=== PATIENT | female | born 1945 | race Caucasian/White ===

== ENCOUNTER 2018-12-12 13:49 | Outpatient (REF) | payer MEDICARE, OTHER, SELFPAY ==
[2018-12-12 20:58] LABS: C-Reactive Protein 0.58 mg/dL (0.0-0.3); Creatine Kinase 64 U/L (26-192)
[2018-12-12 21:52] LABS: ESR 17 MM/HR (0-30)
[2018-12-12 21:58] LABS: Hemoglobin A1C 7.1 % (4.5-6.2)
== END 2018-12-12 14:09 ==
LOC: NCHCN 13:49
PROVIDERS: PCP Specialist/Technologist Athletic Trainer; Visit Provider Family Medicine
DX: E11.311 Type 2 diabetes mellitus with unspecified diabetic retinopathy with macular edema (principal); M79.10 Myalgia, unspecified site; M79.604 Pain in right leg
CPT/HCPCS: 82550; 85652; 83036; 86140

== ENCOUNTER 2018-12-14 08:10 | Outpatient (CLI) | payer MEDICARE, OTHER, SELFPAY ==
--- NOTE | 2018-12-14 09:02 | DI.US_ITS ---
SYMPTOM/DIAGNOSIS: CALF PAIN M79.661 RIGHT LOWER EXTREMITY ULTRASOUND: Deep veins of the right lower extremity show normal compression augmentation and color flow. The saphenofemoral junction appears unremarkable. No sonographic evidence of a Salcedo's cyst is seen. IMPRESSION: No evidence of a right lower extremity deep venous thrombus.
--- NOTE | 2018-12-14 09:13 | DI.RAD_ITS ---
SYMPTOM/DIAGNOSIS: LEG PAIN, RIGHT M79.604 RIGHT TIB FIB: Two views. No acute fracture, dislocation or suspicious lytic or sclerotic lesions are seen There are mild to moderate degenerative changes seen in the knee. The soft tissues are unremarkable. IMPRESSION: No acute abnormality.
== END 2018-12-14 08:30 ==
PROVIDERS: PCP Specialist/Technologist Athletic Trainer; Visit Provider Specialist/Technologist Athletic Trainer
DX: M79.661 Pain in right lower leg (principal); M17.11 Unilateral primary osteoarthritis, right knee
CPT/HCPCS: 73590; 93971

== ENCOUNTER 2018-12-18 16:51 | Outpatient (CLI) | payer MEDICARE, OTHER, SELFPAY ==
--- NOTE | 2018-12-18 13:48 | DI.RAD_ITS ---
SYMPTOMS/DIAGNOSIS: RT KNEE PAIN, M25.561 RIGHT KNEE: Four views. No priors. There is moderate narrowing of the medial femoral tibial joint space with flattening of the articular surfaces. There is subchondral sclerosis and periarticular spurring of the medial femoral tibial joint space. There is mild periarticular spurring at the patellofemoral joint. No acute fracture or dislocation is identified. The soft tissues are unremarkable. IMPRESSION: Moderately severe degenerative changes of the right knee particularly involving the medial femoral tibial joint.
== END 2018-12-18 17:11 ==
PROVIDERS: PCP Specialist/Technologist Athletic Trainer; Visit Provider Specialist/Technologist Athletic Trainer
DX: M25.561 Pain in right knee (principal); M17.11 Unilateral primary osteoarthritis, right knee
CPT/HCPCS: 73562

== ENCOUNTER 2018-12-18 22:30 | Outpatient (REF) | payer MEDICARE, OTHER, SELFPAY ==
[2018-12-18 22:37] LABS: C-Reactive Protein 0.61 mg/dL (0.0-0.3); Uric Acid 3.7 mg/dL (2.6-6.0)
[2018-12-18 23:22] LABS: ESR 21 MM/HR (0-30)
== END 2018-12-18 22:50 ==
LOC: NCHCN 22:30
PROVIDERS: PCP Specialist/Technologist Athletic Trainer; Visit Provider Specialist/Technologist Athletic Trainer
DX: M25.561 Pain in right knee (principal)
CPT/HCPCS: 85652; 84550; 86140

== ENCOUNTER → 2019-01-04 10:31 | Outpatient (BNVA) | payer MEDICARE, OTHER, SELFPAY | PROVIDERS: PCP Specialist/Technologist Athletic Trainer; Referring Provider Specialist/Technologist Athletic Trainer; Visit Provider Orthopaedic Surgery | DX: M17.11 Unilateral primary osteoarthritis, right knee (principal) | CPT/HCPCS: 99211; 99213 ==

== ENCOUNTER 2019-01-30 08:58 | Outpatient (CLI) | payer MEDICARE, OTHER, SELFPAY ==
[2019-01-30 10:33] LABS: Abs Immature Grans 0.01 k/cumm (0.0-0.09); Absolute Basophil Count 0.09 k/cumm (0.0-0.2); Absolute Eosinophil Count 0.17 k/cumm (0.0-0.7); Absolute Lymphocyte Count 2.05 k/cumm (1.2-3.4); Absolute Monocyte Count 0.61 k/cumm (0.11-0.7); Absolute Neutrophil Count 5.39 k/cumm (1.2-6.7); Basophils % 1.1; HCT 46.5 % (36.0-46.0); Immature Grans % 0.1; Lymphocytes % 24.6; Mean Corp. HGB Concentration 32.3 g/dL (32.0-36.0); Mean Corpuscular Hemoglobin 29.5 pg (27.0-33.0); Mean Corpuscular Volume 91.5 fL (80-95); Mean Platelet Volume 10.1 fL (8.0-11.0); Monocytes % 7.3; Neutrophils % 64.9; Platelet Count 268 x1000/uL (130-400); RBC 5.08 m/cumm (4.00-5.20); RBC Distribution Width 13.8 % (11.7-14.6); White Blood Cell Count 8.32 k/cumm (4.4-10.8)
--- NOTE | 2019-01-30 20:45 | W.PREOPHP ---
History of Present Illness Chief Complaint: right knee pain Narrative: essie is a 73-year-old female with a history of an intracerebral bleed resulting in right-sided weakness who began to note atraumatic proximal tibial pain and giving out with decreasing motion of her right lower extremity which she attributed as a manifestation of her previous bleed. About 3 weeks ago her knee discomfort became intolerable with her noting with her noting difficulty putting on her socks and shoes. She tried Tylenol and Aspercreme lidocaine in an effort to relieve her discomfort. work-up consisting of nonweightbearing x-rays were done which show complete loss of her medial joint space with [id number] with periarticular osteophytes and subchondral sclerosis. Lateral x-ray showed complete loss of her patellofemoral joint with traction spur formation. Total knee arthroplasty was suggested to relieve her advanced OA. She had previously had an open meniscectomy in the s as well as an arthroscopic washout/debridement in 2010 down in [place]. With her orthopedist there trying what sounds like a Synvisc series of 3 Visco elastic supplementation shots which she felt helped until this recent period of intolerable pain. [facility] Medical History Arthritis of knee, right (Acute) History of depression (Chronic) CVA (cerebral vascular accident) (Chronic) Diabetes mellitus (Chronic) GI bleed (Chronic) Gout (Chronic) Hiatal hernia (Chronic) Hypertension (Chronic) TIM (obstructive sleep apnea) (Chronic) Osteoarthritis (Chronic) Surgical History History of appendectomy (Chronic) History of arthroscopic knee surgery (Chronic) History of colonoscopy (Chronic) History of hysterectomy (Chronic) Family History Father Heart disease Social History Smoking/Tobacco Use Status: Never Alcohol Intake: never Drug use: Never Additional Social history: Meds Home Medications Medication Instructions Recorded Confirmed Type amlodipine 10 mg tablet 10 mg PO DAILY 07/11/18 01/30/19 History cholecalciferol (vitamin D3) 2,000 2,000 unit PO DAILY 07/11/18 01/30/19 History unit chewable tablet coenzyme Q10 30 mg capsule 30 mg PO DAILY 07/11/18 01/30/19 History cyanocobalamin (vit B-12) 500 mcg 500 mcg PO DAILY 07/11/18 01/30/19 History tablet dapagliflozin 10 mg tablet 10 mg PO DAILY 07/11/18 01/30/19 History labetalol 200 mg tablet 100 mg PO HS 07/11/18 01/30/19 History lisinopril 20 mg tablet 20 mg PO BID tab 07/11/18 01/30/19 History multivitamin tablet 1 tab PO DAILY 07/11/18 01/30/19 History Allergies Allergy/AdvReac Type Severity Reaction Status Date / Time aspirin Allergy Severe GI Bleed Verified 01/30/19 09:18 ibuprofen [From Motrin] Allergy Severe GI Bleed Verified 01/30/19 09:18 Tetracyclines Allergy Severe Makes my Verified 01/30/19 09:18 skin peel and throat close up acetaminophen [From Percocet] Allergy Intermediate Pt states Verified 01/30/19 09:18 she can take acetaminophen buspirone Allergy Unknown Verified 01/30/19 09:18 codeine Allergy Unknown Verified 01/30/19 09:18 pentazocine [From Talwin] Allergy Unknown Verified 01/30/19 09:18 sulfamethoxazole Allergy Unknown Verified 01/30/19 09:18 [From Bactrim] trimethoprim [From Bactrim] Allergy Unknown Verified 01/30/19 09:18 ciprofloxacin [From Cipro] AdvReac Severe made my Verified 01/30/19 09:18 stomach bleed duloxetine [From Cymbalta] AdvReac Severe made me Verified 01/30/19 09:18 sick and suicidal gabapentin AdvReac Severe Makes me Verified 01/30/19 09:18 want to commit suicide prednisone AdvReac Severe Raises BP Verified 01/30/19 09:18 and blood sugar per Pt oxycodone [From Percocet] AdvReac Unknown Verified 01/30/19 09:18 propoxyphene AdvReac Unknown Verified 01/30/19 09:18 [From Darvocet-N] Results Labs : 01/30/19 10:14 Laboratory Results - last 24 hr 01/30/19 10:14 WBC 8.32 RBC 5.08 Hgb 15.0 Hct 46.5 H MCV 91.5 MCH 29.5 MCHC 32.3 RDW 13.8 Plt Count 268 MPV 10.1 Immature Gran % 0.1 Neutrophils % 64.9 Lymphocytes % 24.6 Monocytes % 7.3 Eosinophils % 2.0 Basophils % 1.1 Absolute Neutrophils 5.39 Absolute Lymphocytes 2.05 Absolute Monocytes 0.61 Absolute Eosinophils 0.17 Absolute Basophils 0.09
--- NOTE | 2019-01-30 21:29 | HPE_ITS ---
Assessment and Plan (1) Arthritis of knee, right: Current visit: Yes Status: Acute End-stage arthritis and is 73-year-old female with a past history of a stroke controlled diabetes and hypertension with diminished right knee function secondary to pain and loss of range of motion. A total knee replacement is reviewed with the patient using the prosthetic components to outline the surgical procedure with possible complications reviewed as well as measures taken to diminish risks associated with the procedure. Additionally a brief review of the usual postop course is reviewed mostly consisting of the patient has to be an active participant in physical therapy to obtain a good result from the procedure. History of Present Illness Chief Complaint: Right knee pain Narrative: essie is a 73-year-old female with a history of an intracerebral bleed resulting in right-sided weakness who began to note atraumatic proximal tibial pain and giving out with decreasing motion of her right lower extremity which she attributed as a manifestation of her prev ious bleed. About 3 weeks ago her knee discomfort became intolerable with her noting with her noting difficulty putting on her socks and shoes. She tried Tylenol and Aspercreme lidocaine in an effort to relieve her discomfort. work-up consisting of nonweightbearing x-rays were done which show complete loss of her medial joint space with [id number] with periarticular osteophytes and subchondral sclerosis. Lateral x-ray showed complete loss of her patellofemoral joint with traction spur formation. Total knee arthroplasty was suggested to relieve her advanced OA. She had previously had an open meniscectomy in the 70s as well as an arthroscopic washout/debridement in 2010 down in [place]. With her orthopedist there trying what sounds like a Synvisc series of 3 Visco elastic supplementation shots which she felt helped until this recent period of intolerable pain. Pertinent Surgical Information Patient is a 73-year-old female with chronic decreased functional capacity on her right side status post a prior 2012 CVA with recent intolerable knee pain who has a history of controlled hypertension, sleep Apnea without CPAP use, kameron betes and depression without a history of prior cardiovascular disease/nitroglycerin use who presents now for total knee replacement to relieve her intolerable pain and improve her functional range of motion.. Denies previous medical history of: PA, use of sublingual nitroglycerin, seizures, thyroid disease, liver disease, hepatitis, hematologic disorders Denies previous complications from surgery or anesthesic agents with respect to high fever, prolonged vomiting and difficulty waking up Review of Systems Constitutional Denies fever(s) and Denies headache(s) ENT Denies headache(s), Denies nasal congestion and Denies sore throat Comments: has had chronic rhinorrhea since stroke without fever or headache Cardiovascular Denies chest pain, Denies chest pain with activity, Denies palpitations, Denies dyspnea on exertion, Denies orthopnea and Denies paroxysmal nocturnal dyspnea Respiratory Denies cough, Denies excessive phlegm production, Denies pain on inspiration, Denies dyspnea on exertion and Denies wheezing Gastrointestinal Denies abdominal pain, Denies melena, Denies hematochezia, Denies nausea and Denies vomiting Genitourinary Denies hematuria, Denies urinary frequency and Denies dysuria Comments: Denies burning sensation with urination Musculoskeletal Reports as per HPI Neurologic Denies headache(s) Psychiatric Denies anxiety and Denies depression Endocrine Denies palpitations Comments: Denies any unplanned weight changes Allergic/Immunologic Denies wheezing PFSH Medical History Arthritis of knee, right (Acute) History of depression (Chronic) CVA (cerebral vascular accident) (Chronic) Diabetes mellitus (Chronic) GI bleed (Chronic) Gout (Chronic) Hiatal hernia (Chronic) Hypertension (Chronic) TIM (obstructive sleep apnea) (Chronic) Osteoarthritis (Chronic) Surgical History History of appendectomy (Chronic) History of arthroscopic knee surgery (Chronic) History of colonoscopy (Chronic) History of hysterectomy (Chronic) Family History Father Heart disease Social History Smoking/Tobacco Use Status: Never Alcohol Intake: never Drug use: Never Additional Social history: Meds Home Medications Medication Instructions Recorded Confirmed Type amlodipine 10 mg tablet 10 mg PO DAILY 07/11/18 01/30/19 History cholecalciferol (vitamin D3) 2,000 2,000 unit PO DAILY 07/11/18 01/30/19 History unit chewable tablet coenzyme Q10 30 mg capsule 30 mg PO DAILY 07/11/18 01/30/19 History cyanocobalamin (vit B-12) 500 mcg 500 mcg PO DAILY 07/11/18 01/30/19 History tablet dapagliflozin 10 mg tablet 10 mg PO DAILY 07/11/18 01/30/19 History labetalol 200 mg tablet 100 mg PO HS 07/11/18 01/30/19 History lisinopril 20 mg tablet 20 mg PO BID tab 07/11/18 01/30/19 History multivitamin tablet 1 tab PO DAILY 07/11/18 01/30/19 History Allergies Allergy/AdvReac Type Severity Reaction Status Date / Time aspirin Allergy Severe GI Bleed Verified 01/30/19 09:18 ibuprofen [From Motrin] Allergy Severe GI Bleed Verified 01/30/19 09:18 Tetracyclines Allergy Severe Makes my Verified 01/30/19 09:18 skin peel and throat close up acetaminophen [From Percocet] Allergy Intermediate Pt states Verified 01/30/19 09:18 she can take acetaminophen buspirone Allergy Unknown Verified 01/30/19 09:18 codeine Allergy Unknown Verified 01/30/19 09:18 pentazocine [From Talwin] Allergy Unknown Verified 01/30/19 09:18 sulfamethoxazole Allergy Unknown Verified 01/30/19 09:18 [From Bactrim] trimethoprim [From Bactrim] Allergy Unknown Verified 01/30/19 09:18 ciprofloxacin [From Cipro] AdvReac Severe made my Verified 01/30/19 09:18 stomach bleed duloxetine [From Cymbalta] AdvReac Severe made me Verified 01/30/19 09:18 sick and suicidal gabapentin AdvReac Severe Makes me Verified 01/30/19 09:18 want to commit suicide prednisone AdvReac Severe Raises BP Verified 01/30/19 09:18 and blood sugar per Pt oxycodone [From Percocet] AdvReac Unknown Verified 01/30/19 09:18 propoxyphene AdvReac Unknown Verified 01/30/19 09:18 [From Darvocet-N] Exam Const General: cooperative HENMT Mouth: other Throat: posterior oropharynx normal Eyes General: appearance normal, both eyes and all related structures Conjunctivae: conjunctivae normal Sclera: sclerae normal Neck Neck: no JVD Carotids: normal carotid upstroke and no bruits Resp Effort & Inspection: normal respiratory effort and able to speak in complete sentences Auscultation: clear to auscultation bilaterally, no rales, no rhonchi and no wheezes Cardio Rate: regular rate Heart Sounds: S1 normal, S2 normal and no murmurs Bruits: no abdominal aortic bruits Pulses: normal peripheral pulses Other: No pulsatile mass noted with palpation over the abdominal aorta GI Palpation: soft and no hepatosplenomegaly Auscultation: normal bowel sounds General: No CVA tenderness Extrem General: no pedal edema Other: decreased light touch sensatio with intact dp and pt pulses.knee exam shows loss of full extension with valgus alignmentwith flexion limited to 80 degrees with pain provoked there is mcl laxity evident. Results Labs : 01/30/19 10:14 Laboratory Results - last 24 hr 01/30/19 10:14 WBC 8.32 RBC 5.08 Hgb 15.0 Hct 46.5 H MCV 91.5 MCH 29.5 MCHC 32.3 RDW 13.8 Plt Count 268 MPV 10.1 Immature Gran % 0.1 Neutrophils % 64.9 Lymphocytes % 24.6 Monocytes % 7.3 Eosinophils % 2.0 Basophils % 1.1 Absolute Neutrophils 5.39 Absolute Lymphocytes 2.05 Absolute Monocytes 0.61 Absolute Eosinophils 0.17 Absolute Basophils 0.09
== END 2019-01-30 09:18 ==
PROVIDERS: PCP Specialist/Technologist Athletic Trainer; Visit Provider Orthopaedic Surgery
DX: M25.561 Pain in right knee (principal); M17.11 Unilateral primary osteoarthritis, right knee; Z01.818 Encounter for other preprocedural examination; E11.9 Type 2 diabetes mellitus without complications; I10 Essential (primary) hypertension
CPT/HCPCS: 36415; 85025

== ENCOUNTER 2019-02-05 05:53 | Inpatient (IN) | payer MEDICARE, OTHER, SELFPAY ==
--- NOTE | 2019-01-30 15:48 | CMPROGNOTE_ITS ---
Care Management Progress Note S/O-Met with Ally during her pre-op visit today to discuss plans for her surgery and recovery next week. She is 73 yo woman who lives with her SO in a mobile home in [facility], with 3-4 steps to enter, no rail but SO is putting one in. She had one son, who is following auto accident. Her SO has 4 adult children, 3 of whom live nearby. She is currently using a quad cane to get around, but also has walker at home. She does not drive, but her SO does. She knows she will need PT after her d/c but would like to wait until after her surgery to see how she progresses with PT and then decided on HH for PT vs OP PT. A-73 yo woman scheduled for TKA next week with Dr Monge. P-CM will follow her during acute admission to further assist with plans.
[2019-02-05] VITALS (16 sets, daily range): BP systolic 122–178; BP diastolic 70–86; PULSE 70–83; RESP 12–18; TEMP 36.2–37.2; O2SAT 90–98
[2019-02-05] MEDS: Lactated Ringers 1,000 ML 80 ML IV ×2 (06:57→10:34)
[2019-02-05] MEDS: Bupivacaine LIPOSOME/PF 133 MG/10 ML VIAL IJ (07:13)
[2019-02-05] MEDS: Bupivacaine 0.5% Pres-Free 30 ML VIAL (07:13)
[2019-02-05] MEDS: ceFAZolin 2 GM/50 ML BAG IVPB (07:27)
[2019-02-05] MEDS: Hydrogen Peroxide 3% 480 ML BTL (08:42)
--- NOTE | 2019-02-05 10:23 | DI.RAD_ITS ---
SYMPTOM/DIAGNOSIS: CHECK TOTAL KNEE COMPONENTS IN RR RIGHT KNEE: Three views were obtained and show a total knee joint prosthesis in position. The components appear well seated. No other significant bony abnormality is seen.
[2019-02-05] MEDS: POTASSIUM CHLORIDE/0.9% NACL 1,000 ML 125 MEQ IV ×2 (11:17→20:06)
[2019-02-05] MEDS: Enoxaparin 40 MG/0.4 ML SYR SC (11:22)
[2019-02-05] MEDS: Ketorolac 30 MG/ML VIAL IVP ×3 (12:14→23:26)
[2019-02-05] MEDS: Normal Saline Flush 10 ML SYR IV ×2 (12:15→18:02)
[2019-02-05] MEDS: ceFAZolin 2,000 MG in Normal Saline 100 ML 200 MG IVPB ×3 (12:20→23:26)
[2019-02-05] MEDS: oxyCODONE-CR 10 MG TABCR PO ×2 (12:33→23:25)
--- NOTE | 2019-02-05 13:16 | NUR.NOTE ---
Nursing Note: Pt noted to have an unknown adverse reaction to oxycodone on her allergy list and oxycodone scheduled Q12H. Per LIBBY Carrasquillo RN and Dr. Monge, oxycodone to be administered. Oxy administered by RN with no adverse reactions noted. RN will continue to monitor.
--- NOTE | 2019-02-05 14:14 | PT.INIE ---
Date of service: 02/05/19 Time of Service: 13:21 PT Notes Inpatient Physical Therapy Evaluation Date: 02/05/2019 Referring Doctor: Romie Monge MD PT Orders: PT CONSULT: Mobilize postop right total knee. Get OOB ambulating in room this afternoon. WBAT to right leg Precautions: Fall. Standard. WBAT to right LE using FWW. Patient Profile/Admitting Diagnosis: 73-year-old female with a history pertinent for right-sided weakness due to CVA in 2012 who presents with end-stage osteoarthritis and is status post right knee total arthroplasty on post-op day 0. PMHX: Medical History Arthritis of knee, right (Acute) History of depression (Chronic) CVA (cerebral vascular accident) (Chronic) Diabetes mellitus (Chronic) GI bleed (Chronic) Gout (Chronic) Hiatal hernia (Chronic) Hypertension (Chronic) TIM (obstructive sleep apnea) (Chronic) Osteoarthritis (Chronic) Surgical History History of appendectomy (Chronic) History of arthroscopic knee surgery (Chronic) History of colonoscopy (Chronic) History of hysterectomy (Chronic) Social History/Home Situation: Patient lives with significant other in a mobile home with 2 steps to enter leading to a porch rails on both sides. She was independent with indoor and outdoor ambulation using ambulatory device until 2 months ago when her right knee started to significantly limit her due to pain. Patient started to use a small-based quad cane for fear of falling due to her worsening pain symptoms. Current Functional Limitations: Need for physical assistance and assistive device in doing all bed mobility, transfers, and ambulation task performance Equipment Owned/DME: [facility], FWW Subjective: Patient is pleasant and cooperative. She is agreeable to a PT consult and treatment today. She reports feeling little needles sticking her during ambulation activity from bedside to recliner some 10 feet away using FWW; symptom resolved with resumption of seated position. She hopes to ultimately go back home to her home with significant other. Objective: General Observation: Patient seen resting in bed with ANNETTE wraps on right LE covered with knee immobilizer. FRENCH on left lower extremity. Anti-DVT pump on left lower extremity. Aiken catheter in place. IV in left UE. Mental Status: Alert and oriented x3 Pain: Reports 0/10 pain at rest, 4/10 with with weight bearing. Vital Signs: In supine 172/70 2 mmHg, 94% on room air, 73 bpm. In sitting, 143/778 mmHg, 94% on room air, 92 bpm. In standing, 138/70 8 mmHg, 97% on room air, 70 bpm. ROM: Right Upper Extremity: Shoulder Flexion WFL. Shoulder abduction WFL. Elbow flexion WFL. Wrist flexion WFL. Functional opening and closing of hand WFL. Left Upper Extremity: Shoulder Flexion WFL. Shoulder abduction WFL. Elbow flexion WFL. Wrist flexion WFL. Functional opening and closing of hand WFL. Right Lower Extremity: Hip flexion 0-30 in standing, unable in supine. Hip abduction 0-20. Knee flexion unable at this time even without immobilizer in supine; 0-10 degrees passively. Ankle dorsiflexion WFL. Ankle plantarflexion WFL. Left Lower Extremity: Hip flexion WFL. Hip abduction WFL. Knee flexion WFL. Ankle dorsiflexion WFL. Ankle plantarflexion WFL. Strength: Right Upper Extremity: Shoulder flexors 5/5. Shoulder abductors 5/5. Elbow flexors 5/5. Elbow extensors 5/5. Physical Optics Teacher strong. Left Upper Extremity: Shoulder flexors 5/5. Shoulder abductors 5/5. Elbow flexors 5/5. Elbow extensors 5/5. Physical Optics Teacher strong. Right Lower Extremity: Hip flexors 3-/5. Hip abductors 3-/5. Knee flexors 3-/5. Knee extensors 3-/5. Ankle dorsiflexors 5/5. Ankle plantarflexors 5/5. Left Lower Extremity:Hip flexors 5/5. Hip abductors 5/5. Knee flexors 5/5. Knee extensors 5/5. Ankle dorsiflexors 5/5. Ankle plantarflexors 5/5. Sensation: Intact as to pain and pressure to B LE Bed Mobility/Transfers: Rolling minimal assist Supine to sit minimal assist Sit to supine minimal assist with FWW Sit to stand minimal assist with FWW Stand to sit minimal assist with FWW Bed to chair minimal assist with FWW Chair to bed minimal assist with FWW Gait: Patient tolerated level surface ambulation of up to 10 feet and 2 sidesteps using FWW with minimal assist and minimal verbal cueing for strategies to manage right LE for limb advancement and movement transitions while knee immobilizer on. Patient reports 4/10 pain on the right knee and sensations of [id number] that subsided with resumption of seated position. Balance: Static Sitting: Good Dynamic Sitting: Good Static Standing: Fair Dynamic Standing: Fair Special Tests: Mobility Limitations Standardized Measure [facility] AM-PAC 6 clicks Basic Mobility Inpatient Short Form: Raw Score: 18 CMS Score: 47% deficit Informed Consent/Education: Patient instructed in purpose of PT consult and plan of care. Patient was also instructed to do hourly performance of quadriceps setting muscle exercises held for 5 counts x 10 as well as ankle pumping exercises x30 every hour in order to maximize mobilization and range of motion gains. Assessment: patient is a 73 year old female referred to physical therapy services with the diagnosis of end-stage osteoarthritis status post right total knee arthroplasty, mobility decline, and generalized weakness. Patient presents with clinical signs and symptoms consistent with current/admitting diagnoses that have resulted to mobility limitations, gait instability, generalized weakness, and impairment of motor control as demonstrated by the following impairment level findings: 1. Decreased strength to our LE major muscle groups 2. Impaired sitting/standing balance 3. Impaired activity tolerance 4. Limitation of joint range of motion in right hip and knee joints Impairments are contributing to the following functional limitations: 1. Dependent bed mobility skills 2. Increased dependence with transfers 3. Inability to safely ambulate without assistive device and physical assistance 4. Increase completion time for mobility ADL performance 5. Increased fall risk 6. Inability to negotiate steps alone safely Patient is assessed as a Moderate 03100 complexity based on the following: History: 33-year-old female with history of right-sided weakness from CVA in 2013 resulting from an intracerebral bleed who is status post right total knee arthroplasty secondary to end-stage OA Examination: Underlying impairments and functional limitations as noted above Presentation: Evolving 49382 moderate complexity Decision Makin moderate complexity Goals: Goals X1 week 1. Supine-Sit independent 2. Sit-Supine independent 3. Sit-Stand independent 4. Stand-Sit independent 5. Bed-Chair independent 6. Chair-Bed independent 7. Independent gait on level surface with use of least restrictive device for at least 200 feet without report of pain nor dyspnea 8. Independent stair negotiation while holding onto bilateral rails for at least 5 steps without report of pain nor dyspnea 9. Independent with home exercise program 10. Good static and dynamic standing balance/tolerance Plan of Care/Treatment Plan: 1-2x/day, 7 days/week x 1 week. Plan of care has been reviewed with the DIRECTOR FRAUD providing the service under Physical Therapy direction. Initiate Physical Therapy intervention for strengthening, bed mobility, transfers, gait, stairs, balance training, use of assistive device. DISCHARGE RECOMMENDATIONS: Patient will benefit from home health physical therapy services in order to assess for home safety, maximize mobility gains at discharge destination, and establish/implement a functional maintenance program for strengthening and fall reduction. No equipment needs at this time. Encourage use of proper footwear once swelling resolves in order to maximize weight bearing and shock absorption through B LE. TREATMENT CODE/TIME: 49245 for 30 minutes, 35096 for 19 minutes, beginning at 13:21 PM. Thank you for this referral. Bhakti Ferreira, PT, DPT, CLT [facility]
[2019-02-05] MEDS: Docusate Sodium 100 MG CAP PO ×2 (14:19→19:23)
--- NOTE | 2019-02-05 14:25 | IN_ITS ---
Date of service: 02/05/19 Time of Service: 13:21 PT Notes Inpatient Physical Therapy Evaluation Date: 02/05/2019 Referring Doctor: Romie Monge MD PT Orders: PT CONSULT: Mobilize postop right total knee. Get OOB ambulating in room this afternoon. WBAT to right leg Precautions: Fall. Standard. WBAT to right LE using FWW. Patient Profile/Admitting Diagnosis: 73-year-old female with a history pertinent for right-sided weakness due to CVA in 2012 who presents with end-stage osteoarthritis and is status post right knee total arthroplasty on post-op day 0. PMHX: Medical History Arthritis of knee, right (Acute) History of depression (Chronic) CVA (cerebral vascular accident) (Chronic) Diabetes mellitus (Chronic) GI bleed (Chronic) Gout (Chronic) Hiatal hernia (Chronic) Hypertension (Chronic) TIM (obstructive sleep apnea) (Chronic) Osteoarthritis (Chronic) Surgical History History of appendectomy (Chronic) History of arthroscopic knee surgery (Chronic) History of colonoscopy (Chronic) History of hysterectomy (Chronic) Social History/Home Situation: Patient lives with significant other in a mobile home with 2 steps to enter leading to a porch rails on both sides. She was independent with indoor and outdoor ambulation using ambulatory device until 2 months ago when her right knee started to significantly limit her due to pain. Patient started to use a small-based quad cane for fear of falling due to her worsening pain symptoms. Current Functional Limitations: Need for physical assistance and assistive device in doing all bed mobility, transfers, and ambulation task performance Equipment Owned/DME: [facility], FWW Subjective: Patient is pleasant and cooperative. She is agreeable to a PT consult and treatment today. She reports feeling little needles sticking her during ambulation activity from bedside to recliner some 10 feet away using FWW; symptom resolved with resumption of seated position. She hopes to ultimately go back home to her home with significant other. Objective: General Observation: Patient seen resting in bed with ANNETTE wraps on right LE covered with knee immobilizer. FRENCH on left lower extremity. Anti-DVT pump on left lower extremity. Aiken catheter in place. IV in left UE. Mental Status: Alert and oriented x3 Pain: Reports 0/10 pain at rest, 4/10 with with weight bearing. Vital Signs: In supine 172/70 2 mmHg, 94% on room air, 73 bpm. In sitting, 143/778 mmHg, 94% on room air, 92 bpm. In standing, 138/70 8 mmHg, 97% on room air, 70 bpm. ROM: Right Upper Extremity: Shoulder Flexion WFL. Shoulder abduction WFL. Elbow flexion WFL. Wrist flexion WFL. Functional opening and closing of hand WFL. Left Upper Extremity: Shoulder Flexion WFL. Shoulder abduction WFL. Elbow flexion WFL. Wrist flexion WFL. Functional opening and closing of hand WFL. Right Lower Extremity: Hip flexion 0-30 in standing, unable in supine. Hip abduction 0-20. Knee flexion unable at this time even without immobilizer in supine; 0-10 degrees passively. Ankle dorsiflexion WFL. Ankle plantarflexion WFL. Left Lower Extremity: Hip flexion WFL. Hip abduction WFL. Knee flexion WFL. Ankle dorsiflexion WFL. Ankle plantarflexion WFL. Strength: Right Upper Extremity: Shoulder flexors 5/5. Shoulder abductors 5/5. Elbow flexors 5/5. Elbow extensors 5/5. Sheeter Machine Operator strong. Left Upper Extremity: Shoulder flexors 5/5. Shoulder abductors 5/5. Elbow flexors 5/5. Elbow extensors 5/5. Sheeter Machine Operator strong. Right Lower Extremity: Hip flexors 3-/5. Hip abductors 3-/5. Knee flexors 3-/5. Knee extensors 3-/5. Ankle dorsiflexors 5/5. Ankle plantarflexors 5/5. Left Lower Extremity:Hip flexors 5/5. Hip abductors 5/5. Knee flexors 5/5. Knee extensors 5/5. Ankle dorsiflexors 5/5. Ankle plantarflexors 5/5. Sensation: Intact as to pain and pressure to B LE Bed Mobility/Transfers: Rolling minimal assist Supine to sit minimal assist Sit to supine minimal assist with FWW Sit to stand minimal assist with FWW Stand to sit minimal assist with FWW Bed to chair minimal assist with FWW Chair to bed minimal assist with FWW Gait: Patient tolerated level surface ambulation of up to 10 feet and 2 sidesteps using FWW with minimal assist and minimal verbal cueing for strategies to manage right LE for limb advancement and movement transitions while knee immobilizer on. Patient reports 4/10 pain on the right knee and sensations of [id number] that subsided with resumption of seated position. Balance: Static Sitting: Good Dynamic Sitting: Good Static Standing: Fair Dynamic Standing: Fair Special Tests: Mobility Limitations Standardized Measure [facility] AM-PAC 6 clicks Basic Mobility Inpatient Short Form: Raw Score: 18 CMS Score: 47% deficit Informed Consent/Education: Patient instructed in purpose of PT consult and plan of care. Patient was also instructed to do hourly performance of quadriceps setting muscle exercises held for 5 counts x 10 as well as ankle pumping exercises x30 every hour in order to maximize mobilization and range of motion gains. Assessment: patient is a 73 year old female referred to physical therapy services with the diagnosis of end-stage osteoarthritis status post right total knee arthroplasty, mobility decline, and generalized weakness. Patient presents with clinical signs and symptoms consistent with current/admitting diagnoses that have resulted to mobility limitations, gait instability, generalized weakness, and impairment of motor control as demonstrated by the following impairment level findings: 1. Decreased strength to our LE major muscle groups 2. Impaired sitting/standing balance 3. Impaired activity tolerance 4. Limitation of joint range of motion in right hip and knee joints Impairments are contributing to the following functional limitations: 1. Dependent bed mobility skills 2. Increased dependence with transfers 3. Inability to safely ambulate without assistive device and physical assistance 4. Increase completion time for mobility ADL performance 5. Increased fall risk 6. Inability to negotiate steps alone safely Patient is assessed as a Moderate 53220 complexity based on the following: History: 33-year-old female with history of right-sided weakness from CVA in 2013 resulting from an intracerebral bleed who is status post right total knee arthroplasty secondary to end-stage OA Examination: Underlying impairments and functional limitations as noted above Presentation: Evolving 12439 moderate complexity Decision Makin moderate complexity Goals: Goals X1 week 1. Supine-Sit independent 2. Sit-Supine independent 3. Sit-Stand independent 4. Stand-Sit independent 5. Bed-Chair independent 6. Chair-Bed independent 7. Independent gait on level surface with use of least restrictive device for at least 200 feet without report of pain nor dyspnea 8. Independent stair negotiation while holding onto bilateral rails for at least 5 steps without report of pain nor dyspnea 9. Independent with home exercise program 10. Good static and dynamic standing balance/tolerance Plan of Care/Treatment Plan: 1-2x/day, 7 days/week x 1 week. Plan of care has been reviewed with the AUTO FORMER MACHINE OPERATOR providing the service under Physical Therapy direction. Initiate Physical Therapy intervention for strengthening, bed mobility, transfers, gait, stairs, balance training, use of assistive device. DISCHARGE RECOMMENDATIONS: Patient will benefit from home health physical therapy services in order to assess for home safety, maximize mobility gains at discharge destination, and establish/implement a functional maintenance program for strengthening and fall reduction. No equipment needs at this time. Encourage use of proper footwear once swelling resolves in order to maximize weight bearing and shock absorption through B LE. TREATMENT CODE/TIME: 71528 for 30 minutes, 06063 for 19 minutes, beginning at 13:21 PM. Thank you for this referral. Bhakti Ferreira, PT, DPT, CLT [facility]
--- NOTE | 2019-02-05 14:53 | NUR.NOTE ---
Nursing Note: Pt to MS floor from OR/PACU at 1100am. A&Ox3, VSS. Pt transferred from stretcher to bed with hover mat. Immobilizer in place over surgical dressing. CMSTs, pedal pulses +. Pt oriented to MS floor, call powers, etc. Pt's at bedside. RN will continue to monitor.
[2019-02-05] MEDS: Lisinopril 20 MG TAB PO (19:23)
[2019-02-05] MEDS: Labetalol 100 MG TAB PO (22:11)
[2019-02-05] MEDS: HYDROcodone 5/Acetaminophen 325 TAB PO (22:18)
[2019-02-06] VITALS (7 sets, daily range): BP systolic 115–156; BP diastolic 68–79; PULSE 71–88; RESP 18–21; TEMP 36.6–38.2; O2SAT 92–97
[2019-02-06] MEDS: HYDROcodone 5/Acetaminophen 325 TAB PO ×3 (03:36→16:10)
[2019-02-06] MEDS: Ketorolac 30 MG/ML VIAL IVP ×4 (06:03→23:05)
[2019-02-06] MEDS: ceFAZolin 2,000 MG in Normal Saline 100 ML 200 MG IVPB (06:04)
--- NOTE | 2019-02-06 07:04 | ROE_ITS ---
REPORT OF OPERATIVE PROCEDURE DATE OF PROCEDURE February 05, 2019 PREOPERATIVE DIAGNOSIS: Osteoarthritis right knee with varus deformity. POSTOPERATIVE DIAGNOSIS: Osteoarthritis right knee with varus deformity. PROCEDURE: Right total knee arthroplasty. COMPONENTS USED: A size 2.5 posterior cruciate substituting femoral component, size 2.5 tibial component, a size 2.5 1 0-mm thick posterior cruciate substituting insert, and a 32-mm tri-pronged patella. All components we re cemented. ANESTHESIA: Spinal, by Veronica Ponce CRNA SURGEON: Romie Monge M.D. ASSOCIATE: Amari Castro INDICATIONS: This is a 73-year-old white female with end-stage osteoarthritis of her right knee with varus deformi ty. The patient has reached a point where she is disabled in terms of ambulation and activities of da leodan living. She is no longer getting relief from conservative treatment Total knee arthroplasty was r ecommended to alleviate her pain and hopefully restore some of her previous ambulatory abilities. The risks and complications of the procedure were explained to the patient in detail preoperatively. PROCEDURE: The patient was taken to the Operating Room on 02/05/2019. She was placed supine on the operating tab le and a general anesthetic was administered. Proximal tourniquet was applied to the right thigh and the right lower extremity was prepped from toes to tourniquet and draped free in the usual sterile fa shion. An anterior midline incision was then made beginning about 4 inches proximal to the patella. Distall y, it was carried down slightly medial to the midline to incorporate an old scar. The incision was ca rried down just distal to the tibial tubercle. The incision was done under tourniquet control. A med ial parapatellar capsular incision was made, it was extended proximally and longitudinally in line wi th the quadriceps tendon. A complete medial subperiosteal release was performed to provide soft tiss ue correction of her varus deformity. Anterior and posterior cruciate ligaments were sacrificed, medial and lateral menisci were excised. I t was only a bare remnant of a medial meniscus still present due to a previous meniscectomy. Posterio r capsule was then freed up from the posterior tibia and from the posterior femur using periosteal el evators. The distal femur was resected using intramedullary alignment guides and jigs. She was found to require a size 2.5 femoral component. The proximal tibia was resected using extramedullary alignment guides and jigs. She was found to req uire a size 2.5 tibial component. The keel for the tibial component was then reamed and punched down to proper rotational alignment. Trial reduction showed a 10-mm insert allowed full extension and provided stability to varus valgus s tressing through the whole range of flexion. was performed and it was felt that the knee had good stability from 0 to 90 degrees of flexion while still allowing full extension with a 12.5-mm insert. Trial components were removed. The patella was t hen resected using patellar resection guide. 16 millimeters thickness of patella was left after resec tion. Using the guides for the tripronged patella, it was found that a 32-mm diameter patella was pro per size, and using the drill guide the holes for the prongs were reamed down to proper rotational al ignment. The proximal tibia was prepared for cementing with pulsed irrigation lavage and saline solution and d rying with peroxide-soaked strip sponges. One batch of gentamicin-impregnated methylmethacrylate was vacuum mixed and it was hand packed into the prepared tibia. Cement was placed on the posterior surfa ce of the tibial component and the tibial component was then inserted and impacted into place with th e impactor mallet. Excess cement was trimmed from the margins of the tibial component while the cemen t was still soft using the plastic cement removal tool. Trial components were inserted, including 10-mm insert. The knee was extended to further pressurize t he cement. When the first batch of methylmethacrylate had cured, the trial components were removed. E xcess cement was removed from the margins of the tibial tray. The distal femur and the patella were p repared then prepared for cementing with pulsed irrigation lavage and saline solution, and drying wit h peroxide-soaked strip sponges. Another batch of gentamicin impregnated methylmethacrylate was vacuum mixed and hand packed onto the distal femur and patella. Additional cement was placed on the posterior surface of the femoral compo nent and the patellar component. The femoral component was then impacted into place and was further p ressurized using the trial insert and extending the knee. The patellar component was inserted and pre ssurized using the patellar clamp. Excess cement was trimmed from the margins of the patellar compone nt and the femoral component while the cement was still soft using the plastic cement removal tool. When the second batch of methylmethacrylate had cured, patellar tracking was accessed. The patellar tracked anatomically using the rule of no thumb. The trial insert was removed and at this point, any residual bone and cement debris was removed from the posterior recesses. The knee was irrigated with pulsed irrigation lavage and then Betadine irrigation was placed in the knee and allowed to sit for a minute before suctioning. The actual insert 10 mm size 2.5 posterior cruciate substituting was then placed in the tibial component and reduced on the femoral condyles. The right knee was then flexed o elkin soft goods and closure was begun. The knee capsule and subcutaneous tissue was infiltrated with 0.5% Marcaine with epinephrine solution . The medial parapatellar capsular incision and the incision of the quadriceps tendon were repaired w ith interrupted [id number] sutures of #1-Vicryl suture material. The subcu was approximated with interrupted #2-0 Vicryl sutures. The skin edges were approximated with interrupted #3-0 nylon sutur es using [id number] technique. The wound was dressed with Xeroform gauze, sterile gauze, 4x4s, ABD pad and wrapped with a 4-inch Kerlix bandage. A long-leg Tovar compressive dressing was applied. The tourniquet was released. A knee immobilizer splint was placed over the Tovar compressive dress ing to maintain the knee in extension. The patient received 1 gram of tranexamic acid prior to tourniquet inflation and a second gram after tourniquet deflation. Blood loss was minimal due to the tourniquet use. The patient tolerated the procedure well and she was discharged to the Recovery Room in good conditio n.
[2019-02-06 07:05] LABS: HCT 37.4 % (36.0-46.0); HGB 11.6 g/dL (12.0-15.5); Mean Corpuscular Volume 93.5 fL (80-95); Mean Platelet Volume 9.9 fL (8.0-11.0); Platelet Count 210 x1000/uL (130-400); RBC Distribution Width 13.6 % (11.7-14.6)
--- NOTE | 2019-02-06 07:46 | PDOC.CMIN ---
- If Service Date Differs Date of service: 02/06/19 Time of Service: 07:46 Care Management Initial Assess REASON FOR HOSPITALIZATION:: Arthritis of (R) Knee PAST MEDICAL HISTORY/PAST SURGICAL HISTORY:: Arthritis of knee, right (Acute). History of depression (Chronic). CVA (cerebral vascular accident) (Chronic). Diabetes mellitus (Chronic). GI bleed (Chronic). Gout (Chronic). Hiatal hernia (Chronic). Hypertension (Chronic). TIM (obstructive sleep apnea) (Chronic). Osteoarthritis (Chronic). History of appendectomy (Chronic). History of arthroscopic knee surgery (Chronic). History of colonoscopy (Chronic). History of hysterectomy (Chronic) PREVIOUS FUNCTIONAL STATUS/SOCIAL/FAMILY SUPPORTS:: Ally resides with her JERRY Beasley in [facility]. Ramos assists [employer] driving as Ally does not drive. Ally reports that Ramos has three children locally whom are supportive. Ally is from [place] and states that she has a brother and sister there whom are supportive. CURRENT FUNCTIONAL STATUS:: Currently Ally is sitting up in her chair when this speech writer visits. She is pleasant and easily engages in discussion. ADVANCE DIRECTIVES:: On file - Ramos Silva is agent Has patient been provided with information about the portal?: Yes Did the patient sign up for the portal?: No CODE STATUS:: Full Code INSURANCE COVERAGE / FINANCIAL ISSUES:: [facility], [facility] CURRENT HOME/COMMUNITY SERVICES/EQUIPMENT:: Currently Ally has no services in the community. She has a quad cane, raised toilet seat and FWW at home. Ally reports that Ramos is getting a shower chair for her. PRIMARY CARE PHYSICIAN:: Patrick Tucker POTENTIAL DISCHARGE NEEDS:: F/U appointment with Dr. Monge. PT - Interested in Outpatient PT through [facility] PATIENT/FAMILY EDUCATION NEEDS:: Review DC instructions, any limitations, and ongoing DC planning discussion. Discuss 'Ask Me Three' ANTICIPATED BARRIERS TO DISCHARGE:: None identified at this time. TRANSPORTATION:: Via private vehicle with Ramos PLAN:: Ally will return home with outpatient PT through [facility] in [facility]. She will F/U with Dr. Monge and plan of care as prescribed. Ally's SO Ramos will transport her when ready.
--- NOTE | 2019-02-06 07:58 | INITIAL_ITS ---
- If Service Date Differs Date of service: 02/06/19 Time of Service: 07:46 Care Management Initial Assess REASON FOR HOSPITALIZATION:: Arthritis of (R) Knee PAST MEDICAL HISTORY/PAST SURGICAL HISTORY:: Arthritis of knee, right (Acute). History of depression (Chronic). CVA (cerebral vascular accident) (Chronic). Diabetes mellitus (Chronic). GI bleed (Chronic). Gout (Chronic). Hiatal hernia (Chronic). Hypertension (Chronic). TIM (obstructive sleep apnea) (Chronic). Osteoarthritis (Chronic). History of appendectomy (Chronic). History of arthroscopic knee surgery (Chronic). History of colonoscopy (Chronic). History of hysterectomy (Chronic) PREVIOUS FUNCTIONAL STATUS/SOCIAL/FAMILY SUPPORTS:: Ally resides with her JERRY Beasley in [facility]. Ramos assists [employer] driving as Ally does not drive. Ally reports that Ramos has three children locally whom are supportive. Ally is from [place] and states that she has a brother and sister there whom are supportive. CURRENT FUNCTIONAL STATUS:: Currently Ally is sitting up in her chair when this sba underwriter visits. She is pleasant and easily engages in discussion. ADVANCE DIRECTIVES:: On file - Ramos Silva is agent Has patient been provided with information about the portal?: Yes Did the patient sign up for the portal?: No CODE STATUS:: Full Code INSURANCE COVERAGE / FINANCIAL ISSUES:: [facility], [facility] CURRENT HOME/COMMUNITY SERVICES/EQUIPMENT:: Currently Ally has no services in the community. She has a quad cane, raised toilet seat and FWW at home. Ally reports that Ramos is getting a shower chair for her. PRIMARY CARE PHYSICIAN:: Patrick Tucker POTENTIAL DISCHARGE NEEDS:: F/U appointment with Dr. Monge. PT - Interested in Outpatient PT through [facility] PATIENT/FAMILY EDUCATION NEEDS:: Review DC instructions, any limitations, and ongoing DC planning discussion. Discuss 'Ask Me Three' ANTICIPATED BARRIERS TO DISCHARGE:: None identified at this time. TRANSPORTATION:: Via private vehicle with Ramos PLAN:: Ally will return home with outpatient PT through [facility] in [facility]. She will F/U with Dr. Monge and plan of care as prescribed. Ally's SO Ramos will transport her when ready.
[2019-02-06] MEDS: Multivitamin w/Minerals TAB 1 TAB PO (08:01)
[2019-02-06] MEDS: Docusate Sodium 100 MG CAP PO ×3 (08:01→20:13)
[2019-02-06] MEDS: Cyanocobalamin 500 MCG TAB PO (08:01)
[2019-02-06] MEDS: Pantoprazole 40 MG TABCR PO (08:01)
[2019-02-06] MEDS: Enoxaparin 40 MG/0.4 ML SYR SC (08:01)
[2019-02-06] MEDS: amLODIPine 10 MG TAB PO (09:21)
[2019-02-06] MEDS: Lisinopril 20 MG TAB PO ×2 (09:21→20:13)
[2019-02-06] MEDS: POTASSIUM CHLORIDE/0.9% NACL 1,000 ML 60 MEQ IV (09:47)
[2019-02-06] MEDS: oxyCODONE-CR 10 MG TABCR PO ×2 (11:32→23:04)
--- NOTE | 2019-02-06 14:08 | W.PM.PROGNOT ---
Date of Service Date of service: 02/06/19 Time of Service: 14:08 Assessment and Plan (1) Status post total knee replacement, right: Current visit: Yes Status: Acute Assessment: Stable postop day #1 right total knee replacement. Plan: DC IV fluids. We will have physical therapy remove her Tovar dressing and start range of motion of her right knee this afternoon. We will use a Cryo/Cuff to the right knee 4 times a day for an hour each time and will mobilize per protocol for total knee replacement. DC home when she is independent with transfers and walking and taking only p.o. pain meds. Subjective Interval history since last seen: She feels pretty good today. Said the pain is tolerable. She feels she has had much less pain than she anticipated. Exam Narrative Exam Narrative: She is afebrile vital signs are stable. Hemoglobin 11.6 g this morning. Neurovascular exam right foot completely normal. She has been up ambulating outside the room. Objective Objective Clinical Data: Abnormal lab results 02/06/19 Range/Units 06:50 Hgb 11.6 L (12.0-15.5) g/dL MCHC 31.0 L (32.0-36.0) g/dL Vital Signs Temperature 37.8 C H 02/06/19 11:20 Temperature Source Tympanic 02/06/19 11:20 Pulse 83 02/06/19 11:20 Pulse Rhythm Regular 02/06/19 07:41 Respiratory Rate 18 02/06/19 11:20 Respiratory Effort Non-Labored 02/06/19 07:41 Respiratory Depth Normal 02/06/19 07:41 Respiratory Pattern Normal 02/06/19 07:41 Blood Pressure 134/72 02/06/19 11:20 Pulse Oximetry 97 02/06/19 11:20 Respiratory End-tidal CO2 42 02/05/19 10:45 Oxygen Delivery Method Room Air 02/06/19 11:20 Oxygen Flow Rate 0 02/06/19 11:20 Pain Level 4 02/06/19 11:32 Comment 02/05/19 22:19 Intake & Output 02/05/19 02/06/19 02/06/19 23:59 11:59 23:59 Intake Total 2596.667 / 3796.500 1053 / 1293 240 / 1293 Output Total 1750 / 2200 100 / 400 300 / 400 Balance 846.667 / 1596.500 953 / 893 -60 / 893 Intake: IV 1636.667 / 2786.500 753 / 753 Oral 960 / 1010 300 / 540 240 / 540 Output: Urine 1750 / 2200 100 / 400 300 / 400 Other: Urine Color Yellow Light Zulma Yellow Urine Appearance Clear Clear Clear Urine Odor None Voiding Methods Bedside Commode Laboratory Results WBC 7.90 k/cumm (4.4-10.8) 02/06/19 06:50 RBC 4.00 m/cumm (4.00-5.20) 02/06/19 06:50 Hgb 11.6 g/dL (12.0-15.5) L 02/06/19 06:50 Hct 37.4 % (36.0-46.0) 02/06/19 06:50 MCV 93.5 fL (80-95) 02/06/19 06:50 MCH 29.0 pg (27.0-33.0) 02/06/19 06:50 MCHC 31.0 g/dL (32.0-36.0) L 02/06/19 06:50 RDW 13.6 % (11.7-14.6) 02/06/19 06:50 Plt Count 210 x1000/uL (130-400) 02/06/19 06:50 MPV 9.9 fL (8.0-11.0) 02/06/19 06:50
--- NOTE | 2019-02-06 14:09 | CHAPLAIN ---
Ally was sitting up in her chair when I visited. She was pleasant but not interested in a longer conversation.
--- NOTE | 2019-02-06 16:02 | PT.INTREAT ---
Date of service: 02/06/19 Time of Service: 16:02 PT Notes Inpatient Physical Therapy Treatment Note [facility] Date: 02/06/19 PRECAUTIONS: Fall, WBAT on R SUBJECTIVE: Ally states that she is feeling pretty good today, that she is having minimal pain. OBJECTIVE: PAIN: Minimal complaints of pain with AAROM into knee flexion BED MOBILITY/TRANSFERS Supine-sit: I Sit-supine: I Sit-stand: SBA Stand-sit: SBA Chair-bed: SBA GAIT Assistive Device: FWW Weight bearing: WBAT R Assist: SBA Distance: 60' in a.m.; 100' in p.m. Deviation: Cueing to increase stride length, cueing for FWW mechanics THEREX: Patient completed a lower extremity strengthening and stabilization program, as per flow sheet. Patient's right knee AAROM is -9-65 degrees with moderate overpressure into knee flexion, with pain at end range. Patient ends with cryocuff to right knee. REMOVAL OF ARANDA: Incision site with minimal bloody drainage, no abnormal redness or sensitivity, no blistering. Replaced with Xeroform gauze, 4x4 gauze, tape, thigh-high FRENCH stocking. ASSESSMENT: Patient tolerated session well with minimal complaints of burning pain in right knee with AAROM into knee flexion. Patient was able to tolerate a progression in gait distance with FWW support and SBA, requiring cueing for increased stride length as well as for FWW mechanics for increased fluidity with gait. Patient would benefit from continued gait and transfer training as well as strengthening for improved mobility and improved ability to perform daily functional tasks at a more independent level. PLAN: Continue with PTs POC TREATMENT CODE/TIME: Session 1: 25 minutes; [id number], [id number] Session 2: 70 minutes; 92307 x3, 11525
[2019-02-06] MEDS: Normal Saline Flush 10 ML SYR IV (17:53)
[2019-02-06] MEDS: Labetalol 100 MG TAB PO (23:04)
[2019-02-07] VITALS (8 sets, daily range): BP systolic 122–168; BP diastolic 73–83; PULSE 82–100; RESP 14–18; TEMP 36.4–37.3; O2SAT 92–95
[2019-02-07] MEDS: HYDROcodone 5/Acetaminophen 325 TAB PO ×2 (05:59→14:00)
[2019-02-07] MEDS: Ketorolac 30 MG/ML VIAL IVP (05:59)
[2019-02-07] MEDS: Normal Saline Flush 10 ML SYR IVP (06:01)
[2019-02-07 07:39] LABS: HCT 35.1 % (36.0-46.0); HGB 11.1 g/dL (12.0-15.5); Mean Corp. HGB Concentration 31.6 g/dL (32.0-36.0); Mean Corpuscular Hemoglobin 29.4 pg (27.0-33.0); Mean Corpuscular Volume 93.1 fL (80-95); Mean Platelet Volume 10.1 fL (8.0-11.0); Platelet Count 197 x1000/uL (130-400); RBC 3.77 m/cumm (4.00-5.20); RBC Distribution Width 13.4 % (11.7-14.6); White Blood Cell Count 9.14 k/cumm (4.4-10.8)
[2019-02-07] MEDS: amLODIPine 10 MG TAB PO (08:26)
[2019-02-07] MEDS: Lisinopril 20 MG TAB PO ×2 (08:26→20:30)
[2019-02-07] MEDS: Pantoprazole 40 MG TABCR PO (08:26)
[2019-02-07] MEDS: Multivitamin w/Minerals TAB 1 TAB PO (08:26)
[2019-02-07] MEDS: Cyanocobalamin 500 MCG TAB PO (08:26)
[2019-02-07] MEDS: Enoxaparin 40 MG/0.4 ML SYR SC (08:27)
[2019-02-07] MEDS: Docusate Sodium 100 MG CAP PO ×3 (08:27→20:30)
[2019-02-07] MEDS: oxyCODONE-CR 10 MG TABCR PO ×2 (11:45→23:20)
--- NOTE | 2019-02-07 12:00 | PTTR_ITS ---
Date of service: 02/07/19 Time of Service: 11:55 PT Notes Inpatient Physical Therapy Treatment Note [facility] Date: 02/07/19 PRECAUTIONS: Fall, WBAT on R SUBJECTIVE: [place] is pleasant and agreeable to participating in PT. OBJECTIVE: PAIN: Patient complained of pain with AAROM into knee flexion BED MOBILITY/TRANSFERS Sit-stand: S Stand-sit: S GAIT Assistive Device: FWW Weight bearing: WBAT R Assist: SBA Distance: 200' in a.m.; 150' in p.m. Deviation: Cueing to increase stride length, cueing for FWW mechanics, knee immobilizer in place, no knee immobilizer in p.m. THEREX: Patient completed a lower extremity strengthening and stabilization program, as per flow sheet. Patient completed SLR x10 with assist (in a.m.), and actively (in p.m.) without Tovar wrap in place. Patient's right knee AAROM is -5-95 degrees with moderate overpressure into knee flexion, with pain at end range. Patient ends with cryocuff to right knee. STAIRS: Up/down 3x4 and 2x6 using B rails and a step-to pattern with supervision and knee immobilizer in place. ASSESSMENT: Patient tolerated session well with minimal complaints of R knee pain with AAROM into knee flexion. Patient was able to tolerate a progression in gait distance with FWW support and SBA, requiring cueing for increased stride length as well as for FWW mechanics for increased fluidity with gait. Patient would benefit from continued gait and transfer training as well as strengthening for improved mobility and improved ability to perform daily functional tasks at a more independent level. PLAN: Continue with PTs POC TREATMENT CODE/TIME: Session 1: 30 minutes; [id number], [id number] Session 2: 30 minutes; 00402, [id number]
--- NOTE | 2019-02-07 15:03 | CMPROGNOTE_ITS ---
- If Service Date Differs Date of service: 02/07/19 Time of Service: 15:02 Care Management Progress Note S/O: Ally is sitting up in her chair when this headline writer visits today. She is pleasant and receptive to discussion. Ally continues to work with physical therapy and feels as though she is doing better with each day. She reports that her SO Ramos will be in to visit with her today. A: 73 y/o female admitted 02/05/19 for Post Op R TKR P: Ally will return home with outpatient PT through [facility]. She will F/U with Dr. Monge and plan of care as prescribed. Ally's SO Ramos to transport when ready.
--- NOTE | 2019-02-07 16:23 | W.PM.PROGNOT ---
Date of Service Date of service: 02/07/19 Time of Service: 16:23 Assessment and Plan (1) Status post total knee replacement, right: Current visit: Yes Status: Acute Assessment: She is doing very well following her right total knee replacement 2 days ago. She is close to achieving all acute care goals she will be ready to go home by tomorrow, barring any complications. Plan: Continue to mobilize with physical therapy. Probable discharge home tomorrow if only taking p.o. pain meds and is independent with activities. Subjective Interval history since last seen: She feels great. She is very happy with her progress. She wants to know if she can go home on Tuesday. I tell her she is experiencing little pain and is independent with her transfers and ambulation, she could go home tomorrow. She seems very excited about this prospect. Exam Narrative Exam Narrative: Afebrile vital signs stable. Hemoglobin 11.1 g today. Range of motion of her right knee is 5 to 95 degrees of flexion. She requires very little assist to transfer. She ambulates independently with a walker. Her incision is benign. She has had some minor bleeding from the inferior edge of the incision. No swelling in her right ankle. Neurovascular exam right foot is normal. Objective Objective Clinical Data: Abnormal lab results 02/07/19 Range/Units 07:05 RBC 3.77 L (4.00-5.20) m/cumm Hgb 11.1 L (12.0-15.5) g/dL Hct 35.1 L (36.0-46.0) % MCHC 31.6 L (32.0-36.0) g/dL Vital Signs Temperature 36.4 C L 02/07/19 11:53 Temperature Source Tympanic 02/07/19 11:53 Pulse 83 02/07/19 11:53 Pulse Rhythm Regular 02/07/19 16:15 Respiratory Rate 18 02/07/19 11:53 Respiratory Effort Non-Labored 02/07/19 16:15 Respiratory Depth Normal 02/07/19 16:15 Respiratory Pattern Normal 02/07/19 16:15 Blood Pressure 149/83 H 02/07/19 11:53 Pulse Oximetry 95 02/07/19 11:53 Respiratory End-tidal CO2 42 02/05/19 10:45 Oxygen Delivery Method Room Air 02/07/19 11:53 Oxygen Flow Rate 0 02/07/19 11:53 Pain Level 6 02/07/19 14:00 Comment 02/05/19 22:19 Intake & Output 02/06/19 02/07/19 02/07/19 23:59 11:59 23:59 Intake Total 1033 / 2086 400 / 400 Output Total 300 / 400 700 / 700 Balance 733 / 1686 -300 / -300 Intake: IV 553 / 1306 Oral 480 / 780 400 / 400 Output: Urine 300 / 400 700 / 700 Other: Urine Color Yellow Yellow Urine Appearance Clear Clear Urine Odor None Normal Voiding Methods Bedside Commode Bedside Commode Laboratory Results WBC 9.14 k/cumm (4.4-10.8) 02/07/19 07:05 RBC 3.77 m/cumm (4.00-5.20) L 02/07/19 07:05 Hgb 11.1 g/dL (12.0-15.5) L 02/07/19 07:05 Hct 35.1 % (36.0-46.0) L 02/07/19 07:05 MCV 93.1 fL (80-95) 02/07/19 07:05 MCH 29.4 pg (27.0-33.0) 02/07/19 07:05 MCHC 31.6 g/dL (32.0-36.0) L 02/07/19 07:05 RDW 13.4 % (11.7-14.6) 02/07/19 07:05 Plt Count 197 x1000/uL (130-400) 02/07/19 07:05 MPV 10.1 fL (8.0-11.0) 02/07/19 07:05
[2019-02-07] MEDS: Acetaminophen 325 MG TAB 650 MG PO (20:30)
[2019-02-07] MEDS: Labetalol 100 MG TAB PO (23:20)
[2019-02-08] MEDS: HYDROcodone 5/Acetaminophen 325 TAB PO ×2 (05:26→11:41)
[2019-02-08 05:29] VITALS: BP 166/82; PULSE 81; RESP 18; O2SAT 94
[2019-02-08] MEDS: Docusate Sodium 100 MG CAP PO (08:23)
[2019-02-08] MEDS: Lisinopril 20 MG TAB PO (08:23)
[2019-02-08] MEDS: Multivitamin w/Minerals TAB 1 TAB PO (08:23)
[2019-02-08] MEDS: amLODIPine 10 MG TAB PO (08:23)
[2019-02-08] MEDS: Enoxaparin 40 MG/0.4 ML SYR SC (08:23)
[2019-02-08] MEDS: Pantoprazole 40 MG TABCR PO (08:23)
[2019-02-08] MEDS: Cyanocobalamin 500 MCG TAB PO (08:23)
[2019-02-08 08:30] VITALS: BP 133/72; PULSE 91; RESP 14; TEMP 37; O2SAT 95
--- NOTE | 2019-02-08 11:06 | PT.INTREAT ---
Date of service: 02/08/19 Time of Service: 11:06 PT Notes Inpatient Physical Therapy Treatment Note [facility] Date: 02/08/19 PRECAUTIONS: Fall, WBAT on R SUBJECTIVE: Ally states that she is going home today. She feels that she will be safe and feels good about going home today. OBJECTIVE: PAIN: Patient complained of pain with AAROM into knee flexion BED MOBILITY/TRANSFERS Supine-sit: I Sit-supine: I Sit-stand: I Stand-sit: I GAIT Assistive Device: FWW Weight bearing: WBAT R Assist: S Distance: 200' Deviation: Cueing to increase stride length, cueing for FWW mechanics, no knee immobilizer in p.m. THEREX: Patient completed a lower extremity strengthening and stabilization program, as per flow sheet. Patient completed active SLR x10. Patient's right knee AAROM is -3-79 degrees with moderate overpressure into knee flexion, with pain at end range. Patient ends with cryocuff to right knee. STAIRS: Up/down 3x4 and 2x6 using 1 rail/SPC and a step-to pattern with supervision ASSESSMENT: Patient tolerated session well with minimal complaints of R knee pain with AAROM into knee flexion. Patient continues to require cueing for increased stride length as well as for FWW mechanics for increased fluidity with gait. Patient would benefit from continued gait training as well as strengthening for improved mobility. PLAN: As per primary PT TREATMENT CODE/TIME: Session 1: 30 minutes; [id number], [id number]
[2019-02-08 11:30] VITALS: BP 169/91; PULSE 92; RESP 18; TEMP 36.1; O2SAT 96
--- NOTE | 2019-02-08 11:42 | DSE_ITS ---
Date of service: 02/08/19 Time of Service: 11:41 DS: Diagnosis Discharge Diagnosis (1) Status post total knee replacement, right: Status: Acute Discharge Plan Disposition Patient Disposition: HOME Condition: Good Discharge Details Reason For Visit: POST-OP R TKR Admit Date/Time: 02/05/19 05:53 Admit Provider: Romie Monge Attending Provider: Romie Monge Primary Care Provider: Patrick Tucker Hospital Course Hospital Course: Patient was taken to the operating room on the day of admission, 02/05/2019, where she underwent a right total knee arthroplasty without complications. Postoperatively she was mobilized per protocol with physical therapy. She was out of bed taking steps in the room on the afternoon of her surgery. She remained afebrile throughout her hospital course. Hemoglobin stabilized at 11.1 g at 48 hours postop. By 02/08/2019 she was fully independent with transfers and ambulation. She was flexing her knee beyond 95 degrees. Her wound was benign. It was felt that she had achieved all her acute care goals and was ready for discharge home. Home Meds and New Rx's Prescriptions: New hydromorphone [Dilaudid] 2 mg tablet 2 mg PO Q6H PRN (Reason: pain) Qty: 20 RF: 0 Continued multivitamin tablet 1 tab PO DAILY RF: 0 labetalol 200 mg tablet 100 mg PO HS RF: 0 lisinopril 20 mg tablet 20 mg PO BID RF: 0 cyanocobalamin (vitamin B-12) [Vitamin B-12] 500 mcg tablet 500 mcg PO DAILY RF: 0 amlodipine [Norvasc] 10 mg tablet 10 mg PO DAILY RF: 0 coenzyme Q10 [CoQ-10] 30 mg capsule 30 mg PO DAILY RF: 0 dapagliflozin [Farxiga] 10 mg tablet 10 mg PO DAILY RF: 0 cholecalciferol (vitamin D3) 2,000 unit tablet,chewable 2,000 unit PO DAILY RF: 0 Discharge Instructions Additional Instructions: Elevate right leg when sitting. Use long-leg stocking on the right during daytime only for 2 weeks. Take 1 baby aspirin twice a day (81 mg) for 30 days postop to prevent blood clots in legs. Outpatient physical therapy with [facility] for rehab right total knee replacement. Use walker or cane as long as you limp. Follow-up with Dr. Monge in 2 weeks. May shower and get incision wet tomorrow. Cover incision with light gauze dressing. Apply Cryo/Cuff to right knee 4 times a day for an hour each time. Stand Alone Forms: Nursing Discharge Form Referrals: Romie Monge MD [ [facility]] - (f/u in 2 weeks.) Activity:: Activity as Tolerated Equipment/Supplies:: Walker Diet:: As Tolerated Discharge Orders Discharge Orders: Discharge Order (Routine); Ordered 02/08/19 Ordered By: Romie Monge DS: Data Vitals/I&O Vitals and I&O: Vital Signs Temperature 36.1 C L 02/08/19 11:30 Temperature Source Tympanic 02/08/19 11:30 Pulse 92 H 02/08/19 11:30 Pulse Rhythm Regular 02/08/19 09:25 Respiratory Rate 18 02/08/19 11:30 Respiratory Effort Non-Labored 02/08/19 09:25 Respiratory Depth Normal 02/08/19 09:25 Respiratory Pattern Normal 02/08/19 09:25 Blood Pressure 169/91 H 02/08/19 11:30 Pulse Oximetry 96 02/08/19 11:30 Respiratory End-tidal CO2 42 02/05/19 10:45 Oxygen Delivery Method Room Air 02/08/19 11:30 Oxygen Flow Rate 0 02/08/19 11:30 Pain Level 6 02/08/19 11:30 Comment 02/05/19 22:19 Intake & Output 02/07/19 02/07/19 02/08/19 11:59 23:59 11:59 Intake Total 400 / 1190 790 / 1190 810 / 810 Output Total 700 / 1600 900 / 1600 500 / 500 Balance -300 / -410 -110 / -410 310 / 310 Intake: Oral 400 / 1190 790 / 1190 810 / 810 Output: Urine 700 / 1600 900 / 1600 500 / 500 Other: Urine Color Yellow Yellow Straw Urine Appearance Clear Clear Clear Urine Odor Normal Normal Strong Voiding Methods Bedside Commode Toilet Bedside Commode [facility] Social History Smoking/Tobacco Use Status: Never Alcohol Intake: never Drug use: Never Additional Social history:
--- NOTE | 2019-02-08 14:15 | NUR.NOTE ---
Nursing Note: Pt has aspirin on allergy list, she states it makes my stomach bleed. last time i only took 2 doses and i had bright blood from my rectum. MD's discharge instructions state to take 2 baby aspirin per day for DVT prophylaxis. Aspirin not on med list, under new medications. This scribed called Dr. Monge's office to clarify if Pt should take aspirin or not, MD not available, hospital secretary stated he could not be reached for clarification on instructions. Left message for MD to contact patient directly as she is unsure if aspirin is safe to take. instructed Pt to call Dr. Adhikari office in the morning if she hadn't heard from .
--- NOTE | 2019-02-08 14:16 | PDOC.CMDIS ---
- If Service Date Differs Date of service: 02/08/19 Time of Service: 14:16 LACE Index Scoring Tool - Questions: Length of Stay (in days): 3 Acuity (Admit via E.D.?): No Comorbidities: Cerebrovascular Disease, Diabetes w/o Complication E.D. Visits: 0 - Answers: Total Score: 5 Risk of Readmission: Low Risk Care Management Discharge Reason for Hospitalization: Arthritis of (R) Knee Discharge Plan: Ally will return home today with outpatient PT through [facility]. She will F/U with Dr. Monge and plan of care as prescribed. Ally's SO Ramos to transport home when ready. Patient/Family Education Needs: Review DC instructions, any limitations, and discuss 'Ask Me Three' Services Needed at Discharge: Physical Therapy (Outpatient PT through [facility].)
--- NOTE | 2019-02-08 18:13 | INDS_ITS ---
Date of service: 02/08/19 PT Notes Inpatient Physical Therapy Discharge Summary Dates: 02/08/2019 Dates of Service: 02/05/2019 through 02/08/2019 This is a clinical summary of skilled PT services provided on the dates listed above. No charge was made in the completion of this documentation. Referring Doctor: Romie Monge MD PT Orders: PT CONSULT: Mobilize postop right total knee. Get OOB ambulating in room this afternoon. WBAT to right leg Precautions: Fall. Standard. WBAT to right LE using FWW. 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 PMHX: Medical History Arthritis of knee, right (Acute) History of depression (Chronic) CVA (cerebral vascular accident) (Chronic) Diabetes mellitus (Chronic) GI bleed (Chronic) Gout (Chronic) Hiatal hernia (Chronic) Hypertension (Chronic) TIM (obstructive sleep apnea) (Chronic) Osteoarthritis (Chronic) Surgical History History of appendectomy (Chronic) History of arthroscopic knee surgery (Chronic) History of colonoscopy (Chronic) History of hysterectomy (Chronic) Social History/Home Situation: Patient lives with significant other in a mobile home with 2 steps to enter leading to a porch rails on both sides. She was independent with indoor and outdoor ambulation using ambulatory device until 2 months ago when her right knee started to significantly limit her due to pain. Patient started to use a small-based quad cane for fear of falling due to her worsening pain symptoms. Current Functional Limitations: Need for physical assistance and assistive device in doing all bed mobility, transfers, and ambulation task performance Equipment Owned/DME: [facility], FWW Subjective: NT Objective: General Observation: NT Mental Status:NT Pain: Reports NT ROM: Right Upper Extremity: Shoulder Flexion WFL. Shoulder abduction WFL. Elbow flexion WFL. Wrist flexion WFL. Functional opening and closing of hand WFL. Left Upper Extremity: Shoulder Flexion WFL. Shoulder abduction WFL. Elbow flexion WFL. Wrist flexion WFL. Functional opening and closing of hand WFL. Right Lower Extremity: Hip flexion 0-30 in standing, unable in supine. Hip abduction 0-20. Knee flexion unable at this time even without immobilizer in supine; 0-10 degrees passively. Ankle dorsiflexion WFL. Ankle plantarflexion WFL. Left Lower Extremity: Hip flexion WFL. Hip abduction WFL. Knee flexion WFL. Ankle dorsiflexion WFL. Ankle plantarflexion WFL. Strength: Right Upper Extremity: Shoulder flexors 5/5. Shoulder abductors 5/5. Elbow flexors 5/5. Elbow extensors 5/5. Product Inspection Supervisor strong. Left Upper Extremity: Shoulder flexors 5/5. Shoulder abductors 5/5. Elbow flexors 5/5. Elbow extensors 5/5. Product Inspection Supervisor strong. Right Lower Extremity: Hip flexors 3-/5. Hip abductors 3-/5. Knee flexors 3-/5. Knee extensors 3-/5. Ankle dorsiflexors 5/5. Ankle plantarflexors 5/5. Left Lower Extremity:Hip flexors 5/5. Hip abductors 5/5. Knee flexors 5/5. Knee extensors 5/5. Ankle dorsiflexors 5/5. Ankle plantarflexors 5/5. Sensation: Intact as to pain and pressure to B LE Bed Mobility/Transfers: Rolling I Supine to sit I Sit to supine I Sit to stand I Stand to sit I Bed to chair I Chair to bed I Gait: Patient able to tolerate level surface ambulation of 200 feet with supervision with WBAT on right using FWW. Please refer to PT notes on 02/08/2019. Balance: Static Sitting: Good Dynamic Sitting: Good Static Standing: Fair Dynamic Standing: Fair Assessment: patient is a 73 year old female referred to physical therapy services with the diagnosis of end-stage osteoarthritis status post right total knee arthroplasty, mobility decline, and generalized weakness. Patient presents with clinical signs and symptoms consistent with current/admitting diagnoses that have resulted to mobility limitations, gait instability, generalized weakness, and impairment of motor control as demonstrated by the following impairment level findings: 1. Decreased strength to our LE major muscle groups 2. Impaired sitting/standing balance 3. Impaired activity tolerance 4. Limitation of joint range of motion in right hip and knee joints Impairments are contributing to the following functional limitations: 1. Dependent bed mobility skills 2. Increased dependence with transfers 3. Inability to safely ambulate without assistive device and physical assistance 4. Increase completion time for mobility ADL performance 5. Increased fall risk 6. Inability to negotiate steps alone safely Goals: Goals X1 week 1. Supine-Sit independent MET 2. Sit-Supine independent MET 3. Sit-Stand independent MET 4. Stand-Sit independent MET 5. Bed-Chair independent MET 6. Chair-Bed independent MET 7. Independent gait on level surface with use of least restrictive device for at least 200 feet without report of pain nor dyspnea NOT MET 8. Independent stair negotiation while holding onto bilateral rails for at least 5 steps without report of pain nor dyspnea NOT MET 9. Independent with home exercise program NOT MET 10. Good static and dynamic standing balance/tolerance NOT MET DISCHARGE RECOMMENDATIONS: Patient will benefit from home health physical therapy services in order to assess for home safety, maximize mobility gains at discharge destination, and establish/implement a functional maintenance program for strengthening and fall reduction. No equipment needs at this time. Encourage use of proper footwear once swelling resolves in order to maximize weight bearing and shock absorption through B LE. TREATMENT CODE/TIME: SONNY Thank you for this referral. Bhakti Ferreira, PT, DPT, CLT [facility]
== END 2019-02-08 13:02 | disposition home or self-care (01) | DRG 470 ==
LOC: PDS 07:59 → MS 10:19
PROVIDERS: Admitting Provider Orthopaedic Surgery; PCP Specialist/Technologist Athletic Trainer; Visit Provider Orthopaedic Surgery
PROC: 0SRC0J9 Replacement of Right Knee Joint with Synthetic Substitute, Cemented, Open Approach (ICD-10-PCS; CPT 27447; principal; 2019-02-05 07:30)
DX: M17.11 Unilateral primary osteoarthritis, right knee (principal); M21.161 Varus deformity, not elsewhere classified, right knee; Z96.651 Presence of right artificial knee joint
CPT/HCPCS: 27447; 36415; 76942; 85027; 97110; 97162; 97530; J1650; NC; 73560; J0690; J1885; J2250; J2405; J3010; L1830

== ENCOUNTER → 2019-02-22 10:49 | Outpatient (BNVA) | payer MEDICARE, OTHER, SELFPAY | PROVIDERS: PCP Specialist/Technologist Athletic Trainer; Referring Provider Specialist/Technologist Athletic Trainer; Visit Provider Orthopaedic Surgery | DX: Z47.1 Aftercare following joint replacement surgery (principal); Z96.651 Presence of right artificial knee joint ==

== ENCOUNTER → 2019-03-22 10:19 | Outpatient (BNVA) | payer MEDICARE, OTHER, SELFPAY | PROVIDERS: PCP Specialist/Technologist Athletic Trainer; Referring Provider Specialist/Technologist Athletic Trainer; Visit Provider Orthopaedic Surgery | DX: Z47.1 Aftercare following joint replacement surgery (principal); Z96.651 Presence of right artificial knee joint; R20.8 Other disturbances of skin sensation; I10 Essential (primary) hypertension; E11.9 Type 2 diabetes mellitus without complications ==

== ENCOUNTER 2019-04-27 10:13 | Outpatient (CLI) | payer MEDICARE, OTHER, SELFPAY ==
--- NOTE | 2019-04-27 10:50 | DI.RAD_ITS ---
SYMPTOM/DIAGNOSIS: COUGH R05 PA AND LATERAL CHEST: There are no prior comparison exams. The heart size is normal. The aorta is mildly tortuous. The lungs appear clear. No infiltrate, effusion or pulmonary edema is seen. IMPRESSION: No acute abnormality.
== END 2019-04-27 10:33 ==
PROVIDERS: PCP Physician Assistant Medical; Visit Provider Physician Assistant Medical
DX: R05 Cough (principal)
CPT/HCPCS: 71046

== ENCOUNTER → 2019-05-03 09:13 | Outpatient (BNVA) | payer MEDICARE, OTHER, SELFPAY | PROVIDERS: PCP Physician Assistant Medical; Referring Provider Specialist/Technologist Athletic Trainer; Visit Provider Orthopaedic Surgery | DX: Z47.1 Aftercare following joint replacement surgery (principal); Z96.651 Presence of right artificial knee joint; E11.9 Type 2 diabetes mellitus without complications; I10 Essential (primary) hypertension ==

== ENCOUNTER 2019-06-18 12:00 | Emergency (ER) | payer MEDICARE, OTHER, SELFPAY ==
[2019-06-18] VITALS (39 sets, daily range): BP systolic 147–193; BP diastolic 69–81; PULSE 64–94; RESP 10–33; TEMP 37.1; O2SAT 94–99
--- NOTE | 2019-06-18 12:25 | ED.GENADUL_ITS ---
Discharge Plan Disposition Patient Disposition: HOME Condition: Stable Discharge Details Chief Complaint: Chest Pain Clinical Impression: Heart palpitations, Chest pain Primary Care Provider: Arron Caceres ED Provider: Ghada Haley Home Meds and New Rx's Prescriptions: Continued gabapentin 300 mg capsule 300 mg PO BID Qty: 60 RF: 2 multivitamin tablet 1 tab PO DAILY RF: 0 labetalol 200 mg tablet 100 mg PO BID RF: 0 lisinopril 20 mg tablet 20 mg PO BID RF: 0 cyanocobalamin (vitamin B-12) [Vitamin B-12] 500 mcg tablet 500 mcg PO DAILY RF: 0 amlodipine [Norvasc] 10 mg tablet 10 mg PO DAILY RF: 0 coenzyme Q10 [CoQ-10] 30 mg capsule 30 mg PO DAILY RF: 0 dapagliflozin [Farxiga] 10 mg tablet 10 mg PO DAILY RF: 0 cholecalciferol (vitamin D3) 2,000 unit tablet,chewable 2,000 unit PO DAILY RF: 0 ondansetron HCl [Zofran] 4 mg tablet 4 mg PO QID PRNRF: 0 oxycodone 5 mg tablet 5 mg PO Q8H MDD 15 mg PRN (Reason: pain) Qty: 20 RF: 0 albuterol sulfate 90 mcg/actuation Hfa Aerosol Inhaler 2 puff INHALATION Q6H PRNRF: 0 albuterol sulfate [Ventolin HFA] 90 mcg/actuation Hfa Aerosol Inhaler 2 puff INHALATION Q6H PRNRF: 0 Discharge Instructions Instructions: Chest Pain (ED), Palpitations (ED) Additional Instructions: Please return immediately to the emergency department if you develop any new or worsening symptoms or if you become otherwise concerned. It is extremely important that you call as soon as possible to make an appointment to be seen in follow-up for this visit by her primary care doctor. It is also extremely important that you undergo a stress test within 72 hours of your emergency department visit as we discussed. 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 On exam patient is well and nontoxic appearing. Systolic murmur noted. Patient denying current palpitations, and sinus rhythm without ectopy on the monitor. Lungs are clear to auscultation. Mild posterior calf tenderness to palpation on the right that patient reports is unchanged since having her knee surgery this past year. Concern for ACS versus PE versus metabolic/lyte disturbance versus arrhythmia versus other. Plan for EKG, chest x-ray, screening labs, telemetry. Patient reporting that she has no current chest pain but an uneasy feeling in her chest, will hold nitroglycerin for now. Patient reassessed, denying any symptoms at this time. Initial EKG and troponin negative, plan for repeat. D-dimer elevated, plan for CTA chest. CTA chest negative. Patient continues to report that she has no symptoms. Patient with low heart score, plan for outpatient follow-up, Holter monitor, stress test. Patient requesting discharged home at this time. I had a lengthy discussion with the patient regarding return to emergency department precautions, importance of outpatient follow-up, and home care. Patient jaison lized understanding of the plan and was amenable. All questions were answered. Patient was discharged home with clear plan for outpatient follow-up. Outpatient stress test ordered. Medical Records Medical records reviewed: Yes I reviewed the patient's medical records. Imaging Data Radiologic Study: Attestation: I personally reviewed and interpreted this imaging study as follows: Radiologist's impression: PA AND LATERAL CHEST: The lungs are well expanded and free of infiltrate. There is no pleural effusion. The heart is not enlarged. There is tortuosity of the thoracic aorta. As visualized the hilar structures, mediastinum and tracheal air column appear intact. SUMMARY: No evidence of acute cardiopulmonary disease. PE CT: CT angiography was performed with multi slice acquisition and multi planar and 3D reconstruction. The study was carried out according to the usual protocol with an intravenous injection of 74 cc of Omnipaque 350. There is no evidence of PE. There is no infiltrate, or mass or pleural effusion. The heart is somewhat enlarged. There is no pericardial effusion. There is no aortic aneurysm. There is no evidence of hilar or mediastinal adenopathy. SUMMARY: There is no evidence of pulmonary embolic disease. No pulmonary infiltrate or mass is defined and there is no evidence of congestive failure or pneumonia. Lab Data Lab results reviewed: Yes I reviewed the patient's lab results. Labs: Laboratory Tests Range/Units 06/18/19 06/18/19 06/18/19 12:30 12:30 12:30 WBC (4.4-10.8) k/cumm 7.61 RBC (4.00-5.20) m/cumm 5.08 Hgb (12.0-15.5) g/dL 14.3 Hct (36.0-46.0) % 45.5 MCV (80-95) fL 89.6 MCH (27.0-33.0) pg 28.1 MCHC (32.0-36.0) g/dL 31.4 L RDW (11.7-14.6) % 15.8 H Plt Count (130-400) x1000/uL 266 MPV (8.0-11.0) fL 10.2 Immature Gran % 0.1 Neutrophils % 63.7 Lymphocytes % 26.4 Monocytes % 6.4 Eosinophils % 2.6 Basophils % 0.8 Absolute Neutrophils (1.2-6.7) k/cumm 4.84 Absolute Lymphocytes (1.2-3.4) k/cumm 2.01 Absolute Monocytes (0.11-0.7) k/cumm 0.49 Absolute Eosinophils (0.0-0.7) k/cumm 0.20 Absolute Basophils (0.0-0.2) k/cumm 0.06 D-Dimer (<500) ng/mlFEU 1591 H Sodium (136-145) mmol/L 143 Potassium (3.5-5.1) mmol/L 3.8 Chloride (98-107) mmol/L 104 Carbon Dioxide (21.0-32.0) mmol/L 27.1 Anion Gap (3-11) mmol/L 11.9 H BUN (7-18) mg/dL 14 Creatinine (0.55-1.02) mg/dL 0.77 Estimated GFR/1.73 m2 (mL/min/1.73m2) >= 60.00 Glucose (70-100) mg/dL 123 H Calcium (8.5-10.1) mg/dL 9.0 Magnesium (1.8-2.4) mg/dL 2.0 Total Bilirubin (0.2-1.0) mg/dL 0.5 AST (15-37) U/L 18 ALT (14-59) U/L 26 Alkaline Phosphatase (46-116) U/L 118 H Troponin I (0.00-0.06) ng/mL < 0.05 NT-Pro-B Natriuret Pep ( - 299) pg/mL 284 Total Protein (6.4-8.2) g/dL 7.6 Albumin (3.4-5.0) g/dL 4.0 TSH (0.36-3.74) uIU/mL Range/Units 06/18/19 06/18/19 12:30 15:30 WBC (4.4-10.8) k/cumm RBC (4.00-5.20) m/cumm Hgb (12.0-15.5) g/dL Hct (36.0-46.0) % MCV (80-95) fL MCH (27.0-33.0) pg MCHC (32.0-36.0) g/dL RDW (11.7-14.6) % Plt Count (130-400) x1000/uL MPV (8.0-11.0) fL Immature Gran % Neutrophils % Lymphocytes % Monocytes % Eosinophils % Basophils % Absolute Neutrophils (1.2-6.7) k/cumm Absolute Lymphocytes (1.2-3.4) k/cumm Absolute Monocytes (0.11-0.7) k/cumm Absolute Eosinophils (0.0-0.7) k/cumm Absolute Basophils (0.0-0.2) k/cumm D-Dimer (<500) ng/mlFEU Sodium (136-145) mmol/L Potassium (3.5-5.1) mmol/L Chloride (98-107) mmol/L Carbon Dioxide (21.0-32.0) mmol/L Anion Gap (3-11) mmol/L BUN (7-18) mg/dL Creatinine (0.55-1.02) mg/dL Estimated GFR/1.73 m2 (mL/min/1.73m2) Glucose (70-100) mg/dL Calcium (8.5-10.1) mg/dL Magnesium (1.8-2.4) mg/dL Total Bilirubin (0.2-1.0) mg/dL AST (15-37) U/L ALT (14-59) U/L Alkaline Phosphatase (46-116) U/L Troponin I (0.00-0.06) ng/mL < 0.05 NT-Pro-B Natriuret Pep ( - 299) pg/mL Total Protein (6.4-8.2) g/dL Albumin (3.4-5.0) g/dL TSH (0.36-3.74) uIU/mL 1.37 ECG Data Attestation: I personally reviewed and interpreted this ECG (s) as follows: Interpretation: EKG shows sinus rhythm at 74, normal axis, poor R wave progression, no acute ischemic changes, nondiagnostic EKG EKG #2 shows sinus rhythm at 85, normal axis, poor R wave progression, no acute ischemic changes, nondiagnostic EKG HPI General Mode of arrival: ambulatory . Date/Time Provider Initiated Documentation: 06/18/19 12:25 . Limitations to Documentation: no limitations . Information obtained by: patient, RN notes reviewed and old records reviewed . HPI Narrative: Ally Vega is a 74-year-old woman with a history of CVA with residual right-sided weakness, hypertension, sleep apnea, diabetes, GI bleed presenting to the emergency department with palpitations and chest pain. Patient reports that yesterday she noticed that her heart seemed to be beating funny. Patient reports that this has happened occasionally in the past, although symptoms resolve after less than 1/2-hour. Patient reports that palpitations occurred throughout the day yesterday intermittently. Patient also reports that she developed left-sided achiness in her chest that radiates occasionally into the left arm. Patient reports that the symptom is not painful, but is a mild achiness. Patient reports that she had a knee replacement January 2019 and has continued pain in that knee that is chronic and unchanged, denies any other pain. Patient denies fevers, cough, shortness of breath, vomiting, diarrhea, and new weakness/numbness. She does note that she has felt mildly lightheaded since onset of her symptoms yesterday, although her activities have not been limited by this or her other symptoms. No recent illness. Has been eating and drinking as usual. Related Data Home Medications Medication Instructions Recorded Confirmed amlodipine 10 mg tablet 10 mg PO DAILY 07/11/18 06/18/19 cholecalciferol (vitamin D3) 2,000 2,000 unit PO DAILY 07/11/18 06/18/19 unit chewable tablet coenzyme Q10 30 mg capsule 30 mg PO DAILY 07/11/18 06/18/19 cyanocobalamin (vitamin B-12) 500 500 mcg PO DAILY 07/11/18 06/18/19 mcg tablet dapagliflozin 10 mg tablet 10 mg PO DAILY 07/11/18 06/18/19 labetalol 200 mg tablet 100 mg PO BID 07/11/18 06/18/19 lisinopril 20 mg tablet 20 mg PO BID tab 07/11/18 06/18/19 multivitamin 1 tab PO DAILY 07/11/18 05/03/19 ondansetron HCl 4 mg tablet 4 mg PO QID PRN 02/09/19 05/03/19 oxycodone 5 mg tablet 5 mg PO Q8H PRN #20 tab MDD 15 mg 02/27/19 05/03/19 gabapentin 300 mg capsule 300 mg PO BID #60 cap 05/03/19 06/18/19 albuterol sulfate 2 puff INHALATION Q6H PRN 06/18/19 06/18/19 albuterol sulfate [Ventolin HFA] 2 puff INHALATION Q6H PRN 06/18/19 06/18/19 Previous Rx's Medication Instructions Recorded oxycodone 5 mg tablet 5 mg PO Q8H PRN #20 tab MDD 15 mg 02/27/19 gabapentin 300 mg capsule 300 mg PO BID #60 cap 05/03/19 Allergies Allergy/AdvReac Type Severity Reaction Status Date / Time aspirin Allergy Severe GI Bleed Verified 06/18/19 12:27 ibuprofen [From Motrin] Allergy Severe GI Bleed Verified 06/18/19 12:27 Tetracyclines Allergy Severe Makes my Verified 06/18/19 12:27 skin peel and throat close up acetaminophen [From Percocet] Allergy Intermediate Pt states Verified 06/18/19 12:27 she can take acetaminophen buspirone Allergy Unknown Verified 06/18/19 12:27 codeine Allergy Unknown Verified 06/18/19 12:27 pentazocine [From Talwin] Allergy Unknown Verified 06/18/19 12:27 sulfamethoxazole Allergy Unknown Verified 06/18/19 12:27 [From Bactrim] trimethoprim [From Bactrim] Allergy Unknown Verified 06/18/19 12:27 ciprofloxacin [From Cipro] AdvReac Severe made my Verified 06/18/19 12:27 stomach bleed duloxetine [From Cymbalta] AdvReac Severe made me Verified 06/18/19 12:27 sick and suicidal gabapentin AdvReac Severe Makes me Verified 06/18/19 12:27 want to commit suicide prednisone AdvReac Severe Raises BP Verified 06/18/19 12:27 and blood sugar per Pt tramadol AdvReac Severe major GI Verified 06/18/19 12:27 upset oxycodone [From Percocet] AdvReac Unknown Verified 06/18/19 12:27 propoxyphene AdvReac Unknown Verified 06/18/19 12:27 [From Darvocet-N] General Stated Complaint: Chest Pain RADHA: 2 Review of Systems Review of Systems Narrative: Constitutional: denies fevers Eyes: denies eye pain ENT: denies facial pain, dental pain, sore throat Cardiovascular: denies edema, reports chest pain, palpitations Respiratory: denies SOB, cough GI: denies abdominal pain, vomiting, diarrhea : denies flank pain MSK: denies back pain, neck pain, myalgias, chronic knee pain as per HPI Skin: denies rash Neuro: denies headaches, numbness, weakness PFS Medical History Arthritis of knee, right (Resolved) CVA (cerebral vascular accident) (Chronic) Diabetes mellitus (Chronic) checks am blood sugars typically in 150-180 range last a1c 7.1 GI bleed (Chronic) Gout (Chronic) Hiatal hernia (Chronic) History of depression (Chronic) meds in past presently on no rx for depression Hypertension (Chronic) TIM (obstructive sleep apnea) (Chronic) has used cpap in past presently not using Osteoarthritis (Chronic) Surgical History (Updated 05/03/19 @ 10:21 by KACI Mcknight) History of appendectomy (Chronic) History of arthroscopic knee surgery (Chronic) History of colonoscopy (Chronic) History of hysterectomy (Chronic) Social History Smoking/Tobacco Use Status: Never Alcohol Intake: never Drug use: Never Additional Social history: Exam Narrative Exam Narrative: Constitutional: well and [id number], pleasant, conversing normally HENT: head atraumatic/normocephalic/normal inspection, mucous membranes moist Eyes: conjunctiva normal, sclera normal, pupils 3mm b/l Neck: no stridor, normal ROM, trachea midline Chest: normal inspection Resp: normal work of breathing, LCTAB Cardio: normal rate, normal rhythm, 3 out of 6 systolic murmur GI: abdomen soft, non-tender, non-distended Back: normal inspection, no rash Skin: warm, dry, normal color, no rash Neuro: alert, not altered, grossly non-focal, normal tone Ext: no edema, no posterior calf tenderness to palpation Psych: normal mood, normal affect, normal behavior Course Vital Signs Vital signs: Vital Signs Temperature 37.1 C 06/18/19 12:09 Pulse 73 06/18/19 12:09 Respiratory Rate 18 06/18/19 12:09 Blood Pressure 167/71 H 06/18/19 12:09 Pulse Oximetry 98 06/18/19 12:09 Temperature 37.1 C 06/18/19 12:09 Temperature Source Skin 06/18/19 12:09 Pulse 73 06/18/19 12:09 Respiratory Rate 18 06/18/19 12:09 Blood Pressure 167/71 H 06/18/19 12:09 Pulse Oximetry 98 06/18/19 12:09 Oxygen Delivery Method Room Air 06/18/19 12:09 Oxygen Flow Rate 0 06/18/19 12:09 Pain Level 5 06/18/19 12:09
[2019-06-18] MEDS: Normal Saline Flush 10 ML SYR IVP (12:30)
--- NOTE | 2019-06-18 12:39 | DI.RAD_ITS ---
SYMPTOMS/DIAGNOSIS: CHEST PAIN, PALPITATIONS PA AND LATERAL CHEST: The lungs are well expanded and free of infiltrate. There is no pleural effusion. The heart is not enlarged. There is tortuosity of the thoracic aorta. As visualized the hilar structures, mediastinum and tracheal air column appear intact. SUMMARY: No evidence of acute cardiopulmonary disease.
[2019-06-18 12:56] LABS: Abs Immature Grans 0.01 k/cumm (0.0-0.09); Absolute Basophil Count 0.06 k/cumm (0.0-0.2); Absolute Lymphocyte Count 2.01 k/cumm (1.2-3.4); Absolute Monocyte Count 0.49 k/cumm (0.11-0.7); Absolute Neutrophil Count 4.84 k/cumm (1.2-6.7); Basophils % 0.8; Eosinophils % 2.6; HCT 45.5 % (36.0-46.0); HGB 14.3 g/dL (12.0-15.5); Immature Grans % 0.1; Lymphocytes % 26.4; Mean Corp. HGB Concentration 31.4 g/dL (32.0-36.0); Mean Corpuscular Hemoglobin 28.1 pg (27.0-33.0); Mean Corpuscular Volume 89.6 fL (80-95); Mean Platelet Volume 10.2 fL (8.0-11.0); Monocytes % 6.4; Neutrophils % 63.7; Platelet Count 266 x1000/uL (130-400); RBC 5.08 m/cumm (4.00-5.20); RBC Distribution Width 15.8 % (11.7-14.6); White Blood Cell Count 7.61 k/cumm (4.4-10.8)
[2019-06-18 13:34] LABS: D-Dimer 1591 ng/mlFEU (<500)
[2019-06-18 13:37] LABS: ALT 26 U/L (14-59); AST 18 U/L (15-37); Alkaline Phosphatase 118 U/L (46-116); Anion Gap 11.9 mmol/L (3-11); BUN 14 mg/dL (7-18); Bilirubin, Total 0.5 mg/dL (0.2-1.0); CO2 27.1 mmol/L (21.0-32.0); CREATININE 0.77 mg/dL (0.55-1.02); Chloride 104 mmol/L (98-107); Glucose 123 mg/dL (70-100); NT-proBNP 284 pg/mL; Potassium 3.8 mmol/L (3.5-5.1); Sodium 143 mmol/L (136-145); Total Protein 7.6 g/dL (6.4-8.2)
[2019-06-18 13:39] LABS: Troponin I < 0.05 ng/mL (0.00-0.06)
--- NOTE | 2019-06-18 13:51 | DI.CT_ITS ---
SYMPTOMS/DIAGNOSIS: CHEST PAIN, PALPITATIONS PE CT: CT angiography was performed with multi slice acquisition and multi planar and 3D reconstruction. The study was carried out according to the usual protocol with an intravenous injection of 74 cc of Omnipaque 350. There is no evidence of PE. There is no infiltrate, or mass or pleural effusion. The heart is somewhat enlarged. There is no pericardial effusion. There is no aortic aneurysm. There is no evidence of hilar or mediastinal adenopathy. SUMMARY: There is no evidence of pulmonary embolic disease. No pulmonary infiltrate or mass is defined and there is no evidence of congestive failure or pneumonia.
[2019-06-18 14:25] LABS: TSH (W/Ref FT4) 1.37 uIU/mL (0.36-3.74)
[2019-06-18] MEDS: Omnipaque 350 MG/ML 100 ML BTL IJ (15:07)
[2019-06-18 15:56] LABS: Troponin I < 0.05 ng/mL (0.00-0.06)
--- NOTE | 2019-06-18 22:27 | NUR.NOTE ---
Nursing Note: faxed referal to pcp 06/18/2019
== END 2019-06-18 17:16 | disposition home or self-care (01) ==
PROVIDERS: Emergency Provider Student in an Organized Health Care Education/Training Program; PCP Physician Assistant Medical
DX: R07.89 Other chest pain (principal); R00.2 Palpitations; E11.9 Type 2 diabetes mellitus without complications; I10 Essential (primary) hypertension
CPT/HCPCS: 36415; 71275; 80053; 93005; 99285; 71046; 83735; 83880; 84443; 84484; 85025; 85379; 93010; 93225; J3490

== ENCOUNTER 2019-06-21 08:51 | Outpatient (CLI) | payer MEDICARE, OTHER, SELFPAY ==
--- NOTE | 2019-06-22 12:51 | HOLTER_ITS ---
DATE OF DICTATION: June 22, 2019 INDICATION: Palpitations. 48-HOUR HOLTER MONITOR Baseline sinus rhythm. Average heart rate 71 bpm, minimum heart rate 58 bpm, maximum heart rate 125 bpm. Frequent isolated ventricular ectopy accounting for 1.2% of total beats. No non-sustained VT. Rare atrial ectopy. No SVT or atrial fibrillation. No significant pauses or bradyarrhythmias. No diary entries.
== END 2019-06-21 09:11 ==
PROVIDERS: PCP Physician Assistant Medical; Visit Provider Student in an Organized Health Care Education/Training Program
DX: R00.2 Palpitations (principal); I49.3 Ventricular premature depolarization
CPT/HCPCS: 93226

== ENCOUNTER 2019-06-22 10:03 | Outpatient (CLI) | payer MEDICARE, OTHER, SELFPAY | END 2019-06-22 10:23 | PROVIDERS: PCP Physician Assistant Medical; Referring Provider Physician Assistant Medical; Visit Provider Internal Medicine Cardiovascular Disease | DX: R00.2 Palpitations (principal); I49.3 Ventricular premature depolarization | CPT/HCPCS: 93227 ==

== ENCOUNTER → 2019-07-02 00:36 | Outpatient (CLI) | payer MEDICARE, OTHER, SELFPAY ==
--- NOTE | 2019-07-02 09:30 | MERGEMPI_ITS ---
*[facility]* *[facility]* [address] [place] [address] Myocardial Perfusion Imaging - SPECT Regadenoson Date of study: 07/02/2019 *PATIENT PRESENTATION* Height: 175.3cm (69in) Blood Pressure: Weight: 92.7kg (204lb) BSA: 2.15m^2 Referring physician: Balbir Bee MD Ordering physician: Patrick Tucker Impressions: Normal perfusion by Tc99m Sestamibi Imaging. Summary: 1. Myocardial perfusion imaging: No myocardial perfusion defects noted. 2. The calculated left ventricular ejection fraction after stress: 58%. Indication: R07.89. History: REASON FOR TESTING: PT REPORTS PERIODIC CHEST PALPITATIONS ON AND OFF FOR THE PAST 3 WEEKS. PRESENT TO THE ER ON 06/18/19- [place] RULED OUT AT THAT TIME. PMH:S/P RTKR, CVA, DM, GI BLEED, DEPRESSION, HYPERTENSION, OBSTRUCTIVE SLEEP APNEA. FAMILY HX: FATHER- OF [place] AT AGE 62, HYPERTENSION. MOTHER AT AGE 42, UNK. CAUSE. EXCERCISE: NO SIGNIFICANT DAILY EXCERCISE S/P R TKR. SMOKING: NEVER SMOKER. PMH: COPD. Risk factors: NO CHOLESTEROL DATA AVAILABLE. Family history of coronary artery disease. Hypertension. Cerebral vascular disease. ALLERGIES: ASPIRIN, IBUPROFEN, TETRACYCLINE, ACETAMINOPHEN, BUSPIRONE, CODEINE, PENTAZOCINEM, BACTRIM, CIPRO, DULOXETINE, GABAPENTIN, PREDSNIONE, TRAMADOL, OXYCODONE, PROPOXYPHENE. MEDICATIONS:OXYCODONE 5 MG Q8H, ONDANSETRON HCL 4 MG QID PRN, MULTIVITAMIN 1 DAILY, LISINOPRIL 20 MG BID, LABATELOL 100 MG BID, GABAPENTIN 300 MG BID, DAPAGLIFLOZIN 10 MG DAILY, VIT B12 500 MCG DAILY, COENZYME Q10 30 MG DAILY, VIT D3 2000 UNITS DAILYM AMLODIPINE 10 MG DAILY, ALBUTEROL SULFATE 2 PUFF Q6H PRN. Imaging Technique: Protocol: Regadenoson. Acquisition: Gated SPECT; 1 day - rest/stress. The patient was imaged in the supine position. Attenuation correction used. Isotope administration: - Rest. Tc[99m]-sestamibi. Dose: 10.2mCi. Injection time: 09:45 AM. Injection to stress time: 00:45. - Stress. Tc[99m]-sestamibi. Dose: 32.7mCi. Injection time: 11:47 AM. 1-2 min before end of exercise Baseline ECG: LAST EKG 06/18/19- SINUS RHYTHM, 1ST DEGREE AVB. TODAY'S EKG-SINUS RHYTHM, 1ST DEGREE AVB, PROLONGED QT. HR 76. Stress protocol: +--------+---+ + + !Stage !HR !BP (mmHg) !Comments ! +--------+---+ + + !Baseline!76 !164/98 (120) ! ! +--------+---+ + + !1 min !105!170/104 (126)!Inject Regadenoson.! +--------+---+ + + !3 min !99 !170/92 (118) ! ! +--------+---+ + + !5 min !86 !142/90 (107) ! ! +--------+---+ + + !6 min !88 !140/82 (101) ! ! +--------+---+ + + * Stress results: The rate-pressure product for the peak heart rate and blood pressure was 65491dn Hg/min. Stress ECG: LEXISCAN TESTING ENDED IN 6 MINS THE MEDICATION EFFECT NO LONGER PRESENT. MAX HR WAS 114, WITH A HYPERTENSIVE BLOOD PRESSURE RESPONSE. ECTOPY: NONE NOTED. ANGINA: NO CHEST PAIN, PRESSURE OR PALPITATIONS REPORTED. ISCHEMIA: NO ISCHEMIC CHANGES NOTED. Myocardial perfusion: Imaging information: gated. No myocardial perfusion defects noted. Ventricular Function (Wall Motion): The calculated left ventricular ejection fraction after stress: 58%. Study data: Balbir Bee MD supervised and was readily available during the procedure. This study was interpreted by [facility]. Study status: Routine. Consent: The risks, benefits, and alternatives to the procedure were explained to the patient and informed consent was obtained. Procedure: Initial setup. A baseline ECG was recorded. Surface ECG leads and manual cuff blood pressure measurements were monitored. Heart sounds: Normal. Lung sounds: Normal. Regadenoson stress test. Stress testing was performed, with regadenoson by intravenous bolus, for a total dose of 0.4mgover 10.00sec, followed by a 5ml saline flush. The infusion was terminated due to per protocol. The patient was unable to exercise due to leg, joint, or back pain. Study completion: All catheters inserted during the procedure were removed. The patient tolerated the procedure well and was discharged from the lab. Discharge: The patient left the laboratory in stable condition. Birthdate: Patient birthdate: 1945. Sex: Gender: female. Study date: Study date: 07/02/2019. Study time: 00:01 AM. Electronically signed by Balbir Bee MD 07/02/2019 17:02
[2019-07-02] MEDS: Regadenoson 0.4 MG/5 ML SYR IVP (12:05)
== END ==
PROVIDERS: PCP Physician Assistant Medical; Visit Provider Specialist/Technologist Athletic Trainer
DX: R07.89 Other chest pain (principal); R00.2 Palpitations; I10 Essential (primary) hypertension; E11.9 Type 2 diabetes mellitus without complications; Z82.49 Family history of ischemic heart disease and other diseases of the circulatory system
CPT/HCPCS: 78452; 93016; 93018; 93017; J2785

== ENCOUNTER 2020-03-16 09:18 | Inpatient (IN) | payer MEDICARE, OTHER, SELFPAY ==
[2020-03-16] VITALS (18 sets, daily range): BP systolic 127–181; BP diastolic 73–111; PULSE 79–105; RESP 16–19; TEMP 36.7–37.2; O2SAT 93–98
--- NOTE | 2020-03-16 | DI.CT_ITS ---
EXAM: CT HEAD WO CLINICAL HISTORY: fall. TECHNIQUE: Imaging Protocol: Axial computed tomography images with coronal and sagittal reformatted images were created and reviewed COMPARISON: No exams were available for comparison FINDINGS: Ventricles and Extra axial spaces: Normal in size and morphology for the patient's age. Hemorrhage: None. Cerebral parenchyma: Tiny bilateral basal ganglia lacunar infarcts. Mild basal ganglia calcification s.. Midline shift: None. Brainstem/Cerebellum: Normal. Calvarium: Hyperostosis frontalis interna. Visualized Paranasal sinuses/Mastoids: There is retention cyst versus polyp in the left maxillary sin us. Soft Tissues: Unremarkable. IMPRESSION: No acute intracranial process. RADIATION DOSE DELIVERED: 630.24mGy.cm Total DLP DATA REPOSITORY: All CT scans at this facility are submitted to the National Radiology Data Registry (NRDR) Dose Index Registry (DIR) with the [employer] (A[employer]). RADIATION OPTIMIZATION: All CT scans at this facility use at least one of these dose optimization te chniques: automated exposure control; mA and/or kV adjustment per patient size (includes targeted exa ms where dose is matched to clinical indication); or iterative reconstruction.
--- NOTE | 2020-03-16 09:15 | DI.RAD_ITS ---
EXAM: XR ANKLE RT COMPLETE CLINICAL HISTORY: deformity after fall. TECHNIQUE: 2D digital imaging was performed. COMPARISON: No exams were available for comparison FINDINGS: BONES: There is a fracture extending transversely through the medial malleolus to the level of the an kle mortise. There is slight separation at the articular surface. There is an oblique fracture thro ugh the distal fibula, above the the level the ankle mortise. The talar dome appears intact. JOINTS: The ankle mortise is normally aligned. SOFT TISSUE: Marked soft tissue swelling around both malleoli. IMPRESSION: Medial malleolar and distal fibular fractures. DATA REPOSITORY: RADIATION DOSE DELIVERED:
--- NOTE | 2020-03-16 09:15 | DI.RAD_ITS ---
EXAM: XR TIB/FIB RT CLINICAL HISTORY: pain and deformity distal to knee. TECHNIQUE: 2D digital imaging was performed. COMPARISON: No exams were available for comparison FINDINGS: BONES: There is a fracture of the distal femur above the level of the knee prosthesis. Proximal tibi a and fibula appear intact. There is an oblique fracture through the distal fibula there is mild com minution but no significant displacement. A fracture of the medial malleolus is visualized at the ed ge of the film. SOFT TISSUE: Soft tissue swelling throughout the lower leg. IMPRESSION: Fracture of the distal femur, above the level of the knee prosthesis. Distal fibular and medial mall eolar fractures.. DATA REPOSITORY: RADIATION DOSE DELIVERED:
--- NOTE | 2020-03-16 09:21 | W.ED.GENAD ---
Discharge Plan Disposition Patient Disposition: [facility] INPATIENT Condition: Fair Discharge Details Chief Complaint: Orthopedic Clinical Impression: Closed right femoral fracture, Ankle fracture, right Admit Date/Time: 03/16/20 12:20 Admit Provider: Dimitri Munoz Attending Provider: Dimitri Munoz Primary Care Provider: Arron Caceres ED Provider: Jessica Naranjo Discharge Data Discharge Date/Time-TO BE ENTERED AT DEPARTURE: 03/16/20 13:11 Medical Decision Making Patient is a pleasant 74-year-old female presents today with chief complaint of right lower extremity pain. She is brought in via EMS. She reports that this morning she awoke and tripped over her puppy pad that lays next to her bed. Suffered immediate discomfort and deformity to the right lower extremity. Patient is status post right TKA. She states that the right side is chronically weak with sensory deficits she associates this with previous CVA. She denies any sensation changes from her baseline. She denies other injury the time of the incident. Denies any headache visual change, neck pain, back pain. No chest pain or shortness of breath. Denies any nausea vomiting. No episodes of incontinence. Patient was noted to have deformity by EMS. They did have to help with extrication as patient was unable to bear weight on this extremity. They report giving patient 150 mcg of fentanyl which did help with her discomfort. Has not noted any active bleeding. Patient is not anticoagulated. On exam, patient does not appear uncomfortable particular with movement. She is declining further pain medication at this point. She has 2+ distal pulses. She has what appears to be an external rotation deformity distal to the right knee. Ankle is swollen diffusely and she does have medial and lateral malleoli are discomfort. No pain in the foot. Good range of motion of her toes. Patient also has fairly diffuse discomfort at the knee. No effusion. No pain with AP or lateral compression of the pelvis or pain to palpation over the hip. Remaining trauma exam without abnormality. X-ray reviewed by myself showing medial and lateral malleoli fractures as well as distal femur fracture. This does not appear to have affected her implant. Will obtain dedicated femur films. Patient has nondisplaced distal femur fracture just proximal to the hardware is not appear to involve the hardware and I see no lucency around the implant. Implant was placed 1 year ago. Nondisplaced medial malleolar and distal fibular fracture. Consulted with Dr. diaz. He is reviewed the images and have asked for CT as well as dedicated knee x-rays. Advised the patient will need to remain n.p.o., will likely need surgery of the femur fracture. Patient is resting comfortably. Will obtain ECG and baseline labs in preparation for surgical procedure. EKG was reviewed by Dr. Pozo. Patient is in a normal sinus rhythm with a rate of 81. AV block and a MN interval of 250. This is baseline compared to previous. No acute ischemic changes noted. CT and x-ray were reviewed by Dr. diaz. He advised surgical intervention for both. He advised that as they will need more hardware than is currently in house, surgery will have to be staged for tomorrow. Patient will remain inpatient, immobilized with leg elevated. Will control her pain. She will be hospital admission and will consult with Dr. conde. Consulted with Dr. conde who agrees to admission. Patient continues to rest comfortably. Spoke with Dr. Gauthier who came to discuss surgical procedure with [facility] patient. She is in agreement. Eating and drinking at this time. Will place knee immobilizer and continue to have the LE elevated. HPI General Mode of arrival: EMS. Date/Time Provider Initiated Documentation: 03/16/20 09:20. Limitations to Documentation: no limitations. Information obtained by: patient, EMS and RN notes reviewed. History of Present Illness 74 year old F presents to the emergency department with the chief complaint of right ankle and RLE pain, described as moderate, with intensity rated at 7. Quality is described as sharp, and is localized to the right and lower extremity. Patient reports no radiation. Patient started experiencing this minute(s) and it has been constant. Immobilization improves symptom(s), Movement worsens symptoms . Patient notes no other symptoms.. Patient did receive the following treatments prior to arrival, other (150 mcg of fentanyl) Related Data Home Medications Medication Instructions Recorded Confirmed cyanocobalamin (vitamin B-12) 500 500 mcg PO DAILY 07/11/18 03/16/20 mcg tablet labetalol 200 mg tablet 100 mg PO BID 07/11/18 03/16/20 lisinopril 20 mg tablet 20 mg PO BID tab 07/11/18 03/16/20 multivitamin 1 tab PO DAILY 07/11/18 03/16/20 gabapentin 300 mg capsule 300 mg PO BID #60 cap 08/01/19 06/14/20 albuterol sulfate 2 puff INHALATION Q6H PRN 06/18/19 03/16/20 albuterol sulfate [Ventolin HFA] 2 puff INHALATION Q6H PRN 06/18/19 03/16/20 dapagliflozin [Farxiga] 10 mg PO 5XW 03/16/20 03/16/20 Previous Rx's Medication Instructions Recorded gabapentin 300 mg capsule 300 mg PO BID #60 cap 05/03/19 Allergies Allergy/AdvReac Type Severity Reaction Status Date / Time aspirin Allergy Severe GI Bleed Verified 03/16/20 09:22 ibuprofen [From Motrin] Allergy Severe GI Bleed Verified 03/16/20 09:22 Tetracyclines Allergy Severe Makes my Verified 03/16/20 09:22 skin peel and throat close up acetaminophen [From Percocet] Allergy Intermediate Pt states Verified 03/16/20 09:22 she can take acetaminophen buspirone Allergy Unknown Verified 03/16/20 09:22 codeine Allergy Unknown Verified 03/16/20 09:22 pentazocine [From Talwin] Allergy Unknown Verified 03/16/20 09:22 sulfamethoxazole Allergy Unknown Verified 03/16/20 09:22 [From Bactrim] trimethoprim [From Bactrim] Allergy Unknown Verified 03/16/20 09:22 ciprofloxacin [From Cipro] AdvReac Severe made my Verified 03/16/20 09:22 stomach bleed duloxetine [From Cymbalta] AdvReac Severe made me Verified 03/16/20 09:22 sick and suicidal gabapentin AdvReac Severe Makes me Verified 03/16/20 09:22 want to commit suicide prednisone AdvReac Severe Raises BP Verified 03/16/20 09:22 and blood sugar per Pt tramadol AdvReac Severe major GI Verified 03/16/20 09:22 upset oxycodone [From Percocet] AdvReac Unknown Verified 03/16/20 09:22 propoxyphene AdvReac Unknown Verified 03/16/20 09:22 [From Darvocet-N] General Stated Complaint: Orthopedic RADHA: 3 Review of Systems Constitutional Constitutional: Reports as per HPI, Denies chills, Denies fatigue, Denies fever(s), Denies headache(s) and Denies weakness Eyes Eyes: Reports as per HPI, Denies blurry vision, Denies change in vision and Denies loss of vision ENT Ears, Nose, Mouth, and Throat: Denies abnormal hearing and Denies headache(s) Cardiovascular Cardiovascular: Reports as per HPI, Denies chest pain and Denies dyspnea Respiratory Respiratory: Reports as per HPI, Denies cough, Denies pain on inspiration, Denies pain with cough and Denies dyspnea Gastrointestinal Gastrointestinal: Reports as per HPI, Denies abdominal pain, Denies nausea and Denies vomiting Genitourinary Genitourinary: Reports as per HPI and Denies urinary incontinence Musculoskeletal Musculoskeletal: Reports as per HPI and Reports abnormal gait (Unable to ambulate secondary to right lower extremity pain) Integumentary/Breasts Skin/Breast: Reports as per HPI and Denies rash Neurologic Neurologic: Reports as per HPI, Denies abnormal hearing, Denies abnormal movements, Denies abnormal speech, Reports abnormal gait (Unable to ambulate secondary to right lower extremity pain), Denies headache(s), Denies lack of coordination, Denies localized weakness, Denies loss of vision, Denies seizure-like activity, Reports paresthesias (Chronic diminished sensation on the right side secondary to cva.) and Denies weakness Endocrine Endocrine: Denies fatigue [facility] Medical History (Updated 03/16/20 @ 14:11 by Dorie Colin NP) Arthritis of knee, right (Resolved) CVA (cerebral vascular accident) (Chronic) GI bleed (Chronic) Gout (Chronic) Hiatal hernia (Chronic) History of depression (Chronic) meds in past presently on no rx for depression Hypertension (Chronic) TIM (obstructive sleep apnea) (Chronic) has used cpap in past presently not using Osteoarthritis (Chronic) Surgical History History of appendectomy (Chronic) History of arthroscopic knee surgery (Chronic) History of colonoscopy (Chronic) History of hysterectomy (Chronic) Family History Father Heart disease Social History Smoking/Tobacco Use Status: Never Alcohol Intake: never Drug use: Never Do you feel safe at home: Yes Do you feel safe in your relationship?: Yes Additional Social history: Exam Const General: cooperative, healthy appearing, comfortable, no acute distress, well developed and well groomed Nutritional Appearance: average body habitus and well nourished Orientation: alert, awake and oriented x3 [facility] Head: normal to inspection, no palpable skull fracture, normocephalic and atraumatic Ears: hearing grossly normal bilaterally, external ears normal and TM's normal bilaterally General nose exam: external nose normal Mouth: oral mucosae normal, lip normal and tongue normal Throat: posterior oropharynx normal Eyes General: appearance normal, both eyes and all related structures Visual Mccoy: normal visual mccoy by confrontation Alignment and Position: alignment normal Periorbital: periorbital findings normal Eyelids: eyelids normal Conjunctivae: conjunctivae normal Pupils: PERRL EOM: EOM intact bilaterally Neck Neck: normal visual inspection, full ROM, no lymphadenopathy, no meningeal signs, trachea midline and supple Chest Chest: normal inspection of the chest, normal palpation of entire chest wall, no crepitus and no localized rib tenderness Resp Effort & Inspection: normal respiratory effort, able to speak in complete sentences and no respiratory distress Auscultation: clear to auscultation bilaterally, no rales, no rhonchi and no wheezes Cardio Rate: regular rate Rhythm: regular rhythm Heart Sounds: S1 normal and S2 normal GI Inspection: normal to inspection, no abdominal wall ecchymosis, no edema and non-distended Palpation: soft, no hepatosplenomegaly, not firm, no guarding, no pulsatile masses, not rigid and nontender Auscultation: normal bowel sounds Back/Spine/Pelvis Cervical Spine: normal cervical lordosis and cervical ROM normal Thoracic/Lumbar Spine: thoracic and lumbar spine normal to inspection, thoraco-lumbar ROM normal, No thoraco-lumbar ROM limited, No thoraco-lumbar spasm and No thoracic spinal tenderness Pelvis: no pain with anterior-posterior compression and no pain with lateral compression Skin General skin exam: no rashes or lesions noted Lesions: no lesions Rashes: no rashes Trauma: no lacerations or abrasions Wounds: no wounds Neuro General: patient alert, patient awake, patient oriented x3, gait normal, tone normal and moves all extremities (moving toes on right foot) Cranial Nerves: CN's II-XI intact bilaterally Cognition: normal cognition Speech: speech normal Gait: gait abnormal (unable to ambulate) Motor: muscle tone normal throughout and strength 5/5 throughout Sensory Exam: no sensory deficits noted (no saddle paresthesias, patient reports sensation in RLE baseline) Extrem General: capillary refill normal and no pedal edema Right lower extremity: normal capillary refill, hip/thigh Details: normal to inspection; no tenderness and no swelling, knee Details: tenderness (fairly diffuse pain,no effusion noted) and other (exam limited, deformity appears distal to knee); no swelling, ROM abnormal (unable to range ) and abnormal knee ligament exam (not assessed seconday to pain and deformity), lower leg Details: tenderness (diffuse pain, maximal at ankle) and no edema; inspection abnormal (appears externally rotated), no erythema, no localized swelling, no palpable cords, no abrasions, no ecchymosis and no crepitus, ankle Details: abnormal to inspection (appears externally rotated comopared tothe knee), tenderness Location: of the lateral malleolus and of the medial malleolus; not of the achilles tendon and swelling Details: diffusely; ROM abnormal (unwilling to range- swollen, painful), no unusual warmth, no abrasions and no crepitus and foot Details: normal capillary refill, normal to inspection, toes with normal ROM, no edema, vascular exam Details: dorsalis pedis pulse present and normal capillary refill and motor-sensory exam (limited sensation, she reports baseline and unchaged); no tenderness, no abrasion, no laceration, no ecchymosis and no crepitus; abnormal to inspection and ROM limited Psych Appearance: grossly normal and well kempt Mental Status: mental status grossly normal Speech and Movement: speech and movement normal Course Vital Signs Vital signs: Vital Signs Temperature 36.7 C 03/16/20 09:15 Pulse 83 03/16/20 09:15 Respiratory Rate 16 03/16/20 09:15 Blood Pressure 181/94 H 03/16/20 09:15 Pulse Oximetry 93 L 03/16/20 09:15 Temperature 36.7 C 03/16/20 09:15 Temperature Source Tympanic 03/16/20 09:15 Pulse 83 03/16/20 09:15 Respiratory Rate 16 03/16/20 09:15 Blood Pressure 181/94 H 03/16/20 09:15 Blood Pressure Position Sitting 03/16/20 09:15 Pulse Oximetry 93 L 03/16/20 09:15 Oxygen Delivery Method Room Air 03/16/20 09:15 Oxygen Flow Rate 0 03/16/20 09:15 Pain Level 7 03/16/20 09:15
--- NOTE | 2020-03-16 09:45 | DI.RAD_ITS ---
EXAM: XR FEMUR RT CLINICAL HISTORY: fx. TECHNIQUE: 2D digital imaging was performed. COMPARISON: CR,XR XR KNEE RT 2V AP,LAT from 03/16/2020 CR,XR XR TIB/FIB RT from 03/16/2020 FINDINGS: There is a nondisplaced fracture of the distal femoral metaphysis extending to the level of the knee prosthesis. No additional fractures are seen more superiorly in the femur. There is no hip dislocat ion. The there are degenerative changes at the hip. Total knee prosthesis is seen. IMPRESSION: Nondisplaced fracture of the distal femoral metaphysis. DATA REPOSITORY: RADIATION DOSE DELIVERED:
--- NOTE | 2020-03-16 10:15 | DI.RAD_ITS ---
EXAM: XR KNEE RT 2V AP,LAT CLINICAL HISTORY: complete images from tib/fib and femur films. TECHNIQUE: 2D digital imaging was performed. COMPARISON: CR XR knee RT 2V AP,lat from 02/05/2019 FINDINGS: A total knee prosthesis is again noted. There is a nondisplaced fracture seen through the distal sha ft of the femur, above the level of the prosthesis. The fracture extends to the level of the prosthe sis. The patella and proximal tibia and fibula appear intact. A joint effusion and soft tissue swel ling are present. IMPRESSION: Nondisplaced fracture superior to the level of the femoral component of the knee prosthesis. DATA REPOSITORY: RADIATION DOSE DELIVERED:
--- NOTE | 2020-03-16 10:15 | DI.CT_ITS ---
EXAM: CT LOWER EXTREMITY RT WO CLINICAL HISTORY: distal femur fracture, through the implant. TECHNIQUE: Imaging Protocol: Axial computed tomography images with coronal and sagittal reformatted images were created and reviewed. CONTRAST MATERIAL: Noncontrast COMPARISON: CR,XR XR KNEE RT 2V AP,LAT from 03/16/2020 FINDINGS: A total knee prosthesis is seen which creates mild artifact. There is a nondisplaced fracture seen e xtending obliquely through the distal femoral metadiaphysis to the level of the knee prosthesis. The re is mild comminution. A hemarthrosis is seen. The patella and proximal tibia and fibula appear in tact. The bones appear osteoporotic. There is anterior soft tissue swelling. IMPRESSION: Nondisplaced fracture of the distal femoral metaphysis extending to the level of the knee prosthesis . RADIATION DOSE DELIVERED: 333.25mGy.cm Total DLP DATA REPOSITORY: All CT scans at this facility are submitted to the National Radiology Data Registry (NRDR) Dose Index Registry (DIR) with the [employer] ([employer]). RADIATION OPTIMIZATION: All CT scans at this facility use at least one of these dose optimization te chniques: automated exposure control; mA and/or kV adjustment per patient size (includes targeted exa ms where dose is matched to clinical indication); or iterative reconstruction.
--- NOTE | 2020-03-16 10:18 | DI.VRAD_ITS ---
PROCEDURE INFORMATION: Exam: XR Right Tibia and Fibula Exam date and time: 03/16/2020 9:39 AM Age: 74 years old Clinical indication: Pain; Ankle; Right TECHNIQUE: Imaging protocol: XR Right tibia and fibula. Views: 2 views. COMPARISON: CR XR knee RT 2V AP,lat 02/05/2019 10:14 AM FINDINGS: Bones/joints: Total knee replacement. Nondisplaced fractures in the distal femoral shaft is just superior to total knee replacement. Displaced spiral oblique fracture in the distal fibula. Soft tissues: Soft tissue swelling around the knee and ankle IMPRESSION: 1. Nondisplaced fractures in the distal femoral shaft is just superior to total knee replacement. 2. Displaced spiral oblique fracture in the distal fibula. Dictated and Authenticated by: Palmer Smith MD. Ordering:COMFORT Lopez MD
--- NOTE | 2020-03-16 10:19 | DI.VRAD_ITS ---
PROCEDURE INFORMATION: Exam: XR Right Ankle Exam date and time: 03/16/2020 9:40 AM Age: 74 years old Clinical indication: Injury or trauma; Fall; Initial encounter; Blunt trauma; Ankle; Right TECHNIQUE: Imaging protocol: XR Right ankle. Views: 3 or more views. COMPARISON: No relevant prior studies available. FINDINGS: Bones/joints: Comminuted displaced fractures of the distal fibular shaft. Horizontal fracture of the medial malleolus minimally displaced. Degenerative changes in the tibiotalar joint Soft tissues: Bimalleolar soft tissue swelling. IMPRESSION: 1. Comminuted displaced fractures of the distal fibular shaft. 2. Horizontal fracture of the medial malleolus minimally displaced. 3. Bimalleolar soft tissue swelling. Dictated and Authenticated by: Palmer Smith MD. Ordering:COMFORT Lopez MD
--- NOTE | 2020-03-16 10:20 | DI.VRAD_ITS ---
PROCEDURE INFORMATION: Exam: XR Right Femur Exam date and time: 03/16/2020 10:03 AM Age: 74 years old Clinical indication: Pain; Knee; Right TECHNIQUE: Imaging protocol: XR Right femur. Views: 2 views. COMPARISON: CR XR TIB/FIB RT 03/16/2020 9:39 AM FINDINGS: Bones/joints: Nondisplaced fracture in the distal femoral shaft just proximal to the total knee replacement. Degenerative changes in the right hip Soft tissues: Soft tissue swelling of the thigh IMPRESSION: Nondisplaced fracture in the distal femoral shaft just proximal to the total knee replacement. Dictated and Authenticated by: Palmer Smith MD. Ordering:COMFORT Lopez MD
[2020-03-16] MEDS: fentaNYL 100 MCG/2 ML VIAL 50 MCG IVP (10:38)
[2020-03-16] MEDS: Lactated Ringers 1,000 ML 200 ML IV ×2 (10:45→23:44)
[2020-03-16 10:50] LABS: Abs Immature Grans 0.03 k/cumm (0.0-0.09); Absolute Basophil Count 0.06 k/cumm (0.0-0.2); Absolute Eosinophil Count 0.13 k/cumm (0.0-0.7); Absolute Lymphocyte Count 1.52 k/cumm (1.2-3.4); Absolute Monocyte Count 0.49 k/cumm (0.11-0.7); Absolute Neutrophil Count 9.25 k/cumm (1.2-6.7); Basophils % 0.5; Eosinophils % 1.1; HCT 46.3 % (36.0-46.0); HGB 15.2 g/dL (12.0-15.5); Immature Grans % 0.3 %; Lymphocytes % 13.2; Mean Corp. HGB Concentration 32.8 g/dL (32.0-36.0); Mean Corpuscular Hemoglobin 29.7 pg (27.0-33.0); Mean Corpuscular Volume 90.4 fL (80-95); Mean Platelet Volume 9.9 fL (8.0-11.0); Monocytes % 4.3; Neutrophils % 80.6; Platelet Count 216 x1000/uL (130-400); RBC 5.12 m/cumm (4.00-5.20); RBC Distribution Width 13.8 % (11.7-14.6); White Blood Cell Count 11.48 k/cumm (4.4-10.8)
[2020-03-16 11:09] LABS: ALT 28 U/L (14-59); AST 23 U/L (15-37); Albumin 4.3 g/dL (3.4-5.0); Alkaline Phosphatase 123 U/L (46-116); Anion Gap 10.4 mmol/L (3-11); BUN 12 mg/dL (7-18); Bilirubin, Total 0.7 mg/dL (0.2-1.0); CO2 27.6 mmol/L (21.0-32.0); CREATININE 0.74 mg/dL (0.55-1.02); Calcium 9.3 mg/dL (8.5-10.1); Chloride 101 mmol/L (98-107); Glucose 188 mg/dL (74-106); Potassium 3.9 mmol/L (3.5-5.1); Sodium 139 mmol/L (136-145); Total Protein 7.8 g/dL (6.4-8.2)
--- NOTE | 2020-03-16 11:26 | DI.VRAD_ITS ---
PROCEDURE INFORMATION: Exam: CT Right Lower Extremity Without Contrast, Knee Exam date and time: 03/16/2020 10:21 AM Age: 74 years old Clinical indication: Injury or trauma; Fall; Initial encounter; Blunt trauma; Knee; Right; Injury details: Ankle FX as well, limited PT tolerance / mobility; Prior surgery; Surgery type: Tkr 2018 TECHNIQUE: Imaging protocol: CT of the Right lower extremity without contrast was performed. Exam focused on the knee. COMPARISON: CR XR knee RT 2V AP,lat 02/05/2019 10:14 AM FINDINGS: Bones/joints: Comminuted minimally displaced fractures in the distal femoral shaft. Moderate suprapatellar joint effusion. Total knee replacement Soft tissues: Soft tissue swelling in the distal thigh IMPRESSION: 1. Comminuted minimally displaced fractures in the distal femoral shaft. 2. Moderate suprapatellar joint effusion. Dictated and Authenticated by: Palmer Smith MD. Ordering:COMFORT Lopez MD
--- NOTE | 2020-03-16 11:27 | DI.VRAD_ITS ---
PROCEDURE INFORMATION: Exam: XR Right Knee Exam date and time: 03/16/2020 11:01 AM Age: 74 years old Clinical indication: Pain; Knee; Right TECHNIQUE: Imaging protocol: XR Right knee. Views: 3 views. COMPARISON: CR XR knee RT 2V AP,lat 02/05/2019 10:14 AM FINDINGS: Bones/joints: A comminuted minimally displaced fracture in the distal femoral shaft just proximal to the total knee replacement. Moderate suprapatellar joint effusion.. Soft tissues: Soft tissue swelling of the distal thigh IMPRESSION: 1. A comminuted minimally displaced fracture in the distal femoral shaft just proximal to the total knee replacement. 2. Moderate suprapatellar joint effusion.. Dictated and Authenticated by: Palmer Smith MD. Ordering:COMFORT Lopez MD
[2020-03-16 12:28] LABS: PTT Activated 26.5 sec (21.0-31.4); Prothrombin Time 10.4 sec (9.3-11.0)
--- NOTE | 2020-03-16 12:45 | DI.RAD_ITS ---
EXAM: XR CHEST 2V PA LATERAL CLINICAL HISTORY: presurgical TECHNIQUE: 2D digital imaging was performed. COMPARISON: CR XR CHEST 2V PA LATERAL from 06/18/2019 FINDINGS: Heart size is normal. The aorta is tortuous. Stable mediastinal calcification. Stable tiny bilater al pulmonary calcifications. No infiltrate or effusion. IMPRESSION: No acute pulmonary findings. DATA REPOSITORY: RADIATION DOSE DELIVERED:
--- NOTE | 2020-03-16 13:18 | W.ORTHOCONSU ---
Date of service: 03/16/20 Time of Service: 13:18 History of Present Illness History of Present Illness Chief Complaint: Right leg pain Narrative: Chief Complaint: Right leg pain HPI: 74-year-old female status post mechanical trip and fall at home earlier today. Sudden onset right ankle pain and deformity. Also moderate right knee pain. History right knee replacement in January [address] Monge here at [facility]. Unable to bear weight. Brought to emergency room for evaluation. Found to have periprosthetic right distal femur fracture and bimalleolar ankle fracture both on the right side. Denies any pre-existing right ankle or right knee symptoms. Denies any right knee swelling redness drainage warmth or mechanical symptoms. prior injury: None to ankle. Right knee replacement 1 year ago for knee arthritis. attempted treatments: None yet numbness/tingling: Throughout right side of body upper and lower extremities chronic at baseline. Describes significant and nerve injury about knee from prior strokes prior imaging: X-rays right femur, knee, tib-fib, ankle and CT right distal femur done in emergency department. 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 GI bleeding with NSAIDs and aspirin. diabetes: Yes, last hemoglobin A1c July 2019 6.9 allergies, side effects, and intolerances: aspirin, ibuprofen, tetracyclines, acetaminophen, buspirone, codeine, pentazocine, sulfamethoxazole, trimethoprim, ciprofloxacin, duloxetine, gabapentin, prednisone, tramadol, oxycodone, propoxyphene FH: non-contributory SH: hand dominance: Right occupation: Retired smoke cigarettes: No EtOH: None Consult Reason Orthopedic surgical evaluation right periprosthetic distal femur fracture and bimalleolar ankle fracture Assessment and Plan Assessment and plan (1) Bimalleolar fracture of right ankle: Status: Acute Qualifiers: Encounter type: initial encounter Fracture type: closed Qualified Code(s): S82.841A - Displaced bimalleolar fracture of right lower leg, initial encounter for closed fracture (2) Periprosthetic fracture around internal prosthetic right knee joint, initial encounter: Status: Acute (3) Status post total knee replacement, right: Status: Acute Assessment and plan: 74-year-old female with acute right distal femur periprosthetic fracture supracondylar fracture above stable knee replacement. Minimally displaced bimalleolar Pritchett C ankle fracture. Stable, chronic right lower extremity weakness numbness from past CVAs. Unfortunately, patient sustained multiple fractures as a result of mechanical fall earlier today. Recommended management for the distal femur fracture is surgery as this patient is active and ambulatory. Likely to include open reduction internal fixation due to minimal distal bone preventing use of retrograde intramedullary nail. Should the knee replacement prosthesis proved to be loose, revision knee replacement or distal femur replacement would be required. The ankle fracture is an unstable pattern, but is minimally displaced. The literature supports surgery with ORIF for bimalleolar and trimalleolar ankle fractures even in the elderly with better functional results and more predictable healing. I would be concerned about maintaining the patient's right lower extremity in a splint then cast given the likely swelling that will occur after distal femur surgery and the patient's poor sensation throughout the right lower extremity, which may predispose to skin breakdown cast being too tight initially and then to loose. Will likely plan for ankle ORIF at the time of distal femur surgery as this gives the best chance for early mobilization and rehabilitation. More recent literature supports weightbearing as tolerated for distal femur fractures in geriatric patients and early weightbearing for operatively fixed bimalleolar ankle fractures. Fortunately, the patient strong side is her uninjured left side. I do believe she will be able to appropriately unload her right side and hopefully ambulate with assist device like a walker. Medical admission and optimization for surgery tomorrow morning. Case discussed with primary medical team and emergency room physician. Recommended and will follow-up chest x-ray, hemoglobin A1c, and recommend well-padded long-leg knee immobilizer and gentle elevation on pillows while on bedrest until tomorrow. H for DVT prophylaxis to be held after midnight tonight. N.p.o. and IV fluids after midnight. Postoperative anticoagulation likely Lovenox 40 mg daily as patient is unable to tolerate aspirin and is high risk for bleed with direct oral anticoagulant given history of cerebral hemorrhage and GI bleeds. The risks, benefits, and alternatives were thoroughly discussed with the patient in the emergency department. Emphasized how the patient is high risk for complication like infection, wound healing problem, fracture healing problem or hardware failure given multiple fractures in the same extremity, poor protective sensation and strength about the injured sites, and diabetes. Patient was counseled regarding pain management, expected postoperative course, and recovery timeline. Anticipate discharge home with any home health services like physical therapy as needed 1 to 3 nights after surgery. Patient will have a partner at home for assistance. All questions were answered. Informed consent was obtained. She agrees and understands treatment plan. Call me directly with any questions or concerns Review of Systems Constitutional Constitutional: Denies chills, Denies fever(s) and Reports weakness Eyes Eyes: Denies diplopia and Denies loss of vision ENT Ears, Nose, Mouth, and Throat: Denies dental pain and Reports other (cavities?treated) Cardiovascular Cardiovascular: Denies chest pain with activity, Denies irregular heart rhythm and Denies dyspnea Respiratory Respiratory: Denies cough and Denies dyspnea Gastrointestinal Gastrointestinal: Denies nausea and Denies vomiting Musculoskeletal Musculoskeletal: Reports as per HPI, Reports numbness and Reports tingling Integumentary/Breasts Skin/Breast: Denies rash and Denies wounds Neurologic Neurologic: Reports as per HPI, Denies loss of vision, Reports numbness, Reports tingling and Reports weakness Comments: Chronic Psychiatric Psychiatric: Denies anxiety and Denies depression Hematologic/Lymphatic Hematologic/Lymphatic: Denies easy bleeding and Reports easy bruising Allergic/Immunologic Allergic/Immunologic: Reports as per HPI [facility] Medical History Arthritis of knee, right (Resolved) CVA (cerebral vascular accident) (Chronic) Diabetes mellitus (Chronic) checks am blood sugars typically in 150-180 range last a1c 7.1 GI bleed (Chronic) Gout (Chronic) Hiatal hernia (Chronic) History of depression (Chronic) meds in past presently on no rx for depression Hypertension (Chronic) TIM (obstructive sleep apnea) (Chronic) has used cpap in past presently not using Osteoarthritis (Chronic) Surgical History History of appendectomy (Chronic) History of arthroscopic knee surgery (Chronic) History of colonoscopy (Chronic) History of hysterectomy (Chronic) Social History Smoking/Tobacco Use Status: Never Alcohol Intake: never Drug use: Never Do you feel safe at home: Yes Do you feel safe in your relationship?: Yes Additional Social history: Exam Const General: cooperative, comfortable and no acute distress Orientation: alert, awake and not confused Limitations: mental status not altered and no language barrier HENMT Head: normocephalic and atraumatic Neck Neck: normal visual inspection and full ROM Resp Effort & Inspection: normal respiratory effort, able to speak in complete sentences, no audible wheezes and no grunting Cardio Other: 2+ radial pulse. Regular rate and rhythm. Mild pedal edema. No pitting edema. General: deferred Skin General skin exam: no rashes or lesions noted Neuro General: patient alert, patient awake and patient oriented x3 Cognition: normal cognition Speech: speech normal Extrem Other: Bilateral upper extremities and left lower extremity: No deformity. No swelling. Demonstrates full active painless range of motion. No crepitation. Right lower extremity: All thigh and leg compartment soft. Dense diminished sensation thigh and about knee. Less loss of sensation distal leg and about ankle. No wounds or openings. Unable to test strength but reportedly weak at baseline. Does demonstrate minimal toe extension flexion. Tenderness medially and lateral ankle. Only tender to deep palpation about the knee. Prior curvilinear midline knee replacement scar. No erythema, no wound drainage, no fluctuance. Bilateral calf nontender Psych Appearance: grossly normal Mental Status: mental status grossly normal Speech and Movement: speech and movement normal Affect: normal affect Attitude: cooperative Results Last Vital Signs Temp 98.1 F 03/16/20 13:14 Pulse 90 03/16/20 13:14 Resp 16 03/16/20 13:14 BP 135/82 03/16/20 13:14 Pulse Ox 95 03/16/20 13:14 Labs Result diagrams: 03/16/20 10:40 03/16/20 10:40 Labs: Laboratory Results - last 24 hr 03/16/20 03/16/20 03/16/20 10:40 10:40 10:40 WBC 11.48 H RBC 5.12 Hgb 15.2 Hct 46.3 H MCV 90.4 MCH 29.7 MCHC 32.8 RDW 13.8 Plt Count 216 MPV 9.9 Immature Gran % 0.3 Neutrophils % 80.6 Lymphocytes % 13.2 Monocytes % 4.3 Eosinophils % 1.1 Basophils % 0.5 Absolute Neutrophils 9.25 H Absolute Lymphocytes 1.52 Absolute Monocytes 0.49 Absolute Eosinophils 0.13 Absolute Basophils 0.06 PT INR APTT Sodium 139 Potassium 3.9 Chloride 101 Carbon Dioxide 27.6 Anion Gap 10.4 BUN 12 Creatinine 0.74 Estimated GFR/1.73 m2 >= 60.00 Glucose 188 H Calcium 9.3 Total Bilirubin 0.7 AST 23 ALT 28 Alkaline Phosphatase 123 H Total Protein 7.8 Albumin 4.3 Patient ABO/Rh AB Positive Antibody Screen Negative 03/16/20 10:40 WBC RBC Hgb Hct MCV MCH MCHC RDW Plt Count MPV Immature Gran % Neutrophils % Lymphocytes % Monocytes % Eosinophils % Basophils % Absolute Neutrophils Absolute Lymphocytes Absolute Monocytes Absolute Eosinophils Absolute Basophils PT 10.4 INR 1.0 APTT 26.5 Sodium Potassium Chloride Carbon Dioxide Anion Gap BUN Creatinine Estimated GFR/1.73 m2 Glucose Calcium Total Bilirubin AST ALT Alkaline Phosphatase Total Protein Albumin Patient ABO/Rh Antibody Screen Imaging Chest x-ray: pending Additional studies: Reactive leukocytosis. Pending new hemoglobin A1c. Elevated glucose. Elevated alkaline phosphatase. Normal coagulation factors and no acute or chronic anemia. Imaging Studies: Right femur, knee, tib-fib, ankle x-rays and reports independently reviewed: Significant for distal femur supracondylar mildly displaced periprosthetic fracture. Fracture line starts at likely notched anterior distal femur. No signs of loosening. Slight flexion of the knee replacement distal femur. Bimalleolar minimally displaced Pritchett C ankle fracture. Maintained ankle mortise. No loss of tib-fib overlap. No syndesmotic widening. No increased medial clear space. CT right distal femur and knee reported imaging and bone interpreted: Intact prior knee replacement. Only barely 2 cm of bone proximal to knee replacement on the medial side. 5 cm laterally. Comminution posteriorly.
[2020-03-16] MEDS: MORPHine 2 MG/ML SYR (13:33)
--- NOTE | 2020-03-16 13:57 | W.PM.HP.N ---
Date of service: 03/16/20 Time of Service: 13:57 Assessment and Plan Assessment and plan (1) Periprosthetic fracture around internal prosthetic right knee joint, initial encounter: Start date: 03/16/20 Start time: 14:12 Status: Acute Assessment and plan: 74 y.o female with fx to right femur and ankle after tripping over puppy pads. She received fentynal in the field, ortho consulted. She will be on IV tylenol and morphine for pain at this time, she does have residual weakness and loss of sensation to her right lower extremity, she does state she struck her head falling down and has history of bleeding will order CT r/o bleed after fall IVF NPO after MN for OR in am with Dr. Abrahan Ashby and bedrest. CXR pending EKG without ischemia, ectopy (2) Bimalleolar fracture of right ankle: Start date: 03/16/20 Start time: 14:22 Status: Acute Assessment and plan: see above Qualifiers: Encounter type: initial encounter Fracture type: closed Qualified Code(s): S82.841A - Displaced bimalleolar fracture of right lower leg, initial encounter for closed fracture (3) Status post total knee replacement, right: Start date: 03/16/20 Start time: 14:22 Status: Acute Assessment and plan: TKA with Dr. Monge in 2019, (4) Diabetes mellitus: Start date: 03/16/20 Start time: 14:23 Status: Chronic Assessment and plan: Last A1C in july 6.9, noninsulin dependent. Will hold po meds and start on SSI, sensitive. Repeat A1c (5) COPD without exacerbation: Start date: 03/16/20 Start time: 14:24 Status: Acute Assessment and plan: Does not require oxygen, lungs clear at this time. Continue albuterol inhaler as per home use. (6) Hypertension: Start date: 03/16/20 Start time: 14:25 Status: Chronic Assessment and plan: Normotensive at this time. Continue home regimen lisinopril 20 mg BID (7) CVA (cerebral vascular accident): Start date: 03/16/20 Start time: 14:26 Status: Chronic Assessment and plan: History of CVA in past x 3 with what sounds like to be ruptured anerysum. Will give heparin for DVT prophylaxis, will obtain CT of head from fall. and monitor for any changes in mental status. AAOx 3. (8) Neuropathy: Start date: 03/16/20 Start time: 14:27 Status: Acute Assessment and plan: To right lower extremity and bilateral feet. She does take gabapentin BID even though it is listed in allergies. Will continue here. Above case discussed with Dr. Munoz who is in agreement. History of Present Illness History of Present Illness Chief Complaint: Ankle fx, femur fx. Narrative: 74-year-old female status post mechanical trip and fall at home earlier today. Sudden onset right ankle pain and deformity. Also moderate right knee pain. History right knee replacement in January [address] Monge here at [facility], CVA with aneurysm,leaving right side weaker, DM not insulin dependent, COPD non oxygen dependent and GI bleed, HTN, brought to Emergency room for evaluation. Found to have periprosthetic right distal femur fracture and bimalleolar ankle fracture both on the right side. Denies any pre-existing right ankle or right knee symptoms. Denies any right knee swelling redness drainage warmth or mechanical symptoms. Labs in ED unremarkable except elevated WBC likely from trauma. She was asked to be admitted to hospitalist service for further management. Ortho consulted. We will manage her pain with IV medications at this time, heparin pre-op. NPO after MN for OR in am with Dr. Gauthier. She denies CP, SOB, N/V/D. Review of Systems All systems reviewed & are unremarkable except as noted in HPI and below PFSH Medical History Arthritis of knee, right (Resolved) CVA (cerebral vascular accident) (Chronic) Diabetes mellitus (Chronic) checks am blood sugars typically in 150-180 range last a1c 7.1 GI bleed (Chronic) Gout (Chronic) Hiatal hernia (Chronic) History of depression (Chronic) meds in past presently on no rx for depression Hypertension (Chronic) TIM (obstructive sleep apnea) (Chronic) has used cpap in past presently not using Osteoarthritis (Chronic) Surgical History History of appendectomy (Chronic) History of arthroscopic knee surgery (Chronic) History of colonoscopy (Chronic) History of hysterectomy (Chronic) Family History Father Heart disease Social History Smoking/Tobacco Use Status: Never Alcohol Intake: never Drug use: Never Do you feel safe at home: Yes Do you feel safe in your relationship?: Yes Additional Social history: Meds Home Medications and Allergies Home Medications Medication Instructions Recorded Confirmed Type cyanocobalamin (vitamin B-12) 500 500 mcg PO DAILY 07/11/18 03/16/20 History mcg tablet labetalol 200 mg tablet 100 mg PO BID 07/11/18 03/16/20 History lisinopril 20 mg tablet 20 mg PO BID tab 07/11/18 03/16/20 History multivitamin 1 tab PO DAILY 07/11/18 03/16/20 History gabapentin 300 mg capsule 300 mg PO BID #60 cap 05/03/19 03/16/20 Rx albuterol sulfate 2 puff INHALATION Q6H PRN 06/18/19 03/16/20 History albuterol sulfate [Ventolin HFA] 2 puff INHALATION Q6H PRN 06/18/19 03/16/20 History dapagliflozin [Farxiga] 10 mg PO 5XW 03/16/20 03/16/20 History Allergies Allergy/AdvReac Type Severity Reaction Status Date / Time aspirin Allergy Severe GI Bleed Verified 03/16/20 09:22 ibuprofen [From Motrin] Allergy Severe GI Bleed Verified 03/16/20 09:22 Tetracyclines Allergy Severe Makes my Verified 03/16/20 09:22 skin peel and throat close up acetaminophen [From Percocet] Allergy Intermediate Pt states Verified 03/16/20 09:22 she can take acetaminophen buspirone Allergy Unknown Verified 03/16/20 09:22 codeine Allergy Unknown Verified 03/16/20 09:22 pentazocine [From Talwin] Allergy Unknown Verified 03/16/20 09:22 sulfamethoxazole Allergy Unknown Verified 03/16/20 09:22 [From Bactrim] trimethoprim [From Bactrim] Allergy Unknown Verified 03/16/20 09:22 ciprofloxacin [From Cipro] AdvReac Severe made my Verified 03/16/20 09:22 stomach bleed duloxetine [From Cymbalta] AdvReac Severe made me Verified 03/16/20 09:22 sick and suicidal gabapentin AdvReac Severe Makes me Verified 03/16/20 09:22 want to commit suicide prednisone AdvReac Severe Raises BP Verified 03/16/20 09:22 and blood sugar per Pt tramadol AdvReac Severe major GI Verified 03/16/20 09:22 upset oxycodone [From Percocet] AdvReac Unknown Verified 03/16/20 09:22 propoxyphene AdvReac Unknown Verified 03/16/20 09:22 [From Darvocet-N] Exam Narrative Exam Narrative: Const: Pleasant female laying in bed, appears comfortable. [place] on right side. AAOx3. She does endorse her right side is weaker since her stroke. HENMT: No JVD, goiter, MMM Eyes: Perrla, EOMI Neck: no lymphedema, symmetric, did not palpate thyroid Chest: symmetrical, atraumatic Resp: even unlabored resp. LSC bilateral, diminished in bases anteriorly, did not listen posteriorly as patient was comfortable in position she was in Cardio: Regular Rate and Rhythm, no murmur heard at this time, she does endorse murmur, no ectopic beats GI: abd soft nontender, Bsx4 : deferred Back/spine/pelvis: no cva tenderness on palpation, did not inspect due to position and comfort Neuro: AAOx 3, loss of sensation to RLE, with neuropathy to feet Exterm: RLE externally rotated, ankle with deformity and bruising, LLE no clubbing, edema or cyanosis Psych: mood appropriate Results Labs Result diagrams: 03/16/20 10:40 03/16/20 10:40 Labs: Laboratory Results - last 24 hr 03/16/20 03/16/20 03/16/20 10:40 10:40 10:40 WBC 11.48 H RBC 5.12 Hgb 15.2 Hct 46.3 H MCV 90.4 MCH 29.7 MCHC 32.8 RDW 13.8 Plt Count 216 MPV 9.9 Immature Gran % 0.3 Neutrophils % 80.6 Lymphocytes % 13.2 Monocytes % 4.3 Eosinophils % 1.1 Basophils % 0.5 Absolute Neutrophils 9.25 H Absolute Lymphocytes 1.52 Absolute Monocytes 0.49 Absolute Eosinophils 0.13 Absolute Basophils 0.06 PT INR APTT Sodium 139 Potassium 3.9 Chloride 101 Carbon Dioxide 27.6 Anion Gap 10.4 BUN 12 Creatinine 0.74 Estimated GFR/1.73 m2 >= 60.00 Glucose 188 H Calcium 9.3 Total Bilirubin 0.7 AST 23 ALT 28 Alkaline Phosphatase 123 H Total Protein 7.8 Albumin 4.3 Patient ABO/Rh AB Positive Antibody Screen Negative 03/16/20 10:40 WBC RBC Hgb Hct MCV MCH MCHC RDW Plt Count MPV Immature Gran % Neutrophils % Lymphocytes % Monocytes % Eosinophils % Basophils % Absolute Neutrophils Absolute Lymphocytes Absolute Monocytes Absolute Eosinophils Absolute Basophils PT 10.4 INR 1.0 APTT 26.5 Sodium Potassium Chloride Carbon Dioxide Anion Gap BUN Creatinine Estimated GFR/1.73 m2 Glucose Calcium Total Bilirubin AST ALT Alkaline Phosphatase Total Protein Albumin Patient ABO/Rh Antibody Screen Last Vital Signs Temp 36.7 C 03/16/20 13:14 Pulse 90 03/16/20 13:14 Resp 16 03/16/20 13:14 BP 135/82 03/16/20 13:14 Pulse Ox 95 03/16/20 13:14 COVID-19 Screening In the past 14 days, have you traveled outside of [place] or [place]?: YES Had IN PERSON contact w/suspected or confirmed C-19 person: No
[2020-03-16] MEDS: ACETAMINOPHEN 1,000 MG/100 ML BTL 400 MG (14:01)
[2020-03-16 14:22] LABS: Bilirubin Negative (Negative); Blood Trace-intact (Negative); Clarity Clear (Clear); Glucose 500 mg/dL (Negative); Ketones Negative (Negative); Leukocyte Esterase Negative (Negative); Nitrite Negative (Negative); Urobilinogen 0.2 EU/dL (Up TO 0.2)
[2020-03-16 14:30] LABS: Bacteria Negative HPF (Negative); C & S Indicated? No; Casts Negative LPF (Negative); Crystals Negative HPF (Negative); Epithelial Cells Rare HPF (Negative); Mucus Negative (Negative); WBC 0-2 HPF (0-5)
[2020-03-16] MEDS: MORPHine 2 MG/ML SYR IVP (14:55)
--- NOTE | 2020-03-16 15:24 | DI.VRAD_ITS ---
PROCEDURE INFORMATION: Exam: CT Head Without Contrast Exam date and time: 03/16/2020 3:08 PM Age: 74 years old Clinical indication: Other: Fall TECHNIQUE: Imaging protocol: Computed tomography of the head without contrast. COMPARISON: No relevant prior studies available. FINDINGS: Brain: No acute intracranial hemorrhage . There is mild diffuse heterogeneity of the white matter attenuation, consistent with chronic white matter ischemic changes. There are multiple small hypodensities in the basal ganglia, consistent with remote lacunar infarctions. Ventricles: Normal. No ventriculomegaly. Bones/joints: Benign hyperostosis frontalis is present.No acute fracture. Sinuses: Polyp or retention cyst in the left maxillary sinus Mastoid air cells: Visualized mastoid air cells are well aerated. Soft tissues: Unremarkable. IMPRESSION: No acute intracranial hemorrhage . Dictated and Authenticated by: Palmer Smith MD. Ordering:ZIGGY Oshea MD
--- NOTE | 2020-03-16 15:26 | DI.VRAD_ITS ---
PROCEDURE INFORMATION: Exam: XR Chest, 2 Views Exam date and time: 03/16/2020 3:14 PM Age: 74 years old Clinical indication: Other: Fall TECHNIQUE: Imaging protocol: XR of the chest Views: 2 views. COMPARISON: CR XR CHEST 2V PA LATERAL 06/18/2019 12:55 PM FINDINGS: Lungs: No focal consolidation. Pleural space: Unremarkable. No pleural effusion. No pneumothorax. Heart/Mediastinum: A prominent right hilar region was present in June 2019. Recommend chest CT if further evaluation of this region is warranted.. Vasculature: Tortuous aorta Bones/joints: Unremarkable. IMPRESSION: 1. A prominent right hilar region was present in June 2019. Recommend chest CT if further evaluation of this region is warranted.. 2. No focal consolidation. Dictated and Authenticated by: Palmer Smith MD. Ordering:COMFORT Lopez MD
[2020-03-16] MEDS: Heparin 5,000 UNITS/ML VIAL 5000 UNITS SC ×2 (15:37→21:54)
[2020-03-16] MEDS: Labetalol 100 MG TAB PO (20:25)
[2020-03-16] MEDS: Lisinopril 20 MG TAB PO (20:25)
[2020-03-16] MEDS: Gabapentin 300 MG CAP PO (20:26)
[2020-03-17] VITALS (14 sets, daily range): BP systolic 114–163; BP diastolic 69–90; PULSE 63–96; RESP 14–20; TEMP 36.5–37.2; O2SAT 89–98
[2020-03-17] MEDS: Normal Saline Flush 10 ML SYR IVP (03:39)
[2020-03-17] MEDS: Albuterol HFA 8 GM 60 PUFF INH IH (04:17)
[2020-03-17] MEDS: Lactated Ringers 1,000 ML 200 ML IV (04:26)
[2020-03-17] MEDS: Labetalol 100 MG TAB PO ×2 (07:53→20:11)
[2020-03-17 08:11] LABS: HCT 40.5 % (36.0-46.0); HGB 12.9 g/dL (12.0-15.5); Mean Corp. HGB Concentration 31.9 g/dL (32.0-36.0); Mean Corpuscular Hemoglobin 29.3 pg (27.0-33.0); Platelet Count 187 x1000/uL (130-400); RBC Distribution Width 14.1 % (11.7-14.6)
[2020-03-17 08:30] LABS: Hemoglobin A1C 7.4 % (3.8-5.6)
[2020-03-17 08:52] LABS: BUN 9 mg/dL (7-18); CREATININE 0.54 mg/dL (0.55-1.02); Calcium 8.5 mg/dL (8.5-10.1); Chloride 103 mmol/L (98-107); Glucose 160 mg/dL (74-106); Magnesium 1.9 mg/dL (1.8-2.4); Sodium 140 mmol/L (136-145)
[2020-03-17] MEDS: Normal Saline 1,000 ML 125 ML IV (09:08)
--- NOTE | 2020-03-17 09:09 | W.PM.PROGNOT ---
Date of Service Date of service: 03/17/20 Time of Service: 09:09 Assessment and Plan Assessment and plan (1) Periprosthetic fracture around internal prosthetic right knee joint, initial encounter: Start date: 03/17/20 Start time: 10:58 Status: Acute Assessment and plan: Patient to OR with Dr. Gauthier Post op she will need pain management, bowel management, ICS, PT (2) Bimalleolar fracture of right ankle: Start date: 03/17/20 Start time: 10:59 Status: Acute Assessment and plan: see above Qualifiers: Encounter type: initial encounter Fracture type: closed Qualified Code(s): S82.841A - Displaced bimalleolar fracture of right lower leg, initial encounter for closed fracture (3) Status post total knee replacement, right: Start date: 03/17/20 Start time: 10:59 Status: Acute Assessment and plan: TKA with Dr. Monge in 2019, (4) Diabetes mellitus: Start date: 03/17/20 Start time: 10:59 Status: Chronic Assessment and plan: A1c 7.4, will continue SSI while in the hospital, Controlled at this time. Continue to monitor fingersticks. (5) COPD without exacerbation: Start date: 03/17/20 Start time: 11:00 Status: Acute Assessment and plan: Does not require oxygen, lungs clear at this time. Continue albuterol inhaler as per home use. (6) Hypertension: Start date: 03/17/20 Start time: 11:00 Status: Chronic Assessment and plan: Hypertensive, likely in setting of severe pain, will manage with home medication and pain management. 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 Will give heparin for DVT prophylaxis, will obtain CT of head from fall. and monitor for any changes in mental status. AAOx 3. (8) Neuropathy: Start date: 03/17/20 Start time: 11:01 Status: Acute Assessment and plan: To right lower extremity and bilateral feet. She does take gabapentin BID even though it is listed in allergies. Will continue here. Above case discussed with Dr. Munoz who is in agreement. Subjective Subjective Patient reports: still having pain Interval history since last seen: Ms. Vega c/o severe pain overnight, she is going to OR this am with Dr. Gauthier. Will reassess pain post op, no other complaints Exam Narrative Exam Narrative: Const: Pleasant female laying in bed. [place] on right side. AAOx3. She does endorse her right side is weaker since her stroke. HENMT: No JVD, goiter, MMM Eyes: Perr[place], EOMI Neck: no lymphedema, symmetric, did not palpate thyroid Chest: symmetrical, atraumatic Resp: even unlabored resp. LSC bilateral, diminished in bases anteriorly, did not listen posteriorly as patient was comfortable in position she was in Cardio: Regular Rate and Rhythm, no murmur heard at this time, she does endorse murmur, no ectopic beats GI: abd soft nontender, Bsx4 : deferred Back/spine/pelvis: no cva tenderness on palpation, did not inspect due to position and comfort Neuro: AAOx 3, loss of sensation to RLE, with neuropathy to feet Exterm: RLE externally rotated, ankle with deformity and bruising, LLE no clubbing, edema or cyanosis Psych: mood appropriate Objective Objective Clinical Data: Abnormal lab results 03/16/20 03/16/20 03/16/20 Range/Units 10:40 10:40 14:11 WBC 11.48 H (4.4-10.8) k/cumm Hct 46.3 H (36.0-46.0) % MCHC (32.0-36.0) g/dL Absolute Neutrophils 9.25 H (1.2-6.7) k/cumm Creatinine (0.55-1.02) mg/dL Glucose 188 H (74-106) mg/dL Hemoglobin A1c (3.8-5.6) % Alkaline Phosphatase 123 H (46-116) U/L Urine Blood Trace-intact H (Negative) Urine RBC 3-5 H (0-2) HPF Urine Glucose 500 H (Negative) mg/dL 03/17/20 03/17/20 03/17/20 Range/Units 08:00 08:00 08:00 WBC (4.4-10.8) k/cumm Hct (36.0-46.0) % MCHC 31.9 L (32.0-36.0) g/dL Absolute Neutrophils (1.2-6.7) k/cumm Creatinine 0.54 L (0.55-1.02) mg/dL Glucose 160 H (74-106) mg/dL Hemoglobin A1c 7.4 H (3.8-5.6) % Alkaline Phosphatase (46-116) U/L Urine Blood (Negative) Urine RBC (0-2) HPF Urine Glucose (Negative) mg/dL Vital Signs Temperature 37.2 C 03/17/20 08:04 Temperature Source Tympanic 03/17/20 08:04 Pulse 88 03/17/20 08:04 Pulse Rhythm Regular 03/17/20 07:30 Respiratory Rate 16 03/17/20 08:04 Respiratory Effort Non-Labored 03/17/20 07:30 Respiratory Depth Normal 03/17/20 07:30 Respiratory Pattern Normal 03/17/20 07:30 Blood Pressure 163/90 H 03/17/20 08:04 Blood Pressure Mean 88 03/16/20 13:00 Blood Pressure Position Sitting 03/16/20 09:15 Pulse Oximetry 94 L 03/17/20 08:04 Oxygen Delivery Method Room Air 03/17/20 08:04 Oxygen Flow Rate 0 03/17/20 08:04 Pain Level 8 03/17/20 08:04 Intake & Output 03/16/20 03/16/20 03/17/20 11:59 23:59 11:59 Intake Total 890 / 890 940 / 940 Output Total 2049 600 / 600 Balance -1160 / -1160 340 / 340 Weight 90.718 kg 90.718 kg Intake: IV 650 / 650 940 / 940 Oral 240 / 240 Output: Urine 2049 600 / 600 Other: Urine Color Yellow Yellow Urine Appearance Clear Clear Laboratory Results WBC 9.80 k/cumm (4.4-10.8) 03/17/20 08:00 RBC 4.40 m/cumm (4.00-5.20) 03/17/20 08:00 Hgb 12.9 g/dL (12.0-15.5) D 03/17/20 08:00 Hct 40.5 % (36.0-46.0) 03/17/20 08:00 MCV 92.0 fL (80-95) 03/17/20 08:00 MCH 29.3 pg (27.0-33.0) 03/17/20 08:00 MCHC 31.9 g/dL (32.0-36.0) L 03/17/20 08:00 RDW 14.1 % (11.7-14.6) 03/17/20 08:00 Plt Count 187 x1000/uL (130-400) 03/17/20 08:00 MPV 10.0 fL (8.0-11.0) 03/17/20 08:00 Immature Gran % 0.3 % 03/16/20 10:40 Neutrophils % 80.6 03/16/20 10:40 Lymphocytes % 13.2 03/16/20 10:40 Monocytes % 4.3 03/16/20 10:40 Eosinophils % 1.1 03/16/20 10:40 Basophils % 0.5 03/16/20 10:40 Absolute Neutrophils 9.25 k/cumm (1.2-6.7) H 03/16/20 10:40 Absolute Lymphocytes 1.52 k/cumm (1.2-3.4) 03/16/20 10:40 Absolute Monocytes 0.49 k/cumm (0.11-0.7) 03/16/20 10:40 Absolute Eosinophils 0.13 k/cumm (0.0-0.7) 03/16/20 10:40 Absolute Basophils 0.06 k/cumm (0.0-0.2) 03/16/20 10:40 PT 10.4 sec (9.3-11.0) 03/16/20 10:40 INR 1.0 (0.9-1.1) 03/16/20 10:40 APTT 26.5 sec (21.0-31.4) 03/16/20 10:40 Sodium 140 mmol/L (136-145) 03/17/20 08:00 Potassium 4.0 mmol/L (3.5-5.1) 03/17/20 08:00 Chloride 103 mmol/L (98-107) 03/17/20 08:00 Carbon Dioxide 28.0 mmol/L (21.0-32.0) 03/17/20 08:00 Anion Gap 9.0 mmol/L (3-11) 03/17/20 08:00 BUN 9 mg/dL (7-18) 03/17/20 08:00 Creatinine 0.54 mg/dL (0.55-1.02) L 03/17/20 08:00 Estimated GFR/1.73 m2 >= 60.00 (mL/min/1.73m2) 03/17/20 08:00 Glucose 160 mg/dL (74-106) H 03/17/20 08:00 Hemoglobin A1c 7.4 % (3.8-5.6) H 03/17/20 08:00 Calcium 8.5 mg/dL (8.5-10.1) 03/17/20 08:00 Magnesium 1.9 mg/dL (1.8-2.4) 03/17/20 08:00 Total Bilirubin 0.7 mg/dL (0.2-1.0) 03/16/20 10:40 AST 23 U/L (15-37) 03/16/20 10:40 ALT 28 U/L (14-59) 03/16/20 10:40 Alkaline Phosphatase 123 U/L (46-116) H 03/16/20 10:40 Total Protein 7.8 g/dL (6.4-8.2) 03/16/20 10:40 Albumin 4.3 g/dL (3.4-5.0) 03/16/20 10:40 Urine Color Yellow (Yellow) 03/16/20 14:11 Urine Clarity Clear (Clear) 03/16/20 14:11 Urine pH 5.0 (5-8) 03/16/20 14:11 Ur Specific [place] 1.020 (1.005-1.025) 03/16/20 14:11 Urine Protein Negative mg/dL (Negative) 03/16/20 14:11 Urine Ketones Negative mg/dL (Negative) 03/16/20 14:11 Urine Blood Trace-intact (Negative) H 03/16/20 14:11 Urine Nitrite Negative (Negative) 03/16/20 14:11 Urine Bilirubin Negative (Negative) 03/16/20 14:11 Urine Urobilinogen 0.2 EU/dL (Up TO 0.2) 03/16/20 14:11 Ur Leukocyte Esterase Negative (Negative) 03/16/20 14:11 Urine RBC 3-5 HPF (0-2) H 03/16/20 14:11 Urine WBC 0-2 HPF (0-5) 03/16/20 14:11 Ur Epithelial Cells Rare HPF (Negative) 03/16/20 14:11 Urine Crystals Negative HPF (Negative) 03/16/20 14:11 Urine Bacteria Negative HPF (Negative) 03/16/20 14:11 Urine Casts Negative LPF (Negative) 03/16/20 14:11 Urine Mucus Negative (Negative) 03/16/20 14:11 Ur Culture Indicated? No 03/16/20 14:11 Urine Glucose 500 mg/dL (Negative) H 03/16/20 14:11 Patient ABO/Rh AB Positive 03/16/20 10:40 Antibody Screen Negative 03/16/20 10:40
[2020-03-17] MEDS: Lactated Ringers 1,000 ML 30 ML IV (10:40)
[2020-03-17 11:23] LABS: Vitamin D 25 Total 21.8 ng/ml (30-100)
[2020-03-17] MEDS: Tranexamic Acid 1,000 MG/10 ML VIAL 1000 MG (11:25)
[2020-03-17 11:59] LABS: COVID-19 RT-PCR UVMMC Result Negative (Negative)
--- NOTE | 2020-03-17 12:01 | INITIAL_ITS ---
- If Service Date Differs Date of service: 03/17/20 Time of Service: 12:01 Care Management Initial Assess REASON FOR HOSPITALIZATION:: Periprosthetic fracture, bimalleolar fracture of the righr ankle. PAST MEDICAL HISTORY/PAST SURGICAL HISTORY:: Arthritis of knee, right (Acute). History of depression (Chronic). CVA (cerebral vascular accident) (Chronic). Diabetes mellitus (Chronic). GI bleed (Chronic). Gout (Chronic). Hiatal hernia (Chronic). Hypertension (Chronic). TIM (obstructive sleep apnea) (Chronic). Osteoarthritis (Chronic). History of appendectomy (Chronic). History of arthroscopic knee surgery (Chronic). History of colonoscopy (C hronic). History of hysterectomy (Chronic) PREVIOUS FUNCTIONAL STATUS/SOCIAL/FAMILY SUPPORTS:: Ally resides with her SO Ramos in [facility] in a mobil home. Ramos assists with driving as Ally does not drive. Ally reports that Ramos has three children locally whom are supportive. Ally is from [place] and states that she has a brother and sister there whom are supportive. CURRENT FUNCTIONAL STATUS:: Ally is engaged during assessment she is preparing to be brought to the OR during assessment. CM will follow up with her when she returns and her pain is well controlled. ADVANCE DIRECTIVES:: On file Ramos her SO is her agent Has patient been provided with info about the portal/API?: Yes Did the patient sign up for the portal?: No CODE STATUS:: Full Code INSURANCE COVERAGE / FINANCIAL ISSUES:: Medicare, [employer] CURRENT HOME/COMMUNITY SERVICES/EQUIPMENT:: No current services, anticipate she will need new home health services for nursing and PT when she is discharged. PRIMARY CARE PHYSICIAN:: Arron Caceres, [facility] POTENTIAL DISCHARGE NEEDS:: Follow up with orthopedic, and primary care as directed. New referral to home health for nursing and PT if indicated. PATIENT/FAMILY EDUCATION NEEDS:: Discharge education, limitations and follow up plan of care including ask me three and self management. ANTICIPATED BARRIERS TO DISCHARGE:: Pending recovery from surgery and ability to participate with PT to determine disposition TRANSPORTATION:: Via private car pending disposition PLAN:: Ally is having surgical repair today. Anticipate [facility] and with [facility] health services. CM will continue to assess for anticiapted discharge needs.
--- NOTE | 2020-03-17 14:00 | DI.RAD_ITS ---
EXAM: XR FEMUR RT CLINICAL HISTORY: RIGHT FEMUR FX. TECHNIQUE: 2D and realtime digital imaging was performed. COMPARISON: CR,XR XR KNEE RT 2V AP,LAT from 03/16/2020 FINDINGS: Fluoroscopy was provided in the OR. Hard copy images show placement of a fixation plate along the l ateral aspect of the mid through distal femur for fracture fixation. Fluoro time: 238.2 seconds RADIATION DOSE DELIVERED:
--- NOTE | 2020-03-17 15:18 | DI.RAD_ITS ---
EXAM: XR ANKLE RT 2V CLINICAL HISTORY: RIGHT ANKLE FX. TECHNIQUE: 2D and realtime digital imaging was performed. COMPARISON: No exams were available for comparison FINDINGS: Fluoroscopy was provided in the OR. Hard copy images show placement of 2 screws through the medial malleolus and a lateral malleolar fixation plate with mortise screws. The ankle mortise appears norm ally aligned. Fluoro Time: 95.5 seconds RADIATION DOSE DELIVERED:
[2020-03-17] MEDS: Hydrogen Peroxide 3% 480 ML BTL (15:36)
--- NOTE | 2020-03-17 15:58 | PHACLINREV_ITS ---
Pharmacy Admission Review - Admission Clinical Review (Last Reviewed 03/16/20 @ 14:05 by Dorie Colin NP) Neuropathy (Acute) COPD without exacerbation (Acute) Periprosthetic fracture around internal prosthetic right knee joint, initial encounter (Acute 03/16/20) Bimalleolar fracture of right ankle (Acute 03/16/20) Status post total knee replacement, right (Acute 02/05/19) aspirin Allergy (Severe, Verified 03/16/20 09:22) GI Bleed ibuprofen [From Motrin] Allergy (Severe, Verified 03/16/20 09:22) GI Bleed Tetracyclines Allergy (Severe, Verified 03/16/20 09:22) Makes my skin peel and throat close up acetaminophen [From Percocet] Allergy (Intermediate, Verified 03/16/20 09:22) Pt states she can take acetaminophen buspirone Allergy (Unknown, Verified 03/16/20 09:22) codeine Allergy (Unknown, Verified 03/16/20 09:22) pentazocine [From Talwin] Allergy (Unknown, Verified 03/16/20 09:22) sulfamethoxazole [From Bactrim] Allergy (Unknown, Verified 03/16/20 09:22) trimethoprim [From Bactrim] Allergy (Unknown, Verified 03/16/20 09:22) ciprofloxacin [From Cipro] Adverse Reaction (Severe, Verified 03/16/20 09:22) made my stomach bleed duloxetine [From Cymbalta] Adverse Reaction (Severe, Verified 03/16/20 09:22) made me sick and suicidal gabapentin Adverse Reaction (Severe, Verified 03/16/20 09:22) Makes me want to commit suicide prednisone Adverse Reaction (Severe, Verified 03/16/20 09:22) Raises BP and blood sugar per Pt tramadol Adverse Reaction (Severe, Verified 03/16/20 09:22) major GI upset oxycodone [From Percocet] Adverse Reaction (Unknown, Verified 03/16/20 09:22) propoxyphene [From Darvocet-N] Adverse Reaction (Unknown, Verified 03/16/20 09:22) Height 5 ft 9 in Weight 90.718 kg - Renal Dosing Renal Dosing: BUN 9 mg/dL (7-18) 03/17/20 08:00 Creatinine 0.54 mg/dL (0.55-1.02) L 03/17/20 08:00 Medications needing adjustments: Reviewed (Crcl ~63.49 mL/min current meds okay) - Anticoagulation Anticoagulation: Hgb 12.9 g/dL (12.0-15.5) D 03/17/20 08:00 Hct 40.5 % (36.0-46.0) 03/17/20 08:00 Plt Count 187 x1000/uL (130-400) 03/17/20 08:00 INR 1.0 (0.9-1.1) 03/16/20 10:40 Creatinine 0.54 mg/dL (0.55-1.02) L 03/17/20 08:00 DVT Prohphylaxis: Reviewed (discontinued last night, watch for restart postop) Therapeutic Anticoagulation: N/A - Opiate Usage Evaluate Pain Scale/Pains Meds: Reviewed Scheduled Bowel Reg ordered if on Opiates?: No (has PRN meds ordered) - Relevant Labs Sodium 140 mmol/L (136-145) 03/17/20 08:00 Potassium 4.0 mmol/L (3.5-5.1) 03/17/20 08:00 Chloride 103 mmol/L (98-107) 03/17/20 08:00 Magnesium 1.9 mg/dL (1.8-2.4) 03/17/20 08:00 Electrolytes, C-Reactive P, ESR: Reviewed - DM Control DM Control: Glucose 160 mg/dL (74-106) H 03/17/20 08:00 Hemoglobin A1c 7.4 % (3.8-5.6) H 03/17/20 08:00 Finger Stick Blood Glucose 162 Insulin Dosing: Reviewed (sliding scale aspart ordered) - Heart Failure/FL EF%, ANNETTE's, B-Blockers, Diuretics: N/A - BP Control BP Control: Blood Pressure 163/90 Blood Pressure 150/77 If elevated: Reviewed (has meds ordered, continued to watch) - Qtc Review If Elevated: N/A (QTc 448) - IV to PO Switch IV Medications: N/A - Home Meds Home Med List reviewed: Reviewed (labetalol may decrease the bronchodilatory effect of albuterol. It's recommended to avoid use together. If used concomitantly monitor closely for diminished bronchodilatory effects of albute rol.) Relevent Home Meds Not ordered & why?: dapagliflozin - Current meds Current Medication Order Review: Reviewed (watch for d/c of PACU meds) - Comments Comments/Follow Ups: watch BP, for restart of anticoagulation postop and for other med changes.
--- NOTE | 2020-03-17 16:29 | ROE_ITS ---
Date of service: 03/17/20 Time of Service: 16:30 Operative Note Operative Note DATE OF PROCEDURE: 03/17/20 PRE-OP DIAGNOSIS: 1. Right distal femur periprosthetic fracture 2. Right bimalleolar ankle fracture POST-OP DIAGNOSIS: same PROCEDURE: 1. Right distal femur ORIF, CPT# 11347 2. Right bimalleolar ankle ORIF, CPT# 64139 SURGEON: Peng Gauthier TRANSPLANT CASE MANAGER: Bella Gallegos ANESTHESIA: GETA and regional ESTIMATED BLOOD LOSS: 200 TOURNIQUET TIME: 0 COMPLICATIONS: None Patient was transported to: PACU Patient's condition: stable Implants: Synthes 4.5 mm variable angle LCP curved condylar plate system: 10- hole plate, 12x 5.0 mm solid locking screws Synthes 1/3 tubular locking plate and small frag sytem: 10-hole plate, 2x 3.5 mm locking screws, 4x 3.5 mm cortex screws, 1x 4.0 mm cancellous screw, 2x partially threaded 4.0 mm cancellous screws Indications: Please see complete medical record for details. Findings: Significantly soft and weakened distal femur and ankle bones Procedure Description: In the operating room, general and regional anesthesia were induced. The patient was positioned supine on the operating room table. All bony prominences were well-padded. Preoperative antibiotics were administered. 1 g of tranexamic acid was administered. The right lower extremity was prepped and draped in the usual sterile fashion. The correct patient, procedure, and side of the procedure were all verified prior to incision. The leg was positioned on a bone foam ramp. Provisional AP and lateral x-ray confirmed relative distal femur fracture reduction and stable knee replacement implant. A roll of blue towels was placed below the distal femur to reduce the pull of the gastrocnemius muscles. A lateral based incision over 7 centimeters lateral from the prior midline knee replacement and open knee surgery scars was made extending longitudinally from the lateral knee joint to the supracondylar region of the knee. The IT band was split sharply in line with its fibers. The lateral femur was exposed just to the anterior distal margins of the knee replacement hardware to the fracture site proximally. A Gilmore elevator was used to clear a path for the planned plate proximally along the lateral femur. Based on preoperative templating the appropriate 10 hole plate was assembled to its handle inserted into the distal incision and slid atraumatically up along the lateral femur taking care to maintain it along the bone and in line with the femur. The plate was positioned optimally relative to the exposed lateral femoral condyle taking into considerations the limitations of the knee replacement that was in place with a posterior stabilized box. C-arm fluoroscopy confirmed appropriate positioning distally. A wire was inserted distally to provisionally hold the plate in place. C arm fluoroscopy was brought more proximally and the plate was adjusted slightly to be optimally placed centrally on the lateral distal femur. Stab incision was made through the most proximal hole in the aiming guide followed by locking in the locking guide and a wire was inserted while the librarian assistant maintained traction and reduction forceps through the fracture site. AP and lateral fluoroscopy confirmed acceptable reduction of the fracture site and appropriate plate placement. The plate was sitting somewhat lateral to the lateral femoral cortex along the distal femur so another stab incision and locking guide was placed and a whirlybird used to bring the femur laterally to the plate and further reduce the fracture site. Now there was excellent reduction of the fracture site and the plate was compressed to bone proximally and distally. Starting distally 3 locking screws were inserted through the appropriate locking guides distal to the fracture site and across near the medial femoral condyle cortex. Stab incisions through the guide and locking guide were used proximally to drill and insert 3 proximal locking screws. The wires were removed proximally distally. The anterior and distalmost screw had to be directed away from the knee replacement as the drill encountered cement. The posterior distalmost screw was drilled and filled with a unicondylar screw as a drill into the box. Proximally, the proximalmost screw was filled with a unicortical locking screw and an additional screw was added for total of 5. At this time there were 5 screws most distally placed as well. The whirlybird was removed from the center of the construct and replaced with a locking screw. Fracture line was scrutinized and was felt an additional distal screw could fit just distal to the majority of the fracture line so was drilled inserted through the locking guide for 6 distalmost screw. The repair was inspected through range of motion and fluoroscopically and found to be stable. The knee was ranged from 0 to 90 degrees of flexion and demonstrated intact varus valgus stability. Final AP, lateral, and oblique fluoroscopy was used to confirm excellent fracture site reduction and appropriate hardware placement and screw lengths. This wound was copiously irrigated with normal saline followed by Aricept. Approximately two thirds of 1 g of vancomycin powder was distributed deep in the wound and about the plate. The IT band was closed using #1 Vicryl in a [id number] interrupted fashion. Superficial wound was copiously irrigated normal saline and a small amount of vancomycin powder was distributed amongst the wound. Subcutaneous tissues closed using 2-0 Monocryl in a buried interrupted fashion. The skin was covered with a dry sterile blue towel and attention was turned to the ankle as the patient was tolerating the procedure well and stable under anesthesia. The ankle was reprepped with ChloraPrep. Everyone changed gloves and a new sterile down she was placed under the extremity. C-arm fluoroscopy was used to localize the level of the segmental comminuted Pritchett C fracture. A lateral longitudinal incision was made extending a few centimeters above and distal to the fracture site. About the center of the fracture site just deep to the subcutaneous tissues the peroneal nerve was encountered. It was carefully dissected out from the remainder of the subcutaneous tissues about the central and distal aspects of the incision. It coursed from deep posterior along the posterior margin the incision and then crossed the fibula at the level of the syndesmosis and continued towards the anterior lateral ankle joint and presumably into the dorsal foot. The patient awoke from anesthesia without complication and was transferred to the recovery room in a stable condition. This nerve was carefully retracted posteriorly while working on the fracture site to expose fracture margins and obtain provisional reduction with bone-holding forceps. The fracture site was extremely soft and there was posterior comminution. A 10 hole one third tubular locking plate was selected and applied to the lateral fibula taking care to slide it under the nerve distally. The nerve cross from posterior obliquely to anterior between the third and fourth distalmost screw holes. The plate was centered laterally. C-arm fluoroscopy confirmed appropriate plate length. It was removed so that plate benders could apply a slight lateral and medial bend to accommodate the flare of the distal fibula. It was reapplied and center to the lateral fibula. 1 central distal cancellus screw was drilled and placed. Lateral fluoroscopy was used to confirm appropriate central placement of the plate on the proximal fibula. A cortex screw was then placed proximally while the cyst and maintain appropriate gentle traction on the extremity to restore the slight amount of length needed. A second cancellus screw was inserted distally followed by a second cortical screw proximally. AP and lateral fluoroscopy confirmed excellent fracture site reduction and appropriate hardware. The cancellus screws that had been set inserted distally had been drilled with minimal resistance and inserted with zero purchase owing to the patient's extremely poor bone quality. The third distalmost screw was then drilled while protecting the nerve quad cortical syndesmotic fashion in an attempt to obtain adequate fixation in the severely osteoporotic patient with diabetic neuropathy and CVA causing lack of protective sensation about the right lower extremity. An appropriate length cortical screw was inserted but failed to engage the far cortex. It was substituted for an appropriately length cancellus screw that had decent fixation strength. The fourth distalmost screw was then drilled in a similar syndesmotic quad cortical fashion while carefully protecting retracting the nerve distally. Unfortunately the ideal screw length was not available in order to avoid not engaging the fixation point on the femoral cortex a slightly longer screw was chosen and inserted and had good strength. Attention was then turned proximally and a third proximal most screw was predrilled with minimal resistance through the fibula so the drill was redirected and again drilled and a quad cortical fashion. Length cortex screw was inserted with good strength. The 2 distalmost cancellus screws that were spinning were substituted for matching locking screws and inserted and locked to the plate. Attention was then turned to the medial malleolus fracture. An anteriorly curved incision was made centered over the medial malleolus fracture. Careful dissection down to the medial malleolus did not encounter the saphenous nerve, vein or posterior tibial tendon. An attempt was made to provisionally clamped the medial malleolus and reduced position but similar to the lateral malleolus, the bone was too soft to accommodate a clamp. Instead, manual pressure was used to maintain reduction while the Bovie was used to gianna the start point for 2 medial malleolus screws. Under fluoroscopic guidance the more posterior screw was inserted taking care to scrutinize the path of the 2.5 mm drill to avoid joint penetration. There was minimal resistance to the drill. A 40 mm partially-threaded 4.0 mm cancellus screw was inserted. Its strength was rather weak. The clamp was then inserted and the head of the screw and proximally adjusted and maintain reduction. A second screw was drilled in a similar fashion and a 45 mm partially-threaded solid 4.0 mm cancellous screw was inserted in its place, this along with slightly better fixation strength. The clamp was removed. The ankle was was tested with external rotation stress under fluoroscopic guidance and fixation and ankle mortise found to be stable. Final AP and lateral fluoroscopy confirmed appropriate reduction of the ankle fracture sites and hardware placement. The medial and lateral ankle wounds were copious ly irrigated normal saline. The remainder of vancomycin powder was distributed majority lateral and some medially over the hardware. Subcutaneous tissue was closed in 2-0 Monocryl in a buried interrupted fashion. The skin was closed using 3-0 nylon in horizontal mattress fashion. The distal femur skin was closed using 3-0 nylon in horizontal mattress fashion. Xeroform was applied over all incisions followed by dry 4 x 4 gauze ABDs to the lateral femur and lateral ankle and wrapped in sterile soft roll. A plaster short leg splint containing stirrups and a footplate was then applied taking extreme care to protect the heel and ankle with appropriate padding. The foot up to the proximal thigh was then wrapped gently in an Mainor wrap. A knee immobilizer was placed about the knee over the dressing and splint. The patient awoke from anesthesia without complication was transferred the recovery room in stable condition.
--- NOTE | 2020-03-17 16:50 | PGE_ITS ---
Date of Service Date of service: 03/17/20 Time of Service: 16:23 Assessment and Plan Assessment and plan (1) Bimalleolar fracture of right ankle: Status: Acute Qualifiers: Encounter type: initial encounter Fracture type: closed Qualified Code(s): S82.841A - Displaced bimalleolar fracture of right lower leg, initial encounter for closed fracture (2) Periprosthetic fracture around internal prosthetic right knee joint, initial encounter: Status: Acute (3) Status post total knee replacement, right: Status: Acute Assessment and plan: 74-year-old female postop day #0 status post right distal femur ORIF and right ankle ORIF Complete 24 hours postoperative antibiotics Optimize medical diabetic glucose control and appreciate hydrogen treater's recommendations to optimize healing Right lower extremity protected weightbearing with assist device like walker Physical therapy. Okay to remove knee immobilizer while in bed and perform gentle knee passive and active range of motion. Out of bed. Must wear knee immobilizer while out of bed. Pain control- multimodal SCDs and FRENCH hose left lower extremity SQH for DVT prophylaxis starting 24 hours postoperative and after checking a.m. labs tomorrow Keep dressings in place and clean and dry until follow-up Anticipate discharge home in 1-2 nights with health services including physical therapy as needed Follow-up outpatient with Dr. Gauthier at [facility] orthopedics in 2-3 weeks Postoperative care discussed with primary medical team I will see the patient tomorrow morning Call me directly if any questions or concerns Subjective Subjective Interval history since last seen: No complaints. Resting comfortably in recovery room. Exam Narrative Exam Narrative: Sleepy. Easily arousable. No acute distress. Breathing nonlabored Right lower extremity: Dressing clean dry intact. Knee immobilizer in place. Short leg plaster splint in place. Distal toes neurovascularly and limited by preoperative nerve block. Demonstrates active motor toes All toes warm and well-perfused. Objective Objective Clinical Data: Abnormal lab results 03/17/20 03/17/20 03/17/20 Range/Units 08:00 08:00 08:00 MCHC 31.9 L (32.0-36.0) g/dL Creatinine 0.54 L (0.55-1.02) mg/dL Glucose 160 H (74-106) mg/dL Hemoglobin A1c 7.4 H (3.8-5.6) % 25-OH Vitamin D Total (30-100) ng/ml 03/17/20 Range/Units 08:00 MCHC (32.0-36.0) g/dL Creatinine (0.55-1.02) mg/dL Glucose (74-106) mg/dL Hemoglobin A1c (3.8-5.6) % 25-OH Vitamin D Total 21.8 L (30-100) ng/ml Vital Signs Temperature 99.0 F 03/17/20 08:04 Temperature Source Tympanic 03/17/20 08:04 Pulse 88 03/17/20 08:04 Pulse Rhythm Regular 03/17/20 07:30 Respiratory Rate 16 03/17/20 08:04 Respiratory Effort Non-Labored 03/17/20 07:30 Respiratory Depth Normal 03/17/20 07:30 Respiratory Pattern Normal 03/17/20 07:30 Blood Pressure 163/90 H 03/17/20 08:04 Blood Pressure Mean 88 03/16/20 13:00 Blood Pressure Position Sitting 03/16/20 09:15 Pulse Oximetry 94 L 03/17/20 08:04 Oxygen Delivery Method Room Air 03/17/20 08:04 Oxygen Flow Rate 0 03/17/20 08:04 Pain Level 8 03/17/20 08:04 Intake & Output 03/16/20 03/17/20 03/17/20 23:59 11:59 23:59 Intake Total 890 / 890 940 / 1840 900 / 1840 Output Total 2049 1000 / 1800 800 / 1800 Balance -1160 / -1160 -60 / 40 100 / 40 Weight 199 lb 15.983 oz Intake: IV 650 / 650 940 / 1840 900 / 1840 Oral 240 / 240 Output: Urine 2049 1000 / 1600 600 / 1600 Estimated Blood Loss 200 / 200 Other: Urine Color Yellow Yellow Light [place] Urine Appearance Clear Clear Clear Laboratory Results WBC 9.80 k/cumm (4.4-10.8) 03/17/20 08:00 RBC 4.40 m/cumm (4.00-5.20) 03/17/20 08:00 Hgb 12.9 g/dL (12.0-15.5) D 03/17/20 08:00 Hct 40.5 % (36.0-46.0) 03/17/20 08:00 MCV 92.0 fL (80-95) 03/17/20 08:00 MCH 29.3 pg (27.0-33.0) 03/17/20 08:00 MCHC 31.9 g/dL (32.0-36.0) L 03/17/20 08:00 RDW 14.1 % (11.7-14.6) 03/17/20 08:00 Plt Count 187 x1000/uL (130-400) 03/17/20 08:00 MPV 10.0 fL (8.0-11.0) 03/17/20 08:00 Immature Gran % 0.3 % 03/16/20 10:40 Neutrophils % 80.6 03/16/20 10:40 Lymphocytes % 13.2 03/16/20 10:40 Monocytes % 4.3 03/16/20 10:40 Eosinophils % 1.1 03/16/20 10:40 Basophils % 0.5 03/16/20 10:40 Absolute Neutrophils 9.25 k/cumm (1.2-6.7) H 03/16/20 10:40 Absolute Lymphocytes 1.52 k/cumm (1.2-3.4) 03/16/20 10:40 Absolute Monocytes 0.49 k/cumm (0.11-0.7) 03/16/20 10:40 Absolute Eosinophils 0.13 k/cumm (0.0-0.7) 03/16/20 10:40 Absolute Basophils 0.06 k/cumm (0.0-0.2) 03/16/20 10:40 PT 10.4 sec (9.3-11.0) 03/16/20 10:40 INR 1.0 (0.9-1.1) 03/16/20 10:40 APTT 26.5 sec (21.0-31.4) 03/16/20 10:40 Sodium 140 mmol/L (136-145) 03/17/20 08:00 Potassium 4.0 mmol/L (3.5-5.1) 03/17/20 08:00 Chloride 103 mmol/L (98-107) 03/17/20 08:00 Carbon Dioxide 28.0 mmol/L (21.0-32.0) 03/17/20 08:00 Anion Gap 9.0 mmol/L (3-11) 03/17/20 08:00 BUN 9 mg/dL (7-18) 03/17/20 08:00 Creatinine 0.54 mg/dL (0.55-1.02) L 03/17/20 08:00 Estimated GFR/1.73 m2 >= 60.00 (mL/min/1.73m2) 03/17/20 08:00 Glucose 160 mg/dL (74-106) H 03/17/20 08:00 Hemoglobin A1c 7.4 % (3.8-5.6) H 03/17/20 08:00 Calcium 8.5 mg/dL (8.5-10.1) 03/17/20 08:00 Magnesium 1.9 mg/dL (1.8-2.4) 03/17/20 08:00 Total Bilirubin 0.7 mg/dL (0.2-1.0) 03/16/20 10:40 AST 23 U/L (15-37) 03/16/20 10:40 ALT 28 U/L (14-59) 03/16/20 10:40 Alkaline Phosphatase 123 U/L (46-116) H 03/16/20 10:40 Total Protein 7.8 g/dL (6.4-8.2) 03/16/20 10:40 Albumin 4.3 g/dL (3.4-5.0) 03/16/20 10:40 25-OH Vitamin D Total 21.8 ng/ml (30-100) L 03/17/20 08:00 Urine Color Yellow (Yellow) 03/16/20 14:11 Urine Clarity Clear (Clear) 03/16/20 14:11 Urine pH 5.0 (5-8) 03/16/20 14:11 Ur Specific [place] 1.020 (1.005-1.025) 03/16/20 14:11 Urine Protein Negative mg/dL (Negative) 03/16/20 14:11 Urine Ketones Negative mg/dL (Negative) 03/16/20 14:11 Urine Blood Trace-intact (Negative) H 03/16/20 14:11 Urine Nitrite Negative (Negative) 03/16/20 14:11 Urine Bilirubin Negative (Negative) 03/16/20 14:11 Urine Urobilinogen 0.2 EU/dL (Up TO 0.2) 03/16/20 14:11 Ur Leukocyte Esterase Negative (Negative) 03/16/20 14:11 Urine RBC 3-5 HPF (0-2) H 03/16/20 14:11 Urine WBC 0-2 HPF (0-5) 03/16/20 14:11 Ur Epithelial Cells Rare HPF (Negative) 03/16/20 14:11 Urine Crystals Negative HPF (Negative) 03/16/20 14:11 Urine Bacteria Negative HPF (Negative) 03/16/20 14:11 Urine Casts Negative LPF (Negative) 03/16/20 14:11 Urine Mucus Negative (Negative) 03/16/20 14:11 Ur Culture Indicated? No 03/16/20 14:11 Urine Glucose 500 mg/dL (Negative) H 03/16/20 14:11 COVID-19 PCR Negative (Negative) 03/16/20 14:00 Nasopharyn COVID-19 PCR Not Applicable 03/16/20 14:00 Ref Test Perform Site [place] [facility] 03/16/20 14:00 Patient ABO/Rh AB Positive 03/16/20 10:40 Antibody Screen Negative 03/16/20 10:40
[2020-03-17] MEDS: Insulin Aspart 300 UNITS/3 ML PEN SC (17:36)
[2020-03-17] MEDS: Acetaminophen 500 MG TAB 1000 MG PO (20:11)
[2020-03-17] MEDS: Lisinopril 20 MG TAB PO (20:11)
[2020-03-17] MEDS: Gabapentin 300 MG CAP PO (20:11)
[2020-03-17] MEDS: Ascorbic Acid 500 MG TAB PO (20:12)
[2020-03-17] MEDS: ceFAZolin 1 GM/50 ML BAG IVPB (20:12)
[2020-03-18] VITALS (7 sets, daily range): BP systolic 126–151; BP diastolic 72–82; PULSE 69–95; RESP 12–20; TEMP 36.9–37.8; O2SAT 92–97
[2020-03-18] MEDS: Normal Saline 1,000 ML 125 ML IV ×3 (01:26→18:50)
[2020-03-18] MEDS: ceFAZolin 1 GM/50 ML BAG IVPB ×2 (03:49→12:37)
[2020-03-18 07:15] LABS: HGB 11.9 g/dL (12.0-15.5); Mean Corp. HGB Concentration 31.3 g/dL (32.0-36.0); Mean Corpuscular Volume 92.5 fL (80-95); Mean Platelet Volume 10.6 fL (8.0-11.0); Platelet Count 151 x1000/uL (130-400); RBC 4.11 m/cumm (4.00-5.20); RBC Distribution Width 13.6 % (11.7-14.6); White Blood Cell Count 12.17 k/cumm (4.4-10.8)
[2020-03-18 07:48] LABS: BUN 10 mg/dL (7-18); CREATININE 0.59 mg/dL (0.55-1.02); Calcium 8.4 mg/dL (8.5-10.1); Chloride 106 mmol/L (98-107); Glucose 158 mg/dL (74-106); Potassium 4.6 mmol/L (3.5-5.1); Sodium 142 mmol/L (136-145)
[2020-03-18] MEDS: Acetaminophen 500 MG TAB 1000 MG PO ×3 (07:57→20:13)
[2020-03-18] MEDS: Cyanocobalamin 500 MCG TAB PO (07:58)
[2020-03-18] MEDS: Ascorbic Acid 500 MG TAB PO ×2 (07:58→20:13)
[2020-03-18] MEDS: Gabapentin 300 MG CAP PO ×2 (07:58→20:13)
[2020-03-18] MEDS: Lisinopril 20 MG TAB PO ×2 (07:58→20:13)
[2020-03-18] MEDS: Multivitamin TAB 1 TAB PO (07:59)
[2020-03-18] MEDS: Labetalol 100 MG TAB PO ×2 (07:59→20:13)
[2020-03-18] MEDS: Insulin Aspart 300 UNITS/3 ML PEN SC ×3 (08:06→17:54)
--- NOTE | 2020-03-18 08:13 | PDOC.CMPRO ---
- If Service Date Differs Date of service: 03/18/20 Time of Service: 08:13 Care Management Progress Note S/O:Ally is alert and engaged she states that she is feeling well today and her pain is under control. She wants to return home she states she is willing to receive home health services for nursing and PT. Inpatient PT has recommended home health PT. Nursing for follow up post surgical needs and assessments. Ally has a FWW at home and feels that she has enough A: Ally is a 74 year old female admitted Bimalleolar fracture of right ankle and right distal femur, post op P:Discharge home with new home health services, PT and Nursing, CM faxed referral. She has a FWW. She will be transported home via private car with significant other.
--- NOTE | 2020-03-18 09:23 | PT.INIE ---
Date of service: 03/18/20 Time of Service: 09:23 PT Notes Visit Reasons: RIGHT FEMORAL FX RIGHT ANKLE FX Inpatient Physical Therapy Initial Evaluation Date: 03/18/2020 Referring Doctor: Peng Gauthier MD PT Orders: PT CONSULT: Status post Ortho surgery. Right lower extremity protected weightbearing with walker. Must wear knee immobilizer while out of bed. Gentle active and passive knee range of motion okay in line while in bed. Precautions: Fall. Standard. WBAT to R LE. Patient Profile/Admitting Diagnosis: Ally is a 74-year-old female who presented to the ED on 03/16/2020 via EMS with chief complaints of right LE pain and inability to bear weight on the right. Patient sustained a periprosthetic fracture around internal prosthetic knee joint on the right and a bimalleolar fracture on the right status post ORIF of right distal femoral periprosthetic fracture and ORIF of right bimalleolar fracture on postoperative day 1. PMHX: Medical History Arthritis of knee, right (Resolved) CVA (cerebral vascular accident) (Chronic) Diabetes mellitus (Chronic) checks am blood sugars typically in 150-180 range last a1c 7.1 GI bleed (Chronic) Gout (Chronic) Hiatal hernia (Chronic) History of depression (Chronic) meds in past presently on no rx for depression Hypertension (Chronic) TIM (obstructive sleep apnea) (Chronic) has used cpap in past presently not using Osteoarthritis (Chronic) Surgical History History of appendectomy (Chronic) History of arthroscopic knee surgery (Chronic) History of colonoscopy (Chronic) History of hysterectomy (Chronic) Social History/Home Situation: Patient lives with significant other in a mobile home with 2 steps to enter leading to a porch and another 2 steps leading to the entrance of the house with rails on both sides. She is independent with all aspects of ADLs prior to surgery. Equipment Owned/DME: SB[employer], FWW, walk-in shower Subjective: Patient is pleasant and cooperative. She is agreeable to a PT consult and treatment today. She denies pain in the R LE at rest but reported 1-2/10 with weight bearing and with movement. She complained about being shaky at start of ambulation activity but was okay after a quick seated rest. Objective: General Observation: Nurse Jose present throughout session to help out with mobility assessment and to monitor vital signs. Patient seen resting in bed with ANNETTE wraps on right LE covered with knee immobilizer. FRENCH on left lower extremity. Anti-DVT pump on left lower extremity. Aiken catheter in place. IV in R UE. Mental Status: Alert and oriented x 4 Pain: Reports 0/10 pain at rest, 1-2/10 with with weight bearing. Vital Signs: Was initially at 97% on 1 L of oxyge/minute and remain between 94 and 95% on room air with throughout therapy session ROM: Right Upper Extremity: Shoulder Flexion allows up to 110 degrees. Shoulder abduction allows up to 100 degrees. Elbow flexion WFL. Wrist flexion WFL. Functional opening and closing of hand WFL. Left Upper Extremity: Shoulder Flexion WFL. Shoulder abduction WFL. Elbow flexion WFL. Wrist flexion WFL. Functional opening and closing of hand WFL. Right Lower Extremity: Hip flexion unable in supine and sitting at edge of bed. Hip abduction 0-20. Knee flexion NT. Knee extension not tested. Ankle dorsiflexion NT. Ankle plantarflexion NT. Left Lower Extremity: Hip flexion WFL. Hip abduction WFL. Knee flexion WFL. Ankle dorsiflexion WFL. Ankle plantarflexion WFL. Strength: Right Upper Extremity: Shoulder flexors 3-/5. Shoulder abductors 3-/5. Elbow flexors 4/5. Elbow extensors 4-/5. Marketing Development Specialist weak but functional. . Left Upper Extremity: Shoulder flexors 4/5. Shoulder abductors 4/5. Elbow flexors 4/5. Elbow extensors 4/5. Marketing Development Specialist strong. Right Lower Extremity: Hip flexors 3-/5. Hip abductors 3-/5. Knee flexors 3-/5. Knee extensors 3-/5. Ankle dorsiflexors 5/5. Ankle plantarflexors 5/5. Left Lower Extremity: Hip flexors 4/5. Hip abductors 4/5. Knee flexors 5/5. Knee extensors 5/5. Ankle dorsiflexors 5/5. Ankle plantarflexors 5/5. Bed Mobility/Transfers: Supine to sit minimal assist to right LE with HOB at 30 degrees Sit to stand contact-guard assist with FWW, minimal verbal cueing for hand placement Stand to sit contact-guard assist Bed to chair contact-guard assist with FWW, minimal verbal cueing for hand placement Chair to bed contact-guard assist with FWW, minimal verbal cueing for hand placement Gait: Patient tolerated level surface ambulation of up to 30 feet +70 feet using FWW with minimal assist and minimal verbal cueing for hand placement and strategies to manage right LE for limb advancement as well as for movement transitions while knee immobilizer on. Patient reports 1?2/10 pain on the right knee and right ankle. Balance: Static Sitting: Good Dynamic Sitting: Good Static Standing: Fair Dynamic Standing: Fair Special Tests: Mobility Limitations Standardized Measure [facility] AM-PAC 6 clicks Basic Mobility Inpatient Short Form: Raw Score: 18 CMS Score: 47% deficit Informed Consent/Education: Patient instructed in purpose of PT consult and plan of care. Assessment: Ally demonstrates need for an assistive ambulatory device for all mobility ADL performance, unsteadiness of gait, impairment in strength and range of motion resulting from postoperative status. Ally is a 74-year-old female who presented to the ED on 03/16/2020 via EMS with chief complaints of right LE pain and inability to bear weight on the right. Patient sustained a periprosthetic fracture around internal prosthetic knee joint on the right and a bimalleolar fracture on the right status post ORIF of right distal femoral periprosthetic fracture and ORIF of right bimalleolar fracture on postoperative day 1. Patient presents with clinical signs and symptoms consistent with current/admitting diagnoses that have resulted to mobility limitations, gait instability, generalized weakness, and impairment of motor control as demonstrated by the following impairment level findings: 1. Decreased strength to our R LE major muscle groups 2. Impaired standing balance 3. Impaired activity tolerance 4. Limitation of joint range of motion in right knee and ankle Impairments are contributing to the following functional limitations: 1. Dependent bed mobility skills 2. Increased dependence with transfers 3. Inability to safely ambulate without assistive device and physical assistance 4. Increase completion time for mobility ADL performance 5. Increased fall risk 6. Inability to negotiate steps alone safely Patient is assessed as a Moderate 30580 complexity based on the following: History: 74-year-old female with impairment level findings, functional limitations, and medical history as listed above Examination: Demonstrable impairment in strength, balance, and range of motion with underlying impairments and functional limitations as documented above Presentation: Evolving 30487 moderate complexity Decision Makin moderate complexity Goals: Goals X1 week 1. Supine-Sit independent 2. Sit-Supine independent 3. Sit-Stand independent 4. Stand-Sit independent 5. Bed-Chair independent 6. Chair-Bed independent 7. Independent gait on level surface with use of least restrictive device for at least 200 feet without report of pain nor dyspnea 8. Independent stair negotiation while holding onto bilateral rails for at least 5 steps without report of pain nor dyspnea 9. Independent with home exercise program 10. Good static and dynamic standing balance/tolerance Plan of Care/Treatment Plan: 1-2x/day, 7 days/week x 1 week. Plan of care has been reviewed with the RESIDENT CARE SUPERVISOR providing the service under Physical Therapy direction. Initiate Physical Therapy intervention for strengthening, bed mobility, transfers, gait, stairs, balance training, use of assistive device. PT intervention: Session today consisted of initial physical therapy evaluation as well as education/training on mobility ADL performance training using front wheeled walker. Patient was also instructed to do hourly performance of quadriceps setting muscle exercises held for 5 counts x 10, gluteal setting x 10 as well as ankle pumping exercises x 30 every hour in order to maximize mobilization and range of motion gains. DISCHARGE RECOMMENDATIONS: Patient will benefit from home health physical therapy services in order to assess for home safety, maximize mobility gains at discharge destination, and establish/implement a functional maintenance program for strengthening and fall reduction. No equipment needs at this time. Encourage use of proper footwear once swelling resolves in order to maximize weight bearing and shock absorption through B LE. TREATMENT CODE/TIME: 21219 for 25 minutes, 40389 for 23 minutes, beginning at 9:23 AM. Thank you for this referral. Bhakti Ferreira, PT, DPT, CLT [facility] [place], [place]
--- NOTE | 2020-03-18 11:22 | RESPIRATORY ---
Spoke with patient concerning the TIM listed in her medical history. Patient stated she has never used a machine or oxygen for her TIM at night.
--- NOTE | 2020-03-18 11:57 | W.PM.PROGNOT ---
Date of Service Date of service: 03/18/20 Time of Service: 11:57 Assessment and Plan Assessment and plan (1) Bimalleolar fracture of right ankle: Status: Acute Assessment and plan: s/p surgical repair, post op day 1 right distal femur ORIF and right ankle ORIF. continue routine post operative care, will be followed and directed by orthopedics, please see note for details. lovenox daily for 30 days. continue pain management, bowel management and pulmonary toilet. dressing change per orthopedics, walker and knee immobilizer at all times for protected weight bearing as tolerated. Qualifiers: Encounter type: initial encounter Fracture type: closed Qualified Code(s): S82.841A - Displaced bimalleolar fracture of right lower leg, initial encounter for closed fracture (2) COPD without exacerbation: Status: Acute Assessment and plan: stable, continue monitoring (3) Diabetes mellitus: Status: Chronic Assessment and plan: blood sugars better managed today 142, 196. hemoglobin A1C is 7.4. continue diabetic diet. sliding scale ac/hs. diabetic education (4) Hypertension: Status: Chronic Assessment and plan: on lisinopril and labetalol, continue home meds and monitor. (5) DVT prophylaxis: Status: Acute Assessment and plan: lovenox 40 mg daily per orthopedics (6) Discharge planning issues: Status: Acute Assessment and plan: case management following, plan is to discharge to home likely with PT/OT Subjective Subjective Patient reports: no new complaints, feels better, tolerating liquids well, tolerating a regular diet and afebrile Exam Const General: cooperative, healthy appearing, comfortable, no acute distress and well developed Nutritional Appearance: average body habitus Orientation: alert, awake and oriented x3 HENMT Head: normal to inspection, normocephalic and atraumatic Face and sinus: normal facial exam Mouth: oral mucosae normal Resp Effort & Inspection: normal respiratory effort Auscultation: crackles (bases bilaterally, fine), no rhonchi and no wheezes Cardio Rate: regular rate Rhythm: regular rhythm GI Inspection: normal to inspection Palpation: soft Auscultation: normal bowel sounds General: other (fitzgerald draining clear yellow urine) Skin Lesions: other (surgical wounds not visualized. surgical dressing intact) Rashes: no rashes Other: toes warm to touch, able to freely move, sensation intact. Neuro General: patient alert, patient awake and patient oriented x3 Cranial Nerves: CN's II-XI intact bilaterally Cognition: normal cognition Speech: speech normal Extrem General: full ROM (limied right a knee immobilizer in place. Short leg plaster intact) and normal gait (gait assisted, walker. ) Objective Objective Clinical Data: Abnormal lab results 03/18/20 03/18/20 Range/Units 07:00 07:00 WBC 12.17 H (4.4-10.8) k/cumm Hgb 11.9 L (12.0-15.5) g/dL MCHC 31.3 L (32.0-36.0) g/dL Glucose 158 H (74-106) mg/dL Calcium 8.4 L (8.5-10.1) mg/dL Vital Signs Temperature 37 C 03/18/20 07:43 Temperature Source Tympanic 03/18/20 07:43 Pulse 94 H 03/18/20 07:43 Pulse Rhythm Regular 03/18/20 07:30 Respiratory Rate 12 03/18/20 07:43 Respiratory Effort Non-Labored 03/18/20 07:30 Respiratory Depth Normal 03/18/20 07:30 Respiratory Pattern Normal 03/18/20 07:30 Blood Pressure 150/82 H 03/18/20 07:43 Blood Pressure Mean 88 03/16/20 13:00 Blood Pressure Position Sitting 03/16/20 09:15 Pulse Oximetry 95 03/18/20 11:19 Respiratory End-tidal CO2 39 03/17/20 16:35 Oxygen Delivery Method Room Air 03/18/20 11:19 Oxygen Flow Rate 0 03/18/20 11:19 Pain Level 0 03/18/20 07:57 Comment 03/18/20 07:43 Intake & Output 03/17/20 03/17/20 03/18/20 11:59 23:59 11:59 Intake Total 1110.833 / 3033.000 1922.167 / 3033.000 1830 / 1830 Output Total 1000 / 2500 1500 / 2500 2900 / 2900 Balance 110.833 / 533.000 422.167 / 533.000 -1070 / -1070 Intake: IV 1110.833 / 2933.000 1822.167 / 2933.000 1050 / 1050 Oral 100 / 100 780 / 780 Output: Urine 1000 / 2300 1300 / 2300 2900 / 2900 Estimated Blood Loss 200 / 200 Other: Urine Color Yellow Yellow Yellow Urine Appearance Clear Clear Clear Comment pt was complaining that previous fitzgerald was burning and very painful, same was removed and was replaced patient denies pain or burning Emesis Description None Laboratory Results WBC 12.17 k/cumm (4.4-10.8) H 03/18/20 07:00 RBC 4.11 m/cumm (4.00-5.20) 03/18/20 07:00 Hgb 11.9 g/dL (12.0-15.5) L 03/18/20 07:00 Hct 38.0 % (36.0-46.0) 03/18/20 07:00 MCV 92.5 fL (80-95) 03/18/20 07:00 MCH 29.0 pg (27.0-33.0) 03/18/20 07:00 MCHC 31.3 g/dL (32.0-36.0) L 03/18/20 07:00 RDW 13.6 % (11.7-14.6) 03/18/20 07:00 Plt Count 151 x1000/uL (130-400) 03/18/20 07:00 MPV 10.6 fL (8.0-11.0) 03/18/20 07:00 Immature Gran % 0.3 % 03/16/20 10:40 Neutrophils % 80.6 03/16/20 10:40 Lymphocytes % 13.2 03/16/20 10:40 Monocytes % 4.3 03/16/20 10:40 Eosinophils % 1.1 03/16/20 10:40 Basophils % 0.5 03/16/20 10:40 Absolute Neutrophils 9.25 k/cumm (1.2-6.7) H 03/16/20 10:40 Absolute Lymphocytes 1.52 k/cumm (1.2-3.4) 03/16/20 10:40 Absolute Monocytes 0.49 k/cumm (0.11-0.7) 03/16/20 10:40 Absolute Eosinophils 0.13 k/cumm (0.0-0.7) 03/16/20 10:40 Absolute Basophils 0.06 k/cumm (0.0-0.2) 03/16/20 10:40 PT 10.4 sec (9.3-11.0) 03/16/20 10:40 INR 1.0 (0.9-1.1) 03/16/20 10:40 APTT 26.5 sec (21.0-31.4) 03/16/20 10:40 Sodium 142 mmol/L (136-145) 03/18/20 07:00 Potassium 4.6 mmol/L (3.5-5.1) 03/18/20 07:00 Chloride 106 mmol/L (98-107) 03/18/20 07:00 Carbon Dioxide 30.0 mmol/L (21.0-32.0) 03/18/20 07:00 Anion Gap 6.0 mmol/L (3-11) 03/18/20 07:00 BUN 10 mg/dL (7-18) 03/18/20 07:00 Creatinine 0.59 mg/dL (0.55-1.02) 03/18/20 07:00 Estimated GFR/1.73 m2 >= 60.00 (mL/min/1.73m2) 03/18/20 07:00 Glucose 158 mg/dL (74-106) H 03/18/20 07:00 Hemoglobin A1c 7.4 % (3.8-5.6) H 03/17/20 08:00 Calcium 8.4 mg/dL (8.5-10.1) L 03/18/20 07:00 Magnesium 1.9 mg/dL (1.8-2.4) 03/17/20 08:00 Total Bilirubin 0.7 mg/dL (0.2-1.0) 03/16/20 10:40 AST 23 U/L (15-37) 03/16/20 10:40 ALT 28 U/L (14-59) 03/16/20 10:40 Alkaline Phosphatase 123 U/L (46-116) H 03/16/20 10:40 Total Protein 7.8 g/dL (6.4-8.2) 03/16/20 10:40 Albumin 4.3 g/dL (3.4-5.0) 03/16/20 10:40 25-OH Vitamin D Total 21.8 ng/ml (30-100) L 03/17/20 08:00 Urine Color Yellow (Yellow) 03/16/20 14:11 Urine Clarity Clear (Clear) 03/16/20 14:11 Urine pH 5.0 (5-8) 03/16/20 14:11 Ur Specific [place] 1.020 (1.005-1.025) 03/16/20 14:11 Urine Protein Negative mg/dL (Negative) 03/16/20 14:11 Urine Ketones Negative mg/dL (Negative) 03/16/20 14:11 Urine Blood Trace-intact (Negative) H 03/16/20 14:11 Urine Nitrite Negative (Negative) 03/16/20 14:11 Urine Bilirubin Negative (Negative) 03/16/20 14:11 Urine Urobilinogen 0.2 EU/dL (Up TO 0.2) 03/16/20 14:11 Ur Leukocyte Esterase Negative (Negative) 03/16/20 14:11 Urine RBC 3-5 HPF (0-2) H 03/16/20 14:11 Urine WBC 0-2 HPF (0-5) 03/16/20 14:11 Ur Epithelial Cells Rare HPF (Negative) 03/16/20 14:11 Urine Crystals Negative HPF (Negative) 03/16/20 14:11 Urine Bacteria Negative HPF (Negative) 03/16/20 14:11 Urine Casts Negative LPF (Negative) 03/16/20 14:11 Urine Mucus Negative (Negative) 03/16/20 14:11 Ur Culture Indicated? No 03/16/20 14:11 Urine Glucose 500 mg/dL (Negative) H 03/16/20 14:11 COVID-19 PCR Negative (Negative) 03/16/20 14:00 Nasopharyn COVID-19 PCR Not Applicable 03/16/20 14:00 Ref Test Perform Site [facility] lab 03/16/20 14:00 Patient ABO/Rh AB Positive 03/16/20 10:40 Antibody Screen Negative 03/16/20 10:40
--- NOTE | 2020-03-18 13:19 | W.PM.PROGNOT ---
Date of Service Date of service: 03/18/20 Time of Service: 13:19 Assessment and Plan Assessment and plan (1) Bimalleolar fracture of right ankle: Status: Acute Qualifiers: Encounter type: initial encounter Fracture type: closed Qualified Code(s): S82.841A - Displaced bimalleolar fracture of right lower leg, initial encounter for closed fracture (2) Periprosthetic fracture around internal prosthetic right knee joint, initial encounter: Status: Acute (3) Status post total knee replacement, right: Status: Acute Assessment and plan: 74-year-old female postop day #1 status post right distal femur ORIF and right ankle ORIF Complete 24 hours postoperative antibiotics Optimize medical diabetic glucose control and appreciate office machine service supervisor's recommendations to optimize healing Right lower extremity protected weightbearing with assist device like walker Physical therapy. Okay to remove knee immobilizer while in bed and perform gentle knee passive and active range of motion. Encourage daily total range of motion for circulation. Out of bed. Must wear knee immobilizer while out of bed. Elevation right lower extremity at the level of the heart while in bed to minimize swelling. Pain control- multimodal SCDs and FRENCH hose left lower extremity SQH versus Lovenox for DVT prophylaxis starting this evening, 24 hours postoperative. Plan for Lovenox 40 mg daily for 30 days as outpatient DVT prophylaxis. Keep dressings in place and clean and dry until follow-up Anticipate discharge home in later today or tomorrow with health services including physical therapy as needed Follow-up outpatient with Dr. Gauthier at [facility] orthopedics in 10 days for dressing care, suture removal, x-rays, and clinical exam. Postoperative care discussed with primary medical team Call me directly if any questions or concerns Subjective Subjective Interval history since last seen: Resting comfortably in chair. Feels well. No complaints. Asking about going home. Exam Narrative Exam Narrative: Awake and alert in chair. Breathing nonlabored Right lower extremity: Dressing clean dry intact. Knee immobilizer in place. Short leg plaster splint in place. Distal toes neurovascularly and limited by preoperative nerve block. Demonstrates active motor toes All toes warm and well-perfused. No signs of infection DVT or PE Objective Objective Clinical Data: Abnormal lab results 03/18/20 03/18/20 Range/Units 07:00 07:00 WBC 12.17 H (4.4-10.8) k/cumm Hgb 11.9 L (12.0-15.5) g/dL MCHC 31.3 L (32.0-36.0) g/dL Glucose 158 H (74-106) mg/dL Calcium 8.4 L (8.5-10.1) mg/dL Vital Signs Temperature 98.6 F 03/18/20 07:43 Temperature Source Tympanic 03/18/20 07:43 Pulse 94 H 03/18/20 07:43 Pulse Rhythm Regular 03/18/20 07:30 Respiratory Rate 12 03/18/20 07:43 Respiratory Effort Non-Labored 03/18/20 07:30 Respiratory Depth Normal 03/18/20 07:30 Respiratory Pattern Normal 03/18/20 07:30 Blood Pressure 150/82 H 03/18/20 07:43 Blood Pressure Mean 88 03/16/20 13:00 Blood Pressure Position Sitting 03/16/20 09:15 Pulse Oximetry 95 03/18/20 11:19 Respiratory End-tidal CO2 39 03/17/20 16:35 Oxygen Delivery Method Room Air 03/18/20 11:19 Oxygen Flow Rate 0 03/18/20 11:19 Pain Level 0 03/18/20 07:57 Comment 03/18/20 07:43 Intake & Output 03/17/20 03/18/20 03/18/20 23:59 11:59 23:59 Intake Total 1922.167 / 3033.000 1830 / 2109.167 279.167 / 2109.167 Output Total 1500 / 2500 2900 / 2900 Balance 422.167 / 533.000 -1070 / -790.833 279.167 / -790.833 Intake: IV 1822.167 / 2933.000 1050 / 1329.167 279.167 / 1329.167 Oral 100 / 100 780 / 780 Output: Urine 1300 / 2300 2900 / 2900 Estimated Blood Loss 200 / 200 Other: Urine Color Yellow Yellow Urine Appearance Clear Clear Comment pt was complaining that previous fitzgerald was burning and very painful, same was removed and was replaced patient denies pain or burning Emesis Description None Laboratory Results WBC 12.17 k/cumm (4.4-10.8) H 03/18/20 07:00 RBC 4.11 m/cumm (4.00-5.20) 03/18/20 07:00 Hgb 11.9 g/dL (12.0-15.5) L 03/18/20 07:00 Hct 38.0 % (36.0-46.0) 03/18/20 07:00 MCV 92.5 fL (80-95) 03/18/20 07:00 MCH 29.0 pg (27.0-33.0) 03/18/20 07:00 MCHC 31.3 g/dL (32.0-36.0) L 03/18/20 07:00 RDW 13.6 % (11.7-14.6) 03/18/20 07:00 Plt Count 151 x1000/uL (130-400) 03/18/20 07:00 MPV 10.6 fL (8.0-11.0) 03/18/20 07:00 Immature Gran % 0.3 % 03/16/20 10:40 Neutrophils % 80.6 03/16/20 10:40 Lymphocytes % 13.2 03/16/20 10:40 Monocytes % 4.3 03/16/20 10:40 Eosinophils % 1.1 03/16/20 10:40 Basophils % 0.5 03/16/20 10:40 Absolute Neutrophils 9.25 k/cumm (1.2-6.7) H 03/16/20 10:40 Absolute Lymphocytes 1.52 k/cumm (1.2-3.4) 03/16/20 10:40 Absolute Monocytes 0.49 k/cumm (0.11-0.7) 03/16/20 10:40 Absolute Eosinophils 0.13 k/cumm (0.0-0.7) 03/16/20 10:40 Absolute Basophils 0.06 k/cumm (0.0-0.2) 03/16/20 10:40 PT 10.4 sec (9.3-11.0) 03/16/20 10:40 INR 1.0 (0.9-1.1) 03/16/20 10:40 APTT 26.5 sec (21.0-31.4) 03/16/20 10:40 Sodium 142 mmol/L (136-145) 03/18/20 07:00 Potassium 4.6 mmol/L (3.5-5.1) 03/18/20 07:00 Chloride 106 mmol/L (98-107) 03/18/20 07:00 Carbon Dioxide 30.0 mmol/L (21.0-32.0) 03/18/20 07:00 Anion Gap 6.0 mmol/L (3-11) 03/18/20 07:00 BUN 10 mg/dL (7-18) 03/18/20 07:00 Creatinine 0.59 mg/dL (0.55-1.02) 03/18/20 07:00 Estimated GFR/1.73 m2 >= 60.00 (mL/min/1.73m2) 03/18/20 07:00 Glucose 158 mg/dL (74-106) H 03/18/20 07:00 Hemoglobin A1c 7.4 % (3.8-5.6) H 03/17/20 08:00 Calcium 8.4 mg/dL (8.5-10.1) L 03/18/20 07:00 Magnesium 1.9 mg/dL (1.8-2.4) 03/17/20 08:00 Total Bilirubin 0.7 mg/dL (0.2-1.0) 03/16/20 10:40 AST 23 U/L (15-37) 03/16/20 10:40 ALT 28 U/L (14-59) 03/16/20 10:40 Alkaline Phosphatase 123 U/L (46-116) H 03/16/20 10:40 Total Protein 7.8 g/dL (6.4-8.2) 03/16/20 10:40 Albumin 4.3 g/dL (3.4-5.0) 03/16/20 10:40 25-OH Vitamin D Total 21.8 ng/ml (30-100) L 03/17/20 08:00 Urine Color Yellow (Yellow) 03/16/20 14:11 Urine Clarity Clear (Clear) 03/16/20 14:11 Urine pH 5.0 (5-8) 03/16/20 14:11 Ur Specific [place] 1.020 (1.005-1.025) 03/16/20 14:11 Urine Protein Negative mg/dL (Negative) 03/16/20 14:11 Urine Ketones Negative mg/dL (Negative) 03/16/20 14:11 Urine Blood Trace-intact (Negative) H 03/16/20 14:11 Urine Nitrite Negative (Negative) 03/16/20 14:11 Urine Bilirubin Negative (Negative) 03/16/20 14:11 Urine Urobilinogen 0.2 EU/dL (Up TO 0.2) 03/16/20 14:11 Ur Leukocyte Esterase Negative (Negative) 03/16/20 14:11 Urine RBC 3-5 HPF (0-2) H 03/16/20 14:11 Urine WBC 0-2 HPF (0-5) 03/16/20 14:11 Ur Epithelial Cells Rare HPF (Negative) 03/16/20 14:11 Urine Crystals Negative HPF (Negative) 03/16/20 14:11 Urine Bacteria Negative HPF (Negative) 03/16/20 14:11 Urine Casts Negative LPF (Negative) 03/16/20 14:11 Urine Mucus Negative (Negative) 03/16/20 14:11 Ur Culture Indicated? No 03/16/20 14:11 Urine Glucose 500 mg/dL (Negative) H 03/16/20 14:11 COVID-19 PCR Negative (Negative) 03/16/20 14:00 Nasopharyn COVID-19 PCR Not Applicable 03/16/20 14:00 Ref Test [facility] 03/16/20 14:00 Patient ABO/Rh AB Positive 03/16/20 10:40 Antibody Screen Negative 03/16/20 10:40
--- NOTE | 2020-03-18 13:33 | W.INDIABCONS ---
Date of service: 03/18/20 Time of Service: 13:33 Diabetes Inpatient Consult DESCRIPTION/ASSESSMENT: 74 year old female admitted with ankle fracture s/p fall. PMH: poorly controlled DM, COPD, CVA. Home meds include metformin. Met with Ally today to provide Diabetes Education. She reports checking her BS TID and that they tend to run around 130-150 mg/dl. Reports BS have recently increased dispite no change in health or diet. Recent A1C 7.4% indicates mildly elevated blood sugars. INTERVENTION: Provided education on DM including Hyper/hypoglycemia s/s with action plan for each scenario. Definition and types of CHO with examples, CHO counting, DASH diet materials, DM meal planning and label reading literature. Provided a blood sugar and food record chart and materials to reiterate CHO counting techniques. Reviewed desirable BG levels with patient with food choices and portions for optimal outcomes. Provided contact information for this RD and encouraged to call with any f/u questions r/t to DM self management. CDM from kitchen has been helping to count CHO's and achieve intake of ~65g/CHO per meal period. PLAN: Will follow up with automobile service writer as outpatient if needs further assistance managing DM Time Spent in Nutritional Counseling and Treatment: 20 min
--- NOTE | 2020-03-18 13:52 | CHAPLAIN ---
Ally was sitting up in her room when I visited. She is very pleasant and engages in conversation. I introduce myself and explain my role. Ally shares some personal history, telling me that she is from [place]. After her , she me Ramos from [place] and moved up here with him to be closer to his adult children. Ally spent part of the winter back in [place] with her sister. She is keeping in touch with family by phone.
--- NOTE | 2020-03-18 15:24 | PTTR_ITS ---
Date of service: 03/18/20 Time of Service: 15:24 PT Notes Visit Reasons: RIGHT FEMORAL FX RIGHT ANKLE FX Inpatient Physical Therapy Treatment Note [facility] Date: 03/18/20 PRECAUTIONS: Fall, WBAT R SUBJECTIVE:Ally is agreeable to participating in PT this afternoon. She is hopeful that she will be discharged home tomorrow. OBJECTIVE: PAIN: Patient rates R LE pain as 6/10, post PT session BED MOBILITY/TRANSFERS Sit-supine: Max A with HOB flat Sit-stand: CGA Stand-sit: CGA Bed-Chair: CGA Chair-bed: [facility] GAIT Assistive Device: FWW Weight bearing: WBAT R Assist: CGA Distance: 20' + 60' Deviation: Step-to gait pattern, increased fatigue and R LE pain THEREX: Patient completed several LE stabilization exercises, including ankle pumps, quad sets and glute sets. TOILETING: Patient toileted and required Max A x2 for [id number] transfer from low surface. ASSESSMENT: Patient tolerated session with complaint of increased R LE pain and fatigue. She demonstrates continued need for gait training and global strengthening for improved mobility and continued progression toward independence. PLAN: Continue with PT's POC TREATMENT CODE/TIME: 25 minutes; [id number] x2
[2020-03-18] MEDS: Enoxaparin 40 MG/0.4 ML SYR SC (20:13)
[2020-03-19] VITALS (8 sets, daily range): BP systolic 136–161; BP diastolic 65–81; PULSE 72–94; RESP 16–23; TEMP 36.6–37.8; O2SAT 91–95
[2020-03-19] MEDS: traMADol 50 MG TAB PO ×2 (04:31→11:12)
[2020-03-19 07:30] LABS: HCT 34.6 % (36.0-46.0); HGB 10.7 g/dL (12.0-15.5); Mean Corp. HGB Concentration 30.9 g/dL (32.0-36.0); Mean Corpuscular Hemoglobin 29.2 pg (27.0-33.0); Mean Corpuscular Volume 94.3 fL (80-95); Mean Platelet Volume 10.1 fL (8.0-11.0); Platelet Count 210 x1000/uL (130-400); RBC 3.67 m/cumm (4.00-5.20); RBC Distribution Width 13.9 % (11.7-14.6); White Blood Cell Count 10.23 k/cumm (4.4-10.8)
[2020-03-19 07:42] LABS: Anion Gap 5.5 mmol/L (3-11); BUN 10 mg/dL (7-18); CO2 30.5 mmol/L (21.0-32.0); CREATININE 0.62 mg/dL (0.55-1.02); Calcium 8.2 mg/dL (8.5-10.1); Chloride 104 mmol/L (98-107); Glucose 170 mg/dL (74-106); Potassium 3.9 mmol/L (3.5-5.1); Sodium 140 mmol/L (136-145)
[2020-03-19] MEDS: Ascorbic Acid 500 MG TAB PO ×2 (08:20→19:20)
[2020-03-19] MEDS: Acetaminophen 500 MG TAB 1000 MG PO ×2 (08:20→13:56)
[2020-03-19] MEDS: Labetalol 100 MG TAB PO ×2 (08:20→19:20)
[2020-03-19] MEDS: Cyanocobalamin 500 MCG TAB PO (08:20)
[2020-03-19] MEDS: Lisinopril 20 MG TAB PO ×2 (08:21→19:20)
[2020-03-19] MEDS: Multivitamin TAB 1 TAB PO (08:21)
[2020-03-19] MEDS: Gabapentin 300 MG CAP PO ×2 (08:21→19:20)
[2020-03-19] MEDS: Insulin Aspart 300 UNITS/3 ML PEN SC ×3 (08:23→17:13)
[2020-03-19] MEDS: Docusate Sodium 100 MG CAP PO (09:36)
--- NOTE | 2020-03-19 10:52 | PT.INTREAT ---
Date of service: 03/19/20 Time of Service: 08:30 PT Notes Visit Reasons: RIGHT FEMORAL FX RIGHT ANKLE FX Inpatient Physical Therapy Treatment Note [facility] Date: 03/19/20 PRECAUTIONS: Fall, WBAT R SUBJECTIVE:Ally is agreeable to participating in PT. She reports that she has a new fear of falling. She is concerned that she will not be able to manage safely at home at this point, and verbalizes that she is considering a SNF stay, prior to returning home. During the second PT session, patient states that she spoke with her partner, Ramos, and they agree that it would be most appropriate for her to discharge to a SNF prior to returning home. We both agree that we don't know how we'd manage if I went home right away. OBJECTIVE: PAIN: Patient c/o R LE pain, post PT session BED MOBILITY/TRANSFERS Supine-sit: SBA with HOB flat and use of leg hardwood floor refinisher Sit-stand: SBA Stand-sit: SBA GAIT Assistive Device: FWW Weight bearing: WBAT R Assist: CGA?SBA in a.m.; SBA in p.m. Distance: 20' + 10' x2 in a.m.; 6' x2 in p.m. Deviation: Step-to gait pattern, increased fatigue and R LE pain, significant review of weight bearing status and mechanics, complaints of dizziness in a.m. THEREX: Patient completed several LE stabilization exercises, including ankle pumps, quad sets and glute sets, and active assisted SLR and active assisted hip abduction. TOILETING: Patient toileted with SBA for transfers in both a.m. and p.m. STAIRS: Demonstration and instruction for stair negotiation, patient declines attempting stair negotiation, she feels she is unable to perform stair negotiation while maintaining protective weight bearing status. Held further stair training. ASSESSMENT: Patient tolerated session with complaint of increased R LE pain and fatigue. She demonstrates continued need for gait training and global strengthening for improved mobility and continued progression toward independence. PLAN: Continue with PT's POC TREATMENT CODE/TIME: Session 1: 50 minutes; [id number] x2, [id number] Session 2: 15 minutes; [id number]
--- NOTE | 2020-03-19 11:01 | W.PM.PROGNOT ---
Date of Service Date of service: 03/19/20 Time of Service: 11:01 Assessment and Plan Assessment and plan (1) Bimalleolar fracture of right ankle: Status: Acute Assessment and plan: s/p surgical repair, post op day 2 right distal femur ORIF and right ankle ORIF. continue routine post operative care, will be followed and directed by orthopedics, please see note for details. lovenox daily for 30 days. continue pain management, bowel management and pulmonary toilet. dressing change per orthopedics, walker and knee immobilizer at all times for protected weight bearing as tolerated. Qualifiers: Encounter type: initial encounter Fracture type: closed Qualified Code(s): S82.841A - Displaced bimalleolar fracture of right lower leg, initial encounter for closed fracture (2) COPD without exacerbation: Status: Acute Assessment and plan: stable, continue monitoring (3) Diabetes mellitus: Status: Chronic Assessment and plan: blood sugars today 163,. hemoglobin A1C is 7.4. continue diabetic diet. sliding scale ac/hs. diabetic education (4) Hypertension: Status: Chronic Assessment and plan: on lisinopril and labetalol, continue home meds and monitor. (5) DVT prophylaxis: Status: Acute Assessment and plan: lovenox 40 mg daily per orthopedics (6) Discharge planning issues: Status: Acute Assessment and plan: case management following, plan is to discharge to home likely with PT/OT Subjective Subjective Patient reports: still having pain, tolerating liquids well and tolerating a regular diet Interval history since last seen: patient requiring max assist for transfers. today felt lightheaded and became diaphoretic when working with PT. place and wheelchair and by time vitals obtained symptoms improving. she was hemodynamically stable at that time with HR 80's and SBP 110. otherwise eating well with no other active issues. Exam Const General: cooperative, healthy appearing, comfortable, no acute distress and well developed Nutritional Appearance: average body habitus Orientation: alert, awake and oriented x3 HENMT Head: normal to inspection, normocephalic and atraumatic Face and sinus: normal facial exam Mouth: oral mucosae normal Resp Effort & Inspection: normal respiratory effort Auscultation: crackles (bases bilaterally, fine), no rhonchi and no wheezes Cardio Rate: regular rate Rhythm: regular rhythm GI Inspection: normal to inspection Palpation: soft Auscultation: normal bowel sounds Skin Lesions: other (surgical wounds not visualized. surgical dressing intact) Rashes: no rashes Neuro General: patient alert, patient awake and patient oriented x3 Cranial Nerves: CN's II-XI intact bilaterally Cognition: normal cognition Speech: speech normal Extrem General: full ROM (limied right a knee immobilizer in place. Short leg plaster intact), normal gait (gait assisted, walker. ) and pedal edema (trace, toes warm, good active rom and movement to toes) bilaterally Objective Objective Clinical Data: Abnormal lab results 03/19/20 03/19/20 Range/Units 06:45 06:45 RBC 3.67 L (4.00-5.20) m/cumm Hgb 10.7 L (12.0-15.5) g/dL Hct 34.6 L (36.0-46.0) % MCHC 30.9 L (32.0-36.0) g/dL Glucose 170 H (74-106) mg/dL Calcium 8.2 L (8.5-10.1) mg/dL Vital Signs Temperature 37.7 C H 03/19/20 08:20 Temperature Source Tympanic 03/19/20 07:39 Pulse 92 H 03/19/20 07:39 Pulse Rhythm Regular 03/19/20 07:30 Respiratory Rate 23 03/19/20 07:39 Respiratory Effort Short of Breath 03/19/20 07:30 Respiratory Depth Normal 03/19/20 07:30 Respiratory Pattern Tachypnea 03/19/20 07:30 Blood Pressure 142/80 H 03/19/20 07:39 Blood Pressure Mean 88 03/16/20 13:00 Blood Pressure Position Sitting 03/16/20 09:15 Pulse Oximetry 91 L 03/19/20 07:39 Respiratory End-tidal CO2 39 03/17/20 16:35 Oxygen Delivery Method Room Air 03/19/20 07:39 Oxygen Flow Rate 0 03/19/20 07:39 Pain Level 4 03/19/20 10:00 Comment 03/19/20 04:20 Intake & Output 03/18/20 03/18/20 03/19/20 11:59 23:59 11:59 Intake Total 1830 / 3610.000 1780.000 / 3610.000 700 / 700 Output Total 2900 / 3900 1000 / 3900 700 / 700 Balance -1070 / -290.000 780.000 / -290.000 0 / 0 Intake: IV 1050 / 2110.000 1060.000 / 2110.000 Oral 780 / 1500 720 / 1500 700 / 700 Output: Urine 2900 / 3900 1000 / 3900 700 / 700 Other: Urine Color Yellow Yellow Yellow Urine Appearance Clear Clear Clear Urine Odor None Normal Comment patient denies pain or burning unabel to assess amount mixed with stool Stool Size Large Stool Characteristics Brown Voiding Methods Bedside Commode Bedside Commode Laboratory Results WBC 10.23 k/cumm (4.4-10.8) 03/19/20 06:45 RBC 3.67 m/cumm (4.00-5.20) L 03/19/20 06:45 Hgb 10.7 g/dL (12.0-15.5) L 03/19/20 06:45 Hct 34.6 % (36.0-46.0) L 03/19/20 06:45 MCV 94.3 fL (80-95) 03/19/20 06:45 MCH 29.2 pg (27.0-33.0) 03/19/20 06:45 MCHC 30.9 g/dL (32.0-36.0) L 03/19/20 06:45 RDW 13.9 % (11.7-14.6) 03/19/20 06:45 Plt Count 210 x1000/uL (130-400) 03/19/20 06:45 MPV 10.1 fL (8.0-11.0) 03/19/20 06:45 Immature Gran % 0.3 % 03/16/20 10:40 Neutrophils % 80.6 03/16/20 10:40 Lymphocytes % 13.2 03/16/20 10:40 Monocytes % 4.3 03/16/20 10:40 Eosinophils % 1.1 03/16/20 10:40 Basophils % 0.5 03/16/20 10:40 Absolute Neutrophils 9.25 k/cumm (1.2-6.7) H 03/16/20 10:40 Absolute Lymphocytes 1.52 k/cumm (1.2-3.4) 03/16/20 10:40 Absolute Monocytes 0.49 k/cumm (0.11-0.7) 03/16/20 10:40 Absolute Eosinophils 0.13 k/cumm (0.0-0.7) 03/16/20 10:40 Absolute Basophils 0.06 k/cumm (0.0-0.2) 03/16/20 10:40 PT 10.4 sec (9.3-11.0) 03/16/20 10:40 INR 1.0 (0.9-1.1) 03/16/20 10:40 APTT 26.5 sec (21.0-31.4) 03/16/20 10:40 Sodium 140 mmol/L (136-145) 03/19/20 06:45 Potassium 3.9 mmol/L (3.5-5.1) 03/19/20 06:45 Chloride 104 mmol/L (98-107) 03/19/20 06:45 Carbon Dioxide 30.5 mmol/L (21.0-32.0) 03/19/20 06:45 Anion Gap 5.5 mmol/L (3-11) 03/19/20 06:45 BUN 10 mg/dL (7-18) 03/19/20 06:45 Creatinine 0.62 mg/dL (0.55-1.02) 03/19/20 06:45 Estimated GFR/1.73 m2 >= 60.00 (mL/min/1.73m2) 03/19/20 06:45 Glucose 170 mg/dL (74-106) H 03/19/20 06:45 Hemoglobin A1c 7.4 % (3.8-5.6) H 03/17/20 08:00 Calcium 8.2 mg/dL (8.5-10.1) L 03/19/20 06:45 Magnesium 1.9 mg/dL (1.8-2.4) 03/17/20 08:00 Total Bilirubin 0.7 mg/dL (0.2-1.0) 03/16/20 10:40 AST 23 U/L (15-37) 03/16/20 10:40 ALT 28 U/L (14-59) 03/16/20 10:40 Alkaline Phosphatase 123 U/L (46-116) H 03/16/20 10:40 Total Protein 7.8 g/dL (6.4-8.2) 03/16/20 10:40 Albumin 4.3 g/dL (3.4-5.0) 03/16/20 10:40 25-OH Vitamin D Total 21.8 ng/ml (30-100) L 03/17/20 08:00 Urine Color Yellow (Yellow) 03/16/20 14:11 Urine Clarity Clear (Clear) 03/16/20 14:11 Urine pH 5.0 (5-8) 03/16/20 14:11 Ur Specific [place] 1.020 (1.005-1.025) 03/16/20 14:11 Urine Protein Negative mg/dL (Negative) 03/16/20 14:11 Urine Ketones Negative mg/dL (Negative) 03/16/20 14:11 Urine Blood Trace-intact (Negative) H 03/16/20 14:11 Urine Nitrite Negative (Negative) 03/16/20 14:11 Urine Bilirubin Negative (Negative) 03/16/20 14:11 Urine Urobilinogen 0.2 EU/dL (Up TO 0.2) 03/16/20 14:11 Ur Leukocyte Esterase Negative (Negative) 03/16/20 14:11 Urine RBC 3-5 HPF (0-2) H 03/16/20 14:11 Urine WBC 0-2 HPF (0-5) 03/16/20 14:11 Ur Epithelial Cells Rare HPF (Negative) 03/16/20 14:11 Urine Crystals Negative HPF (Negative) 03/16/20 14:11 Urine Bacteria Negative HPF (Negative) 03/16/20 14:11 Urine Casts Negative LPF (Negative) 03/16/20 14:11 Urine Mucus Negative (Negative) 03/16/20 14:11 Ur Culture Indicated? No 03/16/20 14:11 Urine Glucose 500 mg/dL (Negative) H 03/16/20 14:11 COVID-19 PCR Negative (Negative) 03/16/20 14:00 Nasopharyn COVID-19 PCR Not Applicable 03/16/20 14:00 Ref Test Perform Site [facility] lab 03/16/20 14:00 Patient ABO/Rh AB Positive 03/16/20 10:40 Antibody Screen Negative 03/16/20 10:40
--- NOTE | 2020-03-19 12:22 | PDOC.CMPRO ---
- If Service Date Differs Date of service: 03/19/20 Time of Service: 12:22 Care Management Progress Note S/O:Ally is alert and engaged with CM assessment. She would like to have rehabilitation prior to returning home, CM reviews local SNF's Ally [facility] and would like to go there for short term rehab. CM left a message for the rehab and faxed a referral she would be ready on . A: Ally is a 74 year old female admitted Bimalleolar fracture of right ankle and right distal femur, status post repair P:Ally will be discharged when medically ready [facility]. Transportation to be determined based on disposition.
--- NOTE | 2020-03-19 13:25 | PGE_ITS ---
Date of Service Date of service: 03/19/20 Time of Service: 13:25 Assessment and Plan Assessment and plan (1) Bimalleolar fracture of right ankle: Status: Acute Qualifiers: Encounter type: initial encounter Fracture type: closed Qualified Code(s): S82.841A - Displaced bimalleolar fracture of right lower leg, initial encounter for closed fracture (2) Periprosthetic fracture around internal prosthetic right knee joint, initial encounter: Status: Acute (3) Status post total knee replacement, right: Status: Acute Assessment and plan: 74-year-old female postop day #2 status post right distal femur ORIF and right ankle ORIF Emphasize incentive spirometry to reduce atelectasis and chance of another low- grade elevated temperature Optimize medical diabetic glucose control and appreciate tangible personal property appraiser's recommendations to optimize healing Right lower extremity protected weightbearing with assist device like walker Physical therapy. Okay to remove knee immobilizer while in bed and perform gentle knee passive and active range of motion. Encourage daily total range of motion for circulation. Out of bed. Must wear knee immobilizer while out of bed. Elevation right lower extremity at the level of the heart while in bed to minimize swelling. Pain control- multimodal SCDs and FRENCH hose left lower extremity SQH versus Lovenox for inpatient DVT prophylaxis. Plan for Lovenox 40 mg daily for 30 days as outpatient DVT prophylaxis. Keep dressings in place and clean and dry until follow-up Anticipate discharge home in later today or tomorrow with health services including physical therapy as needed Follow-up outpatient with Dr. Gauthier at [facility] orthopedics in 10 days for dressing care, suture removal, x-rays, and clinical exam. Call me directly if any questions or concerns Subjective Subjective Interval history since last seen: No new complaints. Resting comfortably in chair. Exam Narrative Exam Narrative: Awake and alert in chair. Breathing nonlabored Right lower extremity: Dressing clean dry intact. Knee immobilizer in place. Short leg plaster splint in place. Distal toes neurovascularly and limited by preoperative nerve block. Demonstrates active motor toes All toes warm and well-perfused. No signs of infection DVT or PE Objective Objective Clinical Data: Abnormal lab results 03/19/20 03/19/20 Range/Units 06:45 06:45 RBC 3.67 L (4.00-5.20) m/cumm Hgb 10.7 L (12.0-15.5) g/dL Hct 34.6 L (36.0-46.0) % MCHC 30.9 L (32.0-36.0) g/dL Glucose 170 H (74-106) mg/dL Calcium 8.2 L (8.5-10.1) mg/dL Vital Signs Temperature 99.1 F 03/19/20 11:58 Temperature Source Tympanic 03/19/20 11:50 Pulse 85 03/19/20 11:58 Pulse Rhythm Regular 03/19/20 07:30 Respiratory Rate 16 03/19/20 11:58 Respiratory Effort Short of Breath 03/19/20 07:30 Respiratory Depth Normal 03/19/20 07:30 Respiratory Pattern Tachypnea 03/19/20 07:30 Blood Pressure 136/77 03/19/20 11:58 Blood Pressure Mean 88 03/16/20 13:00 Blood Pressure Position Sitting 03/16/20 09:15 Pulse Oximetry 94 L 03/19/20 11:58 Respiratory End-tidal CO2 39 03/17/20 16:35 Oxygen Delivery Method Room Air 03/19/20 11:50 Oxygen Flow Rate 0 03/19/20 11:50 Pain Level 3 03/19/20 11:58 Comment 03/19/20 11:50 Intake & Output 03/18/20 03/19/20 03/19/20 23:59 11:59 23:59 Intake Total 1780.000 / 3610.000 1700 / 2180 480 / 2180 Output Total 1000 / 3900 700 / 700 Balance 780.000 / -260.219 9122 / 1480 480 / 1480 Intake: IV 1060.000 / 2110.000 1000 / 1000 Oral 720 / 1500 700 / 1180 480 / 1180 Output: Urine 1000 / 3900 700 / 700 Other: Urine Color Yellow Yellow Urine Appearance Clear Clear Urine Odor None Normal Comment unabel to assess amount mixed with stool Stool Size Large Stool Characteristics Brown Voiding Methods Bedside Commode Bedside Commode Laboratory Results WBC 10.23 k/cumm (4.4-10.8) 03/19/20 06:45 RBC 3.67 m/cumm (4.00-5.20) L 03/19/20 06:45 Hgb 10.7 g/dL (12.0-15.5) L 03/19/20 06:45 Hct 34.6 % (36.0-46.0) L 03/19/20 06:45 MCV 94.3 fL (80-95) 03/19/20 06:45 MCH 29.2 pg (27.0-33.0) 03/19/20 06:45 MCHC 30.9 g/dL (32.0-36.0) L 03/19/20 06:45 RDW 13.9 % (11.7-14.6) 03/19/20 06:45 Plt Count 210 x1000/uL (130-400) 03/19/20 06:45 MPV 10.1 fL (8.0-11.0) 03/19/20 06:45 Immature Gran % 0.3 % 03/16/20 10:40 Neutrophils % 80.6 03/16/20 10:40 Lymphocytes % 13.2 03/16/20 10:40 Monocytes % 4.3 03/16/20 10:40 Eosinophils % 1.1 03/16/20 10:40 Basophils % 0.5 03/16/20 10:40 Absolute Neutrophils 9.25 k/cumm (1.2-6.7) H 03/16/20 10:40 Absolute Lymphocytes 1.52 k/cumm (1.2-3.4) 03/16/20 10:40 Absolute Monocytes 0.49 k/cumm (0.11-0.7) 03/16/20 10:40 Absolute Eosinophils 0.13 k/cumm (0.0-0.7) 03/16/20 10:40 Absolute Basophils 0.06 k/cumm (0.0-0.2) 03/16/20 10:40 PT 10.4 sec (9.3-11.0) 03/16/20 10:40 INR 1.0 (0.9-1.1) 03/16/20 10:40 APTT 26.5 sec (21.0-31.4) 03/16/20 10:40 Sodium 140 mmol/L (136-145) 03/19/20 06:45 Potassium 3.9 mmol/L (3.5-5.1) 03/19/20 06:45 Chloride 104 mmol/L (98-107) 03/19/20 06:45 Carbon Dioxide 30.5 mmol/L (21.0-32.0) 03/19/20 06:45 Anion Gap 5.5 mmol/L (3-11) 03/19/20 06:45 BUN 10 mg/dL (7-18) 03/19/20 06:45 Creatinine 0.62 mg/dL (0.55-1.02) 03/19/20 06:45 Estimated GFR/1.73 m2 >= 60.00 (mL/min/1.73m2) 03/19/20 06:45 Glucose 170 mg/dL (74-106) H 03/19/20 06:45 Hemoglobin A1c 7.4 % (3.8-5.6) H 03/17/20 08:00 Calcium 8.2 mg/dL (8.5-10.1) L 03/19/20 06:45 Magnesium 1.9 mg/dL (1.8-2.4) 03/17/20 08:00 Total Bilirubin 0.7 mg/dL (0.2-1.0) 03/16/20 10:40 AST 23 U/L (15-37) 03/16/20 10:40 ALT 28 U/L (14-59) 03/16/20 10:40 Alkaline Phosphatase 123 U/L (46-116) H 03/16/20 10:40 Total Protein 7.8 g/dL (6.4-8.2) 03/16/20 10:40 Albumin 4.3 g/dL (3.4-5.0) 03/16/20 10:40 25-OH Vitamin D Total 21.8 ng/ml (30-100) L 03/17/20 08:00 Urine Color Yellow (Yellow) 03/16/20 14:11 Urine Clarity Clear (Clear) 03/16/20 14:11 Urine pH 5.0 (5-8) 03/16/20 14:11 Ur Specific [place] 1.020 (1.005-1.025) 03/16/20 14:11 Urine Protein Negative mg/dL (Negative) 03/16/20 14:11 Urine Ketones Negative mg/dL (Negative) 03/16/20 14:11 Urine Blood Trace-intact (Negative) H 03/16/20 14:11 Urine Nitrite Negative (Negative) 03/16/20 14:11 Urine Bilirubin Negative (Negative) 03/16/20 14:11 Urine Urobilinogen 0.2 EU/dL (Up TO 0.2) 03/16/20 14:11 Ur Leukocyte Esterase Negative (Negative) 03/16/20 14:11 Urine RBC 3-5 HPF (0-2) H 03/16/20 14:11 Urine WBC 0-2 HPF (0-5) 03/16/20 14:11 Ur Epithelial Cells Rare HPF (Negative) 03/16/20 14:11 Urine Crystals Negative HPF (Negative) 03/16/20 14:11 Urine Bacteria Negative HPF (Negative) 03/16/20 14:11 Urine Casts Negative LPF (Negative) 03/16/20 14:11 Urine Mucus Negative (Negative) 03/16/20 14:11 Ur Culture Indicated? No 03/16/20 14:11 Urine Glucose 500 mg/dL (Negative) H 03/16/20 14:11 COVID-19 PCR Negative (Negative) 03/16/20 14:00 Nasopharyn COVID-19 PCR Not Applicable 03/16/20 14:00 [facility] 14:00 Patient ABO/Rh AB Positive 03/16/20 10:40 Antibody Screen Negative 03/16/20 10:40
[2020-03-19] MEDS: Enoxaparin 40 MG/0.4 ML SYR SC (19:20)
[2020-03-19] MEDS: Normal Saline Flush 10 ML SYR IVP (19:21)
[2020-03-20] VITALS (8 sets, daily range): BP systolic 106–168; BP diastolic 68–84; PULSE 82–100; RESP 16–20; TEMP 36.2–38.6; O2SAT 92–96
[2020-03-20] MEDS: traMADol 50 MG TAB PO ×2 (03:30→11:55)
[2020-03-20] MEDS: Acetaminophen 325 MG TAB 650 MG PO (04:29)
[2020-03-20 06:50] LABS: HCT 34.8 % (36.0-46.0); HGB 10.9 g/dL (12.0-15.5); Mean Corp. HGB Concentration 31.3 g/dL (32.0-36.0); Mean Corpuscular Hemoglobin 29.4 pg (27.0-33.0); Mean Corpuscular Volume 93.8 fL (80-95); Platelet Count 262 x1000/uL (130-400); RBC 3.71 m/cumm (4.00-5.20); RBC Distribution Width 13.9 % (11.7-14.6); White Blood Cell Count 9.77 k/cumm (4.4-10.8)
[2020-03-20 06:58] LABS: Anion Gap 5.6 mmol/L (3-11); BUN 12 mg/dL (7-18); CO2 30.4 mmol/L (21.0-32.0); CREATININE 0.65 mg/dL (0.55-1.02); Calcium 8.3 mg/dL (8.5-10.1); Chloride 101 mmol/L (98-107); Glucose 146 mg/dL (74-106); Sodium 137 mmol/L (136-145)
[2020-03-20] MEDS: Docusate Sodium 100 MG CAP PO (08:13)
[2020-03-20] MEDS: Ascorbic Acid 500 MG TAB PO ×2 (08:14→19:29)
[2020-03-20] MEDS: Labetalol 100 MG TAB PO ×2 (08:14→19:28)
[2020-03-20] MEDS: Gabapentin 300 MG CAP PO ×2 (08:14→19:28)
[2020-03-20] MEDS: Multivitamin TAB 1 TAB PO (08:14)
[2020-03-20] MEDS: Cyanocobalamin 500 MCG TAB PO (08:14)
[2020-03-20] MEDS: Lisinopril 20 MG TAB PO ×2 (08:14→19:28)
[2020-03-20] MEDS: Insulin Aspart 300 UNITS/3 ML PEN SC ×3 (08:15→17:20)
[2020-03-20] MEDS: Normal Saline Flush 10 ML SYR IVP ×2 (08:15→20:51)
--- NOTE | 2020-03-20 08:55 | INDS_ITS ---
Date of service: 03/20/20 Time of Service: 08:55 PT Notes Visit Reasons: RIGHT FEMORAL FX RIGHT ANKLE FX Inpatient Physical Therapy Discharge Summary Date: 03/18/2020 Dates of Service: 03/18/2020 through 03/20/2020 Referring Doctor: Peng Gauthier MD PT Orders: PT CONSULT: Status post Ortho surgery. Right lower extremity protected weightbearing with walker. Must wear knee immobilizer while out of bed. Gentle active and passive knee range of motion okay in line while in bed. Precautions: Fall. Standard. WBAT to R LE. Patient Profile/Admitting Diagnosis: Ally is a 74-year-old female who presented to the ED on 03/16/2020 via EMS with chief complaints of right LE pain and inability to bear weight on the right. Patient sustained a periprosthetic fracture around internal prosthetic knee joint on the right and a bimalleolar fracture on the right status post ORIF of right distal femoral periprosthetic fracture and ORIF of right bimalleolar fracture on postoperative day 1. PMHX: Medical History Arthritis of knee, right (Resolved) CVA (cerebral vascular accident) (Chronic) Diabetes mellitus (Chronic) checks am blood sugars typically in 150-180 range last a1c 7.1 GI bleed (Chronic) Gout (Chronic) Hiatal hernia (Chronic) History of depression (Chronic) meds in past presently on no rx for depression Hypertension (Chronic) TIM (obstructive sleep apnea) (Chronic) has used cpap in past presently not using Osteoarthritis (Chronic) Surgical History History of appendectomy (Chronic) History of arthroscopic knee surgery (Chronic) History of colonoscopy (Chronic) History of hysterectomy (Chronic) Social History/Home Situation: Patient lives with significant other in a mobile home with 2 steps to enter leading to a porch and another 2 steps leading to the entrance of the house with rails on both sides. She is independent with all aspects of ADLs prior to surgery. Equipment Owned/DME: SBQC, FWW, walk-in shower Subjective: Patient reported lightheadedness with ambulation from bedside commode to her door. She was immediately asked to sit down for safety. Nurses Ghada and Bernadette were informed about patient's symptoms and came in to reassess. Objective: General Observation: Nurse Jose present throughout session. Patient appeared diaphoretic, shaky, and clammy. Mental Status: Alert and oriented x 4 Pain: Reports 0/10 pain at rest, 1-2/10 with with weight bearing. Vital Signs: Was initially at 97% on 1 L of oxyge/minute and remain between 94 and 95% on room air with throughout therapy session ROM: Right Upper Extremity: Shoulder Flexion allows up to 110 degrees. Shoulder abduction allows up to 100 degrees. Elbow flexion WFL. Wrist flexion WFL. Functional opening and closing of hand WFL. Left Upper Extremity: Shoulder Flexion WFL. Shoulder abduction WFL. Elbow flexion WFL. Wrist flexion WFL. Functional opening and closing of hand WFL. Right Lower Extremity: Hip flexion unable in supine and sitting at edge of bed. Hip abduction 0-20. Knee flexion NT. Knee extension not tested. Ankle dorsiflexion NT. Ankle plantarflexion NT. Left Lower Extremity: Hip flexion WFL. Hip abduction WFL. Knee flexion WFL. Ankl e dorsiflexion WFL. Ankle plantarflexion WFL. Strength: Right Upper Extremity: Shoulder flexors 3-/5. Shoulder abductors 3-/5. Elbow flexors 4/5. Elbow extensors 4-/5. [employer] weak but functional. . Left Upper Extremity: Shoulder flexors 4/5. Shoulder abductors 4/5. Elbow flexors 4/5. Elbow extensors 4/5. [employer] Worker strong. Right Lower Extremity: Hip flexors 3-/5. Hip abductors 3-/5. Knee flexors 3-/5. Knee extensors 3-/5. Ankle dorsiflexors 5/5. Ankle plantarflexors 5/5. Left Lower Extremity: Hip flexors 4/5. Hip abductors 4/5. Knee flexors 5/5. Knee extensors 5/5. Ankle dorsiflexors 5/5. Ankle plantarflexors 5/5. Bed Mobility/Transfers: Sit to stand SBA with FWW, minimal verbal cueing for hand placement Stand to sit SBA Bed to chair SBA with FWW, minimal verbal cueing for hand placement Chair to bed SBA with FWW, minimal verbal cueing for hand placement Gait: Patient tolerated level surface ambulation of up to 5 feet + 12 feet + 4 feet with TTWB on R using FWW with minimal assist and minimal verbal cueing for hand placement and strategies to manage right LE for limb advancement as well as for movement transitions while knee immobilizer on. Patient reports 1?2/10 pain on the right knee and right ankle. Balance: Static Sitting: Good Dynamic Sitting: Good Static Standing: Fair Dynamic Standing: Fair Assessment: Patient had a suspected vasovagal episode which shortened today's PT session. Ally continues to demonstrate need for an assistive ambulatory device for all mobility ADL performance, unsteadiness of gait, impairment in strength and range of motion resulting from postoperative status. Ally is a 74-year-old female who presented to the ED on 03/16/2020 via EMS with chief complaints of right LE pain and inability to bear weight on the right. Patient sustained a periprosthetic fracture around internal prosthetic knee joint on the right and a bimalleolar fracture on the right status post ORIF of right distal femoral periprosthetic fracture and ORIF of right bimalleolar fracture on postoperative day 2. Patient continues to present with clinical signs and symptoms consistent with current/admitting diagnoses that have resulted to mobility limitations, gait instability, generalized weakness, and impairment of motor control as demonstrated by the following impairment level findings: 1. Decreased strength to our R LE major muscle groups 2. Impaired standing balance 3. Impaired activity tolerance 4. Limitation of joint range of motion in right knee and ankle Impairments are continuing to contribute to the following functional limitations: 1. Dependent bed mobility skills 2. Increased dependence with transfers 3. Inability to safely ambulate without assistive device and physical assistance 4. Increase completion time for mobility ADL performance 5. Increased fall risk 6. Inability to negotiate steps alone safely Goals: Goals X1 week 1. Supine-Sit independent NOT MET 2. Sit-Supine independent NOT MET 3. Sit-Stand independent NOT MET 4. Stand-Sit independent NOT MET 5. Bed-Chair independent NOT MET 6. Chair-Bed independent NOT MET 7. Independent gait on level surface with use of least restrictive device for at least 200 feet without report of pain nor dyspnea NOT MET 8. Independent stair negotiation while holding onto bilateral rails for at least 5 steps without report of pain nor dyspnea NOT MET 9. Independent with home exercise program 10. Good static and dynamic standing balance/tolerance DISCHARGE RECOMMENDATIONS: Patient will benefit from intermediate facility placement for continued skilled physical therapy services in order to progress mobility level, strength, and balance in preparation for a safe discharge to home. TREATMENT CODE/TIME: 38919 for 25minutes beginning at 8:55 AM. Thank you for this referral. Bhakti Ferreira, PT, DPT, CLT [facility] [place], [place]
--- NOTE | 2020-03-20 09:26 | DI.RAD_ITS ---
EXAM: XR CHEST 2V PA LATERAL CLINICAL HISTORY: fever TECHNIQUE: 2D digital imaging was performed. COMPARISON: CR,XR XR CHEST 2V PA LATERAL from 03/16/2020 FINDINGS: The AP view was performed sitting. The lung bases are suboptimally penetrated. The heart size is wi thin normal limits. The aorta is again noted to be tortuous. No infiltrate or effusion is seen. Th ere are mild fibrotic changes in the upper lobes. IMPRESSION: No acute pulmonary findings. DATA REPOSITORY: RADIATION DOSE DELIVERED:
--- NOTE | 2020-03-20 11:09 | PGE_ITS ---
Date of Service Date of service: 03/20/20 Time of Service: 11:09 Assessment and Plan Assessment and plan (1) Fever: Status: Acute Assessment and plan: no obvious source of infection with no new c/o. UA and CXR pending. monitor for source of infection, possibly post operative response. (2) Bimalleolar fracture of right ankle: Status: Acute Assessment and plan: s/p surgical repair, post op day 3 right distal femur ORIF and right ankle ORIF. continue routine post operative care, will be followed and directed by orthopedics, please see note for details. lovenox daily for 30 days. continue pain management, bowel management and pulmonary toilet. dressing change per orthopedics, walker and knee immobilizer at all times for protected weight bearing as tolerated. Qualifiers: Encounter type: initial encounter Fracture type: closed Qualified Code(s): S82.841A - Displaced bimalleolar fracture of right lower leg, initial encounter for closed fracture (3) COPD without exacerbation: Status: Acute Assessment and plan: stable, continue monitoring (4) Diabetes mellitus: Status: Chronic Assessment and plan: blood sugars stable,. hemoglobin A1C is 7.4. continue diabetic diet. sliding scale ac/hs. diabetic education (5) Hypertension: Status: Chronic Assessment and plan: on lisinopril and labetalol, continue home meds and monitor. (6) DVT prophylaxis: Status: Acute Assessment and plan: lovenox 40 mg daily per orthopedics (7) Discharge planning issues: Status: Acute Assessment and plan: case management following, plan is to discharge to [facility] and rehab once covid test resulted and she is medically stable. Subjective Subjective Patient reports: still having pain, tolerating liquids well and tolerating a regular diet Interval history since last seen: patient requiring max assist for transfers. today felt lightheaded and became diaphoretic when after getting up from the commode. she was hemodynamically stable at that time with a blood sugar 160's. otherwise eating well with no other active issues. reports that she has these episodes periodically at home. Exam Const General: cooperative, healthy appearing, comfortable, no acute distress and well developed Nutritional Appearance: average body habitus Orientation: alert, awake and oriented x3 HENMT Head: normal to inspection, normocephalic and atraumatic Face and sinus: normal facial exam Mouth: oral mucosae normal Resp Effort & Inspection: normal respiratory effort Auscultation: crackles (bases bilaterally, fine), no rhonchi and no wheezes Cardio Rate: regular rate Rhythm: regular rhythm GI Inspection: normal to inspection Palpation: soft Auscultation: normal bowel sounds General: other (fitzgerald draining clear yellow urine) Skin Lesions: other (surgical wounds not visualized. surgical dressing intact) Rashes: no rashes Neuro General: patient alert, patient awake and patient oriented x3 Cranial Nerves: CN's II-XI intact bilaterally Cognition: normal cognition Speech: speech normal Extrem General: full ROM (limied right a knee immobilizer in place. Short leg plaster intact), normal gait (gait assisted, walker. ) and pedal edema (trace, toes warm, good active rom and movement to toes) bilaterally Objective Objective Clinical Data: Abnormal lab results 03/20/20 03/20/20 Range/Units 06:35 06:35 RBC 3.71 L (4.00-5.20) m/cumm Hgb 10.9 L (12.0-15.5) g/dL Hct 34.8 L (36.0-46.0) % MCHC 31.3 L (32.0-36.0) g/dL Glucose 146 H (74-106) mg/dL Calcium 8.3 L (8.5-10.1) mg/dL Vital Signs Temperature 38.6 C H 03/20/20 03:29 Temperature Source Tympanic 03/20/20 03:29 Pulse 94 H 03/20/20 03:29 Pulse Rhythm Regular 03/20/20 03:35 Respiratory Rate 18 03/20/20 03:29 Respiratory Effort Non-Labored 03/20/20 03:35 Respiratory Depth Normal 03/20/20 03:35 Respiratory Pattern Normal 03/20/20 03:35 Blood Pressure 158/83 H 03/20/20 03:29 Blood Pressure Mean 88 03/16/20 13:00 Blood Pressure Position Sitting 03/16/20 09:15 Pulse Oximetry 95 03/20/20 03:29 Respiratory End-tidal CO2 39 03/17/20 16:35 Oxygen Delivery Method Room Air 03/20/20 03:29 Oxygen Flow Rate 0 03/20/20 03:29 Pain Level 2 03/20/20 10:03 Comment 03/19/20 11:50 Intake & Output 03/19/20 03/19/20 03/20/20 11:59 23:59 11:59 Intake Total 1700 / 2440 740 / 2440 500 / 500 Output Total 700 / 2750 2050 / 2750 900 / 900 Balance 1000 / -310 -1310 / -310 -400 / -400 Intake: IV 1000 / 1010 10 / 1010 Oral 700 / 1430 730 / 1430 500 / 500 Output: Urine 700 / 2750 2050 / 2750 900 / 900 Other: Urine Color Yellow Straw Yellow Urine Appearance Clear Clear Clear Urine Odor Normal Strong Normal Voiding Methods Bedside Commode Bedside Commode Bedside Commode Laboratory Results WBC 9.77 k/cumm (4.4-10.8) 03/20/20 06:35 RBC 3.71 m/cumm (4.00-5.20) L 03/20/20 06:35 Hgb 10.9 g/dL (12.0-15.5) L 03/20/20 06:35 Hct 34.8 % (36.0-46.0) L 03/20/20 06:35 MCV 93.8 fL (80-95) 03/20/20 06:35 MCH 29.4 pg (27.0-33.0) 03/20/20 06:35 MCHC 31.3 g/dL (32.0-36.0) L 03/20/20 06:35 RDW 13.9 % (11.7-14.6) 03/20/20 06:35 Plt Count 262 x1000/uL (130-400) 03/20/20 06:35 MPV 10.0 fL (8.0-11.0) 03/20/20 06:35 Immature Gran % 0.3 % 03/16/20 10:40 Neutrophils % 80.6 03/16/20 10:40 Lymphocytes % 13.2 03/16/20 10:40 Monocytes % 4.3 03/16/20 10:40 Eosinophils % 1.1 03/16/20 10:40 Basophils % 0.5 03/16/20 10:40 Absolute Neutrophils 9.25 k/cumm (1.2-6.7) H 03/16/20 10:40 Absolute Lymphocytes 1.52 k/cumm (1.2-3.4) 03/16/20 10:40 Absolute Monocytes 0.49 k/cumm (0.11-0.7) 03/16/20 10:40 Absolute Eosinophils 0.13 k/cumm (0.0-0.7) 03/16/20 10:40 Absolute Basophils 0.06 k/cumm (0.0-0.2) 03/16/20 10:40 PT 10.4 sec (9.3-11.0) 03/16/20 10:40 INR 1.0 (0.9-1.1) 03/16/20 10:40 APTT 26.5 sec (21.0-31.4) 03/16/20 10:40 Sodium 137 mmol/L (136-145) 03/20/20 06:35 Potassium 4.0 mmol/L (3.5-5.1) 03/20/20 06:35 Chloride 101 mmol/L (98-107) 03/20/20 06:35 Carbon Dioxide 30.4 mmol/L (21.0-32.0) 03/20/20 06:35 Anion Gap 5.6 mmol/L (3-11) 03/20/20 06:35 BUN 12 mg/dL (7-18) 03/20/20 06:35 Creatinine 0.65 mg/dL (0.55-1.02) 03/20/20 06:35 Estimated GFR/1.73 m2 >= 60.00 (mL/min/1.73m2) 03/20/20 06:35 Glucose 146 mg/dL (74-106) H 03/20/20 06:35 Hemoglobin A1c 7.4 % (3.8-5.6) H 03/17/20 08:00 Calcium 8.3 mg/dL (8.5-10.1) L 03/20/20 06:35 Magnesium 1.9 mg/dL (1.8-2.4) 03/17/20 08:00 Total Bilirubin 0.7 mg/dL (0.2-1.0) 03/16/20 10:40 AST 23 U/L (15-37) 03/16/20 10:40 ALT 28 U/L (14-59) 03/16/20 10:40 Alkaline Phosphatase 123 U/L (46-116) H 03/16/20 10:40 Total Protein 7.8 g/dL (6.4-8.2) 03/16/20 10:40 Albumin 4.3 g/dL (3.4-5.0) 03/16/20 10:40 25-OH Vitamin D Total 21.8 ng/ml (30-100) L 03/17/20 08:00 Urine Color Yellow (Yellow) 03/16/20 14:11 Urine Clarity Clear (Clear) 03/16/20 14:11 Urine pH 5.0 (5-8) 03/16/20 14:11 Ur Specific Nickerson 1.020 (1.005-1.025) 03/16/20 14:11 Urine Protein Negative mg/dL (Negative) 03/16/20 14:11 Urine Ketones Negative mg/dL (Negative) 03/16/20 14:11 Urine Blood Trace-intact (Negative) H 03/16/20 14:11 Urine Nitrite Negative (Negative) 03/16/20 14:11 Urine Bilirubin Negative (Negative) 03/16/20 14:11 Urine Urobilinogen 0.2 EU/dL (Up TO 0.2) 03/16/20 14:11 Ur Leukocyte Esterase Negative (Negative) 03/16/20 14:11 Urine RBC 3-5 HPF (0-2) H 03/16/20 14:11 Urine WBC 0-2 HPF (0-5) 03/16/20 14:11 Ur Epithelial Cells Rare HPF (Negative) 03/16/20 14:11 Urine Crystals Negative HPF (Negative) 03/16/20 14:11 Urine Bacteria Negative HPF (Negative) 03/16/20 14:11 Urine Casts Negative LPF (Negative) 03/16/20 14:11 Urine Mucus Negative (Negative) 03/16/20 14:11 Ur Culture Indicated? No 03/16/20 14:11 Urine Glucose 500 mg/dL (Negative) H 03/16/20 14:11 COVID-19 PCR Negative (Negative) 03/16/20 14:00 Nasopharyn COVID-19 PCR Not Applicable 03/16/20 14:00 Ref Test Perform Site [facility] 03/16/20 14:00 Patient ABO/Rh AB Positive 03/16/20 10:40 Antibody Screen Negative 03/16/20 10:40
--- NOTE | 2020-03-20 17:02 | PDOC.CMPRO ---
- If Service Date Differs Date of service: 03/20/20 Time of Service: 17:02 Care Management Progress Note S/O: No change in plan today she was febrile overnight. [facility] when she is ready she was retested for COVID today. ANticiapte she will be discharged on Tuesday to [facility]. A: Ally is a 74 year old female admitted Bimalleolar fracture of right ankle and right distal femur, status post repair P:Alyl will be discharged when medically to [facility]. [facility].
[2020-03-20] MEDS: Enoxaparin 40 MG/0.4 ML SYR SC (19:28)
[2020-03-20 22:54] LABS: COVID-19 RT-PCR UVMMC Result Negative (Negative)
[2020-03-21 01:21] LABS: Bilirubin Negative (Negative); Blood Negative (Negative); Clarity Clear (Clear); Glucose >=1000 mg/dL (Negative); Ketones 40 mg/dL (Negative); Leukocyte Esterase Negative (Negative); Nitrite Negative (Negative); Urobilinogen 0.2 EU/dL (Up TO 0.2)
[2020-03-21 03:15] VITALS: BP 155/84; PULSE 82; RESP 16; TEMP 36.7; O2SAT 91
[2020-03-21] MEDS: traMADol 50 MG TAB PO (06:18)
[2020-03-21 07:25] VITALS: BP 151/85; PULSE 84; RESP 18; TEMP 37.3; O2SAT 93
[2020-03-21] MEDS: Normal Saline Flush 10 ML SYR IVP (08:13)
[2020-03-21] MEDS: Insulin Aspart 300 UNITS/3 ML PEN SC (08:14)
[2020-03-21] MEDS: Docusate Sodium 100 MG CAP PO (08:14)
[2020-03-21] MEDS: Labetalol 100 MG TAB PO (08:14)
[2020-03-21] MEDS: Ascorbic Acid 500 MG TAB PO (08:15)
[2020-03-21] MEDS: Multivitamin TAB 1 TAB PO (08:15)
[2020-03-21] MEDS: Gabapentin 300 MG CAP PO (08:15)
[2020-03-21] MEDS: Lisinopril 20 MG TAB PO (08:15)
[2020-03-21] MEDS: Cyanocobalamin 500 MCG TAB PO (08:15)
[2020-03-21] MEDS: Acetaminophen 325 MG TAB 650 MG PO (09:18)
--- NOTE | 2020-03-21 10:19 | W.PM.DS.N ---
Date of service: 03/21/20 Time of Service: 10:19 DS: Diagnosis Discharge Diagnosis (1) Fever: Status: Acute (2) Bimalleolar fracture of right ankle: Status: Acute (3) COPD without exacerbation: Status: Acute (4) Diabetes mellitus: Status: Chronic (5) Hypertension: Status: Chronic Discharge Plan Disposition Patient Disposition: SNF (LEVEL 1) [facility] Condition: Fair Discharge Details Chief Complaint: Orthopedic Clinical Impression: Closed right femoral fracture, Ankle fracture, right Reason For Visit: RIGHT FEMORAL FX RIGHT ANKLE FX Admit Date/Time: 03/16/20 12:20 Admit Provider: Dimitri Munoz Attending Provider: Dimitri Munoz Primary Care Provider: Arron Caceres ED Provider: Jessica Naranjo [facility] Course Hospital Course: This is 74-year-old female status post mechanical trip and fall at home. presented to the ED with right ankle deformity and right knee pain. she has a history right knee replacement in January [address] Monge here at [facility], CVA with aneurysm,leaving right side weaker, DM not insulin dependent, COPD non oxygen dependent and GI bleed, HTN. Work up in the ED showed a periprosthetic right distal femur fracture and right bimalleolar ankle fracture. Labs in ED unremarkable except elevated WBC likely from trauma. She was admitted to hospitalist service with orthopedic consult. She underwent surgical repair by Dr. Gauthier. post operative course was essentially unremarkable but she did have an episode of lightheadedness POD 1 which resolved by sitting, it occurred after getting up. her vitals and blood sugars where within normal limits. she had no further episodes until the following morning when getting up from the commode after having sat there for a while. again, vitals and blood sugar normal. She has had no further episodes and has been hemodynamically stable. she is eating and drinking well, fitzgerald discontinued and voiding well. did have one elevated temp at 38.6, cxr and ua were negative and there was no source of infection noted so it was thought to be due to postoperative atelactasis and she is encouraged to use I/S. she has had no further fevers. she has been working with physical therapy and slowly progressing. it is advised that she be discharged to [facility] for further rehab. case and discharge plan discussed with Dr Hopkins who is in agreement Home Meds and New Rx's Prescriptions: New enoxaparin [Lovenox] 40 mg/0.4 mL Syringe 40 mg subcut Q24H Qty: 30 RF: 0 polyethylene glycol 3350 17 gram Powder In Packet 17 g PO DAILY PRN PRN (Reason: Constipation) Qty: 0 RF: 0 tramadol 50 mg Tablet 50 mg PO Q6H PRN PRN (Reason: Pain) Qty: 10 RF: 0 docusate sodium [Colace] 100 mg Capsule 100 mg PO TID PRN PRNQty: 0 RF: 0 ascorbic acid (vitamin C) [Vitamin C] 500 mg Tablet 500 mg PO BID Qty: 0 RF: 0 acetaminophen [Tylenol] 325 mg Tablet 650 mg PO Q4H PRN PRNQty: 0 RF: 0 Continued gabapentin 300 mg capsule 300 mg PO BID Qty: 60 RF: 2 multivitamin tablet 1 tab PO DAILY RF: 0 labetalol 200 mg tablet 100 mg PO BID RF: 0 lisinopril 20 mg tablet 20 mg PO BID RF: 0 cyanocobalamin (vitamin B-12) [Vitamin B-12] 500 mcg tablet 500 mcg PO DAILY RF: 0 albuterol sulfate 90 mcg/actuation Hfa Aerosol Inhaler 2 puff INHALATION Q6H PRNRF: 0 albuterol sulfate [Ventolin HFA] 90 mcg/actuation Hfa Aerosol Inhaler 2 puff INHALATION Q6H PRNRF: 0 Farxiga 10 mg Tablet 10 mg PO 5XW RF: 0 Discharge Instructions Instructions: ORIF (DC) Additional Instructions: Emphasize incentive spirometry to reduce atelectasis and chance of another low-grade elevated temperature Optimize medical diabetic glucose control and appreciate property staff accountant's recommendations to optimize healing Right lower extremity protected weightbearing with assist device like walker Physical therapy. Okay to remove knee immobilizer while in bed and perform gentle knee passive and active range of motion. Encourage daily total range of motion for circulation. Out of bed. Must wear knee immobilizer while out of bed. Elevation right lower extremity at the level of the heart while in bed to minimize swelling. Pain control- multimodal SCDs and FRENCH alanis left lower extremity Plan for Lovenox 40 mg daily for 30 days as outpatient DVT prophylaxis. Keep dressings in place and clean and dry until follow-up Continue physical therapy Follow-up outpatient with Dr. Gauthier at [facility] orthopedics in 10 days for dressing care, suture removal, x-rays, and clinical exam. Call Dr Gauthier directly if any questions or concerns Stand Alone Forms: Nursing Discharge Form Referrals: Peng Gauthier MD [ [facility] STAFF PHYSICIAN] - 04/01/20 2:30 pm Activity:: walker Equipment/Supplies:: Walker Diet:: Carb Counting Discharge Orders Discharge Orders: Discharge Order (Routine); Ordered 03/21/20 Ordered By: Aicha Bautista Discharge Data Discharge Date/Time-TO BE ENTERED AT DEPARTURE: 03/21/20 12:25 DS: Summary Status at Discharge Functional status at discharge: uses cane/walker Overall status at discharge: patient is progressing back to baseline Mental Status: mental status grossly normal Speech and Movement: speech and movement normal Mood: congruent mood Affect: normal affect Exam Const General: cooperative, healthy appearing, comfortable, no acute distress and well developed Nutritional Appearance: average body habitus Orientation: alert, awake and oriented x3 HENMT Head: normal to inspection, normocephalic and atraumatic Face and sinus: normal facial exam Mouth: oral mucosae normal Resp Effort & Inspection: normal respiratory effort Auscultation: crackles (bases bilaterally, fine), no rhonchi and no wheezes Cardio Rate: regular rate Rhythm: regular rhythm GI Inspection: normal to inspection Palpation: soft Auscultation: normal bowel sounds General: other (fitzgerald draining clear yellow urine) Skin Lesions: other (surgical wounds not visualized. surgical dressing intact) Rashes: no rashes Neuro General: patient alert, patient awake and patient oriented x3 Cranial Nerves: CN's II-XI intact bilaterally Cognition: normal cognition Speech: speech normal Extrem General: full ROM (limied right a knee immobilizer in place. Short leg plaster intact), normal gait (gait assisted, walker. ) and pedal edema (trace, toes warm, good active rom and movement to toes) bilaterally Psych Mental Status: mental status grossly normal Speech and Movement: speech and movement normal Mood: congruent mood Affect: normal affect DS: Data Vitals/I&O Vitals and I&O: Vital Signs Temperature 37.3 C 03/21/20 07:25 Temperature Source Tympanic 03/21/20 07:25 Pulse 84 03/21/20 07:25 Pulse Rhythm Regular 03/21/20 07:30 Respiratory Rate 18 03/21/20 07:25 Respiratory Effort Non-Labored 03/21/20 07:30 Respiratory Depth Normal 03/21/20 07:30 Respiratory Pattern Normal 03/21/20 07:30 Blood Pressure 151/85 H 03/21/20 07:25 Blood Pressure Mean 88 03/16/20 13:00 Blood Pressure Position Sitting 03/16/20 09:15 Pulse Oximetry 93 L 03/21/20 07:25 Respiratory End-tidal CO2 39 03/17/20 16:35 Oxygen Delivery Method Room Air 03/21/20 07:25 Oxygen Flow Rate 0 03/21/20 07:25 Pain Level 6 03/21/20 09:18 Comment 03/19/20 11:50 Intake & Output 03/20/20 03/20/20 03/21/20 11:59 23:59 11:59 Intake Total 510 / 1130 620 / 1130 890 / 890 Output Total 900 / 2950 2050 / 2950 400 / 400 Balance -390 / -1820 -1430 / -1820 490 / 490 Intake: IV Oral 500 / 1110 610 / 1110 890 / 890 Output: Urine 900 / 2950 2050 / 2950 400 / 400 Other: Urine Color Yellow Yellow Urine Appearance Clear Clear Clear Urine Odor None Normal Normal Comment Patient urinated while using the commode. Stool Size Moderate Small Stool Characteristics Soft Soft Formed Brown Voiding Methods Bedside Commode Bedside Commode Bedside Commode Data Completed and Pending Labs on day of discharge: Labs from last 24 hours 03/20/20 03/20/20 20:50 12:05 Urine Color Yellow Urine Clarity Clear Urine pH 7.0 Ur Specific [place] 1.020 Urine Protein Negative Urine Ketones 40 H Urine Blood Negative Urine Nitrite Negative Urine Bilirubin Negative Urine Urobilinogen 0.2 Ur Leukocyte Esterase Negative Urine Glucose >=1000 H COVID-19 PCR Negative Nasopharyn COVID-19 PCR Not Applicable Ref Test Perform Site Critical access hospital lab [facility] Medical History (Updated 03/20/20 @ 11:12 by Aicha Bautista NP) Arthritis of knee, right (Resolved) CVA (cerebral vascular accident) (Chronic) GI bleed (Chronic) Gout (Chronic) Hiatal hernia (Chronic) History of depression (Chronic) meds in past presently on no rx for depression Hypertension (Chronic) TIM (obstructive sleep apnea) (Chronic) has used cpap in past presently not using Osteoarthritis (Chronic) Surgical History History of appendectomy (Chronic) History of arthroscopic knee surgery (Chronic) History of colonoscopy (Chronic) History of hysterectomy (Chronic) Family History Father Heart disease Social History Smoking/Tobacco Use Status: Never Alcohol Intake: never Drug use: Never Do you feel safe at home: Yes Do you feel safe in your relationship?: Yes Additional Social history:
[2020-03-21] MEDS: oxyCODONE 5 MG TAB PO (10:53)
[2020-03-21 11:06] VITALS: BP 122/72; PULSE 78; RESP 16; TEMP 36.6; O2SAT 95
--- NOTE | 2020-03-21 16:15 | CMDISCH_ITS ---
- If Service Date Differs Date of service: 03/21/20 Time of Service: 16:15 LACE Index Scoring Tool - Questions: Length of Stay (in days): 4 - 6 Acuity (Admit via E.D.?): Yes E.D. Visits: 2 - Answers: Total Score: 9 Risk of Readmission: Low Risk Care Management Discharge Reason for Hospitalization: Periprosthetic fracture, bimalleolar fracture of the righr ankle. Discharge Plan: Ally [facility]. She will be transfered over via wheelchair van. She will plan to return home when she is more indepedent with transfers. CM faxed [facility] PASSR, Covid screening and COVID test results which were neg. Patient/Family Education Needs: Discharge education, coordiantion with [facility] and discharge summary sent. Services Needed at Discharge: Detention Facility
== END 2020-03-21 12:25 | disposition skilled nursing facility (03) | DRG 481 ==
LOC: ER 12:19 → MS 13:14
PROVIDERS: Nurse Practitioner Acute Care; Nurse Practitioner Family; Student in an Organized Health Care Education/Training Program; Admitting Provider Family Medicine; Emergency Provider Physician Assistant; PCP Physician Assistant Medical; Visit Provider Internal Medicine
PROC: 0QSB04Z Reposition Right Lower Femur with Internal Fixation Device, Open Approach (ICD-10-PCS; CPT 27511; principal; 2020-03-17 12:00)
PROC: 0QSB04Z Reposition Right Lower Femur with Internal Fixation Device, Open Approach (ICD-10-PCS; CPT 27511; 2020-03-17 12:00)
DX: S82.841A Displaced bimalleolar fracture of right lower leg, initial encounter for closed fracture (principal); M97.11XA Periprosthetic fracture around internal prosthetic right knee joint, initial encounter; I69.354 Hemiplegia and hemiparesis following cerebral infarction affecting left non-dominant side; S09.90XA Unspecified injury of head, initial encounter; W01.0XXA Fall on same level from slipping, tripping and stumbling without subsequent striking against object, initial encounter; Z96.651 Presence of right artificial knee joint; E11.42 Type 2 diabetes mellitus with diabetic polyneuropathy; Z71.3 Dietary counseling and surveillance; R50.82 Postprocedural fever; R42 Dizziness and giddiness; G89.18 Other acute postprocedural pain; I10 Essential (primary) hypertension; J44.9 Chronic obstructive pulmonary disease, unspecified; I69.398 Other sequelae of cerebral infarction; R20.0 Anesthesia of skin; G47.33 Obstructive sleep apnea (adult) (pediatric)
CPT/HCPCS: 27511; 27814; 36415; 73552; 76942; 80048; 80053; 82306; 85027; 86850; 86900; 86901; 93005; 96365; 96366; 96375; 97110; 97162; 97530; 99222; 99223; 99233; 99239; 99255; 99285; J1650; NC; U0003; 70450; 71046; 73560; 73590; 73600; 73610; 73700; 81003; 81015; 83036; 83735; 85025; 85610; 85730; 93010; J0131; J0690; J1100; J1644; J1885; J2001; J2270; J2405; J2704; J3010; L1830

== ENCOUNTER 2020-04-02 08:19 | Outpatient (CLI) | payer MEDICARE, OTHER, SELFPAY ==
--- NOTE | 2020-04-02 10:45 | DI.RAD_ITS ---
EXAM: XR FEMUR RT and XR ankle RT complete and XR knee RT 2 V AP, Lat CLINICAL HISTORY: ORIF distal femur. TECHNIQUE: 2D digital imaging was performed. COMPARISON: CR,XR XR ANKLE RT COMPLETE from 03/16/2020 CR,XR XR FEMUR RT from 03/16/2020 RF XR ANKLE RT 2V from 03/17/2020 RF XR FEMUR RT from 03/17/2020 FINDINGS: There are again seen plate and screws transfixing the distal right femoral fracture. There is been n o change in alignment of the orthopedic hardware or fracture components noted. There is a stable rig ht total knee replacement. There again seen plate and screws transfixing the distal right fibular an d tibial fractures. Orthopedic hardware and fractures are stable in alignment. No new fractures or dislocations are present. IMPRESSION: Stable distal femoral, fibular and tibial fractures. DATA REPOSITORY: RADIATION DOSE DELIVERED:
== END 2020-04-02 08:39 ==
PROVIDERS: PCP Physician Assistant Medical; Visit Provider Physician Assistant
DX: Z96.651 Presence of right artificial knee joint; S82.841D Displaced bimalleolar fracture of right lower leg, subsequent encounter for closed fracture with routine healing; M97.11XD Periprosthetic fracture around internal prosthetic right knee joint, subsequent encounter; X58.XXXD Exposure to other specified factors, subsequent encounter; I10 Essential (primary) hypertension
CPT/HCPCS: 73552; L4361; 73560; 73610

== ENCOUNTER 2020-05-14 10:10 | Outpatient (CLI) | payer MEDICARE, OTHER, SELFPAY ==
--- NOTE | 2020-05-14 09:45 | DI.RAD_ITS ---
EXAM: XR ANKLE RT COMPLETE CLINICAL HISTORY: fu fracuture TECHNIQUE: COMPARISON: CR XR ANKLE RT COMPLETE from 04/02/2020 FINDINGS: Three views were obtained. Previously described plate and screw fixation of tibiofibular fracture ag ain noted in place. Alignment appears unchanged comparison with examination of April 02. The ankle mortise remains well maintained. IMPRESSION:
--- NOTE | 2020-05-14 10:00 | DI.RAD_ITS ---
EXAM: XR KNEE RT 2V AP,LAT CLINICAL HISTORY: u TECHNIQUE: COMPARISON: CR XR KNEE RT 2V AP,LAT from 04/02/2020 FINDINGS: Two views were obtained and show previously described knee prosthesis in position along with plate an d screw fixation of distal femoral fracture. Alignment appears unchanged comparison with prior radio graphs of April 02. The internal fixation components and arthroplasty components remain well seated. IMPRESSION:
== END 2020-05-14 10:30 ==
PROVIDERS: PCP Physician Assistant Medical; Referring Provider Physician Assistant Medical; Visit Provider Student in an Organized Health Care Education/Training Program
DX: S82.201D Unspecified fracture of shaft of right tibia, subsequent encounter for closed fracture with routine healing (principal); M97.11XD Periprosthetic fracture around internal prosthetic right knee joint, subsequent encounter; S72.401D Unspecified fracture of lower end of right femur, subsequent encounter for closed fracture with routine healing; S82.841D Displaced bimalleolar fracture of right lower leg, subsequent encounter for closed fracture with routine healing; X58.XXXD Exposure to other specified factors, subsequent encounter
CPT/HCPCS: 73560; 73610

== ENCOUNTER 2020-06-05 19:11 | Outpatient (REF) | payer MEDICARE, OTHER, SELFPAY ==
[2020-06-12 10:19] LABS: Fungus Smear No Fungi Seen
== END 2020-06-05 19:31 ==
LOC: NCHCN 19:11
PROVIDERS: PCP Physician Assistant Medical; Visit Provider Nurse Practitioner Family
DX: R21 Rash and other nonspecific skin eruption (principal)
CPT/HCPCS: 87102; 87206

== ENCOUNTER 2020-06-11 11:27 | Outpatient (CLI) | payer MEDICARE, OTHER, SELFPAY ==
--- NOTE | 2020-06-11 10:30 | DI.RAD_ITS ---
EXAM: XR ANKLE RT COMPLETE INDICATION: fu fracture. COMPARISON: CR XR ANKLE RT COMPLETE from 05/14/2020 TECHNIQUE: 2D digital imaging was performed. FINDINGS: Is has been no change in alignment of the orthopedic hardware in the distal tibia and fibula. The ty claudio appear osteopenic from disuse. Some soft tissue swelling remains present. No talar dome defect or ankle mortise widening is seen DATA REPOSITORY: RADIATION DOSE DELIVERED:
--- NOTE | 2020-06-11 10:30 | DI.RAD_ITS ---
EXAM: XR KNEE RT 2V AP,LAT XR KNEE RT 2V AP,LAT level INDICATION: fu fracture. COMPARISON: CR XR KNEE RT 2V AP,LAT from 04/02/2020 CR XR KNEE RT 2V AP,LAT from 05/14/2020 TECHNIQUE: 2D digital imaging was performed. FINDINGS: The right knee prosthesis and distal femoral fixation plate are unchanged in position. There has b een continued healing of the distal femoral fracture. DATA REPOSITORY: RADIATION DOSE DELIVERED:
== END 2020-06-11 11:47 ==
PROVIDERS: PCP Physician Assistant Medical; Referring Provider Physician Assistant Medical; Visit Provider Student in an Organized Health Care Education/Training Program
DX: S82.841D Displaced bimalleolar fracture of right lower leg, subsequent encounter for closed fracture with routine healing; X58.XXXD Exposure to other specified factors, subsequent encounter; M97.11XD Periprosthetic fracture around internal prosthetic right knee joint, subsequent encounter; I10 Essential (primary) hypertension
CPT/HCPCS: 99214; 73560; 73610

== ENCOUNTER 2020-07-07 18:25 | Outpatient (REF) | payer MEDICARE, OTHER, SELFPAY ==
[2020-07-07 20:22] LABS: Calculated LDL 79 mg/dL (<100); Cholesterol 157 mg/dL (<200); HDL Cholesterol 55 mg/dL (40-60); Triglyceride 116 mg/dL (<150)
== END 2020-07-07 18:45 ==
LOC: NCHCN 18:25
PROVIDERS: PCP Physician Assistant Medical; Visit Provider Nurse Practitioner Family
DX: E78.2 Mixed hyperlipidemia (principal)
CPT/HCPCS: 80061

== ENCOUNTER 2020-07-23 16:09 | Observation (INO) | payer MEDICARE, OTHER, SELFPAY ==
[2020-07-23] VITALS (22 sets, daily range): BP systolic 135–166; BP diastolic 73–94; PULSE 76–111; RESP 11–25; TEMP 35.5–37.4; O2SAT 95–98
--- NOTE | 2020-07-23 16:00 | RT.EKG_ITS ---
APPROVED REPORT Exam: Resting ECG Patient Location: E HR:90 bpm ECG Measurements Heart Rate 90 AXIS IL 256 P 60 QRSd 91 QRS -14 QT 382 T 67 QTc 467 Conclusion Sinus rhythm...normal P axis, V-rate 60- 99 Prolonged IL interval...IL >220, V-rate 50- 90 Anterior infarct, old...Q >40mS, abnormal ST-T, V2-V5
--- NOTE | 2020-07-23 16:15 | DI.CT_ITS ---
EXAM: CT BRAIN NECK CTA CLINICAL HISTORY: Pressure left head, speech deficit this a.m.. TECHNIQUE: Imaging Protocol: Axial CT angiography was performed with multi-slice acquisition and mu lti-planar and/or 3D reconstructions. CONTRAST MATERIAL: Intravenous: Omnipaque 350 Contrast volume:structured data in ml COMPARISON: CT CT CHEST PE CTA from 06/18/[address] HEAD WO from 03/16/2020 FINDINGS: CT Head W/O: Ventricles and Extra axial spaces: Normal in size and morphology for the patient's age. No significa nt atrophy. Hemorrhage: None. Cerebral parenchyma: Stable appearance of small bilateral basal ganglia lacunar infarcts. Incidental basal ganglia calcifications. Midline shift: None. Brainstem/Cerebellum: Normal. Calvarium: Normal. Visualized Paranasal sinuses/Mastoids: Mucous retention cyst left maxillary sinus. Soft Tissues: Orbits unremarkable. CTA Brain W: Internal Carotid Arteries: Petrous: Minimal calcification. Cavernous: Normal. Cerebral: Normal. Middle Cerebral Arteries: Right: No aneurysm, occlusion or significant stenosis. Left: No aneurysm, occlusion or significant stenosis. Anterior Cerebral Arteries: Right: No aneurysm, occlusion or significant stenosis. Left: No aneurysm, occlusion or significant stenosis. Posterior cerebral Arteries: Right: No aneurysm, occlusion or significant stenosis. Left: No aneurysm, occlusion or significant stenosis. Vertebral Arteries: Right: No aneurysm, occlusion or significant stenosis. Left: No aneurysm, occlusion or significant stenosis. Basilar Artery: No aneurysm, occlusion or significant stenosis. CTA Neck W: Common Carotid: Right: No aneurysm, occlusion or significant stenosis. Left: No aneurysm, occlusion or significant stenosis. Minimal calcification at the bulb. External Carotid: Right: No aneurysm, occlusion or significant stenosis. Left: No aneurysm, occlusion or significant stenosis. Internal Carotid: Right: No aneurysm, occlusion or significant stenosis. Left: No aneurysm, occlusion or significant stenosis. Vertebral Artery: Right: No aneurysm, occlusion or significant stenosis. Left: No aneurysm, occlusion or significant stenosis. Lung Apices: Normal. Bones: Mild degenerative disc changes and facet degenerative changes. Soft Tissues: Normal. IMPRESSION: 1. Unremarkable CTA examination of the [place]. 2. Noncontrast CT head: Stable small bilateral lacunar infarcts.. 3. Unremarkable CTA examination of the neck. No significant carotid or vertebral stenosis. RADIATION DOSE DELIVERED: LINK-TO-SR Total DLP 993.39mGy.cm Total DLP DATA REPOSITORY: All CT scans at this facility are submitted to the National Radiology Data Registry (NRDR) Dose Index Registry (DIR) with the [employer] (ACR). RADIATION OPTIMIZATION: All CT scans at this facility use at least one of these dose optimization te chniques: automated exposure control; mA and/or kV adjustment per patient size (includes targeted exa ms where dose is matched to clinical indication); or iterative reconstruction.
[2020-07-23 16:36] LABS: Abs Immature Grans 0.04 10^3/uL (0.0-0.06); Absolute Basophil Count 0.08 10^3/uL (0.0-0.2); Absolute Eosinophil Count 0.14 10^3/uL (0.0-0.7); Absolute Lymphocyte Count 2.03 10^3/uL (1.2-3.4); Absolute Monocyte Count 0.58 10^3/uL (0.1-0.8); Basophils % 0.9; Eosinophils % 1.5; HGB 15.7 g/dL (11.2-15.7); Immature Grans % 0.4; Lymphocytes % 22.1; MCH 27.6 pg (27.0-33.0); MCHC 31.4 % (32.0-36.0); MCV 87.9 fL (80-95); MPV 9.9 fL (8.0-11.0); Monocytes % 6.3; Neutrophils % 68.8; Nucleated RBC 0 %; Platelet Count 276 10^3/uL (130-400); RBC 5.69 10^6/uL (3.93-5.22); RDW-SD 47.7 fL; WBC 9.17 10^3/uL (4.4-10.8)
--- NOTE | 2020-07-23 16:44 | ED.GENADUL_ITS ---
Discharge Plan Disposition Patient Disposition: [facility] INPATIENT Condition: Serious Discharge Details Clinical Impression: CVA (cerebral vascular accident) Primary Care Provider: Ximena Graham ED Provider: Jovanni Haley Home Meds and New Rx's Prescriptions: No Action clotrimazole-betamethasone 1-0.05 % cream 1 applic topical BID 28 Days Qty: 45 RF: 1 multivitamin tablet 1 tab PO DAILY RF: 0 labetalol 200 mg tablet 100 mg PO HS RF: 0 lisinopril 20 mg tablet 20 mg PO BID RF: 0 cyanocobalamin (vitamin B-12) [Vitamin B-12] 500 mcg tablet 500 mcg PO DAILY RF: 0 (DME) Bryant walker See Rx Instructions .Route .MEDSUPPLY Qty: 1 RF: 0 albuterol sulfate [Ventolin HFA] 90 mcg/actuation Hfa Aerosol Inhaler 2 puff INHALATION Q6H PRNRF: 0 ascorbic acid (vitamin C) [Vitamin C] 500 mg Tablet 500 mg PO BID Qty: 0 RF: 0 labetalol 200 mg tablet 200 mg PO QAM RF: 0 glipizide 10 mg tablet extended release 24hr 10 mg PO DAILY RF: 0 acetaminophen [Acetaminophen Extra Strength] 500 mg Tablet 500 mg PO Q6H PRNRF: 0 amlodipine 10 mg tablet 10 mg PO DAILY RF: 0 estradiol 0.01 % (0.1 mg/gram) cream 1 applic VAGINAL BID RF: 0 rosuvastatin 10 mg tablet 10 mg PO DAILY RF: 0 Co Q-10 300 mg Capsule 300 mg PO DAILY RF: 0 cholecalciferol (vitamin D3) [Vitamin D3] 50 mcg (2,000 unit) Capsule 50 mcg PO DAILY RF: 0 oxycodone 5 mg capsule 5 mg PO TID PRN MDD 20mg PRN (Reason: pain, severe) RF: 0 gabapentin 300 mg capsule 300 mg PO TID RF: 0 Medical Decision Making 1450??75-year-old female with history of prior CVA and intracranial aneurysmal bleed, residual right-sided weakness and sensory deficit, here with left-sided head discomfort, episode of difficulty with speech this morning, now resolved, and hypertension. Consider CVA versus aneurysmal bleed. Plan to obtain stat CT of the head and CTA of the head and neck. Screening ECG was reviewed and interpreted by me: Please see report, sinus rhythm 90 bpm, prolonged VT interval 256, QTc 467, no STEMI, flattened T wave in aVL which is old compared to prior. 18:10 --CT angiography of the head interpreted by radiology: No large vessel stenosis or occlusion or acute disease. Incidental findings include chronic scattered areas of subcortical gliosis and left maxillary mucous retention. CT angiography of the neck was interpreted by radiology: No stenosis or occlusion. Patient reassessed and remained stable. She notes that she does not have any pain and just has an odd sensation in her head. BP improved 150/79. Plan to admit for TIA. 1829--Dr. Gibbs here seen the patient and will admit. Care transition to Dr. Gibbs. Medical Records Medical records reviewed: Yes I reviewed the patient's medical records. HPI General Mode of arrival: ambulatory . Date/Time Provider Initiated Documentation: 07/23/20 16:22 . Limitations to Documentation: no limitations . Information obtained by: patient and EMS . HPI Narrative: 75-year-old female presents with chief complaint of discomfort in her head. She notes a feeling of fullness in her left head that started earlier today and has persisted. Discomfort is moderate to severe. She is concerned that sensation is similar to prior intracranial aneurysmal leak in 2014 when she had CVA. Patient has residual right-sided weakness from prior CVA. Patient does note that this morning she had an episode that lasted about 15 minutes where she had difficulty speaking. No associated numbness or weakness that is changed from her baseline. No associated chest pain or shortness of breath. Patient does note that last night she had some severe pain behind her right eye. No visual changes. This has since resolved. Patient also notes that her blood pressure was elevated today with systolic greater than 200 and that this is why she called EMS. Related Data Home Medications Medication Instructions Recorded Confirmed cyanocobalamin (vitamin B-12) 500 500 mcg PO DAILY 07/11/18 07/23/20 mcg tablet labetalol 200 mg tablet 100 mg PO HS 07/11/18 07/23/20 lisinopril 20 mg tablet 20 mg PO BID tab 07/11/18 07/23/20 multivitamin 1 tab PO DAILY 07/11/18 07/23/20 albuterol sulfate [Ventolin HFA] 2 puff INHALATION Q6H PRN 06/18/19 07/23/20 ascorbic acid (vitamin C) [Vitamin 500 mg PO BID #0 tab 03/21/20 07/23/20 C] Bryant iraheta #1 ea 06/05/20 07/17/20 clotrimazole-betamethasone 1 1 applic TOPICAL BID 28 Days #45 g 06/18/20 07/23/20 %-0.05 % topical cream acetaminophen [Acetaminophen Extra 500 mg PO Q6H PRN 07/23/20 07/23/20 Strength] amlodipine 10 mg PO DAILY 07/23/20 07/23/20 cholecalciferol (vitamin D3) 50 mcg PO DAILY 07/23/20 07/23/20 [Vitamin D3] coenzyme Q10 [Co Q-10] 300 mg PO DAILY 07/23/20 07/23/20 estradiol 1 applic VAGINAL BID 07/23/20 07/23/20 gabapentin 300 mg PO TID 07/23/20 07/23/20 glipizide 10 mg PO DAILY 07/23/20 07/23/20 labetalol 200 mg PO QAM 07/23/20 07/23/20 oxycodone 5 mg PO TID PRN PRN MDD 20mg 07/23/20 07/23/20 rosuvastatin 10 mg PO DAILY 07/23/20 07/23/20 Previous Rx's Medication Instructions Recorded ascorbic acid (vitamin C) [Vitamin 500 mg PO BID #0 tab 03/21/20 C] Bryant iraheta #1 ea 06/05/20 clotrimazole-betamethasone 1 1 applic TOPICAL BID 28 Days #45 g 06/18/20 %-0.05 % topical cream Allergies Allergy/AdvReac Type Severity Reaction Status Date / Time aspirin Allergy Severe GI Bleed Verified 07/23/20 16:18 ibuprofen [From Motrin] Allergy Severe GI Bleed Verified 07/23/20 16:18 Tetracyclines Allergy Severe Makes my Verified 07/23/20 16:18 skin peel and throat close up buspirone Allergy Unknown Verified 07/23/20 16:18 codeine Allergy Unknown Verified 07/23/20 16:18 pentazocine [From Talwin] Allergy Unknown Verified 07/23/20 16:18 sulfamethoxazole Allergy Unknown Verified 07/23/20 16:18 [From Bactrim] trimethoprim [From Bactrim] Allergy Unknown Verified 07/23/20 16:18 ciprofloxacin [From Cipro] AdvReac Severe made my Verified 07/23/20 16:18 stomach bleed duloxetine [From Cymbalta] AdvReac Severe made me Verified 07/23/20 16:18 sick and suicidal gabapentin AdvReac Severe Makes me Verified 07/23/20 16:18 want to commit suicide prednisone AdvReac Severe Raises BP Verified 07/23/20 16:18 and blood sugar per Pt tramadol AdvReac Severe major GI Verified 07/23/20 16:18 upset oxycodone [From Percocet] AdvReac Unknown Verified 07/23/20 16:18 propoxyphene AdvReac Unknown Verified 07/23/20 16:18 [From Darvocet-N] General Stated Complaint: CVA/TIA RADHA: 2 Review of Systems All systems reviewed & are unremarkable except as noted in HPI and below Cardiovascular Cardiovascular: Reports as per HPI Neurologic Neurologic: Reports as per HPI PFSH Medical History (Updated 07/23/20 @ 18:12 by Jovanni Haley MD) Arthritis of knee, right CVA (cerebral vascular accident) GI bleed Gout Hiatal hernia History of depression meds in past presently on no rx for depression Hypertension TIM (obstructive sleep apnea) has used cpap in past presently not using Osteoarthritis Surgical History History of appendectomy History of arthroscopic knee surgery History of colonoscopy History of hysterectomy Family History Father Heart disease Social History Smoking/Tobacco Use Status: Never Alcohol Intake: never Drug use: Never Household members: none current occupation: retired. Current gender identity: female Do you feel safe at home: Yes Do you feel safe in your relationship?: Yes Additional Social history: Female Reproductive History Menstrual Menopause type: surgical Exam Const General: cooperative and no acute distress HENAK Head: normocephalic and atraumatic Mouth: moist mucous membranes Eyes Conjunctivae: normal conjunctivae Sclera: normal sclerae Pupils: PERRL EOM: EOM abnormal (Difficulty with left upper gaze) Neck Neck: trachea midline and supple Resp Auscultation: clear to auscultation bilaterally, no rales, no rhonchi and no wheezes Cardio Rate: regular rate and not tachycardic Rhythm: regular rhythm GI Palpation: soft, not firm, no guarding, no masses, not rigid and nontender Skin General skin exam: no rashes or lesions noted Neuro General: patient alert, patient awake, patient oriented x3 and tone normal Cranial Nerves: accommodation normal, facial strength normal and tongue midline Cognition: normal cognition Speech: speech normal Motor: strength not 5/5 throughout and other (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, 4- 5 strength proximal right upper ext ) Sensory Exam: other (Diminished sensation RUE and RLE comapred to left (chronic)) Extrem General: no edema Psych Appearance: grossly normal Mental Status: mental status grossly normal Speech and Movement: speech and movement normal Course Vital Signs Vital signs: Vital Signs Temperature 37.4 C 07/23/20 16:10 Pulse 92 H 07/23/20 16:10 Respiratory Rate 16 07/23/20 16:10 Blood Pressure 166/94 H 07/23/20 16:10 Pulse Oximetry 98 07/23/20 16:10 Temperature 37.4 C 07/23/20 16:10 Temperature Source Temporal Artery Scan 07/23/20 16:10 Pulse 92 H 07/23/20 16:10 Respiratory Rate 16 07/23/20 16:10 Respiratory Effort 07/23/20 16:31 Blood Pressure 166/94 H 07/23/20 16:10 Blood Pressure Position Supine 07/23/20 16:10 Pulse Oximetry 98 07/23/20 16:10 Oxygen Delivery Method Room Air 07/23/20 16:10 Oxygen Flow Rate 0 07/23/20 16:10 Pain Level 8 07/23/20 16:10 Lab/Test Results Lab/Test Results: Laboratory Tests Range/Units 07/23/20 16:20 WBC (4.4-10.8) 10^3/uL 9.17 RBC (3.93-5.22) 10^6/uL 5.69 H Hgb (11.2-15.7) g/dL 15.7 Hct (36.0-46.0) % 50.0 H MCV (80-95) fL 87.9 MCH (27.0-33.0) pg 27.6 MCHC (32.0-36.0) % 31.4 L RDW (11.7-14.6) % 15.0 H Plt Count (130-400) 10^3/uL 276 MPV (8.0-11.0) fL 9.9 Immature Gran % 0.4 Neutrophils % 68.8 Lymphocytes % 22.1 Monocytes % 6.3 Eosinophils % 1.5 Basophils % 0.9 Nucleated RBC % % 0 Absolute Neutrophils (1.2-6.7) 10^3/uL 6.30 Absolute Lymphocytes (1.2-3.4) 10^3/uL 2.03 Absolute Monocytes (0.1-0.8) 10^3/uL 0.58 Absolute Eosinophils (0.0-0.7) 10^3/uL 0.14 Absolute Basophils (0.0-0.2) 10^3/uL 0.08
[2020-07-23 16:54] LABS: ALT 28 U/L (14-59); AST 35 U/L (15-37); Albumin 4.2 g/dL (3.4-5.0); Alkaline Phosphatase 112 U/L (46-116); Anion Gap 10.7 mmol/L (3-11); BUN 12 mg/dL (7-18); Bilirubin, Total 0.7 mg/dL (0.2-1.0); CO2 25.3 mmol/L (21.0-32.0); CREATININE 0.55 mg/dL (0.55-1.02); Calcium 9.6 mg/dL (8.5-10.1); Chloride 103 mmol/L (98-107); Glucose 133 mg/dL (74-106); Potassium 4.3 mmol/L (3.5-5.1); Sodium 139 mmol/L (136-145); Total Protein 8.2 g/dL (6.4-8.2); Troponin I < 0.05 ng/mL (<0.06)
[2020-07-23] MEDS: Omnipaque 350 MG/ML 100 ML BTL IJ (17:09)
[2020-07-23] MEDS: Normal Saline Flush 10 ML SYR IVP (17:10)
[2020-07-23] MEDS: Normal Saline - Diluent 50 ML VIAL IV (17:11)
--- NOTE | 2020-07-23 17:19 | DI.VRAD_ITS ---
PROCEDURE INFORMATION: Exam: CT Head Without Contrast Exam date and time: 07/23/2020 4:24 PM Age: 75 years old Clinical indication: Other: Pressure left head, speech deficit this a. M. ; Additional info: Please read CT head non-contrast as well TECHNIQUE: Imaging protocol: Computed tomography of the head without contrast. 3D rendering (Not supervised by radiologist): MIP and/or 3D reconstructed images were created by the technologist. Other technique: STROKE PROTOCOL was implemented. COMPARISON: CT HEAD WO 03/16/2020 3:09 PM FINDINGS: Brain: Similar faint bilateral basal ganglia calcifications considered benign. No mass, intracranial hemorrhage, brain edema or transcortical defect. There are scattered areas chronic technically nonspecific subcortical white matter hypoattenuation. Tiny round defects in bilateral basal ganglia, old lacunar infarcts versus enlarged perivascular spaces. Cerebral ventricles: No ventriculomegaly. Bones/joints: Normal. Paranasal sinuses: Visualized sinuses are unremarkable. No fluid levels. Mastoid air cells: Normal. Vasculature: Bilateral carotid atherosclerosis and focal calcification in the right vertebral artery. Soft tissues: Unremarkable. IMPRESSION: Atherosclerosis and scattered areas of chronic subcortical gliosis but no findings suspicious for acute brain infarct or other acutely concerning abnormality. ASSESSMENT: ASPECTS ([place] Stroke Program Early CT Score) is 10. Dictated and Authenticated by: Orion Byrd MD. Ordering:ENIO aBig MD
--- NOTE | 2020-07-23 18:15 | DI.RAD_ITS ---
EXAM: XR PORTABLE CHEST AP CLINICAL HISTORY: cva TECHNIQUE: 2D digital imaging was performed. COMPARISON: CR XR CHEST 2V PA LATERAL from 03/20/2020 FINDINGS: LUNGS: Scattered tiny calcified pulmonary nodules, otherwise clear. No pleural abnormality seen. HEART: Mildly enlarged, stable. MEDIASTINUM: Mildly tortuous aorta. OTHER FINDINGS: None. IMPRESSION: No acute pulmonary findings. DATA REPOSITORY: RADIATION DOSE DELIVERED:
--- NOTE | 2020-07-23 18:23 | NUR.NOTE ---
pt is sitting up eating her dinner. Nursing Note:
--- NOTE | 2020-07-23 18:38 | W.PM.HP.N ---
Date of service: 07/23/20 Time of Service: 18:38 Assessment and Plan Assessment and plan (1) Aphasia: Status: Acute Assessment and plan: Transient aphasia, would have to consider this TIA. The report of episodic palpitations raised question of PAF, though at this point none has been observed on tely. In any case I would tend to agree that withholding of antiplatelet agent is probably wisest in light of history, but will try to obtain old records ([place], [place]). In meantime will plan on MRI in AM and monitor telemetry. 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 has also had other unspecified strokes. She is not on antiplatelet agents due to aneurysmal lesion she reports. This AM noted vague and uncharacterizable sense of the left side of her head being off, followed by 15 minutes of inability to get words out, though she did know what she wished to say and was able to comprehend what was being said to her (by her partner). Has also noted though the day periods where her heart seems to be going fast (timed it once at 110), though unknown if it was in any way irregular. In ER w/u of note for negative CTA and unremarkable labs, with EKG w/o acute findings (old septal LA). At present feels her usual self. Note that this includes baseline right hemiparesis. Admitted for further management and evaluation. Note that due to h/o leaking aneurysm no antiplatelet agent has been administered. Review of Systems All systems reviewed & are unremarkable except as noted in HPI and below PFSH Medical History (Updated 07/23/20 @ 18:47 by Abraham Gibbs MD) Arthritis of knee, right CVA (cerebral vascular accident) GI bleed Gout Hiatal hernia History of depression meds in past presently on no rx for depression Hypertension TIM (obstructive sleep apnea) has used cpap in past presently not using Osteoarthritis Surgical History History of appendectomy History of arthroscopic knee surgery History of colonoscopy History of hysterectomy Family History Father Heart disease Social History Smoking/Tobacco Use Status: Never Alcohol Intake: never Drug use: Never Household members: none current occupation: retired. Current gender identity: female Do you feel safe at home: Yes Do you feel safe in your relationship?: Yes Additional Social history: Female Reproductive History Menstrual Menopause type: surgical Meds Home Medications and Allergies Home Medications Medication Instructions Recorded Confirmed Type cyanocobalamin (vitamin B-12) 500 500 mcg PO DAILY 07/11/18 07/23/20 History mcg tablet labetalol 200 mg tablet 100 mg PO HS 07/11/18 07/23/20 History lisinopril 20 mg tablet 20 mg PO BID tab 07/11/18 07/23/20 History multivitamin 1 tab PO DAILY 07/11/18 07/23/20 History albuterol sulfate [Ventolin HFA] 2 puff INHALATION Q6H PRN 06/18/19 07/23/20 History ascorbic acid (vitamin C) [Vitamin 500 mg PO BID #0 tab 03/21/20 07/23/20 Rx C] Tall walker #1 ea 06/05/20 07/17/20 Rx clotrimazole-betamethasone 1 1 applic TOPICAL BID 28 Days #45 g 06/18/20 07/23/20 Rx %-0.05 % topical cream acetaminophen [Acetaminophen Extra 500 mg PO Q6H PRN 07/23/20 07/23/20 History Strength] amlodipine 10 mg PO DAILY 07/23/20 07/23/20 History cholecalciferol (vitamin D3) 50 mcg PO DAILY 07/23/20 07/23/20 History [Vitamin D3] coenzyme Q10 [Co Q-10] 300 mg PO DAILY 07/23/20 07/23/20 History estradiol 1 applic VAGINAL BID 07/23/20 07/23/20 History gabapentin 300 mg PO TID 07/23/20 07/23/20 History glipizide 10 mg PO DAILY 07/23/20 07/23/20 History labetalol 200 mg PO QAM 07/23/20 07/23/20 History oxycodone 5 mg PO TID PRN PRN MDD 20mg 07/23/20 07/23/20 History rosuvastatin 10 mg PO DAILY 07/23/20 07/23/20 History Allergies Allergy/AdvReac Type Severity Reaction Status Date / Time aspirin Allergy Severe GI Bleed Verified 07/23/20 16:18 ibuprofen [From Motrin] Allergy Severe GI Bleed Verified 07/23/20 16:18 Tetracyclines Allergy Severe Makes my Verified 07/23/20 16:18 skin peel and throat close up buspirone Allergy Unknown Verified 07/23/20 16:18 codeine Allergy Unknown Verified 07/23/20 16:18 pentazocine [From Talwin] Allergy Unknown Verified 07/23/20 16:18 sulfamethoxazole Allergy Unknown Verified 07/23/20 16:18 [From Bactrim] trimethoprim [From Bactrim] Allergy Unknown Verified 07/23/20 16:18 ciprofloxacin [From Cipro] AdvReac Severe made my Verified 07/23/20 16:18 stomach bleed duloxetine [From Cymbalta] AdvReac Severe made me Verified 07/23/20 16:18 sick and suicidal gabapentin AdvReac Severe Makes me Verified 07/23/20 16:18 want to commit suicide prednisone AdvReac Severe Raises BP Verified 07/23/20 16:18 and blood sugar per Pt tramadol AdvReac Severe major GI Verified 07/23/20 16:18 upset oxycodone [From Percocet] AdvReac Unknown Verified 07/23/20 16:18 propoxyphene AdvReac Unknown Verified 07/23/20 16:18 [From Darvocet-N] Exam Narrative Exam Narrative: 159/86, 84, 37.4, 12, 96% RA. HEENT atraumatic; neck supple w/o bruits; lungs clear; heart RRR w/o MRG; abdomen soft and NT extremities w/o edema, pulses 2+/=; neuro Ox3, language fluent; CN intact; motor 4/5 right hemiparesis Results Labs Result diagrams: 07/23/20 16:20 07/23/20 16:20 Labs: Laboratory Results - last 24 hr 07/23/20 07/23/20 07/23/20 16:20 16:20 16:47 WBC 9.17 RBC 5.69 H Hgb 15.7 Hct 50.0 H MCV 87.9 MCH 27.6 MCHC 31.4 L RDW 15.0 H Plt Count 276 MPV 9.9 Immature Gran % 0.4 Neutrophils % 68.8 Lymphocytes % 22.1 Monocytes % 6.3 Eosinophils % 1.5 Basophils % 0.9 Nucleated RBC % 0 Absolute Neutrophils 6.30 Absolute Lymphocytes 2.03 Absolute Monocytes 0.58 Absolute Eosinophils 0.14 Absolute Basophils 0.08 Sodium 139 Cancelled Potassium 4.3 Cancelled Chloride 103 Cancelled Carbon Dioxide 25.3 Cancelled Anion Gap 10.7 Cancelled BUN 12 Cancelled Creatinine 0.55 Cancelled Estimated GFR/1.73 m2 >= 60.00 Cancelled Glucose 133 H Cancelled Calcium 9.6 Cancelled Total Bilirubin 0.7 Cancelled AST 35 Cancelled ALT 28 Cancelled Alkaline Phosphatase 112 Cancelled Troponin I < 0.05 Cancelled Total Protein 8.2 Cancelled Albumin 4.2 Cancelled 07/23/20 19:47 WBC RBC Hgb Hct MCV MCH MCHC RDW Plt Count MPV Immature Gran % Neutrophils % Lymphocytes % Monocytes % Eosinophils % Basophils % Nucleated RBC % Absolute Neutrophils Absolute Lymphocytes Absolute Monocytes Absolute Eosinophils Absolute Basophils Sodium Potassium Chloride Carbon Dioxide Anion Gap BUN Creatinine Estimated GFR/1.73 m2 Glucose Calcium Total Bilirubin AST ALT Alkaline Phosphatase Troponin I Cancelled Total Protein Albumin Last Vital Signs Temp 37.4 C 07/23/20 16:10 Pulse 84 07/23/20 17:54 Resp 12 07/23/20 17:54 BP 159/86 H 07/23/20 17:54 Pulse Ox 96 07/23/20 17:54 COVID-19 Screening Have you,or household,traveled outside [place] in last 14 days?: No Had IN PERSON contact w/suspected or confirmed C-19 person: No
--- NOTE | 2020-07-23 19:08 | DI.VRAD_ITS ---
PROCEDURE INFORMATION: Exam: XR Chest, 1 View Exam date and time: 07/23/2020 6:51 PM Age: 75 years old Clinical indication: Other: Chest pain; Additional info: Please read CT head non-contrast as well TECHNIQUE: Imaging protocol: XR of the chest Views: 1 view. COMPARISON: CR XR CHEST 2V PA LATERAL 03/20/2020 9:45 AM FINDINGS: Lungs: Multiple tiny calcified pulmonary nodules are seen throughout the lungs bilaterally. No focal pulmonary infiltrate or pulmonary edema. Pleural space: No pleural effusion or pneumothorax. Heart/Mediastinum: The cardiac silhouette is mildly enlarged. Bones/joints: Unremarkable. Other findings: The patient is significantly rotated. IMPRESSION: No radiographic evidence for acute cardiopulmonary process. No significant change from the prior study. Rotated exam. Dictated and Authenticated by: Ayana Prado MD. Ordering:ENIO Baig MD
[2020-07-23] MEDS: Lisinopril 20 MG TAB PO (20:59)
[2020-07-23] MEDS: Labetalol 100 MG TAB PO (21:02)
[2020-07-23] MEDS: Acetaminophen 325 MG TAB 650 MG PO (21:05)
[2020-07-23] MEDS: Melatonin 3 MG TAB PO (23:53)
--- NOTE | 2020-07-24 | DI.MRI_ITS ---
EXAM: MR BRAIN WO CLINICAL HISTORY: TIA. TECHNIQUE: Multiplanar multisequence MRI of the brain was performed. CONTRAST MATERIAL: Noncontrast COMPARISON: CT CT BRAIN NECK CTA from 07/23/2020 FINDINGS: VENTRICLES AND EXTRA AXIAL SPACES: Normal in size and morphology for the patient's age. HEMORRHAGE: None. CEREBRAL PARENCHYMA: No focus of restricted diffusion to suggest acute infarct. No space-occupying le alexandro identified. Mild atrophy and prominent perivascular spaces. Basal ganglia calcifications. Sca ttered tiny punctate low signal foci seen on susceptibility weighted images consistent with sequela o f previous microhemorrhages. Patchy areas of high signal in the white matter consistent with sequela of chronic microvascular ischemia. MIDLINE SHIFT: None. BRAINSTEM/CEREBELLUM: Normal. CALVARIUM: Diffuse skull thickening. There is red marrow replacement. Findings could be seen with a anemia VISUALIZED PARANASAL SINUSES/MASTOIDS: Mucous retention cyst left maxillary sinus, otherwise clear The vascular flow voids appear intact. The orbits and pituitary are unremarkable. IMPRESSION: Prominent white matter changes of small vessel disease. Evidence of previous scattered microhemorrha ges. No evidence of acute infarct. DATA REPOSITORY:
[2020-07-24 07:31] VITALS: BP 176/82; PULSE 68; RESP 17; TEMP 36.3; O2SAT 96
[2020-07-24] MEDS: Labetalol 100 MG TAB 200 MG PO (09:04)
[2020-07-24] MEDS: amLODIPine 10 MG TAB PO (09:05)
[2020-07-24] MEDS: Lisinopril 20 MG TAB PO ×2 (09:06→20:22)
[2020-07-24] MEDS: Normal Saline Flush 10 ML SYR IVP (09:06)
[2020-07-24] MEDS: Rosuvastatin 10 MG TAB PO (09:06)
[2020-07-24 09:11] LABS: Calculated LDL 90 mg/dL (<100); Cholesterol 168 mg/dL (<200); HDL Cholesterol 59 mg/dL (40-60); Triglyceride 97 mg/dL (<150)
[2020-07-24] MEDS: Acetaminophen 325 MG TAB 650 MG PO (09:33)
[2020-07-24 09:36] LABS: Hemoglobin A1C 8.1 % (<5.7)
[2020-07-24 12:10] VITALS: BP 151/73; PULSE 66; RESP 18; TEMP 36.9; O2SAT 98
[2020-07-24] MEDS: Insulin Aspart 300 UNITS/3 ML PEN SC (12:25)
[2020-07-24] MEDS: Clopidogrel 300 MG TAB PO (12:48)
--- NOTE | 2020-07-24 12:54 | W.PM.PROGNOT ---
Date of Service Date of service: 07/24/20 Time of Service: 12:54 Assessment and Plan Assessment and plan (1) Aphasia: Start date: 07/24/20 Start time: 12:57 Status: Acute Assessment and plan: TIA symptoms that resolved. MRI negative for acute infarct. History of microhemorhhages. Lipids in range on low dose statin Will start plavix, asa gives her GI bleeding Echo with bubble study r/o PAF PTOT A1c elevated at 8.1-diabetic consult Neuro consult possible discharge home in am (2) Neuropathy: Start date: 07/24/20 Start time: 12:59 Status: Acute Assessment and plan: Gabapentin po TID. (3) Hypertension: Start date: 07/24/20 Start time: 13:02 Status: Chronic Assessment and plan: Continue hypertensive medications. Above case discussed with Dr. Strickland who is in agreement. Subjective Subjective Interval history since last seen: Symptoms resolved. Feeling better. Lipid panel within range. PT/OT to evaluate for home PT vs outpatient. Possible discharge in am. Exam Narrative Exam Narrative: RA. HEENT atraumatic; neck supple w/o bruits; lungs clear; heart RRR w/o MRG; abdomen soft and NT extremities w/o edema, pulses 2+/=; neuro Ox3, language fluent; CN intact; motor 4/5 right hemiparesis Objective Last Vital Signs Temp 36.3 C L 07/24/20 07:31 Pulse 68 07/24/20 07:31 Resp 17 07/24/20 07:31 BP 176/82 H 07/24/20 07:31 Pulse Ox 96 07/24/20 07:31 Laboratory Results - last 24 hr 07/23/20 07/23/20 07/23/20 16:20 16:20 16:20 WBC 9.17 RBC 5.69 H Hgb 15.7 Hct 50.0 H MCV 87.9 MCH 27.6 MCHC 31.4 L RDW 15.0 H Plt Count 276 MPV 9.9 Immature Gran % 0.4 Neutrophils % 68.8 Lymphocytes % 22.1 Monocytes % 6.3 Eosinophils % 1.5 Basophils % 0.9 Nucleated RBC % 0 Absolute Neutrophils 6.30 Absolute Lymphocytes 2.03 Absolute Monocytes 0.58 Absolute Eosinophils 0.14 Absolute Basophils 0.08 Sodium 139 Potassium 4.3 Chloride 103 Carbon Dioxide 25.3 Anion Gap 10.7 BUN 12 Creatinine 0.55 Estimated GFR/1.73 m2 >= 60.00 Glucose 133 H Hemoglobin A1c 8.1 H Calcium 9.6 Total Bilirubin 0.7 AST 35 ALT 28 Alkaline Phosphatase 112 Troponin I < 0.05 Total Protein 8.2 Albumin 4.2 Triglycerides 97 Total Cholesterol 168 LDL Cholesterol, Calc 90 HDL Cholesterol 59 07/23/20 07/23/20 16:47 19:47 WBC RBC Hgb Hct MCV MCH MCHC RDW Plt Count MPV Immature Gran % Neutrophils % Lymphocytes % Monocytes % Eosinophils % Basophils % Nucleated RBC % Absolute Neutrophils Absolute Lymphocytes Absolute Monocytes Absolute Eosinophils Absolute Basophils Sodium Cancelled Potassium Cancelled Chloride Cancelled Carbon Dioxide Cancelled Anion Gap Cancelled BUN Cancelled Creatinine Cancelled Estimated GFR/1.73 m2 Cancelled Glucose Cancelled Hemoglobin A1c Calcium Cancelled Total Bilirubin Cancelled AST Cancelled ALT Cancelled Alkaline Phosphatase Cancelled Troponin I Cancelled Cancelled Total Protein Cancelled Albumin Cancelled Triglycerides Total Cholesterol LDL Cholesterol, Calc HDL Cholesterol
[2020-07-24] MEDS: Gabapentin 300 MG CAP PO ×2 (14:16→20:22)
--- NOTE | 2020-07-24 14:20 | DI.US_ITS ---
APPROVED REPORT EXAM: Comprehensive 2D, Doppler, and color-flow Echocardiogram Patient Location: In-Patient Room/Bed: 225 Home Coordinator: Laura Haynes RDCS (AE) Indications: TIA Echo Enhancing Agent Agent(s) / Amount(s) Used: Agitated Saline 40.0 cc Other Information Study Quality: Adequate Conclusion Left Ventricle : The left ventricle is normal size. The left ventricular systolic function is normal. The left ventricular ejection fraction is within the normal range. There is normal left ventricular wall thickness. There is normal LV segmental wall motion. The left ventricular diastolic function is normal. LVEF is 50%. Right Ventricle : Right ventricle is borderline dilated. The right ventricular systolic function is n ormal. The RVSP is 18.7 mmHg. Atria : The left atrium size is normal. The right atrium size is normal. The interatrial septum is in tact with no evidence for an atrial septal defect. Saline bubble contrast intravenous injection does not demonstrate PFO. Valves: There are no hemodynamically significant valvular lesions. Great Vessels : The aortic root is normal in size. The ascending aorta is mildly dilated. Aortic arch is normal in caliber. IVC is normal in size and collapses >50% with inspiration. Please see remainder of study for further details. Wall motion Left Ventricle The left ventricle is normal size. The left ventricular systolic function is normal. The left ventric ular ejection fraction is within the normal range. There is normal left ventricular wall thickness. T here is normal LV segmental wall motion. The left ventricular diastolic function is normal. There is no ventricular septal defect visualized. LVEF is 50%. Right Ventricle Right ventricle is borderline dilated. The right ventricular systolic function is normal. The RVSP is 18.7 mmHg. Atria The left atrium size is normal. The right atrium size is normal. The interatrial septum is intact wit h no evidence for an atrial septal defect. Saline bubble contrast intravenous injection does not demo nstrate PFO. Aortic Valve The Aortic valve is sclerotic. Aortic valve is trileaflet. There is no aortic valvular stenosis. No a ortic regurgitation is present. Mitral Valve Mild mitral annular calcification. No evidence of mitral valve stenosis. Trace mitral regurgitation. Tricuspid Valve The tricuspid valve is normal in structure. There is no tricuspid valve stenosis. Trace tricuspid reg urgitation. Pulmonic Valve Pulmonic valve is grossly normal in structure. There is no pulmonic valvular stenosis. There is no pu lmonic valvular regurgitation. Great Vessels The aortic root is normal in size. The ascending aorta is mildly dilated. Aortic arch is normal in ca liber. IVC is normal in size and collapses >50% with inspiration. Pericardium There is no pericardial effusion. 2D Dimensions IVSD d PLAX 1.04 cm F: 0.6-1.0 LV Vol A2C d MOD 81.6 mL LVPW d PLAX 1.00 cm F: 0.6 - 1.0 LV Vol A4C d MOD 95.0 mL LVID d PLAX 4.56 cm F: 3.8 - 5.2 LA vol/ BSA A2C s A-L 13.1 mL/m2 LVDs 3.30 cm F: 2.2 - 3.5 LA vol/ BSA A4C s A-L 25.2 mL/m2 Ao Root d 2.68 cm F: 2.7 - 3.3 LA Vol/ BSA Biplane s A-L 20.8 mL/m2 RA Area A4C 12.64 cm2 LA Area A4C s MOD 19.53 cm2 RA Vol/ BSA A4C s A-L 16.3 mL/m2 LA Area A2C s MOD 12.28 cm2 Ao Asc Diam d 3.20 cm F: 2.3 - 3.1 LV EF A4C MOD 47.7 % LV EF Teichholz 52.5 % LV EF A2C MOD 49.2 % LVEF (Sultana's) 46.17 % F: 54 - 74 LV EF Biplane MOD 46.2 % LV Volume 65.08 mL F: 46 - 106 SV 40.60 mL LV Volume Index 31.28 mL/m2 F: 29 - 61 SV Index 19.49 mL/m2 LV Vol Biplane MOD 87.9 mL FS 26.85 % M-Mode TAPSE 2.19 cm (M/F) >1.7 LV Diastology MV E' medial 0.053 (>0.07 m/s) E/A Ratio 0.6 LV E/e MED 11.50 (<14) MV E Vmax 0.61 (0.4-1.3 m/s) MV E' lateral 0.059 (>0.1 m/s) MV A Vmax 1.05 (0.4-1.3 m/s) LV E/e LAT 10.40 (<14) MV E/A Ratio 0.57 MV E/E' medial 11.54 MV E/E' lateral 10.42 Aortic Valve LVOT Area 2.55 cm2 AoV Area Vmax 1.80 cm2 LVOT Vmax 1.01 m/s AoV Area/ BSA (Vmax) 0.86 cm2/m2 LVOT Mean Davin. 0.64 m/s CHAYO Mean Davin. 1.57 cm2 LVOT Peak Grad 4.1 mmHg CHAYO Mean Davin. Index 0.75 cm2/m2 LVOT Mean Grad 1.9 mmHg LVOT VTI 0.217 m LVOT Diam s 1.80 cm AoV Vmax 1.43 m/s Velocity Ratio 0.70 AoV Mean Davin. 1.04 m/s AoV Peak Grad 8.2 mmHg LVOT SV 55.31 mL AoV Mean Grad 4.7 mmHg AoV VTI 0.309 m AoV Area VTI 1.79 cm2 AoV Area/ BSA (VTI) 0.86 cm/m2 Mitral Valve MV DT 321 (160-240 msec) MV PHT 93 msec MV Area PHT 2.36 cm2 Pulmonary Valve PV Vmax 0.90 (0.5-1.5 m/s) RVOT Peak Gr. 1.63 mmHg PV Peak Grad 3.2 mmHg RVOT Mean Gr. 0.90 mmHg PV Mean Grad 1.8 mmHg RVOT VTI 0.150 m PV VTI 0.220 m RVOT Vmax 0.64 m/s Tricuspid Valve TR Peak Grad 15.6 mmHg TR Vmax 1.98 m/s RA Pressure 3.00 mmHg RVSP (TR) 18.7 mmHg
--- NOTE | 2020-07-24 15:48 | INITIAL_ITS ---
- If Service Date Differs Date of service: 07/24/20 Time of Service: 15:48 Care Management Initial Assess REASON FOR HOSPITALIZATION:: TIA PAST MEDICAL HISTORY/PAST SURGICAL HISTORY:: Arthritis of knee, right (Acute). History of depression (Chronic). CVA (cerebral vascular accident) (Chronic). Diabetes mellitus (Chronic). GI bleed (Chronic). Gout (Chronic). Hiatal hernia (Chronic). Hypertension (Chronic). TIM (obstructive sleep apnea) (Chronic). Osteoarthritis (Chronic). History of appendectomy (Chronic). History of arthroscopic knee surgery (Chronic). History of colonoscopy (Chronic). History of hysterectomy (Chronic) PREVIOUS FUNCTIONAL STATUS/SOCIAL/FAMILY SUPPORTS:: Ally resides with her SO Ramos in [facility] in a [facility]. Ramos assists with driving as Ally does not drive. Ally reports that Ramos has three children locally whom are supportive. Ally is from [place] and states that she has a brother and sister there whom are supportive. CURRENT FUNCTIONAL STATUS:: Ally is engaged during assessment she is alert and sitting up in the chair. She states that she walks with a FWW at home. She states she is doing well at home and does not anticipate needing any additional services. ADVANCE DIRECTIVES:: On file Ramos her SO is her agent Has patient been provided with info about the portal/API?: Yes Did the patient sign up for the portal?: No (Enrolled ) CODE STATUS:: Full Code INSURANCE COVERAGE / FINANCIAL ISSUES:: Medicare, [employer] CURRENT HOME/COMMUNITY SERVICES/EQUIPMENT:: FWW PRIMARY CARE PHYSICIAN:: Arron Caceres, [facility] POTENTIAL DISCHARGE NEEDS:: Follow up with primary care scheduled prior to discharge PATIENT/FAMILY EDUCATION NEEDS:: Discharge education, limitations and follow up plan of care including ask me three and self management. ANTICIPATED BARRIERS TO DISCHARGE:: None TRANSPORTATION:: Via private car with her SO PLAN:: Ally will be discharged home when medically ready, she remains in observation status which CM reviewed with provider and plan will be for her to discharged home after seeing the neurologist in the morning pending her test results and resolve of symptoms. Ally remains on telemetry.
--- NOTE | 2020-07-24 16:28 | NCONE_ITS ---
Date of service: 07/24/20 Time of Service: 16:29 Assessment and Plan Assessment and plan (1) TIA (transient ischemic attack): Status: Acute (2) Aphasia: Status: Acute Assessment and plan: Ms. Vega is a 75 year-old, right-handed woman who was admitted after 3 episodes of transient expressive aphasia. Her symptoms are most consistent with TIA which I discussed with her. She will continue further work-up with TTE and extended 30 day cardiac monitoring. Etiology of her stroke remains unknown at this time. She is unable to tolerate aspirin. I agree with clopidogrel 75mg daily for secondary stroke prevention. ADRs were discussed with patient including risk of recurrent hemorrhage. Of note, she has a history of recurrent hypertensive hermorrhagic strokes. Excellent BP control 120-140 systolic will be important in the long-term to prevent recurrent strokes. Given GI symptoms and history of GI bleed, I would consider the addition of H2 bar vs PPI. Continue rosuvastatin 10mg daily for stroke prevention. LDL at goal. A1c goal <7.0. She should continue with outpatient PT s/p right leg fractures. She should follow-up in the neurology clinic in 4-6 weeks. Please call with any further questions or concerns. History of Present Illness History of Present Illness Chief Complaint: TIA Narrative: Handedness: right. HPI: Ms. Vega is a 75 year-old woman with a history of hypertension, hyperlipidemia, diabetes, obstructive sleep apnea not on a CPAP, gout, depression, osteoarthritis, remote GI bleeds, and chronic pain. Yesterday after breakfast, she had a sudden feeling that she can only describe as weird and off. Associated with this she had extreme difficulty getting out her words. She could understand what her partner was saying but could not say the words that she wanted to speak. This inability to speak lasted approximately 15 minutes. Over the next 1 hour, she had 2 further episodes of similar symptoms though shorter in duration lasting approximately 5 to 10 minutes each. She had no associated weakness or numbness. Of note, she has a history of prior strokes occurring in 2012, 2013, and 2014. The first 2 were treated in [place] and the third in [place]. It seems that they were all hemorrhagic strokes though the first 2 were mild with no residual symptoms. The third stroke was more severe for which she has residual right mild hemiparesis, right hemianesthesia, and dysarthria. Her residual weakness is complicated by a fall in March 2018 in which she suffered a periprosthetic right distal femur fracture and right bimalleolar ankle fracture. She underwent surgical repair for both and has continued in outpatient PT. She is unable to tolerate aspirin or ibuprofen due to recurrent GI bleeds. She underwent remote EGD which showed inflammation. Currently, she notes left sided epigastric pain after eating. She has a history of only rare headaches in the past. She is on rosuvastatin 10mg daily as an outpatient. She was started on Plavix for presumed TIA. She has undergone the below work-up: -CTH: no acute findings. I reviewed these images personally. -CTA head/neck: no significant stenosis. I reviewed these images personally. -MRI Brain w/o: no acute findings. Previous small hemorrhages in bilateral basal gangila, L thalamus, and right cerebellum. Moderate-severe chronic white matter disease changes. L sinus opacity. I reviewed these images personally. -TTE: pending. -LDL : 90 -A1c 8.1 -Tele: no afib. Consults Consult date: 07/24/20 Requesting physician: Dorie Colin Review of Systems All systems reviewed & are unremarkable except as noted in HPI and below PFSH Medical History Arthritis of knee, right GI bleed Gout Hiatal hernia History of depression meds in past presently on no rx for depression History of hemorrhagic stroke with residual hemiparesis Hyperlipidemia Hypertension TIM (obstructive sleep apnea) has used cpap in past presently not using Osteoarthritis Surgical History Bimalleolar fracture of right ankle (03/16/20) March 2020 s/p ORIF History of appendectomy History of arthroscopic knee surgery History of colonoscopy History of hysterectomy Periprosthetic fracture around internal prosthetic right knee joint, initial encounter (03/16/20) March 2020 s/p ORIF Status post total knee replacement, right (02/05/19) Dr. Monge Family History Father Heart disease Social History Smoking/Tobacco Use Status: Never Alcohol Intake: never Drug use: Never Household members: significant other current occupation: retired. Current gender identity: female Do you feel safe at home: Yes Do you feel safe in your relationship?: Yes Additional Social history: Female Reproductive History Menstrual Menopause type: surgical Visit Medication and Allergies Active Medications Generic Name Dose Route Start Last Admin Trade Name Freq PRN Reason Stop Dose Admin Acetaminophen 650 mg 07/23/20 18:53 07/24/20 09:33 Acetaminophen 325 Mg Tab PO 650 mg Q4H PRN PRN Administration Albuterol Sulfate 0 puff 07/23/20 18:53 Albuterol Hfa 6.7 Gm 200 Puff Inh IH Q6H PRN PRN Amlodipine Besylate 10 mg 07/24/20 08:30 07/24/20 09:05 Amlodipine 10 Mg Tab PO 10 mg DAILY GUILLE Administration Clopidogrel Bisulfate 75 mg 07/25/20 08:30 Clopidogrel 75 Mg Tab PO DAILY GUILLE Dextrose 0 gm 07/24/20 09:55 Glucose 40% Oral Solution 15 Gm/37.5 Gm Tube PO DIRECTED PRN Dextrose/Water 0 gm 07/24/20 09:55 Dextrose 50%-Water 25 Gm/50 Ml Syr IVP DIRECTED PRN Dimethicone/Zinc Oxide 0 gm 07/23/20 18:50 Quang Protect Cream 142 Gm Tube TP PRN PRN Gabapentin 300 mg 07/24/20 14:00 07/24/20 14:16 Gabapentin 300 Mg Cap PO 300 mg TID GUILLE Administration Glipizide 10 mg 07/24/20 08:30 07/24/20 09:05 Glipizide Cr 10 Mg Tabcr PO 10 mg DAILY GUILLE Administration IV Miscellaneous Supplies 1 each 07/23/20 16:30 Iv Access IV DIRECTED [facility] Insulin Aspart 0 units 07/24/20 12:00 07/24/20 12:25 Insulin Aspart 300 Units/3 Ml Pen SC 2 units 0800,1200,1700 GUILLE Administration Protocol Iohexol 100 ml 07/23/20 17:15 07/23/20 17:09 Omnipaque 350 Mg/Ml 100 Ml Btl IJ 08/22/20 23:59 85 ml DIRECTED GUILLE Administration Labetalol HCl 200 mg 07/24/20 08:30 07/24/20 09:04 Labetalol 100 Mg Tab PO 200 mg QAM GUILLE Administration Labetalol HCl 100 mg 07/23/20 22:00 07/23/20 21:02 Labetalol 100 Mg Tab PO 100 mg HS GUILLE Administration Lisinopril 20 mg 07/23/20 20:00 07/24/20 09:06 Lisinopril 20 Mg Tab PO 20 mg BID GUILLE Administration Melatonin 3 - 6 mg 07/23/20 18:55 07/23/20 23:53 Melatonin 3 Mg Tab PO 6 mg HS PRN PRN Administration Rosuvastatin Calcium 10 mg 07/24/20 08:30 07/24/20 09:06 Rosuvastatin 10 Mg Tab PO 10 mg DAILY GUILLE Administration Sodium Chloride 0 ml 07/23/20 16:22 07/24/20 09:06 Normal Saline Flush 10 Ml Syr IVP 10 ml PRN PRN Administration Sodium Chloride 50 ml 07/23/20 17:15 07/23/20 17:11 Normal Saline - Diluent 50 Ml Vial IV 50 ml .FOR DI USE GUILLE Administration Allergies aspirin Allergy (Severe, Verified 07/23/20 16:18) GI Bleed ibuprofen [From Motrin] Allergy (Severe, Verified 07/23/20 16:18) GI Bleed Tetracyclines Allergy (Severe, Verified 07/23/20 16:18) Makes my skin peel and throat close up buspirone Allergy (Unknown, Verified 07/23/20 16:18) codeine Allergy (Unknown, Verified 07/23/20 16:18) pentazocine [From Talwin] Allergy (Unknown, Verified 07/23/20 16:18) sulfamethoxazole [From Bactrim] Allergy (Unknown, Verified 07/23/20 16:18) trimethoprim [From Bactrim] Allergy (Unknown, Verified 07/23/20 16:18) ciprofloxacin [From Cipro] Adverse Reaction (Severe, Verified 07/23/20 16:18) made my stomach bleed duloxetine [From Cymbalta] Adverse Reaction (Severe, Verified 07/23/20 16:18) made me sick and suicidal prednisone Adverse Reaction (Severe, Verified 07/23/20 16:18) Raises BP and blood sugar per Pt tramadol Adverse Reaction (Severe, Verified 07/23/20 16:18) major GI upset oxycodone [From Percocet] Adverse Reaction (Unknown, Verified 07/23/20 16:18) propoxyphene [From Darvocet-N] Adverse Reaction (Unknown, Verified 07/23/20 16:18) Exam Narrative Exam Narrative: Physical Exam: Gen: Patient of apparent stated age, NAD Head and face: no facial or cranial abnormalities Neck: Supple, no meningismus, no occipital tenderness CV: + S1, S2, RRR, no murmur Resp: CTA B/L Abd: soft, nontender, nondistended Ext: No edema. No clubbing or cyanosis. No bony deformity. Neuro Exam: Language: fluency, naming, repetition, and comprehension intact; Mental Status: AAOx3, current events intact, fund of knowledge intact; Speech: no dysarthria Cranial nerves: Funduscopy: not performed CN II: visual gordon intact CN III, IV, : extraocular movements intact, no nystagmus, pupils symmetric and reactive to light CN V: face sensation reduced to LT and PP R V1-3 CN VII: no facial asymmetry noted CN VIII: hearing intact bilaterally CN IX, X: palate rises symmetrically CN XI: trapezius/SCM 5/5 bilaterally CN XII: protrudes tongue symmetrically Sensory: reduced LT and PP throughout right hemibody; vibration reduced in the toes bilaterally; joint position intact throughout; Motor: bulk and tone intact. Fine motor movements reduced on the right. R pronator drift. Strength 5/5 throughout the left arm and leg. RUE 4+/5 throughout. Right hip flexor 3+/5. Distal right foot 4+/5. Reflexes: 2+ at the biceps, triceps, and brachioradialis; absent at the patella and achilles tendons bilaterally; toes neutral bilaterally; Coordination: no ataxia Gait: deferred Results Last Vital Signs Temp 36.9 C 07/24/20 12:10 Pulse 66 07/24/20 12:10 Resp 18 07/24/20 12:10 BP 151/73 H 07/24/20 12:10 Pulse Ox 98 07/24/20 12:10 Labs Result diagrams: 07/23/20 16:20 07/23/20 16:20 Labs: Laboratory Results - last 24 hr 07/23/20 07/23/20 07/23/20 16:20 16:20 16:20 WBC 9.17 RBC 5.69 H Hgb 15.7 Hct 50.0 H MCV 87.9 MCH 27.6 MCHC 31.4 L RDW 15.0 H Plt Count 276 MPV 9.9 Immature Gran % 0.4 Neutrophils % 68.8 Lymphocytes % 22.1 Monocytes % 6.3 Eosinophils % 1.5 Basophils % 0.9 Nucleated RBC % 0 Absolute Neutrophils 6.30 Absolute Lymphocytes 2.03 Absolute Monocytes 0.58 Absolute Eosinophils 0.14 Absolute Basophils 0.08 Sodium 139 Potassium 4.3 Chloride 103 Carbon Dioxide 25.3 Anion Gap 10.7 BUN 12 Creatinine 0.55 Estimated GFR/1.73 m2 >= 60.00 Glucose 133 H Hemoglobin A1c 8.1 H Calcium 9.6 Total Bilirubin 0.7 AST 35 ALT 28 Alkaline Phosphatase 112 Troponin I < 0.05 Total Protein 8.2 Albumin 4.2 Triglycerides 97 Total Cholesterol 168 LDL Cholesterol, Calc 90 HDL Cholesterol 59 07/23/20 07/23/20 16:47 19:47 WBC RBC Hgb Hct MCV MCH MCHC RDW Plt Count MPV Immature Gran % Neutrophils % Lymphocytes % Monocytes % Eosinophils % Basophils % Nucleated RBC % Absolute Neutrophils Absolute Lymphocytes Absolute Monocytes Absolute Eosinophils Absolute Basophils Sodium Cancelled Potassium Cancelled Chloride Cancelled Carbon Dioxide Cancelled Anion Gap Cancelled BUN Cancelled Creatinine Cancelled Estimated GFR/1.73 m2 Cancelled Glucose Cancelled Hemoglobin A1c Calcium Cancelled Total Bilirubin Cancelled AST Cancelled ALT Cancelled Alkaline Phosphatase Cancelled Troponin I Cancelled Cancelled Total Protein Cancelled Albumin Cancelled Triglycerides Total Cholesterol LDL Cholesterol, Calc HDL Cholesterol
--- NOTE | 2020-07-24 17:37 | PHA.REVIEW ---
Pharmacy Admission Review - Admission Clinical Review (Last Reviewed 07/23/20 @ 18:45 by Abraham Gibbs MD) Aphasia (Acute) Neuropathy (Acute) aspirin Allergy (Severe, Verified 07/23/20 16:18) GI Bleed ibuprofen [From Motrin] Allergy (Severe, Verified 07/23/20 16:18) GI Bleed Tetracyclines Allergy (Severe, Verified 07/23/20 16:18) Makes my skin peel and throat close up buspirone Allergy (Unknown, Verified 07/23/20 16:18) codeine Allergy (Unknown, Verified 07/23/20 16:18) pentazocine [From Talwin] Allergy (Unknown, Verified 07/23/20 16:18) sulfamethoxazole [From Bactrim] Allergy (Unknown, Verified 07/23/20 16:18) trimethoprim [From Bactrim] Allergy (Unknown, Verified 07/23/20 16:18) ciprofloxacin [From Cipro] Adverse Reaction (Severe, Verified 07/23/20 16:18) made my stomach bleed duloxetine [From Cymbalta] Adverse Reaction (Severe, Verified 07/23/20 16:18) made me sick and suicidal prednisone Adverse Reaction (Severe, Verified 07/23/20 16:18) Raises BP and blood sugar per Pt tramadol Adverse Reaction (Severe, Verified 07/23/20 16:18) major GI upset oxycodone [From Percocet] Adverse Reaction (Unknown, Verified 07/23/20 16:18) propoxyphene [From Darvocet-N] Adverse Reaction (Unknown, Verified 07/23/20 16:18) Height 5 ft 9 in Weight 92.7 kg - Renal Dosing Renal Dosing: BUN Cancelled 07/23/20 16:47 Creatinine Cancelled 07/23/20 16:47 Medications needing adjustments: Reviewed - Anticoagulation Anticoagulation: Hgb 15.7 g/dL (11.2-15.7) 07/23/20 16:20 Hct 50.0 % (36.0-46.0) H 07/23/20 16:20 Plt Count 276 10^3/uL (130-400) 07/23/20 16:20 Creatinine Cancelled 07/23/20 16:47 DVT Prohphylaxis: N/A Therapeutic Anticoagulation: N/A - Opiate Usage Evaluate Pain Scale/Pains Meds: N/A - Relevant Labs Sodium Cancelled 07/23/20 16:47 Potassium Cancelled 07/23/20 16:47 Chloride Cancelled 07/23/20 16:47 Electrolytes, C-Reactive P, ESR: N/A - DM Control DM Control: Glucose Cancelled 07/23/20 16:47 Hemoglobin A1c 8.1 % (<5.7) H 07/23/20 16:20 Finger Stick Blood Glucose 90 Finger Stick Blood Glucose 90 Finger Stick Blood Glucose 183 Finger Stick Blood Glucose 183 Insulin Dosing: Reviewed (insulin per SS - not on at home, only 2 ODAs) - Heart Failure/CO Heart Failure/CO: Troponin I Cancelled 07/23/20 19:47 EF%, ANNETTE's, B-Blockers, Diuretics: Reviewed - BP Control BP Control: Blood Pressure 151/73 Blood Pressure 176/82 If elevated: Reviewed - Qtc Review If Elevated: Reviewed (QTc 467 on admisison) - IV to PO Switch IV Medications: N/A - Home Meds Home Med List reviewed: Intervened Relevent Home Meds Not ordered & why?: farxiga (wasn't on home med list, just added after reviewin external med record), ascorbic acid, vit b12, vit d, co q10, estradiol, oxycodone (prn) - Current meds Current Medication Order Review: Reviewed
[2020-07-24 19:29] VITALS: BP 144/76; PULSE 66; RESP 16; TEMP 36; O2SAT 98
[2020-07-24 21:02] LABS: COVID-19 RT-PCR UVMMC Result Negative (Negative)
[2020-07-24] MEDS: Labetalol 100 MG TAB PO (21:28)
[2020-07-24 23:10] VITALS: BP 110/69; PULSE 66; RESP 18; TEMP 36.2; O2SAT 96
[2020-07-25 03:10] VITALS: BP 144/73; PULSE 67; RESP 17; TEMP 36.5; O2SAT 99
[2020-07-25 07:58] VITALS: BP 143/89; PULSE 62; RESP 18; TEMP 36.2; O2SAT 99
[2020-07-25] MEDS: Gabapentin 300 MG CAP PO (07:59)
[2020-07-25] MEDS: Clopidogrel 75 MG TAB PO (07:59)
[2020-07-25] MEDS: Rosuvastatin 10 MG TAB PO (07:59)
[2020-07-25] MEDS: Lisinopril 20 MG TAB PO (07:59)
[2020-07-25] MEDS: Labetalol 100 MG TAB 200 MG PO (08:00)
[2020-07-25] MEDS: amLODIPine 10 MG TAB PO (08:00)
[2020-07-25] MEDS: Insulin Aspart 300 UNITS/3 ML PEN SC ×2 (08:08→12:08)
--- NOTE | 2020-07-25 08:50 | OTIE_ITS ---
Occupational Therapy Notes Inpatient Occupational Therapy Evaluation Date: 07/24/20 Referring Doctor: Dorie Colin NP OT Orders: Non-Urgent Precautions: Fall, Standard, Full PATIENT PROFILE/ADMITTING DIAGNOSIS: Pt is a 75 year old female that reports that she was at her home yesterday morning when she felt a weird feeling throughout her body. She states that she went back to bed and it appeared that this went away. When her significant other returned home it kept happening so she presented to the ED. She was admitted for the following dx, TIA, aphasia, neuropathy, CVA, HTN. Past Medical History- Medical History (Updated 07/23/20 @ 18:47 by Abraham Gibbs MD) Arthritis of knee, right CVA (cerebral vascular accident) GI bleed Gout Hiatal hernia History of depression meds in past presently on no rx for depression Hypertension TIM (obstructive sleep apnea) has used cpap in past presently not using Osteoarthritis Surgical History History of appendectomy History of arthroscopic knee surgery History of colonoscopy History of hysterectomy Social History/Home Situation: Pt lives in a mobile home with her significant other, she states that she was having prior difficulty with her (R) LE which she states has been limiting her functional mobility. She reports that she was otherwise (I) in her ADLs. She has a tub shower and a walk in shower. She does not have any services or (A) for her ADLs. She does not drive at baseline and her significant other (A) her with this. Equipment owned/DME: FWW, grab bars, shower seat SUBJECTIVE: Pt was lying in her bed when OT arrived. She is agreeable to OT session and reports that she is currently attending outpatient PT for her (R) LE after recovering from a TKR as well as multiple fx. She has been moving about in her room (I) and does not feel that this has changed in terms of her CVa. OBJECTIVE: General Observation: Pleasant and able to answer questions appropriately, speech is slow unsure if this is pts baseline, telemetry, (L) UE IV placement not connected. Mental Status: A&Ox3 Pain: no c/o pain ROM: RUE AROM WFL L UE AROM WFL STRENGTH: RUE 3-/5 throughout LUE 4/5 throughout SENSATION: intact (B) UE FUNCTIONAL MOBILITY/ADLS: Transfers with FWW Supine-sit (I) Sit-Stand (I) Stand-sit (I) Bed-Chair (S) BATHING NT as pt was eating her breakfast but she was able to perform AROM (I) to perform this without (A). DRESSING sitting in chair Dressing UE AROM WFL for performance of don and doffing shirt Dressing LE (I) with don and doffing (B) socks with (B) LE GROOMING Sitting in chair (I) with brushing hair. TOILETING on toilet (I) EATING sitting in chair she was (I) with eating routine and was able to bring hand to mouth, cut her food and swallow without difficulty. [place] sitting position achieved when eating. BALANCE: Static sitting Normal Dynamic Sitting Normal Static Standing Good Dynamic Standing Good SPECIAL TESTS: Daily Activity Limitations Standardized Measure [facility] AM -PAC ?6 clicks? Daily Activity Inpatient Short Form: Raw score: 23 Standardized score: 51.12 CMS score: 15.86% INFORMED CONSENT/EDUCATION: Pt instructed in purpose of OT Consult and plan of care. ASSESSMENT: Patient is a 75-year-old female referred to occupational therapy services with diagnosis of TIA, Aphasia, Neuropathy, CVA, HTN. Patient presents with clinical signs and symptoms consistent with dx. Pt was seen for OT consult and demonstrated what she feels is her baseline level of function. She does not some strength deficits in her (R) UE which she states is not limiting to her in terms of her ADL/IADL routines. She is currently attending Outpatient Physical Therapy at [facility] with Ayana Malave, ELENA and OT recommends that pt continue with this care. Pt states that she was being seen for balance deficits from (R) LE multiple fx's. Pt does not feel that she will need OT services and would like to decline further services at this time based on her ability to perform her ADLs as (I) as she does at this time. OT will discharge pt from OT services based on todays assessment. AMPA score 23 Patient is assessed as a Low 35048 complexity based on the following: History: see above Examination: see functional limitations as noted above Presentation: evolving Decision Making: AMPA score 23 GOALS N/A seen for OT consult only. PLAN OF CARE/TREATMENT PLAN: Discharge from skilled OT services. DISCHARGE RECOMMENDATIONS Return home and to outpatient PT. TREATMENT TIME/MINUTES/CODES 25305, [id number], 20 minutes (08:05) Jessica Mei OTR/[facility]
--- NOTE | 2020-07-25 09:02 | PT.INIE ---
Date of service: 07/25/20 Time of Service: 09:02 PT Notes Visit Reasons: TIA (cardiology) Physical Therapy Inpatient Initial Evaluation Date: 07/25/2020 Referring Doctor: Dorie Colin NP PT Orders: PT CONSULT: Precautions: Fall. Standard. Activity as tolerated. Patient Profile/Admitting Diagnosis: Ally is a 75-year-old female who presented to the ED on 07/23/2020 with chief presentation of left-sided discomfort, difficulty with speech, and high blood pressure. Patient is diagnosed with aphasia resulting from a transient ischemic attack. PMHX: Medical History (Updated 07/23/20 @ 18:47 by Abraham Gibbs MD) Arthritis of knee, right CVA (cerebral vascular accident) GI bleed Gout Hiatal hernia History of depression meds in past presently on no rx for depression Hypertension TIM (obstructive sleep apnea) has used cpap in past presently not using Osteoarthritis Surgical History History of appendectomy History of arthroscopic knee surgery History of colonoscopy History of hysterectomy Social History/Home Situation: Patient lives with significant other in a mobile home with 2 steps to enter leading to a porch rails on both sides. She was independent with indoor and outdoor ambulation using ambulatory device until 2 months ago when her right knee started to significantly limit her due to pain. Patient started to use a small-based quad cane for fear of falling due to her worsening pain symptoms. Equipment Owned/DME: [employer], FWW Subjective: Agreeable to PT consult. Reports 5/10 pain in abdominal area at time of evalaution. BARON Oshea aware that it has been going on for the past 5 weeks. Objective: General Observation: Seated on bedside chair. IV in left UE. Bilateral TEDs on. Telemetry monitoring in place. Alert and oriented x4 Mental Status: Alert and oriented x4 Pain: Abdominal pain at 5/10 ROM: Right Upper Extremity: Shoulder Flexion WFL. Shoulder abduction WFL. Elbow flexion WFL. Wrist flexion WFL. Opening and closing of hand WFL. Left Upper Extremity: Shoulder Flexion WFL. Shoulder abduction WFL. Elbow flexion WFL. Wrist flexion WFL. Opening and closing of hand WFL. Right Lower Extremity: Hip flexion lacks terminal 30 degrees while seated on chair. Hip abduction WFL. Knee flexion WFL. Ankle dorsiflexion lacks terminal 20 degrees. Ankle plantarflexion WFL. Left Lower Extremity: Hip flexion WFL. Hip abduction WFL. Knee flexion WFL. Ankle dorsiflexion WFL. Ankle plantarflexion WFL. Strength: Right Upper Extremity: Shoulder flexors 4/5. Shoulder abductors 4/5. Elbow flexors 4/5. Elbow extensors 4/5. Nurse Charge Rn strong. Left Upper Extremity: Shoulder flexors 4/5. Shoulder abductors 4/5. Elbow flexors 4/5. Elbow extensors 4/5. Nurse Charge Rn strong. Right Lower Extremity: Hip flexors 3-/5. Hip abductors 4/5. Knee flexors 4/5. Knee extensors 4-/5. Ankle dorsiflexors 3-/5. Ankle plantarflexors 4-/5. Left Lower Extremity:Hip flexors 4/5. Hip abductors 4/5. Knee flexors 4/5. Knee extensors 4/5. Ankle dorsiflexors 4/5. Ankle plantarflexors 4/5. Bed Mobility/Transfers: Rolling independent Supine to sit independent Sit to supine independent Sit to stand independent using front wheel walker Stand to sit independent using front wheel walker Bed to chair independent using front wheel walker Chair to bed independent using front wheel walker Gait: 250 feet with front wheeled walker with standby assist. No report of dizziness, chest pain, and headache throughout activity. Angelica decreased. Step height on the right decreased no increase in abdominal pain. Balance: Static Sitting: Normal Dynamic Sitting: Normal Static Standing: Fair Dynamic Standing: Fair Special Tests: Mobility Limitations Standardized Measure [facility] 6 clicks Basic Mobility Inpatient Short Form: Raw Score: 24 CMS Score: 0% deficit Informed Consent/Education: Patient instructed in purpose of PT consult. Assessment: Ally requires the use of a front-wheeled walker for all ambulation task performance to reduce fall risk at home. Patient presents with clinical signs and symptoms consistent with current/admitting diagnoses that have resulted to mobility limitations, gait instability, generalized weakness, and impairment of motor control as demonstrated by the following impairment level findings: 1. Decreased strength to R LE major muscle groups 2. Impaired standing balance 3. Impaired activity tolerance 4. Limitation of joint range of motion in R hip and R ankle Impairments are contributing to the following functional limitations: 1. Inability to safely ambulate without assistive device 2. Increase completion time for mobility ADL performance 3. Increased fall risk 4. Inability to negotiate steps alone safely Patient is assessed as a 64416 moderate complexity based on the following: History: 75-year-old female with impairment level findings, functional limitations, and past medical history as indicated above Examination: Demonstrable impairment in strength, balance, and mobility level with underlying impairments and functional limitations as documented above Presentation:Evolving Decision Makin moderate complexity Goals: N/A. PT evaluation only. Plan of Care/Treatment Plan: N/A. PT evaluation only. DISCHARGE RECOMMENDATIONS: Resume OP PT services to regain highest functional level and increase ability to stay at home with significant other. TREATMENT CODE/TIME: 85510 x 26 minutes beginning at 9:02 AM. Thank you for the opportunity to participate in the care of this patient. Bhakti Ferreira PT, DPT, CLT [facility] [place], [place]
--- NOTE | 2020-07-25 10:48 | DSE_ITS ---
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 No acute infarct, MRI negative 30 day event recorder to r/o PAF Echo with 50% ef no PFO Plavix with pepcid (has a history of GI bleed, sensitive to asa) continue statin tighter blood pressure control 140 and under Control bgl. Maintain low carb, low sodium, heart healthy diet. (2) Aphasia: Start date: 07/25/20 Start time: 10:51 Status: Resolved Asessment and Plan: Due to above (3) Hypertension: Start date: 07/25/20 Start time: 10:51 Status: Chronic Asessment and Plan: Continue current regimen. Follow up with PCP on Tuesday as scheduled, maintain sbp under 140 (4) Neuropathy: Start date: 07/25/20 Start time: 10:52 Status: Acute Asessment and Plan: Continue gabapentin. above case discussed with Dr. holguin who is in agreement. Discharge Plan Disposition Patient Disposition: HOME Condition: Good Discharge Details Reason For Visit: TIA Admit Date/Time: 07/23/20 18:50 Admit Provider: Abraham Gibbs Attending Provider: Abraham Gibbs Primary Care Provider: Ximena Graham Hospital Course Hospital Course: 75 y.o female with PMH of micro hemorrhages due to HTN, CVA with residual right sided weakness, GERD, HLD, Sleep apnea, admitted to [facility] m/s after presenting to ED with left-sided head discomfort, difficulty with speech and HTN. In ED symptoms resolved. She was asked to be admitted to r/o new infarct. CTA was negative, MRI negative for acute infarct. Unknown etiology of previous CVA or TIA symptoms, echo r/o PFO, EF 50%. Patient does endorse palpitations sometimes therefore she will be dishcarged home with 30 day event recorder. Aspirin gives her GI bleeds so she was placed on plavix with H2 bar. Neurology evaluated patient, and agrees with plan. She will need to follow up with neurology in 4-6 weeks. Her A1c has increased since last check to 8.1. She will need to start insulin as an outpatient. Follow up appt Tuesday with PCP, will defer to her for further management of diabetes. Continue outpatient therapy. Continue statin. Blood pressure checks twice a day with target at SBP 140 or less. She did complain about pain to left abdomen after eating sometimes, this is not new, will have her discuss with her PCP this as well further work up. She denies CP, SOB, N/V/D. She is being discharged home. She does not require any services at this time. Echo: Conclusion Left Ventricle : The left ventricle is normal size. The left ventricular systolic function is normal. The left ventricular ejection fraction is within the normal range. There is normal left ventricular wall thickness. There is normal LV segmental wall motion. The left ventricular diastolic function is normal. LVEF is 50%. Right Ventricle : Right ventricle is borderline dilated. The right ventricular systolic function is normal. The RVSP is 18.7 mmHg. Atria : The left atrium size is normal. The right atrium size is normal. The interatrial septum is intact with no evidence for an atrial septal defect. Saline bubble contrast intravenous injection does not demonstrate PFO. Valves: There are no hemodynamically significant valvular lesions. Great Vessels : The aortic root is normal in size. The ascending aorta is mildly dilated. Aortic arch is normal in caliber. IVC is normal in size and collapses >50% with inspiration. Please see remainder of study for further details. Home Meds and New Rx's Prescriptions: New clopidogrel [Plavix] 75 mg Tablet 75 mg PO DAILY Qty: 30 RF: 0 famotidine 40 mg tablet 40 mg PO DAILY Qty: 30 RF: 0 Continued clotrimazole-betamethasone 1-0.05 % cream 1 applic topical BID 28 Days Qty: 45 RF: 1 multivitamin tablet 1 tab PO DAILY RF: 0 labetalol 200 mg tablet 100 mg PO HS RF: 0 lisinopril 20 mg tablet 20 mg PO BID RF: 0 cyanocobalamin (vitamin B-12) [Vitamin B-12] 500 mcg tablet 500 mcg PO DAILY RF: 0 albuterol sulfate [Ventolin HFA] 90 mcg/actuation Hfa Aerosol Inhaler 2 puff INHALATION Q6H PRNRF: 0 ascorbic acid (vitamin C) [Vitamin C] 500 mg Tablet 500 mg PO BID Qty: 0 RF: 0 labetalol 200 mg tablet 200 mg PO QAM RF: 0 glipizide 10 mg tablet extended release 24hr 10 mg PO DAILY RF: 0 acetaminophen [Acetaminophen Extra Strength] 500 mg Tablet 500 mg PO Q6H PRNRF: 0 amlodipine 10 mg tablet 10 mg PO DAILY RF: 0 estradiol 0.01 % (0.1 mg/gram) cream 1 applic VAGINAL DAILY RF: 0 rosuvastatin 10 mg tablet 10 mg PO DAILY RF: 0 Co Q-10 300 mg Capsule 300 mg PO DAILY RF: 0 cholecalciferol (vitamin D3) [Vitamin D3] 50 mcg (2,000 unit) Capsule 50 mcg PO DAILY RF: 0 oxycodone 5 mg capsule 5 mg PO TID PRN MDD 20mg PRN (Reason: pain, severe) RF: 0 gabapentin 300 mg capsule 300 mg PO TID RF: 0 Farxiga 10 mg tablet 10 mg PO DAILY RF: 0 No Action (DME) Tall walker See Rx Instructions .Route .MEDSUPPLY Qty: 1 RF: 0 Discharge Instructions Instructions: Transient Ischemic Attack (DC), Hemoglobin A1c (GEN), Type 2 Mayelin betes in the Older Adult (ED) Additional Instructions: Take your blood pressure twice a day with a target goal for less than 140 systolic Follow up with your PCP as scheduled for Tuesday Take plavix daily with famotidine Take blood sugar levels 3 times a day Wear radiographer cardiac catheterization for 30 days Follow up with Dr. Mercado in 4-6 weeks. Stand Alone Forms: Nursing Discharge Form Referrals: Ximena Graham [Primary Care Provider] - 07/28/20 10:15 am Activity:: Activity as Tolerated Equipment/Supplies:: No Equipment Needed Diet:: Carb Counting Discharge Orders Discharge Orders: Discharge Order (Routine); Ordered 07/25/20 Ordered By: Dorie Colin DS: Summary Status at Discharge Functional status at discharge: uses cane/walker Overall status at discharge: patient is back to baseline Mental Status: mental status grossly normal Speech and Movement: speech and movement normal Mood: congruent mood Affect: normal affect Exam Narrative Exam Narrative: RA. HEENT atraumatic; neck supple w/o bruits; lungs clear; heart RRR w/o MRG; abdomen soft and NT extremities w/o edema, pulses 2+/=; neuro Ox3, language fluent; CN intact; motor 4/5 right hemiparesis Psych Mental Status: mental status grossly normal Speech and Movement: speech and movement normal Mood: congruent mood Affect: normal affect DS: Data Vitals/I&O Vitals and I&O: Vital Signs Temperature 36.2 C L 07/25/20 07:58 Temperature Source Tympanic 07/25/20 07:58 Pulse 62 07/25/20 07:58 Pulse Rhythm Regular 07/25/20 09:50 Pulse 109 H 07/23/20 19:15 Respiratory Rate 18 07/25/20 07:58 Respiratory Effort Non-Labored 07/25/20 09:50 Respiratory Depth Normal 07/25/20 09:50 Respiratory Pattern Normal 07/25/20 09:50 Blood Pressure 143/89 H 07/25/20 07:58 Blood Pressure Mean 95 07/23/20 19:15 Blood Pressure Position Supine 07/23/20 16:10 Pulse Oximetry 99 07/25/20 07:58 Oxygen Delivery Method Room Air 07/25/20 07:58 Oxygen Flow Rate 0 07/25/20 07:58 Pain Level 0 07/25/20 03:10 Intake & Output 07/24/20 07/24/20 07/25/20 11:59 23:59 11:59 Intake Total 0 / 480 480 / 480 Balance 0 / 480 480 / 480 Intake: IV 0 / 0 Oral 480 / 480 Other: Urine Color Yellow Yellow Urine Appearance Clear Clear Clear Urine Odor None Normal Comment unableto measure, patient flushed Stool Size Moderate Stool Characteristics Formed Voiding Methods Toilet Toilet Data Completed and Pending Completed studies during hospitalization [Text1]: FINDINGS: CT Head W/O: Ventricles and Extra axial spaces: Normal in size and morphology for the patient's age. No significant atrophy. Hemorrhage: None. Cerebral parenchyma: Stable appearance of small bilateral basal ganglia lacunar infarcts. Incidental basal ganglia calcifications. Midline shift: None. Brainstem/Cerebellum: Normal. Calvarium: Normal. Visualized Paranasal sinuses/Mastoids: Mucous retention cyst left maxillary sinus. Soft Tissues: Orbits unremarkable. CTA Brain W: Internal Carotid Arteries: Petrous: Minimal calcification. Cavernous: Normal. Cerebral: Normal. Middle Cerebral Arteries: Right: No aneurysm, occlusion or significant stenosis. Left: No aneurysm, occlusion or significant stenosis. Anterior Cerebral Arteries: Right: No aneurysm, occlusion or significant stenosis. Left: No aneurysm, occlusion or significant stenosis. Posterior cerebral Arteries: Right: No aneurysm, occlusion or significant stenosis. Left: No aneurysm, occlusion or significant stenosis. Vertebral Arteries: Right: No aneurysm, occlusion or significant stenosis. Left: No aneurysm, occlusion or significant stenosis. Basilar Artery: No aneurysm, occlusion or significant stenosis. CTA Neck W: Common Carotid: Right: No aneurysm, occlusion or significant stenosis. Left: No aneurysm, occlusion or significant stenosis. Minimal calcification at the bulb. External Carotid: Right: No aneurysm, occlusion or significant stenosis. Left: No aneurysm, occlusion or significant stenosis. Internal Carotid: Right: No aneurysm, occlusion or significant stenosis. Left: No aneurysm, occlusion or significant stenosis. Vertebral Artery: Right: No aneurysm, occlusion or significant stenosis. Left: No aneurysm, occlusion or significant stenosis. Lung Apices: Normal. Bones: Mild degenerative disc changes and facet degenerative changes. Soft Tissues: Normal. IMPRESSION: 1. Unremarkable CTA examination of the [place]. 2. Noncontrast CT head: Stable small bilateral lacunar infarcts.. 3. Unremarkable CTA examination of the neck. No significant carotid or vertebral stenosis. TECHNIQUE: Imaging protocol: Computed tomography of the head without contrast. 3D rendering (Not supervised by radiologist): MIP and/or 3D reconstructed images were created by the technologist. Other technique: STROKE PROTOCOL was implemented. COMPARISON: CT HEAD WO 03/16/2020 3:09 PM FINDINGS: Brain: Similar faint bilateral basal ganglia calcifications considered benign. No mass, intracranial hemorrhage, brain edema or transcortical defect. There are scattered areas chronic technically nonspecific subcortical white matter hypoattenuation. Tiny round defects in bilateral basal ganglia, old lacunar infarcts versus enlarged perivascular spaces. Cerebral ventricles: No ventriculomegaly. Bones/joints: Normal. Paranasal sinuses: Visualized sinuses are unremarkable. No fluid levels. Mastoid air cells: Normal. Vasculature: Bilateral carotid atherosclerosis and focal calcification in the right vertebral artery. Soft tissues: Unremarkable. IMPRESSION: Atherosclerosis and scattered areas of chronic subcortical gliosis but no findings suspicious for acute brain infarct or other acutely concerning abnormality. Exam(s) a RAD:XR portable chest AP EXAM: XR PORTABLE CHEST AP CLINICAL HISTORY: cva TECHNIQUE: 2D digital imaging was performed. COMPARISON: CR XR CHEST 2V PA LATERAL from 03/20/2020 FINDINGS: LUNGS: Scattered tiny calcified pulmonary nodules, otherwise clear. No pleural abnormality seen. HEART: Mildly enlarged, stable. MEDIASTINUM: Mildly tortuous aorta. OTHER FINDINGS: None. IMPRESSION: No acute pulmonary findings. TECHNIQUE: Imaging protocol: XR of the chest Views: 1 view. COMPARISON: CR XR CHEST 2V PA LATERAL 03/20/2020 9:45 AM FINDINGS: Lungs: Multiple tiny calcified pulmonary nodules are seen throughout the lungs bilaterally. No focal pulmonary infiltrate or pulmonary edema. Pleural space: No pleural effusion or pneumothorax. Heart/Mediastinum: The cardiac silhouette is mildly enlarged. Bones/joints: Unremarkable. Other findings: The patient is significantly rotated. IMPRESSION: No radiographic evidence for acute cardiopulmonary process. No significant change from the prior study. Rotated exam. Dictated and Authenticated by: Ayana Prado MD. COMPARISON: CT CT BRAIN NECK CTA from 07/23/2020 FINDINGS: VENTRICLES AND EXTRA AXIAL SPACES: Normal in size and morphology for the patient's age. HEMORRHAGE: None. CEREBRAL PARENCHYMA: No focus of restricted diffusion to suggest acute infarct. No space-occupying lesion identified. Mild atrophy and prominent perivascular spaces. Basal ganglia calcifications. Scattered tiny punctate low signal foci seen on susceptibility weighted images consistent with sequela of previous microhemorrhages. Patchy areas of high signal in the white matter consistent with sequela of chronic microvascular ischemia. MIDLINE SHIFT: None. BRAINSTEM/CEREBELLUM: Normal. CALVARIUM: Diffuse skull thickening. There is red marrow replacement. Findings could be seen with a anemia VISUALIZED PARANASAL SINUSES/MASTOIDS: Mucous retention cyst left maxillary sinus, otherwise clear The vascular flow voids appear intact. The orbits and pituitary are unremarkable. IMPRESSION: Prominent white matter changes of small vessel disease. Evidence of previous scattered microhemorrhages. No evidence of acute infarct. Conclusion Left Ventricle : The left ventricle is normal size. The left ventricular systolic function is normal. The left ventricular ejection fraction is within the normal range. There is normal left ventricular wall thickness. There is normal LV segmental wall motion. The left ventricular diastolic function is normal. LVEF is 50%. Right Ventricle : Right ventricle is borderline dilated. The right ventricular systolic function is normal. The RVSP is 18.7 mmHg. Atria : The left atrium size is normal. The right atrium size is normal. The interatrial septum is intact with no evidence for an atrial septal defect. Saline bubble contrast intravenous injection does not demonstrate PFO. Valves: There are no hemodynamically significant valvular lesions. Great Vessels : The aortic root is normal in size. The ascending aorta is mildly dilated. Aortic arch is normal in caliber. IVC is normal in size and collapses >50% with inspiration. Please see remainder of study for further details. Labs on day of discharge: Labs from last 24 hours 07/23/20 19:05 COVID-19 PCR Negative Nasopharyn COVID-19 PCR Not Applicable Ref Test Perform Site [facility] ON LICENSE OF [facility] Medical History Arthritis of knee, right GI bleed Gout Hiatal hernia History of depression meds in past presently on no rx for depression History of hemorrhagic stroke with residual hemiparesis Hyperlipidemia Hypertension TIM (obstructive sleep apnea) has used cpap in past presently not using Osteoarthritis Surgical History Bimalleolar fracture of right ankle (03/16/20) March 2020 s/p ORIF History of appendectomy History of arthroscopic knee surgery History of colonoscopy History of hysterectomy Periprosthetic fracture around internal prosthetic right knee joint, initial encounter (03/16/20) March 2020 s/p ORIF Status post total knee replacement, right (02/05/19) Dr. Monge Family History Father Heart disease Social History Smoking/Tobacco Use Status: Never Alcohol Intake: never Drug use: Never Household members: significant other current occupation: retired. Current gender identity: female Do you feel safe at home: Yes Do you feel safe in your relationship?: Yes Additional Social history: Female Reproductive History Menstrual Menopause type: surgical
--- NOTE | 2020-07-25 13:44 | PDOC.CMDIS ---
- If Service Date Differs Date of service: 07/25/20 Time of Service: 13:45 LACE Index Scoring Tool - Questions: Length of Stay (in days): 2 Acuity (Admit via E.D.?): Yes Comorbidities: Cerebrovascular Disease, Diabetes w/o Complication E.D. Visits: 2 - Answers: Total Score: 9 Risk of Readmission: Low Risk Care Management Discharge Reason for Hospitalization: TIA Discharge Plan: Ally will be discharged home today, she will follow up with primary care and neurology as directed. Ally declines any additional serivces at this time. Transportation to be provided by her SO. Patient/Family Education Needs: Discharge education, limitations and follow up plan of care.
== END 2020-07-25 12:57 | disposition home or self-care (01) ==
LOC: ER 19:52 → MS 19:55
PROVIDERS: Admitting Provider General Practice; Emergency Provider Student in an Organized Health Care Education/Training Program; PCP Nurse Practitioner Family; Visit Provider General Practice
DX: G45.9 Transient cerebral ischemic attack, unspecified (principal); R47.01 Aphasia; Z86.73 Personal history of transient ischemic attack (TIA), and cerebral infarction without residual deficits; I25.2 Old myocardial infarction; M10.9 Gout, unspecified; K44.9 Diaphragmatic hernia without obstruction or gangrene; I10 Essential (primary) hypertension; G47.33 Obstructive sleep apnea (adult) (pediatric); Z11.59 Encounter for screening for other viral diseases; Z79.899 Other long term (current) drug therapy; E78.5 Hyperlipidemia, unspecified; E11.42 Type 2 diabetes mellitus with diabetic polyneuropathy; F32.9 Major depressive disorder, single episode, unspecified; G89.29 Other chronic pain; Z96.651 Presence of right artificial knee joint
CPT/HCPCS: 36415; 36416; 70496; 70498; 80053; 80061; 82962; 93005; 93270; 93306; 97162; 97165; 97535; 99215; 99217; 99222; 99223; 99233; 99285; U0003; 70551; 71045; 83036; 84484; 85025; 93010; 93225; 99218; 99226; G0378; J3490

== ENCOUNTER → 2020-07-24 08:09 | Outpatient (BNVA) | payer MEDICARE, OTHER, SELFPAY ==
--- NOTE | 2020-09-22 12:18 | W.CARDEVENT ---
Date of service: 09/22/20 Time of Service: 12:18 Cardiac Event Recorder Referring Provider:: leoncio malone Indications:: cva Cardiac Event Note: This is a 30-day event recorder ordered for indication of CVA. ?The patient was in normal sinus rhythm for majority of the recording with an average heart rate of 68 bpm. ?There was no evidence of atrial fibrillation, no pauses greater than 3 seconds and no evidence of high degree heart block. ?There was one brief automatically detected episode of self-limiting SVT. ?Patient triggered events were associated with sinus rhythm.
== END ==
PROVIDERS: PCP Nurse Practitioner Family; Referring Provider Nurse Practitioner Family; Visit Provider Psychiatry & Neurology Neurology
DX: R69 Illness, unspecified (principal)

== ENCOUNTER 2020-08-19 16:12 | Outpatient (REF) | payer MEDICARE, OTHER, SELFPAY ==
--- NOTE | 2020-08-19 13:15 | SKI_PTH ---
PATIENT: Ally Vega V LOC: [facility] U#:[id number] AGE/SX: 75/F ROOM: RE08/19/[address]: Gill Olmos : 1945 BED: DIS: 08/19/2020 SPEC #: [id number] RECD: 08/19/20 17:26 STATUS: SONJA REQ #: [id number] RICO: 08/19/20 13:[address]: Gill Olmos DEPT: Surgical Specimen RECD BY: Amanda Grigsby ENTERED: 08/19/20 17:27 SP TYPE: PATRICIO FERRER DR: Ximena Graham Tissues: 1 - VULVA BIOPSY Procedures: GROSS AND MICRO LEVEL 4 Comments: [id number] ([id number] [facility]#)
== END 2020-08-19 16:32 ==
LOC: LBN 16:12
PROVIDERS: PCP Nurse Practitioner Family; Visit Provider Obstetrics & Gynecology Gynecology
DX: N76.3 Subacute and chronic vulvitis (principal); N90.69 Other specified hypertrophy of vulva
CPT/HCPCS: 88305

== ENCOUNTER 2020-09-10 11:03 | Outpatient (CLI) | payer MEDICARE, OTHER, SELFPAY ==
--- NOTE | 2020-09-10 10:30 | DI.RAD_ITS ---
EXAM: XR ANKLE RT COMPLETE CLINICAL HISTORY: Follow-up fracture TECHNIQUE: 2D digital imaging was performed. COMPARISON: CR XR ANKLE RT COMPLETE from 06/11/2020 FINDINGS: Again noted is a lateral fixation plate across healed fibular fracture site. Also 2 screws in medial malleolar fracture site, unchanged. The main finding here is that 1 of the 2 parallel syndesmotic screws is slightly more retracted when compared to previous by few millimeters. In addition, the 3rd from top lift nailer appears slightly bent o r possibly fractured. No radiographic evidence of osteomyelitis. IMPRESSION: Hardware changes as described above. DATA REPOSITORY: RADIATION DOSE DELIVERED:
--- NOTE | 2020-09-10 10:30 | DI.RAD_ITS ---
EXAM: XR KNEE RT 2V AP,LAT CLINICAL HISTORY: follow up. TECHNIQUE: 2D digital imaging was performed. COMPARISON: CR XR KNEE RT 2V AP,LAT from 06/11/2020 FINDINGS: Again noted is a lateral fixation plate in the mid-distal femur across a healed fracture site. Ipsil ateral knee prosthesis is again noted. No evidence of new fractures. No screw loosening. No radiog raphic evidence of osteomyelitis. IMPRESSION: Satisfactory appearance. DATA REPOSITORY: RADIATION DOSE DELIVERED:
== END 2020-09-10 11:23 ==
PROVIDERS: PCP Nurse Practitioner Family; Referring Provider Physician Assistant Medical; Visit Provider Student in an Organized Health Care Education/Training Program
DX: S72.491D Other fracture of lower end of right femur, subsequent encounter for closed fracture with routine healing; Z96.651 Presence of right artificial knee joint; S82.51XA Displaced fracture of medial malleolus of right tibia, initial encounter for closed fracture; G45.8 Other transient cerebral ischemic attacks and related syndromes; R47.01 Aphasia; N76.3 Subacute and chronic vulvitis; M97.11XD Periprosthetic fracture around internal prosthetic right knee joint, subsequent encounter; S82.841D Displaced bimalleolar fracture of right lower leg, subsequent encounter for closed fracture with routine healing; X58.XXXD Exposure to other specified factors, subsequent encounter
CPT/HCPCS: 99214; 73560; 73610

== ENCOUNTER 2020-09-22 12:18 | Outpatient (CLI) | payer MEDICARE, OTHER, SELFPAY | END 2020-09-22 12:38 | PROVIDERS: PCP Nurse Practitioner Family; Referring Provider Internal Medicine Cardiovascular Disease; Visit Provider Internal Medicine Cardiovascular Disease | DX: I63.9 Cerebral infarction, unspecified (principal) | CPT/HCPCS: 93272 ==

== ENCOUNTER 2021-04-07 11:52 | Outpatient (CLI) | payer MEDICARE, OTHER, SELFPAY ==
--- NOTE | 2021-04-07 11:30 | DI.RAD_ITS ---
Exam(s) XR ANKLE RT COMPLETE EXAM: XR ANKLE RT COMPLETE CLINICAL HISTORY: right ankle pain. TECHNIQUE: 2D digital imaging was performed. COMPARISON: CR XR ANKLE RT COMPLETE from 09/10/2020 FINDINGS: BONES: No acute fracture is present. No bony destructive lesion is seen. The fracture of the most roy perior syndesmotic screw is noted. There has been some retraction of the lateral screw segment. Per iosteal reaction is seen in the distal tibia. There is also now a fracture of the middle syndesmotic screw. The bones appear intact. Is osteopenia. JOINTS: The ankle mortise is normally aligned. SOFT TISSUE: Soft tissue swelling about the ankle. IMPRESSION: Fractures of the 2 superior most syndesmotic screws. Please see the above discussion for complete de tails. DATA REPOSITORY: RADIATION DOSE DELIVERED:
--- NOTE | 2021-04-07 11:30 | DI.RAD_ITS ---
Exam(s) XR KNEE RT 2V AP,LAT EXAM: XR KNEE RT 2V AP,LAT CLINICAL HISTORY: right knee pain. TECHNIQUE: 2D digital imaging was performed. COMPARISON: CR XR KNEE RT 2V AP,LAT from 09/10/2020 FINDINGS: BONES: No acute fracture is present. No bony destructive lesion is seen. A sideplate and screws are a gain seen transfixing the old healed distal right femoral fracture. JOINTS: The knee is normally aligned. No joint effusion is seen. Findings of a prior right total knee replacement are again noted. SOFT TISSUE: Normal. IMPRESSION: No acute abnormality. DATA REPOSITORY: RADIATION DOSE DELIVERED:
== END 2021-04-07 11:53 | disposition home or self-care (01) ==
LOC: DIORS 11:52
PROVIDERS: PCP Nurse Practitioner Family; Referring Provider Nurse Practitioner Family; Visit Provider Student in an Organized Health Care Education/Training Program
DX: S82.841D Displaced bimalleolar fracture of right lower leg, subsequent encounter for closed fracture with routine healing (principal); M97.11XD Periprosthetic fracture around internal prosthetic right knee joint, subsequent encounter; Z96.651 Presence of right artificial knee joint; D17.20 Benign lipomatous neoplasm of skin and subcutaneous tissue of unspecified limb; M17.12 Unilateral primary osteoarthritis, left knee; X58.XXXD Exposure to other specified factors, subsequent encounter; M25.561 Pain in right knee; M25.571 Pain in right ankle and joints of right foot
CPT/HCPCS: 99214; 99215; 73560; 73610

== ENCOUNTER 2021-04-14 03:00 | Outpatient (CLI) | payer MEDICARE, OTHER, SELFPAY ==
[2021-04-15 08:12] LABS: Source Nasal/Nares
[2021-04-15 16:38] LABS: COVID-19 PCR Negative (Negative)
== END 2021-04-14 03:01 | disposition home or self-care (01) ==
LOC: LBO 03:01
PROVIDERS: PCP Nurse Practitioner Family; Visit Provider Student in an Organized Health Care Education/Training Program
DX: Z20.822 Contact with and (suspected) exposure to COVID-19 (principal); Z01.818 Encounter for other preprocedural examination
CPT/HCPCS: 87635; U0003

== ENCOUNTER 2021-04-16 07:06 | Day surgery (SDC) | payer MEDICARE, OTHER, SELFPAY ==
--- NOTE | 2021-04-14 18:06 | W.ANESCON ---
General Date of Service Date of Service: 04/14/21 Reason for Consult Requesting Provider: Peng Gauthier How Consult Conducted:: Chart Review Reason for Consult:: CVA/TIA hx Consult Recommendation after Review:: ok to proceed Height: 5 ft 9 in Weight: 98.883 kg Body Mass Index (BMI): 32.1 Meds Allergies and Home Medications Allergies Allergy/AdvReac Type Severity Reaction Status Date / Time aspirin Allergy Severe GI Bleed Verified 04/14/21 10:06 ibuprofen [From Motrin] Allergy Severe GI Bleed Verified 04/14/21 10:06 Tetracyclines Allergy Severe Makes my Verified 04/14/21 10:06 skin peel and throat close up buspirone Allergy Unknown Verified 04/14/21 10:06 codeine Allergy Unknown Verified 04/14/21 10:06 pentazocine [From Talwin] Allergy Unknown Verified 04/14/21 10:06 sulfamethoxazole Allergy Unknown Verified 04/14/21 10:06 [From Bactrim] trimethoprim [From Bactrim] Allergy Unknown Verified 04/14/21 10:06 ciprofloxacin [From Cipro] AdvReac Severe made my Verified 04/14/21 10:06 stomach bleed duloxetine [From Cymbalta] AdvReac Severe made me Verified 04/14/21 10:06 sick and suicidal prednisone AdvReac Severe Raises BP Verified 04/14/21 10:06 and blood sugar per Pt tramadol AdvReac Severe major GI Verified 04/14/21 10:06 upset oxycodone [From Percocet] AdvReac Unknown Verified 04/14/21 10:06 propoxyphene AdvReac Unknown Verified 04/14/21 10:06 [From Darvocet-N] Home Medication Medication Instructions Recorded cyanocobalamin (vitamin B-12) 500 500 mcg PO DAILY 07/11/18 mcg tablet lisinopril 20 mg tablet 20 mg PO BID tab 07/11/18 multivitamin 1 tab PO DAILY 07/11/18 albuterol sulfate [Ventolin HFA] 2 puff INHALATION Q6H PRN 06/18/19 ascorbic acid (vitamin C) [Vitamin 500 mg PO BID #0 tab 03/21/20 C] Tall walker #1 ea 06/05/20 Co Q-10 300 mg PO DAILY 07/23/20 acetaminophen [Acetaminophen Extra 500 mg PO Q6H PRN 07/23/20 Strength] amlodipine 10 mg PO DAILY 07/23/20 cholecalciferol (vitamin D3) 50 mcg PO DAILY 07/23/20 [Vitamin D3] gabapentin 300 mg PO TID 07/23/20 rosuvastatin 10 mg PO DAILY 07/23/20 famotidine 40 mg PO DAILY #30 tab 07/25/20 clopidogrel 75 mg tablet 75 mg PO DAILY #90 tab 08/18/20 labetalol 200 mg tablet 100 mg PO BID tab 09/10/20 PFSH Active Problems Active Problems: Problem Status Onset Code Arthritis of knee, left M17.12 Lipoma of extremity D17.20 S/P skin biopsy Z98.890 TIA (transient ischemic attack) G45.9 Bimalleolar fracture of right ankle 03/16/20 S82.841A Periprosthetic fracture around internal prosthetic right knee joint, initial encounter 03/16/20 M97.11XA Status post total knee replacement, right 02/05/19 Z96.651 Aphasia R47.01 Lumbago with sciatica M54.40 GERD (gastroesophageal reflux disease) K21.9 Sleep apnea G47.30 Mixed hyperlipidemia E78.2 AV block, 1st degree I44.0 Vulvitis N76.2 Fever R50.9 Discharge planning issues Z02.9 DVT prophylaxis Z29.9 Neuropathy G62.9 COPD without exacerbation J44.9 Diabetes mellitus E11.9 CVA (cerebral vascular accident) I63.9 Hypertension I10 Medical History Medical History (Updated 04/14/21 @ 10:03 by Jose Angel Robert) Arthritis of knee, right GI bleed Gout Hiatal hernia History of depression meds in past presently on no rx for depression History of hemorrhagic stroke with residual hemiparesis (R) Hyperlipidemia Hypertension TIM (obstructive sleep apnea) has used cpap in past presently not using Osteoarthritis Surgical History Surgical History Bimalleolar fracture of right ankle (03/16/20) March 2020 s/p ORIF History of appendectomy History of arthroscopic knee surgery History of colonoscopy History of hysterectomy Periprosthetic fracture around internal prosthetic right knee joint, initial encounter (03/16/20) March 2020 s/p ORIF S/P skin biopsy 08/2020. R side of vaginal vestibule. Status post total knee replacement, right (02/05/19) Dr. Monge Tobacco Smoking/Tobacco Use Status: Never Alcohol Alcohol Intake: never Substance Use Substance use: Never Substance use type: does not use Vital Signs & Lab Results Point of Care Results Nursing Point of Care Results: No Data to Display Lab Results Blood Type / Crossmatch: No Data to Display Complete Blood Count: No Data to Display Complete Metabolic Panel: No Data to Display Liver Function Panel: No Data to Display Coagulation Panel: No Data to Display Cardiac Panel: No Data to Display Arterial Blood Gas: No Data to Display Venous Blood Gas: No Data to Display Pancreas Panel: No Data to Display Thyroid Panel: No Data to Display Infectious Disease: No Data to Display Blood Cultures: No Data to Display Toxicology Panel: No Data to Display Imaging and Studies Imaging and Studies EKG Summary: 07/22: NSR, prolonged [place]. Stress Test Summary: 06/21: no defects noted, LVEF 58%. Echocardiogram Summary: 07/22: LVEF 50%, RVSP 18, trace MR/TR. CT Summary: 07/22 CTA head/neck: unremarkable, no significant stenosis. Anesthesia Assessment and Plan Preoperative Comments:: 75 yo F for right ankle hardware removal. History TIA in July of 2020, and also recurrent hypertensive hemorrhagic strokes in 2012, 2013, 2015(her BP is now well controlled) for which she has residual right sided weakness (per neurology). She had an extensive workup with the etiology of the TIA being unknown. At the time of her TIA she was not on an antiplt medication and she was subsequently started on plavix. Previous glide 3 grade 1, easy mask, also a previous spinal for her TKA.
[2021-04-14 18:25] VITALS: BMI 32.1
[2021-04-16 07:13] VITALS: BP 154/90; PULSE 68; RESP 18; TEMP 36.6; O2SAT 95
--- NOTE | 2021-04-16 07:45 | W.ANESPRE ---
General Info Date of Service Date Performed: 04/16/21 Height: 5 ft 9 in Weight: 98.883 kg Body Mass Index (BMI): 32.1 Surgical Procedure: Operation Date: 04/16/21 08:40 Proposed Procedures Side Surgeon p Ankle Hardware Removal Right Peng Gauthier MD Meds Allergies and Home Medications Allergies Allergy/AdvReac Type Severity Reaction Status Date / Time aspirin Allergy Severe GI Bleed Verified 04/14/21 10:06 ibuprofen [From Motrin] Allergy Severe GI Bleed Verified 04/14/21 10:06 Tetracyclines Allergy Severe Makes my Verified 04/14/21 10:06 skin peel and throat close up buspirone Allergy Unknown Verified 04/14/21 10:06 codeine Allergy Unknown Verified 04/16/21 07:32 pentazocine [From Talwin] Allergy Unknown Verified 04/16/21 07:32 sulfamethoxazole Allergy Unknown Verified 04/16/21 07:32 [From Bactrim] trimethoprim [From Bactrim] Allergy Unknown Verified 04/16/21 07:32 ciprofloxacin [From Cipro] AdvReac Severe made my Verified 04/16/21 07:32 stomach bleed duloxetine [From Cymbalta] AdvReac Severe made me Verified 04/16/21 07:32 sick and suicidal prednisone AdvReac Severe Raises BP Verified 04/16/21 07:32 and blood sugar per Pt tramadol AdvReac Severe major GI Verified 04/16/21 07:32 upset oxycodone [From Percocet] AdvReac Unknown Verified 04/16/21 07:32 propoxyphene AdvReac Unknown Verified 04/16/21 07:32 [From Darvocet-N] Home Medication Medication Instructions Recorded cyanocobalamin (vitamin B-12) 500 500 mcg PO DAILY 07/11/18 mcg tablet lisinopril 20 mg tablet 20 mg PO BID tab 07/11/18 multivitamin 1 tab PO DAILY 07/11/18 albuterol sulfate [Ventolin HFA] 2 puff INHALATION Q6H PRN 06/18/19 ascorbic acid (vitamin C) [Vitamin 500 mg PO BID #0 tab 03/21/20 C] Tall walker #1 ea 06/05/20 Co Q-10 300 mg PO DAILY 07/23/20 acetaminophen [Acetaminophen Extra 500 mg PO Q6H PRN 07/23/20 Strength] amlodipine 10 mg PO DAILY 07/23/20 cholecalciferol (vitamin D3) 50 mcg PO DAILY 07/23/20 [Vitamin D3] gabapentin 300 mg PO TID 07/23/20 rosuvastatin 10 mg PO DAILY 07/23/20 famotidine 40 mg PO DAILY #30 tab 07/25/20 clopidogrel 75 mg tablet 75 mg PO DAILY #90 tab 08/18/20 labetalol 200 mg tablet 100 mg PO BID tab 09/10/20 Levemir FlexTouch U-100 Insuln 22 - 24 unit SUBCUT BID 04/15/21 oxycodone 2.5 - 5 mg PO Q4H PRN #5 tab 04/16/21 Current Visit Medications: Current Medications Generic Name Dose Route Start Last Admin Trade Name Freq PRN Reason Stop Dose Admin Ringer's Solution 1,000 mls @ 100 mls/hr 04/16/21 06:00 IV 05/15/21 23:59 INFUSION GUILLE Cefazolin Sodium/Dextrose 2 gm in 50 mls @ 100 mls/hr 04/16/21 06:00 Ancef Duplex IVPB 04/16/21 16:00 PREOP GUILLE IV Miscellaneous Supplies 1 each 04/16/21 06:00 Iv Access IV 05/15/21 23:59 DIRECTED GUILLE Sodium Chloride 0 ml 04/16/21 06:00 Normal Saline Flush 10 Ml Syr IV 05/15/21 23:59 PRN PRN Sodium Chloride 0 ml 04/16/21 06:00 Normal Saline 10 Ml Vial IJ 05/15/21 23:59 DIRECTED PRN Sterile Water 0 ml 04/16/21 06:00 Water,Injection,Sterile 10 Ml Vial IJ 05/15/21 23:59 DIRECTED PRN PFSH Active Problems Active Problems: Problem Status Onset Code CVA (cerebral vascular accident) I63.9 Diabetes mellitus E11.9 COPD without exacerbation J44.9 Neuropathy G62.9 DVT prophylaxis Z29.9 Discharge planning issues Z02.9 Fever R50.9 Vulvitis N76.2 AV block, 1st degree I44.0 Mixed hyperlipidemia E78.2 Sleep apnea G47.30 GERD (gastroesophageal reflux disease) K21.9 Lumbago with sciatica M54.40 Aphasia R47.01 TIA (transient ischemic attack) G45.9 Lipoma of extremity D17.20 Arthritis of knee, left M17.12 S/P skin biopsy Z98.890 Bimalleolar fracture of right ankle 03/16/20 S82.841A Periprosthetic fracture around internal prosthetic right knee joint, initial encounter 03/16/20 M97.11XA Status post total knee replacement, right 02/05/19 Z96.651 Hypertension I10 Medical History Medical History (Updated 04/16/21 @ 09:03 by Peng Gauthier MD) Arthritis of knee, right GI bleed Gout Hiatal hernia History of depression meds in past presently on no rx for depression History of hemorrhagic stroke with residual hemiparesis (R) Hyperlipidemia Hypertension TIM (obstructive sleep apnea) has used cpap in past presently not using Osteoarthritis Surgical History Surgical History Bimalleolar fracture of right ankle (03/16/20) March 2020 s/p ORIF History of appendectomy History of arthroscopic knee surgery History of colonoscopy History of hysterectomy Periprosthetic fracture around internal prosthetic right knee joint, initial encounter (03/16/20) March 2020 s/p ORIF S/P skin biopsy 08/2020. R side of vaginal vestibule. Status post total knee replacement, right (02/05/19) Dr. Monge Tobacco Smoking/Tobacco Use Status: Never Alcohol Alcohol Intake: never Substance Use Substance use: Never Substance use type: does not use Vital Signs and Lab Results Vital Signs Most Recent Vital Signs in EMR: Most Recent Vital Signs Temp Pulse Resp BP Pulse Ox 36.6 C 68 18 154/90 H 95 04/16/21 07:13 04/16/21 07:13 04/16/21 07:13 04/16/21 07:13 04/16/21 07:13 Lab Results Blood Type / Crossmatch: No Data to Display Complete Blood Count: No Data to Display Complete Metabolic Panel: No Data to Display Liver Function Panel: No Data to Display Coagulation Panel: No Data to Display Cardiac Panel: No Data to Display Arterial Blood Gas: No Data to Display Venous Blood Gas: No Data to Display Pancreas Panel: No Data to Display Thyroid Panel: No Data to Display Infectious Disease: Coronavirus (COVID-19)(PCR) Negative (Negative) 04/14/21 10:53 04/14/21 Coronavirus 2019 Source Nasal/Nares 04/14/21 10:53 04/14/21 Blood Cultures: No Data to Display Toxicology Panel: No Data to Display Imaging and Studies Imaging and Studies EKG Summary: 07/22: NSR, prolonged [place]. Stress Test Summary: 06/21: no defects noted, LVEF 58%. Echocardiogram Summary: 07/22: LVEF 50%, RVSP 18, trace MR/TR. CT Summary: 07/22 CTA head/neck: unremarkable, no significant stenosis. Anesthesia Assessment and Plan Anesthesia History Personal History: No History of Anesthesia Complications Family History: No Family History of Anesthesia Complications Exercise Tolerance Exercise Tolerance: Metabolic Equivalents<4 (Sob with exertiom) Pertinent Negatives Pertinent Negatives: No Symptoms of GERD, No Major Cardiovascular Symptoms or Complaints and Other (SOB with exertion, PRN inhaler use , multiple cvas (greater than 6 months prior) on plavix) Cardiac & Pulmonary Exam Cardiac Exam: Normal S1/S2 Heart Sounds Pulmonary Exam: Clear Bilateral Breath Sounds Airway Exam Known Difficult Airway: No Mallampati Class: 3 Mouth Opening: Normal (> 3cm) Thyromental Distance: Greater than 3 cm Neck Range of Motion: Full ROM Neck Circumference: Normal Teeth Condition: Normal Dentition ASA Classification ASA Score: ASA 3 Emergency Case?: No NPO Status NPO Status: NPO Clears >2 hours, Solids >8 hours Anesthesia Plan Resuscitation Status: Full Code Anesthesia Technique: General Anesthesia Airway Planned: Natural Airway Monitors Used: Standard Monitors Preoperative Comments:: 75 yo F for right ankle hardware removal. History TIA in July of 2020, and also recurrent hypertensive hemorrhagic strokes in 2012, 2013, 2014(her BP is now well controlled) for which she has residual right sided weakness (per neurology). She had an extensive workup with the etiology of the TIA being unknown. At the time of her TIA she was not on an antiplt medication and she was subsequently started on plavix. Previous glide 3 grade 1, easy mask, also a previous spinal for her TKA.
[2021-04-16] MEDS: Lactated Ringers 1,000 ML 100 ML IV (08:09)
--- NOTE | 2021-04-16 08:45 | DI.RAD_ITS ---
Exam(s) XR ANKLE RT 2V EXAM: XR ANKLE RT 2V CLINICAL HISTORY: Bimalleolar fracture of right ankle. TECHNIQUE: 2D digital imaging was performed. COMPARISON: CR XR ANKLE RT COMPLETE from 04/07/2021 FINDINGS: Raspy was provided during orthopedic procedure on the ankle. Submitted single AP image reveals the p reviously described hardware. The lower most horizontal screw at the level of the metaphysis has bee n removed. IMPRESSION: As above. Total fluoroscopy time 3 seconds Cumulative dose 0.09mGy DATA REPOSITORY: RADIATION DOSE DELIVERED:
[2021-04-16 09:26] VITALS: BMI 32.1
[2021-04-16] MEDS: ceFAZolin 2 GM/50 ML BAG IVPB (09:37)
[2021-04-16 10:09] VITALS: BP 142/78; PULSE 70; RESP 16; TEMP 36.3; O2SAT 94
--- NOTE | 2021-04-16 10:18 | PDOC.DSDIS_ITS ---
Discharge Plan Disposition Patient Disposition: HOME Condition: Stable Discharge Details Reason For Visit: Right ankle removal of hardware Attending Provider: Peng Gauthier Primary Care Provider: Ximena Graham Home Meds and New Rx's Prescriptions: New oxycodone 5 mg tablet 2.5 - 5 mg PO Q4H PRN (Reason: moderate to severe pain) Qty: 5 RF: 0 Continued multivitamin tablet 1 tab PO DAILY RF: 0 lisinopril 20 mg tablet 20 mg PO BID RF: 0 cyanocobalamin (vitamin B-12) [Vitamin B-12] 500 mcg tablet 500 mcg PO DAILY RF: 0 (DME) Tall walker See Rx Instructions .Route .MEDSUPPLY Qty: 1 RF: 0 clopidogrel [Plavix] 75 mg tablet 75 mg PO DAILY Qty: 90 RF: 3 labetalol 200 mg tablet 100 mg PO BID RF: 0 albuterol sulfate [Ventolin HFA] 90 mcg/actuation Hfa Aerosol Inhaler 2 puff INHALATION Q6H PRNRF: 0 ascorbic acid (vitamin C) [Vitamin C] 500 mg Tablet 500 mg PO BID Qty: 0 RF: 0 acetaminophen [Acetaminophen Extra Strength] 500 mg Tablet 500 mg PO Q6H PRNRF: 0 amlodipine 10 mg tablet 10 mg PO DAILY RF: 0 rosuvastatin 10 mg tablet 10 mg PO DAILY RF: 0 Co Q-10 300 mg Capsule 300 mg PO DAILY RF: 0 cholecalciferol (vitamin D3) [Vitamin D3] 50 mcg (2,000 unit) Capsule 50 mcg PO DAILY RF: 0 gabapentin 300 mg capsule 300 mg PO TID RF: 0 famotidine 40 mg tablet 40 mg PO DAILY Qty: 30 RF: 0 Levemir FlexTouch U-100 Insuln 100 unit/mL (3 mL) insulin pen 22 - 24 unit SUBCUT BID RF: 0 Discharge Instructions Additional Instructions: Surgery: Right ankle removal of hardware Activity: Weightbearing as tolerated. No brace needed as soon as comfortable. Recommend elevation to minimize swelling and discomfort. Prescriptions: Continue clopidogrel as prescribed Oxycodone 2.5 - 5 mg take 0.5 - 1 every 4 hours as needed for severe pain You may use [id number] Tylenol (acetaminophen) as needed for mild pain. These pain medications may be taken all at once or in different combinations as needed. Also, recommend Colace (docusate) as a stool softener as surgery and pain medicine cause constipation. Dressings: Leave dressing in place for 5 days. May then remove and leave open to air or cover incision with Band-Aid. May shower after 7 days. Follow-up: 10-[address] Gauthier (04/29/21 at 11:15 AM) Let us know right away if you develop any redness, drainage, fevers, chest pain, or trouble breathing. Do not drink alcohol or drive for at least 24 hours after anesthesia. Please call the office during business hours with any questions or concerns. Referrals: Peng Gauthier MD [ [facility] STAFF PHYSICIAN] - Discharge Orders Discharge Orders: Discharge Order (Routine); Ordered 04/16/21 Ordered By: Peng Gauthier DS: Diagnosis Discharge Diagnosis (1) Bimalleolar fracture of right ankle: Status: Acute (2) Painful orthopaedic hardware: Status: Acute
--- NOTE | 2021-04-16 10:21 | W.PM.OP ---
Date of service: 04/16/21 Time of Service: 09:30 Operative Note Operative Note DATE OF PROCEDURE: 04/16/21 PRE-OP DIAGNOSIS: 1. Right ankle retained syndesmotic screw 2. Right ankle symptomatic hardware POST-OP DIAGNOSIS: same PROCEDURE: Right ankle removal of hardware, CPT #61675 SURGEON: Peng Gauthier VICE PRESIDENT RESEARCH: None None ANESTHESIA TYPE: Local By Surgeon and MAC Refer to Anesthesia Record ESTIMATED BLOOD LOSS: 2 PATHOLOGY: none sent TOURNIQUET TIME: 0 COMPLICATIONS: None Patient was transported to: PACU Patient's condition: stable Indications: Please see complete medical record for details. Procedure Description: In the operating room, monitored anesthesia care was induced. The patient was positioned supine on the operating room table. All bony prominences were well-padded. Preoperative antibiotics were administered. The right ankle was prepped and draped in the usual sterile fashion. The correct patient, procedure, and side of the procedure were all verified prior to incision. The single planned syndesmotic screw was palpable the distal aspect of the incision. Fluoroscopy was used to confirm correct screw identification. 6 cc of 0.5% bupivacaine with epinephrine was infiltrated about the screw head. There was no other prominent or significantly palpable medial or lateral hardware. A small stab incision was made through the prior lateral incision with spreading readily identifying the screw of interest. Soft tissue was spread off the screw head, the screwdriver was engaged, and the screw was easily backed out and removed in entirety. Fluoroscopy was used to confirm complete removal of the only remaining intact syndesmotic screw. No additional hardware or screws were removed given lack of symptoms and no need to extend the case in a high risk patient. The small incision was irrigated and dried. The skin was closed using 3-0 Monocryl in a buried interrupted fashion. Steri-Strips were applied over the incision followed by a small Mepilex Band-Aid. The patient awoke from anesthesia without complication and was transferred to the recovery room in a stable condition.
--- NOTE | 2021-04-16 10:22 | W.ANESPOSTOP ---
Postoperative Evaluation Date, Time and Location Date Performed: 04/16/21 Time Performed: 10:15 Patient Location: Day Surgery Unit Vital Signs Most Recent Imported Vital Signs: Most Recent Vital Signs Temp Pulse Resp BP Pulse Ox 36.3 C L 70 16 142/78 H 94 04/16/21 10:09 04/16/21 10:09 04/16/21 10:09 04/16/21 10:09 04/16/21 10:09 Pain Score Most Recent Pain Score: Most Recent Pain Score Pain Level 0 04/16/21 10:09 Assessment Mental Status: Awake (Alert & Oriented to Patient Baseline) Airway and Respiratory Function: Patent airway with normal (patient baseline) respiratory exam Cardiovascular Function: Hemodynamically Stable Hydration Status: Adequately Hydrated Nausea & Vomiting: No Nausea or Vomiting Pain: Pt. Denies Any Pain Peripheral Nerve Block: Patient did not receive a nerve block (Local injected by surgeon)
[2021-04-16 10:39] VITALS: BP 149/85; PULSE 70; RESP 17; TEMP 36.5; O2SAT 95
== END 2021-04-16 11:00 | disposition home or self-care (01) ==
PROVIDERS: PCP Nurse Practitioner Family; Visit Provider Student in an Organized Health Care Education/Training Program
PROC: (CPT 20680; principal; 2021-04-16 08:30)
DX: T84.84XA Pain due to internal orthopedic prosthetic devices, implants and grafts, initial encounter; I10 Essential (primary) hypertension; G47.33 Obstructive sleep apnea (adult) (pediatric); E78.5 Hyperlipidemia, unspecified
CPT/HCPCS: 20680; 73600; J0690; J2001

== ENCOUNTER 2021-04-29 11:29 | Outpatient (CLI) | payer MEDICARE, OTHER, SELFPAY ==
--- NOTE | 2021-04-29 11:15 | DI.RAD_ITS ---
Exam(s) XR KNEE LT 3V AP,LAT,VINCENT EXAM: XR KNEE LT 3V AP,LAT,VINCENT CLINICAL HISTORY: Left knee pain f/u. TECHNIQUE: 2D digital imaging was performed. COMPARISON: CR XR KNEE RT 2V AP,LAT from 04/07/2021 FINDINGS: There is no evidence of fracture or joint effusion. Mild narrowing of the medial compartment is note d. Lateral compartment exhibits normal height. In the patellofemoral compartment there is narrowing which is most prominent in the medial aspect of the patellofemoral compartment. IMPRESSION: Degenerative changes, most evident in the patellofemoral compartment. No osteochondral defects evide nt. DATA REPOSITORY: RADIATION DOSE DELIVERED:
== END 2021-04-29 11:30 | disposition home or self-care (01) ==
LOC: DIORS 11:29
PROVIDERS: PCP Nurse Practitioner Family; Referring Provider Nurse Practitioner Family; Visit Provider Student in an Organized Health Care Education/Training Program
DX: M17.12 Unilateral primary osteoarthritis, left knee (principal); Z47.89 Encounter for other orthopedic aftercare; M25.571 Pain in right ankle and joints of right foot; M25.562 Pain in left knee
CPT/HCPCS: 20610; 73562; 99213; J1040

== ENCOUNTER 2021-05-11 10:14 | Outpatient (CLI) | payer MEDICARE, OTHER, SELFPAY ==
[2021-05-11 10:05] LABS: Hemoglobin A1C 7.2 % (<5.7)
[2021-05-11 10:38] LABS: Anion Gap 9.4 mmol/L (3-11); BUN 18 mg/dL (7-18); CO2 27.6 mmol/L (21.0-32.0); CREATININE 0.6 mg/dL (0.55-1.02); Calcium 8.9 mg/dL (8.5-10.1); Calculated LDL 78 mg/dL (<100); Chloride 106 mmol/L (98-107); Cholesterol 150 mg/dL (<200); Glucose 105 mg/dL (74-106); HDL Cholesterol 56 mg/dL (40-60); Potassium 4.3 mmol/L (3.5-5.1); Sodium 143 mmol/L (136-145); Triglyceride 81 mg/dL (<150)
== END 2021-05-11 10:15 | disposition home or self-care (01) ==
LOC: LBO 10:16
PROVIDERS: PCP Nurse Practitioner Family; Visit Provider Nurse Practitioner Family
DX: E78.2 Mixed hyperlipidemia (principal); E11.311 Type 2 diabetes mellitus with unspecified diabetic retinopathy with macular edema
CPT/HCPCS: 36415; 80048; 80061; 83036

== ENCOUNTER 2021-05-14 10:50 | Outpatient (REF) | payer MEDICARE, OTHER, SELFPAY ==
[2021-05-14 14:32] LABS: ALT 26 U/L (14-59); AST 18 U/L (15-37); Albumin 3.8 g/dL (3.4-5.0); Alkaline Phosphatase 114 U/L (46-116); Amylase 72 U/L (25-115); Bilirubin, Direct 0.1 mg/dL (0.0-0.2); Bilirubin, Total 0.4 mg/dL (0.2-1.0); Lipase 145 U/L (73-393); Total Protein 6.9 g/dL (6.4-8.2)
== END 2021-05-14 10:51 | disposition home or self-care (01) ==
LOC: NCHCN 10:50
PROVIDERS: PCP Nurse Practitioner Family; Visit Provider Nurse Practitioner Family
DX: R10.11 Right upper quadrant pain (principal); R10.12 Left upper quadrant pain; R14.2 Eructation
CPT/HCPCS: 80076; 83690; 82150

== ENCOUNTER → 2021-08-05 10:52 | Outpatient (BNVA) | payer MEDICARE, OTHER, SELFPAY | PROVIDERS: PCP Nurse Practitioner Family; Referring Provider Nurse Practitioner Family; Visit Provider Student in an Organized Health Care Education/Training Program | DX: M17.12 Unilateral primary osteoarthritis, left knee (principal); Z98.890 Other specified postprocedural states | CPT/HCPCS: 99213; J1040 ==

== ENCOUNTER 2021-08-28 15:20 | Inpatient (IN) | payer MEDICARE, OTHER, SELFPAY ==
[2021-08-28] VITALS (16 sets, daily range): BP systolic 127–175; BP diastolic 80–110; PULSE 68–88; RESP 12–23; TEMP 36.4–36.8; O2SAT 95–100
--- NOTE | 2021-08-28 15:15 | RT.EKG_ITS ---
APPROVED REPORT Exam: Resting ECG Reason for Exam: chest pain Patient Location: E HR:80 bpm ECG Measurements Heart Rate 80 AXIS NE 272 P 68 QRSd 96 QRS -15 QT 394 T 96 QTc 456 Conclusion Sinus rhythm...normal P axis, V-rate 60- 99 Prolonged NE interval...NE >220, V-rate 50- 90 Low voltage, precordial leads...precordial leads <1.0mV Probable LVH with secondary repol abnrm...multiple LVH criteria
--- NOTE | 2021-08-28 17:00 | DI.RAD_ITS ---
Exam(s) XR PORTABLE CHEST AP EXAM: XR PORTABLE CHEST AP CLINICAL HISTORY: chest pain. TECHNIQUE: 2D digital imaging was performed. COMPARISON: CR,XR XR PORTABLE CHEST AP from 07/23/2020 FINDINGS: Heart size is again noted be slightly prominent.. The mediastinum is not widened. There are no confluent infiltrates in right lung. Appears to be scarring left lung base. No obvious pleural effusion. No pulmonary edema. Chest leads in place IMPRESSION: No acute pulmonary findings on this single AP portable view of the chest.There is scarring in the lef t lung base. DATA REPOSITORY: RADIATION DOSE DELIVERED: All CT scans at this facility use at least one of these dose optimization techniques: automated exposure control; mA and/or kV adjustment per patient size (includes targeted e xams where dose is matched to clinical indication); or iterative reconstruction.
[2021-08-28 17:17] LABS: Abs Immature Grans 0.05 10^3/uL (0.0-0.06); Absolute Basophil Count 0.08 10^3/uL (0.0-0.2); Absolute Eosinophil Count 0.16 10^3/uL (0.0-0.7); Absolute Lymphocyte Count 1.84 10^3/uL (1.2-3.4); Absolute Monocyte Count 0.64 10^3/uL (0.1-0.8); Absolute Neutrophil Count 7.27 10^3/uL (1.2-6.7); Basophils % 0.8; Eosinophils % 1.6; HCT 40.8 % (36.0-46.0); Immature Grans % 0.5; Lymphocytes % 18.3; MCH 29.2 pg (27.0-33.0); MCHC 31.9 % (32.0-36.0); MCV 91.7 fL (80-95); MPV 9.8 fL (8.0-11.0); Monocytes % 6.4; Neutrophils % 72.4; Nucleated RBC 0 %; Platelet Count 221 10^3/uL (130-400); RBC 4.45 10^6/uL (3.93-5.22); RDW 13.2 % (11.7-14.6); RDW-SD 44.6 fL; WBC 10.04 10^3/uL (4.4-10.8)
--- NOTE | 2021-08-28 17:26 | W.ED.GENAD ---
Discharge Plan Disposition Patient Disposition: [facility] INPATIENT Condition: Improving Discharge Details Clinical Impression: Chest pain, Shortness of breath Admit Date/Time: 08/28/21 21:27 Admit Provider: Abraham Otero Attending Provider: Abraham Otero Primary Care Provider: Ximena Graham ED Provider: Malachi Srinivasan Discharge Data Discharge Date/Time-TO BE ENTERED AT DEPARTURE: 08/28/21 22:05 Medical Decision Making <Jovanni Haley MD - Last Filed: 09/07/21 17:28> 1732 --76-year-old female multiple medical problems occluding history of CVA, hypertension, hyperlipidemia, diabetes, first-degree AV block, GERD, here with exertional shortness of breath and left anterior chest pain over the past few week. Patient is hypertensive. She has no chest pain at rest but notes when she has any exertion she develops pain. She is saturating well in no respiratory distress. Concern for ACS. Screening ECG was reviewed and interpreted by me: Sinus rhythm 80 bpm, no ST elevation, very subtle ST depression noted lead I, aVL and V4 V5. Patient was seen today at primary care clinic and records were sent for review. EKG from primary care clinic does have findings present on ED EKG and care including very subtle left-sided [address] elevation in V2 through 3. Concern for potential dynamic EKG changes. Plan to check troponin. Consider acute congestive heart failure given trace edema and dyspnea on exertion. I will check BNP and chest x-ray. Significant difficulty obtaining IV access. Multiple nurses attempted. I attempted with ultrasound and was unsuccessful bilateral upper arms. Nursing was able to obtain superficial IV right upper anterior chest/shoulder. 1815 --chest x-ray was interpreted by radiology:FINDINGS: Lungs: No airspace consolidation. Pleural spaces: No significant pleural effusion. No pneumothorax. Heart/Mediastinum: Benign-appearing calcified mediastinal lymph nodes similar to prior. No significant cardiomegaly for position and projection. Vasculature: Similar caliber of the ascending aorta, suggesting aneurysm and or dissection. Could be worked up with CTA. Bones/joints: No acute fracture. IMPRESSION: 1. No acute cardiopulmonary pathology. 2. Chronic findings as described. Labs reviewed and BNP is normal. Troponin normal. Given diagnostic findings thus far I am concerned about the potential for aortic dissection or pulmonary embolism. Plan to obtain CTA of the chest. Will obtain central venous access for CTA. Patient provided informed consent to proceed with femoral central line. 1923 -- Central line placed without complication. 2014 --CTA of the chest abdomen pelvis was interpreted by radiology: IMPRESSION: 1. No acute findings. 2. Stable moderate cardiomegaly. IMPRESSION: 1. No acute findings. 2. Right common femoral vein catheter, satisfactory position. 3. Incidental findings as described. Plan for admission for rule out ACS trend blood pressure control. Delta trop pending. 832 --I spoke with Dr. Otero and discussed ED presentation and course, he will admit the patient and recommends bridging orders be placed to floor on telemetry pending delta troponin. He recommends giving nighttime dose of labetalol as well as lisinopril at this time. Lab Data Lab results reviewed: Yes I reviewed the patient's lab results. Labs: Laboratory Tests Range/Units 08/28/21 08/28/21 08/28/21 17:04 17:09 17:10 WBC (4.4-10.8) 10^3/uL 10.04 RBC (3.93-5.22) 10^6/uL 4.45 Hgb (11.2-15.7) g/dL 13.0 Hct (36.0-46.0) % 40.8 MCV (80-95) fL 91.7 MCH (27.0-33.0) pg 29.2 MCHC (32.0-36.0) % 31.9 L RDW (11.7-14.6) % 13.2 Plt Count (130-400) 10^3/uL 221 MPV (8.0-11.0) fL 9.8 Immature Gran % 0.5 Neutrophils % 72.4 Lymphocytes % 18.3 Monocytes % 6.4 Eosinophils % 1.6 Basophils % 0.8 Nucleated RBC % % 0 Absolute Neutrophils (1.2-6.7) 10^3/uL 7.27 H Absolute Lymphocytes (1.2-3.4) 10^3/uL 1.84 Absolute Monocytes (0.1-0.8) 10^3/uL 0.64 Absolute Eosinophils (0.0-0.7) 10^3/uL 0.16 Absolute Basophils (0.0-0.2) 10^3/uL 0.08 Sodium (136-145) mmol/L 143 Potassium (3.5-5.1) mmol/L 3.8 Chloride (98-107) mmol/L 106 Carbon Dioxide (21.0-32.0) mmol/L 27.9 Anion Gap (3-11) mmol/L 9.1 BUN (7-18) mg/dL 19 H Creatinine (0.55-1.02) mg/dL 0.7 Estimated GFR/1.73 m2 (mL/min/1.73m2) >= 60.00 Glucose (74-106) mg/dL 148 H Calcium (8.5-10.1) mg/dL 8.9 Magnesium (1.8-2.4) mg/dL 2.2 Total Bilirubin (0.2-1.0) mg/dL 0.5 AST (15-37) U/L 21 ALT (14-59) U/L 27 Alkaline Phosphatase (46-116) U/L 110 Troponin I (<0.06) ng/mL < 0.05 NT-Pro-B Natriuret Pep (<300) pg/mL 263 Total Protein (6.4-8.2) g/dL 7.1 Albumin (3.4-5.0) g/dL 3.8 <Malachi Srinivasan MD - Last Filed: 08/28/21 21:36> Patient signed out to me pending repeat troponin. If remained flat was to be admitted to [facility] for further evaluation of chest pain and shortness of breath. Patient delta troponin is flat. Did speak with hospitalist and patient accepted for admission. Lab Data Lab results reviewed: Yes I reviewed the patient's lab results. HPI <Jovanni Haley MD - Last Filed: 09/07/21 17:28> General Mode of arrival: ambulatory. Date/Time Provider Initiated Documentation: 08/28/21 15:38. Limitations to Documentation: no limitations. Information obtained by: patient. HPI Narrative: 76-year-old female with multiple medical problems including history of CVA, diabetes, hyperlipidemia, COPD, first-degree AV block, GERD, hypertension, presents with chief complaint of chest pain. Patient notes intermittent chest pain over the past few weeks. Pain is been progressive, worse recently. Pain is worse with exertion and she has associated shortness of breath with exertion. Patient sent here from primary care physician. Patient also with labile blood pressures. Related Data Home Medications Medication Instructions Recorded Confirmed cyanocobalamin (vitamin B-12) 500 500 mcg PO DAILY 07/11/18 08/28/21 mcg tablet lisinopril 20 mg tablet 20 mg PO BID tab 07/11/18 08/28/21 multivitamin 1 tab PO DAILY 07/11/18 08/28/21 albuterol sulfate [Ventolin HFA] 2 puff INHALATION Q6H PRN 06/18/19 08/28/21 ascorbic acid (vitamin C) [Vitamin 500 mg PO BID #0 tab 03/21/20 08/28/21 C] Co Q-10 300 mg PO DAILY 07/23/20 08/28/21 acetaminophen [Acetaminophen Extra 500 mg PO Q6H PRN 07/23/20 08/28/21 Strength] amlodipine 10 mg PO DAILY 07/23/20 08/28/21 cholecalciferol (vitamin D3) 50 mcg PO DAILY 07/23/20 08/28/21 [Vitamin D3] gabapentin 300 mg PO TID 07/23/20 08/28/21 rosuvastatin 10 mg PO DAILY 07/23/20 08/28/21 famotidine 40 mg PO DAILY #30 tab 07/25/20 08/28/21 labetalol 200 mg tablet 100 mg PO BID tab 09/10/20 08/28/21 Levemir FlexTouch U-100 Insuln 22 - 24 unit SUBCUT BID 04/15/21 08/28/21 clopidogrel 75 mg tablet 75 mg PO DAILY #90 tab 08/28/21 alum-mag hydroxide-simeth 30 ml PO Q2H PRN PRN #3000 ml 08/29/21 simethicone [Gas-X Extra Strength] 125 mg PO BID-QID PRN #100 cap 08/29/21 Previous Rx's Medication Instructions Recorded ascorbic acid (vitamin C) [Vitamin 500 mg PO BID #0 tab 03/21/20 C] famotidine 40 mg PO DAILY #30 tab 07/25/20 clopidogrel 75 mg tablet 75 mg PO DAILY #90 tab 08/28/21 alum-mag hydroxide-simeth 30 ml PO Q2H PRN PRN #3000 ml 08/29/21 simethicone [Gas-X Extra Strength] 125 mg PO BID-QID PRN #100 cap 08/29/21 Allergies Allergy/AdvReac Type Severity Reaction Status Date / Time aspirin Allergy Severe GI Bleed Verified 08/28/21 15:31 ibuprofen [From Motrin] Allergy Severe GI Bleed Verified 08/28/21 15:31 Tetracyclines Allergy Severe Makes my Verified 08/28/21 15:31 skin peel and throat close up buspirone Allergy Unknown Verified 08/28/21 15:31 codeine Allergy Unknown Verified 08/28/21 15:31 pentazocine [From Talwin] Allergy Unknown Verified 08/28/21 15:31 sulfamethoxazole Allergy Unknown Verified 08/28/21 15:31 [From Bactrim] trimethoprim [From Bactrim] Allergy Unknown Verified 08/28/21 15:31 ciprofloxacin [From Cipro] AdvReac Severe made my Verified 08/28/21 15:31 stomach bleed duloxetine [From Cymbalta] AdvReac Severe made me Verified 08/28/21 15:31 sick and suicidal prednisone AdvReac Severe Raises BP Verified 08/28/21 15:31 and blood sugar per Pt tramadol AdvReac Severe major GI Verified 08/28/21 15:31 upset oxycodone [From Percocet] AdvReac Unknown Verified 08/05/21 11:07 propoxyphene AdvReac Unknown Verified 08/28/21 15:31 [From Darvocet-N] General Stated Complaint: Chest Pain RADHA: 2 Review of Systems <Jovanni Haley MD - Last Filed: 09/07/21 17:28> All systems reviewed & are unremarkable except as noted in HPI and below Constitutional Constitutional: Denies fever(s) Cardiovascular Cardiovascular: Reports chest pain and Reports dyspnea Respiratory Respiratory: Reports dyspnea PFSH <Jovanni Haley MD - Last Filed: 09/07/21 17:28> Active Problem List Dyspnea on exertion (Acute) Atypical chest pain (Acute) Chest pain (Acute) Shortness of breath (Acute) Painful orthopaedic hardware (Acute) CVA (cerebral vascular accident) (Chronic) Diabetes mellitus (Chronic) COPD without exacerbation (Acute) Neuropathy (Acute) DVT prophylaxis (Acute) Discharge planning issues (Acute) Fever (Acute) Vulvitis (Acute) AV block, 1st degree (Acute) Mixed hyperlipidemia (Acute) Sleep apnea (Acute) GERD (gastroesophageal reflux disease) (Chronic) Lumbago with sciatica (Chronic) Lipoma of extremity (Acute) Arthritis of knee, left (Acute) S/P skin biopsy (Acute) Bimalleolar fracture of right ankle (Acute 03/16/20) Periprosthetic fracture around internal prosthetic right knee joint, initial encounter (Acute 03/16/20) Status post total knee replacement, right (Acute 02/05/19) Hypertension (Chronic) Medical History Arthritis of knee, right GI bleed Gout Hiatal hernia History of depression meds in past presently on no rx for depression History of hemorrhagic stroke with residual hemiparesis (R) Hyperlipidemia TIM (obstructive sleep apnea) has used cpap in past presently not using Osteoarthritis Surgical History History of appendectomy History of arthroscopic knee surgery History of colonoscopy History of hysterectomy Family History Father Heart disease Social History Smoking/Tobacco Use Status: Never Smoking risk assessment performed?: Yes Alcohol Intake: never Drug use: Never Substance use type: does not use Household members: significant other Number of Children: 0 current occupation: retired. Pets and animals: No Current gender identity: female What type of physical activity do you participate in: none Seatbelt use: always Do you feel safe at home: Yes Do you feel safe in your relationship?: Yes Additional Social history: Female Reproductive History Menstrual Menopause type: surgical Exam <Jovanni Haley MD - Last Filed: 09/07/21 17:28> Const General: cooperative and no acute distress [facility] Head: normocephalic and atraumatic Mouth: moist mucous membranes Eyes Conjunctivae: normal conjunctivae Sclera: normal sclerae Neck Neck: trachea midline and supple Resp Auscultation: clear to auscultation bilaterally, no rales, no rhonchi and no wheezes Other: Patient notes difficulty breathing even just trying to move on the stretcher Cardio Rate: regular rate and not tachycardic Rhythm: regular rhythm GI Palpation: soft, not firm, no guarding, no masses, not rigid and nontender Skin General skin exam: no rashes or lesions noted Neuro General: patient alert, patient awake, patient oriented x3 and tone normal Extrem General: no calf tenderness and edema Laterality: bilateral (trace) Psych Appearance: grossly normal Mental Status: mental status grossly normal Speech and Movement: speech and movement normal Course <Jovanni Haley MD - Last Filed: 09/07/21 17:28> Vital Signs Vital signs: Vital Signs Temperature 36.6 C 08/28/21 15:25 Pulse 79 08/28/21 15:25 Respiratory Rate 16 08/28/21 15:25 Blood Pressure 175/83 H 08/28/21 15:25 Pulse Oximetry 97 08/28/21 15:25 Temperature 36.6 C 08/28/21 15:25 Temperature Source Skin 08/28/21 15:25 Pulse 79 08/28/21 15:25 Pulse 83 08/28/21 16:40 Respiratory Rate 19 08/28/21 16:40 Respiratory Effort Non-Labored 08/28/21 15:37 Respiratory Depth Normal 08/28/21 15:37 Respiratory Pattern Normal 08/28/21 15:37 Blood Pressure 175/83 H 08/28/21 15:25 Blood Pressure Position Supine 08/28/21 15:25 Pulse Oximetry 97 08/28/21 16:40 Oxygen Delivery Method Room Air 08/28/21 15:25 Oxygen Flow Rate 0 08/28/21 15:25 Pain Level 5 08/28/21 15:25 Lab/Test Results Lab/Test Results: Laboratory Tests Range/Units 08/28/21 17:04 WBC (4.4-10.8) 10^3/uL 10.04 RBC (3.93-5.22) 10^6/uL 4.45 Hgb (11.2-15.7) g/dL 13.0 Hct (36.0-46.0) % 40.8 MCV (80-95) fL 91.7 MCH (27.0-33.0) pg 29.2 MCHC (32.0-36.0) % 31.9 L RDW (11.7-14.6) % 13.2 Plt Count (130-400) 10^3/uL 221 MPV (8.0-11.0) fL 9.8 Immature Gran % 0.5 Neutrophils % 72.4 Lymphocytes % 18.3 Monocytes % 6.4 Eosinophils % 1.6 Basophils % 0.8 Nucleated RBC % % 0 Absolute Neutrophils (1.2-6.7) 10^3/uL 7.27 H Absolute Lymphocytes (1.2-3.4) 10^3/uL 1.84 Absolute Monocytes (0.1-0.8) 10^3/uL 0.64 Absolute Eosinophils (0.0-0.7) 10^3/uL 0.16 Absolute Basophils (0.0-0.2) 10^3/uL 0.08 Procedures <Jovanni Haley MD - Last Filed: 09/07/21 17:28> Central Line Placement Right Femoral: Time Out Performed: Yes Patient Placed on Monitor/Pulse Ox: Yes MD Prep: mask, gown and gloves Central Line Prep: Chlorhexidine scrub Local Anesthetic: Lidocaine 1% Amount of anesthesia used (mL): 5 Ultrasound Used for Placement: Yes Central Line Lumen Inserted: triple Post Procedure: good blood return, all ports aspirated, flushed, capped and sutured in place with 3-0 nylon Patient Tolerated Procedure: well Complications: none Sign Out <Jovanni Haley MD - Last Filed: 09/07/21 17:28> Sign Out Data: Sign Out Comment: Follow-up delta trop. plan for admission. Last updated by Jovanni Haley MD at 08/28/21 20:22
[2021-08-28 17:34] LABS: ALT 27 U/L (14-59); AST 21 U/L (15-37); Albumin 3.8 g/dL (3.4-5.0); Alkaline Phosphatase 110 U/L (46-116); Anion Gap 9.1 mmol/L (3-11); BUN 19 mg/dL (7-18); Bilirubin, Total 0.5 mg/dL (0.2-1.0); CO2 27.9 mmol/L (21.0-32.0); CREATININE 0.7 mg/dL (0.55-1.02); Calcium 8.9 mg/dL (8.5-10.1); Chloride 106 mmol/L (98-107); Glucose 148 mg/dL (74-106); Magnesium 2.2 mg/dL (1.8-2.4); Potassium 3.8 mmol/L (3.5-5.1); Sodium 143 mmol/L (136-145); Total Protein 7.1 g/dL (6.4-8.2)
[2021-08-28 17:36] LABS: Troponin I < 0.05 ng/mL (<0.06)
[2021-08-28 17:43] LABS: NT-proBNP 263 pg/mL (<300)
--- NOTE | 2021-08-28 17:56 | DI.VRAD_ITS ---
PROCEDURE INFORMATION: Exam: XR Chest Exam date and time: 08/28/2021 17:05 Age: 76 years old Clinical indication: Other: Chest pain TECHNIQUE: Imaging protocol: XR of the chest. Views: 1 view. COMPARISON: CR XR PORTABLE CHEST AP 07/23/2020 18:41 FINDINGS: Lungs: No airspace consolidation. Pleural spaces: No significant pleural effusion. No pneumothorax. Heart/Mediastinum: Benign-appearing calcified mediastinal lymph nodes similar to prior. No significant cardiomegaly for position and projection. Vasculature: Similar caliber of the ascending aorta, suggesting aneurysm and or dissection. Could be worked up with CTA. Bones/joints: No acute fracture. IMPRESSION: 1. No acute cardiopulmonary pathology. 2. Chronic findings as described. Dictated and Authenticated by: Zohreh Randle MD. Ordering:ENIO Baig MD
--- NOTE | 2021-08-28 19:15 | DI.CT_ITS ---
Exam(s) CT THORAX ABD/PEL CTA EXAM: CT THORAX ABD/PEL CTA CLINICAL HISTORY: chest pain, hypertensive, SOB, abnl cxr. TECHNIQUE: Imaging Protocol: Axial computed tomography images with coronal and sagittal reformatted images were created and reviewed CONTRAST MATERIAL: Intravenous: Omnipaque 350 Contrast volume:100 ml Oral: None COMPARISON: CT CT BRAIN NECK CTA from 07/23/2020 CR,XR XR PORTABLE CHEST AP from 08/28/2021 CR,XR XR PORTABLE CHEST AP from 08/28/2021 FINDINGS: CHEST: LUNGS: There are few small nodules in the right lung in the right upper and right lower lobes. There is sparing of the right middle lobe. Largest of these nodules measures 6 millimeters. Tiny benign calcified granuloma lateral left lung noted. No pleural effusions on either side. No significant fo sarina findings in the trachea and mainstem bronchi. MEDIASTINUM: There is no hilar nor mediastinal adenopathy. Calcified lymph node in the aortopulmonic window noted, this measuring 2 x 1 cm, as seen on the chest x-ray. There are no calcified hilar lym ph nodes. No calcified subcarinal lymph nodes CARDIAC: Mild cardiomegaly. Coronary artery calcification noted-moderate. No pericardial effusion AORTA: The left vertebral artery in its as an independent vessel off of the aortic arch.Diameter of t he ascending thoracic aorta is upper normal with maximum external diameter of the 3.6 cm. No dissect ion. The diameter of the aortic arch and descending thoracic aorta are upper normal. No dissection. ABDOMEN: ABDOMINAL AORTA: There is no evidence of abdominal aortic aneurysm nor dissection.There is no aneurysmal dilatation of the common iliac arteries.The celiac and superior mesenteric arteries are patent.No significant sten osis at their origins and the inferior mesenteric artery is patent. There is no evidence of aneurysm al dilatation of the distal abdominal aorta nor of the iliac arteries and no significant stenosis in the iliac arteries. Also no evidence of aneurysm nor significant stenosis in the common femoral mauricio magaly. There is no ascites. LIVER: There are no focal hepatic lesions nor dilatation of intrahepatic ducts. GALLBLADDER/BILIARY: No obvious gallbladder pathology. CBD is not dilated. PANCREAS: No evidence of pancreatic mass nor dilatation of the pancreatic duct. SPLEEN: Spleen size is normal. There are 2 sub cm hypodensities in the spleen, measuring 9 and 6 mil limeters. Probably hemangiomas. Splenic and portal veins are patent. ADRENALS: There are no significant adrenal masses. KIDNEYS: There are few parapelvic cysts in left kidney. Also in the right kidney. No calculi nor hy dronephrosis. No solid renal masses. LYMPH NODES: There is no retroperitoneal nor para-aortic adenopathy. No obvious mesenteric masses. ABDOMINAL WALL: No evidence of significant anterior abdominal wall hernia. GI: There is no evidence of bowel obstruction, free air, nor abscess. PELVIS: LYMPH NODES: There is no intrapelvic nor inguinal adenopathy. GI: No evidence of appendicitis.There is sigmoid diverticuli but no evidence of obvious acute diverti culitis. URINARY BLADDER: No calculi nor masses evident REPRODUCTIVE: Uterus is surgically absent. No abnormal adnexal masses. No free fluid OSSEOUS: No significant osseous lesions. There is an intraosseous benign hemangioma in the anterior half of T8 vertebral body. IMPRESSION: 1. No evidence of thoracic no abdominal aneurysm. No dissection no significant stenosis in the aorto iliac segments nor aneurysmal dilatation of the iliac arteries. 2. There are few small noncalcified nodular densities in the right lung, measuring up to 6 millimeter diameter. Recommend repeat CT scan in 3 months. 3. There is a 2 x 1 cm calcified lymph node in the aortopulmonic window in the chest. However, there is no significant lymphadenopathy evident in the chest, abdomen, and pelvis. 4. Previous hysterectomy. No abnormal adnexal masses. No free fluid. T8 vertebral body benign hemangioma noted. Study 1st read by [facility]. RADIATION DOSE DELIVERED: 1,231.4mGy.cm Total DLP DATA REPOSITORY: All CT scans at this facility are submitted to the National Radiology Data Registry (NRDR) Dose Index Registry (DIR) with the [employer] (ACR). RADIATION OPTIMIZATION: All CT scans at this facility use at least one of these dose optimization te chniques: automated exposure control; mA and/or kV adjustment per patient size (includes targeted exa ms where dose is matched to clinical indication); or iterative reconstruction.
--- NOTE | 2021-08-28 19:37 | NUR.NOTE ---
Nursing Note: RN called to notify radiology staff that patient has a femoral central line placed on right side and to use brown port per Dr. Haley. Radiology staff expressed they would have to call sewing room supervisor to verify that they can use it. RN spoke with Dr. Haley who expressed that line is capable of infusion of CT contract per packaging; staff again expressed they had to contact their sewing room supervisor. Dr. Haley notified.
[2021-08-28] MEDS: Omnipaque 350 MG/ML 100 ML BTL IJ (19:54)
--- NOTE | 2021-08-28 20:11 | DI.VRAD_ITS ---
PROCEDURE INFORMATION: Exam: CTA Chest With Contrast Exam date and time: 08/28/2021 19:21 Age: 76 years old Clinical indication: Other: Chest pain, hypertensive, SOB, abnl cxr TECHNIQUE: Imaging protocol: Computed tomographic angiography of the chest with contrast. 3D rendering (Not supervised by radiologist): MIP and/or 3D reconstructed images were created by the technologist. COMPARISON: CT CHEST PE CTA 06/18/2019 15:14 FINDINGS: Pulmonary arteries: No pulmonary emboli. Aorta: Tortuous ascending aorta with a diameter of 35 mm stable since prior. No dissection. Tortuous descending aorta which is normal in caliber. Lungs: Mild motion artifact in the lungs. There is no pneumonia. A few scattered statistically benign pulmonary nodules. Follow-up as per institutional protocol. Pleural spaces: No pneumothorax. No pleural effusion. Heart: Stable moderate cardiomegaly. Trace pericardial fluid appears likely physiologic. Mediastinal space: Benign mediastinal calcifications. No significant adenopathy. Lymph nodes: See Mediastinal space finding. Bones/joints: No acute fracture. Soft tissues: No suspicious lesions. IMPRESSION: 1. No acute findings. 2. Stable moderate cardiomegaly. PROCEDURE INFORMATION: Exam: CTA Abdomen and Pelvis With Contrast Exam date and time: 08/28/2021 19:21 Age: 76 years old Clinical indication: Other: Chest pain, hypertensive, SOB, abnl cxr TECHNIQUE: Imaging protocol: Computed tomographic angiography of the abdomen and pelvis with contrast material. 3D rendering (Not supervised by radiologist): MIP and/or 3D reconstructed images were created by the technologist. COMPARISON: CT CHEST PE CTA 06/18/2019 15:14 FINDINGS: Tubes, catheters and devices: Right common femoral vein catheter, satisfactory position. Mediastinal space: Hiatal hernia predominantly containing fat small in volume. Aorta: No aortic aneurysm. No aortic dissection. Celiac trunk and mesenteric arteries: No occlusion or significant stenosis. Renal arteries: No occlusion or significant stenosis. Right iliac arteries: No occlusion or significant stenosis. Left iliac arteries: No occlusion or significant stenosis. Liver: No mass. Gallbladder and bile ducts: No calcified stones. No ductal dilation. Pancreas: No mass. No ductal dilation. Spleen: Spleen is upper limits of normal in size. No hypervascular lesions. Adrenal glands: No mass. Kidneys and ureters: No renal masses or hydronephrosis bilaterally. Benign-appearing parapelvic cysts left kidney. Stomach and bowel: Colonic diverticulosis without diverticulitis. No focal pathology in the small bowel. Appendix: No evidence of appendicitis. Intraperitoneal space: No free air. No significant fluid collection. Lymph nodes: No enlarged lymph nodes. Urinary bladder: The urinary bladder is distended. No urinary bladder wall thickening. Reproductive: Hysterectomy. Bones/joints: Degenerative changes in the spine. No acute fracture or subluxation. Soft tissues: No suspicious lesions. IMPRESSION: 1. No acute findings. 2. Right common femoral vein catheter, satisfactory position. 3. Incidental findings as described. Dictated and Authenticated by: Zohreh Randle MD. Ordering:ENIO Baig MD
--- NOTE | 2021-08-28 20:15 | NUR.NOTE ---
Nursing Note: Right femoral central line dressing saturated after CT scan. Dr. Haley notified and ordered to change dressing. Dressing changed using sterile technique, no active bleeding noted at site during dressing change and not signs of hematoma formation seen.
--- NOTE | 2021-08-28 20:29 | NUR.NOTE ---
Nursing Note: 2nd troponin drawn, labeled and taken to lab.
[2021-08-28] MEDS: Labetalol 100 MG TAB 200 MG PO (21:01)
[2021-08-28] MEDS: Lisinopril 20 MG TAB PO (21:01)
[2021-08-28 21:03] LABS: Troponin I < 0.05 ng/mL (<0.06)
--- NOTE | 2021-08-28 22:45 | W.PM.HP.N ---
Date of service: 08/28/21 Time of Service: 22:45 Assessment and Plan Assessment and plan (1) Atypical chest pain: Start date: 08/28/21 Status: Acute Assessment and plan: This is a 76-year-old lady presenting with exertional chest symptoms which are atypical. She has had a negative stress test within the last 2 years but does deserve trending troponins with observation. He also appears to have hyperventilation with paresthesias over both lower extremities and upper extremities with these exertional symptoms. Patient is slightly anxious. She does have previous atherosclerotic vessel disease processes with her cerebral circulation. She also has risk factor for advancing CAD. Ideally she should have repeat cardiology consultation stress test but this could be done as an outpatient if she stabilizes. Maximize treatment of hypertension while inpatient and trend troponin with increase in activity as tolerated. 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 (2) Dyspnea on exertion: Start date: 08/28/21 Status: Acute Assessment and plan: Patient does not have a PE by CTA but does have respiratory disease with respiratory treatment continue during her hospital stay. (3) Diabetes mellitus: Status: Chronic Assessment and plan: Glucometer checks with short acting insulin coverage while in the hospital. This is a risk factor for advancing CAD. Patient does have elevated hemoglobin A1c. 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 She had no symptoms at rest. She was seen by her PCP the day of admission and was sent to the ED for evaluation because of abnormal EKG changes which were nonspecific. In the ED she had 2 normal troponins with nonspecific EKG changes unchanged. The patient does have a history of a stress test within the last 2 years which was unrevealing. She was comfortable at rest given her history and appears to have no other concerns. She denied any headache, focal neurological complaints or GI symptoms associated with her chest discomfort other than some belching at times. She had no nausea. In the ED the patient did have IV access problems and central line with femoral catheter was placed. This was done for studies and IV access during observation. Review of Systems Narrative: 13 point review of systems otherwise unrevealing or stable. [facility] Active Problem List Chest pain (Acute) Shortness of breath (Acute) Painful orthopaedic hardware (Acute) CVA (cerebral vascular accident) (Chronic) Diabetes mellitus (Chronic) COPD without exacerbation (Acute) Neuropathy (Acute) DVT prophylaxis (Acute) Discharge planning issues (Acute) Fever (Acute) Vulvitis (Acute) AV block, 1st degree (Acute) Mixed hyperlipidemia (Acute) Sleep apnea (Acute) GERD (gastroesophageal reflux disease) (Chronic) Lumbago with sciatica (Chronic) Lipoma of extremity (Acute) Arthritis of knee, left (Acute) S/P skin biopsy (Acute) Bimalleolar fracture of right ankle (Acute 03/16/20) Periprosthetic fracture around internal prosthetic right knee joint, initial encounter (Acute 03/16/20) Status post total knee replacement, right (Acute 02/05/19) Hypertension (Chronic) Medical History Arthritis of knee, right GI bleed Gout Hiatal hernia History of depression meds in past presently on no rx for depression History of hemorrhagic stroke with residual hemiparesis (R) Hyperlipidemia TIM (obstructive sleep apnea) has used cpap in past presently not using Osteoarthritis Surgical History History of appendectomy History of arthroscopic knee surgery History of colonoscopy History of hysterectomy Family History Father Heart disease Social History Smoking/Tobacco Use Status: Never Smoking risk assessment performed?: Yes Alcohol Intake: never Drug use: Never Substance use type: does not use Household members: significant other Number of Children: 0 current occupation: retired. Pets and animals: No Current gender identity: female What type of physical activity do you participate in: none Seatbelt use: always Do you feel safe at home: Yes Do you feel safe in your relationship?: Yes Additional Social history: Female Reproductive History Menstrual Menopause type: surgical Meds Allergies and Home Medications Allergies Allergy/AdvReac Type Severity Reaction Status Date / Time aspirin Allergy Severe GI Bleed Verified 08/28/21 15:31 ibuprofen [From Motrin] Allergy Severe GI Bleed Verified 08/28/21 15:31 Tetracyclines Allergy Severe Makes my Verified 08/28/21 15:31 skin peel and throat close up buspirone Allergy Unknown Verified 08/28/21 15:31 codeine Allergy Unknown Verified 08/28/21 15:31 pentazocine [From Talwin] Allergy Unknown Verified 08/28/21 15:31 sulfamethoxazole Allergy Unknown Verified 08/28/21 15:31 [From Bactrim] trimethoprim [From Bactrim] Allergy Unknown Verified 08/28/21 15:31 ciprofloxacin [From Cipro] AdvReac Severe made my Verified 08/28/21 15:31 stomach bleed duloxetine [From Cymbalta] AdvReac Severe made me Verified 08/28/21 15:31 sick and suicidal prednisone AdvReac Severe Raises BP Verified 08/28/21 15:31 and blood sugar per Pt tramadol AdvReac Severe major GI Verified 08/28/21 15:31 upset oxycodone [From Percocet] AdvReac Unknown Verified 08/05/21 11:07 propoxyphene AdvReac Unknown Verified 08/28/21 15:31 [From Darvocet-N] Home Medications Medication Instructions Recorded Confirmed Type cyanocobalamin (vitamin B-12) 500 500 mcg PO DAILY 07/11/18 08/28/21 History mcg tablet lisinopril 20 mg tablet 20 mg PO BID tab 07/11/18 08/28/21 History multivitamin 1 tab PO DAILY 07/11/18 08/28/21 History albuterol sulfate [Ventolin HFA] 2 puff INHALATION Q6H PRN 06/18/19 08/28/21 History ascorbic acid (vitamin C) [Vitamin 500 mg PO BID #0 tab 03/21/20 08/28/21 Rx C] Co Q-10 300 mg PO DAILY 07/23/20 08/28/21 History acetaminophen [Acetaminophen Extra 500 mg PO Q6H PRN 07/23/20 08/28/21 History Strength] amlodipine 10 mg PO DAILY 07/23/20 08/28/21 History cholecalciferol (vitamin D3) 50 mcg PO DAILY 07/23/20 08/28/21 History [Vitamin D3] gabapentin 300 mg PO TID 07/23/20 08/28/21 History rosuvastatin 10 mg PO DAILY 07/23/20 08/28/21 History famotidine 40 mg PO DAILY #30 tab 07/25/20 08/28/21 Rx labetalol 200 mg tablet 100 mg PO BID tab 09/10/20 08/28/21 History Levemir FlexTouch U-100 Insuln 22 - 24 unit SUBCUT BID 04/15/21 08/28/21 History clopidogrel 75 mg tablet 75 mg PO DAILY #90 tab 08/28/21 Rx Exam Narrative Exam Narrative: General: Patient appears appropriate for age, moderately obese, in no acute distress. She is alert and oriented x3. HEENT: Normocephalic, eyes with pupils equal and reactive to light symmetrically, extraocular movement active sclera anicteric. Oropharynx with moist mucosa and fair dentition. Neck: Supple without JVD. Lungs: Clear to auscultation and percussion. Back: Kyphotic without CVA tenderness. Heart: Regular rate and rhythm with no appreciable murmur or gallop. Breast: Exam deferred. Abdomen: Obese contour, soft and nontender to palpation with no palpable hepatosplenomegaly. Bowel sounds positive in all quadrants. Genitalia/rectal: Exam deferred. Extremities: Nonpitting edema with chronic skin changes over both legs with loss of hair but no hyperpigmentation or atrophy. Peripheral pulses intact. No cyanosis or clubbing. Joints have osteoarthritic changes with decreased range of motion. Skin: Pale, warm and dry. Neuro: Cranial nerves II through XII grossly intact, no focal motor deficits. No tremor. Psych: Slightly anxious with pressured speech, normal mood. No abnormal thought processes. Remote and recent memory intact. Results Imaging Imaging Studies: Exam: CTA Abdomen and Pelvis With Contrast Exam date and time: 08/28/2021 19:21 Age: 76 years old Clinical indication: Other: Chest pain, hypertensive, SOB, abnl cxr TECHNIQUE: Imaging protocol: Computed tomographic angiography of the abdomen and pelvis with contrast material. 3D rendering (Not supervised by radiologist): MIP and/or 3D reconstructed images were created by the technologist. COMPARISON: CT CHEST PE CTA 06/18/2019 15:14 FINDINGS: Tubes, catheters and devices: Right common femoral vein catheter, satisfactory position. Mediastinal space: Hiatal hernia predominantly containing fat small in volume. Aorta: No aortic aneurysm. No aortic dissection. Celiac trunk and mesenteric arteries: No occlusion or significant stenosis. Renal arteries: No occlusion or significant stenosis. Right iliac arteries: No occlusion or significant stenosis. Left iliac arteries: No occlusion or significant stenosis. Liver: No mass. Gallbladder and bile ducts: No calcified stones. No ductal dilation. Pancreas: No mass. No ductal dilation. Spleen: Spleen is upper limits of normal in size. No hypervascular lesions. Adrenal glands: No mass. Kidneys and ureters: No renal masses or hydronephrosis bilaterally. Benign-appearing parapelvic cysts left kidney. Stomach and bowel: Colonic diverticulosis without diverticulitis. No focal pathology in the small bowel. Appendix: No evidence of appendicitis. Intraperitoneal space: No free air. No significant fluid collection. Lymph nodes: No enlarged lymph nodes. Urinary bladder: The urinary bladder is distended. No urinary bladder wall thickening. Reproductive: Hysterectomy. Bones/joints: Degenerative changes in the spine. No acute fracture or subluxation. Soft tissues: No suspicious lesions. IMPRESSION: 1. No acute findings. 2. Right common femoral vein catheter, satisfactory position. 3. Incidental findings as described. Exam: XR Chest Exam date and time: 08/28/2021 17:05 Age: 76 years old Clinical indication: Other: Chest pain TECHNIQUE: Imaging protocol: XR of the chest. Views: 1 view. COMPARISON: CR XR PORTABLE CHEST AP 07/23/2020 18:41 FINDINGS: Lungs: No airspace consolidation. Pleural spaces: No significant pleural effusion. No pneumothorax. Heart/Mediastinum: Benign-appearing calcified mediastinal lymph nodes similar to prior. No significant cardiomegaly for position and projection. Vasculature: Similar caliber of the ascending aorta, suggesting aneurysm and or dissection. Could be worked up with CTA. Bones/joints: No acute fracture. IMPRESSION: 1. No acute cardiopulmonary pathology. 2. Chronic findings as described. Dictated and Authenticated by: Zohreh Randle MD. Labs Result diagrams: 08/29/21 06:43 08/29/21 06:43 Labs: Laboratory Results - last 24 hr 08/28/21 08/28/21 08/28/21 17:04 17:09 17:10 WBC 10.04 RBC 4.45 Hgb 13.0 Hct 40.8 MCV 91.7 MCH 29.2 MCHC 31.9 L RDW 13.2 Plt Count 221 MPV 9.8 Immature Gran % 0.5 Neutrophils % 72.4 Lymphocytes % 18.3 Monocytes % 6.4 Eosinophils % 1.6 Basophils % 0.8 Nucleated RBC % 0 Absolute Neutrophils 7.27 H Absolute Lymphocytes 1.84 Absolute Monocytes 0.64 Absolute Eosinophils 0.16 Absolute Basophils 0.08 Sodium 143 Potassium 3.8 Chloride 106 Carbon Dioxide 27.9 Anion Gap 9.1 BUN 19 H Creatinine 0.7 Estimated GFR/1.73 m2 >= 60.00 Glucose 148 H Calcium 8.9 Magnesium 2.2 Total Bilirubin 0.5 AST 21 ALT 27 Alkaline Phosphatase 110 Troponin I < 0.05 NT-Pro-B Natriuret Pep 263 Total Protein 7.1 Albumin 3.8 08/28/21 20:20 WBC RBC Hgb Hct MCV MCH MCHC RDW Plt Count MPV Immature Gran % Neutrophils % Lymphocytes % Monocytes % Eosinophils % Basophils % Nucleated RBC % Absolute Neutrophils Absolute Lymphocytes Absolute Monocytes Absolute Eosinophils Absolute Basophils Sodium Potassium Chloride Carbon Dioxide Anion Gap BUN Creatinine Estimated GFR/1.73 m2 Glucose Calcium Magnesium Total Bilirubin AST ALT Alkaline Phosphatase Troponin I < 0.05 NT-Pro-B Natriuret Pep Total Protein Albumin Last Vital Signs Temp 36.8 C 08/28/21 22:02 Pulse 70 08/28/21 22:02 Resp 19 08/28/21 22:02 BP 156/85 H 08/28/21 22:02 Pulse Ox 95 08/28/21 22:02
[2021-08-28 22:55] LABS: Source Nasal/Nares
[2021-08-28] MEDS: Insulin Aspart 300 UNITS/3 ML PEN SC (23:44)
[2021-08-28] MEDS: Normal Saline Flush 10 ML SYR IVP (23:45)
[2021-08-28 23:51] LABS: COVID-19 PCR Negative (Negative)
[2021-08-29] VITALS (8 sets, daily range): BP systolic 133–168; BP diastolic 76–90; PULSE 63–72; RESP 15–18; TEMP 36.4–37.2; O2SAT 97–98
[2021-08-29] MEDS: Cellulose,Oxidized 4X8 1 PACKET MC (00:27)
[2021-08-29] MEDS: Heparin 5,000 UNITS/ML VIAL 5000 UNITS SC ×2 (05:49→14:33)
[2021-08-29 07:21] LABS: Abs Immature Grans 0.02 10^3/uL (0.0-0.06); Absolute Basophil Count 0.08 10^3/uL (0.0-0.2); Absolute Eosinophil Count 0.17 10^3/uL (0.0-0.7); Absolute Lymphocyte Count 1.65 10^3/uL (1.2-3.4); Absolute Monocyte Count 0.64 10^3/uL (0.1-0.8); Absolute Neutrophil Count 5.26 10^3/uL (1.2-6.7); Eosinophils % 2.2; HCT 38.5 % (36.0-46.0); HGB 12.1 g/dL (11.2-15.7); Immature Grans % 0.3; Lymphocytes % 21.1; MCHC 31.4 % (32.0-36.0); MCV 92.3 fL (80-95); MPV 9.9 fL (8.0-11.0); Monocytes % 8.2; Neutrophils % 67.2; Nucleated RBC 0 %; Platelet Count 207 10^3/uL (130-400); RBC 4.17 10^6/uL (3.93-5.22); RDW 13.2 % (11.7-14.6); WBC 7.82 10^3/uL (4.4-10.8)
[2021-08-29 07:46] LABS: ALT 22 U/L (14-59); AST 18 U/L (15-37); Albumin 3.4 g/dL (3.4-5.0); Alkaline Phosphatase 97 U/L (46-116); Anion Gap 9.4 mmol/L (3-11); BUN 16 mg/dL (7-18); Bilirubin, Total 0.6 mg/dL (0.2-1.0); CO2 26.6 mmol/L (21.0-32.0); CREATININE 0.6 mg/dL (0.55-1.02); Calcium 8.6 mg/dL (8.5-10.1); Chloride 107 mmol/L (98-107); Glucose 135 mg/dL (74-106); Potassium 3.7 mmol/L (3.5-5.1); Sodium 143 mmol/L (136-145); Total Protein 6.3 g/dL (6.4-8.2)
[2021-08-29 07:49] LABS: Troponin I < 0.05 ng/mL (<0.06)
[2021-08-29 07:52] LABS: TSH (W/Ref FT4) 1.64 uIU/mL (0.36-3.74)
[2021-08-29] MEDS: Clopidogrel 75 MG TAB PO (08:31)
[2021-08-29] MEDS: amLODIPine 10 MG TAB PO (08:32)
[2021-08-29] MEDS: Rosuvastatin 10 MG TAB PO (08:32)
[2021-08-29] MEDS: Labetalol 100 MG TAB PO (08:32)
[2021-08-29] MEDS: Famotidine 20 MG TAB 40 MG PO (08:32)
[2021-08-29] MEDS: Gabapentin 300 MG CAP PO ×2 (08:32→14:34)
[2021-08-29] MEDS: Lisinopril 20 MG TAB PO (08:32)
--- NOTE | 2021-08-29 09:00 | RT.EKG_ITS ---
APPROVED REPORT Exam: Resting ECG Reason for Exam: LEFT CHEST PAIN Patient Location: I HR:66 bpm ECG Measurements Heart Rate 66 AXIS WV 253 P 11 QRSd 98 QRS -17 QT 438 T 66 QTc 459 Conclusion Sinus rhythm...normal P axis, V-rate 60- 99 Prolonged WV interval...WV >220, V-rate 50- 90 Low voltage, precordial leads...precordial leads <1.0mV
--- NOTE | 2021-08-29 09:06 | PDOC.CMIN ---
- If Service Date Differs Date of service: 08/29/21 Time of Service: 09:06 Care Management Initial Assess REASON FOR HOSPITALIZATION:: Atypical chest pain, dyspnea with exertion. PAST MEDICAL HISTORY/PAST SURGICAL HISTORY:: Active Problem List: Painful orthopaedic hardware (Acute), CVA (cerebral vascular accident) (Chronic), Diabetes mellitus (Chronic), COPD without exacerbation (Acute), Neuropathy (Acute), DVT prophylaxis (Acute), Discharge planning issues (Acute), Fever (Acute), Vulvitis (Acute), AV block, 1st degree (Acute), Mixed hyperlipidemia (Acute), Sleep apnea (Acute), GERD (gastroesophageal reflux disease) (Chronic), Lumbago with sciatica (Chronic), Lipoma of extremity (Acute), Arthritis of knee, left (Acute), S/P skin biopsy (Acute), Bimalleolar fracture of right ankle (Acute 03/16/20), Periprosthetic fracture around internal prosthetic right knee joint, initial encounter (Acute 03/16/20), Status post total knee replacement, right (Acute 02/05/19), and Hypertension (Chronic). Medical History: Arthritis of knee, right, GI bleed, Gout, Hiatal hernia,. History of depression - meds in past presently on no rx for depression,. History of hemorrhagic stroke with residual hemiparesis - (R), Hyperlipidemia, TIM (obstructive sleep apnea) - has used cpap in past presently not using, and Osteoarthritis. Surgical History: History of appendectomy, History of arthroscopic knee surgery, History of colonoscopy, and History of hysterectomy. PREVIOUS FUNCTIONAL STATUS/SOCIAL/FAMILY SUPPORTS:: Ally lives in [place] with Ramos, her common law of 15 years. [place]. 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 Ally has no children of her own but Ramos has a son who lives locally and is supportive of the couple. Ally enjoys sewing and reading. She is independent at baseline. CURRENT FUNCTIONAL STATUS:: Ally is lying in bed when CM comes to meet with her. Her partner, Ramos, is present in the room. Ally is pleasant and easily engages in conversation. She shares she has been short of breath for a while and says the provider thinks it might be related to acid reflux. ADVANCE DIRECTIVES:: On file; partner Ramos Silva is appointed as Healthcare Agent. Has patient been provided with info about the portal/API?: Yes Did the patient sign up for the portal?: Yes (Previously enrolled) CODE STATUS:: Full Code INSURANCE COVERAGE / FINANCIAL ISSUES:: [employer], Medicare. CURRENT HOME/COMMUNITY SERVICES/EQUIPMENT:: Ally owns a cane and a FWW. She has no home/community services. PRIMARY CARE PHYSICIAN:: MARJAN Frazier ([facility]). POTENTIAL DISCHARGE NEEDS:: Follow up appointment with PCP. PATIENT/FAMILY EDUCATION NEEDS:: Discharge education, limitations and follow up plan of care including Ask Me Three and self management. ANTICIPATED BARRIERS TO DISCHARGE:: No anticipated barriers at this time. TRANSPORTATION:: Via private vehicle with her partner, Ramos. PLAN:: Ally will be discharged home with no services when medically cleared by provider. She will follow up with her PCP and plan of care as directed. Her partner, Ramos, will drive her home via private vehicle when ready. CM will continue to follow.
[2021-08-29] MEDS: nitroGLYcerin 0.4 MG TAB SL (09:24)
[2021-08-29] MEDS: Normal Saline Flush 10 ML SYR IVP (09:26)
[2021-08-29 10:00] LABS: Troponin I < 0.05 ng/mL (<0.06)
[2021-08-29] MEDS: Insulin Aspart 300 UNITS/3 ML PEN SC (12:35)
--- NOTE | 2021-08-29 15:22 | DSE_ITS ---
Date of service: 08/29/21 Time of Service: 15: DS: Diagnosis Discharge Diagnosis (1) Atypical chest pain: Start date: 08/29/21 Start time: 15: Status: Acute Asessment and Plan: Patient states CP relieved with burping. She states she will start to get midsternal CP that radiated down arm then she will belch and CP will go away. Cp this morning and EKG revealed normal SR with no ectopic beats, ST elevation or abnormal waves. Rate of 76. At this time she has no CP. She is agreeable to discharge Will discharge home on 30 day event recorder, outpatient stress test, and echo F/u with PCP, we will call Tuesday to sched appt. Also mylanta and gas x for CP. (2) Dyspnea on exertion: Start date: 08/29/21 Start time: 15: Status: Acute Asessment and Plan: as above (3) Diabetes mellitus: Start date: 08/29/21 Start time: 15: Status: Chronic Asessment and Plan: continue home regimen discussed with dr. holguin Discharge Plan Disposition Patient Disposition: HOME Condition: Improving Discharge Details Reason For Visit: Atypical Chest Pain,Dyspnea with Exertion Admit Date/Time: 08/28/21 21:27 Admit Provider: Abraham Otero Attending Provider: Abraham Otero Primary Care Provider: Ximena Graham [facility] Hospital Course: 76 y.o female admitted to [facility] with CP that starts midsternal and radiates down her left arm relieved with belching. She had an episode this morning with a normal EKG, negative trop. CTA in ED r/o PE. She has no CP at this time. She states on going times one month. Every time this happens belching reliefs the pain. She currently on pepcid, will add gas x or mylanta for relief. Recommend outpatient stress test and echo. Will order 30 days event recorder. She denies CP, SOB at this time. Home Meds and New Rx's Prescriptions: New alum-mag hydroxide-simeth 200-200-20 mg/5 mL suspension 30 ml PO Q2H PRN PRNQty: 3000 RF: 0 simethicone [Gas-X Extra Strength] 125 mg capsule 125 mg PO BID-QID PRNQty: 100 RF: 0 Continued multivitamin tablet 1 tab PO DAILY RF: 0 lisinopril 20 mg tablet 20 mg PO BID RF: 0 cyanocobalamin (vitamin B-12) [Vitamin B-12] 500 mcg tablet 500 mcg PO DAILY RF: 0 labetalol 200 mg tablet 100 mg PO BID RF: 0 clopidogrel [Plavix] 75 mg tablet 75 mg PO DAILY Qty: 90 RF: 0 albuterol sulfate [Ventolin HFA] 90 mcg/actuation Hfa Aerosol Inhaler 2 puff INHALATION Q6H PRNRF: 0 ascorbic acid (vitamin C) [Vitamin C] 500 mg Tablet 500 mg PO BID Qty: 0 RF: 0 acetaminophen [Acetaminophen Extra Strength] 500 mg Tablet 500 mg PO Q6H PRNRF: 0 amlodipine 10 mg tablet 10 mg PO DAILY RF: 0 rosuvastatin 10 mg tablet 10 mg PO DAILY RF: 0 Co Q-10 300 mg Capsule 300 mg PO DAILY RF: 0 cholecalciferol (vitamin D3) [Vitamin D3] 50 mcg (2,000 unit) Capsule 50 mcg PO DAILY RF: 0 gabapentin 300 mg capsule 300 mg PO TID RF: 0 famotidine 40 mg tablet 40 mg PO DAILY Qty: 30 RF: 0 Levemir FlexTouch U-100 Insuln 100 unit/mL (3 mL) insulin pen 22 - 24 unit SUBCUT BID RF: 0 Discharge Instructions Instructions: Chest Pain (DC), Esophageal Spasm (GEN) Additional Instructions: Take mylanta or gas x for chest pain Follow up with PCP in 1 week we will call Tuesday to make appt. Recommend stress test and echo. Will place order for these and we will call you to sched Also recommend 30 day heart monitor. Activity:: Activity as Tolerated Equipment/Supplies:: No Equipment Needed Diet:: Low Sodium Discharge Orders Discharge Orders: Discharge Order (Routine); Ordered 08/29/21 Ordered By: Dorie Colin DS: Summary Time Spent with Patient providing and/or coordinating discharge services: Less than 30 minutes Status at Discharge Functional status at discharge: independent ambulation Overall status at discharge: patient is back to baseline Mental Status: mental status grossly normal Speech and Movement: speech and movement normal Mood: congruent mood Affect: normal affect Exam Narrative Exam Narrative: General: Patient appears appropriate for age, moderately obese, in no acute distress. She is alert and oriented x3. HEENT: Normocephalic, eyes with pupils equal and reactive to light symmetrically, extraocular movement active sclera anicteric. Oropharynx with moist mucosa and fair dentition. Neck: Supple without JVD. Lungs: Clear to auscultation and percussion. Back: Kyphotic without CVA tenderness. Heart: Regular rate and rhythm with no appreciable murmur or gallop. Abdomen: Obese contour, soft and nontender to palpation with no palpable hepatosplenomegaly. Bowel sounds positive in all quadrants. Extremities: Nonpitting edema with chronic skin changes over both legs with loss of hair but no hyperpigmentation or atrophy. Peripheral pulses intact. No cyanosis or clubbing. Joints have osteoarthritic changes with decreased range of motion. Skin: Pale, warm and dry. Neuro: Cranial nerves II through XII grossly intact, no focal motor deficits. No tremor. Psych: Slightly anxious with pressured speech, normal mood. No abnormal thought processes. Remote and recent memory intact. Psych Mental Status: mental status grossly normal Speech and Movement: speech and movement normal Mood: congruent mood Affect: normal affect DS: Data Vitals/I&O Vitals and I&O: Vital Signs Temperature 37.2 C 08/29/21 11:25 Temperature Source Tympanic 08/29/21 11:25 Pulse 68 08/29/21 11:25 Pulse Rhythm Regular 08/29/21 10:28 Pulse Strength Normal 08/28/21 20:59 Pulse 83 08/28/21 16:40 Respiratory Rate 16 08/29/21 11:25 Respiratory Effort Non-Labored 08/29/21 10:28 Respiratory Depth Normal 08/29/21 10:28 Respiratory Pattern Normal 08/29/21 10:28 Blood Pressure 144/82 H 08/29/21 11:25 Blood Pressure Mean 99 08/28/21 20:59 Blood Pressure Position Sitting 08/28/21 20:59 Pulse Oximetry 97 08/29/21 11:25 Oxygen Delivery Method Nasal Cannula 08/29/21 11:25 Oxygen Flow Rate 2 08/29/21 11:25 Pain Level 0 08/29/21 09:29 Comment 08/29/21 08:59 Intake & Output 08/28/21 08/29/21 08/29/21 23:59 11:59 23:59 Intake Total 500 / 900 400 / 900 Output Total 750 / 1100 350 / 1100 Balance -250 / -200 50 / -200 Weight 97.32 kg Intake: Oral 500 / 900 400 / 900 Output: Urine 750 / 1100 350 / 1100 Other: Urine Color Straw Yellow Urine Appearance Clear Clear Urine Odor Normal Strong Stool Size Small Stool Characteristics Soft Formed Voiding Methods Bedside Commode Bedside Commode Data Completed and Pending Completed studies during hospitalization [Text1]: Exam(s) PROCEDURE INFORMATION: Exam: XR Chest Exam date and time: 08/28/2021 17:05 Age: 76 years old Clinical indication: Other: Chest pain TECHNIQUE: Imaging protocol: XR of the chest. Views: 1 view. COMPARISON: CR XR PORTABLE CHEST AP 07/23/2020 18:41 FINDINGS: Lungs: No airspace consolidation. Pleural spaces: No significant pleural effusion. No pneumothorax. Heart/Mediastinum: Benign-appearing calcified mediastinal lymph nodes similar to prior. No significant cardiomegaly for position and projection. Vasculature: Similar caliber of the ascending aorta, suggesting aneurysm and or dissection. Could be worked up with CTA. Bones/joints: No acute fracture. IMPRESSION: 1. No acute cardiopulmonary pathology. 2. Chronic findings as described. : 4Age: 76 Exam(s) PROCEDURE INFORMATION: Exam: CTA Chest With Contrast Exam date and time: 08/28/2021 19:21 Age: 76 years old Clinical indication: Other: Chest pain, hypertensive, SOB, abnl cxr TECHNIQUE: Imaging protocol: Computed tomographic angiography of the chest with contrast. 3D rendering (Not supervised by radiologist): MIP and/or 3D reconstructed images were created by the technologist. COMPARISON: CT CHEST PE CTA 06/18/2019 15:14 FINDINGS: Pulmonary arteries: No pulmonary emboli. Aorta: Tortuous ascending aorta with a diameter of 35 mm stable since prior. No dissection. Tortuous descending aorta which is normal in caliber. Lungs: Mild motion artifact in the lungs. There is no pneumonia. A few scattered statistically benign pulmonary nodules. Follow-up as per institutional protocol. Pleural spaces: No pneumothorax. No pleural effusion. Heart: Stable moderate cardiomegaly. Trace pericardial fluid appears likely physiologic. Mediastinal space: Benign mediastinal calcifications. No significant adenopathy. Lymph nodes: See Mediastinal space finding. Bones/joints: No acute fracture. Soft tissues: No suspicious lesions. IMPRESSION: 1. No acute findings. 2. Stable moderate cardiomegaly. Labs on day of discharge: Labs from last 24 hours 11/27/21 11/27/21 11/27/21 09:30 06:43 06:43 WBC 7.82 RBC 4.17 Hgb 12.1 Hct 38.5 MCV 92.3 MCH 29.0 MCHC 31.4 L RDW 13.2 Plt Count 207 MPV 9.9 Immature Gran % 0.3 Neutrophils % 67.2 Lymphocytes % 21.1 Monocytes % 8.2 Eosinophils % 2.2 Basophils % 1.0 Nucleated RBC % 0 Absolute Neutrophils 5.26 Absolute Lymphocytes 1.65 Absolute Monocytes 0.64 Absolute Eosinophils 0.17 Absolute Basophils 0.08 Sodium 143 Potassium 3.7 Chloride 107 Carbon Dioxide 26.6 Anion Gap 9.4 BUN 16 Creatinine 0.6 Estimated GFR/1.73 m2 >= 60.00 Glucose 135 H Calcium 8.6 Magnesium Total Bilirubin 0.6 AST 18 ALT 22 Alkaline Phosphatase 97 Troponin I < 0.05 < 0.05 NT-Pro-B Natriuret Pep Total Protein 6.3 L Albumin 3.4 TSH COVID-19 Source SARS-CoV-2 (PCR) 08/29/21 08/28/21 08/28/21 06:43 20:20 20:20 WBC RBC Hgb Hct MCV MCH MCHC RDW Plt Count MPV Immature Gran % Neutrophils % Lymphocytes % Monocytes % Eosinophils % Basophils % Nucleated RBC % Absolute Neutrophils Absolute Lymphocytes Absolute Monocytes Absolute Eosinophils Absolute Basophils Sodium Potassium Chloride Carbon Dioxide Anion Gap BUN Creatinine Estimated GFR/1.73 m2 Glucose Calcium Magnesium Total Bilirubin AST ALT Alkaline Phosphatase Troponin I < 0.05 NT-Pro-B Natriuret Pep Total Protein Albumin TSH 1.64 COVID-19 Source Nasal/Nares SARS-CoV-2 (PCR) Negative 08/28/21 08/28/21 08/28/21 17:10 17:09 17:04 WBC 10.04 RBC 4.45 Hgb 13.0 Hct 40.8 MCV 91.7 MCH 29.2 MCHC 31.9 L RDW 13.2 Plt Count 221 MPV 9.8 Immature Gran % 0.5 Neutrophils % 72.4 Lymphocytes % 18.3 Monocytes % 6.4 Eosinophils % 1.6 Basophils % 0.8 Nucleated RBC % 0 Absolute Neutrophils 7.27 H Absolute Lymphocytes 1.84 Absolute Monocytes 0.64 Absolute Eosinophils 0.16 Absolute Basophils 0.08 Sodium 143 Potassium 3.8 Chloride 106 Carbon Dioxide 27.9 Anion Gap 9.1 BUN 19 H Creatinine 0.7 Estimated GFR/1.73 m2 >= 60.00 Glucose 148 H Calcium 8.9 Magnesium 2.2 Total Bilirubin 0.5 AST 21 ALT 27 Alkaline Phosphatase 110 Troponin I < 0.05 NT-Pro-B Natriuret Pep 263 Total Protein 7.1 Albumin 3.8 TSH COVID-19 Source SARS-CoV-2 (PCR) [facility] Active Problem List Dyspnea on exertion (Acute) Atypical chest pain (Acute) Chest pain (Acute) Shortness of breath (Acute) Painful orthopaedic hardware (Acute) CVA (cerebral vascular accident) (Chronic) Diabetes mellitus (Chronic) COPD without exacerbation (Acute) Neuropathy (Acute) DVT prophylaxis (Acute) Discharge planning issues (Acute) Fever (Acute) Vulvitis (Acute) AV block, 1st degree (Acute) Mixed hyperlipidemia (Acute) Sleep apnea (Acute) GERD (gastroesophageal reflux disease) (Chronic) Lumbago with sciatica (Chronic) Lipoma of extremity (Acute) Arthritis of knee, left (Acute) S/P skin biopsy (Acute) Bimalleolar fracture of right ankle (Acute 03/16/20) Periprosthetic fracture around internal prosthetic right knee joint, initial encounter (Acute 03/16/20) Status post total knee replacement, right (Acute 02/05/19) Hypertension (Chronic) Medical History Arthritis of knee, right GI bleed Gout Hiatal hernia History of depression meds in past presently on no rx for depression History of hemorrhagic stroke with residual hemiparesis (R) Hyperlipidemia TIM (obstructive sleep apnea) has used cpap in past presently not using Osteoarthritis Surgical History History of appendectomy History of arthroscopic knee surgery History of colonoscopy History of hysterectomy Family History Father Heart disease Social History Smoking/Tobacco Use Status: Never Smoking risk assessment performed?: Yes Alcohol Intake: never Drug use: Never Substance use type: does not use Household members: significant other Number of Children: 0 current occupation: retired. Pets and animals: No Current gender identity: female What type of physical activity do you participate in: none Seatbelt use: always Do you feel safe at home: Yes Do you feel safe in your relationship?: Yes Additional Social history: Female Reproductive History Menstrual Menopause type: surgical
--- NOTE | 2021-08-29 16:58 | PDOC.CMDIS ---
- If Service Date Differs Date of service: 08/29/21 Time of Service: 16:58 LACE Index Scoring Tool - Questions: Length of Stay (in days): 1 Acuity (Admit via E.D.?): Yes Comorbidities: Cerebrovascular Disease E.D. Visits: 1 - Answers: Total Score: 6 Risk of Readmission: Low Risk Care Management Discharge Reason for Hospitalization: Atypical chest pain, dyspnea with exertion. Discharge Plan: Ally is discharged home with no services. She will follow up with her PCP and plan of care as directed. She will have an outpatient stress test and echocardiogram and is going home with a 30-day event recorder. Her partner, Ramos, is driving her home via private vehicle. Patient/Family Education Needs: Review discharge instructions including limitations, medications, and follow up plan of care; discuss Ask Me Three and self management.
== END 2021-08-29 17:29 | disposition home or self-care (01) | DRG 313 ==
LOC: ER 21:39 → MS 22:08
PROVIDERS: Nurse Practitioner Family; Student in an Organized Health Care Education/Training Program; Admitting Provider Family Medicine; Emergency Provider Emergency Medicine; PCP Nurse Practitioner Family; Visit Provider Family Medicine
DX: R07.89 Other chest pain (principal); I10 Essential (primary) hypertension; E11.59 Type 2 diabetes mellitus with other circulatory complications; E11.40 Type 2 diabetes mellitus with diabetic neuropathy, unspecified; J44.9 Chronic obstructive pulmonary disease, unspecified; R06.00 Dyspnea, unspecified; K21.9 Gastro-esophageal reflux disease without esophagitis; I44.0 Atrioventricular block, first degree; Z86.73 Personal history of transient ischemic attack (TIA), and cerebral infarction without residual deficits; E78.5 Hyperlipidemia, unspecified; I67.2 Cerebral atherosclerosis; Z79.4 Long term (current) use of insulin; E78.2 Mixed hyperlipidemia; G47.30 Sleep apnea, unspecified; M54.40 Lumbago with sciatica, unspecified side; Z96.651 Presence of right artificial knee joint
CPT/HCPCS: 36415; 36416; 36556; 71275; 74177; 80053; 82962; 87635; 90662; 93005; 93270; 99285; 71045; 83735; 83880; 84443; 84484; 85025; 93010; 99223; 99238; J1644; J3490

== ENCOUNTER 2021-09-07 00:43 | Outpatient (CLI) | payer MEDICARE, OTHER, SELFPAY ==
--- NOTE | 2021-09-07 14:50 | DI.US_ITS ---
APPROVED REPORT EXAM: Comprehensive 2D, Doppler, and color-flow Echocardiogram Patient Location: Out-Patient [place] Player: Laura Haynes RDCS (AE) Indications: Chest pain Other Information Study Quality: Adequate Conclusion Normal left ventricular wall thickness and chamber size. Estimated ejection fraction is 55 to 60%. Wall motion is normal Normal right ventricular size and systolic function The left atrium is mildly dilated. The right atrium is normal size The aortic valve is trileaflet and sclerotic without stenosis or regurgitation Mild mitral annular calcification. Trace mitral regurgitation Normal tricuspid valve with trace regurgitation. Estimated right ventricular systolic pressure is no rmal at 28 mmHg Wall motion Left Ventricle The left ventricle is normal size. The left ventricular systolic function is normal. The left ventric ular ejection fraction is within the normal range. There is normal left ventricular wall thickness. T here is normal LV segmental wall motion. There is no ventricular septal defect visualized. LVEF is 55 %. Right Ventricle The right ventricle is normal size. The right ventricular systolic function is normal. The RVSP is 28 .4 mmHg. Atria Left atrium is mildly dilated. The right atrium size is normal. The interatrial septum is intact with no evidence for an atrial septal defect. Aortic Valve The Aortic valve is sclerotic. Aortic valve is trileaflet. No hemodynamically significant valvular ao rtic stenosis. No aortic regurgitation is present. Mitral Valve Mild mitral annular calcification. No evidence of mitral valve stenosis. Trace mitral regurgitation. Tricuspid Valve The tricuspid valve is normal in structure. There is no tricuspid valve stenosis. Trace tricuspid reg urgitation. Pulmonic Valve The pulmonary valve is normal in structure. There is no pulmonic valvular stenosis. Trace pulmonic re gurgitation. Great Vessels The aortic root is normal in size. The ascending aorta is normal in size Aortic arch is normal in sarina iber. IVC is normal in size and collapses >50% with inspiration. Pericardium There is no pericardial effusion. 2D Dimensions IVSD d PLAX 1.03 cm F: 0.6-1.0 LV Vol A2C d MOD 123.2 mL LVPW d PLAX 1.02 cm F: 0.6 - 1.0 LV Vol A4C d MOD 89.4 mL LVID d PLAX 4.53 cm F: 3.8 - 5.2 LA vol/ BSA A4C s A-L 36.8 mL/m2 LVDs 3.20 cm F: 2.2 - 3.5 LA Area A4C s MOD 24.11 cm2 Ao Root d 2.64 cm F: 2.7 - 3.3 LV EF A4C MOD 57.8 % RA Area A4C 13.76 cm2 LV EF A2C MOD 55.8 % RA Vol/ BSA A4C s A-L 13.6 mL/m2 LV EF Biplane MOD 54.1 % Ao Asc Diam d 3.30 cm F: 2.3 - 3.1 SV 58.42 mL LV EF Teichholz 55.1 % SV Index 27.16 mL/m2 LVEF (Sultana's) 54.10 % F: 54 - 74 LV Volume 79.09 mL F: 46 - 106 LV Volume Index 36.78 mL/m2 F: 29 - 61 LV Vol Biplane MOD 108.0 mL FS 28.45 % M-Mode TAPSE 2.78 cm (M/F) >1.7 LV Diastology MV E' medial 0.104 (>0.07 m/s) E/A Ratio 0.6 LV E/e MED 6.80 (<14) MV E Vmax 0.71 (0.4-1.3 m/s) MV E' lateral 0.054 (>0.1 m/s) MV A Vmax 1.25 (0.4-1.3 m/s) LV E/e LAT 13.10 (<14) MV E/A Ratio 0.56 MV E/E' medial 6.80 MV E/E' lateral 13.14 Aortic Valve LVOT Area 2.98 cm2 AoV Area Vmax 1.84 cm2 LVOT Vmax 1.21 m/s AoV Area/ BSA (Vmax) 0.86 cm2/m2 LVOT Mean Davin. 0.85 m/s CHAYO Mean Davin. 1.92 cm2 LVOT Peak Grad 5.8 mmHg CHAYO Mean Davin. Index 0.89 cm2/m2 LVOT Mean Grad 3.3 mmHg LVOT VTI 0.286 m LVOT Diam s 1.90 cm AoV Vmax 1.96 m/s Velocity Ratio 0.61 AoV Mean Davin. 1.32 m/s AoV Peak Grad 15.3 mmHg LVOT SV 85.32 mL AoV Mean Grad 8.0 mmHg AoV VTI 0.422 m AoV Area VTI 2.02 cm2 AoV Area/ BSA (VTI) 0.94 cm/m2 Mitral Valve MV DT 337 (160-240 msec) MV PHT 98 msec MV Area PHT 2.25 cm2 MV VTI 0.417 m MV Area VTI 2.05 (4.0-6.0 cm2) Pulmonary Valve PV Vmax 0.96 (0.5-1.5 m/s) RVOT Peak Gr. 2.61 mmHg PV Peak Grad 3.7 mmHg RVOT Mean Gr. 1.45 mmHg PV Mean Grad 2.1 mmHg RVOT VTI 0.181 m PV VTI 0.216 m RVOT Vmax 0.81 m/s Tricuspid Valve TR Peak Grad 25.3 mmHg TR Vmax 2.52 m/s RA Pressure 3.00 mmHg RVSP (TR) 28.4 mmHg
== END 2021-09-07 01:03 ==
LOC: DI 00:43
PROVIDERS: PCP Nurse Practitioner Family; Visit Provider Nurse Practitioner Family
DX: R07.9 Chest pain, unspecified (principal); I51.7 Cardiomegaly
CPT/HCPCS: 93306

== ENCOUNTER 2021-09-08 00:34 | Outpatient (CLI) | payer MEDICARE, OTHER, SELFPAY ==
--- NOTE | 2021-09-08 09:15 | DI.NM_ITS ---
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, gerd, lumbago w/ sciatica, aphasia, TIA, osteoarthritis, hx of several R leg surgeries post injur y Cardiac Medications: Labetalol, rosuvastatin, lisinopril, amlodipine, clopidogrel, gabapentin, famoti dine, albueterol sulfate, levemir insulin Allergies: aspirin, ibuprofen, tetracyclines, buspirone, codeine, pantazocine, bactrim, cipro, cymbal ta, prednisone, tramadol, oxycodone, propoxyphene Cardiac Risk Factors: Hypertension, hyperlipidemia, diabetes, COPD, family hx Previous Cardiac Procedures: None Pretest Chest Pain Characteristics: mild SOB, intermittent 4-5/10 CP Exercise History: Sedentary Physical Disabilities: RLE Lung Sounds: Clear to auscultation Heart Sounds: Regular Stress Test Details Test: Pharmacologic stress testing performed using 0.4 mg of regadenoson per 5 mL given IV over 10 s econds. Reason for pharmacologic stress test: physical limitation. Nuclear Acquisition: Rest Tc-99m/Stress Tc-99m 1 day Rest Isotope: Tc-99m Sestamibi. Dose: 12.3 Date: 09/08/2021 Injection Time: 0920 Stress Isotope: Tc-99m Sestamibi. Dose: 36.5 Date: 09/08/2021 Injection Time: 1130 HR Resting HR Supine: 73 bpm Max Heart Rate (APMHR): 143 bpm Target HR (85% APMHR): 121 bpm Max HR Achieved: 101 bpm % of APMHR: 70 Recovery HR: 84 bpm BP Resting BP Supine: 182/80 mmHg Max BP: 190/84 mmHg Recovery BP: 162/84 mmHg ECG Resting ECG: Sinus Rhythm, 1st degree AV block Stress ECG: Sinus Tachycardia, 1st degree AV block ST Change: No significant ST segment changes noted Arrhythmia: Rare PVCs Recovery ECG: Sinus Rhythm, 1st degree AV block Recovery ST Change: No significant ST segment changes noted Recovery Arrhythmia: None Clinical Stress Symptoms: Dyspnea Rate Pressure Product: [id number] Stress ECG Conclusion 1. Resting electrocardiogram showed poor R wave progression 2. Patient underwent pharmacologic stress with regadenoson 3. Peak heart rate achieved was 70% of maximal for age 4. Electrocardiographically the test was nondiagnostic due to inadequate heart rate MPI Conclusion Normal myocardial perfusion without evidence of ischemia or prior infarction EF 62%, normal wall motion Radiologist Interpretation Radiologist Interpretation by: Maalchi Mclean MD Interpretation Date/Time: 09/08/2021 15:36:45
[2021-09-08] MEDS: Regadenoson 0.4 MG/5 ML SYR IVP (11:44)
--- NOTE | 2021-09-14 08:39 | W.CARDEVENT ---
Date of service: 09/14/21 Time of Service: 08:39 Cardiac Event Recorder Referring Provider:: Juan Francisco Indications:: A Cardiac Event Note: This is an Event Monitor ordered for indication of chest pain. ?The patient wore the monitor for a total of 14 days. ?Patient was normal sinus rhythm for the majority the recording with an average heart rate of 67 bpm. ?There were no serious or critical events recorded. ?There were no episodes of atrial fibrillation, no pauses greater than 3 seconds and no evidence of high degree heart block. ?There was 1 patient triggered event associate with sinus rhythm.
== END 2021-09-08 00:54 ==
LOC: DI 00:34
PROVIDERS: PCP Nurse Practitioner Family; Visit Provider Nurse Practitioner Family
DX: R06.02 Shortness of breath (principal); I10 Essential (primary) hypertension; E78.5 Hyperlipidemia, unspecified; E11.9 Type 2 diabetes mellitus without complications; J44.9 Chronic obstructive pulmonary disease, unspecified; Z82.49 Family history of ischemic heart disease and other diseases of the circulatory system; R94.39 Abnormal result of other cardiovascular function study
CPT/HCPCS: 78452; 93016; 93018; 93017; J2785

== ENCOUNTER 2021-09-14 08:39 | Outpatient (CLI) | payer MEDICARE, OTHER, SELFPAY | END 2021-09-14 08:40 | LOC: CARDO 09-21 12:40 | PROVIDERS: PCP Nurse Practitioner Family; Referring Provider Internal Medicine Cardiovascular Disease; Visit Provider Internal Medicine Cardiovascular Disease | DX: R07.9 Chest pain, unspecified (principal) | CPT/HCPCS: 93272 ==

== ENCOUNTER 2021-09-23 17:34 | Observation (INO) | payer MEDICARE, OTHER, SELFPAY ==
[2021-09-23] VITALS (10 sets, daily range): BP systolic 123–173; BP diastolic 62–92; PULSE 59–79; RESP 14–17; TEMP 35.9–36.6; O2SAT 96–98
--- NOTE | 2021-09-23 17:45 | RT.EKG_ITS ---
APPROVED REPORT Exam: Resting ECG Reason for Exam: Hypertension Patient Location: E HR:76 bpm ECG Measurements Heart Rate 76 AXIS MA 273 P -14 QRSd 97 QRS -20 QT 417 T 75 QTc 467 Conclusion Sinus rhythm...normal P axis, V-rate 60- 99 Prolonged MA interval...MA >220, V-rate 50- 90 LVH with secondary repolarization abnormality...multi-LVH criteria, abnrm ST-T
--- NOTE | 2021-09-23 17:45 | DI.CT_ITS ---
Exam(s) CT HEAD WO EXAM: CT HEAD WO CLINICAL HISTORY: headache, hypertension. TECHNIQUE: Imaging Protocol: Axial computed tomography images with coronal and sagittal reformatted images were created and reviewed COMPARISON: CT CT BRAIN NECK CTA from 07/23/2020 FINDINGS: Ventricles and Extra axial spaces: Normal in size and morphology for the patient's age. Hemorrhage: None. Cerebral parenchyma: Is stable appearance of small bilateral basal ganglia lacunar infarcts. No sign ificant atrophy. No evidence of acute infarct or mass. Midline shift: None. Brainstem/Cerebellum: Normal. Calvarium: Normal. Visualized Paranasal sinuses/Mastoids: Clear. Soft Tissues: Unremarkable. IMPRESSION: No acute intracranial process. RADIATION DOSE DELIVERED: 647.26mGy.cm Total DLP DATA REPOSITORY: All CT scans at this facility are submitted to the National Radiology Data Registry (NRDR) Dose Index Registry (DIR) with the [employer] (ACR). RADIATION OPTIMIZATION: All CT scans at this facility use at least one of these dose optimization te chniques: automated exposure control; mA and/or kV adjustment per patient size (includes targeted exa ms where dose is matched to clinical indication); or iterative reconstruction.
[2021-09-23 19:04] LABS: Abs Immature Grans 0.02 10^3/uL (0.0-0.06); Absolute Basophil Count 0.08 10^3/uL (0.0-0.2); Absolute Eosinophil Count 0.16 10^3/uL (0.0-0.7); Absolute Lymphocyte Count 1.67 10^3/uL (1.2-3.4); Absolute Monocyte Count 0.61 10^3/uL (0.1-0.8); Absolute Neutrophil Count 6.35 10^3/uL (1.2-6.7); Basophils % 0.9; Eosinophils % 1.8; HCT 41.3 % (36.0-46.0); HGB 12.9 g/dL (11.2-15.7); Immature Grans % 0.2; Lymphocytes % 18.8; MCH 28.5 pg (27.0-33.0); MCHC 31.2 % (32.0-36.0); MCV 91.4 fL (80-95); MPV 10.2 fL (8.0-11.0); Monocytes % 6.9; Neutrophils % 71.4; Nucleated RBC 0 %; Platelet Count 241 10^3/uL (130-400); RBC 4.52 10^6/uL (3.93-5.22); RDW 13.6 % (11.7-14.6); RDW-SD 45.8 fL; WBC 8.89 10^3/uL (4.4-10.8)
[2021-09-23 19:07] LABS: Bilirubin Negative (Negative); Blood Negative (Negative); Clarity Clear (Clear); Glucose Negative (Negative); Ketones Negative (Negative); Leukocyte Esterase Negative (Negative); Nitrite Negative (Negative); Specific Gravity 1.025 (1.005-1.025); Urobilinogen 0.2 EU/dL (Up TO 0.2)
[2021-09-23 19:07] LABS: ALT 27 U/L (14-59); AST 20 U/L (15-37); Alkaline Phosphatase 106 U/L (46-116); Anion Gap 9.1 mmol/L (3-11); BUN 15 mg/dL (7-18); Bilirubin, Total 0.4 mg/dL (0.2-1.0); CO2 27.9 mmol/L (21.0-32.0); CREATININE 0.7 mg/dL (0.55-1.02); Calcium 9.4 mg/dL (8.5-10.1); Chloride 104 mmol/L (98-107); Glucose 206 mg/dL (74-106); Magnesium 2.1 mg/dL (1.8-2.4); Potassium 3.7 mmol/L (3.5-5.1); Sodium 141 mmol/L (136-145); Total Protein 7.5 g/dL (6.4-8.2); Troponin I < 50 ng/L (<or=60)
--- NOTE | 2021-09-23 19:49 | DI.VRAD_ITS ---
PROCEDURE INFORMATION: Exam: CT Head Without Contrast Exam date and time: 09/23/2021 5:54 PM Age: 76 years old Clinical indication: Other: YOU, HTN TECHNIQUE: Imaging protocol: Computed tomography of the head without contrast. COMPARISON: MR BRAIN WO 07/24/2020 11:41 AM FINDINGS: Brain: Cerebral sulci show bilateral symmetry with no supratentorial mass or mass effect detected. Poorly marginated hypodensities seen throughout the deep and periventricular white matter of both cerebral hemispheres are consistent with microvascular ischemic changes and suspected underlying prominence of perivascular spaces is also again evident, an anatomic variant. Brainstem and cerebellum are unremarkable and there is no evidence of acute infarct or recent intracranial hemorrhage. Cerebral ventricles: Normal in size and configuration with no midline shift or hydrocephalus. Paranasal sinuses: Mucosal disease along the base of the left maxillary sinus with other paranasal sinuses clear throughout. Mastoid air cells: Normally pneumatized and clear bilaterally. Bones/joints: Bony calvarium and skull base are intact and no acute fractures are detected. Soft tissues: Unremarkable. IMPRESSION: Probable microvascular ischemic changes and underlying prominence of perivascular spaces again evident with no evidence of acute infarct, recent hemorrhage or hydrocephalus. No acute intracranial process is detected. Dictated and Authenticated by: Sriram Tang MD. Ordering:RADHA Holcomb MD
[2021-09-23] MEDS: Acetaminophen 500 MG TAB 1000 MG PO (20:11)
[2021-09-23] MEDS: Labetalol 100 MG/20 ML VIAL 20 MG IVP (20:30)
--- NOTE | 2021-09-23 21:06 | ED.GENADUL_ITS ---
Discharge Plan Disposition Patient Disposition: [facility] INPATIENT Condition: Stable Discharge Details Clinical Impression: Hypertensive emergency Primary Care Provider: Ximena Graham ED Provider: Aicha Bautista Home Meds and New Rx's Prescriptions: No Action multivitamin tablet 1 tab PO DAILY RF: 0 lisinopril 20 mg tablet 20 mg PO BID RF: 0 cyanocobalamin (vitamin B-12) [Vitamin B-12] 500 mcg tablet 500 mcg PO DAILY RF: 0 labetalol 200 mg tablet 100 mg PO BID RF: 0 clopidogrel [Plavix] 75 mg tablet 75 mg PO DAILY Qty: 90 RF: 0 albuterol sulfate [Ventolin HFA] 90 mcg/actuation Hfa Aerosol Inhaler 2 puff INHALATION Q6H PRNRF: 0 ascorbic acid (vitamin C) [Vitamin C] 500 mg Tablet 500 mg PO BID Qty: 0 RF: 0 acetaminophen [Acetaminophen Extra Strength] 500 mg Tablet 500 mg PO Q6H PRNRF: 0 amlodipine 10 mg tablet 10 mg PO DAILY RF: 0 rosuvastatin 10 mg tablet 10 mg PO DAILY RF: 0 Co Q-10 300 mg Capsule 300 mg PO DAILY RF: 0 cholecalciferol (vitamin D3) [Vitamin D3] 50 mcg (2,000 unit) Capsule 50 mcg PO DAILY RF: 0 gabapentin 300 mg capsule 300 mg PO TID RF: 0 famotidine 40 mg tablet 40 mg PO DAILY Qty: 30 RF: 0 Levemir FlexTouch U-100 Insuln 100 unit/mL (3 mL) insulin pen 22 - 24 unit SUBCUT BID RF: 0 alum-mag hydroxide-simeth 200-200-20 mg/5 mL suspension 30 ml PO Q2H PRN PRNQty: 3000 RF: 0 simethicone [Gas-X Extra Strength] 125 mg capsule 125 mg PO BID-QID PRNQty: 100 RF: 0 Medical Decision Making patient presents with headache elevated blood pressure and shaking. has history of CVA with similar presentation. concern for hypertensive emergency, CVA, migraine. will initiate routine stroke work up . given phenergan 25 mg for nausea and apap 1000 mg po for headache. CT scan shows microvascular ischemic changes, no acute infarct, hemorrhage or hydrocephalus. blood pressures remain 170-180 systolic, shaking and nausea have improved but still with headache. labetalol 20 mg IVP with improvement in SBP to 150 with further improvement in symptoms case discussed with hospitalist for obs admission for MRI in am and further blood pressure management as needed. report and care of patient handed off to Dr Fuentes Medical Records Medical records reviewed: Yes I reviewed the patient's medical records. Imaging Data Radiologic Study: Imaging: CT Scan (head without) Radiologist's impression: Exam(s) PROCEDURE INFORMATION: Exam: CT Head Without Contrast Exam date and time: 09/23/2021 5:54 PM Age: 76 years old Clinical indication: Other: YOU, HTN TECHNIQUE: Imaging protocol: Computed tomography of the head without contrast. COMPARISON: MR BRAIN WO 07/24/2020 11:41 AM FINDINGS: Brain: Cerebral sulci show bilateral symmetry with no supratentorial mass or mass effect detected. Poorly marginated hypodensities seen throughout the deep and periventricular white matter of both cerebral hemispheres are consistent with microvascular ischemic changes and suspected underlying prominence of perivascular spaces is also again evident, an anatomic variant. Brainstem and cerebellum are unremarkable and there is no evidence of acute infarct or recent intracranial hemorrhage. Cerebral ventricles: Normal in size and configuration with no midline shift or hydrocephalus. Paranasal sinuses: Mucosal disease along the base of the left maxillary sinus with other paranasal sinuses clear throughout. Mastoid air cells: Normally pneumatized and clear bilaterally. Bones/joints: Bony calvarium and skull base are intact and no acute fractures are detected. Soft tissues: Unremarkable. IMPRESSION: Probable microvascular ischemic changes and underlying prominence of perivascular spaces again evident with no evidence of acute infarct, recent hemorrhage or hydrocephalus. No acute intracranial process is detected. Dictated and Authenticated by: Sriram Tang MD. Ordering:RADHA Holcomb MD Lab Data Lab results reviewed: Yes I reviewed the patient's lab results. Lab results narrative: Laboratory Results - last 24 hr 09/23/21 09/23/21 09/23/21 18:40 18:40 19:00 WBC 8.89 RBC 4.52 Hgb 12.9 Hct 41.3 MCV 91.4 MCH 28.5 MCHC 31.2 L RDW 13.6 Plt Count 241 MPV 10.2 Immature Gran % 0.2 Neutrophils % 71.4 Lymphocytes % 18.8 Monocytes % 6.9 Eosinophils % 1.8 Basophils % 0.9 Nucleated RBC % 0 Absolute Neutrophils 6.35 Absolute Lymphocytes 1.67 Absolute Monocytes 0.61 Absolute Eosinophils 0.16 Absolute Basophils 0.08 Sodium 141 Potassium 3.7 Chloride 104 Carbon Dioxide 27.9 Anion Gap 9.1 BUN 15 Creatinine 0.7 Estimated GFR/1.73 m2 >= 60.00 Glucose 206 H Calcium 9.4 Magnesium 2.1 Total Bilirubin 0.4 AST 20 ALT 27 Alkaline Phosphatase 106 Troponin I < 50 Total Protein 7.5 Albumin 4.0 Urine Color Yellow Urine Clarity Clear Urine pH 7.0 Ur Specific [place] 1.025 Urine Protein Negative Urine Ketones Negative Urine Blood Negative Urine Nitrite Negative Urine Bilirubin Negative Urine Urobilinogen 0.2 Ur Leukocyte Esterase Negative Urine Glucose Negative HPI General Mode of arrival: ambulatory . Date/Time Provider Initiated Documentation: 09/23/21 17:49 . Limitations to Documentation: no limitations . Information obtained by: patient and family () . HPI Narrative: 76 year old female with extensive medical history who presents with headache, shaking, nausea and high blood pressure readings. taking all her medication as prescribed. Related Data Home Medications Medication Instructions Recorded Confirmed cyanocobalamin (vitamin B-12) 500 500 mcg PO DAILY 07/11/18 08/28/21 mcg tablet lisinopril 20 mg tablet 20 mg PO BID tab 07/11/18 08/28/21 multivitamin 1 tab PO DAILY 07/11/18 08/28/21 albuterol sulfate [Ventolin HFA] 2 puff INHALATION Q6H PRN 06/18/19 08/28/21 ascorbic acid (vitamin C) [Vitamin 500 mg PO BID #0 tab 03/21/20 08/28/21 C] Co Q-10 300 mg PO DAILY 07/23/20 08/28/21 acetaminophen [Acetaminophen Extra 500 mg PO Q6H PRN 07/23/20 08/28/21 Strength] amlodipine 10 mg PO DAILY 07/23/20 08/28/21 cholecalciferol (vitamin D3) 50 mcg PO DAILY 07/23/20 08/28/21 [Vitamin D3] gabapentin 300 mg PO TID 07/23/20 08/28/21 rosuvastatin 10 mg PO DAILY 07/23/20 08/28/21 famotidine 40 mg PO DAILY #30 tab 07/25/20 08/28/21 labetalol 200 mg tablet 100 mg PO BID tab 09/10/20 08/28/21 Levemir FlexTouch U-100 Insuln 22 - 24 unit SUBCUT BID 04/15/21 08/28/21 clopidogrel 75 mg tablet 75 mg PO DAILY #90 tab 08/28/21 alum-mag hydroxide-simeth 30 ml PO Q2H PRN PRN #3000 ml 08/29/21 simethicone [Gas-X Extra Strength] 125 mg PO BID-QID PRN #100 cap 08/29/21 Previous Rx's Medication Instructions Recorded ascorbic acid (vitamin C) [Vitamin 500 mg PO BID #0 tab 03/21/20 C] famotidine 40 mg PO DAILY #30 tab 07/25/20 clopidogrel 75 mg tablet 75 mg PO DAILY #90 tab 08/28/21 alum-mag hydroxide-simeth 30 ml PO Q2H PRN PRN #3000 ml 08/29/21 simethicone [Gas-X Extra Strength] 125 mg PO BID-QID PRN #100 cap 08/29/21 Allergies Allergy/AdvReac Type Severity Reaction Status Date / Time aspirin Allergy Severe GI Bleed Verified 09/23/21 17:50 ibuprofen [From Motrin] Allergy Severe GI Bleed Verified 09/23/21 17:50 Tetracyclines Allergy Severe Makes my Verified 09/23/21 17:50 skin peel and throat close up buspirone Allergy Unknown Verified 09/23/21 17:50 codeine Allergy Unknown Verified 09/23/21 17:50 pentazocine [From Talwin] Allergy Unknown Verified 09/23/21 17:50 sulfamethoxazole Allergy Unknown Verified 09/23/21 17:50 [From Bactrim] trimethoprim [From Bactrim] Allergy Unknown Verified 09/23/21 17:50 ciprofloxacin [From Cipro] AdvReac Severe made my Verified 09/23/21 17:50 stomach bleed duloxetine [From Cymbalta] AdvReac Severe made me Verified 09/23/21 17:50 sick and suicidal prednisone AdvReac Severe Raises BP Verified 09/23/21 17:50 and blood sugar per Pt tramadol AdvReac Severe major GI Verified 09/23/21 17:50 upset oxycodone [From Percocet] AdvReac Unknown Verified 09/23/21 17:50 propoxyphene AdvReac Unknown Verified 09/23/21 17:50 [From Darvocet-N] General Stated Complaint: GenMedical RADHA: 3 Review of Systems Constitutional Constitutional: Denies fever(s), Reports headache(s) and Reports weakness Eyes Eyes: Denies change in vision ENT Ears, Nose, Mouth, and Throat: Denies vertigo, Denies dizziness and Reports headache(s) Respiratory Respiratory: Denies cough Gastrointestinal Gastrointestinal: Denies abdominal pain, Reports nausea and Denies vomiting Musculoskeletal Musculoskeletal: Denies myalgias and Denies deformity Integumentary/Breasts Skin/Breast: Denies rash Neurologic Neurologic: Denies vertigo, Denies dizziness, Reports headache(s), Reports tremor(s) and Reports weakness PFS All Active Problems (Updated 09/23/21 @ 21:53 by Dimitri Fuentes MD) Headache (Acute) Hypertensive emergency (Acute) Dyspnea on exertion (Acute) Atypical chest pain (Acute) Chest pain (Acute) Shortness of breath (Acute) Painful orthopaedic hardware (Acute) Status post removal of syndesmotic screw DOS: 04/16/2021 CVA (cerebral vascular accident) (Chronic) Diabetes mellitus (Chronic) COPD without exacerbation (Acute) Neuropathy (Acute) DVT prophylaxis (Acute) Discharge planning issues (Acute) Fever (Acute) Vulvitis (Acute) 06/2020. Unclear etiology. Rx with topical yeast/steroid. 08/2020. punch bx of R vaginal vestibule. 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 Lipoma of extremity (Acute) Arthritis of knee, left (Acute) Depo-Medrol injection: 08/05/2021; 04/29/2021 S/P skin biopsy (Acute) 08/2020. R side of vaginal vestibule. Bimalleolar fracture of right ankle (Acute 03/16/20) March 2020 s/p ORIF Periprosthetic fracture around internal prosthetic right knee joint, initial encounter (Acute 03/16/20) March 2020 s/p ORIF Status post total knee replacement, right (Acute 02/05/19) Dr. Monge Hypertension (Chronic) Active Problem List Dyspnea on exertion (Acute) Atypical chest pain (Acute) Chest pain (Acute) Shortness of breath (Acute) Painful orthopaedic hardware (Acute) CVA (cerebral vascular accident) (Chronic) Diabetes mellitus (Chronic) COPD without exacerbation (Acute) Neuropathy (Acute) DVT prophylaxis (Acute) Discharge planning issues (Acute) Fever (Acute) Vulvitis (Acute) AV block, 1st degree (Acute) Mixed hyperlipidemia (Acute) Sleep apnea (Acute) GERD (gastroesophageal reflux disease) (Chronic) Lumbago with sciatica (Chronic) Lipoma of extremity (Acute) Arthritis of knee, left (Acute) S/P skin biopsy (Acute) Bimalleolar fracture of right ankle (Acute 03/16/20) Periprosthetic fracture around internal prosthetic right knee joint, initial encounter (Acute 03/16/20) Status post total knee replacement, right (Acute 02/05/19) Hypertension (Chronic) Medical History Arthritis of knee, right GI bleed Gout Hiatal hernia History of depression meds in past presently on no rx for depression History of hemorrhagic stroke with residual hemiparesis (R) Hyperlipidemia TIM (obstructive sleep apnea) has used cpap in past presently not using Osteoarthritis Surgical History History of appendectomy History of arthroscopic knee surgery History of colonoscopy History of hysterectomy Family History Father Heart disease Social History Smoking/Tobacco Use Status: Never Smoking risk assessment performed?: Yes Alcohol Intake: never Drug use: Never Substance use type: does not use Household members: significant other Number of Children: 0 current occupation: retired. Pets and animals: No Current gender identity: female What type of physical activity do you participate in: none Seatbelt use: always Do you feel safe at home: Yes Do you feel safe in your relationship?: Yes Female Reproductive History Menstrual Menopause type: surgical Exam Const General: cooperative, anxious and frail appearing Nutritional Appearance: obese Orientation: alert, awake and oriented x3 HENMT Head: normal to inspection, normocephalic and atraumatic Chest Chest: normal inspection of the chest Resp Effort & Inspection: normal respiratory effort Cardio Rate: regular rate Rhythm: regular rhythm GI Inspection: normal to inspection Palpation: soft and nontender Neuro General: patient alert, patient awake, patient oriented x3, moves all extremities and not confused Cranial Nerves: EOM intact bilaterally, no nystagmus, facial strength normal and tongue midline Cognition: normal cognition Speech: speech normal Gait: normal gait Motor: strength abnormal (right sided weakness) Extrem General: normal to inspection and full ROM Course Vital Signs Vital signs: Vital Signs Temperature 36.6 C 09/23/21 17:43 Pulse 79 09/23/21 17:43 Respiratory Rate 14 09/23/21 17:43 Blood Pressure 173/78 H 09/23/21 17:43 Pulse Oximetry 97 09/23/21 17:43 Temperature 36.6 C 09/23/21 17:43 Temperature Source Oral 09/23/21 17:43 Pulse 74 09/23/21 20:31 Respiratory Rate 14 09/23/21 20:31 Respiratory Effort Non-Labored 09/23/21 20:10 Respiratory Depth Normal 09/23/21 20:10 Respiratory Pattern Normal 09/23/21 20:10 Blood Pressure 152/76 H 09/23/21 20:31 Blood Pressure Position Sitting 09/23/21 17:43 Pulse Oximetry 98 09/23/21 20:09 Oxygen Delivery Method Room Air 09/23/21 20:09 Oxygen Flow Rate 0 09/23/21 20:09 Pain Level 0 09/23/21 17:43 Lab/Test Results Lab/Test Results: Laboratory Tests Range/Units 09/23/21 09/23/21 09/23/21 18:40 18:40 19:00 WBC (4.4-10.8) 10^3/uL 8.89 RBC (3.93-5.22) 10^6/uL 4.52 Hgb (11.2-15.7) g/dL 12.9 Hct (36.0-46.0) % 41.3 MCV (80-95) fL 91.4 MCH (27.0-33.0) pg 28.5 MCHC (32.0-36.0) % 31.2 L RDW (11.7-14.6) % 13.6 Plt Count (130-400) 10^3/uL 241 MPV (8.0-11.0) fL 10.2 Immature Gran % 0.2 Neutrophils % 71.4 Lymphocytes % 18.8 Monocytes % 6.9 Eosinophils % 1.8 Basophils % 0.9 Nucleated RBC % % 0 Absolute Neutrophils (1.2-6.7) 10^3/uL 6.35 Absolute Lymphocytes (1.2-3.4) 10^3/uL 1.67 Absolute Monocytes (0.1-0.8) 10^3/uL 0.61 Absolute Eosinophils (0.0-0.7) 10^3/uL 0.16 Absolute Basophils (0.0-0.2) 10^3/uL 0.08 Sodium (136-145) mmol/L 141 Potassium (3.5-5.1) mmol/L 3.7 Chloride (98-107) mmol/L 104 Carbon Dioxide (21.0-32.0) mmol/L 27.9 Anion Gap (3-11) mmol/L 9.1 BUN (7-18) mg/dL 15 Creatinine (0.55-1.02) mg/dL 0.7 Estimated GFR/1.73 m2 (mL/min/1.73m2) >= 60.00 Glucose (74-106) mg/dL 206 H Calcium (8.5-10.1) mg/dL 9.4 Magnesium (1.8-2.4) mg/dL 2.1 Total Bilirubin (0.2-1.0) mg/dL 0.4 AST (15-37) U/L 20 ALT (14-59) U/L 27 Alkaline Phosphatase (46-116) U/L 106 Troponin I (<or=60) ng/L < 50 Total Protein (6.4-8.2) g/dL 7.5 Albumin (3.4-5.0) g/dL 4.0 Urine Color (Yellow) Yellow Urine Clarity (Clear) Clear Urine pH (5-8) 7.0 Ur Specific [place] (1.005-1.025) 1.025 Urine Protein (Negative) mg/dL Negative Urine Ketones (Negative) mg/dL Negative Urine Blood (Negative) Negative Urine Nitrite (Negative) Negative Urine Bilirubin (Negative) Negative Urine Urobilinogen (Up TO 0.2) EU/dL 0.2 Ur Leukocyte Esterase (Negative) Negative Urine Glucose (Negative) mg/dL Negative
--- NOTE | 2021-09-23 21:29 | W.PM.HP.N ---
Date of service: 09/23/21 Time of Service: 21:42 Assessment and Plan Assessment and plan (1) Shortness of breath: Status: Acute Assessment and plan: Etiology of the dyspnea is not clear at this time. I will check a D-dimer. She did not have a pulmonary embolism at the last admission. (2) Headache: Status: Acute Assessment and plan: Her blood pressure is stable at this time. We will admit her on observation and I am going to check a CRP and sed rate now. We will continue on her baseline medicines and watch her blood pressure. History of Present Illness History of Present Illness Chief Complaint: hypertension and symptoms in the right side of the head Narrative: This 76-year-old female is here with elevated blood pressure and symptoms on the right side of her head. She has a history of a 3 strokes in the past according to her . She has been left with a right-sided weakness. She is right-handed. She has generally been taking her blood pressure medicines as prescribed. She was here at the end of August and admitted overnight for atypical chest pain and dyspnea. She had a follow-up stress test and echocardiogram and is awaiting a call from her doctor's office to come in to review the results. She had the tests done the first week of September. She did have a air sampling and monitoring placed but after a week she developed skin problems from the monitor and it was stopped. She measured her blood pressure today was 187/139 home. Usually her blood pressure is 120 systolic. She has felt shaky and has had symptoms on the right side of her head which reminds her of her symptoms around the time of her strokes. She has had this shakiness frequently over the last few weeks. She is also had shortness of breath frequently. She has had a Covid vaccine initial doses and her booster. She not been traveling. She not been around anybody's been sick. She has had no chills or fever but feels hot. His shortness of breath has been present for about a month. She lives with her . She was evaluated emergency department and a call Bautista the nurse practitioner thought she should be admitted for observation. She was given some labetalol because of elevated systolic pressure here. She was given 20 mg intravenously of the labetalol. Review of Systems Constitutional Constitutional: Denies chills, Denies fever(s) and Reports headache(s) Eyes Eyes: Denies change in vision and Denies diplopia ENT Ears, Nose, Mouth, and Throat: Denies dysphagia, Reports headache(s), Reports hearing loss, Denies hoarseness and Denies neck mass Cardiovascular Cardiovascular: Denies chest pain, Denies irregular heart rhythm, Denies palpitations, Reports dyspnea and Reports dyspnea on exertion Respiratory Respiratory: Denies cough, Reports dyspnea and Reports dyspnea on exertion Gastrointestinal Gastrointestinal: Denies dysphagia, Denies heartburn, Denies diarrhea, Denies nausea and Denies vomiting Genitourinary Genitourinary: Denies urinary frequency, Denies difficulty voiding and Reports urinary urgency Neurologic Neurologic: Reports headache(s) Comments: Chronic weakness of the right side. There is been no recent change in meds. Endocrine Endocrine: Denies palpitations PFSH All Active Problems (Updated 09/23/21 @ 21:53 by Dimitri Fuentes MD) Headache (Acute) Hypertensive emergency (Acute) Dyspnea on exertion (Acute) Atypical chest pain (Acute) Chest pain (Acute) Shortness of breath (Acute) Painful orthopaedic hardware (Acute) Status post removal of syndesmotic screw DOS: 04/16/2021 CVA (cerebral vascular accident) (Chronic) Diabetes mellitus (Chronic) COPD without exacerbation (Acute) Neuropathy (Acute) DVT prophylaxis (Acute) Discharge planning issues (Acute) Fever (Acute) Vulvitis (Acute) 06/2020. Unclear etiology. Rx with topical yeast/steroid. 08/2020. punch bx of R vaginal vestibule. 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 Lipoma of extremity (Acute) Arthritis of knee, left (Acute) Depo-Medrol injection: 08/05/2021; 04/29/2021 S/P skin biopsy (Acute) 08/2020. R side of vaginal vestibule. Bimalleolar fracture of right ankle (Acute 03/16/20) March 2020 s/p ORIF Periprosthetic fracture around internal prosthetic right knee joint, initial encounter (Acute 03/16/20) March 2020 s/p ORIF Status post total knee replacement, right (Acute 02/05/19) Dr. Monge Hypertension (Chronic) Active Problem List Dyspnea on exertion (Acute) Atypical chest pain (Acute) Chest pain (Acute) Shortness of breath (Acute) Painful orthopaedic hardware (Acute) CVA (cerebral vascular accident) (Chronic) Diabetes mellitus (Chronic) COPD without exacerbation (Acute) Neuropathy (Acute) DVT prophylaxis (Acute) Discharge planning issues (Acute) Fever (Acute) Vulvitis (Acute) AV block, 1st degree (Acute) Mixed hyperlipidemia (Acute) Sleep apnea (Acute) GERD (gastroesophageal reflux disease) (Chronic) Lumbago with sciatica (Chronic) Lipoma of extremity (Acute) Arthritis of knee, left (Acute) S/P skin biopsy (Acute) Bimalleolar fracture of right ankle (Acute 03/16/20) Periprosthetic fracture around internal prosthetic right knee joint, initial encounter (Acute 03/16/20) Status post total knee replacement, right (Acute 02/05/19) Hypertension (Chronic) Medical History Arthritis of knee, right GI bleed Gout Hiatal hernia History of depression meds in past presently on no rx for depression History of hemorrhagic stroke with residual hemiparesis (R) Hyperlipidemia TIM (obstructive sleep apnea) has used cpap in past presently not using Osteoarthritis Surgical History History of appendectomy History of arthroscopic knee surgery History of colonoscopy History of hysterectomy Family History Father Heart disease Social History Smoking/Tobacco Use Status: Never Smoking risk assessment performed?: Yes Alcohol Intake: never Drug use: Never Substance use type: does not use Household members: significant other Number of Children: 0 current occupation: retired. Pets and animals: No Current gender identity: female What type of physical activity do you participate in: none Seatbelt use: always Do you feel safe at home: Yes Do you feel safe in your relationship?: Yes Female Reproductive History Menstrual Menopause type: surgical Meds Allergies and Home Medications Allergies Allergy/AdvReac Type Severity Reaction Status Date / Time aspirin Allergy Severe GI Bleed Verified 09/23/21 17:50 ibuprofen [From Motrin] Allergy Severe GI Bleed Verified 09/23/21 17:50 Tetracyclines Allergy Severe Makes my Verified 09/23/21 17:50 skin peel and throat close up buspirone Allergy Unknown Verified 09/23/21 17:50 codeine Allergy Unknown Verified 09/23/21 17:50 pentazocine [From Talwin] Allergy Unknown Verified 09/23/21 17:50 sulfamethoxazole Allergy Unknown Verified 09/23/21 17:50 [From Bactrim] trimethoprim [From Bactrim] Allergy Unknown Verified 09/23/21 17:50 ciprofloxacin [From Cipro] AdvReac Severe made my Verified 09/23/21 17:50 stomach bleed duloxetine [From Cymbalta] AdvReac Severe made me Verified 09/23/21 17:50 sick and suicidal prednisone AdvReac Severe Raises BP Verified 09/23/21 17:50 and blood sugar per Pt tramadol AdvReac Severe major GI Verified 09/23/21 17:50 upset oxycodone [From Percocet] AdvReac Unknown Verified 09/23/21 17:50 propoxyphene AdvReac Unknown Verified 09/23/21 17:50 [From Darvocet-N] Home Medications Medication Instructions Recorded Confirmed Type cyanocobalamin (vitamin B-12) 500 500 mcg PO DAILY 07/11/18 08/28/21 History mcg tablet lisinopril 20 mg tablet 20 mg PO BID tab 07/11/18 08/28/21 History multivitamin 1 tab PO DAILY 07/11/18 08/28/21 History albuterol sulfate [Ventolin HFA] 2 puff INHALATION Q6H PRN 06/18/19 08/28/21 History ascorbic acid (vitamin C) [Vitamin 500 mg PO BID #0 tab 03/21/20 08/28/21 Rx C] Co Q-10 300 mg PO DAILY 07/23/20 08/28/21 History acetaminophen [Acetaminophen Extra 500 mg PO Q6H PRN 07/23/20 08/28/21 History Strength] amlodipine 10 mg PO DAILY 07/23/20 08/28/21 History cholecalciferol (vitamin D3) 50 mcg PO DAILY 07/23/20 08/28/21 History [Vitamin D3] gabapentin 300 mg PO TID 07/23/20 08/28/21 History rosuvastatin 10 mg PO DAILY 07/23/20 08/28/21 History famotidine 40 mg PO DAILY #30 tab 07/25/20 08/28/21 Rx labetalol 200 mg tablet 100 mg PO BID tab 09/10/20 08/28/21 History Levemir FlexTouch U-100 Insuln 22 - 24 unit SUBCUT BID 04/15/21 08/28/21 History clopidogrel 75 mg tablet 75 mg PO DAILY #90 tab 08/28/21 Rx alum-mag hydroxide-simeth 30 ml PO Q2H PRN PRN #3000 ml 08/29/21 Rx simethicone [Gas-X Extra Strength] 125 mg PO BID-QID PRN #100 cap 08/29/21 Rx Exam Const General: cooperative, comfortable, no acute distress and well groomed Nutritional Appearance: overweight Orientation: alert and awake [facility] Head: normal to inspection, no palpable skull fracture, normocephalic and atraumatic Ears: hearing grossly impaired Eyes General: appearance normal, both eyes and all related structures Pupils: PERRL EOM: EOM intact bilaterally Neck Neck: normal visual inspection and no lymphadenopathy Resp Effort & Inspection: normal respiratory effort and able to speak in complete sentences Auscultation: no rales and no rhonchi Cardio Jugular venous pressure: no JVD Rate: regular rate Rhythm: regular rhythm Heart Sounds: S1 normal, S2 normal, no gallops and no murmurs GI Inspection: normal to inspection Palpation: soft, no hepatosplenomegaly, not rigid and nontender Skin General skin exam: no rashes or lesions noted Neuro General: patient alert, patient awake, patient oriented x3 and no meningeal signs Cranial Nerves: CN's II-XI intact bilaterally Speech: abnormal speech Other: She does have some drift of right outstretched arm. She has moderate weakness of the right leg and has difficulty lifting up of ER stretcher. Deicer Tester is notably weaker on the right compared to left. Extrem General: normal to inspection, no pedal edema and no calf tenderness Results Labs Result diagrams: 09/23/21 18:40 09/23/21 18:40 Labs: Laboratory Results - last 24 hr 09/23/21 09/23/21 09/23/21 18:40 18:40 19:00 WBC 8.89 RBC 4.52 Hgb 12.9 Hct 41.3 MCV 91.4 MCH 28.5 MCHC 31.2 L RDW 13.6 Plt Count 241 MPV 10.2 Immature Gran % 0.2 Neutrophils % 71.4 Lymphocytes % 18.8 Monocytes % 6.9 Eosinophils % 1.8 Basophils % 0.9 Nucleated RBC % 0 Absolute Neutrophils 6.35 Absolute Lymphocytes 1.67 Absolute Monocytes 0.61 Absolute Eosinophils 0.16 Absolute Basophils 0.08 Sodium 141 Potassium 3.7 Chloride 104 Carbon Dioxide 27.9 Anion Gap 9.1 BUN 15 Creatinine 0.7 Estimated GFR/1.73 m2 >= 60.00 Glucose 206 H Calcium 9.4 Magnesium 2.1 Total Bilirubin 0.4 AST 20 ALT 27 Alkaline Phosphatase 106 Troponin I < 50 Total Protein 7.5 Albumin 4.0 Urine Color Yellow Urine Clarity Clear Urine pH 7.0 Ur Specific [place] 1.025 Urine Protein Negative Urine Ketones Negative Urine Blood Negative Urine Nitrite Negative Urine Bilirubin Negative Urine Urobilinogen 0.2 Ur Leukocyte Esterase Negative Urine Glucose Negative Last Vital Signs Temp 36.6 C 09/23/21 17:43 Pulse 76 09/23/21 21:08 Resp 14 09/23/21 21:08 BP 150/63 H 09/23/21 21:08 Pulse Ox 98 09/23/21 20:09
[2021-09-23 21:30] LABS: Source Nasal/Nares
[2021-09-23 21:38] LABS: ESR 22 mm/hr (0-30)
[2021-09-23 21:45] LABS: C-Reactive Protein 0.52 mg/dL (0.0-0.3)
[2021-09-23 22:09] LABS: COVID-19 PCR Negative (Negative)
[2021-09-23 23:22] LABS: D-Dimer 585 ng/mlFEU (<500)
[2021-09-23] MEDS: Enoxaparin 40 MG/0.4 ML SYR SC (23:53)
[2021-09-23] MEDS: Normal Saline Flush 10 ML SYR IVP (23:53)
[2021-09-24] MEDS: Gabapentin 300 MG CAP PO ×3 (00:01→13:20)
[2021-09-24 03:33] VITALS: BP 150/82; PULSE 60; RESP 18; TEMP 36.6; O2SAT 95
[2021-09-24 07:00] VITALS: PULSE 66
[2021-09-24 07:29] LABS: HCT 40.1 % (36.0-46.0); HGB 12.7 g/dL (11.2-15.7); MCH 29.5 pg (27.0-33.0); MCHC 31.7 % (32.0-36.0); MCV 93.3 fL (80-95); MPV 9.9 fL (8.0-11.0); Platelet Count 223 10^3/uL (130-400); RDW 13.5 % (11.7-14.6); RDW-SD 46.2 fL; WBC 6.44 10^3/uL (4.4-10.8)
[2021-09-24 07:30] VITALS: BP 166/77; PULSE 56; RESP 17; TEMP 36.1; O2SAT 97
[2021-09-24 07:46] LABS: Anion Gap 6.1 mmol/L (3-11); BUN 11 mg/dL (7-18); CO2 33.9 mmol/L (21.0-32.0); CREATININE 0.6 mg/dL (0.55-1.02); Calcium 8.8 mg/dL (8.5-10.1); Chloride 107 mmol/L (98-107); Glucose 112 mg/dL (74-106); Potassium 3.4 mmol/L (3.5-5.1); Sodium 147 mmol/L (136-145)
--- NOTE | 2021-09-24 08:00 | DI.MRI_ITS ---
Exam(s) MR BRAIN WO EXAM: MR BRAIN WO CLINICAL HISTORY: headache, hx of cva TECHNIQUE: Multiplanar multisequence MRI of the brain was performed. COMPARISON: MR MR BRAIN WO from 07/24/[address] HEAD WO from 09/23/2021 FINDINGS: VENTRICLES AND EXTRA AXIAL SPACES: Normal in size and morphology for the patient's age. MIDLINE SHIFT: None. CEREBRAL PARENCHYMA: Old bilateral basal ganglia infarcts. Basal ganglia calcifications. There are few scattered punctate signal voids in the basal ganglia and cerebral hemispheres as well as right ce rebellum, likely reflecting old petechial microhemorrhages . No focus of restricted diffusion to sug gest acute infarct. No space-occupying lesion identified. HEMORRHAGE: None. BRAINSTEM/CEREBELLUM: Normal. CALVARIUM: Hyperostosis frontalis interna. VISUALIZED PARANASAL SINUSES/MASTOIDS:Mucous retention floor of left maxillary sinus, otherwise clear . [place]: Normal flow void. PITUITARY GLAND: Unremarkable. OTHER FINDINGS: Orbits unremarkable. IMPRESSION: Old bilateral basal ganglia lacunar infarcts. No evidence of acute infarct, hemorrhage or mass. DATA REPOSITORY:
[2021-09-24] MEDS: Clopidogrel 75 MG TAB PO (08:06)
[2021-09-24] MEDS: amLODIPine 10 MG TAB PO (08:06)
[2021-09-24] MEDS: Famotidine 20 MG TAB 40 MG PO (08:06)
[2021-09-24] MEDS: Rosuvastatin 10 MG TAB PO (08:07)
[2021-09-24] MEDS: Lisinopril 20 MG TAB PO (08:07)
[2021-09-24] MEDS: Labetalol 100 MG TAB PO (08:07)
--- NOTE | 2021-09-24 08:48 | NUR.NOTE ---
Nursing Note: 0720: this scribe brought clock in to patient's room as there was not one. informed pt that nursing is working on getting a TV for the room; pt states it's okay, I have my tablet and I'm good with that. RN has spoken with maintenance this am following a [employer] for a TV for the room; no TV is currently available to installed in to pt room. working with [facility] to see if there is a TV that might be used for pt.
--- NOTE | 2021-09-24 10:06 | W.PM.DS.N ---
Date of service: 09/24/21 Time of Service: 10:06 DS: Diagnosis Discharge Diagnosis (1) Headache: Status: Acute (2) Hypertension: Status: Chronic Discharge Plan Disposition Patient Disposition: HOME Condition: Stable Discharge Details Reason For Visit: Hypertensive Emergency Admit Date/Time: 09/23/21 21:02 Admit Provider: Dimitri Fuentes Attending Provider: Dimitri Fuentes Primary Care Provider: Ximena Graham Hospital Course Hospital Course: this is a 76 year old female who presented to the ED with headache, elevated blood pressure and shaking. She has history of CVA with similar presentation. Initial concern for hypertensive emergency, CVA, migraine. will initiate routine stroke work up was unremarkable. given phenergan 25 mg for nausea and apap 1000 mg po for headache. CT scan shows microvascular ischemic changes, no acute infarct, hemorrhage or hydrocephalus. blood pressures remain 170-180 systolic, shaking and nausea have improved but still with headache. She was given labetalol 20 mg IVP with improvement in SBP to 150 with further improvement in symptoms. She was admitted to hospitalist services for further monitoring and evaluation. overnight she remained medically stable. she continue to complain or right sided posterior head pain. there was no aggravating or alleviating factors identified. She underwent a MRI brain which showed no evidence of acute stroke. It showed old bilateral basal ganglia lacunar infarcts. No evidence of acute infarct, hemorrhage or mass. she was eating and drinking well. she is stable for discharge to home, no medication changes. she should f/u with her pcp or return sooner for new or worsening symptoms. discharge discussed with DR Hopkins. Home Meds and New Rx's Prescriptions: Continued multivitamin tablet 1 tab PO DAILY RF: 0 lisinopril 20 mg tablet 20 mg PO BID RF: 0 cyanocobalamin (vitamin B-12) [Vitamin B-12] 500 mcg tablet 500 mcg PO DAILY RF: 0 labetalol 200 mg tablet 100 mg PO BID RF: 0 clopidogrel [Plavix] 75 mg tablet 75 mg PO DAILY Qty: 90 RF: 0 albuterol sulfate [Ventolin HFA] 90 mcg/actuation Hfa Aerosol Inhaler 2 puff INHALATION Q6H PRNRF: 0 ascorbic acid (vitamin C) [Vitamin C] 500 mg Tablet 500 mg PO BID Qty: 0 RF: 0 acetaminophen [Acetaminophen Extra Strength] 500 mg Tablet 500 mg PO Q6H PRNRF: 0 amlodipine 10 mg tablet 10 mg PO DAILY RF: 0 rosuvastatin 10 mg tablet 10 mg PO DAILY RF: 0 Co Q-10 300 mg Capsule 300 mg PO DAILY RF: 0 cholecalciferol (vitamin D3) [Vitamin D3] 50 mcg (2,000 unit) Capsule 50 mcg PO DAILY RF: 0 gabapentin 300 mg capsule 300 mg PO TID PRNRF: 0 famotidine 40 mg tablet 40 mg PO DAILY Qty: 30 RF: 0 Levemir FlexTouch U-100 Insuln 100 unit/mL (3 mL) insulin pen 22 - 24 unit SUBCUT BID RF: 0 alum-mag hydroxide-simeth 200-200-20 mg/5 mL suspension 30 ml PO Q2H PRN PRNQty: 3000 RF: 0 simethicone [Gas-X Extra Strength] 125 mg capsule 125 mg PO BID-QID PRNQty: 100 RF: 0 Discharge Instructions Instructions: Hypertension (DC) Additional Instructions: take all medication as directed. Stand Alone Forms: Nursing Discharge Form Referrals: Ximena Graham [Primary Care Provider] - 10/08/21 10:15 am Activity:: Activity as Tolerated Equipment/Supplies:: No Equipment Needed Diet:: As Tolerated Discharge Orders Discharge Orders: Discharge Order (Routine); Ordered 09/24/21 Ordered By: Aicha Bautista Discharge Data Discharge Date/Time-TO BE ENTERED AT DEPARTURE: 09/24/21 14:36 DS: Summary Time Spent with Patient providing and/or coordinating discharge services: Less than 30 minutes Status at Discharge Functional status at discharge: independent ambulation Overall status at discharge: patient is progressing back to baseline Mental Status: mental status grossly normal Speech and Movement: speech and movement normal Mood: congruent mood Affect: normal affect Exam Const General: cooperative, anxious and frail appearing Nutritional Appearance: obese Orientation: alert, awake and oriented x3 HENMT Head: normal to inspection, normocephalic and atraumatic Chest Chest: normal inspection of the chest Resp Effort & Inspection: normal respiratory effort Cardio Rate: regular rate Rhythm: regular rhythm GI Inspection: normal to inspection Palpation: soft and nontender Neuro General: patient alert, patient awake, patient oriented x3, moves all extremities and not confused Cranial Nerves: EOM intact bilaterally, no nystagmus, facial strength normal and tongue midline Cognition: normal cognition Speech: speech normal Gait: normal gait Motor: strength abnormal (right sided weakness) Extrem General: normal to inspection and full ROM Psych Mental Status: mental status grossly normal Speech and Movement: speech and movement normal Mood: congruent mood Affect: normal affect DS: Data Vitals/I&O Vitals and I&O: Vital Signs Temperature 36.1 C L 09/24/21 07:30 Temperature Source Tympanic 09/24/21 07:30 Pulse 56 L 09/24/21 07:30 Pulse Rhythm Regular 09/23/21 23:27 Respiratory Rate 17 09/24/21 07:30 Respiratory Effort 09/23/21 23:27 Respiratory Depth Normal 09/23/21 23:27 Respiratory Pattern Irregular 09/23/21 23:27 Blood Pressure 166/77 H 09/24/21 07:30 Blood Pressure Position Sitting 09/23/21 17:43 Pulse Oximetry 97 09/24/21 07:30 Oxygen Delivery Method Room Air 09/24/21 07:30 Oxygen Flow Rate 0 09/24/21 07:30 Pain Level 0 09/24/21 07:30 Comment 09/24/21 07:30 Intake & Output 09/23/21 09/23/21 09/24/21 11:59 23:59 11:59 Intake Total Balance Weight 98.3 kg Intake: IV Other: Urine Color Pale Urine Appearance Clear Comment unable to assess pt flushed it Voided in toilet but missed hat-unable to measure output Voiding Methods Toilet Data Completed and Pending Labs on day of discharge: Labs from last 24 hours 09/24/21 09/24/21 09/23/21 07:00 07:00 22:45 WBC 6.44 RBC 4.30 Hgb 12.7 Hct 40.1 MCV 93.3 MCH 29.5 MCHC 31.7 L RDW 13.5 Plt Count 223 MPV 9.9 Immature Gran % Neutrophils % Lymphocytes % Monocytes % Eosinophils % Basophils % Nucleated RBC % Absolute Neutrophils Absolute Lymphocytes Absolute Monocytes Absolute Eosinophils Absolute Basophils ESR D-Dimer 585 H Sodium 147 H Potassium 3.4 L Chloride 107 Carbon Dioxide 33.9 H Anion Gap 6.1 BUN 11 Creatinine 0.6 Estimated GFR/1.73 m2 >= 60.00 Glucose 112 H D Calcium 8.8 Magnesium Total Bilirubin AST ALT Alkaline Phosphatase Troponin I C-Reactive Protein Total Protein Albumin Urine Color Urine Clarity Urine pH Ur Specific Carbon Urine Protein Urine Ketones Urine Blood Urine Nitrite Urine Bilirubin Urine Urobilinogen Ur Leukocyte Esterase Urine Glucose COVID-19 Source SARS-CoV-2 (PCR) 09/23/21 09/23/21 09/23/21 22:25 21:23 19:00 WBC Cancelled RBC Cancelled Hgb Cancelled Hct Cancelled MCV Cancelled MCH Cancelled MCHC Cancelled RDW Cancelled Plt Count Cancelled MPV Cancelled Immature Gran % Neutrophils % Lymphocytes % Monocytes % Eosinophils % Basophils % Nucleated RBC % Absolute Neutrophils Absolute Lymphocytes Absolute Monocytes Absolute Eosinophils Absolute Basophils ESR D-Dimer Sodium Potassium Chloride Carbon Dioxide Anion Gap BUN Creatinine Estimated GFR/1.73 m2 Glucose Calcium Magnesium Total Bilirubin AST ALT Alkaline Phosphatase Troponin I C-Reactive Protein Total Protein Albumin Urine Color Yellow Urine Clarity Clear Urine pH 7.0 Ur Specific Carbon 1.025 Urine Protein Negative Urine Ketones Negative Urine Blood Negative Urine Nitrite Negative Urine Bilirubin Negative Urine Urobilinogen 0.2 Ur Leukocyte Esterase Negative Urine Glucose Negative COVID-19 Source Nasal/Nares SARS-CoV-2 (PCR) Negative 09/23/21 09/23/21 09/23/21 18:40 18:40 18:40 WBC 8.89 RBC 4.52 Hgb 12.9 Hct 41.3 MCV 91.4 MCH 28.5 MCHC 31.2 L RDW 13.6 Plt Count 241 MPV 10.2 Immature Gran % 0.2 Neutrophils % 71.4 Lymphocytes % 18.8 Monocytes % 6.9 Eosinophils % 1.8 Basophils % 0.9 Nucleated RBC % 0 Absolute Neutrophils 6.35 Absolute Lymphocytes 1.67 Absolute Monocytes 0.61 Absolute Eosinophils 0.16 Absolute Basophils 0.08 ESR 22 D-Dimer Sodium Potassium Chloride Carbon Dioxide Anion Gap BUN Creatinine Estimated GFR/1.73 m2 Glucose Calcium Magnesium Total Bilirubin AST ALT Alkaline Phosphatase Troponin I C-Reactive Protein 0.52 H Total Protein Albumin Urine Color Urine Clarity Urine pH Ur Specific Carbon Urine Protein Urine Ketones Urine Blood Urine Nitrite Urine Bilirubin Urine Urobilinogen Ur Leukocyte Esterase Urine Glucose COVID-19 Source SARS-CoV-2 (PCR) 09/23/21 18:40 WBC RBC Hgb Hct MCV MCH MCHC RDW Plt Count MPV Immature Gran % Neutrophils % Lymphocytes % Monocytes % Eosinophils % Basophils % Nucleated RBC % Absolute Neutrophils Absolute Lymphocytes Absolute Monocytes Absolute Eosinophils Absolute Basophils ESR D-Dimer Sodium 141 Potassium 3.7 Chloride 104 Carbon Dioxide 27.9 Anion Gap 9.1 BUN 15 Creatinine 0.7 Estimated GFR/1.73 m2 >= 60.00 Glucose 206 H Calcium 9.4 Magnesium 2.1 Total Bilirubin 0.4 AST 20 ALT 27 Alkaline Phosphatase 106 Troponin I < 50 C-Reactive Protein Total Protein 7.5 Albumin 4.0 Urine Color Urine Clarity Urine pH Ur Specific Carbon Urine Protein Urine Ketones Urine Blood Urine Nitrite Urine Bilirubin Urine Urobilinogen Ur Leukocyte Esterase Urine Glucose COVID-19 Source SARS-CoV-2 (PCR) PFS All Active Problems (Updated 09/23/21 @ 21:53 by Dimitri Fuentes MD) Headache (Acute) Hypertensive emergency (Acute) Dyspnea on exertion (Acute) Atypical chest pain (Acute) Chest pain (Acute) Shortness of breath (Acute) Painful orthopaedic hardware (Acute) Status post removal of syndesmotic screw DOS: 04/16/2021 CVA (cerebral vascular accident) (Chronic) Diabetes mellitus (Chronic) COPD without exacerbation (Acute) Neuropathy (Acute) DVT prophylaxis (Acute) Discharge planning issues (Acute) Fever (Acute) Vulvitis (Acute) 06/2020. Unclear etiology. Rx with topical yeast/steroid. 08/2020. punch bx of R vaginal vestibule. 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 Lipoma of extremity (Acute) Arthritis of knee, left (Acute) Depo-Medrol injection: 08/05/2021; 04/29/2021 S/P skin biopsy (Acute) 08/2020. R side of vaginal vestibule. Bimalleolar fracture of right ankle (Acute 03/16/20) March 2020 s/p ORIF Periprosthetic fracture around internal prosthetic right knee joint, initial encounter (Acute 03/16/20) March 2020 s/p ORIF Status post total knee replacement, right (Acute 02/05/19) Dr. Monge Hypertension (Chronic) Active Problem List Dyspnea on exertion (Acute) Atypical chest pain (Acute) Chest pain (Acute) Shortness of breath (Acute) Painful orthopaedic hardware (Acute) CVA (cerebral vascular accident) (Chronic) Diabetes mellitus (Chronic) COPD without exacerbation (Acute) Neuropathy (Acute) DVT prophylaxis (Acute) Discharge planning issues (Acute) Fever (Acute) Vulvitis (Acute) AV block, 1st degree (Acute) Mixed hyperlipidemia (Acute) Sleep apnea (Acute) GERD (gastroesophageal reflux disease) (Chronic) Lumbago with sciatica (Chronic) Lipoma of extremity (Acute) Arthritis of knee, left (Acute) S/P skin biopsy (Acute) Bimalleolar fracture of right ankle (Acute 03/16/20) Periprosthetic fracture around internal prosthetic right knee joint, initial encounter (Acute 03/16/20) Status post total knee replacement, right (Acute 02/05/19) Hypertension (Chronic) Medical History Arthritis of knee, right GI bleed Gout Hiatal hernia History of depression meds in past presently on no rx for depression History of hemorrhagic stroke with residual hemiparesis (R) Hyperlipidemia TIM (obstructive sleep apnea) has used cpap in past presently not using Osteoarthritis Surgical History History of appendectomy History of arthroscopic knee surgery History of colonoscopy History of hysterectomy Family History Father Heart disease Social History Smoking/Tobacco Use Status: Never Smoking risk assessment performed?: Yes Alcohol Intake: never Drug use: Never Substance use type: does not use Household members: significant other Number of Children: 0 current occupation: retired. Pets and animals: No Current gender identity: female What type of physical activity do you participate in: none Seatbelt use: always Do you feel safe at home: Yes Do you feel safe in your relationship?: Yes Female Reproductive History Menstrual Menopause type: surgical
[2021-09-24] MEDS: LORazepam 0.5 MG TAB PO (10:23)
[2021-09-24 12:47] VITALS: BP 129/83; PULSE 60; RESP 16; TEMP 36.3; O2SAT 99
[2021-09-24 15:34] VITALS: PULSE 65
== END 2021-09-24 14:36 | disposition home or self-care (01) ==
LOC: ER 23:08 → MS 23:10
PROVIDERS: Admitting Provider Family Medicine; Emergency Provider Nurse Practitioner Acute Care; PCP Nurse Practitioner Family; Visit Provider Family Medicine
DX: I16.1 Hypertensive emergency (principal); R06.02 Shortness of breath; R51.9 Headache, unspecified; I10 Essential (primary) hypertension; I69.351 Hemiplegia and hemiparesis following cerebral infarction affecting right dominant side; E11.9 Type 2 diabetes mellitus without complications; J44.9 Chronic obstructive pulmonary disease, unspecified; R07.89 Other chest pain; G62.9 Polyneuropathy, unspecified; K21.9 Gastro-esophageal reflux disease without esophagitis; M54.42 Lumbago with sciatica, left side; M54.41 Lumbago with sciatica, right side
CPT/HCPCS: 36415; 80048; 80053; 85027; 85652; 87635; 93005; J1650; 70450; 70551; 81003; 83735; 84484; 85025; 85379; 86140; 93010; 99217; 99219; G0378; J3490

== ENCOUNTER 2021-10-16 01:57 | Outpatient (CLI) | payer MEDICARE, OTHER, SELFPAY ==
--- NOTE | 2021-10-16 | DI.RAD_ITS ---
Exam(s) XR CERVICAL SP COMP W FLEX/EXT EXAM: XR CERVICAL SP COMP W FLEX/EXT CLINICAL HISTORY: RT NECK PAIN AND SHOULDER PAIN, M54.2. TECHNIQUE: 2D digital imaging was performed. COMPARISON: No exams were available for comparison FINDINGS: There is no evidence of fracture nor disc space narrowing. There is mild anterolisthesis of C6 upon C7 which is related to facet degenerative changes. Also mild degenerative anterolisthesis of C5 upon C6 no prevertebral soft tissue swelling. On the oblique views there are small bilateral Luschka elvira nt osteophytes at C5-6 level noted. There are no cervical ribs. No osseous lesions. IMPRESSION: No fracture nor disc space narrowing. Mild degenerative anterolisthesis of C5 on C6 and C6 on C7. Incidentally noted is a calcific density in left side of neck which may indicate atherosclerotic plaq ue at the carotid bifurcation. If clinically indicated further study with Doppler imaging can be per formed. DATA REPOSITORY: RADIATION DOSE DELIVERED:
--- NOTE | 2021-10-16 | DI.RAD_ITS ---
Exam(s) XR SHOULDER RT COMPLETE 2+V EXAM: XR SHOULDER RT COMPLETE 2+V CLINICAL HISTORY: RT SHOULDER PAIN, M25.511. TECHNIQUE: 2D digital imaging was performed. COMPARISON: CR,XR XR PORTABLE CHEST AP from 08/28/2021 FINDINGS: Is no evidence of fracture or dislocation of head. However, there is an osteophytic density measurin g 4 x 3 millimeters just below the osseous glenoid and slightly medial to its inferior articular surf maribel. There is no soft tissue calcification adjacent to the nearby humeral neck. There are minimal degenerative changes in the glenohumeral and AC joints. No calcifications subacrom ial space. Ipsilateral clavicle appears intact. IMPRESSION: There is a 4 x 3 millimeter calcific density subjacent to the osseous glenoid. This may represent a small loose intra-articular body at this location or may be related to prior Bankart-type variant inj ury. DATA REPOSITORY: RADIATION DOSE DELIVERED:
== END 2021-10-16 02:17 ==
PROVIDERS: PCP Nurse Practitioner Family; Visit Provider Nurse Practitioner Family
DX: M54.2 Cervicalgia (principal); M43.12 Spondylolisthesis, cervical region; M25.511 Pain in right shoulder; R93.6 Abnormal findings on diagnostic imaging of limbs
CPT/HCPCS: 72052; 73030

== ENCOUNTER 2021-10-21 20:17 | Emergency (ER) | payer MEDICARE, OTHER, SELFPAY ==
[2021-10-21] VITALS (13 sets, daily range): BP systolic 147–185; BP diastolic 59–98; PULSE 64–78; RESP 13–25; TEMP 36.6; O2SAT 93–98
--- NOTE | 2021-10-21 20:15 | RT.EKG_ITS ---
APPROVED REPORT Exam: Resting ECG Reason for Exam: chest pain Patient Location: E HR:69 bpm ECG Measurements Heart Rate 69 AXIS TN 249 P 19 QRSd 100 QRS 1 QT 433 T 71 QTc 465 Conclusion Sinus rhythm. Prolonged TN interval...TN >220 Low voltage, precordial leads.
--- NOTE | 2021-10-21 20:57 | ED.GENADUL_ITS ---
Discharge Plan Disposition Patient Disposition: HOME Condition: Stable Discharge Details Clinical Impression: Chest pain Primary Care Provider: Ximena Graham ED Provider: Silvina Winn Home Meds and New Rx's Prescriptions: Continued multivitamin tablet 1 tab PO DAILY RF: 0 lisinopril 20 mg tablet 20 mg PO BID RF: 0 cyanocobalamin (vitamin B-12) [Vitamin B-12] 500 mcg tablet 500 mcg PO DAILY RF: 0 labetalol 200 mg tablet 100 mg PO BID RF: 0 clopidogrel [Plavix] 75 mg tablet 75 mg PO DAILY Qty: 90 RF: 0 albuterol sulfate [Ventolin HFA] 90 mcg/actuation Hfa Aerosol Inhaler 2 puff INHALATION Q6H PRNRF: 0 ascorbic acid (vitamin C) [Vitamin C] 500 mg Tablet 500 mg PO BID Qty: 0 RF: 0 acetaminophen [Acetaminophen Extra Strength] 500 mg Tablet 500 mg PO Q6H PRNRF: 0 amlodipine 10 mg tablet 10 mg PO DAILY RF: 0 rosuvastatin 10 mg tablet 10 mg PO DAILY RF: 0 Co Q-10 300 mg Capsule 300 mg PO DAILY RF: 0 cholecalciferol (vitamin D3) [Vitamin D3] 50 mcg (2,000 unit) Capsule 50 mcg PO DAILY RF: 0 gabapentin 300 mg capsule 300 mg PO TID PRNRF: 0 famotidine 40 mg tablet 40 mg PO DAILY Qty: 30 RF: 0 Levemir FlexTouch U-100 Insuln 100 unit/mL (3 mL) insulin pen 22 - 24 unit SUBCUT BID RF: 0 alum-mag hydroxide-simeth 200-200-20 mg/5 mL suspension 30 ml PO Q2H PRN PRNQty: 3000 RF: 0 simethicone [Gas-X Extra Strength] 125 mg capsule 125 mg PO BID-QID PRNQty: 100 RF: 0 Discharge Instructions Instructions: Chest Pain (ED) Additional Instructions: Follow up with primary care provider in 3-5 days. Return to ED sooner if any worsening or concerns. Increase oral fluids. Please follow-up with cardiology and/or your PCP to discuss further evaluation. Today the cardiac work-up is largely within normal limits. Referrals: Ximena Graham [Primary Care Provider] - 3 days Discharge Data Discharge Date/Time-TO BE ENTERED AT DEPARTURE: 10/22/21 00:38 Medical Decision Making 76-year-old female past medical history of CVA with left-sided residual hemiparesis, diabetes mellitus, COPD, first-degree AV block, TIA, hypertension presents to the ER with a chief complaint of sharp left-sided chest pain with radiation into her left shoulder which began suddenly while watching TV this evening. Patient reports she then felt her blood pressure elevating she did take an extra one of her labetalol prior to arrival and it brought her blood pressure down. She then reports some uncontrollable shaking. She is alert and oriented, she has not complained of headache or blurry vision. She also reports some nausea and one episode of vomiting prior to arrival. Cardiac work-up ordered including serial troponins, EKG. EKG was reviewed by Dr. Romie Shipley ER attending, old EKG available for review. FINDINGS: Lungs: No significant consolidation or collapse. Pulmonary vessels are not c ongested. Lung volumes are low. Pleural spaces: Unremarkable. No pleural effusion. No pneumothorax. Heart/Mediastinum: Prominence of the mediastinum is unchanged, and corresponds to vascular structures as shown on CT. Mild cardiomegaly. Bones/joints: Unremarkable. IMPRESSION: No acute cardiopulmonary abnormality. Patient reevaluation, she reports that she feels much better. Blood pressure has decreased to 150 systolic. Informed of serial troponin patient is willing to wait for the second blood draw. 0.5 mg of lorazepam ordered for possible anxiety. Work up largely unremarkable, Serial Troponin WNL. Patient discharged home with follow up with PCP and strict return instructions. HPI General Mode of arrival: wheelchair . Date/Time Provider Initiated Documentation: 10/21/21 20:27 . Limitations to Documentation: no limitations . Information obtained by: patient, RN notes reviewed and old records reviewed . HPI Narrative: 76-year-old female past medical history of CVA with left-sided residual hemiparesis, diabetes mellitus, COPD, first-degree AV block, TIA, hypertension presents to the ER with a chief complaint of sharp left-sided chest pain with radiation into her left shoulder which began suddenly while watching TV this evening. Patient reports she then felt her blood pressure elevating she did take an extra one of her labetalol prior to arrival and it brought her blood pressure down. She then reports some uncontrollable shaking. She is alert and oriented, she has not complained of headache or blurry vision. She also reports some nausea and one episode of vomiting prior to arrival. Related Data Home Medications Medication Instructions Recorded Confirmed cyanocobalamin (vitamin B-12) 500 500 mcg PO DAILY 07/11/18 10/21/21 mcg tablet lisinopril 20 mg tablet 20 mg PO BID tab 07/11/18 10/21/21 multivitamin 1 tab PO DAILY 07/11/18 10/21/21 albuterol sulfate [Ventolin HFA] 2 puff INHALATION Q6H PRN 06/18/19 10/21/21 ascorbic acid (vitamin C) [Vitamin 500 mg PO BID #0 tab 03/21/20 10/21/21 C] Co Q-10 300 mg PO DAILY 07/23/20 10/21/21 acetaminophen [Acetaminophen Extra 500 mg PO Q6H PRN 07/23/20 10/21/21 Strength] amlodipine 10 mg PO DAILY 07/23/20 10/21/21 cholecalciferol (vitamin D3) 50 mcg PO DAILY 07/23/20 10/21/21 [Vitamin D3] gabapentin 300 mg PO TID PRN 07/23/20 10/21/21 rosuvastatin 10 mg PO DAILY 07/23/20 10/21/21 famotidine 40 mg PO DAILY #30 tab 07/25/20 10/21/21 labetalol 200 mg tablet 100 mg PO BID tab 09/10/20 10/21/21 Levemir FlexTouch U-100 Insuln 22 - 24 unit SUBCUT BID 04/15/21 10/21/21 clopidogrel 75 mg tablet 75 mg PO DAILY #90 tab 08/28/21 10/21/21 alum-mag hydroxide-simeth 30 ml PO Q2H PRN PRN #3000 ml 08/29/21 10/21/21 simethicone [Gas-X Extra Strength] 125 mg PO BID-QID PRN #100 cap 08/29/21 10/21/21 Previous Rx's Medication Instructions Recorded ascorbic acid (vitamin C) [Vitamin 500 mg PO BID #0 tab 03/21/20 C] famotidine 40 mg PO DAILY #30 tab 07/25/20 clopidogrel 75 mg tablet 75 mg PO DAILY #90 tab 08/28/21 alum-mag hydroxide-simeth 30 ml PO Q2H PRN PRN #3000 ml 08/29/21 simethicone [Gas-X Extra Strength] 125 mg PO BID-QID PRN #100 cap 08/29/21 Allergies Allergy/AdvReac Type Severity Reaction Status Date / Time aspirin Allergy Severe GI Bleed Verified 10/21/21 20:30 ibuprofen [From Motrin] Allergy Severe GI Bleed Verified 10/21/21 20:30 Tetracyclines Allergy Severe Makes my Verified 10/21/21 20:30 skin peel and throat close up buspirone Allergy Unknown Verified 10/21/21 20:30 codeine Allergy Unknown Verified 10/21/21 20:30 pentazocine [From Talwin] Allergy Unknown Verified 10/21/21 20:30 sulfamethoxazole Allergy Unknown Verified 10/21/21 20:30 [From Bactrim] trimethoprim [From Bactrim] Allergy Unknown Verified 10/21/21 20:30 ciprofloxacin [From Cipro] AdvReac Severe made my Verified 10/21/21 20:30 stomach bleed duloxetine [From Cymbalta] AdvReac Severe made me Verified 10/21/21 20:30 sick and suicidal prednisone AdvReac Severe Raises BP Verified 10/21/21 20:30 and blood sugar per Pt tramadol AdvReac Severe major GI Verified 10/21/21 20:30 upset oxycodone [From Percocet] AdvReac Unknown Verified 10/21/21 20:30 propoxyphene AdvReac Unknown Verified 10/21/21 20:30 [From Darvocet-N] General Stated Complaint: Chest Pain RADHA: 2 Review of Systems All systems reviewed & are unremarkable except as noted in HPI and below Cardiovascular Cardiovascular: Reports chest pain at rest and Reports radiating jaw, neck or arm pain Respiratory Respiratory: Denies cough and Denies hemoptysis Gastrointestinal Gastrointestinal: Reports nausea and Reports vomiting PFSH All Active Problems (Updated 10/21/21 @ 23:44 by Silvina Winn) Dyspnea on exertion (Acute) Atypical chest pain (Acute) Chest pain (Acute) Painful orthopaedic hardware (Acute) Status post removal of syndesmotic screw DOS: 04/16/2021 CVA (cerebral vascular accident) (Chronic) Diabetes mellitus (Chronic) COPD without exacerbation (Acute) Neuropathy (Acute) DVT prophylaxis (Acute) Discharge planning issues (Acute) Fever (Acute) Vulvitis (Acute) 06/2020. Unclear etiology. Rx with topical yeast/steroid. 08/2020. punch bx of R vaginal vestibule. 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 Lipoma of extremity (Acute) Arthritis of knee, left (Acute) Depo-Medrol injection: 08/05/2021; 04/29/2021 S/P skin biopsy (Acute) 08/2020. R side of vaginal vestibule. Bimalleolar fracture of right ankle (Acute 03/16/20) March 2020 s/p ORIF Periprosthetic fracture around internal prosthetic right knee joint, initial encounter (Acute 03/16/20) March 2020 s/p ORIF Status post total knee replacement, right (Acute 02/05/19) Dr. Monge Hypertension (Chronic) Medical History Arthritis of knee, right GI bleed Gout Headache Hiatal hernia History of depression meds in past presently on no rx for depression History of hemorrhagic stroke with residual hemiparesis (R) Hyperlipidemia TIM (obstructive sleep apnea) has used cpap in past presently not using Osteoarthritis Surgical History History of appendectomy History of arthroscopic knee surgery History of colonoscopy History of hysterectomy Family History Father Heart disease Social History Smoking/Tobacco Use Status: Never Smoking risk assessment performed?: Yes Alcohol Intake: never Drug use: Never Substance use type: does not use Household members: significant other Number of Children: 0 current occupation: retired. Pets and animals: No Current gender identity: female What type of physical activity do you participate in: none Seatbelt use: always Do you feel safe at home: Yes Do you feel safe in your relationship?: Yes Female Reproductive History Menstrual Menopause type: surgical Exam Narrative Exam Narrative: Constitutional: Alert and oriented x3. Appears stated age. Normal body habitus. Head: Normocephalic, no trauma. Eyes: Pupils PERRL, Red reflex noted, EOM's intact. Eyelids symmetrical without lesions, discharge, or swelling. ENT: Bilateral TM's WNL, External ear normal to inspection, no mastoid TTP, swelling, or erythema, Nasal turbinates WNL, no nasal discharge. Normal dent ition, Posterior pharynx WNL, no exudate. Chest: RRR, Normal S1, S2, distal pulses intact. Resp: Lungs clear to auscultation bilaterally, no wheezes, rales, or rhonchi. Abdomen: Soft, non-distended, Normoactive bowel sounds all 4 quads. Musculoskeletal: Normal gait, 5/5 strength to all four extremities. Skin: No suspicious rashes or lesions. Capillary refill less than 2 sec. Neurologic: Cranial nerves II-XII intact. Alert and oriented x 3. Motor: No deficits noted. Sensory: Intact bilaterally all 4 extremities. Reflexes: DTR's intact bilaterally.. Hematologic/Lymphatic: No ecchymosis, no lymphadenopathy. Course Vital Signs Vital signs: Vital Signs Temperature 36.6 C 10/21/21 20:25 Pulse 68 10/21/21 20:25 Respiratory Rate 20 10/21/21 20:25 Blood Pressure 165/98 H 10/21/21 20:25 Pulse Oximetry 96 10/21/21 20:25 Temperature 36.6 C 10/21/21 20:25 Temperature Source Skin 10/21/21 20:25 Pulse 69 10/21/21 20:46 Pulse 70 10/21/21 20:46 Respiratory Rate 18 10/21/21 20:46 Respiratory Effort 10/21/21 20:35 Respiratory Depth Normal 10/21/21 20:35 Respiratory Pattern Normal 10/21/21 20:35 Blood Pressure 177/67 H 10/21/21 20:46 Blood Pressure Mean 95 10/21/21 20:46 Pulse Oximetry 96 10/21/21 20:46 Oxygen Delivery Method Room Air 10/21/21 20:25 Oxygen Flow Rate 0 10/21/21 20:25 Pain Level 6 10/21/21 20:25 Comment 10/21/21 20:25
--- NOTE | 2021-10-21 21:00 | DI.RAD_ITS ---
Exam(s) XR CHEST 2V PA LATERAL EXAM: XR CHEST 2V PA LATERAL CLINICAL HISTORY: chest Pain. TECHNIQUE: 2D digital imaging was performed. COMPARISON: CR,XR XR PORTABLE CHEST AP from 08/28/2021 FINDINGS: Cardiomegaly again noted. Mediastinum unchanged. Lungs are clear. No infiltrates nor pleural effusions. IMPRESSION: No acute pulmonary findings. DATA REPOSITORY: RADIATION DOSE DELIVERED:
[2021-10-21 21:10] LABS: Abs Immature Grans 0.02 10^3/uL (0.0-0.06); Absolute Basophil Count 0.07 10^3/uL (0.0-0.2); Absolute Eosinophil Count 0.18 10^3/uL (0.0-0.7); Absolute Lymphocyte Count 1.79 10^3/uL (1.2-3.4); Absolute Monocyte Count 0.55 10^3/uL (0.1-0.8); Eosinophils % 2.5; HCT 45.4 % (36.0-46.0); HGB 14.4 g/dL (11.2-15.7); Immature Grans % 0.3; Lymphocytes % 24.5; MCHC 31.7 % (32.0-36.0); MCV 91.5 fL (80-95); MPV 10.1 fL (8.0-11.0); Monocytes % 7.5; Neutrophils % 64.2; Nucleated RBC 0 %; Platelet Count 257 10^3/uL (130-400); RBC 4.96 10^6/uL (3.93-5.22); RDW 13.5 % (11.7-14.6); RDW-SD 45.8 fL; WBC 7.31 10^3/uL (4.4-10.8)
--- NOTE | 2021-10-21 21:44 | DI.VRAD_ITS ---
PROCEDURE INFORMATION: Exam: XR Chest Exam date and time: 10/21/2021 9:06 PM Age: 76 years old Clinical indication: Other: Chest pain; Chest pressure TECHNIQUE: Imaging protocol: XR of the chest. Views: 2 views. COMPARISON: 1. XR PORTABLE CHEST AP 08/28/2021 5:[address] THORAX ABD/PEL CTA 08/28/2021 7:32 PM FINDINGS: Lungs: No significant consolidation or collapse. Pulmonary vessels are not congested. Lung volumes are low. Pleural spaces: Unremarkable. No pleural effusion. No pneumothorax. Heart/Mediastinum: Prominence of the mediastinum is unchanged, and corresponds to vascular structures as shown on CT. Mild cardiomegaly. Bones/joints: Unremarkable. IMPRESSION: No acute cardiopulmonary abnormality. Dictated and Authenticated by: Balbir Altamirano MD. Ordering:GAVIN Cool MD
[2021-10-21 21:58] LABS: ALT 26 U/L (14-59); AST 14 U/L (15-37); Albumin 3.7 g/dL (3.4-5.0); Alkaline Phosphatase 119 U/L (46-116); Anion Gap 7.9 mmol/L (3-11); BUN 12 mg/dL (7-18); Bilirubin, Total 0.5 mg/dL (0.2-1.0); CO2 28.1 mmol/L (21.0-32.0); CREATININE 0.6 mg/dL (0.55-1.02); Calcium 8.9 mg/dL (8.5-10.1); Chloride 105 mmol/L (98-107); Glucose 172 mg/dL (74-106); Magnesium 1.9 mg/dL (1.8-2.4); Potassium 3.5 mmol/L (3.5-5.1); Sodium 141 mmol/L (136-145); Total Protein 7.2 g/dL (6.4-8.2); Troponin I < 50 ng/L (<or=60)
[2021-10-21] MEDS: LORazepam 0.5 MG TAB PO (22:21)
--- NOTE | 2021-10-21 23:30 | RT.EKG_ITS ---
APPROVED REPORT Exam: Resting ECG Reason for Exam: chest pain Patient Location: E HR:65 bpm ECG Measurements Heart Rate 65 AXIS OK 245 P 17 QRSd 97 QRS -18 QT 456 T 79 QTc 476 Conclusion Sinus rhythm...normal P axis, V-rate 60- 99 Prolonged OK interval...OK >220, V-rate 50- 90 Low voltage, precordial leads...precordial leads <1.0mV Probable LVH with secondary repol abnrm...multiple LVH criteria There are no significant changes compared to prior EKG performed on 09/23/2021 at 18:01.
[2021-10-22 00:28] LABS: Troponin I < 50 ng/L (<or=60)
== END 2021-10-22 00:38 | disposition home or self-care (01) ==
PROVIDERS: Emergency Provider Registered Nurse Emergency; PCP Nurse Practitioner Family
DX: R07.9 Chest pain, unspecified (principal); R25.1 Tremor, unspecified; I10 Essential (primary) hypertension
CPT/HCPCS: 36415; 80053; 93005; 99284; 71046; 83735; 84484; 85025; 85610; 85730; 93010; 99283

== ENCOUNTER 2021-11-02 15:07 | Outpatient (REF) | payer MEDICARE, OTHER, SELFPAY ==
[2021-11-02 21:47] LABS: Anion Gap 10.7 mmol/L (3-11); BUN 14 mg/dL (7-18); CO2 28.3 mmol/L (21.0-32.0); CREATININE 0.8 mg/dL (0.55-1.02); Calcium 9.6 mg/dL (8.5-10.1); Chloride 102 mmol/L (98-107); Glucose 183 mg/dL (74-106); Potassium 4.2 mmol/L (3.5-5.1); Sodium 141 mmol/L (136-145)
[2021-11-02 22:02] LABS: Calculated LDL 70 mg/dL (<100); Cholesterol 154 mg/dL (<200); HDL Cholesterol 48 mg/dL (40-60); Triglyceride 180 mg/dL (<150)
== END 2021-11-02 15:08 | disposition home or self-care (01) ==
LOC: NCHCN 15:07
PROVIDERS: PCP Nurse Practitioner Family; Visit Provider Nurse Practitioner Family
DX: E78.2 Mixed hyperlipidemia (principal); I10 Essential (primary) hypertension
CPT/HCPCS: 80048; 80061

== ENCOUNTER 2021-11-26 01:00 | Outpatient (CLI) | payer MEDICARE, OTHER, SELFPAY ==
--- NOTE | 2021-11-26 10:00 | DI.CT_ITS ---
Exam(s) CT CHEST WO EXAM: CT CHEST WO CLINICAL HISTORY: PULMONARY NODULE, R91.1. TECHNIQUE: Multi planar reconstructions were performed. CONTRAST MATERIAL: None COMPARISON: CR,XR XR CHEST 2V PA LATERAL from 10/21/2021 FINDINGS: CHEST: LUNGS: There are multiple tiny calcified granulomas in both lung gordon. In the anterior basal segme nt of the right lower lobe there is a small nodule measuring 5 millimeters which does not appear obvi ously calcified.. In the left upper lobe there is a small nodular infiltrate measuring 5 x 5 millime ters which does not exhibit calcification. There are no pleural effusions. No significant focal findings in the trachea and mainstem bronchi. There is no bronchiectasis. MEDIASTINUM: There is no obvious hilar nor mediastinal adenopathy. Visualized thyroid unremarkable.No obvious axillary adenopathy CARDIAC: Heart size is upper normal. There is very mild thickening of the pericardium anteriorly wit h maximum thickness measurement 3 millimeters. Caliber of the thoracic aorta is within normal limits . VISUALIZED UPPER ABDOMEN: OSSEOUS: There is a benign intraosseous hemangioma evident in in midthoracic vertebral body. No lyti c osseous lesions evident. No blastic lesions.. IMPRESSION: 1. In addition to multiple tiny bilateral benign calcified granulomas there is a noncalcified 5 tulio meter nodule in the right lower lobe and a noncalcified 5 millimeter nodular infiltrate in the left u pper lobe evident. Recommend repeat noninfused CT scan in 6 months to ensure stability of these bila teral noncalcified findings. 2. There are no pleural effusions nor obvious intrathoracic adenopathy. RADIATION DOSE DELIVERED: 614.96mGy.cm Total DLP DATA REPOSITORY: All CT scans at this facility are submitted to the National Radiology Data Registry (NRDR) Dose Index Registry (DIR) with the [employer] (ACR). RADIATION OPTIMIZATION: All CT scans at this facility use at least one of these dose optimization te chniques: automated exposure control; mA and/or kV adjustment per patient size (includes targeted exa ms where dose is matched to clinical indication); or iterative reconstruction.
--- NOTE | 2021-11-26 10:30 | DI.US_ITS ---
Exam(s) US CAROTID EXAM: US CAROTID CLINICAL HISTORY: TIA, G45.9. TECHNIQUE: Ultrasound carotids performed using grayscale, color-flow, and spectral Doppler imaging. COMPARISON: US US ECHOCARDIOGRAM from 09/07/2021 FINDINGS: Grayscale, color, and Doppler imaging of the carotid and vertebral arteries in the neck was performed . On the RIGHT SIDE there is some mild plaque evident at the carotid bulb and proximal right ICA but wi thout significantly elevated velocities implying stenosis less than 50 percent. On the LEFT-SIDE there is also mild plaque noted at the carotid bulb and proximal left ICA, also with out significantly elevated velocities Antegrade flow was demonstrated in both vertebral arteries. Measurements: R Bulb: 52.7cm/s PS / 9.6cm/s ED R CCA: 91.3cm/s PS / 9.6cm/s ED R ECA: 91.3cm/s PS / 9.6cm/s ED R ICA Prox: 84.2cm/s PS /10.9cm/s ED R ICA Mid: 77.8cm/s PS / 12.9cm/s ED R ICA Distal: 90.6cm/s PS /18.6cm/s ED R Vert: 53.3cm/s PS / 6.4cm/s ED R SVR: 0.99 R DVR: 1.94 L Bulb: 72cm/s PS /9.6cm/s ED L CCA: 93.2cm/s PS / 13.5cm/s ED L ECA: 108cm/s PS /8.4cm/s ED L ICA Prox:83.6cm/s PS / 15.4cm/s ED L ICA Mid: 76.5cm/sPS / 18.6cm/s ED L ICA Distal: 78.4cm/s PS / 23.8cm/s ED L Vert: 51.4cm/s PS / 9.6cm/s ED L SVR: 0.9 L DVR: 1.14 IMPRESSION: Mild plaque at the level of both carotid bifurcations and proximal ICA levels but without significant ly elevated velocities. This implies stenosis less than 50 percent bilaterally. Antegrade flow is demonstrated in both vertebral arteries in the neck. Criteria for Carotid Stenosis: Normal: ICA PSV <125 cm/s no plaque or intimal thickening is visible. <50% stenosis: ICA PSV <125 cm/s and plaque or intimal thickening is visible. 50-69% stenosis: ICA PSV is 125-250 cm/s and plaque is visible. >70% stenosis to near occlusion: ICA PSV >250 cm/s with visible plaque and luminal narrowing. DATA REPOSITORY:
== END 2021-11-26 01:20 ==
PROVIDERS: PCP Nurse Practitioner Family; Visit Provider Nurse Practitioner Family
DX: I65.23 Occlusion and stenosis of bilateral carotid arteries; R91.1 Solitary pulmonary nodule; J98.4 Other disorders of lung
CPT/HCPCS: 71250; 93880

== ENCOUNTER 2021-12-25 01:58 | Outpatient (CLI) | payer MEDICARE, OTHER, SELFPAY ==
--- NOTE | 2021-12-25 | DI.US_ITS ---
Exam(s) MG MAMMO DIAGNOSTIC BI US BREAST LT LIMITED EXAM: MAMMO DIAGNOSTIC BI and U/S breast LT limited CLINICAL HISTORY: LT BREAST PAIN, N64.4, AT 11 O'CLOCK 3 CM FROM AREOLA. TECHNIQUE: Craniocaudal and mediolateral oblique Full Field Digital Mammography views with Computer Aided Diagnosis followed by Tomosynthesis and left breast ultrasound. COMPARISON: The prior examinations were not available at this time for comparison. Should they becom e available they will be reviewed and compared and an addendum will be issued at that time. FINDINGS: Mammography/Tomosynthesis: Masses/Architectural Distortion: There are bilateral nodules present. Two ovoid nodules are seen in the upper inner quadrant of the left breast. The largest measures 8 mm in length. The smaller measu res 6 cm in length. Additional views of the left breast confirm their appearance. No associated ioana rocalcifications or spiculation is seen. Microcalcifictions: No suspicious pleomorphic-type are seen. Skin Thickening/Nipple Retraction: None. Limited left breast US: Echotexture: Normal appearance of the glandular tissue. Shadowing: No suspicious foci. Cyst: At the 9 o'clock position 5 cm from the nipple there is a 0.7 x 0.2 x 0.6 cm simple cyst. At 1 2 o'clock 4 cm from the nipple there is a 5.0 x 3.0 x 4.0 mm septated cyst. Solid lesions: None seen. Ductal dilation: None. IMPRESSION: 1. No definite evidence of malignancy is noted. 2. Unless there is more urgent need, follow-up screening mammography is recommended, as per [employer] guidelines. 3. The findings were discussed with the patient on the date of the examination. BI-RADS Category 2 - Benign Findings Breast Density - Category B - Scattered areas of fibroglandular density Breast density Category C or D implies that the patient has dense breast tissue. Dense breast tissue can make it harder to find cancer on a mammogram. Dense breast tissue is also associated with an incr eased risk of breast cancer. This information about the result of the mammogram report was provided to the patient to raise their awareness. Use this report when you speak with the patient about their risks for breast cancer, which includes their family history. At that time, you may recommend additional screening tests (Ultrasoun d or MRI) as these tests may add significant information. A negative radiographic report should not delay biopsy if a dominant or clinically suspicious mass is present. Up to ten percent of cancers are not identified on mammography. A negative report may reinforce clinical impression. Adenosis and dense breasts may obscure an underlying neoplasm. False positive reports average 6 to 10%. Patient will receive a letter notifying them of these results.
== END 2021-12-25 02:18 ==
PROVIDERS: PCP Nurse Practitioner Family; Visit Provider Nurse Practitioner Family
DX: R92.8 Other abnormal and inconclusive findings on diagnostic imaging of breast (principal)
CPT/HCPCS: 76642; 77062; 77066; G0279

== ENCOUNTER → 2022-01-04 01:39 | Outpatient (CLI) | payer MEDICARE, OTHER, SELFPAY ==
--- NOTE | 2022-01-04 09:30 | DI.US_ITS ---
Exam(s) US BREAST LT COMPLETE EXAM: US BREAST LT COMPLETE CLINICAL HISTORY: INCREASED SIZE OF NODULARITY,UPPER OUTER QUADRANT;TINY CALCIFICATIONS;R92.8. TECHNIQUE: Complete ultrasound of the left breast was performed including all 4 quadrants, the retro areolar region, and the ipsilateral axilla. COMPARISON: Prior mammograms were reviewed. Prior recent ultrasound 12/25/2021. This complete breast ultrasound was performed apparently due to comparison findings on the recent mammogram now that prio r outside mammogram November 2019 was attained and reviewed. FINDINGS: The recently described 2 benign microcysts in the left breast at 12 o'clock and 9 o'clock positions a re again noted. Today's complete left breast ultrasound also reveals an additional 6 x 3 millimeter microcyst at the 1 o'clock position which corresponds to the nodule on the mammogram which had increased in size when compared to the November 2019 mammogram. Most importantly, there are no solid lesions seen in the left breast on ultrasound examination. Ultrasound of the left axilla reveals no adenopathy. IMPRESSION: In summary, there are 3 benign-appearing microcysts in the left breast which correspond to the nodula r densities on the mammogram. There are no solid lesions seen in the left breast on today's ultrasound. Appropriate follow-up is repeat left breast MAMMOGRAM in 6 months. Findings and recommendations were discussed by myself with the patient today. BI-RADS Category 3 - 6 month - Probably Benign Finding: Recommend follow-up mammography in 6 months Breast Density - Category B - Scattered areas of fibroglandular density Breast density Category C or D implies that the patient has dense breast tissue. Dense breast tissue can make it harder to find cancer on a mammogram. Dense breast tissue is also associated with an incr eased risk of breast cancer. This information about the result of the mammogram report was provided to the patient to raise their awareness. Use this report when you speak with the patient about their risks for breast cancer, which includes their family history. At that time, you may recommend additional screening tests (Ultrasoun d or MRI) as these tests may add significant information. A negative radiographic report should not delay biopsy if a dominant or clinically suspicious mass is present. Up to ten percent of cancers are not identified on mammography. A negative report may reinforce clinical impression. Adenosis and dense breasts may obscure an underlying neoplasm. False positive reports average 6 to 10%. Patient will receive a letter notifying them of these results.
== END ==
PROVIDERS: PCP Nurse Practitioner Family; Visit Provider Nurse Practitioner Family
DX: R92.8 Other abnormal and inconclusive findings on diagnostic imaging of breast (principal); R92.0 Mammographic microcalcification found on diagnostic imaging of breast
CPT/HCPCS: 76642

== ENCOUNTER 2022-02-01 14:47 | Outpatient (REF) | payer MEDICARE, OTHER, SELFPAY ==
[2022-02-01 19:34] LABS: Anion Gap 7.7 mmol/L (3-11); BUN 18 mg/dL (7-18); CO2 30.3 mmol/L (21.0-32.0); CREATININE 0.6 mg/dL (0.55-1.02); Calcium 9.5 mg/dL (8.5-10.1); Chloride 105 mmol/L (98-107); Glucose 109 mg/dL (74-106); NT-proBNP 211 pg/mL (<300); Potassium 4.2 mmol/L (3.5-5.1); Sodium 143 mmol/L (136-145)
== END 2022-02-01 14:48 | disposition home or self-care (01) ==
LOC: NCHCN 14:47
PROVIDERS: PCP Nurse Practitioner Family; Visit Provider Nurse Practitioner Family
DX: R60.0 Localized edema (principal); R53.83 Other fatigue
CPT/HCPCS: 80048; 83880

== ENCOUNTER 2022-02-04 13:07 | Outpatient (CLI) | payer MEDICARE, OTHER, SELFPAY ==
--- NOTE | 2022-02-04 13:00 | RT.EKG_ITS ---
APPROVED REPORT Exam: Resting ECG Reason for Exam: CP, 1st degree AV block Patient Location: O HR:71 bpm ECG Measurements Heart Rate 71 AXIS MI 268 P 9 QRSd 93 QRS -14 QT 420 T 72 QTc 457 Conclusion Sinus rhythm...normal P axis, V-rate 50- 99 Prolonged MI interval...MI >220, V-rate 50- 90 Left ventricular hypertrophy...multiple voltage criteria Poor R wave progression
== END 2022-02-04 13:08 | disposition home or self-care (01) ==
LOC: DI.CARD 13:09
PROVIDERS: PCP Nurse Practitioner Family; Referring Provider Nurse Practitioner Family; Visit Provider Internal Medicine Cardiovascular Disease
DX: I44.0 Atrioventricular block, first degree (principal); R07.9 Chest pain, unspecified
CPT/HCPCS: 93010

== ENCOUNTER → 2022-02-04 13:07 | Outpatient (BNVA) | payer MEDICARE, OTHER, SELFPAY | PROVIDERS: PCP Nurse Practitioner Family; Referring Provider Nurse Practitioner Family; Visit Provider Internal Medicine Cardiovascular Disease | DX: R07.9 Chest pain, unspecified (principal); I44.0 Atrioventricular block, first degree; I10 Essential (primary) hypertension; I63.9 Cerebral infarction, unspecified; R06.00 Dyspnea, unspecified | CPT/HCPCS: 93005; 99203; 99214 ==

== ENCOUNTER → 2022-04-06 12:51 | Outpatient (BNVA) | payer MEDICARE, OTHER, SELFPAY | PROVIDERS: PCP Nurse Practitioner Family; Referring Provider Nurse Practitioner Family; Visit Provider Physician Assistant | DX: M17.12 Unilateral primary osteoarthritis, left knee (principal) | CPT/HCPCS: 20610; J1040 ==

== ENCOUNTER → 2022-05-24 02:55 | Outpatient (CLI) | payer MEDICARE, OTHER, SELFPAY ==
--- NOTE | 2022-05-24 14:45 | DI.CT_ITS ---
Exam(s) CT CHEST WO EXAM: CT CHEST WO CLINICAL HISTORY: PULMONARY NODULE, R91.1, 6-MO F/U TWO 5MM NONCALCIFIED NODULES. TECHNIQUE: Imaging protocol: Axial computed tomography images were obtained and coronal and sagittal reformatted images were created and reviewed. COMPARISON: CT CT CHEST WO from 11/26/2021 FINDINGS: The examination is limited due to patient motion artifact. Tracheobronchial tree: Patent where visualized. Pulmonary parenchyma: No consolidation or dominant measurable mass. No architectural distortion. Ther e are calcified granuloma in the lungs. There is scarring in the lung apices. There are stable nonc alcified pulmonary nodules. No new pulmonary nodules are present. Mediastinum and Bessy: No dominant adenopathy or fluid collection. The esophagus is unremarkable.Calci fied lymph nodes are seen in the mediastinum. There is a small hiatal hernia. Thyroid gland: Unremarkable. Pleura: No effusion or pneumothorax. Heart: Mild cardiomegaly. Coronary artery calcifications are present. No pericardial effusion. Aorta: Thoracic aorta non-dilated. Atherosclerosis is present. Upper abdomen: Unremarkable. Lymph nodes: Within normal limits. Soft tissues: Unremarkable. Bones:Within normal limits for the patient's age. IMPRESSION: Stable calcified and noncalcified pulmonary nodules. A follow-up CT scan of the chest in 6 months is recommended for re-evaluation. RADIATION DOSE DELIVERED: 516.23mGy.cm Total DLP 516.23mGy.cm Total DLP DATA REPOSITORY: All CT scans at this facility are submitted to the National Radiology Data Registry (NRDR) Dose Index Registry (DIR) with the [employer] (ACR). RADIATION OPTIMIZATION: All CT scans at this facility use at least one of these dose optimization te chniques: automated exposure control; mA and/or kV adjustment per patient size (includes targeted exa ms where dose is matched to clinical indication); or iterative reconstruction.
== END ==
PROVIDERS: PCP Nurse Practitioner Family; Visit Provider Nurse Practitioner Family
DX: R91.1 Solitary pulmonary nodule (principal)
CPT/HCPCS: 71250

== ENCOUNTER 2022-07-09 | Outpatient (CLI) | payer MEDICARE, OTHER, SELFPAY ==
--- NOTE | 2022-07-09 | DI.US_ITS ---
Exam(s) US BREAST LT COMPLETE US BREAST RT COMPLETE MG MAMMO DIAGNOSTIC BI EXAM: MG MAMMO DIAGNOSTIC BI AND COMPLETE BILATERAL BREAST ULTRASOUND CLINICAL HISTORY: LT BREAST PAIN, N64.4. TECHNIQUE: Both CC and MLO mammographic images both breasts were obtained with 3D tomosynthesis tech [employer] and utilizing computer aided detection (CAD). Bilateral complete breast ultrasound was performed including all 4 quadrants of both breasts as well as the retroareolar regions and both axillary regions. COMPARISON: Prior mammograms were reviewed, the most recent being DECEMBER 2021. This 77 year old patient is apparently complaining of breast pain, more prominent on the left side. She does not feel an actual lump. FINDINGS: BILATERAL DIAGNOSTIC MAMMOGRAM: There has been no significant change in the appearance and distribution of the fibroglandular tissue. Benign nodules in the left breast are unchanged. No new focal findings in either breast. No new spi culated masses. No malignant-appearing microcalcification groups in either breast. No new data warehouse architect ural distortion or skin thickening-traction. BILATERAL COMPLETE BREAST ULTRASOUND: No significant focal ultrasound findings in the right breast. There are multiple microcysts in the left breast.... At the 12 o'clock position there is a 4 millimeter benign microcyst. At the 3 o'clock position there is a benign 2 millimeter microcyst. At the 9 o'clock position there is a 6 x 3 millimeter benign microcyst. Most importantly, there are no solid lesions seen in the left breast. Scanning of the left axilla is negative for adenopathy. IMPRESSION: 1. No radiographic evidence of malignancy. Stable benign-appearing left breast nodules on mammograph y. 2. Benign microcysts in the left breast on ultrasound exam as described above, without evidence of so lid lesions. 3. Negative complete right breast ultrasound. The patient was informed of the findings and follow-up recommendations prior to leaving the [facility] today. BI-RADS Category 2 - Benign Findings Breast Density - Category B - Scattered areas of fibroglandular density Breast density Category C or D implies that the patient has dense breast tissue. Dense breast tissue can make it harder to find cancer on a mammogram. Dense breast tissue is also associated with an incr eased risk of breast cancer. This information about the result of the mammogram report was provided to the patient to raise their awareness. Use this report when you speak with the patient about their risks for breast cancer, which includes their family history. At that time, you may recommend additional screening tests (Ultrasoun d or MRI) as these tests may add significant information. A negative radiographic report should not delay biopsy if a dominant or clinically suspicious mass is present. Up to ten percent of cancers are not identified on mammography. A negative report may reinforce clinical impression. Adenosis and dense breasts may obscure an underlying neoplasm. False positive reports average 6 to 10%. Patient will receive a letter notifying them of these results.
--- NOTE | 2022-07-09 14:30 | DI.US_ITS ---
Exam(s) US BREAST LT COMPLETE US BREAST RT COMPLETE MG MAMMO DIAGNOSTIC BI EXAM: MG MAMMO DIAGNOSTIC BI AND COMPLETE BILATERAL BREAST ULTRASOUND CLINICAL HISTORY: LT BREAST PAIN, N64.4. TECHNIQUE: Both CC and MLO mammographic images both breasts were obtained with 3D tomosynthesis tech [employer] and utilizing computer aided detection (CAD). Bilateral complete breast ultrasound was performed including all 4 quadrants of both breasts as well as the retroareolar regions and both axillary regions. COMPARISON: Prior mammograms were reviewed, the most recent being DECEMBER 2021. This 77 year old patient is apparently complaining of breast pain, more prominent on the left side. She does not feel an actual lump. FINDINGS: BILATERAL DIAGNOSTIC MAMMOGRAM: There has been no significant change in the appearance and distribution of the fibroglandular tissue. Benign nodules in the left breast are unchanged. No new focal findings in either breast. No new spi culated masses. No malignant-appearing microcalcification groups in either breast. No new mobile solutions architect ural distortion or skin thickening-traction. BILATERAL COMPLETE BREAST ULTRASOUND: No significant focal ultrasound findings in the right breast. There are multiple microcysts in the left breast.... At the 12 o'clock position there is a 4 millimeter benign microcyst. At the 3 o'clock position there is a benign 2 millimeter microcyst. At the 9 o'clock position there is a 6 x 3 millimeter benign microcyst. Most importantly, there are no solid lesions seen in the left breast. Scanning of the left axilla is negative for adenopathy. IMPRESSION: 1. No radiographic evidence of malignancy. Stable benign-appearing left breast nodules on mammograph y. 2. Benign microcysts in the left breast on ultrasound exam as described above, without evidence of so lid lesions. 3. Negative complete right breast ultrasound. The patient was informed of the findings and follow-up recommendations prior to leaving the [facility] today. BI-RADS Category 2 - Benign Findings Breast Density - Category B - Scattered areas of fibroglandular density Breast density Category C or D implies that the patient has dense breast tissue. Dense breast tissue can make it harder to find cancer on a mammogram. Dense breast tissue is also associated with an incr eased risk of breast cancer. This information about the result of the mammogram report was provided to the patient to raise their awareness. Use this report when you speak with the patient about their risks for breast cancer, which includes their family history. At that time, you may recommend additional screening tests (Ultrasoun d or MRI) as these tests may add significant information. A negative radiographic report should not delay biopsy if a dominant or clinically suspicious mass is present. Up to ten percent of cancers are not identified on mammography. A negative report may reinforce clinical impression. Adenosis and dense breasts may obscure an underlying neoplasm. False positive reports average 6 to 10%. Patient will receive a letter notifying them of these results.
== END 2022-07-09 00:20 ==
PROVIDERS: PCP Nurse Practitioner Family; Visit Provider Nurse Practitioner Family
DX: N64.4 Mastodynia (principal); R92.0 Mammographic microcalcification found on diagnostic imaging of breast
CPT/HCPCS: 76642; 77062; 77066; G0279

== ENCOUNTER 2022-07-13 03:05 | Outpatient (CLI) | payer MEDICARE, OTHER, SELFPAY ==
[2022-07-13] MEDS: Albuterol HFA 18 GM 200 PUFF INH IH (15:58)
[2022-07-13] MEDS: Inhaler, Assist Device 1 EACH MC (15:58)
--- NOTE | 2022-07-14 16:42 | W.PFT ---
Date of service: 07/13/22 Time of Service: 15:01 Pulmonary Function Test Result Requesting Provider Ximena Graham Indications: SANTIAGO Interpretation Spirometry: There is no airflow limitation. There is no significant bronchodilator response. There is a restrictive appearing pattern to the spirometry. Lung Volumes: Normal lung volumes Diffusion Capacity: Normal diffusion. Airway Pressure: Normal airways resistance. Impression Normal pulmonary function testing. The restrictive appearing spirometry is due to pseudo-obstruction from an elevated BMI. Clinical Correlation therefore is recommended.
== END 2022-07-13 03:06 | disposition home or self-care (01) ==
LOC: RT 03:06
PROVIDERS: PCP Nurse Practitioner Family; Visit Provider Nurse Practitioner Family
DX: R06.09 Other forms of dyspnea (principal)
CPT/HCPCS: 94060; 94726; 94729

== ENCOUNTER 2022-09-01 02:34 | Outpatient (CLI) | payer MEDICARE, OTHER, SELFPAY ==
--- NOTE | 2022-09-01 | DI.RAD_ITS ---
Exam(s) XR ARTHRITIS SERIES EXAM: XR ARTHRITIS SERIES CLINICAL HISTORY: HAND PAIN, M79.643, PSORIASIS, I40.9. TECHNIQUE: 2D digital imaging was performed. COMPARISON: No exams were available for comparison FINDINGS: Two views-PA and [place] views of both hands There are no fractures. No subluxations. No erosions evident. Small calcific density is seen in th e soft tissues just lateral to the head of the middle phalanx of the 3rd finger of the right hand. N o other soft tissue calcifications evident. There is some degenerative change in the 1st carpometaca rpal joint of the left hand. First carpometacarpal joint of the right hand appears unremarkable. IMPRESSION: As above. DATA REPOSITORY: RADIATION DOSE DELIVERED:
== END 2022-09-01 02:54 ==
PROVIDERS: PCP Nurse Practitioner Family; Visit Provider Nurse Practitioner Family
DX: M79.641 Pain in right hand (principal); M79.642 Pain in left hand; M79.89 Other specified soft tissue disorders; M18.12 Unilateral primary osteoarthritis of first carpometacarpal joint, left hand
CPT/HCPCS: 73120

== ENCOUNTER 2022-10-17 18:35 | Emergency (ER) | payer MEDICARE, OTHER, SELFPAY ==
[2022-10-17] VITALS (8 sets, daily range): BP systolic 146–179; BP diastolic 69–97; PULSE 68–82; RESP 18–24; TEMP 36.5–36.7; O2SAT 93–96
--- NOTE | 2022-10-17 18:30 | RT.EKG_ITS ---
APPROVED REPORT Exam: Resting ECG Reason for Exam: CHEST PAIN/HIGH BP Patient Location: E HR:76 bpm ECG Measurements Heart Rate 76 AXIS MN 274 P 61 QRSd 97 QRS -16 QT 421 T 77 QTc 472 Conclusion Sinus rhythm...normal P axis, V-rate 60- 99 Prolonged MN interval...MN >220, V-rate 50- 90 Probable LVH with secondary repol abnrm...multiple LVH criteria sinus rhytm, left axis
--- NOTE | 2022-10-17 18:45 | DI.CT_ITS ---
Exam(s) CT BRAIN NECK CTA EXAM: CT BRAIN NECK CTA CLINICAL HISTORY: hx of stroke possible aneurysm. TECHNIQUE: Imaging Protocol: Axial CT angiography was performed with multi-slice acquisition and mu lti-planar and/or 3D reconstructions. CONTRAST MATERIAL: Intravenous: Omnipaque 350 contrast volume:100 mL COMPARISON: None. FINDINGS: CT Head W/O and W: Ventricles and Extra axial spaces: Normal in size and morphology for the patient's age. Hemorrhage: None. Cerebral parenchyma: There are areas of decreased attenuation in the white matter consistent with sma ll vessel ischemic disease. 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 Midline shift: None. Brainstem/Cerebellum: Normal. Calvarium: Normal. Visualized Paranasal sinuses/Mastoids: There is a mucous retention cyst or polyp in the left maxillar y sinus. The sinuses and mastoid air cells are otherwise clear. Soft Tissues: Unremarkable. Enhancement: Unremarkable. CTA Neck W: Common Carotid: Right: No dissection, occlusion or significant stenosis. Left: No dissection, occlusion or significant stenosis. External Carotid: Right: No occlusion or significant stenosis. Left: No occlusion or significant stenosis. Internal Carotid: Right: No dissection, occlusion or significant stenosis. Left: No dissection, occlusion or significant stenosis. There is mild atherosclerosis at the origin of the left internal carotid artery. Vertebral Artery: Right: No dissection, occlusion or significant stenosis. There is mild atherosclerosis at the distal right vertebral artery. Left: No dissection, occlusion or significant stenosis. Lung Apices: Normal. Bones: Within normal limits for the patient's age. Soft Tissues: Normal. Thyroid gland: Unremarkable. CTA Brain W: Internal Carotid Arteries: There is mild atherosclerosis bilaterally. No significant stenosis, or oc clusion or aneurysm is seen. Anterior Cerebral Arteries: Right: No aneurysm, occlusion or significant stenosis. Left: No aneurysm, occlusion or significant stenosis. Middle Cerebral Arteries: Right: No aneurysm, occlusion or significant stenosis. Left: No aneurysm, occlusion or significant stenosis. Posterior Cerebral Arteries: Right: No aneurysm, occlusion or significant stenosis. Left: No aneurysm, occlusion or significant stenosis. Vertebral Arteries: Right: No aneurysm, occlusion or significant stenosis. Left: No aneurysm, occlusion or significant stenosis. Basilar Artery: No aneurysm, occlusion or significant stenosis. IMPRESSION: 1. No large vessel occlusion or significant stenosis on the CT angiography of the head. 2. No acute intracranial process. 3. No occlusion or significant stenosis on the CT angiography of the neck. RADIATION DOSE DELIVERED: 1,962.36mGy.cm Total DLP DATA REPOSITORY: All CT scans at this facility are submitted to the National Radiology Data Registry (NRDR) Dose Index Registry (DIR) with the [employer] (ACR). RADIATION OPTIMIZATION: All CT scans at this facility use at least one of these dose optimization te chniques: automated exposure control; mA and/or kV adjustment per patient size (includes targeted exa ms where dose is matched to clinical indication); or iterative reconstruction.
--- NOTE | 2022-10-17 18:46 | DI.RAD_ITS ---
Exam(s) XR CHEST 1V IN DI DEPT EXAM: XR CHEST 1V IN DI DEPT CLINICAL HISTORY: weakness, headache TECHNIQUE: 2D digital imaging was performed of the chest. One images were obtained. AP views were obtained. COMPARISON: CR,XR XR PORTABLE CHEST AP from 08/28/2021 CR,XR XR CHEST 2V PA LATERAL from 10/21/[address] CHEST WO from 05/24/2022 FINDINGS: MEDIASTINUM: Normal. HEART: Normal. PULMONARY VASCULATURE: There is unchanged prominence of the right hilum which appears to represent pu lmonary vasculature. LUNGS: Clear. PLEURAL SPACE: No pleural effusion or pneumothorax. BONE:Within normal limits for the patient's age. OTHER FINDINGS:Normal. IMPRESSION: No acute pulmonary findings. DATA REPOSITORY: RADIATION DOSE DELIVERED:
[2022-10-17] MEDS: Omnipaque 350 MG/ML 100 ML BTL IJ (18:52)
[2022-10-17] MEDS: Normal Saline - Diluent 50 ML VIAL IJ (18:53)
[2022-10-17 19:02] LABS: Abs Immature Grans 0.05 10^3/uL (0.0-0.06); Absolute Basophil Count 0.07 10^3/uL (0.0-0.2); Absolute Eosinophil Count 0.21 10^3/uL (0.0-0.7); Absolute Lymphocyte Count 2.02 10^3/uL (1.2-3.4); Absolute Monocyte Count 0.62 10^3/uL (0.1-0.8); Absolute Neutrophil Count 5.49 10^3/uL (1.2-6.7); Basophils % 0.8; Eosinophils % 2.5; HCT 40.6 % (36.0-46.0); HGB 13.1 g/dL (11.2-15.7); Immature Grans % 0.6; Lymphocytes % 23.9; MCH 28.7 pg (27.0-33.0); MCHC 32.3 % (32.0-36.0); MCV 89 fL (80-95); MPV 9.6 fL (8.0-11.0); Monocytes % 7.3; Neutrophils % 64.9; Platelet Count 243 10^3/uL (130-400); RBC 4.57 10^6/uL (3.93-5.22); RDW 13.7 % (11.7-14.6); RDW-SD 44.6 fL; WBC 8.46 10^3/uL (4.4-10.8)
--- NOTE | 2022-10-17 19:02 | ED.GENADUL_ITS ---
Discharge Plan Discharge Details Chief Complaint: CVA/TIA Primary Care Provider: Ximena Graham ED Provider: Flaco Parrish Home Meds and New Rx's Prescriptions: No Action levalbuterol tartrate [Xopenex HFA] 45 mcg/actuation HFA aerosol inhaler 2 inh inhalation Q6H multivitamin tablet 1 tab PO DAILY lisinopril 20 mg tablet 20 mg PO BID cyanocobalamin (vitamin B-12) [Vitamin B-12] 500 mcg tablet 500 mcg PO DAILY rosuvastatin 20 mg tablet 20 mg PO DAILY Rx Instructions: take with 10 mg for a total of 30 mg daily. rosuvastatin 10 mg tablet 10 mg PO DAILY Label Comments: TAKE 1 TABLET BY MOUTH ONCE DAILY WITH 20MG TAB FOR 30 MG DAILY. diazepam [Valium] 5 mg tablet 5 mg PO BID PRN labetalol 200 mg tablet See Rx Instructions PO BID Rx Instructions: 1 TAB QAM 1/2 TAB QHS PO twice a day; TAKE ONE TABLET BY MOUTH EVERY MORNING AND ONE HALF TABLET AT BEDTIME. Levemir FlexTouch U-100 Insuln 100 unit/mL (3 mL) insulin pen 24 unit SUBCUT BID Rx Instructions: 09/29/22 24 UN QAM, 22 U QHS acetaminophen [Acetaminophen Extra Strength] 500 mg Tablet 500 mg PO Q6H PRN amlodipine 10 mg tablet 10 mg PO DAILY Label Comments: TAKE 1 TABLET BY MOUTH ONCE DAILY cholecalciferol (vitamin D3) [Vitamin D3] 50 mcg (2,000 unit) Capsule 50 mcg PO DAILY gabapentin 300 mg capsule 300 mg PO TID PRN Rx Instructions: sig: one tab qAM, and one tab HS.; third time is prn famotidine 40 mg tablet 40 mg PO DAILY Qty: 30 0RF clopidogrel 75 mg tablet 75 mg PO DAILY Label Comments: TAKE 1 TABLET BY MOUTH ONCE DAILY Medical Decision Making 77-year-old female history of prior stroke with right-sided residual deficit, presents brought in by family for evaluation of shaking spells involving bilateral upper extremities multiple times since 12 PM this afternoon. Self resolving events. No loss of consciousness. No trauma. Patient is on Plavix does have a history of what sounds like brain aneurysm as well as thromboembolic stroke. Patient has baseline right-sided weakness residual from prior stroke that she says is no worse today. Patient has baseline residual dysarthria. Patient is alert and oriented cranial nerves intact 4+ out of 5 strength right side of body, 5 and 5 strength left-sided body no truncal ataxia appreciated. Moderate hypertension. Blood glucose within normal range. Consider recurrent CVA ischemic versus hemorrhagic versus seizure activity versus electrolyte normality versus less likely infectious process lower suspicion for ACS or aortic pathology will obtain stat CT CTA head neck, EKG labs chest x-ray evaluation of electrolytes and other basic labs. Disposition pending results and imaging 20: 05 CT CTA head neck unremarkable. Chest x-ray clear. EKG nonischemic. Labs largely unremarkable at this time. Patient does endorse labile blood pressure was very hypertense earlier today in the 200s over 100s, took 2 extra doses of labetalol, patient did have 1 episode of low systolic blood pressure in the high 80s with a MAP greater than 65, repeat blood pressure now 158 systolic. Normal mentation no focal deficits new today. Consider symptomatic hypertension versus polypharmacy versus anxiety versus ACS. Lower suspicion for PE or aortic pathology at this time. We will continue to follow labs with repeat troponin and UA. Disposition pending reassessment of symptoms and results HPI General Date/Time Provider Initiated Documentation: 10/17/22 18:46 . HPI Narrative: 77-year-old female history of prior stroke with residual right-sided deficits, per patient and family collateral she has had what sounds like embolic strokes but possibly may have had brain aneurysms as well. Patient is on Plavix. Several spells today beginning around noon involving shaking of her upper extremities lasting a short period time self resolving. Patient also endorsing pain rating from her right neck into Related Data Home Medications Medication Instructions Recorded Confirmed cyanocobalamin (vitamin B-12) 500 500 mcg PO DAILY 07/11/18 10/17/22 mcg tablet (Vitamin B-12) lisinopril 20 mg tablet 20 mg PO BID 07/11/18 10/17/22 multivitamin 1 tab PO DAILY 07/11/18 10/17/22 acetaminophen 500 mg tablet 500 mg PO Q6H PRN 07/23/20 10/17/22 (Acetaminophen Extra Strength) amlodipine 10 mg tablet 10 mg PO DAILY 07/23/20 10/17/22 cholecalciferol (vitamin D3) 50 50 mcg PO DAILY 07/23/20 10/17/22 mcg (2,000 unit) capsule (Vitamin D3) gabapentin 300 mg capsule 300 mg PO TID PRN 07/23/20 10/17/22 famotidine 40 mg tablet 40 mg PO DAILY #30 tabs 07/25/20 10/17/22 diazepam 5 mg tablet (Valium) 5 mg PO BID PRN 11/09/21 04/06/22 rosuvastatin 10 mg tablet 10 mg PO DAILY 11/09/21 10/17/22 rosuvastatin 20 mg tablet 20 mg PO DAILY 11/09/21 10/17/22 labetalol 200 mg tablet See Rx Instructions PO BID 01/12/22 10/17/22 levalbuterol tartrate 45 2 inh inhalation Q6H 03/23/22 10/17/22 mcg/actuation aerosol inhaler (Xopenex HFA) insulin detemir U-100 100 unit/mL 24 unit subcut BID 09/29/22 10/17/22 (3 mL) subcutaneous pen (Levemir FlexTouch U-100 Insulin) clopidogrel 75 mg tablet 75 mg PO DAILY 10/17/22 10/17/22 Previous Rx's Medication Instructions Recorded famotidine 40 mg tablet 40 mg PO DAILY #30 tabs 07/25/20 Allergies Allergy/AdvReac Type Severity Reaction Status Date / Time aspirin Allergy Severe GI Bleed Verified 10/17/22 18:46 Calcium Channel Blocking Allergy Severe Verified 10/17/22 18:46 Agent Dilt ibuprofen [From Motrin] Allergy Severe GI Bleed Verified 10/17/22 18:46 pneumococcal vaccine Allergy Severe Verified 10/17/22 18:46 [From Pneumovax-] pregabalin Allergy Severe Verified 10/17/22 18:46 Tetracyclines Allergy Severe Makes my Verified 10/17/22 18:46 skin peel and throat close up buspirone Allergy Unknown Verified 10/17/22 18:46 codeine Allergy Unknown Verified 10/17/22 18:46 pentazocine [From Talwin] Allergy Unknown Verified 10/17/22 18:46 sulfamethoxazole Allergy Unknown Verified 10/17/22 18:46 [From Bactrim] trimethoprim [From Bactrim] Allergy Unknown Verified 10/17/22 18:46 furosemide [From Lasix] Allergy Unverified 10/17/22 18:46 glipizide Allergy Unverified 10/17/22 18:46 metformin Allergy Unverified 10/17/22 18:46 sertraline Allergy Unverified 10/17/22 18:46 spironolactone Allergy Unverified 10/17/22 18:46 ciprofloxacin [From Cipro] AdvReac Severe made my Verified 10/17/22 18:46 stomach bleed duloxetine [From Cymbalta] AdvReac Severe made me Verified 10/17/22 18:46 sick and suicidal prednisone AdvReac Severe Raises BP Verified 10/17/22 18:46 and blood sugar per Pt tramadol AdvReac Severe major GI Verified 10/17/22 18:46 upset oxycodone [From Percocet] AdvReac Unknown Verified 10/17/22 18:46 propoxyphene AdvReac Unknown Verified 10/17/22 18:46 [From Darvocet-N] General Stated Complaint: CVA/TIA RADHA: 2 Review of Systems Narrative: Review of Systems Constitutional: negative Eyes: negative ENT: negative Cardiovascular: negative Respiratory: negative Gastrointestinal: negative : negative Musculoskeletal: negative Skin: negative Neurologic: Headache, neck pain, shaking Psych: negative PFSH All Active Problems (Updated 09/29/22 @ 08:50 by Yolanda Okeefe RN, RN) Hearing loss (Acute) Trigger finger, right middle finger (Acute) Nasal congestion (Acute) Impairment of speech discrimination (Acute) Sensorineural hearing loss, bilateral (Acute) Decreased hearing (Acute) Transient neurological symptoms (Acute) Pulmonary nodule (Acute) Breast pain, left (Acute) Fatigue (Acute) Dermatitis (Acute) Body mass index [BMI] 31.0-31.9, adult (Acute) Depression (Chronic) Dyspnea on exertion (Acute) Atypical chest pain (Acute) Chest pain (Acute) Painful orthopaedic hardware (Acute) Status post removal of syndesmotic screw DOS: 04/16/2021 CVA (cerebral vascular accident) (Chronic) Diabetes mellitus (Chronic) COPD without exacerbation (Acute) Neuropathy (Acute) DVT prophylaxis (Acute) Discharge planning issues (Acute) Fever (Acute) Vulvitis (Acute) 06/2020. Unclear etiology. Rx with topical yeast/steroid. 08/2020. punch bx of R vaginal vestibule. 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 Lipoma of extremity (Acute) Arthritis of knee, left (Acute) Depo-Medrol injection: 04/06/2022; 08/05/2021; 04/29/2021 S/P skin biopsy (Acute) 08/2020. R side of vaginal vestibule. Bimalleolar fracture of right ankle (Acute 03/16/20) March 2020 s/p ORIF Periprosthetic fracture around internal prosthetic right knee joint, initial encounter (Acute 03/16/20) March 2020 s/p ORIF Status post total knee replacement, right (Acute 02/05/19) Dr. Monge Hypertension (Chronic) Medical History (Updated 09/29/22 @ 08:50 by Yolanda Okeefe RN, RN) Adjustment disorder with anxiety Ankle pain, right Arthralgia of wrist, right Arthritis of knee, right Belching Bilateral leg edema Cerebral hemorrhage(nontraumatic) Generalized arthritis GI bleed Gout Headache Hiatal hernia History of depression meds in past presently on no rx for depression History of hemorrhagic stroke with residual hemiparesis (R) Hyperlipidemia Knee pain, left LUQ pain Neck pain on right side TIM (obstructive sleep apnea) has used cpap in past presently not using Osteoarthritis RUQ pain Shoulder pain, right Skin tag Vulvar irritation Surgical History History of appendectomy History of arthroscopic knee surgery History of colonoscopy History of hysterectomy Family History Father Heart disease Social History Smoking/Tobacco Use Status: Never Smoking risk assessment performed?: Yes Alcohol Intake: never Drug use: Never Substance use type: does not use Household members: significant other Number of Children: 0 current occupation: retired. Pets and animals: No Current gender identity: female What is your relationship status?: Panel score (0-1 are the most socially isolated patients): 0 What type of physical activity do you participate in: none Seatbelt use: always Do you feel safe at home: Yes Do you feel safe in your relationship?: Yes Female Reproductive History Menstrual Menopause type: surgical Exam Narrative Exam Narrative: Physical Examination General: alert, awake, cooperative, moderately uncomfortable HEENT: normocephalic, atraumatic; PERRL, EOM intact, conjunctiva normal; no nasal discharge; moist mucous membranes, oral and pharyngeal mucosa normal, tolerating secretions Neck: supple, trachea midline; full ROM Chest: normal to inspection Respiratory: normal respiratory effort, speaking in full sentences, clear to aus cultation, no wheezing, rales or rhonchi Cardiac: regular rate, regular rhythm, S1S2 intact, no murmurs rubs or gallops GI: abdomen soft, non-tender, non-distended; no palpable mass or hepatosplenom egaly Skin: no lesions, rashes or trauma appreciated Neuro: Alert and oriented, mild dysarthria, cranial nerves intact, 4+ out of 5 strength upper and lower extremities on right, 5 out of 5 strength upper and lower extremities on left, no truncal ataxia Psych: Appropriate mood and affect Course Vital Signs Vital signs: Vital Signs Temperature 36.7 C 10/17/22 18:41 Pulse 81 10/17/22 18:41 Respiratory Rate 18 10/17/22 18:41 Blood Pressure 179/95 H 10/17/22 18:41 Pulse Oximetry 96 10/17/22 18:41 Temperature 36.7 C 10/17/22 18:41 Temperature Source Skin 10/17/22 18:41 Pulse 81 10/17/22 18:41 Respiratory Rate 18 10/17/22 18:41 Blood Pressure 179/95 H 10/17/22 18:41 Blood Pressure Position Sitting 10/17/22 18:41 Pulse Oximetry 96 10/17/22 18:41 Oxygen Delivery Method Room Air 10/17/22 18:41 Oxygen Flow Rate 0 10/17/22 18:41 Pain Level 5 10/17/22 18:41 Lab/Test Results Lab/Test Results: Laboratory Tests Range/Units 10/17/22 18:54 WBC (4.4-10.8) 10^3/uL 8.46 RBC (3.93-5.22) 10^6/uL 4.57 Hgb (11.2-15.7) g/dL 13.1 Hct (36.0-46.0) % 40.6 MCV (80-95) fL 89 MCH (27.0-33.0) pg 28.7 MCHC (32.0-36.0) % 32.3 RDW (11.7-14.6) % 13.7 Plt Count (130-400) 10^3/uL 243 MPV (8.0-11.0) fL 9.6 Immature Gran % 0.6 Neutrophils % 64.9 Lymphocytes % 23.9 Monocytes % 7.3 Eosinophils % 2.5 Basophils % 0.8 Nucleated RBC % (0.0-0.3) % 0.0 Absolute Neutrophils (1.2-6.7) 10^3/uL 5.49 Absolute Lymphocytes (1.2-3.4) 10^3/uL 2.02 Absolute Monocytes (0.1-0.8) 10^3/uL 0.62 Absolute Eosinophils (0.0-0.7) 10^3/uL 0.21 Absolute Basophils (0.0-0.2) 10^3/uL 0.07
[2022-10-17 19:16] LABS: PTT Activated 24.8 sec (21.0-27.5)
[2022-10-17 19:30] LABS: ALT 26 U/L (14-59); AST 25 U/L (15-37); Alkaline Phosphatase 127 U/L (46-116); Anion Gap 6.7 mmol/L (3-11); BUN 17 mg/dL (7-18); Bilirubin, Total 0.5 mg/dL (0.2-1.0); CO2 30.3 mmol/L (21.0-32.0); CREATININE 0.8 mg/dL (0.55-1.02); Calcium 9.1 mg/dL (8.5-10.1); Chloride 103 mmol/L (98-107); Creatine Kinase 68 U/L (26-192); Estimated GFR 75.37 (mL/min/1.73m2); Glucose 162 mg/dL (74-106); Potassium 3.8 mmol/L (3.5-5.1); Sodium 140 mmol/L (136-145); Total Protein 7.9 g/dL (6.4-8.2); Troponin I < 50 ng/L (<or=60)
--- NOTE | 2022-10-17 19:40 | DI.VRAD_ITS ---
PROCEDURE INFORMATION: Exam: CT Head Without Contrast Exam date and time: 10/17/2022 7:01 PM Age: 77 years old Clinical indication: Stroke-like symptoms; Other: Head and neck pain R sided; Additional info: HX of stroke possible aneurysm TECHNIQUE: Imaging protocol: Computed tomography of the head without contrast. Other technique: STROKE PROTOCOL was implemented. COMPARISON: MR BRAIN WO 09/24/2021 10:28 AM FINDINGS: Brain: There is no acute intracranial hemorrhage, mass effect or midline shift. No large acute territorial infarct identified. There are patchy regions of hypodensity in the periventricular and subcortical white matter, likely on the basis of chronic microvascular ischemic disease. There are small hypodensities in the bilateral basal ganglia, suggestive of remote lacunar infarcts. Bilateral basal ganglia calcifications are noted. Cerebral ventricles: The ventricles and sulci are prominent in size, which is at least in part due to global cerebral volume loss. Paranasal sinuses: Mucosal polyps versus mucus retention cysts are seen in the left maxillary sinus. Mastoid air cells: The mastoid air cells are unremarkable. Bones/joints: No acute fracture. Soft tissues: Small subcutaneous calcifications again noted at the vertex. IMPRESSION: No acute intracranial hemorrhage, mass effect or midline shift. ASSESSMENT: ASPECTS ([place] Stroke Program Early CT Score) is 10. PROCEDURE INFORMATION: Exam: CTA Head With Contrast, Arteriography Exam date and time: 10/17/2022 7:01 PM Age: 77 years old Clinical indication: Stroke-like symptoms; Other: Head and neck pain R sided; Additional info: HX of stroke possible aneurysm TECHNIQUE: Imaging protocol: Computed tomographic angiography of the head with contrast. Exam focused on the arteries. 3D rendering (Not supervised by radiologist): MIP and/or 3D reconstructed images were created by the technologist. Radiation optimization: All CT scans at this facility use at least one of these dose optimization techniques: automated exposure control; mA and/or kV adjustment per patient size (includes targeted exams where dose is matched to clinical indication); or iterative reconstruction. Contrast material: OMNIPAQUE 350; Contrast volume: 100 ml; Contrast route: INTRAVENOUS (IV); COMPARISON: CT BRAIN NECK CTA 07/23/2020 4:35 PM FINDINGS: ANTERIOR CIRCULATION: Right internal carotid artery: Intracranial segment is patent with no significant stenosis. No aneurysm. Right middle cerebral artery: No occlusion or significant stenosis. No aneurysm. Right anterior cerebral artery: No occlusion or significant stenosis. No aneurysm. Left internal carotid artery: The left internal carotid artery shows no evidence of occlusion or significant stenosis. No aneurysm. Left middle cerebral artery: No occlusion or significant stenosis. No aneurysm. Left anterior cerebral artery: No occlusion or significant stenosis. No aneurysm. POSTERIOR CIRCULATION: Right vertebral artery: No occlusion or significant stenosis. No aneurysm. Left vertebral artery: No occlusion or significant stenosis. No aneurysm. Basilar artery: No occlusion or significant stenosis. No aneurysm. Right posterior cerebral artery: No occlusion or significant stenosis. No aneurysm. Left posterior cerebral artery: No occlusion or significant stenosis. No aneurysm. Brain: No definite mass, mass effect, or midline shift. Cerebral ventricles: No ventriculomegaly. Bones/joints: Unremarkable. No acute fracture. Soft tissues: Unremarkable. IMPRESSION: No large vessel occlusion or significant stenosis. PROCEDURE INFORMATION: Exam: CTA Neck With Contrast Exam date and time: 10/17/2022 7:01 PM Age: 77 years old Clinical indication: Stroke-like symptoms; Other: Head and neck pain R sided; Additional info: HX of stroke possible aneurysm TECHNIQUE: Imaging protocol: Computed tomographic angiography of the neck with contrast. 3D rendering (Not supervised by radiologist): MIP and/or 3D reconstructed images were created by the technologist. Radiation optimization: All CT scans at this facility use at least one of these dose optimization techniques: automated exposure control; mA and/or kV adjustment per patient size (includes targeted exams where dose is matched to clinical indication); or iterative reconstruction. Contrast material: OMNIPAQUE 350; Contrast volume: 100 ml; Contrast route: INTRAVENOUS (IV); COMPARISON: CT BRAIN NECK CTA 07/23/2020 4:35 PM FINDINGS: Right common carotid artery: No stenosis. No dissection or occlusion. Right internal carotid artery: No stenosis of the extracranial segment. No dissection or occlusion. Atherosclerotic plaque noted at the origin. Right external carotid artery: No occlusion or stenosis of the origin. Left common carotid artery: No stenosis. No dissection or occlusion. Left internal carotid artery: No stenosis of the extracranial segment. No dissection or occlusion. Left external carotid artery: No occlusion or stenosis of the origin. Right vertebral artery: No stenosis. No dissection or occlusion. Left vertebral artery: No stenosis. No dissection or occlusion. Soft tissues: Normal. No significant soft tissue swelling. Bones/joints: No acute fracture. IMPRESSION: No significant carotid stenosis. No arterial occlusion or dissection. REFERENCES: NASCET CRITERIA. The degree of stenosis in the cervical segment of the internal carotid artery is based on NASCET criteria. Normal is no stenosis. Mild is less than 50% stenosis. Moderate is 50-69% stenosis. Severe is 70% to 99% stenosis. Total occlusion is no detectable patent lumen. Dictated and Authenticated by: Bere Marcelino MD. Ordering:CLEMENT Sam MD
[2022-10-17 19:45] LABS: Bilirubin Negative (Negative); Blood Negative (Negative); Clarity Clear (Clear); Glucose Negative (Negative); Ketones Negative (Negative); Leukocyte Esterase Negative (Negative); Nitrite Negative (Negative); Urobilinogen 0.2 EU/dL (Up TO 0.2)
--- NOTE | 2022-10-17 19:45 | DI.VRAD_ITS ---
PROCEDURE INFORMATION: Exam: XR Chest Exam date and time: 10/17/2022 6:59 PM Age: 77 years old Clinical indication: Weakness, headache; Additional info: HX of stroke possible aneurysm TECHNIQUE: Imaging protocol: Radiologic exam of the chest. Views: 1 view. COMPARISON: CT CHEST WO 05/24/2022 3:00 PM FINDINGS: Lungs: No consolidation. Pleural spaces: The left costophrenic angle is obscured, possibly due to prominent pericardial fat pad. No definite pleural effusion. No pneumothorax. Heart/Mediastinum: No cardiomegaly. There is prominence of the right lung hilum, which may be related to patient morphology. Bones/joints: Unremarkable. IMPRESSION: No acute findings. Dictated and Authenticated by: Bere Marcelino MD. Ordering:CLEMENT Sam MD
[2022-10-17 19:58] LABS: *AMPHETAMINES SCREEN URINE Negative (Negative); *BARBITURATES SCREEN URINE Negative (Negative); *BENZODIAZEPINES SCREEN URINE Negative (Negative); Cannabinoids THC Negative (Negative); Cocaine Screen,Urine Negative (Negative); METHADONE URINE SCREEN Negative (Negative); OPIATES URINE SCREEN Negative (Negative)
[2022-10-17 20:03] LABS: Tricyclic Antidepressants Negative (Negative)
[2022-10-17] MEDS: Normal Saline 500 ML IV (21:09)
--- NOTE | 2022-10-17 21:14 | W.EDPROG ---
Date of service: 10/17/22 Time of Service: 21:00 Medical Decision Making 2100 --please see Dr. Parrish's note for initial presentation, exam and plan. Case endorsed to follow-up on repeat troponin with plan for discharge to home if work-up negative and patient feels better. Patient evaluated by me at bedside. She states she had 2 episodes today in which she felt warm, had full body shaking and left-sided chest aching with radiation to her left shoulder. She states her blood pressure was high during these episodes at 220/120. She states her blood pressure is normally 140s/90s. She states she took an extra labetalol at home and her blood pressure improved. She states her symptoms somewhat improved shortly after. She admits to a left-sided chest ache a 4/10 at this time. She does admit to shortness of breath and nausea during these episodes. She denies any headache, blurry vision, unilateral weakness or numbness or dizziness during these episodes. She states she had a similar presentation occurring 1 year ago and was seen in the ED at that time but did not find a diagnosis and was discharged to home with unremarkable work-up. Patient's blood pressure has improved. It is currently 155/86. She has no focal deficits on my exam. Nurse said she noted a shaking episode in patient's hands while here in the ED but it seemed to stop when she question patient about it. Unclear if anxiety may be playing a role. I discussed with patient that her high blood pressure readings may have contributed to her symptoms but that as her blood pressure is improving and her work-up thus far is negative, this is reassuring. We will give a dose of IV Tylenol, IV Pepcid, IV fluids and oral Ativan for her symptoms and reassess. Plan is for repeat troponin and EKG at 2145. 2300 --repeat troponin negative. Repeat EKG unchanged. Patient reassessed and she feels much better. She is currently pain-free and she states she has had no more episodes of shaking and feels comfortable going home. We will send with a few tabs of Ativan to go. Advised to follow up with the primary care doctor for re-evaluation. Usual and customary return precautions given prior to discharge. Medical Records Medical records reviewed: Yes I reviewed the patient's medical records. Medical records narrative: 12/7/21 Myocardial Perfusion Scan Stress ECG Conclusion 1. Resting electrocardiogram showed poor R wave progression 2. Patient underwent pharmacologic stress with regadenoson 3. Peak heart rate achieved was 70% of maximal for age 4. Electrocardiographically the test was nondiagnostic due to inadequate heart rate MPI Conclusion Normal myocardial perfusion without evidence of ischemia or prior infarction EF 62%, normal wall motion Imaging Data Radiologic Study: Radiologist's impression: CT Head Without Contrast Exam date and time: 10/17/2022 7:01 PM Age: 77 years old Clinical indication: Stroke-like symptoms; Other: Head and neck pain R sided; Additional info: HX of stroke possible aneurysm TECHNIQUE: Imaging protocol: Computed tomography of the head without contrast. Other technique: STROKE PROTOCOL was implemented. COMPARISON: MR BRAIN WO 09/24/2021 10:28 AM FINDINGS: Brain: There is no acute intracranial hemorrhage, mass effect or midline shift. No large acute territorial infarct identified. There are patchy regions of hypodensity in the periventricular and subcortical white matter, likely on the basis of chronic microvascular ischemic disease. There are small hypodensities in the bilateral basal ganglia, suggestive of remote lacunar infarcts. Bilateral basal ganglia calcifications are noted. Cerebral ventricles: The ventricles and sulci are prominent in size, which is at least in part due to global cerebral volume loss. Paranasal sinuses: Mucosal polyps versus mucus retention cysts are seen in the left maxillary sinus. Mastoid air cells: The mastoid air cells are unremarkable. Bones/joints: No acute fracture. Soft tissues: Small subcutaneous calcifications again noted at the vertex. IMPRESSION: No acute intracranial hemorrhage, mass effect or midline shift. ASSESSMENT: ASPECTS ([place] Stroke Program Early CT Score) is 10. CTA Head With Contrast, Arteriography Exam date and time: 10/17/2022 7:01 PM Age: 77 years old Clinical indication: Stroke-like symptoms; Other: Head and neck pain R sided; Additional info: HX of stroke possible aneurysm TECHNIQUE: Imaging protocol: Computed tomographic angiography of the head with contrast. Exam focused on the arteries. 3D rendering (Not supervised by radiologist): MIP and/or 3D reconstructed images were created by the technologist. Radiation optimization: All CT scans at this facility use at least one of these dose optimization techniques: automated exposure control; mA and/or kV adjustment per patient size (includes targeted exams where dose is matched to clinical indication); or iterative reconstruction. Contrast material: OMNIPAQUE 350; Contrast volume: 100 ml; Contrast route: INTRAVENOUS (IV);? COMPARISON: CT BRAIN NECK CTA 07/23/2020 4:35 PM FINDINGS: ANTERIOR CIRCULATION: Right internal carotid artery: Intracranial segment is patent with no significant stenosis. No aneurysm. Right middle cerebral artery: No occlusion or significant stenosis. No aneurysm.? Right anterior cerebral artery: No occlusion or significant stenosis. No aneurysm.? Left internal carotid artery: The left internal carotid artery shows no evidence of occlusion or significant stenosis. No aneurysm. Left middle cerebral artery: No occlusion or significant stenosis. No aneurysm. ? Left anterior cerebral artery: No occlusion or significant stenosis. No aneurysm.? POSTERIOR CIRCULATION: Right vertebral artery: No occlusion or significant stenosis. No aneurysm.? Left vertebral artery: No occlusion or significant stenosis. No aneurysm.? Basilar artery: No occlusion or significant stenosis. No aneurysm. Right posterior cerebral artery: No occlusion or significant stenosis. No aneurysm.? Left posterior cerebral artery: No occlusion or significant stenosis. No aneurysm.? Brain: No definite mass, mass effect, or midline shift. Cerebral ventricles: No ventriculomegaly. Bones/joints: Unremarkable. No acute fracture. Soft tissues: Unremarkable. IMPRESSION: No large vessel occlusion or significant stenosis. CTA Neck With Contrast Exam date and time: 10/17/2022 7:01 PM Age: 77 years old Clinical indication: Stroke-like symptoms; Other: Head and neck pain R sided; Additional info: HX of stroke possible aneurysm TECHNIQUE: Imaging protocol: Computed tomographic angiography of the neck with contrast. 3D rendering (Not supervised by radiologist): MIP and/or 3D reconstructed images were created by the technologist. Radiation optimization: All CT scans at this facility use at least one of these dose optimization techniques: automated exposure control; mA and/or kV adjustment per patient size (includes targeted exams where dose is matched to clinical indication); or iterative reconstruction. Contrast material: OMNIPAQUE 350; Contrast volume: 100 ml; Contrast route: INTRAVENOUS (IV);? COMPARISON: CT BRAIN NECK CTA 07/23/2020 4:35 PM FINDINGS: Right common carotid artery: No stenosis. No dissection or occlusion. Right internal carotid artery: No stenosis of the extracranial segment. No dissection or occlusion.? Atherosclerotic plaque noted at the origin. Right external carotid artery: No occlusion or stenosis of the origin.? Left common carotid artery: No stenosis. No dissection or occlusion. Left internal carotid artery: No stenosis of the extracranial segment. No dissection or occlusion. Left external carotid artery: No occlusion or stenosis of the origin.? Right vertebral artery: No stenosis. No dissection or occlusion. Left vertebral artery: No stenosis. No dissection or occlusion. Soft tissues: Normal. No significant soft tissue swelling. Bones/joints: No acute fracture. IMPRESSION: No significant carotid stenosis.? No arterial occlusion or dissection.? Lab Data Lab results reviewed: Yes I reviewed the patient's lab results. Labs: Laboratory Tests Range/Units 10/17/22 10/17/22 10/17/22 18:54 18:54 18:54 WBC (4.4-10.8) 10^3/uL 8.46 RBC (3.93-5.22) 10^6/uL 4.57 Hgb (11.2-15.7) g/dL 13.1 Hct (36.0-46.0) % 40.6 MCV (80-95) fL 89 MCH (27.0-33.0) pg 28.7 MCHC (32.0-36.0) % 32.3 RDW (11.7-14.6) % 13.7 Plt Count (130-400) 10^3/uL 243 MPV (8.0-11.0) fL 9.6 Immature Gran % 0.6 Neutrophils % 64.9 Lymphocytes % 23.9 Monocytes % 7.3 Eosinophils % 2.5 Basophils % 0.8 Nucleated RBC % (0.0-0.3) % 0.0 Absolute Neutrophils (1.2-6.7) 10^3/uL 5.49 Absolute Lymphocytes (1.2-3.4) 10^3/uL 2.02 Absolute Monocytes (0.1-0.8) 10^3/uL 0.62 Absolute Eosinophils (0.0-0.7) 10^3/uL 0.21 Absolute Basophils (0.0-0.2) 10^3/uL 0.07 PT (9.3-11.0) sec 10.0 INR (0.9-1.1) 1.0 APTT (21.0-27.5) sec 24.8 Sodium (136-145) mmol/L 140 Potassium (3.5-5.1) mmol/L 3.8 Chloride (98-107) mmol/L 103 Carbon Dioxide (21.0-32.0) mmol/L 30.3 Anion Gap (3-11) mmol/L 6.7 BUN (7-18) mg/dL 17 Creatinine (0.55-1.02) mg/dL 0.8 Est GFR (CKD-EPI 2020) (mL/min/1.73m2) 75.37 Glucose (74-106) mg/dL 162 H Calcium (8.5-10.1) mg/dL 9.1 Total Bilirubin (0.2-1.0) mg/dL 0.5 AST (15-37) U/L 25 ALT (14-59) U/L 26 Alkaline Phosphatase (46-116) U/L 127 H Creatine Kinase (26-192) U/L 68 Troponin I (<or=60) ng/L < 50 Total Protein (6.4-8.2) g/dL 7.9 Albumin (3.4-5.0) g/dL 4.0 Urine Color (Yellow) Urine Clarity (Clear) Urine pH (5-8) Ur Specific [place] (1.005-1.025) Urine Protein (Negative) mg/dL Urine Ketones (Negative) mg/dL Urine Blood (Negative) Urine Nitrite (Negative) Urine Bilirubin (Negative) Urine Urobilinogen (Up TO 0.2) EU/dL Ur Leukocyte Esterase (Negative) Urine Glucose (Negative) mg/dL Urine Opiates Screen (Negative) Urine Methadone Screen (Negative) Ur Barbiturates Screen (Negative) Ur Tricyclics Screen (Negative) Ur Amphetamines Screen (Negative) U Benzodiazepines Scrn (Negative) Urine Cocaine Screen (Negative) Ur THC Screen (Negative) Range/Units 10/17/22 10/17/22 10/17/22 19:35 19:35 21:50 WBC (4.4-10.8) 10^3/uL RBC (3.93-5.22) 10^6/uL Hgb (11.2-15.7) g/dL Hct (36.0-46.0) % MCV (80-95) fL MCH (27.0-33.0) pg MCHC (32.0-36.0) % RDW (11.7-14.6) % Plt Count (130-400) 10^3/uL MPV (8.0-11.0) fL Immature Gran % Neutrophils % Lymphocytes % Monocytes % Eosinophils % Basophils % Nucleated RBC % (0.0-0.3) % Absolute Neutrophils (1.2-6.7) 10^3/uL Absolute Lymphocytes (1.2-3.4) 10^3/uL Absolute Monocytes (0.1-0.8) 10^3/uL Absolute Eosinophils (0.0-0.7) 10^3/uL Absolute Basophils (0.0-0.2) 10^3/uL PT (9.3-11.0) sec INR (0.9-1.1) APTT (21.0-27.5) sec Sodium (136-145) mmol/L Potassium (3.5-5.1) mmol/L Chloride (98-107) mmol/L Carbon Dioxide (21.0-32.0) mmol/L Anion Gap (3-11) mmol/L BUN (7-18) mg/dL Creatinine (0.55-1.02) mg/dL Est GFR (CKD-EPI 2020) (mL/min/1.73m2) Glucose (74-106) mg/dL Calcium (8.5-10.1) mg/dL Total Bilirubin (0.2-1.0) mg/dL AST (15-37) U/L ALT (14-59) U/L Alkaline Phosphatase (46-116) U/L Creatine Kinase (26-192) U/L Troponin I (<or=60) ng/L < 50 Total Protein (6.4-8.2) g/dL Albumin (3.4-5.0) g/dL Urine Color (Yellow) Yellow Urine Clarity (Clear) Clear Urine pH (5-8) 7.0 Ur Specific [place] (1.005-1.025) 1.010 Urine Protein (Negative) mg/dL Negative Urine Ketones (Negative) mg/dL Negative Urine Blood (Negative) Negative Urine Nitrite (Negative) Negative Urine Bilirubin (Negative) Negative Urine Urobilinogen (Up TO 0.2) EU/dL 0.2 Ur Leukocyte Esterase (Negative) Negative Urine Glucose (Negative) mg/dL Negative Urine Opiates Screen (Negative) Negative Urine Methadone Screen (Negative) Negative Ur Barbiturates Screen (Negative) Negative Ur Tricyclics Screen (Negative) Negative Ur Amphetamines Screen (Negative) Negative U Benzodiazepines Scrn (Negative) Negative Urine Cocaine Screen (Negative) Negative Ur THC Screen (Negative) Negative ECG Data Attestation: I personally reviewed and interpreted this ECG (s) as follows: Interpretation: #1 -- rate of 76, sinus, left axis, no stemi. #2 -- rate of 73, sinus, left axis, no stemi. Sign Out Sign Out Data: Sign Out Comment: hx of CVA, labile BP, shaking spells resolved; pending repeat trop, UA, reassess for dc Last updated by Flaco Parrish MD at 10/17/22 20:08 Discharge Plan Disposition Patient Disposition: Home Condition: Improving Discharge Details Clinical Impression: Episode of shaking, Hypertension, Chest pain Primary Care Provider: Ximena Graham ED Provider: Karen Pozo Home Meds and New Rx's Prescriptions: Continued levalbuterol tartrate [Xopenex HFA] 45 mcg/actuation HFA aerosol inhaler 2 inh inhalation Q6H multivitamin tablet 1 tab PO DAILY lisinopril 20 mg tablet 20 mg PO BID cyanocobalamin (vitamin B-12) [Vitamin B-12] 500 mcg tablet 500 mcg PO DAILY rosuvastatin 20 mg tablet 20 mg PO DAILY Rx Instructions: take with 10 mg for a total of 30 mg daily. rosuvastatin 10 mg tablet 10 mg PO DAILY Label Comments: TAKE 1 TABLET BY MOUTH ONCE DAILY WITH 20MG TAB FOR 30 MG DAILY. diazepam [Valium] 5 mg tablet 5 mg PO BID PRN labetalol 200 mg tablet See Rx Instructions PO BID Rx Instructions: 1 TAB QAM 1/2 TAB QHS PO twice a day; TAKE ONE TABLET BY MOUTH EVERY MORNING AND ONE HALF TABLET AT BEDTIME. Levemir FlexTouch U-100 Insuln 100 unit/mL (3 mL) insulin pen 24 unit SUBCUT BID Rx Instructions: 09/29/22 24 UN QAM, 22 U QHS acetaminophen [Acetaminophen Extra Strength] 500 mg Tablet 500 mg PO Q6H PRN amlodipine 10 mg tablet 10 mg PO DAILY Label Comments: TAKE 1 TABLET BY MOUTH ONCE DAILY cholecalciferol (vitamin D3) [Vitamin D3] 50 mcg (2,000 unit) Capsule 50 mcg PO DAILY gabapentin 300 mg capsule 300 mg PO TID PRN Rx Instructions: sig: one tab qAM, and one tab HS.; third time is prn famotidine 40 mg tablet 40 mg PO DAILY Qty: 30 0RF clopidogrel 75 mg tablet 75 mg PO DAILY Label Comments: TAKE 1 TABLET BY MOUTH ONCE DAILY Discharge Instructions Instructions: Chest Pain (ED), Hypertension (ED) Additional Instructions: Your blood tests, EKGs and imaging today are reassuring and show no evidence of acute concerning or significant findings. Drink plenty of fluids and get plenty of rest. Continue to take your regular medications as directed. Take the Ativan as needed and directed for symptoms of shaking or chest pain. Follow-up with your primary care doctor in 1 week for reevaluation and for referral for outpatient stress test if indicated. Return to the emergency department with any worsening or new concerning symptoms. Discharge Data Discharge Physician: Karen Pozo
[2022-10-17] MEDS: ACETAMINOPHEN 1,000 MG/100 ML BTL 400 MG IVPB (21:25)
[2022-10-17] MEDS: LORazepam 0.5 MG TAB PO (21:25)
[2022-10-17] MEDS: Famotidine 20 MG/2 ML VIAL IVP (21:25)
--- NOTE | 2022-10-17 21:45 | RT.EKG_ITS ---
APPROVED REPORT Exam: Resting ECG Reason for Exam: chest pain Patient Location: E HR:73 bpm ECG Measurements Heart Rate 73 AXIS AR 260 P 12 QRSd 96 QRS -17 QT 449 T 66 QTc 493 Conclusion Sinus rhythm...normal P axis, V-rate 60- 99 Prolonged AR interval...AR >220, V-rate 50- 90 Low voltage, precordial leads...precordial leads <1.0mV Left ventricular hypertrophy...multiple voltage criteria. Sinus. No STEMI. I have reviewed and interpreted ECG and agree with software generated interpretation.
[2022-10-17 22:15] LABS: Troponin I < 50 ng/L (<or=60)
== END 2022-10-17 23:20 | disposition home or self-care (01) ==
PROVIDERS: Emergency Medicine; Emergency Provider Physician Assistant; PCP Nurse Practitioner Family
DX: I10 Essential (primary) hypertension; R07.9 Chest pain, unspecified; M25.512 Pain in left shoulder; R25.1 Tremor, unspecified; R47.1 Dysarthria and anarthria; Z86.73 Personal history of transient ischemic attack (TIA), and cerebral infarction without residual deficits; Z79.02 Long term (current) use of antithrombotics/antiplatelets
CPT/HCPCS: 36415; 36416; 70496; 70498; 80053; 80307; 82550; 82962; 93005; 96361; 96365; 99285; 71045; 81003; 84484; 85025; 85610; 85730; 93010; J0131; J3490

== ENCOUNTER → 2022-10-25 13:34 | Outpatient (BNVA) | payer MEDICARE, OTHER, SELFPAY | PROVIDERS: PCP Nurse Practitioner Family; Referring Provider Nurse Practitioner Family; Visit Provider Student in an Organized Health Care Education/Training Program | DX: M65.331 Trigger finger, right middle finger (principal) | CPT/HCPCS: 20550; J1030 ==

== ENCOUNTER 2022-10-28 16:17 | Emergency (ER) | payer MEDICARE, OTHER, SELFPAY ==
[2022-10-28] VITALS (52 sets, daily range): BP systolic 177–184; BP diastolic 85–86; PULSE 73–89; RESP 1–18; TEMP 37; O2SAT 91–97
--- NOTE | 2022-10-28 16:15 | RT.EKG_ITS ---
APPROVED REPORT Exam: Resting ECG Reason for Exam: chest pain, sob Patient Location: E HR:68 bpm ECG Measurements Heart Rate 68 AXIS WI 250 P -9 QRSd 96 QRS -20 QT 436 T 61 QTc 464 Conclusion Sinus rhythm...normal P axis, V-rate 60- 99 Prolonged WI interval...WI >220, V-rate 50- 90
--- NOTE | 2022-10-28 17:00 | DI.RAD_ITS ---
Exam(s) XR CHEST 2V PA LATERAL EXAM: XR CHEST 2V PA LATERAL CLINICAL HISTORY: cough TECHNIQUE: 2D digital imaging was performed of the chest. Two images were obtained. PA and lateral views were obtained. COMPARISON: CR,XR XR CHEST 2V PA LATERAL from 10/21/2021 FINDINGS: MEDIASTINUM: There is a calcified lymph node in the mediastinum. HEART: Normal. PULMONARY VASCULATURE: Normal. LUNGS: The lungs appear hyperinflated suggesting underlying COPD. Calcified granuloma are present in the lungs. No focal infiltrates are seen. PLEURAL SPACE: No pleural effusion or pneumothorax. BONE:Within normal limits for the patient's age. OTHER FINDINGS:Normal. IMPRESSION: No acute pulmonary findings. DATA REPOSITORY: RADIATION DOSE DELIVERED:
--- NOTE | 2022-10-28 17:05 | ED.GENADUL_ITS ---
Discharge Plan Disposition Patient Disposition: Home Condition: Stable Discharge Details Clinical Impression: Bronchitis, Heart block AV first degree, COPD (chronic obstructive pulmonary disease), Chest pain Primary Care Provider: Ximena Graham ED Provider: Jovanni Haley Home Meds and New Rx's Prescriptions: New amoxicillin 875 mg tablet 875 mg PO BID Qty: 14 0RF Continued levalbuterol tartrate [Xopenex HFA] 45 mcg/actuation HFA aerosol inhaler 2 inh inhalation Q6H multivitamin tablet 1 tab PO DAILY lisinopril 20 mg tablet 20 mg PO BID cyanocobalamin (vitamin B-12) [Vitamin B-12] 500 mcg tablet 500 mcg PO DAILY rosuvastatin 20 mg tablet 20 mg PO DAILY Rx Instructions: take with 10 mg for a total of 30 mg daily. rosuvastatin 10 mg tablet 10 mg PO DAILY Label Comments: TAKE 1 TABLET BY MOUTH ONCE DAILY WITH 20MG TAB FOR 30 MG DAILY. diazepam [Valium] 5 mg tablet 5 mg PO BID PRN Rx Instructions: PT finished. No longer using it. labetalol 200 mg tablet See Rx Instructions PO BID Rx Instructions: 1 TAB QAM 1/2 TAB QHS PO twice a day; TAKE ONE TABLET BY MOUTH EVERY MORNING AND ONE HALF TABLET AT BEDTIME. Levemir FlexTouch U-100 Insuln 100 unit/mL (3 mL) insulin pen 24 unit SUBCUT BID Rx Instructions: 09/29/22 24 UN QAM, 22 U QHS acetaminophen [Acetaminophen Extra Strength] 500 mg Tablet 500 mg PO Q6H PRN amlodipine 10 mg tablet 10 mg PO DAILY Label Comments: TAKE 1 TABLET BY MOUTH ONCE DAILY cholecalciferol (vitamin D3) [Vitamin D3] 50 mcg (2,000 unit) Capsule 50 mcg PO DAILY gabapentin 300 mg capsule 300 mg PO TID PRN Rx Instructions: sig: one tab qAM, and one tab HS.; third time is prn famotidine 40 mg tablet 40 mg PO DAILY Qty: 30 0RF clopidogrel 75 mg tablet 75 mg PO DAILY Label Comments: TAKE 1 TABLET BY MOUTH ONCE DAILY Discharge Instructions Instructions: Acute Bronchitis (ED) Additional Instructions: Please take full course of antibiotic as prescribed. Please use your inhaler as prescribed. Please contact your primary care physician to arrange follow-up. Call tomorrow. I recommend you be seen in reassessment early next week. Return to the ER immediately for any worsening or new concerning symptoms. Referrals: Ximena Graham [Primary Care Provider] - Discharge Data Discharge Date/Time-TO BE ENTERED AT DEPARTURE: 10/28/22 21:08 Medical Decision Making 171 --77-year-old female here with persistent cough over the past 4 days, a ssociated chills and also right sided chest discomfort. Patient is saturating well in no respiratory distress. She currently hypertensive. Consider ACS. EKG was reviewed and interpreted by me: Sinus rhythm 60 bpm with first-degree heart block, NE interval 250, anterior Q waves are present, please see report. Plan to check troponin given chest pain. Am concerned about bacterial pneumonia versus viral infection including COVID. I did obtain chest x-ray and fluid testing. 1844 --chest x-ray was interpreted by radiology: IMPRESSION: 1. Hyperinflation consistent with emphysema/COPD. 2. No acute infiltrates or edema. 3. Granulomatous calcified lung nodules and left AP window lymph node. 4. Degenerative skeletal changes. Plan to give DuoNeb to see if this gives any relief of symptoms. Will proceed to CT of the chest to assess for pulmonary embolism. 1999 --CT of the chest was interpreted by radiology: IMPRESSION: 1. COPD. Bronchial wall thickening which could represent acute or chronic bronchitis. No acute infiltrates. 2. Calcified lung granulomas with benign appearance. 3. No pulmonary arterial embolism is evident. Labs reviewed and nondiagnostic. Initial troponin negative. Will initiate treatment with doxycycline. Will check delta troponin and if negative will discharge with treatment for bronchitis. Plan will be for close outpatient follow-up. Patient knows she should return immediately for any worsening or new concerning symptoms. HPI General Mode of arrival: ambulatory . Date/Time Provider Initiated Documentation: 10/28/22 17:00 . Limitations to Documentation: no limitations . Information obtained by: patient . HPI Narrative: 77-year-old female with multi medical problems including history of prior CVA with residual right-sided weakness, here with chief complaint of cough. Patient notes cough started 4 days ago and has persisted. Cough is moderate to severe. She has some associated shortness of breath. She has had subjective fever. Patient also notes some right-sided chest discomfort described as heaviness. Patient was seen at primary care physician and sent to ED for further evaluation today. Related Data Home Medications Medication Instructions Recorded Confirmed cyanocobalamin (vitamin B-12) 500 500 mcg PO DAILY 07/11/18 10/28/22 mcg tablet (Vitamin B-12) lisinopril 20 mg tablet 20 mg PO BID 07/11/18 10/28/22 multivitamin 1 tab PO DAILY 07/11/18 10/28/22 acetaminophen 500 mg tablet 500 mg PO Q6H PRN 07/23/20 10/28/22 (Acetaminophen Extra Strength) amlodipine 10 mg tablet 10 mg PO DAILY 07/23/20 10/28/22 cholecalciferol (vitamin D3) 50 50 mcg PO DAILY 07/23/20 10/28/22 mcg (2,000 unit) capsule (Vitamin D3) gabapentin 300 mg capsule 300 mg PO TID PRN 07/23/20 10/28/22 famotidine 40 mg tablet 40 mg PO DAILY #30 tabs 07/25/20 10/28/22 diazepam 5 mg tablet (Valium) 5 mg PO BID PRN 11/09/21 10/28/22 rosuvastatin 10 mg tablet 10 mg PO DAILY 11/09/21 10/28/22 rosuvastatin 20 mg tablet 20 mg PO DAILY 11/09/21 10/28/22 labetalol 200 mg tablet See Rx Instructions PO BID 01/12/22 10/28/22 levalbuterol tartrate 45 2 inh inhalation Q6H 03/23/22 10/28/22 mcg/actuation aerosol inhaler (Xopenex HFA) insulin detemir U-100 100 unit/mL 24 unit subcut BID 09/29/22 10/28/22 (3 mL) subcutaneous pen (Levemir FlexTouch U-100 Insulin) clopidogrel 75 mg tablet 75 mg PO DAILY 10/17/22 10/28/22 amoxicillin 875 mg tablet 875 mg PO BID #14 tabs 10/28/22 Previous Rx's Medication Instructions Recorded famotidine 40 mg tablet 40 mg PO DAILY #30 tabs 07/25/20 amoxicillin 875 mg tablet 875 mg PO BID #14 tabs 10/28/22 Allergies Allergy/AdvReac Type Severity Reaction Status Date / Time aspirin Allergy Severe GI Bleed Verified 10/28/22 17:21 Calcium Channel Blocking Allergy Severe Verified 10/28/22 17:21 Agent Dilt ibuprofen [From Motrin] Allergy Severe GI Bleed Verified 10/28/22 17:21 pneumococcal vaccine Allergy Severe Verified 10/28/22 17:21 [From Pneumovax-] pregabalin Allergy Severe Verified 10/28/22 17:21 Tetracyclines Allergy Severe Makes my Verified 10/28/22 17:21 skin peel and throat close up buspirone Allergy Unknown Verified 10/28/22 17:21 codeine Allergy Unknown Verified 10/28/22 17:21 pentazocine [From Talwin] Allergy Unknown Verified 10/28/22 17:21 sulfamethoxazole Allergy Unknown Verified 10/28/22 17:21 [From Bactrim] trimethoprim [From Bactrim] Allergy Unknown Verified 10/28/22 17:21 furosemide [From Lasix] Allergy Unverified 10/28/22 17:21 glipizide Allergy Unverified 10/28/22 17:21 metformin Allergy Unverified 10/28/22 17:21 sertraline Allergy Unverified 10/28/22 17:21 spironolactone Allergy Unverified 10/25/22 13:39 ciprofloxacin [From Cipro] AdvReac Severe made my Verified 10/28/22 17:21 stomach bleed duloxetine [From Cymbalta] AdvReac Severe made me Verified 10/28/22 17:21 sick and suicidal prednisone AdvReac Severe Raises BP Verified 10/28/22 17:21 and blood sugar per Pt tramadol AdvReac Severe major GI Verified 10/28/22 17:21 upset oxycodone [From Percocet] AdvReac Unknown Verified 10/28/22 17:21 propoxyphene AdvReac Unknown Verified 10/28/22 17:21 [From Darvocet-N] General Stated Complaint: SOB RADHA: 3 Review of Systems All systems reviewed & are unremarkable except as noted in HPI and below Constitutional Constitutional: Reports fever(s) Cardiovascular Cardiovascular: Reports as per HPI, Reports chest pain and Reports dyspnea Respiratory Respiratory: Reports cough and Reports dyspnea PFSH All Active Problems (Updated 10/28/22 @ 20:13 by Jovanni Haley MD) Bronchitis (Acute) Heart block AV first degree (Acute) COPD (chronic obstructive pulmonary disease) (Chronic) Chest pain (Acute) Episode of shaking (Acute) Hypertension (Chronic) Chest pain (Acute) Hearing loss (Acute) Trigger finger, right middle finger (Acute) 40 mg Depo-Medrol injection: 10/27/2022 Nasal congestion (Acute) Impairment of speech discrimination (Acute) Sensorineural hearing loss, bilateral (Acute) Decreased hearing (Acute) Transient neurological symptoms (Acute) Pulmonary nodule (Acute) Breast pain, left (Acute) Fatigue (Acute) Dermatitis (Acute) Body mass index [BMI] 31.0-31.9, adult (Acute) Depression (Chronic) Dyspnea on exertion (Acute) Atypical chest pain (Acute) Chest pain (Acute) Painful orthopaedic hardware (Acute) Status post removal of syndesmotic screw DOS: 04/16/2021 CVA (cerebral vascular accident) (Chronic) Diabetes mellitus (Chronic) COPD without exacerbation (Acute) Neuropathy (Acute) DVT prophylaxis (Acute) Discharge planning issues (Acute) Fever (Acute) Vulvitis (Acute) 06/2020. Unclear etiology. Rx with topical yeast/steroid. 08/2020. punch bx of R vaginal vestibule. 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 Lipoma of extremity (Acute) Arthritis of knee, left (Acute) Depo-Medrol injection: 04/06/2022; 08/05/2021; 04/29/2021 S/P skin biopsy (Acute) 08/2020. R side of vaginal vestibule. Bimalleolar fracture of right ankle (Acute 03/16/20) March 2020 s/p ORIF Periprosthetic fracture around internal prosthetic right knee joint, initial encounter (Acute 03/16/20) March 2020 s/p ORIF Status post total knee replacement, right (Acute 02/05/19) Dr. Monge Hypertension (Chronic) Medical History Adjustment disorder with anxiety Ankle pain, right Arthralgia of wrist, right Arthritis of knee, right Belching Bilateral leg edema Cerebral hemorrhage(nontraumatic) Generalized arthritis GI bleed Gout Headache Hiatal hernia History of depression meds in past presently on no rx for depression History of hemorrhagic stroke with residual hemiparesis (R) Hyperlipidemia Knee pain, left LUQ pain Neck pain on right side TIM (obstructive sleep apnea) has used cpap in past presently not using Osteoarthritis RUQ pain Shoulder pain, right Skin tag Vulvar irritation Surgical History History of appendectomy History of arthroscopic knee surgery History of colonoscopy History of hysterectomy Family History Father Heart disease Social History Smoking/Tobacco Use Status: Never Smoking risk assessment performed?: Yes Alcohol Intake: never Drug use: Never Substance use type: does not use Household members: significant other Number of Children: 0 current occupation: retired. Pets and animals: No Current gender identity: female What is your relationship status?: Panel score (0-1 are the most socially isolated patients): 0 What type of physical activity do you participate in: none Seatbelt use: always Do you feel safe at home: Yes Do you feel safe in your relationship?: Yes Female Reproductive History Menstrual Menopause type: surgical Exam Const General: cooperative and no acute distress Orientation: alert and awake HENMT Mouth: moist mucous membranes Eyes Conjunctivae: normal conjunctivae Sclera: normal sclerae Neck Neck: trachea midline and supple Resp Effort & Inspection: normal respiratory effort and cough Auscultation: rales bilaterally, rhonchi (Bilateral) and no wheezes Cardio Rate: regular rate and not tachycardic Rhythm: regular rhythm GI Palpation: soft, not firm, no guarding, no masses, not rigid and nontender Skin General skin exam: no rashes or lesions noted Neuro General: patient alert, patient awake and tone normal Extrem General: no calf tenderness and no edema Psych Appearance: grossly normal Mental Status: mental status grossly normal Course Vital Signs Vital signs: Vital Signs Temperature 37 C 10/28/22 16:22 Pulse 89 10/28/22 16:22 Respiratory Rate 18 10/28/22 16:22 Blood Pressure 177/86 H 10/28/22 16:22 Pulse Oximetry 97 10/28/22 16:22 Temperature 37 C 10/28/22 16:22 Temperature Source Temporal Artery Scan 10/28/22 16:22 Pulse 89 10/28/22 16:22 Respiratory Rate 18 10/28/22 16:22 Respiratory Effort 10/28/22 16:25 Respiratory Depth Normal 10/28/22 16:25 Respiratory Pattern Normal 10/28/22 16:25 Blood Pressure 177/86 H 10/28/22 16:22 Pulse Oximetry 97 10/28/22 16:22 Oxygen Delivery Method Room Air 10/28/22 16:22 Oxygen Flow Rate 0 10/28/22 16:22 Pain Level 6 10/28/22 16:22
[2022-10-28 17:10] LABS: Lactate 1.4 mmol/L (0.6-1.4)
[2022-10-28 17:13] LABS: Abs Immature Grans 0.05 10^3/uL (0.0-0.06); Absolute Eosinophil Count 0.33 10^3/uL (0.0-0.7); Absolute Monocyte Count 0.73 10^3/uL (0.1-0.8); Absolute Neutrophil Count 7.75 10^3/uL (1.2-6.7); Basophils % 0.9; Eosinophils % 2.9; HCT 42.6 % (36.0-46.0); HGB 13.3 g/dL (11.2-15.7); Immature Grans % 0.4; Lymphocytes % 20.4; MCH 28.3 pg (27.0-33.0); MCHC 31.2 % (32.0-36.0); MCV 91 fL (80-95); MPV 10.1 fL (8.0-11.0); Monocytes % 6.5; Neutrophils % 68.9; Platelet Count 276 10^3/uL (130-400); RDW 13.5 % (11.7-14.6); RDW-SD 45.3 fL; WBC 11.25 10^3/uL (4.4-10.8)
[2022-10-28 17:30] LABS: ALT 26 U/L (14-59); AST 21 U/L (15-37); Albumin 4.3 g/dL (3.4-5.0); Alkaline Phosphatase 139 U/L (46-116); Anion Gap 6.8 mmol/L (3-11); BUN 15 mg/dL (7-18); Bilirubin, Total 0.6 mg/dL (0.2-1.0); CO2 32.2 mmol/L (21.0-32.0); CREATININE 0.8 mg/dL (0.55-1.02); Calcium 9.7 mg/dL (8.5-10.1); Chloride 104 mmol/L (98-107); Estimated GFR 75.37 (mL/min/1.73m2); Glucose 198 mg/dL (74-106); Magnesium 2.1 mg/dL (1.8-2.4); Potassium 3.7 mmol/L (3.5-5.1); Sodium 143 mmol/L (136-145); Total Protein 8.4 g/dL (6.4-8.2); Troponin I < 50 ng/L (<or=60)
--- NOTE | 2022-10-28 18:08 | DI.VRAD_ITS ---
PROCEDURE INFORMATION: Exam: XR Chest Exam date and time: 10/28/2022 5:52 PM Age: 77 years old Clinical indication: Cough and shortness of breath TECHNIQUE: Imaging protocol: Radiologic exam of the chest. Views: 2 views. COMPARISON: XR CHEST 1V IN DI DEPT 10/17/2022 6:59 PM FINDINGS: Lungs: Moderate hyperinflation consistent with emphysema/COPD. Scattered small calcified granulomatous nodules in both lungs. Stable appearance since 10/17/2022. No acute infiltrates. No edema. Pleural spaces: No pleural effusion. Heart/Mediastinum: Normal heart size. Vasculature: Ectatic appearance of thoracic aorta. Bones/joints: Degenerative thoracic spine disease. IMPRESSION: 1. Hyperinflation consistent with emphysema/COPD. 2. No acute infiltrates or edema. 3. Granulomatous calcified lung nodules and left AP window lymph node. 4. Degenerative skeletal changes. Dictated and Authenticated by: Mitchell Ferris MD. Ordering:ENIO Baig MD
[2022-10-28 18:11] LABS: COVID-19 PCR Negative (Negative); Influenza A PCR Negative (Negative); Influenza B PCR Negative (Negative); RSV PCR Negative (Negative)
[2022-10-28 18:13] LABS: Source Nasopharynx
--- NOTE | 2022-10-28 18:45 | DI.CT_ITS ---
Exam(s) CT CHEST PE CTA EXAM: CT CHEST PE CTA CLINICAL HISTORY: right chest pain, cough, sob. TECHNIQUE: Imaging Protocol: Axial CT angiography was performed with multi-slice acquisition and mu lti-planar and/or 3D reconstructions. CONTRAST MATERIAL: Intravenous: Omnipaque 350 contrast volume:100 mL COMPARISON: CT CT CHEST WO from 05/24/[address] BRAIN NECK CTA from 10/17/2022 CR,XR XR CHEST 2V PA LATERAL from 10/28/2022 FINDINGS: Tracheobronchial tree: Patent where visualized. There is mild bronchial wall thickening. Pulmonary parenchyma: No consolidation or dominant measurable mass. Atelectatic changes are seen in t he lung bases. Multiple calcified granuloma present in the lungs. Pulmonary Arteries: No evidence of filling defect to suggest pulmonary emboli. Mediastinum and Bessy: No dominant adenopathy or fluid collection. The esophagus is unremarkable. Ca lcified mediastinal lymph nodes consistent with granulomatous disease. Visualized thyroid gland: Unremarkable. Pleura: No effusion or pneumothorax. Heart: Cardiomegaly. Coronary artery calcifications are present. No pericardial effusion. Aorta: Thoracic aorta non-dilated. No evidence of dissection. There is mild atherosclerosis. Upper abdomen: Unremarkable. Soft tissues: Unremarkable. Bones: Within normal limits for the patient's age. IMPRESSION: 1. No evidence of pulmonary embolism, thoracic aortic dissection or aneurysm. 2. Mild bronchial wall thickening which may reflect acute or chronic bronchitis. No focal consolidati ng infiltrates. RADIATION DOSE DELIVERED: 452.76mGy.cm Total DLP DATA REPOSITORY: All CT scans at this facility are submitted to the National Radiology Data Registry (NRDR) Dose Index Registry (DIR) with the [employer] (ACR). RADIATION OPTIMIZATION: All CT scans at this facility use at least one of these dose optimization te chniques: automated exposure control; mA and/or kV adjustment per patient size (includes targeted exa ms where dose is matched to clinical indication); or iterative reconstruction.
[2022-10-28] MEDS: Albuterol/Ipratropium 3 ML UPD VIAL UPD (18:54)
[2022-10-28] MEDS: Omnipaque 350 MG/ML 100 ML BTL IJ (19:40)
[2022-10-28] MEDS: Normal Saline - Diluent 50 ML VIAL IJ (19:40)
--- NOTE | 2022-10-28 19:52 | DI.VRAD_ITS ---
PROCEDURE INFORMATION: Exam: CTA Chest With Contrast Exam date and time: 10/28/2022 7:35 PM Age: 77 years old Clinical indication: Cough and shortness of breath and other: Right chest pain TECHNIQUE: Imaging protocol: Computed tomographic angiography of the chest with contrast. 3D rendering (Not supervised by radiologist): MIP and/or 3D reconstructed images were created by the technologist. Contrast material: 350; Contrast volume: 100 ml; Contrast route: INTRAVENOUS (IV); COMPARISON: CT THORAX ABD/PEL CTA 08/28/2021 7:32 PM FINDINGS: Pulmonary arteries: Pulmonary artery opacification is of good technical qualit. No definable embolism. Aorta: Unremarkable. No aortic aneurysm. No aortic dissection. Lungs: Bilateral mild bronchiectasis and bronchial wall thickening suggesting COPD and bronchitis. Bronchitis might be acute or chronic. Recommend clinical correlation. No focal infiltrative lung changes. Small calcified nodule in the subpleural right mid lung zone measuring 4 mm. Additional small calcified granuloma in the lateral left lower lobe measuring approximally 3 mm. Posteromedial left lower lobe calcified granuloma measuring 6 mm. Pleural spaces: No pleural fluid. Heart: Moderate cardiac enlargement. Moderate coronary artery atherosclerotic calcium. No pericardial effusion. Lymph nodes: Calcified granulomatous hilar and mediastinal nodes.. No enlarged lymph nodes. Bones/joints: Degenerative thoracic spine changes. Multilevel benign vertebral body hemangiomas. Soft tissues: Unremarkable. IMPRESSION: 1. COPD. Bronchial wall thickening which could represent acute or chronic bronchitis. No acute infiltrates. 2. Calcified lung granulomas with benign appearance. 3. No pulmonary arterial embolism is evident. Dictated and Authenticated by: Mitchell Ferris MD. Ordering:ENIO Baig MD
[2022-10-28 20:27] LABS: Troponin I < 50 ng/L (<or=60)
== END 2022-10-28 21:08 | disposition home or self-care (01) ==
PROVIDERS: Emergency Provider Student in an Organized Health Care Education/Training Program; PCP Nurse Practitioner Family
DX: I44.0 Atrioventricular block, first degree (principal); J44.9 Chronic obstructive pulmonary disease, unspecified; J40 Bronchitis, not specified as acute or chronic; I10 Essential (primary) hypertension; Z86.73 Personal history of transient ischemic attack (TIA), and cerebral infarction without residual deficits; Z20.822 Contact with and (suspected) exposure to COVID-19
CPT/HCPCS: 71275; 80053; 87637; 93005; 94640; 99285; 71046; 83605; 83735; 84484; 85025; 93010; J3490; J7620

== ENCOUNTER 2022-11-09 09:29 | Emergency (ER) | payer MEDICARE, OTHER, SELFPAY ==
[2022-11-09] VITALS (163 sets, daily range): BP systolic 138–180; BP diastolic 49–81; PULSE 64–79; RESP 10–30; TEMP 36.6–36.7; O2SAT 96–100
--- NOTE | 2022-11-09 09:30 | RT.EKG_ITS ---
APPROVED REPORT Exam: Resting ECG Reason for Exam: chest discomfort Patient Location: E HR:71 bpm ECG Measurements Heart Rate 71 AXIS WV 252 P -11 QRSd 94 QRS -18 QT 415 T 73 QTc 450 Conclusion Sinus rhythm. Ventricular premature complex. Prolonged WV interval.. Low voltage, precordial leads
--- NOTE | 2022-11-09 09:34 | ED.GENADUL_ITS ---
Discharge Plan Disposition Patient Disposition: Home Condition: Improving Discharge Details Clinical Impression: COPD exacerbation, Hypertension, Atypical chest pain Primary Care Provider: Ximena Graham ED Provider: Neal Sanchez Home Meds and New Rx's Prescriptions: New prednisone 10 mg tablet 10 mg PO DAILY Qty: 4 0RF Continued multivitamin tablet 1 tab PO DAILY lisinopril 20 mg tablet 20 mg PO BID cyanocobalamin (vitamin B-12) [Vitamin B-12] 500 mcg tablet 500 mcg PO DAILY rosuvastatin 20 mg tablet 20 mg PO DAILY Rx Instructions: take with 10 mg for a total of 30 mg daily. rosuvastatin 10 mg tablet 10 mg PO DAILY Patient Comments: TAKE 1 TABLET BY MOUTH ONCE DAILY WITH 20MG TAB FOR 30 MG DAILY. diazepam [Valium] 5 mg tablet 5 mg PO BID PRN Rx Instructions: PT finished. No longer using it. labetalol 200 mg tablet See Rx Instructions PO BID Rx Instructions: 1 TAB QAM 1/2 TAB QHS PO twice a day; TAKE ONE TABLET BY MOUTH EVERY MORNING AND ONE HALF TABLET AT BEDTIME. Levemir FlexTouch U-100 Insuln 100 unit/mL (3 mL) insulin pen 24 unit SUBCUT BID Rx Instructions: 09/29/22 24 UN QAM, 22 U QHS acetaminophen [Acetaminophen Extra Strength] 500 mg Tablet 500 mg PO Q6H PRN amlodipine 10 mg tablet 10 mg PO DAILY Patient Comments: TAKE 1 TABLET BY MOUTH ONCE DAILY cholecalciferol (vitamin D3) [Vitamin D3] 50 mcg (2,000 unit) Capsule 50 mcg PO DAILY gabapentin 300 mg capsule 300 mg PO TID PRN Rx Instructions: sig: one tab qAM, and one tab HS.; third time is prn clopidogrel 75 mg tablet 75 mg PO DAILY Patient Comments: TAKE 1 TABLET BY MOUTH ONCE DAILY Discharge Instructions Instructions: Chest Pain (ED), COPD (Chronic Obstructive Pulmonary Disease) (ED), Hypertension (ED) Additional Instructions: Please take medication as prescribed and use the inhaler every 2-4 hours as needed for chest tightness or shortness of breath. Please take steroid also as directed and monitor your blood sugar along with make sure you eat a low carbohydrate diet as discussed. If you develop any new or significant worsening of symptoms return to the emergency department for reassessment otherwise follow-up with pulmonology and primary care provider Referrals: Ximena Graham [Primary Care Provider] - 1 week Discharge Data Discharge Date/Time-TO BE ENTERED AT DEPARTURE: 11/09/22 14:17 Medical Decision Making Patient presenting to the emergency department for chief complaint of chest pain for the past 3 days. She states constant dull aching that has been going on since she was diagnosed with bronchitis a few weeks ago which she took her antibiotics but is still having coughing episodes. Patient denies any fever or chills. 3 days ago she started having sharp shooting pains lasting for hours that radiates into her left arm and somewhat into her back. She denies any change in pain pattern with activity or at rest. She does state significant rapid heart rate and shortness of breath with activity. Denies any syncope, lightheadedness, abdominal pain. Physical exam shows clear lung sounds, dry cough noted during exam, normal cardiac exam. No pitting edema no crackles in the lungs. Patient does have significant past medical history of COPD, hypertension CVA, diabetes first-degree AV block, hyperlipidemia. Differential diagnosis to include ACS, continued bronchitis, resistant pneumonia, COPD exacerbation. We will plan on checking labs, EKG, and due to persistent symptoms will perform CT imaging of the chest. Please see physician interpretation for full interpretation of EKG but upon my review patient has rate of 71, sinus rhythm, overall no worrisome changes from EKG performed on 10/28/22 Review of patient's labs show WBC 10.95, slightly elevated neutrophils at 8.33 otherwise unremarkable labs, coagulation unremarkable, CMP shows glucose of 206 and alk phos of 138 otherwise negative CMP, negative initial troponin, negative BNP albumin 4.1. CT imaging was reviewed along with radiologist interpretation that showed no signs of PE, aortic dissection, infection or effusion. Reassessed patient she stated no change in her condition. Upon review of her past medical record with visit similar to this patient had significant improvement after albuterol. I suspect potential causation of COPD exacerbation secondary to bronchitis. Doubt need for further antibiotics at this time. Will give patient DuoNeb pending delta troponin Delta troponin is also negative. Patient reassessed again and did state improvement after DuoNeb. Patient does state that she is pending a referral to pulmonology which I will also place patient on pulmonology follow-up list given and I do suspect respiratory nature to patient's complaint. Discussed with patient risk versus benefit of short burst of low-dose steroids along with tight monitoring of glucose and dietary control along with use of her insulin. We will also discharge patient with albuterol inhaler. At this time I doubt ACS but patient was given close monitoring precautions along with low threshold of return. After discussion of diagnosis and plan of care patient has no further needs, questions, or concerns and states clear understanding to return to the emergency department for any worsening symptoms. This documentation was generated using [employer] dictation system, please disregard any oddities of phrase or misspellings. HPI General Mode of arrival: wheelchair . Date/Time Provider Initiated Documentation: 11/09/22 09:30 . Limitations to Documentation: no limitations . Information obtained by: patient, RN notes reviewed and old records reviewed . History of Present Illness 77 year old F presents to the emergency department with the chief complaint of Chest pain, described as mild, with intensity rated at 3. Quality is described as aching, and is localized to the chest. Patient reports radiation to back. Patient started experiencing this day(s) (3) and it has been constant and other (With intermittent sharp shooting pain). No relieving factors improve symptom(s), No exacerbating factors reported . Patient notes cough; denies fever/chills and malaise. Patient did receive the following treatments prior to arrival, none Related Data Home Medications Medication Instructions Recorded Confirmed cyanocobalamin (vitamin B-12) 500 500 mcg PO DAILY 07/11/18 11/09/22 mcg tablet (Vitamin B-12) lisinopril 20 mg tablet 20 mg PO BID 07/11/18 11/09/22 multivitamin 1 tab PO DAILY 07/11/18 11/09/22 acetaminophen 500 mg tablet 500 mg PO Q6H PRN 07/23/20 11/09/22 (Acetaminophen Extra Strength) amlodipine 10 mg tablet 10 mg PO DAILY 07/23/20 11/09/22 cholecalciferol (vitamin D3) 50 50 mcg PO DAILY 07/23/20 11/09/22 mcg (2,000 unit) capsule (Vitamin D3) gabapentin 300 mg capsule 300 mg PO TID PRN 07/23/20 11/09/22 diazepam 5 mg tablet (Valium) 5 mg PO BID PRN 11/09/21 11/09/22 rosuvastatin 10 mg tablet 10 mg PO DAILY 11/09/21 11/09/22 rosuvastatin 20 mg tablet 20 mg PO DAILY 11/09/21 11/09/22 labetalol 200 mg tablet See Rx Instructions PO BID 01/12/22 11/09/22 insulin detemir U-100 100 unit/mL 24 unit subcut BID 09/29/22 11/09/22 (3 mL) subcutaneous pen (Levemir FlexTouch U-100 Insulin) clopidogrel 75 mg tablet 75 mg PO DAILY 10/17/22 11/09/22 prednisone 10 mg tablet 10 mg PO DAILY #4 tabs 11/09/22 Previous Rx's Medication Instructions Recorded prednisone 10 mg tablet 10 mg PO DAILY #4 tabs 11/09/22 Allergies Allergy/AdvReac Type Severity Reaction Status Date / Time aspirin Allergy Severe GI Bleed Verified 10/28/22 17:21 Calcium Channel Blocking Allergy Severe Verified 10/28/22 17:21 Agent Dilt ibuprofen [From Motrin] Allergy Severe GI Bleed Verified 10/28/22 17:21 pneumococcal vaccine Allergy Severe Verified 10/28/22 17:21 [From Pneumovax-] pregabalin Allergy Severe Verified 10/28/22 17:21 Tetracyclines Allergy Severe Makes my Verified 10/28/22 17:21 skin peel and throat close up buspirone Allergy Unknown Verified 10/28/22 17:21 codeine Allergy Unknown Verified 10/28/22 17:21 pentazocine [From Talwin] Allergy Unknown Verified 10/28/22 17:21 sulfamethoxazole Allergy Unknown Verified 10/28/22 17:21 [From Bactrim] trimethoprim [From Bactrim] Allergy Unknown Verified 10/28/22 17:21 furosemide [From Lasix] Allergy Unverified 10/28/22 17:21 glipizide Allergy Unverified 10/28/22 17:21 metformin Allergy Unverified 10/28/22 17:21 sertraline Allergy Unverified 10/28/22 17:21 spironolactone Allergy Unverified 10/25/22 13:39 ciprofloxacin [From Cipro] AdvReac Severe made my Verified 10/28/22 17:21 stomach bleed duloxetine [From Cymbalta] AdvReac Severe made me Verified 10/28/22 17:21 sick and suicidal prednisone AdvReac Severe Raises BP Verified 10/28/22 17:21 and blood sugar per Pt tramadol AdvReac Severe major GI Verified 10/28/22 17:21 upset oxycodone [From Percocet] AdvReac Unknown Verified 10/28/22 17:21 propoxyphene AdvReac Unknown Verified 10/28/22 17:21 [From Darvocet-N] General Stated Complaint: Chest Pain RADHA: 3 Review of Systems Constitutional Constitutional: Denies chills, Denies fever(s), Denies headache(s) and Reports malaise ENT Ears, Nose, Mouth, and Throat: Denies headache(s), Denies nasal congestion and Denies sore throat Cardiovascular Cardiovascular: Reports as per HPI, Reports chest pain, Denies syncope, Reports rapid heart rate (With activity), Denies claudication, Reports leg edema (Chronic unchanged), Denies lightheadedness, Reports dyspnea and Reports dyspnea on exertion Respiratory Respiratory: Reports cough, Reports dyspnea and Reports dyspnea on exertion Gastrointestinal Gastrointestinal: Denies abdominal pain, Denies nausea and Denies vomiting Genitourinary Genitourinary: Denies dysuria Musculoskeletal Musculoskeletal: Denies back pain Integumentary/Breasts Skin/Breast: Denies rash Neurologic Neurologic: Denies syncope and Denies headache(s) PFSH All Active Problems (Updated 11/12/22 @ 11:35 by Jeannine Fernandez) Lumbar herniated disc (Acute) Allergic rhinitis (Acute) Late, effect, cerebrovascular disease (Acute) PVC (premature ventricular contraction) (Acute) Leg edema (Acute) Nocturnal hypoxia (Acute) Mammogram abnormal (Acute) Pain of both breasts (Acute) Epigastric discomfort (Acute) Psoriasis (Chronic) Joint pain (Acute) Cough (Acute) Dyspnea (Acute) at rest Bronchitis (Acute) Heart block AV first degree (Acute) COPD (chronic obstructive pulmonary disease) (Chronic) Chest pain (Acute) COPD exacerbation (Acute) Episode of shaking (Acute) Hypertension (Chronic) Chest pain (Acute) Hearing loss (Acute) Trigger finger, right middle finger (Acute) 40 mg Depo-Medrol injection: 10/27/2022 Nasal congestion (Acute) Impairment of speech discrimination (Acute) Sensorineural hearing loss, bilateral (Acute) Decreased hearing (Acute) Transient neurological symptoms (Acute) Pulmonary nodule (Acute) Breast pain, left (Acute) Fatigue (Acute) Dermatitis (Acute) Body mass index [BMI] 31.0-31.9, adult (Acute) Depression (Chronic) Dyspnea on exertion (Acute) Atypical chest pain (Acute) Chest pain (Acute) Painful orthopaedic hardware (Acute) Status post removal of syndesmotic screw DOS: 04/16/2021 CVA (cerebral vascular accident) (Chronic) Diabetes mellitus (Chronic) COPD without exacerbation (Acute) Neuropathy (Acute) DVT prophylaxis (Acute) Discharge planning issues (Acute) Fever (Acute) Vulvitis (Acute) 06/2020. Unclear etiology. Rx with topical yeast/steroid. 08/2020. punch bx of R vaginal vestibule. 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 Lipoma of extremity (Acute) Arthritis of knee, left (Acute) Depo-Medrol injection: 04/06/2022; 08/05/2021; 04/29/2021 S/P skin biopsy (Acute) 08/2020. R side of vaginal vestibule. Bimalleolar fracture of right ankle (Acute 03/16/20) March 2020 s/p ORIF Periprosthetic fracture around internal prosthetic right knee joint, initial encounter (Acute 03/16/20) March 2020 s/p ORIF Status post total knee replacement, right (Acute 02/05/19) Dr. Monge Hypertension (Chronic) Medical History (Updated 11/12/22 @ 11:35 by Jeannine Fernandez) Abdominal pain, epigastric Adjustment disorder with anxiety Ankle pain, right Arthralgia of wrist, right Arthritis Arthritis of knee, right Asymptomatic PVCs Belching Bilateral leg edema Breast pain Cerebral hemorrhage(nontraumatic) Generalized arthritis GI bleed Gout Hand joint pain Headache Hiatal hernia History of depression meds in past presently on no rx for depression History of hemorrhagic stroke with residual hemiparesis (R) History of TIAs Hyperlipidemia Hypertension Knee pain, left LUQ pain Neck pain on right side TIM (obstructive sleep apnea) has used cpap in past presently not using Osteoarthritis RUQ pain Sensorineural hearing loss Shortness of breath at rest Shoulder pain, right Skin tag Trigger finger (acquired) Type 2 diabetes mellitus Vulvar irritation Surgical History History of appendectomy History of arthroscopic knee surgery History of colonoscopy History of hysterectomy Family History Father Heart disease Social History (Updated 11/10/22 @ 12:10 by Lyn Fierro) Smoking/Tobacco Use Status: Never Smoking risk assessment performed?: Yes Alcohol Intake: never Drug use: Never Substance use type: does not use Household members: significant other Number of Children: 0 current occupation: retired. Pets and animals: No Current gender identity: female What is your relationship status?: Panel score (0-1 are the most socially isolated patients): 0 What type of physical activity do you participate in: none Seatbelt use: always Do you feel safe at home: Yes Do you feel safe in your relationship?: Yes Female Reproductive History Menstrual Menopause type: surgical Exam Const General: cooperative, comfortable, no acute distress, not diaphoretic and not ill appearing Orientation: alert, awake and oriented x3 Limitations: mental status not altered Neck Neck: normal visual inspection, full ROM, trachea midline, supple and no anterior neck swelling Carotids: normal carotid upstroke and no bruits Chest Chest: normal inspection of the chest, normal palpation of entire chest wall and No rash Resp Effort & Inspection: normal respiratory effort and able to speak in complete sentences Auscultation: clear to auscultation bilaterally Cardio Jugular venous pressure: no JVD Palpation: normal PMI Rate: regular rate Rhythm: regular rhythm Heart Sounds: S1 normal, S2 normal, no click, no gallops, no murmurs and no rubs Bruits: no abdominal aortic bruits and no carotid bruits Pulses: radial pulses present bilaterally 2+ GI Inspection: normal to inspection Palpation: soft, no aortic enlargement, no pulsatile masses and nontender Auscultation: normal bowel sounds Skin General skin exam: no rashes or lesions noted Neuro General: patient alert, patient awake, patient oriented x3, tone normal and moves all extremities
[2022-11-09 10:00] LABS: Abs Immature Grans 0.04 10^3/uL (0.0-0.06); Absolute Basophil Count 0.11 10^3/uL (0.0-0.2); Absolute Eosinophil Count 0.18 10^3/uL (0.0-0.7); Absolute Lymphocyte Count 1.68 10^3/uL (1.2-3.4); Absolute Monocyte Count 0.61 10^3/uL (0.1-0.8); Absolute Neutrophil Count 8.33 10^3/uL (1.2-6.7); Eosinophils % 1.6; HCT 43.3 % (36.0-46.0); HGB 13.6 g/dL (11.2-15.7); Immature Grans % 0.4; Lymphocytes % 15.3; MCH 28.2 pg (27.0-33.0); MCHC 31.4 % (32.0-36.0); MCV 90 fL (80-95); MPV 10.1 fL (8.0-11.0); Monocytes % 5.6; Neutrophils % 76.1; Platelet Count 269 10^3/uL (130-400); RBC 4.82 10^6/uL (3.93-5.22); RDW 13.7 % (11.7-14.6); RDW-SD 44.9 fL; WBC 10.95 10^3/uL (4.4-10.8)
[2022-11-09 10:13] LABS: PTT Activated 22.3 sec (21.5-31.9); Prothrombin Time 10.2 sec (9.3-11.0)
--- NOTE | 2022-11-09 10:15 | DI.CT_ITS ---
Exam(s) CT CHEST PE CTA EXAM: CT CHEST PE CTA CLINICAL HISTORY: chest pain, sob, pain radiating to back. TECHNIQUE: Imaging Protocol: CT angiography of the chest was performed using pulmonary embolus enrique col. Multi planar reconstructions were performed. CONTRAST MATERIAL: Intravenous: Omnipaque 350 Contrast volume: 100 cc COMPARISON: CT CT CHEST PE CTA from 10/28/2022 FINDINGS: CHEST: PULMONARY ARTERIES: There are no obvious intraluminal filling defects to suggest acute pulmonary embo li. LUNGS: There are no infiltrates nor evidence of pulmonary infarction.. There are few calcified granul omas noted bilaterally. There is also a E noncalcified millimeter nodule in the right lung base anter iorly which is probably in the anterior basal segment of the right lower lobe. There are no pleural e ffusions. MEDIASTINUM: There is no hilar nor mediastinal adenopathy. Visualized thyroid unremarkable. CARDIAC: Cardiomegaly. No pericardial effusion.Caliber of the thoracic aorta is within normal limits. There is no evidence of aortic dissection. The left vertebral artery is noted to originate as a sepa rate artery off of the aortic arch. There is no significant shift of the interventricular septum. PARTIALLY VISUALIZED UPPERMOST ABDOMEN: No obvious findings OSSEOUS: No fractures. Intraosseous hemangioma noted in mid-lower thoracic vertebrae.No significant lytic osseous lesions. No blastic osseous lesions.. IMPRESSION: 1. No evidence of acute pulmonary emboli. No evidence of pulmonary infarction.No pleural effusions. 2. No evidence of aortic dissection nor pericardial effusion. Diameter of the ascending thoracic aort a is upper normal. Cardiomegaly noted. 3. Benign-appearing lung nodules noted. No confluent infiltrates nor pleural effusions. Report called by myself to ER provider. RADIATION DOSE DELIVERED: 542.43mGy.cm Total DLP DATA REPOSITORY: All CT scans at this facility are submitted to the National Radiology Data Registry (NRDR) Dose Index Registry (DIR) with the [employer] (A[employer]). RADIATION OPTIMIZATION: All CT scans at this facility use at least one of these dose optimization te chniques: automated exposure control; mA and/or kV adjustment per patient size (includes targeted exa ms where dose is matched to clinical indication); or iterative reconstruction.
[2022-11-09 10:22] LABS: ALT 19 U/L (14-59); AST 22 U/L (15-37); Albumin 4.1 g/dL (3.4-5.0); Alkaline Phosphatase 138 U/L (46-116); Anion Gap 6.2 mmol/L (3-11); BUN 14 mg/dL (7-18); Bilirubin, Total 0.5 mg/dL (0.2-1.0); CO2 30.8 mmol/L (21.0-32.0); CREATININE 0.7 mg/dL (0.55-1.02); Calcium 9.4 mg/dL (8.5-10.1); Chloride 104 mmol/L (98-107); Estimated GFR 88.47 (mL/min/1.73m2); Glucose 206 mg/dL (74-106); Magnesium 1.9 mg/dL (1.8-2.4); NT-proBNP 255 pg/mL (<300); Potassium 3.7 mmol/L (3.5-5.1); Sodium 141 mmol/L (136-145); Total Protein 7.9 g/dL (6.4-8.2); Troponin I < 50 ng/L (<or=60)
[2022-11-09] MEDS: Albuterol/Ipratropium 3 ML UPD VIAL UPD (12:25)
[2022-11-09 13:28] LABS: Troponin I < 50 ng/L (<or=60)
--- NOTE | 2022-11-09 16:21 | NUR.NOTE ---
Nursing Note: Referral faxed to [facility] Pulmonology for COPD in 1 to 2 weeks as available. Referral faxed to PCP for COPD within 1 week.
== END 2022-11-09 14:17 | disposition home or self-care (01) ==
PROVIDERS: Emergency Provider Nurse Practitioner Family; PCP Nurse Practitioner Family
DX: J44.1 Chronic obstructive pulmonary disease with (acute) exacerbation (principal); I10 Essential (primary) hypertension; E11.9 Type 2 diabetes mellitus without complications; I25.2 Old myocardial infarction; E78.2 Mixed hyperlipidemia; D72.829 Elevated white blood cell count, unspecified; Z86.73 Personal history of transient ischemic attack (TIA), and cerebral infarction without residual deficits; Z79.4 Long term (current) use of insulin; Z79.02 Long term (current) use of antithrombotics/antiplatelets; R07.89 Other chest pain
CPT/HCPCS: 36415; 36416; 71275; 80053; 82962; 93005; 99285; 83735; 83880; 84484; 85025; 85610; 85730; 93010; 99284; J7620

== ENCOUNTER 2022-11-14 19:55 | Emergency (ER) | payer MEDICARE, OTHER, SELFPAY ==
--- NOTE | 2022-11-14 19:45 | RT.EKG_ITS ---
APPROVED REPORT Exam: Resting ECG Reason for Exam: short of breath Patient Location: E HR:68 bpm ECG Measurements Heart Rate 68 AXIS NH 234 P 0 QRSd 101 QRS -10 QT 509 T 43 QTc 543 Conclusion Sinus rhythm...normal P axis, V-rate 60- 99 Prolonged NH interval...NH >220, V-rate 50- 90 Prolonged QT interval...QTc >500mS
[2022-11-14 19:56] VITALS: BP 156/78; PULSE 69; RESP 22; TEMP 36.6; O2SAT 99
--- NOTE | 2022-11-14 20:15 | DI.RAD_ITS ---
Exam(s) XR PORTABLE CHEST AP EXAM: XR PORTABLE CHEST AP CLINICAL HISTORY: shortness of breath TECHNIQUE: 2D digital imaging was performed. COMPARISON: CT CT CHEST PE CTA from 11/09/2022 FINDINGS: LUNGS: Suboptimally inflated but grossly clear. No pleural abnormality seen. HEART: Normal size. AORTA: Tortuous BONES: Unremarkable for age. Soft tissues: Unremarkable. IMPRESSION: No acute findings. DATA REPOSITORY: RADIATION DOSE DELIVERED:
--- NOTE | 2022-11-14 20:29 | ED.GENADUL_ITS ---
Discharge Plan Disposition Patient Disposition: Home Condition: Stable Discharge Details Clinical Impression: Shortness of breath, Facial numbness Primary Care Provider: Ximena Graham ED Provider: Balbir Beavers Home Meds and New Rx's Prescriptions: Continued multivitamin tablet 1 tab PO DAILY lisinopril 20 mg tablet 20 mg PO BID cyanocobalamin (vitamin B-12) [Vitamin B-12] 500 mcg tablet 500 mcg PO DAILY rosuvastatin 20 mg tablet 20 mg PO DAILY Rx Instructions: take with 10 mg for a total of 30 mg daily. rosuvastatin 10 mg tablet 10 mg PO DAILY Patient Comments: TAKE 1 TABLET BY MOUTH ONCE DAILY WITH 20MG TAB FOR 30 MG DAILY. diazepam [Valium] 5 mg tablet 5 mg PO BID PRN Rx Instructions: PT finished. No longer using it. labetalol 200 mg tablet See Rx Instructions PO BID Rx Instructions: 1 TAB QAM 1/2 TAB QHS PO twice a day; TAKE ONE TABLET BY MOUTH EVERY MORNING AND ONE HALF TABLET AT BEDTIME. Levemir FlexTouch U-100 Insuln 100 unit/mL (3 mL) insulin pen 24 unit SUBCUT BID Rx Instructions: 09/29/22 24 UN QAM, 22 U QHS acetaminophen [Acetaminophen Extra Strength] 500 mg Tablet 500 mg PO Q6H PRN amlodipine 10 mg tablet 10 mg PO DAILY Patient Comments: TAKE 1 TABLET BY MOUTH ONCE DAILY cholecalciferol (vitamin D3) [Vitamin D3] 50 mcg (2,000 unit) Capsule 50 mcg PO DAILY gabapentin 300 mg capsule 300 mg PO TID PRN Rx Instructions: sig: one tab qAM, and one tab HS.; third time is prn clopidogrel 75 mg tablet 75 mg PO DAILY Patient Comments: TAKE 1 TABLET BY MOUTH ONCE DAILY prednisone 10 mg tablet 10 mg PO DAILY Qty: 4 0RF Discharge Instructions Instructions: Dyspnea (ED) Additional Instructions: Follow up with your primary care provider within 1 week if you feel more ill, have severe worsening symptoms or severe pain return to the emergency department Medical Decision Making 77 yo female with hx of DM, TIA, htn, hld, who comes in with chief complaint of shortness of breath worsening throughout the day. Denies fevers, chills, had chest pain earlier that has since resolved, she denies any n/v or diaphoresis with this chest pain and described it as an ache across the anterior chest. She arrives hemodynamically stable, does appear anxious on exam but speaking clearly. She has apical wheezing bilaterally, no calf tenderness, no abdominal tenderness. Unclear etiology for her symptoms basedon exam and history, given wheezing will treat with dose of decadron and duoneb. Will obtain cbc, cmp, ekg, troponin, probnp and cxr and reassess. Had negative cta for pe on 11/09 so doubt pe vbg shows respiratory alkalosis which could be from anxiety, rest of labs unremarkable and xray shows questions minimal left pleural effusion otherwise no acute findings. She feels significantly better and is less anxious appearing. She is caox4, clear speech. She has had a prior cva which has left her with arm and leg weakness on the right side and some right facial droop which is unchanged. She states for 2 weeks she's had right facial numbness in the cheek and forehead. eomi, perrl. Unclear etiology of the right facial numbness without other new deficits so doubt cva, will obtain ct head given symptoms have been present for [address] read as age indeterminate left basal ganglia/internal capsule infarction and chronic basal ganglia/lacunar infarctions, no hemorrhage. Patient stable, subjec tive numbness of her face resolved. She has no hypoxia and clear lungs. she does state she feels she gets jittery and anxious when she uses her albuterol. She does state shefelt much better with ativan and requests to have this at home. Offered to keep her in the ED for mri of the brain but given subjective numbness resolved she declined. She is stable for d/c, advised to f/u with her pcp, return precautions given Differential Diagnosis Differential Diagnosis: pneumonia, copd, chf Medical Records Medical records reviewed: Yes I reviewed the patient's medical records. Imaging Data Radiologic Study: Attestation: I personally reviewed and interpreted this imaging study as follows: Imaging: X-Ray Radiologist's impression: PROCEDURE INFORMATION: Exam: XR Chest Exam date and time: 11/14/2022 8:14 PM Age: 77 years old Clinical indication: Shortness of breath TECHNIQUE: Imaging protocol: Radiologic exam of the chest. Views: 1 view. COMPARISON: XR CHEST 2V PA LATERAL 10/28/2022 5:52 PM FINDINGS: Lungs: No consolidation. Pleural spaces: Question minimal left pleural effusion. No pneumothorax. Heart/Mediastinum: Grossly stable. Bones/joints: Unremarkable. IMPRESSION: Question minimal left pleural effusion Radiologic Study #2: Attestation: I personally reviewed and interpreted this imaging study as follows: Imaging: CT Scan Radiologist's impression: IMPRESSION: Age-indeterminate left basal ganglia/internal capsule infarction. Clinical correlation recommended. Further evaluation as clinically indicated Lab Data Lab results reviewed: Yes I reviewed the patient's lab results. HPI General Mode of arrival: EMS . Date/Time Provider Initiated Documentation: 11/14/22 19:58 . Information obtained by: patient and family . History of Present Illness 77 year old F presents to the emergency department with the chief complaint of shortness of breath, described as moderate, Patient started experiencing this day(s) (1) and it has been constant. No relieving factors improve symptom(s), No exacerbating factors reported . Patient notes cough; denies fever/chills. Patient did receive the following treatments prior to arrival, none Related Data Home Medications Medication Instructions Recorded Confirmed cyanocobalamin (vitamin B-12) 500 500 mcg PO DAILY 07/11/18 11/09/22 mcg tablet (Vitamin B-12) lisinopril 20 mg tablet 20 mg PO BID 07/11/18 11/09/22 multivitamin 1 tab PO DAILY 07/11/18 11/09/22 acetaminophen 500 mg tablet 500 mg PO Q6H PRN 07/23/20 11/09/22 (Acetaminophen Extra Strength) amlodipine 10 mg tablet 10 mg PO DAILY 07/23/20 11/09/22 cholecalciferol (vitamin D3) 50 50 mcg PO DAILY 07/23/20 11/09/22 mcg (2,000 unit) capsule (Vitamin D3) gabapentin 300 mg capsule 300 mg PO TID PRN 07/23/20 11/09/22 diazepam 5 mg tablet (Valium) 5 mg PO BID PRN 11/09/21 11/09/22 rosuvastatin 10 mg tablet 10 mg PO DAILY 11/09/21 11/09/22 rosuvastatin 20 mg tablet 20 mg PO DAILY 11/09/21 11/09/22 labetalol 200 mg tablet See Rx Instructions PO BID 01/12/22 11/09/22 insulin detemir U-100 100 unit/mL 24 unit subcut BID 09/29/22 11/09/22 (3 mL) subcutaneous pen (Levemir FlexTouch U-100 Insulin) clopidogrel 75 mg tablet 75 mg PO DAILY 10/17/22 11/09/22 prednisone 10 mg tablet 10 mg PO DAILY #4 tabs 11/09/22 Previous Rx's Medication Instructions Recorded prednisone 10 mg tablet 10 mg PO DAILY #4 tabs 11/09/22 Allergies Allergy/AdvReac Type Severity Reaction Status Date / Time aspirin Allergy Severe GI Bleed Verified 10/28/22 17:21 Calcium Channel Blocking Allergy Severe Verified 10/28/22 17:21 Agent Dilt ibuprofen [From Motrin] Allergy Severe GI Bleed Verified 10/28/22 17:21 pneumococcal vaccine Allergy Severe Verified 10/28/22 17:21 [From Pneumovax-] pregabalin Allergy Severe Verified 10/28/22 17:21 Tetracyclines Allergy Severe Makes my Verified 10/28/22 17:21 skin peel and throat close up buspirone Allergy Unknown Verified 10/28/22 17:21 codeine Allergy Unknown Verified 10/28/22 17:21 pentazocine [From Talwin] Allergy Unknown Verified 10/28/22 17:21 sulfamethoxazole Allergy Unknown Verified 10/28/22 17:21 [From Bactrim] trimethoprim [From Bactrim] Allergy Unknown Verified 10/28/22 17:21 furosemide [From Lasix] Allergy Unverified 10/28/22 17:21 glipizide Allergy Unverified 10/28/22 17:21 metformin Allergy Unverified 10/28/22 17:21 sertraline Allergy Unverified 10/28/22 17:21 spironolactone Allergy Unverified 10/25/22 13:39 ciprofloxacin [From Cipro] AdvReac Severe made my Verified 10/28/22 17:21 stomach bleed duloxetine [From Cymbalta] AdvReac Severe made me Verified 10/28/22 17:21 sick and suicidal prednisone AdvReac Severe Raises BP Verified 10/28/22 17:21 and blood sugar per Pt tramadol AdvReac Severe major GI Verified 10/28/22 17:21 upset oxycodone [From Percocet] AdvReac Unknown Verified 10/28/22 17:21 propoxyphene AdvReac Unknown Verified 10/28/22 17:21 [From Darvocet-N] General Stated Complaint: SOB RADHA: 3 Review of Systems All systems reviewed & are unremarkable except as noted in HPI and below Constitutional Constitutional: Denies chills, Denies fever(s) and Denies weakness Cardiovascular Cardiovascular: Denies chest pain Gastrointestinal Gastrointestinal: Denies abdominal pain, Denies nausea and Denies vomiting Genitourinary Genitourinary: Denies dysuria Musculoskeletal Musculoskeletal: Denies joint swelling Integumentary/Breasts Skin/Breast: Denies rash Neurologic Neurologic: Denies weakness PFSH All Active Problems (Updated 11/14/22 @ 22:52 by Balbir Beavers MD) Shortness of breath (Acute) Facial numbness (Acute) Lumbar herniated disc (Acute) Allergic rhinitis (Acute) Late, effect, cerebrovascular disease (Acute) PVC (premature ventricular contraction) (Acute) Leg edema (Acute) Nocturnal hypoxia (Acute) Mammogram abnormal (Acute) Pain of both breasts (Acute) Epigastric discomfort (Acute) Psoriasis (Chronic) Joint pain (Acute) Cough (Acute) Dyspnea (Acute) at rest Bronchitis (Acute) Heart block AV first degree (Acute) COPD (chronic obstructive pulmonary disease) (Chronic) Chest pain (Acute) COPD exacerbation (Acute) Episode of shaking (Acute) Hypertension (Chronic) Chest pain (Acute) Hearing loss (Acute) Trigger finger, right middle finger (Acute) 40 mg Depo-Medrol injection: 10/27/2022 Nasal congestion (Acute) Impairment of speech discrimination (Acute) Sensorineural hearing loss, bilateral (Acute) Decreased hearing (Acute) Transient neurological symptoms (Acute) Pulmonary nodule (Acute) Breast pain, left (Acute) Fatigue (Acute) Dermatitis (Acute) Body mass index [BMI] 31.0-31.9, adult (Acute) Depression (Chronic) Dyspnea on exertion (Acute) Atypical chest pain (Acute) Chest pain (Acute) Painful orthopaedic hardware (Acute) Status post removal of syndesmotic screw DOS: 04/16/2021 CVA (cerebral vascular accident) (Chronic) Diabetes mellitus (Chronic) COPD without exacerbation (Acute) Neuropathy (Acute) DVT prophylaxis (Acute) Discharge planning issues (Acute) Fever (Acute) Vulvitis (Acute) 06/2020. Unclear etiology. Rx with topical yeast/steroid. 08/2020. punch bx of R vaginal vestibule. 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 Lipoma of extremity (Acute) Arthritis of knee, left (Acute) Depo-Medrol injection: 04/06/2022; 08/05/2021; 04/29/2021 S/P skin biopsy (Acute) 08/2020. R side of vaginal vestibule. Bimalleolar fracture of right ankle (Acute 03/16/20) March 2020 s/p ORIF Periprosthetic fracture around internal prosthetic right knee joint, initial encounter (Acute 03/16/20) March 2020 s/p ORIF Status post total knee replacement, right (Acute 02/05/19) Dr. Monge Hypertension (Chronic) Medical History (Updated 11/14/22 @ 22:52 by Balbir Beavers MD) Abdominal pain, epigastric Adjustment disorder with anxiety Ankle pain, right Arthralgia of wrist, right Arthritis Arthritis of knee, right Asymptomatic PVCs Belching Bilateral leg edema Breast pain Cerebral hemorrhage(nontraumatic) Generalized arthritis GI bleed Gout Hand joint pain Headache Hiatal hernia History of depression meds in past presently on no rx for depression History of hemorrhagic stroke with residual hemiparesis (R) History of TIAs Hyperlipidemia Hypertension Knee pain, left LUQ pain Neck pain on right side TIM (obstructive sleep apnea) has used cpap in past presently not using Osteoarthritis RUQ pain Sensorineural hearing loss Shortness of breath at rest Shoulder pain, right Skin tag Trigger finger (acquired) Type 2 diabetes mellitus Vulvar irritation Surgical History History of appendectomy History of arthroscopic knee surgery History of colonoscopy History of hysterectomy Family History Father Heart disease Social History (Updated 11/10/22 @ 12:10 by Lyn Fierro) Smoking/Tobacco Use Status: Never Smoking risk assessment performed?: Yes Alcohol Intake: never Drug use: Never Substance use type: does not use Household members: significant other Number of Children: 0 current occupation: retired. Pets and animals: No Current gender identity: female What is your relationship status?: Panel score (0-1 are the most socially isolated patients): 0 What type of physical activity do you participate in: none Seatbelt use: always Do you feel safe at home: Yes Do you feel safe in your relationship?: Yes Female Reproductive History Menstrual Menopause type: surgical Exam Const Orientation: alert HENMT Head: normal to inspection Ears: external ears normal General nose exam: external nose normal Mouth: moist mucous membranes Eyes General: appearance normal, both eyes and all related structures Neck Neck: normal visual inspection Resp Auscultation: wheezes Cardio Jugular venous pressure: no JVD Rate: regular rate Heart Sounds: no murmurs Skin General skin exam: no rashes or lesions noted Neuro General: patient alert and patient oriented x3 Extrem General: capillary refill normal Psych Mental Status: mental status grossly normal Course Vital Signs Vital signs: Vital Signs Temperature 36.6 C 11/14/22 19:56 Pulse 69 11/14/22 19:56 Respiratory Rate 11/14/22 19:56 Blood Pressure 156/78 H 11/14/22 19:56 Pulse Oximetry 99 11/14/22 19:56 Temperature 36.6 C 11/14/22 19:56 Temperature Source Oral 11/14/22 19:56 Pulse 69 11/14/22 19:56 Respiratory Rate 22 11/14/22 19:56 Respiratory Effort Short of Breath, Pursed Lip 11/14/22 20:07 Respiratory Depth Shallow 11/14/22 20:07 Respiratory Pattern Tachypnea 11/14/22 20:07 Blood Pressure 156/78 H 11/14/22 19:56 Blood Pressure Position Supine 11/14/22 19:56 Pulse Oximetry 99 11/14/22 19:56 Oxygen Delivery Method Room Air 11/14/22 19:56 Oxygen Flow Rate 0 11/14/22 19:56 Pain Level 8 11/14/22 20:07
[2022-11-14 20:39] LABS: BE (Venous) 8 mmol/L (-2-3); HCO3 (Venous) 30 mmol/L (23-28); O2 Sat (Venous) 84 %; TCO2 (Venous) 26 mmol/L (24-29); pCO2 (Venous) 33 mmHg (41-51); pH (Venous) 7.57 (7.31-7.41); pO2 (Venous) 41 mmHg
[2022-11-14 20:41] LABS: Abs Immature Grans 0.03 10^3/uL (0.0-0.06); Absolute Basophil Count 0.08 10^3/uL (0.0-0.2); Absolute Eosinophil Count 0.15 10^3/uL (0.0-0.7); Absolute Lymphocyte Count 2.42 10^3/uL (1.2-3.4); Absolute Monocyte Count 0.68 10^3/uL (0.1-0.8); Absolute Neutrophil Count 7.85 10^3/uL (1.2-6.7); Basophils % 0.7; Eosinophils % 1.3; HCT 42.4 % (36.0-46.0); HGB 13.7 g/dL (11.2-15.7); Immature Grans % 0.3; Lymphocytes % 21.6; MCH 28.1 pg (27.0-33.0); MCHC 32.3 % (32.0-36.0); MCV 87 fL (80-95); MPV 10.1 fL (8.0-11.0); Monocytes % 6.1; Platelet Count 246 10^3/uL (130-400); RBC 4.87 10^6/uL (3.93-5.22); RDW 13.6 % (11.7-14.6); RDW-SD 43.2 fL; WBC 11.21 10^3/uL (4.4-10.8)
[2022-11-14] MEDS: Dexamethasone 10 MG/ML VIAL IVP (20:45)
[2022-11-14] MEDS: LORazepam 2 MG/ML VIAL 0.5 MG IVP (20:48)
--- NOTE | 2022-11-14 20:51 | DI.VRAD_ITS ---
PROCEDURE INFORMATION: Exam: XR Chest Exam date and time: 11/14/2022 8:14 PM Age: 77 years old Clinical indication: Shortness of breath TECHNIQUE: Imaging protocol: Radiologic exam of the chest. Views: 1 view. COMPARISON: XR CHEST 2V PA LATERAL 10/28/2022 5:52 PM FINDINGS: Lungs: No consolidation. Pleural spaces: Question minimal left pleural effusion. No pneumothorax. Heart/Mediastinum: Grossly stable. Bones/joints: Unremarkable. IMPRESSION: Question minimal left pleural effusion Dictated and Authenticated by: Levi Drew MD. Ordering:STANLEY Mcgregor MD
[2022-11-14 20:56] LABS: PTT Activated 25.1 sec (21.5-31.9); Prothrombin Time 10.2 sec (9.3-11.0)
[2022-11-14 21:00] LABS: ALT 21 U/L (14-59); AST 25 U/L (15-37); Albumin 4.1 g/dL (3.4-5.0); Alkaline Phosphatase 126 U/L (46-116); Anion Gap 10.3 mmol/L (3-11); BUN 13 mg/dL (7-18); Bilirubin, Total 0.7 mg/dL (0.2-1.0); CO2 26.7 mmol/L (21.0-32.0); CREATININE 0.7 mg/dL (0.55-1.02); Calcium 9.7 mg/dL (8.5-10.1); Chloride 104 mmol/L (98-107); Estimated GFR 88.47 (mL/min/1.73m2); Glucose 161 mg/dL (74-106); Magnesium 1.9 mg/dL (1.8-2.4); Potassium 3.5 mmol/L (3.5-5.1); Sodium 141 mmol/L (136-145); Total Protein 7.7 g/dL (6.4-8.2); Troponin I < 50 ng/L (<or=60)
--- NOTE | 2022-11-14 21:15 | DI.CT_ITS ---
Exam(s) CT HEAD WO EXAM: CT HEAD WO CLINICAL HISTORY: right sided facial numbness. TECHNIQUE: Imaging Protocol: Axial computed tomography images with coronal and sagittal reformatted images were created and reviewed COMPARISON: CT CT BRAIN NECK CTA from 10/17/2022 FINDINGS: Ventricles and Extra axial spaces: Normal in size and morphology for the patient's age. Hemorrhage: None. Cerebral parenchyma: Basal ganglia lacunar infarcts versus prominent vascular spaces. Mild microvasc ular changes. Midline shift: None. Brainstem/Cerebellum: Normal. Calvarium: Hyperostosis frontalis interna. Visualized Paranasal sinuses/Mastoids: Mucous retention cyst versus polyp left maxillary sinus. Soft Tissues: Unremarkable. IMPRESSION: No acute intracranial process. RADIATION DOSE DELIVERED: 662.77mGy.cm Total DLP DATA REPOSITORY: All CT scans at this facility are submitted to the National Radiology Data Registry (NRDR) Dose Index Registry (DIR) with the [employer] (ACR). RADIATION OPTIMIZATION: All CT scans at this facility use at least one of these dose optimization te chniques: automated exposure control; mA and/or kV adjustment per patient size (includes targeted exa ms where dose is matched to clinical indication); or iterative reconstruction.
[2022-11-14 21:17] LABS: NT-proBNP 264 pg/mL (<300)
[2022-11-14 21:19] LABS: COVID-19 PCR Negative (Negative); Influenza A PCR Negative (Negative); Influenza B PCR Negative (Negative); RSV PCR Negative (Negative); Source Nasopharynx
--- NOTE | 2022-11-14 22:01 | DI.VRAD_ITS ---
PROCEDURE INFORMATION: Exam: CT Head Without Contrast Exam date and time: 11/14/2022 9:43 PM Age: 77 years old Clinical indication: Numbness / parasthesia; Patient HX: Right sided facial numbness; Additional info: HX of hemorrhagic stroke with residual hemiparesis R TECHNIQUE: Imaging protocol: Computed tomography of the head without contrast. Radiation optimization: All CT scans at this facility use at least one of these dose optimization techniques: automated exposure control; mA and/or kV adjustment per patient size (includes targeted exams where dose is matched to clinical indication); or iterative reconstruction. COMPARISON: CT BRAIN NECK CTA 10/17/2022 7:01 PM FINDINGS: Brain: Age-indeterminate infarction left basal ganglia/internal capsule axial images 25-26 Mild volume loss. Chronic basal ganglia lacunar infarctions No hemorrhage. Unremarkable white matter. Cerebral ventricles: No ventriculomegaly. Paranasal sinuses: A polyp/retention cyst is noted in the left maxillary sinus.No fluid levels. Mastoid air cells: Visualized mastoid air cells are well aerated. Bones/joints: Unremarkable. No acute fracture. Soft tissues: Unremarkable. IMPRESSION: Age-indeterminate left basal ganglia/internal capsule infarction. Clinical correlation recommended. Further evaluation as clinically indicated Dictated and Authenticated by: Levi Drew MD. Ordering:STANLEY Mcgregor MD
== END 2022-11-14 23:38 | disposition home or self-care (01) ==
PROVIDERS: Emergency Provider Emergency Medicine; PCP Nurse Practitioner Family
DX: R06.02 Shortness of breath (principal); R20.0 Anesthesia of skin; R29.810 Facial weakness; I10 Essential (primary) hypertension; E11.9 Type 2 diabetes mellitus without complications; Z79.4 Long term (current) use of insulin; Z86.73 Personal history of transient ischemic attack (TIA), and cerebral infarction without residual deficits; Z79.899 Other long term (current) drug therapy; Z20.822 Contact with and (suspected) exposure to COVID-19
CPT/HCPCS: 80053; 82805; 87637; 93005; 96374; 96375; 99284; 99285; 70450; 71045; 83735; 83880; 84484; 85025; 85610; 85730; 93010; J1100; J2060

== ENCOUNTER 2022-11-17 10:57 | Outpatient (CLI) | payer MEDICARE, OTHER, SELFPAY ==
--- NOTE | 2022-11-17 15:34 | DI.US_ITS ---
APPROVED REPORT EXAM: Comprehensive 2D, Doppler, and color-flow Echocardiogram Patient Location: Out-Patient Shot Packer: Laura Haynes RDCS (AE) Indications: dyspnea at rest Other Information Study Quality: Adequate Conclusion Normal left ventricular wall thickness and chamber size. Estimated ejection fraction is 50 to 55%. There are no segmental wall motion abnormalities Normal right ventricular size and systolic function Both atria are mildly dilated The aortic valve is sclerotic without stenosis or regurgitation Mild mitral annular calcification. Trace to mild mitral regurgitation Normal tricuspid valve with trace regurgitation Mildly dilated ascending aorta Wall motion Left Ventricle The left ventricle is normal size. Ventricular function is borderline There is normal left ventricula r wall thickness. There is no ventricular septal defect visualized. LVEF is 52%. Right Ventricle The right ventricle is normal size. The right ventricular systolic function is normal. Atria Left atrium is mildly dilated. Right atrium is mildly dilated. The interatrial septum is intact with no evidence for an atrial septal defect. Aortic Valve The Aortic valve is sclerotic. Number of aortic valve leaflets could not be assessed. There is no aor tic valvular stenosis. No aortic regurgitation is present. Mitral Valve Mild mitral annular calcification. No evidence of mitral valve stenosis. Trace to mild mitral regurg itation. Tricuspid Valve The tricuspid valve is normal in structure. There is no tricuspid valve stenosis. Trace tricuspid reg urgitation. Unable to assess PA pressure. Pulmonic Valve The pulmonary valve is normal in structure. There is no pulmonic valvular stenosis. Trace pulmonic re gurgitation. Great Vessels The aortic root is normal in size. The ascending aorta is mildly dilated. Aortic arch is normal in ca liber. IVC is normal in size and collapses >50% with inspiration. Pericardium There is no pericardial effusion. 2D Dimensions IVSD d PLAX 1.03 cm F: 0.6-1.0 LV Vol A2C d MOD 122.8 mL LVPW d PLAX 1.02 cm F: 0.6 - 1.0 LV Vol A4C d MOD 92.8 mL LVID d PLAX 4.62 cm F: 3.8 - 5.2 LA vol/ BSA A2C s A-L 47.6 mL/m2 LVDs 3.30 cm F: 2.2 - 3.5 LA vol/ BSA A4C s A-L 41.9 mL/m2 Ao Root d 3.03 cm F: 2.7 - 3.3 LA Vol/ BSA Biplane s A-L 45.8 mL/m2 RA Area A4C 16.80 cm2 LA Area A4C s MOD 22.79 cm2 RA Vol/ BSA A4C s A-L 30.5 mL/m2 LA Area A2C s MOD 23.68 cm2 Ao Asc Diam d 3.55 cm F: 2.3 - 3.1 LV EF A4C MOD 52.1 % LV EF Teichholz 53.5 % LV EF A2C MOD 52.1 % LVEF (Sultana's) 51.80 % F: 54 - 74 LV EF Biplane MOD 51.8 % LV Volume 86.38 mL F: 46 - 106 SV 56.36 mL LV Volume Index 50.81 mL/m2 F: 29 - 61 SV Index 33.12 mL/m2 LV Vol Biplane MOD 108.8 mL FS 27.50 % M-Mode TAPSE 2.31 cm (M/F) >1.7 LV Diastology MV E' medial 0.065 (>0.07 m/s) E/A Ratio 0.6 LV E/e MED 11.70 (<14) MV E Vmax 0.76 (0.4-1.3 m/s) MV E' lateral 0.071 (>0.1 m/s) MV A Vmax 1.25 (0.4-1.3 m/s) LV E/e LAT 10.65 (<14) MV E/A Ratio 0.58 MV E/E' medial 11.71 MV E/E' lateral 10.70 Aortic Valve LVOT Area 2.91 cm2 AoV Area Vmax 1.83 cm2 LVOT Vmax 1.20 m/s AoV Area/ BSA (Vmax) 1.07 cm2/m2 LVOT Mean Davin. 0.77 m/s CHAYO Mean Davin. 1.60 cm2 LVOT Peak Grad 5.8 mmHg CHAYO Mean Davin. Index 0.94 cm2/m2 LVOT Mean Grad 2.9 mmHg LVOT VTI 0.282 m LVOT Diam s 1.90 cm AoV Vmax 1.91 m/s Velocity Ratio 0.63 AoV Mean Davin. 1.41 m/s AoV Peak Grad 14.7 mmHg LVOT SV 82.01 mL AoV Mean Grad 8.6 mmHg AoV VTI 0.455 m AoV Area VTI 1.80 cm2 AoV Area/ BSA (VTI) 1.06 cm/m2 Mitral Valve MV DT 290 (160-240 msec) MV PHT 84 msec MV Area PHT 2.62 cm2 MV VTI 0.290 m MV Area VTI 2.83 (4.0-6.0 cm2) Pulmonary Valve PV Vmax 0.91 (0.5-1.5 m/s) RVOT Peak Gr. 2.58 mmHg PV Peak Grad 3.3 mmHg RVOT Mean Gr. 1.30 mmHg PV Mean Grad 2.2 mmHg RVOT VTI 0.178 m PV VTI 0.214 m RVOT Vmax 0.80 m/s
== END 2022-11-17 11:17 ==
PROVIDERS: PCP Nurse Practitioner Family; Visit Provider Nurse Practitioner Family
DX: R06.09 Other forms of dyspnea (principal)
CPT/HCPCS: 93306

== ENCOUNTER → 2022-11-22 15:20 | Outpatient (BNVA) | payer MEDICARE, OTHER, SELFPAY | PROVIDERS: PCP Nurse Practitioner Family; Visit Provider Student in an Organized Health Care Education/Training Program | DX: M17.12 Unilateral primary osteoarthritis, left knee (principal); M65.331 Trigger finger, right middle finger | CPT/HCPCS: 20610; J1040 ==

== ENCOUNTER 2022-12-06 17:38 | Outpatient (REF) | payer MEDICARE, OTHER, SELFPAY ==
[2022-12-06 15:49] LABS: Lipase 43 U/L (16-77); TSH (W/Ref FT4) 1.02 uIU/mL (0.36-3.74)
== END 2022-12-06 17:39 | disposition home or self-care (01) ==
LOC: NCHCN 17:38
PROVIDERS: PCP Nurse Practitioner Family; Visit Provider Family Medicine
DX: R10.13 Epigastric pain (principal); I10 Essential (primary) hypertension; E78.2 Mixed hyperlipidemia
CPT/HCPCS: 83690; 84443

== ENCOUNTER 2022-12-08 18:02 | Outpatient (REF) | payer MEDICARE, OTHER, SELFPAY ==
[2022-12-08 13:32] LABS: Creatinine,Urine 55.44 mg/dL
[2022-12-08 13:33] LABS: Creatinine,24hr Ur 0.67 g/24hr (0.60-1.80); Total Volume 1200 ml
[2022-12-10 19:22] LABS: Metanephrines, U 54 mcg/24 h; Normetanephrine, U 236 mcg/24 h; Total Metanephrines, U 290 mcg/24 h; Urine Volume 1200 mL
[2022-12-14 10:25] LABS: Urine Volume 1200 mL
== END 2022-12-08 18:03 | disposition home or self-care (01) ==
LOC: NCHCN 18:02
PROVIDERS: PCP Nurse Practitioner Family; Visit Provider Family Medicine
DX: R56.9 Unspecified convulsions (principal)
CPT/HCPCS: 81050; 82384; 82570; 83835

== ENCOUNTER → 2022-12-23 10:42 | Outpatient (BNVA) | payer MEDICARE, OTHER, SELFPAY | PROVIDERS: PCP Nurse Practitioner Family; Referring Provider Nurse Practitioner Family; Visit Provider Psychiatry & Neurology Neurology | DX: I69.320 Aphasia following cerebral infarction (principal); R20.2 Paresthesia of skin | CPT/HCPCS: 99214 ==

== ENCOUNTER 2022-12-30 02:47 | Outpatient (CLI) | payer MEDICARE, OTHER, SELFPAY ==
[2022-12-30 17:44] LABS: Rheumatoid Factor <8.6 IU/mL (<12.0)
[2022-12-31 07:42] LABS: IgE 4 IU/mL (<158)
[2022-12-31 10:18] LABS: IgA 107 mg/dL (85-499); IgG 720 mg/dL (610-1616); IgM 98 mg/dL (35-242)
[2022-12-31 10:21] LABS: Cyclic Citrullinated Peptide <2.5 U/mL (<5.0)
[2022-12-31 14:57] LABS: ANA Interpretation Negative (Negative)
[2023-01-01 11:47] LABS: Myeloperoxidase Ab IgG <0.2 U; Proteinase 3 Ab (PR3) <0.2 U
[2023-01-03 12:49] LABS: TB Interpretation Negative (Negative); TB1 Ag minus Nil 0.01 IU/ml
== END 2022-12-30 02:48 | disposition home or self-care (01) ==
LOC: LBO 02:47
PROVIDERS: PCP Nurse Practitioner Family; Visit Provider Student in an Organized Health Care Education/Training Program
DX: J47.9 Bronchiectasis, uncomplicated (principal); R91.1 Solitary pulmonary nodule
CPT/HCPCS: 36415; 82784; 86200; 82785; 82787; 83516; 86038; 86431; 86480

== ENCOUNTER → 2023-02-04 13:36 | Outpatient (BNVA) | payer MEDICARE, OTHER, SELFPAY | PROVIDERS: PCP Nurse Practitioner Family; Referring Provider Nurse Practitioner Family; Visit Provider Internal Medicine Cardiovascular Disease | DX: J47.9 Bronchiectasis, uncomplicated (principal); R60.0 Localized edema | CPT/HCPCS: 99213 ==

== ENCOUNTER 2023-02-08 01:32 | Outpatient (CLI) | payer MEDICARE, OTHER, SELFPAY ==
--- NOTE | 2023-02-08 07:30 | DI.CT_ITS ---
Exam(s) CT CHEST WO EXAM: CT CHEST WO CLINICAL HISTORY: f/u RML collapse after airway clearance,pulmonary nodule,r91.1,j98.19. TECHNIQUE: Multi planar reconstructions were performed. CONTRAST MATERIAL: None COMPARISON: CT CT CHEST PE CTA from 11/09/2022 FINDINGS: CHEST: LUNGS: Right middle lobe appears re-expanded. There are small calcified granulomas in both lung gordon again noted, ranging up to 6 millimeter size (left lower lobe adjacent to the descending thoracic aorta). There is only 1 nodule in lung gordon which is not calcified, this being a small-moderate nodular infiltrate in the anterior basal segment right lower lobe measuring 5 mm, unchanged. There are no pleural effusions. No significant focal fi ndings in the trachea and mainstem bronchi. MEDIASTINUM: There is no obvious hilar nor mediastinal adenopathy. Visualized thyroid unremarkable.No obvious axillary adenopathy CARDIAC: Mild cardiomegaly. No significant pericardial effusion. Caliber thoracic aorta upper joanne l. VISUALIZED UPPER ABDOMEN: OSSEOUS: No significant osseous lesions.. IMPRESSION: 1. Compared to the prior CT scan of 11/09/2022 there has been re-expansion of the right middle lobe. No new infiltrates nor pleural effusions. 2. Bilateral benign calcified granulomas again noted. 3. Stable 6 millimeter noncalcified nodule in the right lower lobe. RADIATION DOSE DELIVERED: 493.21mGy.cm Total DLP DATA REPOSITORY: All CT scans at this facility are submitted to the National Radiology Data Registry (NRDR) Dose Index Registry (DIR) with the [employer] (ACR). RADIATION OPTIMIZATION: All CT scans at this facility use at least one of these dose optimization te chniques: automated exposure control; mA and/or kV adjustment per patient size (includes targeted exa ms where dose is matched to clinical indication); or iterative reconstruction.
== END 2023-02-08 01:52 ==
LOC: DI 01:33
PROVIDERS: PCP Nurse Practitioner Family; Visit Provider Student in an Organized Health Care Education/Training Program
DX: J98.19 Other pulmonary collapse (principal); R91.1 Solitary pulmonary nodule
CPT/HCPCS: 71250

== ENCOUNTER 2023-03-03 03:31 | Outpatient (CLI) | payer MEDICARE, OTHER, SELFPAY ==
--- NOTE | 2023-03-03 10:28 | DI.DEXA_ITS ---
Exam(s) XR DEXA BONE DENSITY W/WO RAEGAN EXAM: XR DEXA BONE DENSITY W/WO RAEGAN CLINICAL HISTORY: SCREENING FOR OSTEOPOROSIS IN POSTMENOPAUSAL WOMAN,Z78.0 TECHNIQUE: Routine DEXA evaluation of the lumbar spine, hip, or forearm. COMPARISON: No exams were available for comparison FINDINGS: Performed on a Hologic unit. Lateral image: No compression fracture evident. Lumbar Spine total T-score: -1.8 Hip total T-score:-2.4 Independent reading at the level of the femoral neck yields T-score of -3.3 Forearm total T-score: -4.0 IMPRESSION: Bone mineral density measures in the osteoporosis range. Fracture risk is high. Note: Any spine fracture indicates 5x risk for subsequent spine fracture and 2x risk for subsequent h ip fracture. World Health Organization criteria for BMD interpretation classify patients: Normal...... T- Score at or above -1.0 Osteopenic... T- Score between -1.0 and -2.5 Osteoporosis... T-Score at or below -2.5
== END 2023-03-03 03:51 ==
LOC: DI 03:34
PROVIDERS: PCP Nurse Practitioner Family; Visit Provider Nurse Practitioner Family
DX: Z78.0 Asymptomatic menopausal state (principal); Z13.820 Encounter for screening for osteoporosis
CPT/HCPCS: 77080

== ENCOUNTER 2023-04-16 09:47 | Emergency (ER) | payer MEDICARE, OTHER, SELFPAY ==
[2023-04-16] VITALS (37 sets, daily range): BP systolic 128–170; BP diastolic 58–100; PULSE 69–106; RESP 13–26; TEMP 36.6; O2SAT 93–100
--- NOTE | 2023-04-16 09:45 | RT.EKG_ITS ---
APPROVED REPORT Exam: Resting ECG Reason for Exam: SOB/chest pain Patient Location: E HR:72 bpm ECG Measurements Heart Rate 72 AXIS RI 245 P 16 QRSd 100 QRS -11 QT 433 T 77 QTc 474 Conclusion Sinus rhythm...normal P axis, V-rate 60- 99 Prolonged RI interval...RI >220, V-rate 50- 90 Consider anteroseptal infarct...Q >30mS, dimin R, V1-V2
--- NOTE | 2023-04-16 10:00 | DI.RAD_ITS ---
Exam(s) XR CHEST 2V PA LATERAL EXAM: XR CHEST 2V PA LATERAL CLINICAL HISTORY: pain. TECHNIQUE: 2D digital imaging was performed. COMPARISON: CR,XR XR PORTABLE CHEST AP from 11/14/2022 FINDINGS: 2 views: Heart size is upper normal. The mediastinum is not widened. Density in the right parahilar region is probably vascular. No confluent infiltrates nor pleural effusions. No pulmonary edema. IMPRESSION: No acute pulmonary findings. DATA REPOSITORY: RADIATION DOSE DELIVERED:
--- NOTE | 2023-04-16 10:07 | ED.GENADUL_ITS ---
Discharge Plan Disposition Patient Disposition: Home Discharge Details Clinical Impression: Fatigue Primary Care Provider: Ximena Graham ED Provider: Ronn Rubio Home Meds and New Rx's Prescriptions: No Action levalbuterol tartrate [Xopenex HFA] 45 mcg/actuation HFA aerosol inhaler 2 inh inhalation Q6H Qty: 15 12RF Spiriva Respimat 2.5 mcg/actuation mist 2 inh inhalation QAM Qty: 4 4RF multivitamin tablet 1 tab PO DAILY lisinopril 20 mg tablet 20 mg PO BID cyanocobalamin (vitamin B-12) [Vitamin B-12] 500 mcg tablet 500 mcg PO DAILY rosuvastatin 20 mg tablet 20 mg PO DAILY Rx Instructions: take with 10 mg for a total of 30 mg daily. rosuvastatin 10 mg tablet 10 mg PO DAILY Patient Comments: TAKE 1 TABLET BY MOUTH ONCE DAILY WITH 20MG TAB FOR 30 MG DAILY. labetalol 200 mg tablet See Rx Instructions PO BID Rx Instructions: 1 TAB QAM 1/2 TAB QHS PO twice a day; TAKE ONE TABLET BY MOUTH EVERY MORNING AND ONE HALF TABLET AT BEDTIME. Levemir FlexTouch U100 Insulin 100 unit/mL (3 mL) insulin pen 24 unit SUBCUT BID Rx Instructions: 09/29/22 24 UN QAM, 22 U QHS famotidine 40 mg tablet 40 mg PO DAILY clopidogrel [Plavix] 75 mg tablet 75 mg PO DAILY amlodipine [Norvasc] 10 mg tablet 10 mg PO DAILY acetaminophen [Acetaminophen Extra Strength] 500 mg Tablet 500 mg PO Q6H PRN cholecalciferol (vitamin D3) [Vitamin D3] 50 mcg (2,000 unit) Capsule 50 mcg PO DAILY gabapentin 300 mg capsule 300 mg PO TID PRN Rx Instructions: sig: one tab qAM, and one tab HS.; third time is prn Discharge Instructions Additional Instructions: Please continue taking all your regular medication. Light diet tonight. Please try to go to bed early tonight. Please follow-up with primary care doctor next week. The work-up you received the emergency department today was totally negative. Your EKG was unchanged. Your cardiac markers normal. Chest x-ray did not reveal any abnormalities and the rest of your blood work were within normal limits. Medical Decision Making 77-year-old lady presents to the emergency room with vague vague complaints of chest pain, shortness of breath, dizziness, not feeling well, malaise and fatigue. They were actually not for driving the car when the lady asked her to bring her to the emergency room for evaluation. Review of the patient's chart reveals that she has had at least 2 very similar visits to the emergency department the past few years.. These visits have also been associated with extensive work-ups including CAT scans and MRIs. The patient's EKG today is unchanged from previous. Her troponins were also negative. ACS essentially ruled out. Chest x-ray did not reveal any change from previous x-rays. I do not believe the etiology of her issues today or pulmonary. Pulmonary auscultation is normal. BMP is normal. No failure. Rest of labs were within normal limits. Patient was observed for several hours in emergency department with resolution of symptoms.. Patient discharged to follow-up with primary care doctor in the next week. HPI General Date/Time Provider Initiated Documentation: 04/16/23 10:07 . HPI Narrative: 77-year-old lady presented to the emergency room for evaluation of multiple complaints that have been followed for approximately 10 days. She has been complaining of intermittent chest discomfort with radiation to the left arm, intermittent pain between her scapula which is apparently different than the pain that she is having her chest. Intermittent shortness of breath. Of note this morning after taking her nocturnal CPAP off and being about the house for few hours she became short of breath and had to reuse her CPAP for a short period of time because she became short of breath. Currently she is not short of breath. No abdominal pain. No vomiting. She does endorse some mild nausea at this time. No fevers no chills. No cough No weight gain no weight loss. Chronic and worsening swelling of the lower extremities for which she put on a diuretic recently. Complaining of chronic bilateral lower extremity pain. Related Data Home Medications Medication Instructions Recorded Confirmed cyanocobalamin (vitamin B-12) 500 500 mcg PO DAILY 07/11/18 03/30/23 mcg tablet (Vitamin B-12) lisinopril 20 mg tablet 20 mg PO BID 07/11/18 03/30/23 multivitamin 1 tab PO DAILY 07/11/18 03/30/23 acetaminophen 500 mg tablet 500 mg PO Q6H PRN 07/23/20 03/30/23 (Acetaminophen Extra Strength) cholecalciferol (vitamin D3) 50 50 mcg PO DAILY 07/23/20 03/30/23 mcg (2,000 unit) capsule (Vitamin D3) gabapentin 300 mg capsule 300 mg PO TID PRN 07/23/20 03/30/23 rosuvastatin 10 mg tablet 10 mg PO DAILY 11/09/21 03/30/23 rosuvastatin 20 mg tablet 20 mg PO DAILY 11/09/21 03/30/23 labetalol 200 mg tablet See Rx Instructions PO BID 01/12/22 03/30/23 insulin detemir U-100 100 unit/mL 24 unit subcut BID 09/29/22 03/30/23 (3 mL) subcutaneous pen (Levemir FlexTouch U-100 Insulin) amlodipine 10 mg tablet (Norvasc) 10 mg PO DAILY 11/15/22 03/30/23 clopidogrel 75 mg tablet (Plavix) 75 mg PO DAILY 11/15/22 03/30/23 famotidine 40 mg tablet 40 mg PO DAILY 11/15/22 03/30/23 levalbuterol tartrate 45 2 inh inhalation Q6H shortness of 12/28/22 03/30/23 mcg/actuation aerosol inhaler breath #15 grams (Xopenex HFA) tiotropium bromide 2.5 2 inh inhalation QAM #4 grams 02/11/23 03/30/23 mcg/actuation mist for inhalation (Spiriva Respimat) Previous Rx's Medication Instructions Recorded levalbuterol tartrate 45 2 inh inhalation Q6H shortness of 12/28/22 mcg/actuation aerosol inhaler breath #15 grams (Xopenex HFA) tiotropium bromide 2.5 2 inh inhalation QAM #4 grams 02/11/23 mcg/actuation mist for inhalation (Spiriva Respimat) Allergies Allergy/AdvReac Type Severity Reaction Status Date / Time aspirin Allergy Severe GI Bleed Verified 04/16/23 10:00 Calcium Channel Blocking Allergy Severe Verified 04/16/23 10:00 Agent Dilt ibuprofen [From Motrin] Allergy Severe GI Bleed Verified 04/16/23 10:00 pneumococcal vaccine Allergy Severe Verified 04/16/23 10:00 [From Pneumovax-23] pregabalin Allergy Severe Verified 04/16/23 10:00 Tetracyclines Allergy Severe Makes my Verified 04/16/23 10:00 skin peel and throat close up buspirone Allergy Unknown Verified 04/16/23 10:00 codeine Allergy Unknown Verified 04/16/23 10:00 pentazocine [From Talwin] Allergy Unknown Verified 04/16/23 10:00 sulfamethoxazole Allergy Unknown Verified 04/16/23 10:00 [From Bactrim] trimethoprim [From Bactrim] Allergy Unknown Verified 04/16/23 10:00 furosemide [From Lasix] Allergy Verified 04/16/23 10:00 glipizide Allergy Verified 04/16/23 10:00 metformin Allergy Verified 04/16/23 10:00 sertraline Allergy Verified 04/16/23 10:00 spironolactone Allergy Verified 04/16/23 10:00 ciprofloxacin [From Cipro] AdvReac Severe made my Verified 04/16/23 10:00 stomach bleed duloxetine [From Cymbalta] AdvReac Severe made me Verified 04/16/23 10:00 sick and suicidal prednisone AdvReac Severe Raises BP Verified 04/16/23 10:00 and blood sugar per Pt tramadol AdvReac Severe major GI Verified 04/16/23 10:00 upset fluticasone furoate AdvReac Mild Verified 04/16/23 10:00 [From Trelegy Ellipta] umeclidinium AdvReac Mild Verified 04/16/23 10:00 [From Trelegy Ellipta] vilanterol AdvReac Mild Verified 04/16/23 10:00 [From Trelegy Ellipta] oxycodone [From Percocet] AdvReac Unknown Verified 04/16/23 10:00 propoxyphene AdvReac Unknown Verified 04/16/23 10:00 [From Darvocet-N] LABA AdvReac Intermediate Tremor Uncoded 04/16/23 10:00 General Stated Complaint: Chest Pain RADHA: 2 Review of Systems Narrative: 10 point review of system is otherwise unremarkable unless specified in the HPI PFSH All Active Problems (Updated 04/16/23 @ 13:55 by Ronn Rubio MD) Lung collapse (Acute) Bronchiectasis (Acute) Lumbar herniated disc (Acute) Allergic rhinitis (Acute) Late, effect, cerebrovascular disease (Acute) PVC (premature ventricular contraction) (Acute) Leg edema (Acute) Nocturnal hypoxia (Acute) Mammogram abnormal (Acute) Pain of both breasts (Acute) Epigastric discomfort (Acute) Psoriasis (Chronic) Joint pain (Acute) Cough (Acute) Dyspnea (Acute) at rest Hearing loss (Acute) Trigger finger, right middle finger (Acute) 40 mg Depo-Medrol injection: 10/27/2022 Nasal congestion (Acute) Impairment of speech discrimination (Acute) Sensorineural hearing loss, bilateral (Acute) Decreased hearing (Acute) Transient neurological symptoms (Acute) Pulmonary nodule (Acute) Breast pain, left (Acute) Fatigue (Acute) Dermatitis (Acute) Body mass index [BMI] 31.0-31.9, adult (Acute) Depression (Chronic) Dyspnea on exertion (Acute) Atypical chest pain (Acute) Chest pain (Acute) Painful orthopaedic hardware (Acute) Status post removal of syndesmotic screw DOS: 04/16/2021 CVA (cerebral vascular accident) (Chronic) Diabetes mellitus (Chronic) COPD without exacerbation (Acute) Neuropathy (Acute) DVT prophylaxis (Acute) Discharge planning issues (Acute) Fever (Acute) Vulvitis (Acute) 06/2020. Unclear etiology. Rx with topical yeast/steroid. 08/2020. punch bx of R vaginal vestibule. 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 Lipoma of extremity (Acute) Arthritis of knee, left (Acute) Depo-Medrol injection: 11/22/2022; 04/06/2022; 08/05/2021; 04/29/2021 S/P skin biopsy (Acute) 08/2020. R side of vaginal vestibule. Bimalleolar fracture of right ankle (Acute 03/16/20) March 2020 s/p ORIF Periprosthetic fracture around internal prosthetic right knee joint, initial encounter (Acute 03/16/20) March 2020 s/p ORIF Status post total knee replacement, right (Acute 02/05/19) Dr. Monge Hypertension (Chronic) Medical History Abdominal pain, epigastric Adjustment disorder with anxiety Ankle pain, right Arthralgia of wrist, right Arthritis Arthritis of knee, right Asymptomatic PVCs Belching Bilateral leg edema Breast pain Cerebral hemorrhage(nontraumatic) Generalized arthritis GI bleed Gout Hand joint pain Headache Hiatal hernia History of depression meds in past presently on no rx for depression History of hemorrhagic stroke with residual hemiparesis (R) History of TIAs Hyperlipidemia Hypertension Knee pain, left LUQ pain Neck pain on right side TIM (obstructive sleep apnea) has used cpap in past presently not using Osteoarthritis RUQ pain Sensorineural hearing loss Shortness of breath at rest Shoulder pain, right Skin tag Trigger finger (acquired) Type 2 diabetes mellitus Vulvar irritation Surgical History History of appendectomy History of arthroscopic knee surgery History of colonoscopy History of hysterectomy Family History Father Heart disease Social History Smoking/Tobacco Use Status: Never Smoking risk assessment performed?: Yes Alcohol Intake: never Drug use: Never Substance use type: does not use Household members: significant other Number of Children: 0 current occupation: retired. Pets and animals: No Current gender identity: female What is your relationship status?: Panel score (0-1 are the most socially isolated patients): 0 What type of physical activity do you participate in: none Seatbelt use: always Do you feel safe at home: Yes Do you feel safe in your relationship?: Yes Female Reproductive History Menstrual Menopause type: surgical Exam Narrative Exam Narrative: General: A,A Ox3, Calm, no apparent distress, well developed, pleasant and cooperative Head Size/Shape: normocephalic, atraumatic Eyes Pupils: PERRLA Extraocular Mobility: intact and symmetrical Conjunctiva: non-injected, anicteric, no discharge Ears, Nose, Throat Nares: patent bilaterally Oral Cavity: moist Neck: no masses, no crepitus Lymph Nodes: no cervical lymphadenopathy Respiratory Respiratory Effort: no dyspnea Auscultation: clear to auscultation bilaterally, normal breath sounds, no wheezing, no rales/crackles Cardiovascular Heart Auscultation: regular rate and rhythm, normal S1, normal S2, no murmurs, no rubs, no gallops, Pulse Quality: +2 equal bilaterally, location(s) radial Abdomen Inspection and Palpation: soft, non-tender, non-distended, no hepatosplenomegaly Musculoskeletal System Joints, Bones, and Muscles: no deformities Extremities: warm and well-perfused, no cyanosis, capillary refill <2 seconds, edema lower extremities Skin Skin Inspection: no rash, no lesions, no bruising Neurological Motor: normal tone, normal strength, moving all extremities equally Psychiatric: good insight, good judgement, normal mood and affect Course Vital Signs Vital signs: Vital Signs Temperature 36.6 C 04/16/23 09:51 Pulse 75 04/16/23 09:51 Respiratory Rate 20 04/16/23 09:51 Blood Pressure 170/61 H 04/16/23 09:51 Pulse Oximetry 99 04/16/23 09:51 Temperature 36.6 C 04/16/23 09:51 Temperature Source Core 04/16/23 09:51 Pulse 75 04/16/23 09:51 Respiratory Rate 20 04/16/23 09:51 Blood Pressure 170/61 H 04/16/23 09:51 Blood Pressure Position Sitting 04/16/23 09:51 Pulse Oximetry 99 04/16/23 09:51 Oxygen Delivery Method Room Air 04/16/23 09:51 Oxygen Flow Rate 0 04/16/23 09:51 Pain Level 6 04/16/23 09:51
--- NOTE | 2023-04-16 10:26 | NUR.NOTE ---
Nursing Note: [employer] assumed care at 1000 04/16/23
[2023-04-16 10:33] LABS: Abs Immature Grans 0.04 10^3/uL (0.0-0.06); Absolute Eosinophil Count 0.18 10^3/uL (0.0-0.7); Absolute Lymphocyte Count 1.59 10^3/uL (1.2-3.4); Absolute Monocyte Count 0.57 10^3/uL (0.1-0.8); Basophils % 0.9; Eosinophils % 1.7; HCT 41.5 % (36.0-46.0); HGB 13.3 g/dL (11.2-15.7); Immature Grans % 0.4; MCH 28.5 pg (27.0-33.0); MCV 89 fL (80-95); MPV 10.2 fL (8.0-11.0); Monocytes % 5.4; Neutrophils % 76.6; Platelet Count 268 10^3/uL (130-400); RBC 4.67 10^6/uL (3.93-5.22); RDW 13.3 % (11.7-14.6); RDW-SD 43.2 fL; WBC 10.58 10^3/uL (4.4-10.8)
--- NOTE | 2023-04-16 10:50 | DI.VRAD_ITS ---
PROCEDURE INFORMATION: Exam: XR Chest Exam date and time: 04/16/2023 10:33 AM Age: 77 years old Clinical indication: Shortness of breath.No history of trauma or recent surgery is provided. TECHNIQUE: Imaging protocol: Radiologic exam of the chest. 2image(s) are provided. Views: 2 views. COMPARISON: 1. CT CHEST WO 02/08/2023 12:49 PM 2. CR XR PORTABLE CHEST AP 11/14/2022 8:14 PM FINDINGS: Lungs: There are chronic granulomatous changes including left hemithorax and central maribel. There is minimal subsegmental atelectasis versus post inflammatory scarring demonstrated. No lobar consolidation is appreciated. There is some mild chronic air trapping appearance similar overall. There is improved basal aeration overall in the interval. Pleural spaces: No pneumothorax or significant pleural effusion is appreciated. Heart/Mediastinum: The cardiomediastinal silhouette is upper normal in size.This can be seen with central averaging as well as maribel enlargement.No cardiac decompensation is appreciated. Diaphragm: The hemidiaphragms are symmetric. Bones/joints: Osseous alignment is maintained.No interval displaced fracture or dislocation is appreciated.There is slightly decreased bone mineralization overall. Soft tissues: No radiopaque foreign body or subcutaneous emphysema is appreciated. Other findings: No other significant interval changes are appreciated. IMPRESSION: There is improved basal aeration overall with no interval lobar consolidation appreciated.No interval acute cardiopulmonary changes are appreciated. Dictated and Authenticated by: Jose Aguilar MD. Ordering:SU Brody MD
[2023-04-16 10:53] LABS: ALT 23 U/L (14-59); AST 19 U/L (15-37); Albumin 3.9 g/dL (3.4-5.0); Alkaline Phosphatase 129 U/L (46-116); Anion Gap 9.5 mmol/L (3-11); BUN 12 mg/dL (7-18); Bilirubin, Total 0.5 mg/dL (0.2-1.0); CO2 29.5 mmol/L (21.0-32.0); CREATININE 0.9 mg/dL (0.55-1.02); Calcium 9.2 mg/dL (8.5-10.1); Chloride 102 mmol/L (98-107); Estimated GFR 65.44 (mL/min/1.73m2); Glucose 198 mg/dL (74-106); NT-proBNP 450 pg/mL (<300); Potassium 4.1 mmol/L (3.5-5.1); Sodium 141 mmol/L (136-145); Total Protein 7.6 g/dL (6.4-8.2); Troponin I < 50 ng/L (<or=60)
[2023-04-16 11:10] LABS: Bilirubin Negative (Negative); Blood Negative (Negative); Clarity Clear (Clear); Glucose Negative (Negative); Ketones 40 mg/dL (Negative); Leukocyte Esterase Negative (Negative); Nitrite Negative (Negative); pH 7.5 (5-8)
[2023-04-16 13:43] LABS: Troponin I < 50 ng/L (<or=60)
== END 2023-04-16 14:24 | disposition home or self-care (01) ==
PROVIDERS: Emergency Provider Emergency Medicine; PCP Nurse Practitioner Family
DX: R53.83 Other fatigue (principal); R07.9 Chest pain, unspecified; R06.02 Shortness of breath
CPT/HCPCS: 80053; 93005; 99284; 71046; 81003; 83880; 84484; 85025; 93010; 99283

== ENCOUNTER → 2023-05-30 14:33 | Outpatient (BNVA) | payer MEDICARE, OTHER, SELFPAY | PROVIDERS: PCP Nurse Practitioner Family; Referring Provider Nurse Practitioner Family; Visit Provider Student in an Organized Health Care Education/Training Program | DX: M17.12 Unilateral primary osteoarthritis, left knee (principal); M65.331 Trigger finger, right middle finger; M65.332 Trigger finger, left middle finger; G45.9 Transient cerebral ischemic attack, unspecified | CPT/HCPCS: 20610; J1040 ==

== ENCOUNTER 2023-06-01 11:58 | Day surgery (SDC) | payer MEDICARE, OTHER, SELFPAY ==
--- NOTE | 2023-06-01 10:36 | PDOC.DSDIS_ITS ---
Date of service: 06/01/23 Time of Service: 10:36 Discharge Plan Disposition Patient Disposition: Home Condition: Good Discharge Details Reason For Visit: RMF trigger release Attending Provider: Kevin Dubose Primary Care Provider: Ximena Graham Home Meds and New Rx's Prescriptions: New acetaminophen 500 mg tablet 1,000 mg PO TID Qty: 90 0RF Continued levalbuterol tartrate [Xopenex HFA] 45 mcg/actuation HFA aerosol inhaler 2 inh inhalation Q6H Qty: 15 12RF Spiriva Respimat 2.5 mcg/actuation mist 2 inh inhalation QAM Qty: 4 4RF multivitamin tablet 1 tab PO DAILY lisinopril 20 mg tablet 20 mg PO BID cyanocobalamin (vitamin B-12) [Vitamin B-12] 500 mcg tablet 500 mcg PO DAILY rosuvastatin 20 mg tablet 20 mg PO DAILY Rx Instructions: take with 10 mg for a total of 30 mg daily. rosuvastatin 10 mg tablet 10 mg PO DAILY Patient Comments: TAKE 1 TABLET BY MOUTH ONCE DAILY WITH 20MG TAB FOR 30 MG DAILY. labetalol 200 mg tablet See Rx Instructions PO BID Rx Instructions: 1 TAB QAM 1/2 TAB QHS PO twice a day; TAKE ONE TABLET BY MOUTH EVERY MORNING AND ONE HALF TABLET AT BEDTIME. Levemir FlexTouch U100 Insulin 100 unit/mL (3 mL) insulin pen 24 unit SUBCUT BID Rx Instructions: 09/29/22 24 UN QAM, 22 U QHS famotidine 40 mg tablet 40 mg PO DAILY clopidogrel [Plavix] 75 mg tablet 75 mg PO DAILY amlodipine [Norvasc] 10 mg tablet 10 mg PO DAILY cholecalciferol (vitamin D3) [Vitamin D3] 50 mcg (2,000 unit) Capsule 50 mcg PO DAILY gabapentin 300 mg capsule 300 mg PO TID PRN Rx Instructions: sig: one tab qAM, and one tab HS.; third time is prn Discontinued acetaminophen [Acetaminophen Extra Strength] 500 mg Tablet 500 mg PO Q6H PRN Discharge Instructions Stand Alone Forms: [facility]ate[facility] Ger[facility] Finger Release Referrals: Kevin Dubose MD [ [facility] STAFF PHYSICIAN] - Activity:: Activity as Tolerated Remove Dressings/Wound Care:: 48 hours Shower/Bathe:: 48 hours Diet:: As Tolerated Discharge Orders Discharge Orders: Discharge Order (Routine); Ordered 06/01/23 Ordered By: Ezequiel Griffiths DS: Diagnosis Discharge Diagnosis (1) Trigger finger, right middle finger: Status: Acute
[2023-06-01 12:11] VITALS: BP 160/79; PULSE 70; RESP 17; TEMP 36.6; O2SAT 95
[2023-06-01] MEDS: Sodium Bicarbonate 50 MEQ/50 ML VIAL (14:18)
[2023-06-01] MEDS: Lidocaine 1% Pres-Free W/EPI 1/200,000 30 ML VIAL (14:18)
[2023-06-01 14:39] VITALS: BP 160/74; PULSE 70; RESP 16; TEMP 36.4; O2SAT 96
--- NOTE | 2023-06-01 16:15 | W.PM.OP ---
Date of service: 06/01/23 Time of Service: 14:00 Operative Note Operative Note DATE OF PROCEDURE: 06/01/23 PRE-OP DIAGNOSIS: Right Middle Finger Trigger Finger POST-OP DIAGNOSIS: same PROCEDURE: Trigger Finger Release - Right Middle Finger SURGEON: Kevin Dubose ANESTHESIA TYPE: Local By Surgeon Refer to Anesthesia Record ESTIMATED BLOOD LOSS: 0 PATHOLOGY: none sent COMPLICATIONS: None Patient was transported to: same day Patient's condition: stable Indications: I have seen Ally in clinic for symptoms of a trigger finger. The catching, clicking, locking, and pain limited function. The diagnosis of trigger finger was evident. The symptoms had not responded to conservative measures. I discussed trigger finger release with the patient. I reviewed the risks of the procedure to include, but not limited to, bleeding, infection, pain, stiffness, incomplete release, damage to nerves or vessels, continued catching, recurrence. Despite these risks, the patient elected to proceed. Findings: There was a tightened A1 zohaib which was released. The flexor tendons were inspected and the patient was able to move the finger without any catching, clicking, or locking. Procedure Description: Ally was greeted in the preoperative holding area where the correct side was identified and marked. The consent was reviewed with the patient and signed. All questions were answered. She was taken back to the operating room. The patient was placed into the supine position on the operating room table with the right arm on an arm board. All bony prominences were well padded. No prophylactic antibiotics were administered since this was a clean, elective hand surgical case. The right arm was then prepped with Chloraprep and draped in a standard fashion with stockinette and extremity drape. A timeout to confirm correct identity, side and site, procedure, allergies, anesthesia, and medical concerns was performed. The surgical site was marked as a longitudinal incision directly over the A1 zohaib of the involved digit. This was confirmed with palpation during finger flexion. This area, overlying the metacarpal head, was then anesthetized with 1% Lidocaine. The patient tolerated this well and once the anesthetic had setup, the procedure began. A longitudinal incision was made through skin only, approximately 1cm. The deep tissues were dissected bluntly. Once the A1 zohaib and flexor tendons were identified the soft tissue including neurovascular structures were retracted medially and laterally. There were no crossing structures over the A1 zohaib. The proximal edge of the zohaib was identified and the zohaib was incised with tenotomy scissors. There was a release of the tendons once this was fully released. The tendons were then removed from the wound and inspected. Excess synovium was resected. The tendons were then returned and the patient was asked to move the finger into deep flexion and back to extension. There was no recreation of the pre-operative symptoms. The hand was then once more inspected for any A0 zohaib or area of possible constriction. The wound was then irrigated and the skin was closed with a 4-0 Nylon. This was dressed with gauze and a Conform dressing. The patient tolerated the procedure well and was returned to the Same Day Surgery area in a stable condition suffering no known complication.
== END 2023-06-01 15:10 | disposition home or self-care (01) ==
PROVIDERS: PCP Nurse Practitioner Family; Visit Provider Student in an Organized Health Care Education/Training Program
PROC: (CPT 26055; principal; 2023-06-01 14:00)
DX: M65.331 Trigger finger, right middle finger (principal)
CPT/HCPCS: 26055

== ENCOUNTER → 2023-06-10 10:41 | Outpatient (BNVA) | payer MEDICARE, OTHER, SELFPAY | PROVIDERS: PCP Nurse Practitioner Family; Referring Provider Nurse Practitioner Family; Visit Provider Student in an Organized Health Care Education/Training Program | DX: Z47.89 Encounter for other orthopedic aftercare (principal); M25.641 Stiffness of right hand, not elsewhere classified ==

== ENCOUNTER 2023-06-28 12:43 | Outpatient (CLI) | payer MEDICARE, OTHER, SELFPAY ==
--- NOTE | 2023-06-28 12:45 | RT.EKG_ITS ---
APPROVED REPORT Exam: Resting ECG Reason for Exam: chest pain Patient Location: O HR:70 bpm ECG Measurements Heart Rate [address] 254 P 12 QRSd 103 QRS 7 QT 424 T 78 QTc 458 Conclusion Sinus rhythm...normal P axis, V-rate 50- 99 Ventricular premature complex...V complex w/ short R-R interval Prolonged CT interval...CT >220, V-rate 50- 90 Low voltage, precordial leads...precordial leads <1.0mV Poor R wave progression
== END 2023-06-28 12:44 | disposition home or self-care (01) ==
LOC: DI.CARD 12:54
PROVIDERS: PCP Nurse Practitioner Family; Referring Provider Nurse Practitioner Family; Visit Provider Internal Medicine Cardiovascular Disease
DX: R07.9 Chest pain, unspecified (principal)
CPT/HCPCS: 93010

== ENCOUNTER → 2023-06-28 12:43 | Outpatient (BNVA) | payer MEDICARE, OTHER, SELFPAY | PROVIDERS: PCP Nurse Practitioner Family; Referring Provider Nurse Practitioner Family; Visit Provider Internal Medicine Cardiovascular Disease | DX: R00.2 Palpitations (principal); I10 Essential (primary) hypertension; R07.89 Other chest pain | CPT/HCPCS: 93005; 99214 ==

== ENCOUNTER → 2023-07-06 13:25 | Outpatient (CLI) | payer MEDICARE, OTHER, SELFPAY ==
--- NOTE | 2023-07-06 | DI.RAD_ITS ---
Exam(s) XR CHEST 2V PA LATERAL EXAM: XR CHEST 2V PA LATERAL CLINICAL HISTORY: COUGH R05.8. TECHNIQUE: 2D digital imaging was performed. COMPARISON: CR,XR XR CHEST 2V PA LATERAL from 04/16/2023 FINDINGS: 2 views: Heart size is upper normal. The mediastinum is not widened. No new infiltrates nor pleural effusions. No pulmonary edema. IMPRESSION: No acute pulmonary findings. DATA REPOSITORY: RADIATION DOSE DELIVERED:
== END ==
PROVIDERS: PCP Nurse Practitioner Family; Visit Provider Physician Assistant Medical
DX: R05.8 Other specified cough (principal)
CPT/HCPCS: 71046

== ENCOUNTER → 2023-07-21 10:43 | Outpatient (BNVA) | payer MEDICARE, OTHER, SELFPAY | PROVIDERS: PCP Nurse Practitioner Family; Referring Provider Nurse Practitioner Family; Visit Provider Student in an Organized Health Care Education/Training Program | DX: J47.9 Bronchiectasis, uncomplicated (principal); R91.1 Solitary pulmonary nodule | CPT/HCPCS: 99214 ==

== ENCOUNTER 2023-07-22 20:09 | Outpatient (REF) | payer MEDICARE, OTHER, SELFPAY | END 2023-07-22 20:10 | disposition home or self-care (01) | LOC: LBN 20:09 | PROVIDERS: PCP Nurse Practitioner Family; Visit Provider Student in an Organized Health Care Education/Training Program | DX: J47.9 Bronchiectasis, uncomplicated (principal) | CPT/HCPCS: 87070; 87205 ==

== ENCOUNTER → 2023-11-08 14:49 | Outpatient (BNVA) | payer MEDICARE, OTHER, SELFPAY | PROVIDERS: PCP Nurse Practitioner Family; Referring Provider Nurse Practitioner Family; Visit Provider Student in an Organized Health Care Education/Training Program | DX: J47.9 Bronchiectasis, uncomplicated (principal); R91.1 Solitary pulmonary nodule | CPT/HCPCS: 99214 ==

== ENCOUNTER → 2023-11-18 00:44 | Outpatient (CLI) | payer MEDICARE, OTHER, SELFPAY ==
--- NOTE | 2023-11-18 10:49 | DI.CT_ITS ---
Exam(s) CT CHEST WO EXAM: CT CHEST WO CLINICAL HISTORY: assess stability of mult pulmonary nodules,r91.8. TECHNIQUE: Imaging protocol: Axial computed tomography images were obtained and coronal and sagittal reformatted images were created and reviewed. COMPARISON: CT CT CHEST PE CTA from 11/09/[address] CHEST WO from 02/08/2023 FINDINGS: Tracheobronchial tree: Patent where visualized. Pulmonary parenchyma: No consolidation or dominant measurable mass. There are multiple calcified gran uloma present. The small nodular density in the anterior basal segment of the right lower lobe appea rs to represent a confluence of vessels. No new noncalcified pulmonary nodules are present. Mediastinum and Bessy: No dominant adenopathy or fluid collection. The esophagus is unremarkable.There are calcified lymph nodes seen in the mediastinum consistent with prior granulomatous disease. Ther e is a small herniation of fat through the aortic hiatus. Thyroid gland: Unremarkable. Pleura: No effusion or pneumothorax. Heart: Mild cardiomegaly. Coronary artery calcification is present. No pericardial effusion. Aorta: Thoracic aorta non-dilated. Atherosclerosis. Upper abdomen: Unremarkable. Lymph nodes: Within normal limits. Soft tissues: Unremarkable. Bones:Within normal limits for the patient's age. There are hemangioma seen in a few vertebral maddie s. IMPRESSION: Stable calcified granuloma. No new pulmonary nodules. RADIATION DOSE DELIVERED: 553.05mGy.cm Total DLP 553.05mGy.cm Total DLP DATA REPOSITORY: All CT scans at this facility are submitted to the National Radiology Data Registry (NRDR) Dose Index Registry (DIR) with the [employer] (A[employer]). RADIATION OPTIMIZATION: All CT scans at this facility use at least one of these dose optimization te chniques: automated exposure control; mA and/or kV adjustment per patient size (includes targeted exa ms where dose is matched to clinical indication); or iterative reconstruction.
== END ==
PROVIDERS: PCP Nurse Practitioner Family; Visit Provider Student in an Organized Health Care Education/Training Program
DX: R91.8 Other nonspecific abnormal finding of lung field (principal)
CPT/HCPCS: 71250

== ENCOUNTER 2023-12-01 13:15 | Outpatient (REF) | payer MEDICARE, OTHER, SELFPAY ==
[2023-12-01 17:11] LABS: ALT 24 U/L (14-59); AST 25 U/L (15-37); Albumin 3.9 g/dL (3.4-5.0); Alkaline Phosphatase 99 U/L (46-116); Anion Gap 9.4 mmol/L (3-11); BUN 17 mg/dL (7-18); Bilirubin, Total 0.5 mg/dL (0.2-1.0); CO2 29.6 mmol/L (21.0-32.0); CREATININE 0.7 mg/dL (0.55-1.02); Calcium 9.8 mg/dL (8.5-10.1); Calculated LDL 63 mg/dL (<100); Chloride 107 mmol/L (98-107); Cholesterol 139 mg/dL (<200); Estimated GFR 87.92 (mL/min/1.73m2); Glucose 150 mg/dL (74-106); HDL Cholesterol 51 mg/dL (40-60); Potassium 4.1 mmol/L (3.5-5.1); Sodium 146 mmol/L (136-145); Total Protein 7.2 g/dL (6.4-8.2); Triglyceride 129 mg/dL (<150); Vitamin B12 1396 pg/mL (193-986)
[2023-12-01 17:19] LABS: Folate > 20.0 ng/mL (8.6-20.0)
[2023-12-01 17:33] LABS: Hemoglobin A1C 6.5 % (<5.7)
== END 2023-12-01 13:16 | disposition home or self-care (01) ==
LOC: NCHCN 13:15
PROVIDERS: PCP Nurse Practitioner Family; Referring Provider Nurse Practitioner Family; Visit Provider Nurse Practitioner Family
DX: E11.65 Type 2 diabetes mellitus with hyperglycemia (principal); E53.9 Vitamin B deficiency, unspecified; Z00.00 Encounter for general adult medical examination without abnormal findings
CPT/HCPCS: 80053; 80061; 82306; 82607; 82746; 83036

== ENCOUNTER 2023-12-05 15:23 | Outpatient (CLI) | payer MEDICARE, OTHER, SELFPAY ==
--- NOTE | 2023-12-05 11:48 | DI.RAD_ITS ---
Exam(s) XR ANKLE RT COMPLETE EXAM: XR ANKLE RT COMPLETE CLINICAL HISTORY: RIGHT ANKLE PAIN. TECHNIQUE: 2D digital imaging was performed. Three views. COMPARISON: CR XR ANKLE RT COMPLETE from 04/07/2021 FINDINGS: BONES: No acute fracture is present. No bony destructive lesion is seen. A fixation plate is again noted along the lateral malleolus. Two screws are noted in the medial malleolus. Fractures are aga in noted of the syndesmotic screws. The inferior most syndesmotic screw has been removed since the p revious exam. There may be some bony bridging at the syndesmosis. JOINTS: The ankle mortise is normally aligned. SOFT TISSUE: Mild diffuse soft tissue swelling. IMPRESSION: Hardware in place with fractured syndesmotic screws, unchanged. Some bony bridging is seen at the sy ndesmosis. DATA REPOSITORY: RADIATION DOSE DELIVERED:
== END 2023-12-05 15:24 | disposition home or self-care (01) ==
LOC: DIORS 15:24
PROVIDERS: PCP Nurse Practitioner Family; Referring Provider Nurse Practitioner Family; Visit Provider Student in an Organized Health Care Education/Training Program
DX: M17.12 Unilateral primary osteoarthritis, left knee; M76.71 Peroneal tendinitis, right leg
CPT/HCPCS: 20610; 99213; 73610; J1040

== ENCOUNTER 2024-02-19 14:03 | Emergency (ER) | payer MEDICARE, OTHER, SELFPAY ==
[2024-02-19] VITALS (16 sets, daily range): BP systolic 123–166; BP diastolic 55–67; PULSE 63–88; RESP 12–26; TEMP 36.4; O2SAT 90–98
--- NOTE | 2024-02-19 14:30 | DI.CT_ITS ---
Exam(s) CT CHEST PE CTA EXAM: CT CHEST PE CTA CLINICAL HISTORY: shortness of breath, no improvement with abx. TECHNIQUE: Imaging Protocol: CT angiography of the chest was performed using pulmonary embolus enrique col. Multi planar reconstructions were performed. CONTRAST MATERIAL: Intravenous: Omnipaque 350 Contrast volume: 100 cc COMPARISON: CT CT CHEST WO from 11/18/2023 FINDINGS: CHEST: PULMONARY ARTERIES: There are no obvious intraluminal filling defects to suggest acute pulmonary embo li. LUNGS: Multiple small bilateral calcified granulomas in both lung gordon evident. There is a noncalc ified nodular infiltrate in the left lower lobe measuring approximately 1 x 1 cm. . no large infiltr ates and no pleural effusions. No significant focal findings in the trachea and mainstem bronchi. MEDIASTINUM: There is no hilar nor mediastinal adenopathy. Visualized thyroid unremarkable. CARDIAC: Heart size is upper normal. There is no pericardial effusion.Caliber of the thoracic aorta is within normal limits. No evidence of dissection. There is no significant shift of the interventri cular septum. PARTIALLY VISUALIZED UPPERMOST ABDOMEN: No obvious findings OSSEOUS: No significant osseous lesions.. IMPRESSION: 1. No evidence of acute pulmonary emboli. No evidence of pulmonary infarction.No pleural effusions. 2. No evidence of aortic dissection nor pericardial effusion. 3. 1 cm nodular infiltrate noted in the left lower lobe, not evident on prior CT scan of 11/18/2023. RADIATION DOSE DELIVERED: 468.04mGy.cm Total DLP DATA REPOSITORY: All CT scans at this facility are submitted to the National Radiology Data Registry (NRDR) Dose Index Registry (DIR) with the [employer] (ACR). RADIATION OPTIMIZATION: All CT scans at this facility use at least one of these dose optimization te chniques: automated exposure control; mA and/or kV adjustment per patient size (includes targeted exa ms where dose is matched to clinical indication); or iterative reconstruction.
--- NOTE | 2024-02-19 14:32 | ED.GENADUL_ITS ---
Discharge Plan Disposition Patient Disposition: Home Condition: Stable Discharge Details Clinical Impression: Cough, Dyspnea Primary Care Provider: Ximena Graham ED Provider: Balbir Beavers Home Meds and New Rx's Prescriptions: New dexamethasone 4 mg tablet 10 mg PO DAILY 1 Days Qty: 3 0RF Continued insulin aspart U-100 [Novolog FlexPen U-100 Insulin] 100 unit/mL (3 mL) insulin pen 5 unit subcut TID multivitamin tablet 1 tab PO DAILY lisinopril 20 mg tablet 20 mg PO BID cyanocobalamin (vitamin B-12) [Vitamin B-12] 500 mcg tablet 500 mcg PO DAILY rosuvastatin 10 mg tablet 10 mg PO DAILY Patient Comments: TAKE 1 TABLET BY MOUTH ONCE DAILY WITH 20MG TAB FOR 30 MG DAILY. labetalol 200 mg tablet See Rx Instructions PO BID Rx Instructions: 1 TAB QAM 1/2 TAB QHS PO twice a day; TAKE ONE TABLET BY MOUTH EVERY MORNING AND ONE HALF TABLET AT BEDTIME. Levemir FlexTouch U100 Insulin 100 unit/mL (3 mL) insulin pen 24 unit SUBCUT BID Rx Instructions: 09/29/22 24 UN QAM, 22 U QHS famotidine 40 mg tablet 40 mg PO DAILY clopidogrel [Plavix] 75 mg tablet 75 mg PO DAILY amlodipine [Norvasc] 10 mg tablet 10 mg PO DAILY cholecalciferol (vitamin D3) [Vitamin D3] 50 mcg (2,000 unit) Capsule 50 mcg PO DAILY gabapentin 300 mg capsule 300 mg PO TID PRN Rx Instructions: sig: one tab qAM, and one tab HS.; third time is prn acetaminophen 500 mg tablet 1,000 mg PO TID Qty: 90 0RF Discharge Instructions Additional Instructions: Your blood work and CAT scan did not show any concerning findings at this time, there is no evidence of continued pneumonia Follow-up with your primary care provider this week and discuss if you should discontinue your lisinopril and your cough continues If you feel more ill, have severe worsening shortness of breath or new symptoms such as high fevers or chest pain return to the emergency department for reevaluation HPI General Mode of arrival: ambulatory . Date/Time Provider Initiated Documentation: 02/19/24 14:06 . Limitations to Documentation: no limitations . Information obtained by: patient . History of Present Illness 78 year old F presents to the emergency department with the chief complaint of Cough and shortness of breath, described as moderate, Patient started experiencing this day(s) (10) and it has been constant. No relieving factors improve symptom(s), No exacerbating factors reported . Patient notes denies chest pain and fever/chills. Patient did receive the following treatments prior to arrival, none Related Data Home Medications Medication Instructions Recorded Confirmed cyanocobalamin (vitamin B-12) 500 500 mcg PO DAILY 07/11/18 02/19/24 mcg tablet (Vitamin B-12) lisinopril 20 mg tablet 20 mg PO BID 07/11/18 02/19/24 multivitamin 1 tab PO DAILY 07/11/18 02/19/24 cholecalciferol (vitamin D3) 50 50 mcg PO DAILY 07/23/20 02/19/24 mcg (2,000 unit) capsule (Vitamin D3) gabapentin 300 mg capsule 300 mg PO TID PRN 07/23/20 02/19/24 rosuvastatin 10 mg tablet 10 mg PO DAILY 11/09/21 02/19/24 labetalol 200 mg tablet See Rx Instructions PO BID 01/12/22 02/19/24 insulin detemir U-100 100 unit/mL 24 unit subcut BID 09/29/22 02/19/24 (3 mL) subcutaneous pen (Levemir FlexTouch U-100 Insulin) amlodipine 10 mg tablet (Norvasc) 10 mg PO DAILY 11/15/22 02/19/24 clopidogrel 75 mg tablet (Plavix) 75 mg PO DAILY 11/15/22 02/19/24 famotidine 40 mg tablet 40 mg PO DAILY 11/15/22 02/19/24 acetaminophen 500 mg tablet 1,000 mg (2 x 500 mg) PO TID #90 06/01/23 02/19/24 tabs insulin aspart U-100 100 unit/mL 5 unit subcut TID 12/05/23 02/19/24 (3 mL) subcutaneous pen (Novolog FlexPen U-100 Insulin aspart) dexamethasone 4 mg tablet 10 mg (2.5 x 4 mg) PO DAILY 1 day 02/19/24 #3 tabs Previous Rx's Medication Instructions Recorded acetaminophen 500 mg tablet 1,000 mg (2 x 500 mg) PO TID #90 06/01/23 tabs dexamethasone 4 mg tablet 10 mg (2.5 x 4 mg) PO DAILY 1 day 02/19/24 #3 tabs Allergies Allergy/AdvReac Type Severity Reaction Status Date / Time aspirin Allergy Severe GI Bleed Verified 02/19/24 14:17 Calcium Channel Blocking Allergy Severe Other (See Verified 02/19/24 14:17 Agent Dilt Comment) ibuprofen [From Motrin] Allergy Severe GI Bleed Verified 02/19/24 14:17 pneumococcal vaccine Allergy Severe Swelling/Ed Verified 02/19/24 14:17 [From Pneumovax-23] rafi pregabalin Allergy Severe Other (See Verified 02/19/24 14:17 Comment) Tetracyclines Allergy Severe Makes my Verified 02/19/24 14:17 skin peel and throat close up buspirone Allergy Unknown Other (See Verified 02/19/24 14:17 Comment) codeine Allergy Unknown Itching Verified 02/19/24 14:17 pentazocine [From Talwin] Allergy Unknown Other (See Verified 02/19/24 14:17 Comment) sulfamethoxazole Allergy Unknown Other (See Verified 02/19/24 14:17 [From Bactrim] Comment) trimethoprim [From Bactrim] Allergy Unknown Other (See Verified 02/19/24 14:17 Comment) furosemide [From Lasix] Allergy Other (See Verified 02/19/24 14:17 Comment) glipizide Allergy Other (See Verified 02/19/24 14:17 Comment) metformin Allergy Other (See Verified 02/19/24 14:17 Comment) sertraline Allergy Other (See Verified 02/19/24 14:17 Comment) spironolactone Allergy Other (See Verified 02/19/24 14:17 Comment) ciprofloxacin [From Cipro] AdvReac Severe made my Verified 02/19/24 14:17 stomach bleed duloxetine [From Cymbalta] AdvReac Severe made me Verified 02/19/24 14:17 sick and suicidal prednisone AdvReac Severe Raises BP Verified 02/19/24 14:17 and blood sugar per Pt tramadol AdvReac Severe major GI Verified 02/19/24 14:17 upset fluticasone furoate AdvReac Mild Other (See Verified 02/19/24 14:17 [From Trelegy Ellipta] Comment) umeclidinium AdvReac Mild Other (See Verified 02/19/24 14:17 [From Trelegy Ellipta] Comment) vilanterol AdvReac Mild Other (See Verified 02/19/24 14:17 [From Trelegy Ellipta] Comment) propoxyphene AdvReac Unknown Other (See Verified 02/19/24 14:17 [From Darvocet-N] Comment) LABA AdvReac Intermediate Tremor Uncoded 02/19/24 14:17 levaquin AdvReac Unknown Other (See Uncoded 02/19/24 14:17 Comment) General Stated Complaint: RespSymp RADHA: 3 Review of Systems All systems reviewed & are unremarkable except as noted in HPI and below Constitutional Constitutional: Denies chills, Denies fever(s) and Denies weakness Eyes Eyes: Denies loss of vision Cardiovascular Cardiovascular: Denies chest pain and Reports dyspnea Respiratory Respiratory: Reports cough and Reports dyspnea Gastrointestinal Gastrointestinal: Denies abdominal pain, Denies nausea and Denies vomiting Musculoskeletal Musculoskeletal: Denies joint swelling Neurologic Neurologic: Denies loss of vision and Denies weakness Exam Const General: no acute distress Orientation: alert HENMT Head: normal to inspection Ears: external ears normal General nose exam: external nose normal Mouth: moist mucous membranes Eyes General: appearance normal, both eyes and all related structures Neck Neck: normal visual inspection Resp Auscultation: rhonchi Cardio Rate: regular rate Skin General skin exam: no rashes or lesions noted Neuro General: patient alert and patient oriented x3 Extrem General: normal to inspection Psych Mental Status: mental status grossly normal Course Vital Signs Vital signs: Vital Signs Temperature 36.4 C 02/19/24 14:19 Pulse 75 02/19/24 14:19 Respiratory Rate 16 02/19/24 14:19 Blood Pressure 162/62 H 02/19/24 14:19 Pulse Oximetry 97 02/19/24 14:19 Temperature 36.4 C 02/19/24 14:19 Temperature Source Temporal Artery Scan 02/19/24 14:19 Pulse 75 02/19/24 14:19 Respiratory Rate 16 02/19/24 14:19 Respiratory Effort Short of Breath 02/19/24 14:21 Blood Pressure 162/62 H 02/19/24 14:19 Blood Pressure Position Sitting 02/19/24 14:19 Pulse Oximetry 97 02/19/24 14:19 Oxygen Delivery Method Room Air 02/19/24 14:19 Oxygen Flow Rate 0 02/19/24 14:19 Pain Level 8 02/19/24 14:19 Lab/Test Results Lab/Test Results: 02/19/24 14:24 Blood Blood Culture - Pending 02/19/24 14:24 Blood Blood Culture - Pending Medical Decision Making 78-year-old female with a history of bronchiectasis comes in with complaints of 10 days of cough and shortness of breath. Was seen at urgent care and put on Augmentin with no significant improvement, had a follow-up x-ray which showed continued infiltrate so came here for evaluation. She denies any fevers though has had some chills. She is alert and oriented x 4 on arrival coughing intermittently she has rhonchi in both lung gordon at the bases. She is no JVD, no calf tenderness. Suspect respiratory infection, will send viral panel and obtain CBC, CMP, procalcitonin and CTA of the chest to further evaluate for possible infiltrates versus edema versus PE. She had no chest pain so doubt WI. Will treat her symptoms with a DuoNeb and dexamethasone and reassess Labs and imaging unremarkable, patient states she feels mildly better after neb and dexamethasone lungs now clear on exam. Still has an intermittent dry cough. Reviewed her med list and she is on lisinopril, discussed results with patient and she stable for discharge I did recommend discussing with her primary care provider if the cough continues possibly stopping her lisinopril. Provided short course of dexamethasone as she is allergic to prednisone per her allergy list. Return precautions given Differential Diagnosis Differential Diagnosis: URI, COVID, pneumonia Medical Records Medical records reviewed: Yes I reviewed the patient's medical records. Imaging Data Radiologic Study: Attestation: I personally reviewed and interpreted this imaging study as follows: Imaging: CT Scan Radiologist's impression: No acute findings Lab Data Lab results reviewed: Yes I reviewed the patient's lab results. Quality:SDOH Health Related Social Needs: No Data to Display PFSH All Active Problems (Updated 02/19/24 @ 16:17 by Balbir Beavers MD) Dyspnea (Acute) Cough (Acute) Peroneal tendonitis of right lower extremity (Acute) Palpitations (Acute) Trigger finger, left middle finger (Acute) Lung collapse (Acute) Bronchiectasis (Acute) Lumbar herniated disc (Acute) Allergic rhinitis (Acute) Late, effect, cerebrovascular disease (Acute) PVC (premature ventricular contraction) (Acute) Leg edema (Acute) Nocturnal hypoxia (Acute) Mammogram abnormal (Acute) Pain of both breasts (Acute) Epigastric discomfort (Acute) Psoriasis (Chronic) Joint pain (Acute) Cough (Acute) Dyspnea (Acute) at rest Hearing loss (Acute) Nasal congestion (Acute) Impairment of speech discrimination (Acute) Sensorineural hearing loss, bilateral (Acute) Decreased hearing (Acute) Transient neurological symptoms (Acute) Pulmonary nodule (Acute) Breast pain, left (Acute) Fatigue (Acute) Dermatitis (Acute) Body mass index [BMI] 31.0-31.9, adult (Acute) Depression (Chronic) Dyspnea on exertion (Acute) Atypical chest pain (Acute) Chest pain (Acute) Painful orthopaedic hardware (Acute) Status post removal of syndesmotic screw DOS: 04/16/2021 CVA (cerebral vascular accident) (Chronic) Diabetes mellitus (Chronic) COPD without exacerbation (Acute) Neuropathy (Acute) DVT prophylaxis (Acute) Discharge planning issues (Acute) Fever (Acute) Vulvitis (Acute) 06/2020. Unclear etiology. Rx with topical yeast/steroid. 08/2020. punch bx of R vaginal vestibule. 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 Lipoma of extremity (Acute) Arthritis of knee, left (Acute) Depo-Medrol injection: 12/05/23; 05/30/23; 11/22/2022; 04/06/2022; 08/05/2021; 04/29/2021 S/P skin biopsy (Acute) 08/2020. R side of vaginal vestibule. Bimalleolar fracture of right ankle (Acute 03/16/20) March 2020 s/p ORIF Periprosthetic fracture around internal prosthetic right knee joint, initial encounter (Acute 03/16/20) March 2020 s/p ORIF Status post total knee replacement, right (Acute 02/05/19) Dr. Monge Hypertension (Chronic) Medical History Abdominal pain, epigastric Adjustment disorder with anxiety Ankle pain, right Arthralgia of wrist, right Arthritis Arthritis of knee, right Asymptomatic PVCs Belching Bilateral leg edema Breast pain Cerebral hemorrhage(nontraumatic) Generalized arthritis GI bleed Gout Hand joint pain Headache Hiatal hernia History of depression meds in past presently on no rx for depression History of hemorrhagic stroke with residual hemiparesis (R) History of TIAs Hyperlipidemia Hypertension Knee pain, left LUQ pain Neck pain on right side TIM (obstructive sleep apnea) has used cpap in past presently not using Osteoarthritis RUQ pain Sensorineural hearing loss Shortness of breath at rest Shoulder pain, right Skin tag Trigger finger (acquired) Type 2 diabetes mellitus Vulvar irritation Surgical History History of appendectomy History of arthroscopic knee surgery History of colonoscopy History of hysterectomy Family History Father Heart disease Social History Smoking/Tobacco Use Status: Never Smoking risk assessment performed?: Yes Alcohol Intake: never Drug use: Never Substance use type: does not use Household members: significant other Housing: house Number of Children: 0 current occupation: retired. Pets and animals: No Current gender identity: female What is your relationship status?: Panel score (0-1 are the most socially isolated patients): 0 What type of physical activity do you participate in: none Seatbelt use: always Do you feel safe at home: Yes Do you feel safe in your relationship?: Yes Female Reproductive History Menstrual Menopause type: surgical
[2024-02-19] MEDS: Dexamethasone 10 MG/ML VIAL IVP (14:56)
[2024-02-19] MEDS: Albuterol/Ipratropium 3 ML UPD VIAL UPD (14:56)
[2024-02-19 14:58] LABS: BE (Venous) 7 mmol/L (-2-3); HCO3 (Venous) 32 mmol/L (23-28); O2 Sat (Venous) 60 %; TCO2 (Venous) 29 mmol/L (24-29); pCO2 (Venous) 54 mmHg (41-51); pH (Venous) 7.38 (7.31-7.41); pO2 (Venous) 34 mmHg
[2024-02-19 15:00] LABS: Abs Immature Grans 0.02 10^3/uL (0.0-0.06); Absolute Basophil Count 0.05 10^3/uL (0.0-0.2); Absolute Eosinophil Count 0.14 10^3/uL (0.0-0.7); Absolute Lymphocyte Count 2.07 10^3/uL (1.2-3.4); Absolute Monocyte Count 0.35 10^3/uL (0.1-0.8); Absolute Neutrophil Count 4.27 10^3/uL (1.2-6.7); Basophils % 0.7 %; HCT 40.7 % (36.0-46.0); Immature Grans % 0.3 %; MCH 29.5 pg (27.0-33.0); MCHC 31.9 % (32.0-36.0); MCV 93 fL (80-95); MPV 9.9 fL (8.0-11.0); Monocytes % 5.1 %; Neutrophils % 61.9 %; Platelet Count 221 10^3/uL (130-400); RDW 13.2 % (11.7-14.6); RDW-SD 45.2 fL
[2024-02-19 15:18] LABS: ALT 21 U/L (14-59); AST 19 U/L (15-37); Albumin 3.7 g/dL (3.4-5.0); Alkaline Phosphatase 104 U/L (46-116); BUN 18 mg/dL (7-18); Bilirubin, Total 0.4 mg/dL (0.2-1.0); CREATININE 0.8 mg/dL (0.55-1.02); Calcium 9.4 mg/dL (8.5-10.1); Chloride 105 mmol/L (98-107); Glucose 233 mg/dL (74-106); Magnesium 1.9 mg/dL (1.8-2.4); Potassium 3.6 mmol/L (3.5-5.1); Sodium 145 mmol/L (136-145); Total Protein 7.5 g/dL (6.4-8.2)
[2024-02-19 15:36] LABS: Procalcitonin < 0.1 ng/mL
[2024-02-19] MEDS: Normal Saline Flush 10 ML SYR IVP (15:36)
[2024-02-19] MEDS: Normal Saline - Diluent 50 ML VIAL IJ (15:36)
[2024-02-19] MEDS: Omnipaque 350 MG/ML 100 ML BTL IJ (15:37)
[2024-02-19 15:39] LABS: COVID-19 PCR Negative (Negative); Influenza A PCR Negative (Negative); Influenza B PCR Negative (Negative); RSV PCR Negative (Negative)
[2024-02-19 15:41] LABS: Source Nasopharynx
--- NOTE | 2024-02-19 16:08 | DI.VRAD_ITS ---
PROCEDURE INFORMATION: Exam: CTA Chest With Contrast Exam date and time: 02/19/2024 3:40 PM Age: 78 years old Clinical indication: Patient HX: Shortness of breath, no improvement with abx TECHNIQUE: Imaging protocol: Computed tomographic angiography of the chest with contrast. Exam focused on the arteries. 3D rendering (Not supervised by radiologist): MIP and/or 3D reconstructed images were created by the technologist. COMPARISON: CT CHEST PE CTA 11/09/2022 11:25 AM FINDINGS: Pulmonary arteries: Contrast bolus timing is adequate for assessment of the pulmonary arteries, mixing artifact precludes characterization of the distal segmental and subsegmental arteries. Within these limitations, no pulmonary embolus is seen. No secondary evidence for hemodynamically significant pulmonary embolus. Aorta: Mild calcified atherosclerotic disease of the intrathoracic aorta and its major branches. Celiac trunk and mesenteric arteries: 50% narrowing of the proximal aspect of the superior mesenteric artery. Trachea: Mild increase in mineralization of the cartilaginous rings of the trachea consistent with TBO. Lungs: Unchanged scattered scarring and nodularity for example left upper lobe, series 8, image 219). Scattered basilar atelectasis. Pleural spaces: Unremarkable. No pneumothorax. No pleural effusion. Heart: Unremarkable. No cardiomegaly. No pericardial effusion. Coronary arteries: Moderate to severe calcified atherosclerotic disease of the coronary vasculature. Lymph nodes: Calcified hilar and mediastinal lymph nodes. Diaphragm: Fat containing hiatal hernia. Spleen: Hypoattenuation of the spleen too small to characterize by modality, appears stable from prior CT pulmonary angiogram performed on 11/09/2022. Bones/joints: Unremarkable. No acute fracture. Soft tissues: Unremarkable. Other findings: Diffuse demineralization. Scattered granulomas. IMPRESSION: 1. Within the above limitations, no pulmonary embolus. 2. Additional findings as above without significant acuity. Dictated and Authenticated by: Eliot Perez MD. Ordering:STANLEY Mcgregor MD
== END 2024-02-19 16:25 | disposition home or self-care (01) ==
PROVIDERS: Emergency Provider Emergency Medicine; PCP Nurse Practitioner Family
DX: R05.9 Cough, unspecified (principal); R06.00 Dyspnea, unspecified; I10 Essential (primary) hypertension; E11.9 Type 2 diabetes mellitus without complications; I69.351 Hemiplegia and hemiparesis following cerebral infarction affecting right dominant side; Z79.4 Long term (current) use of insulin; Z79.02 Long term (current) use of antithrombotics/antiplatelets
CPT/HCPCS: 36415; 71275; 80053; 82805; 84145; 87040; 87637; 94640; 99285; 83735; 85025; 99284; J1100; J3490; J7620

== ENCOUNTER → 2024-02-22 10:54 | Outpatient (BNVA) | payer MEDICARE, OTHER, SELFPAY | PROVIDERS: PCP Nurse Practitioner Family; Referring Provider Nurse Practitioner Family; Visit Provider Physician Assistant Surgical | DX: R05.9 Cough, unspecified (principal); J47.9 Bronchiectasis, uncomplicated; R91.1 Solitary pulmonary nodule; R06.2 Wheezing | CPT/HCPCS: 94640; 99214; J7620 ==

== ENCOUNTER → 2024-03-27 01:52 | Outpatient (CLI) | payer MEDICARE, OTHER, SELFPAY ==
--- NOTE | 2024-03-27 10:15 | DI.RAD_ITS ---
Exam(s) XR THORACIC SPINE COMPLETE EXAM: XR THORACIC SPINE COMPLETE CLINICAL HISTORY: NECK PAIN,M54.2. TECHNIQUE: 2D digital imaging was performed. Three views. COMPARISON: CR XR CHEST 2V PA LATERAL from 07/06/2023 FINDINGS: BONES: There is no fracture or destructive lesion. The vertebral bodies and posterior elements are un remarkable. ALIGNMENT: Within normal limits. DISKS: Interverebral disc spaces are maintained. Endplate osteophytes projecting anteriorly and tow avril the right in the lower thoracic spine. SOFT TISSUE: Visualized lungs are clear. Calcified mediastinal lymph node again noted. IMPRESSION: Mild degenerative changes. DATA REPOSITORY: RADIATION DOSE DELIVERED:
--- NOTE | 2024-03-27 10:15 | DI.RAD_ITS ---
Exam(s) XR CERVICAL SPINE COMP 4-5V EXAM: XR CERVICAL SPINE COMP 4-5V CLINICAL HISTORY: CHRONIC NECK PAIN,M54.2. TECHNIQUE: 2D digital imaging was performed. Five views were performed. COMPARISON: No exams were available for comparison FINDINGS: BONES: No fracture or destructive lesion. Vertebral bodies show normal height. Facet degenerative ch anges present. No neural foraminal narrowing. DISKS: Intervertebral disc spaces are maintained. Mild endplate osteophytes. ALIGNMENT: Cervical spinal alignment is within normal limits. The odontoid and atlantoaxial articulat ions are normal. SOFT TISSUE: Normal. The lung apices are clear. IMPRESSION: Degenerative changes mainly of the facet joints. No significant neural foraminal narrowing. DATA REPOSITORY: RADIATION DOSE DELIVERED:
== END ==
LOC: DI 01:52
PROVIDERS: PCP Nurse Practitioner Family; Visit Provider Nurse Practitioner Family
DX: M54.2 Cervicalgia (principal)
CPT/HCPCS: 72050; 72072

== ENCOUNTER 2024-04-30 21:08 | Outpatient (REF) | payer MEDICARE, OTHER, SELFPAY ==
[2024-04-30 22:00] LABS: COMMENT (LAB VIEW ONLY) 98.22 mg/dL
== END 2024-04-30 21:09 | disposition home or self-care (01) ==
LOC: NCHCN 21:08
PROVIDERS: PCP Nurse Practitioner Family; Visit Provider Nurse Practitioner Family
DX: E11.9 Type 2 diabetes mellitus without complications (principal)
CPT/HCPCS: 82043; 82570

== ENCOUNTER → 2024-05-01 01:45 | Outpatient (CLI) | payer MEDICARE, OTHER, SELFPAY ==
--- NOTE | 2024-05-01 14:09 | DI.RAD_ITS ---
Exam(s) XR SHOULDER RT COMPLETE 2+V EXAM: XR SHOULDER RT COMPLETE 2+V CLINICAL HISTORY: Rt shoulder pain, M25.511. TECHNIQUE: 2D digital imaging was performed. Five views. COMPARISON: No exams were available for comparison FINDINGS: BONES: No acute fracture is present. No bony destructive lesion is seen. Mild spurring at the unders urface of the acromion. JOINTS: No dislocation present. Glenohumeral joint space is maintained. AC joint shows mild degener ative changes. SOFT TISSUE: Normal. IMPRESSION: Mild degenerative changes. DATA REPOSITORY: RADIATION DOSE DELIVERED:
== END ==
LOC: DI 01:46
PROVIDERS: PCP Nurse Practitioner Family; Visit Provider Nurse Practitioner Family
DX: M25.511 Pain in right shoulder (principal); M19.011 Primary osteoarthritis, right shoulder
CPT/HCPCS: 73030

== ENCOUNTER → 2024-05-09 11:03 | Outpatient (BNVA) | payer MEDICARE, OTHER, SELFPAY | PROVIDERS: PCP Nurse Practitioner Family; Referring Provider Nurse Practitioner Family; Visit Provider Physician Assistant Surgical | DX: J47.9 Bronchiectasis, uncomplicated (principal); R91.1 Solitary pulmonary nodule | CPT/HCPCS: 99214 ==

== ENCOUNTER 2024-06-01 00:27 | Outpatient (CLI) | payer MEDICARE, OTHER, SELFPAY ==
--- NOTE | 2024-06-01 08:00 | DI.CT_ITS ---
Exam(s) CT CHEST WO EXAM: CT CHEST WO CLINICAL HISTORY: follow up LLL infiltrate, bronchiectasis, J47.9 TECHNIQUE: Imaging Protocol: Axial computed tomography images with coronal and sagittal reformatted images were created and reviewed CONTRAST MATERIAL: Intravenous: Omnipaque 350 Contrast volume:structured data ml. COMPARISON: CT CT CHEST PE CTA from 06/18/[address] THORAX ABD/PEL CTA from 08/28/[address] CHEST WO from 11/26/[address] CHEST PE CTA from 02/19/2024 FINDINGS: Exam mildly limited by motion. Pulmonary parenchyma: No consolidation. No left lower lobe infiltrate on the current exam. No domin ant measurable mass. Scattered calcified granulomas. Tracheobronchial tree: Small area of mild bronchiectasis noted at the peripheral anteroinferior right lower lobe with some mucous plugging distally. Mediastinum and Bessy: Calcified mediastinal lymph nodes again noted. Pleura: No effusion. No pneumothorax. Heart: The heart is mildly dilated. Moderate coronary artery calcifications are seen. Aorta: Thoracic aorta non-dilated. Mild atherosclerotic changes. Upper abdomen: No acute findings. Bones: Degenerative changes in the spine. Soft tissues: Unremarkable. IMPRESSION: Resolution of left lower lobe infiltrate. Minimal right lower lobe bronchiectasis is distal mucous plugging. Scattered calcified granulomas. RADIATION DOSE DELIVERED: Total DLP DATA REPOSITORY: All CT scans at this facility are submitted to the National Radiology Data Registry (NRDR) Dose Index Registry (DIR) with the [employer] (ACR). RADIATION OPTIMIZATION: All CT scans at this facility use at least one of these dose optimization te chniques: automated exposure control; mA and/or kV adjustment per patient size (includes targeted exa ms where dose is matched to clinical indication); or iterative reconstruction.
== END 2024-06-01 00:47 ==
LOC: DI 00:28
PROVIDERS: PCP Nurse Practitioner Family; Visit Provider Physician Assistant Surgical
DX: J47.9 Bronchiectasis, uncomplicated (principal)
CPT/HCPCS: 71250

== ENCOUNTER → 2024-06-05 10:31 | Outpatient (BNVA) | payer MEDICARE, OTHER, SELFPAY | PROVIDERS: PCP Nurse Practitioner Family; Referring Provider Nurse Practitioner Family; Visit Provider Student in an Organized Health Care Education/Training Program | DX: M47.812 Spondylosis without myelopathy or radiculopathy, cervical region (principal) | CPT/HCPCS: 99214 ==

== ENCOUNTER 2024-06-26 01:20 | Outpatient (CLI) | payer MEDICARE, OTHER, SELFPAY ==
--- NOTE | 2024-06-26 07:15 | DI.MRI_ITS ---
Exam(s) MR CERVICAL SPINE WO EXAM: MR CERVICAL SPINE WO CLINICAL HISTORY: Pain to right upper extremity and neck,cervical radiculitis,m54.12 TECHNIQUE: Multiplanar multisequence MRI of the cervical spine was performed without intravenous con trast. COMPARISON: CR XR CERVICAL SPINE COMP 4-5V from 03/27/2024 FINDINGS: CERVICOMEDULLARY JUNCTION: Intact with no evidence of cerebellar tonsillar ectopia. No obvious abnor mality of the odontoid process. No evidence of Chiari 1 malformation. CERVICAL SPINAL CORD: There is no obvious abnormal signal in the cervical spinal cord and no evidence of focal cord atrophy nor focal cord swelling. OSSEOUS:There are no cervical fractures evident. No significant osseous lesions in the cervical vert ebrae. There is no loss of the normal cervical curvature. INDIVIDUAL LEVELS: C2-3: No disc herniation nor central canal stenosis. No foraminal stenosis. There is moderate unilat eral facet arthropathy on the left side. No obvious significant foraminal stenosis on this side. Th ere is no facet arthropathy on the opposite-right side and no foraminal narrowing on the right side. C3-4: Normal disc height. No disc herniation or central canal stenosis. There is bilateral facet ar thropathy at this level, slightly more so on the right side. No Luschka joint osteophytes.There is m ild foraminal stenosis on the right side. Lesser amount of degenerative change noted in the left fac et joint. There is mild foraminal stenosis on the left side. C4-5: Normal disc height. No disc herniation or central canal stenosis. Mild bilateral facet degene rative changes. No Luschka joint osteophytes evident.No foraminal stenosis on either side. C5-6: This level exhibits normal disc height. There is mild anterolisthesis C5 upon C6 resulting in mild annular bulging which slightly indents the thecal sac but not the spinal cord. Central canal di mensions are within normal limits at this level with AP measurement of 11-12 mm. There are mild dege nerative changes in the left facet joint and moderate degenerative changes in the right facet joint. There are no prominent Luschka joint osteophytes. There is mild bilateral foraminal stenosis at thi s level. C6-7: Normal disc height. There is also mild anterolisthesis of C6 upon C7 with asymmetric annular b ulging but no prominent disc herniation evident. Annular bulging mildly effaces the anterior thecal sac but not the cervical cord at this level. AP measurement of the canal at this level is 12 mm. Th ere is moderate bilateral facet arthropathy. No prominent Luschka joint osteophytes. There is mild left-sided foraminal stenosis. No obvious right-sided foraminal stenosis. C7-T1: No disc herniation nor central canal stenosis. Mild foraminal stenosis bilaterally. No Luschk a joint osteophytes. No foraminal stenosis on either side at this level. IMPRESSION: 1. There is preserved disc height at each level in the cervical spine in this 79-year-old patient. 2. There is mild anterolisthesis of C5 upon C6 and C6 upon C7 with mild annular bulging at these leve ls but no dominant disc herniations nor prominent central canal stenosis. 3. There is some mild-moderate facet arthropathy. No prominent Luschka joint osteophytes. There is mild foraminal stenosis at C5-6 and C6-7 levels 4. No significant osseous lesions in the cervical vertebrae and no loss of the normal curvature of t he cervical spine. DATA REPOSITORY:
== END 2024-06-26 01:40 ==
LOC: DI 01:20
PROVIDERS: PCP Nurse Practitioner Family; Visit Provider Anesthesiology Pain Medicine
DX: M54.12 Radiculopathy, cervical region (principal)
CPT/HCPCS: 72141

== ENCOUNTER 2024-07-03 14:22 | Outpatient (CLI) | payer MEDICARE, OTHER, SELFPAY ==
[2024-07-03 14:34] VITALS: BP 151/70; PULSE 69; RESP 20; TEMP 36.6; O2SAT 95
[2024-07-03 14:59] VITALS: O2SAT 94
[2024-07-03 15:00] VITALS: O2SAT 98
[2024-07-03] MEDS: Nerve Block Tray 1 EACH MC (15:17)
[2024-07-03] MEDS: Bupivacaine 0.5% Pres-Free 10 ML VIAL IJ (15:17)
--- NOTE | 2024-07-03 15:17 | PDOC.PAIN ---
Date of service: 07/03/24 Time of Service: 15:19 Pain Managment Procedure Note Procedure Note Procedure Note: Ultrasound guidedTrigger Point Injection ? Location: Right trapezius and thoracic parspinous ? Pre-procedure Diagnosis:? M79.10- Myalgia, unspecified site ? Post-procedure Diagnosis:? The same as above ? Sedation: none? Estimated blood loss: zero ? Surgeon:? Sonu Rios MD ? Procedure Detail:?? The procedure and potential risks were explained to the patient and informed written consent was obtained. Time out was performed in procedure room with nursing staff confirming the patient's identity, procedure to be performed, allergies, and any blood thinning or anti-platelet medications. Sterile gloves were used, a face mask was worn, and new single dose vials of all medications were used with the top being swabbed with alcohol and given time to dry prior to withdrawal of medication.? Trigger points were palpated and confirmed to reproduce the patient?s pain symptoms.? Pre-injection ultrasound scanning of the area of interest was performed using Linear transducer, identifying relevant anatomy, landmarks, and neurovascular structures allowing for optimal needle path. The site was then prepared in the usual sterile fashion, using thorough Chlorhexadine preparation of the skin and sterile draping. The same ultrasound transducer was then passed into the sterile field using sterile probe cover and sterile ultrasound gel. Using high-frequency ultrasound probe with sterile cover target was identified.? A 1.5 inch 25 gauge needle was then used to anesthetize the skin.? A 25-gauge 1.5 inch needle was advanced to the target.? following negative aspiration, 9 cc from a 0.5% bupivacaine was injected.? ? The patient tolerated the procedure well. Plan:? Follow up prn.
== END 2024-07-03 14:23 | disposition home or self-care (01) ==
LOC: PC 14:22
PROVIDERS: PCP Nurse Practitioner Family; Visit Provider Anesthesiology Pain Medicine
DX: M79.18 Myalgia, other site (principal)
CPT/HCPCS: 00123; 20552; J0665

== ENCOUNTER 2024-07-19 08:41 | Outpatient (REF) | payer MEDICARE, OTHER, SELFPAY ==
[2024-07-19 16:26] LABS: Abs Immature Grans 0.02 10^3/uL (0.0-0.06); Absolute Eosinophil Count 0.24 10^3/uL (0.0-0.7); Absolute Lymphocyte Count 1.72 10^3/uL (1.2-3.4); Absolute Neutrophil Count 4.89 10^3/uL (1.2-6.7); Basophils % 1.3 %; Eosinophils % 3.2 %; HCT 40.4 % (36.0-46.0); HGB 13.1 g/dL (11.2-15.7); Immature Grans % 0.3 %; MCH 29.2 pg (27.0-33.0); MCHC 32.4 % (32.0-36.0); MCV 90 fL (80-95); Monocytes % 6.7 %; Neutrophils % 65.5 %; RBC 4.48 10^6/uL (3.93-5.22); RDW-SD 46.1 fL; WBC 7.47 10^3/uL (4.4-10.8)
[2024-07-19 16:55] LABS: ALT 15 U/L (14-59); AST 32 U/L (15-37); Albumin 3.7 g/dL (3.4-5.0); Alkaline Phosphatase 88 U/L (46-116); Amylase 70 U/L (25-115); Anion Gap 8.7 mmol/L (3-11); BUN 17 mg/dL (7-18); Bilirubin, Total 0.44 mg/dL (0.2-1.0); CO2 28.3 mmol/L (21.0-32.0); CREATININE 0.6 mg/dL (0.55-1.02); Calcium 9.8 mg/dL (8.5-10.1); Chloride 108 mmol/L (98-107); Estimated GFR 90.68 (mL/min/1.73m2); Glucose 116 mg/dL (74-106); Lipase 49 U/L (16-77); Potassium 4.3 mmol/L (3.5-5.1); Sodium 145 mmol/L (136-145); Total Protein 7.3 g/dL (6.4-8.2)
[2024-07-19 18:01] LABS: Hemoglobin A1C 6.2 % (<5.7)
== END 2024-07-19 08:42 | disposition home or self-care (01) ==
LOC: NCHCN 08:41
PROVIDERS: PCP Nurse Practitioner Family; Visit Provider Nurse Practitioner Family
DX: E11.65 Type 2 diabetes mellitus with hyperglycemia (principal); R19.5 Other fecal abnormalities
CPT/HCPCS: 80053; 83690; 82150; 83036; 85025

== ENCOUNTER 2024-07-24 01:02 | Outpatient (CLI) | payer MEDICARE, OTHER, SELFPAY ==
--- NOTE | 2024-07-24 08:30 | DI.US_ITS ---
APPROVED REPORT EXAM: Comprehensive 2D, Doppler, and color-flow Echocardiogram Patient Location: Out-Patient [facility] Mica: Laura Haynes RDCS (AE) Indications: Abnormal EKG, Pre operative exam Other Information Study Quality: Adequate Conclusion Normal left ventricular wall thickness and chamber size. Ejection fraction biplane is 58%. Visually it appears to be 60 to 65% without segmental wall motion abnormalities Normal right ventricular size and function Left atrium is moderately enlarged. Mild right atrial enlargement Aortic valve is trileaflet and sclerotic without stenosis or regurgitation Normal mitral valve with mild regurgitation Estimated right ventricular systolic pressure is 39 mmHg Wall motion Left Ventricle The left ventricle is normal size. The left ventricular systolic function is normal. The left ventric ular ejection fraction is within the normal range. There is normal left ventricular wall thickness. T here is normal LV segmental wall motion. There is no ventricular septal defect visualized. LVEF is 58 %. Right Ventricle The right ventricle is normal size. The right ventricular systolic function is normal. Atria Left atrium is moderately dilated. Right atrium is mildly dilated. The interatrial septum is intact w ith no evidence for an atrial septal defect. Aortic Valve The Aortic valve is sclerotic. There is no aortic valvular stenosis. No aortic regurgitation is prese nt. Mitral Valve The mitral valve is normal in structure. No evidence of mitral valve stenosis. Mild mitral regurgitat ion. Tricuspid Valve The tricuspid valve is normal in structure. There is no tricuspid valve stenosis. Trace tricuspid reg urgitation. The RVSP is 39.1 mmHg. Pulmonic Valve The pulmonary valve is normal in structure. There is no pulmonic valvular stenosis. There is no pulmo mervin valvular regurgitation. Great Vessels The aortic root is normal in size. The ascending aorta is normal Aortic arch is normal in caliber. IV C is normal in size and collapses >50% with inspiration. Pericardium There is no pericardial effusion. 2D Dimensions IVSD d PLAX 1.00 cm F: 0.6-1.0 Ao Root d 2.98 cm F: 2.7 - 3.3 LVPW d PLAX 1.03 cm F: 0.6 - 1.0 Ao Asc Diam d 3.35 cm F: 2.3 - 3.1 LVID d PLAX 4.61 cm F: 3.8 - 5.2 LVDs 3.25 cm F: 2.2 - 3.5 LV EF Teichholz 56.6 % FS 29.54 % LV EDV (Teich) 97.8 mL LV ESV (Teich) 42.5 mL M-Mode TAPSE 2.85 cm (M/F) >1.7 Auto EF LV EDV A4C 120.8 mL LV EDV A2C 118.5 mL LV EDV BP 122.6 mL LV ESV A4C 53.0 mL LV ESV A2C 51.1 mL LV ESV BP 51.9 mL LVEF(%) A4C 56.1 % LVEF(%) A2C 56.9 % LVEF(%) BP 57.6 % LV SV A4C 67.8 ml LV SV A2C 67.4 ml LV SV BP 70.6 ml LV CO A4C 4.1 L/min LV CO A2C 4.5 L/min LV CO BP 4.3 L/min HR A4C 60.40 BPM HR A2C 66.30 BPM LV EDV Index (BP) LA Volume LA Length A4C 6.1 cm LA Length A2C 5.8 cm LA Area A4C s 27.15 cm2 LA Area A2C s 23.27 cm2 LA Vol A4C A-L 101.71 mL LA Vol A2C A-L 78.84 mL LA Vol Biplane A-L 92.0 mL LA Vol/BSA A4C A-L LA Vol/BSA A2C A-L LA Vol/BSA BP A-L 44.2 mL/m2 LA Vol A4C MOD 89.6 mL LA Vol A2C MOD 75.1 mL LA Vol BP MOD 84.0 mL RA Volume RA Area A4C 16.2 cm2 RA ESV A4C (A-L) 41.3mL RA Vol/BSA A4C A-L RA Length A4C 5.4 cm RA ESV A4C (MOD) 40.2mL LV Diastology MV E' medial 0.048 (>0.07 m/s) MV E Vmax 1.35 (0.4-1.3 m/s) MV E/E' MED 28.06 (<14) MV A Vmax 1.30 (0.4-1.3 m/s) MV E' lateral 0.071 (>0.1 m/s) E/A Ratio 1.0 MV E/E' LAT 18.93 (<14) MV E' Average 0.060 m/s MV E/E'(average) 22.61 Aortic Valve AoV Vmax 1.95 m/s LVOT Vmax 1.19 m/s AoV Peak Grad 15.2 mmHg LVOT Peak Grad 5.6 mmHg AoV Area (Vmax) 1.66 cm2 LVOT VTI 0.274 m AoV VTI 0.497 m LVOT Mean Grad 3.3 mmHg AoV Mean Davin. 1.39 m/s LVOT SV 74.72 mL AoV Mean Grad 8.7 mmHg LVOT Diam s 1.85 cm AoV Area (VTI) 1.50 cm2 AV Regurg Peak Gr. 15.20 mmHg Velocity Ratio 0.61 Mitral Valve MV DT 191 (160-240 msec) MV Vmax TIPS 1.30 m/s MV Mean Grad 3.2 (<2mmHg) MV VTI 0.411 m Pulmonary Valve PV Vmax 0.79 (0.5-1.5 m/s) RVOT Vmax 0.77 m/s PV Peak Grad 2.5 mmHg RVOT Peak Gr. 2.4 mmHg PV Mean Davin 0.61 m/s RVOT VTI 0.236 m PV Mean Grad 1.6 mmHg RVOT Mean Gr. 1.5 mmHg Tricuspid Valve RA Pressure 3.00 mmHg TR Vmax 3.01 m/s TV S' 0.10 m/s TR Peak Grad 36.1 mmHg RVSP (TR) 39.1 mmHg
== END 2024-07-24 01:22 ==
LOC: DI 01:02
PROVIDERS: PCP Nurse Practitioner Family; Visit Provider Nurse Practitioner Family
DX: R94.31 Abnormal electrocardiogram [ECG] [EKG] (principal)
CPT/HCPCS: 93306

== ENCOUNTER → 2024-09-03 14:04 | Outpatient (BNVA) | payer MEDICARE, OTHER, SELFPAY | PROVIDERS: PCP Nurse Practitioner Family; Referring Provider Nurse Practitioner Family; Visit Provider Student in an Organized Health Care Education/Training Program | DX: M17.12 Unilateral primary osteoarthritis, left knee (principal) | CPT/HCPCS: 20610; J1010 ==

== ENCOUNTER 2024-11-26 01:18 | Outpatient (CLI) | payer MEDICARE, OTHER, SELFPAY ==
--- NOTE | 2024-11-26 | DI.CT_ITS ---
Exam(s) CT ABDOMEN PELVIS W EXAM: CT ABDOMEN PELVIS W CLINICAL HISTORY: R14.0 Abn distension(gasseous), abd bloating TECHNIQUE: Imaging Protocol: Axial computed tomography images with coronal and sagittal reformatted images were created and reviewed. CONTRAST MATERIAL: Intravenous: Omnipaque 350 Contrast volume:75 mL Oral: Yes COMPARISON: CT CT THORAX ABD/PEL CTA from 08/28/[address] CHEST PE CTA from 02/19/2024 FINDINGS: ABDOMEN: Lung Bases: There are calcified granuloma in the lung bases. Liver: Normal density. No measurable mass. Portal, Superior Mesenteric, and Splenic Veins: Unremarkable. Gallbladder and Biliary Tract: No radiodense calculus or dilation. Pancreas: Normal density, no abnormal calcifications or inflammatory process. Spleen: Normal. Adrenals: No masses seen. Kidneys: Normal size, contour and axis. No radiodense stones or obstructive uropathy. No masses seen. Abdominal Aorta: Abdominal portion non-dilated. Atherosclerotic calcification is present. Bowel: No obstruction or bowel wall thickening. There is a diverticulum associated with the duodenum adjacent to the pancreatic head. There are scattered diverticula in the colon but no evidence of acu te diverticulitis. There is a moderate amount of stool throughout the colon. There is no evidence o f appendicitis. Peritoneal Cavity: No ascites, collection or mesenteric inflammatory response. No free air. Lymph Nodes: Within normal limits. Bones: Within normal limits for the patient's age. Soft Tissues: There is a small fat containing umbilical hernia. PELVIS: Bladder: Symmetric distention, no gross wall thickening. Reproductive Organs: The uterus is absent. Lymph Nodes: Within normal limits. Bones: Within normal limits for the patient's age. IMPRESSION: 1. No acute abdominal or pelvic process. 2. Colonic diverticulosis without evidence of acute diverticulitis. 3. Moderate amount of stool throughout the colon. No evidence of obstruction. RADIATION DOSE DELIVERED: 618.59mGy.cm Total DLP DATA REPOSITORY: All CT scans at this facility are submitted to the National Radiology Data Registry (NRDR) Dose Index Registry (DIR) with the [employer] (ACR). RADIATION OPTIMIZATION: All CT scans at this facility use at least one of these dose optimization te chniques: automated exposure control; mA and/or kV adjustment per patient size (includes targeted exa ms where dose is matched to clinical indication); or iterative reconstruction.
[2024-11-26] MEDS: Barium Sulfate 2% W/V-Creamy Vanilla Smoothie 450 ML BTL PO ×2 (12:06→12:09)
[2024-11-26 13:44] LABS: CREATININE 0.6 mg/dL (0.55-1.02); Estimated GFR 90.68 (mL/min/1.73m2)
[2024-11-26] MEDS: Normal Saline - Diluent 50 ML VIAL IJ (14:01)
[2024-11-26] MEDS: Omnipaque 350 MG/ML 100 ML BTL IJ (14:02)
== END 2024-11-26 01:38 ==
LOC: DI 01:18
PROVIDERS: PCP Nurse Practitioner Family; Visit Provider Nurse Practitioner Family
DX: K57.30 Diverticulosis of large intestine without perforation or abscess without bleeding (principal)
CPT/HCPCS: 36415; 74177; 82565; J3490

== ENCOUNTER → 2024-12-03 10:00 | Outpatient (BNVA) | payer MEDICARE, OTHER, SELFPAY | PROVIDERS: PCP Nurse Practitioner Family; Referring Provider Nurse Practitioner Family; Visit Provider Physician Assistant Surgical | DX: J47.9 Bronchiectasis, uncomplicated (principal); R91.1 Solitary pulmonary nodule | CPT/HCPCS: 99214 ==

== ENCOUNTER → 2024-12-06 08:31 | Outpatient (BNVA) | payer MEDICARE, OTHER, SELFPAY | PROVIDERS: PCP Nurse Practitioner Family; Referring Provider Nurse Practitioner Family; Visit Provider Student in an Organized Health Care Education/Training Program | DX: M17.12 Unilateral primary osteoarthritis, left knee (principal) | CPT/HCPCS: 20610; J1010 ==

== ENCOUNTER 2025-01-30 07:51 | Outpatient (CLI) | payer MEDICARE, OTHER, SELFPAY ==
--- NOTE | 2025-01-30 07:45 | RT.EKG_ITS ---
APPROVED REPORT Exam: Resting ECG Reason for Exam: SOB palpitations Patient Location: O HR:62 bpm ECG Measurements Heart Rate 62 AXIS CO 272 P 2 QRSd 99 QRS -17 QT 462 T 84 QTc 470 Conclusion Sinus rhythm...normal P axis, V-rate 50- 99 Prolonged CO interval...CO >220, V-rate 50- 90 LVH with secondary repolarization abnormality...multi-LVH criteria, abnrm ST-T Baseline wander in lead(s) V6
== END 2025-01-30 07:52 | disposition home or self-care (01) ==
LOC: DI.CARD 07:52
PROVIDERS: PCP Nurse Practitioner Family; Visit Provider Registered Nurse
DX: R00.2 Palpitations (principal); I49.3 Ventricular premature depolarization; R06.00 Dyspnea, unspecified
CPT/HCPCS: 93010

== ENCOUNTER → 2025-01-30 09:08 | Outpatient (BNVA) | payer MEDICARE, OTHER, SELFPAY | PROVIDERS: PCP Nurse Practitioner Family; Referring Provider Nurse Practitioner Family; Visit Provider Registered Nurse | DX: R07.9 Chest pain, unspecified (principal); I51.7 Cardiomegaly; R00.2 Palpitations | CPT/HCPCS: 93005; 99215 ==

== ENCOUNTER 2025-01-31 10:45 | Outpatient (CLI) | payer MEDICARE, OTHER, SELFPAY ==
--- NOTE | 2025-02-05 08:57 | W.HOLTRPT ---
Date of service: 02/05/25 Time of Service: 08:58 Holter Monitor Report Referring Provider:: Aubrie Dangelo Indications:: Palpitations Holter Monitor Note: This is a Holter monitor. Patient was monitored for 5 hours. Rhythm throughout was sinus with an average heart rate of 63. Minimum was 48, maximum 82. There were very very rare isolated atrial and ventricular ectopic beats. There was no atrial fibrillation, no high-grade AV block, no pauses greater than 3 seconds. Multiple symptoms were reported all of which correlated to sinus rhythm
== END 2025-01-31 10:46 | disposition home or self-care (01) ==
PROVIDERS: PCP Nurse Practitioner Family; Visit Provider Registered Nurse
DX: R07.9 Chest pain, unspecified (principal); R06.00 Dyspnea, unspecified; R00.2 Palpitations
CPT/HCPCS: 93225; 93226

== ENCOUNTER 2025-02-04 00:10 | Outpatient (CLI) | payer MEDICARE, OTHER, SELFPAY ==
--- NOTE | 2025-02-04 08:45 | DI.NM_ITS ---
APPROVED REPORT Exam: Pharmacologic Patient Location: Out-Patient Room/Bed: Stress Nurse: Jessica Devries RN Ordering Provider:AMA PRESLEY, Contact Number: BMI: 32.23 Baseline Rhythm: Sinus Rhythm, 1st degree AV block Indications: chest pain and dyspnea on exertion Medical History Medical History: fibromyalgia, HTN, DM2, asymptomatic PVCs, TIAs, SOB @ rest, cerebral hemorrhage (no n traumatic), adjustment disorder with anxiety, HLD, hx hemorrhagic stroke w/ residual hemiparesis, O SA, GI bleed, SANTIAGO, depression, leg edema, atypical CP, COPD, neuropathy, GERD, 1st degree AV block Cardiac Medications: oxygen, rosuvastatin, pantoprazole, ondansetron, multivitamin, lisinopril, leval buterol, labetolol, insulin aspart, gabapentin, famotidine, plavix, amlodipine Allergies: aspirin, calcium channel blocking agents, motrin, pneumovac-23, pregabalin, tetracyclines, codeine, talwin, bactrim, lasix, glipizide, metformin, sertraline, spironolactone, cipro, cymbalta, prednisone, tramadol, insulin aspart, tresiba, LABA, trelegy ellipta, levaquin, darvocet-N Cardiac Risk Factors: family hx, diabetes, HTN, HLD Previous Cardiac Procedures: none Pretest Chest Pain Characteristics: No chest pain Exercise History: Sedentary Physical Disabilities: Legs Lung Sounds: Clear to auscultation Heart Sounds: Regular Stress Test Details Test: Pharmacologic stress testing performed using 0.4 mg of regadenoson per 5 mL given IV over 10 s econds. Reason for pharmacologic stress test: physical limitation. Nuclear Acquisition: Rest Tc-99m/Stress Tc-99m 1 day Rest Isotope: Tc-99m Sestamibi. Dose: 10.0 Date: 02/04/2025 Injection Time: 1110 Stress Isotope: Tc-99m Sestamibi. Dose: 30.0 Date: 02/04/2025 Injection Time: 1315 HR Resting HR Supine: 66 bpm Max Heart Rate (APMHR): 140 bpm Target HR (85% APMHR): 119 bpm Max HR Achieved: 87 bpm % of APMHR: 62 Recovery HR: 75 bpm BP Resting BP Supine: 124/80 mmHg Max BP: 140/80 mmHg Recovery BP: 96/60 mmHg ECG Resting ECG: Sinus Rhythm, 1st degree AV block Ectopy: rare PAC, rare PVC Stress ECG: Sinus Rhythm, 1st degree AV block ST Change: Nondiagnostic low heart rate Arrhythmia: occasional PACs, occasional PVCs Recovery ECG: Sinus Rhythm, 1st degree AV block Recovery ST Change: Nondiagnostic low heart rate Recovery Arrhythmia: occasional PVCs Clinical Stress Symptoms: Abdominal discomfort, Headache, Dyspnea Angina Score: None Rate Pressure Product: 10302 Stress ECG Conclusion 1. Resting electrocardiogram showed late transition 2. Patient underwent testing using pharmacologic stress with regadenoson 3. Peak heart rate achieved was 62% of maximal predicted for age 4. The electrocardiographic portion of the test was nondiagnostic 5. See MPI report Stress Test Summary STAGE HR BP SpO2 Symptoms NOTES Supine 66 124/80 96 1 min post Lexiscan injection 87 140/80 96 mod. SOB 3 min post Lexiscan injection 83 132/70 98 6 min post Lexiscan injection 75 96/60 94 headache, stomach pain SOB resolved by end of test. Pt left ambulatory in no acute distress. MPI Conclusion Myocardial perfusion is normal. There is no ischemia or evidence of prior infarction Ejection fraction is 60% with normal wall motion
[2025-02-04] MEDS: Regadenoson 0.4 MG/5 ML SYR IVP (13:15)
== END 2025-02-04 00:30 ==
LOC: DI 00:11
PROVIDERS: PCP Nurse Practitioner Family; Visit Provider Internal Medicine Cardiovascular Disease
DX: R07.9 Chest pain, unspecified (principal); R06.00 Dyspnea, unspecified
CPT/HCPCS: 78452; 93016; 93018; 93017; J2785

== ENCOUNTER 2025-02-07 11:26 | Outpatient (CLI) | payer MEDICARE, OTHER, SELFPAY ==
--- NOTE | 2025-02-07 10:30 | DI.US_ITS ---
APPROVED REPORT EXAM: Comprehensive 2D, Doppler, and color-flow Echocardiogram Patient Location: Out-Patient Bedspread Seamer: Kyree Hopkins RDCS (AE) Indications: Palpitations, SANTIAGO Other Information Study Quality: Fair. Technically limited study due to body habitus. Conclusion Normal left ventricular wall thickness and chamber size. Ejection fraction is 65%. Wall motion is n ormal Normal right ventricular size and function Mildly dilated left atrium. Right atrial size is normal Aortic valve is mildly sclerotic and trileaflet without stenosis or regurgitation Mild mitral annular calcification Ascending aorta measures 3.52 cm Wall motion Left Ventricle The left ventricle is normal size. The left ventricular systolic function is normal. The left ventric ular ejection fraction is within the normal range. There is normal left ventricular wall thickness. T here is normal LV segmental wall motion. There is no ventricular septal defect visualized. LVEF is 65 %. Right Ventricle The right ventricle is normal size. The right ventricular systolic function is normal. Atria Left atrium is mildly dilated. The right atrium size is normal. The interatrial septum is intact with no evidence for an atrial septal defect. Aortic Valve The aortic valve is mildly sclerotic. Aortic valve is trileaflet. There is no aortic valvular stenosi s. No aortic regurgitation is present. Mitral Valve Mild mitral annular calcification. No evidence of mitral valve stenosis. There is no mitral valve reg urgitation noted. Tricuspid Valve The tricuspid valve is normal in structure. There is no tricuspid valve stenosis. Trace tricuspid reg urgitation. Pulmonic Valve The pulmonary valve is normal in structure. There is no pulmonic valvular stenosis. There is no pulmo mervin valvular regurgitation. Great Vessels The aortic root is normal in size. The ascending aorta is mildly dilated. Aortic arch is normal in ca liber. IVC is normal in size and collapses >50% with inspiration. Pericardium There is no pericardial effusion. 2D Dimensions IVSD d PLAX 0.96 cm F: 0.6-1.0 Ao Root d 2.95 cm F: 2.7 - 3.3 LVPW d PLAX 0.99 cm F: 0.6 - 1.0 Ao Asc Diam d 3.52 cm F: 2.3 - 3.1 LVID d PLAX 5.23 cm F: 3.8 - 5.2 LVDs 3.42 cm F: 2.2 - 3.5 LV EF Teichholz 63.3 % FS 34.60 % LV EDV (Teich) 131.0 mL LV ESV (Teich) 48.0 mL Stroke Vol Index (Teich) 39.33 M-Mode TAPSE 2.15 cm (M/F) >1.7 LV Volumes - Method of Disks (Sultana's) Single Plane 2D LV Volumes Biplane 2D LV Volumes LV EDV A4C 89.5 mL LV EDV BP 104.81 mL F: 46 - 106 LV ESV A4C 30.0 mL LV ESV BP 36.4 mL LVEF(%) A4C 66.5 % LVEF(%) BP 65.23 % F: 54 - 74 LV EDV A2C 117.2 mL LV EDV BP Index 49.67 mL/m2 F: 29 - 61 LV ESV A2C 40.3 mL SV BP LVEF(%) A2C 65.6 % SV Index LA Volume LA Length A4C 5.7 cm LA Length A2C 6.3 cm LA Area A4C s 14.03 cm2 LA Area A2C s 22.79 cm2 LA Vol A4C A-L 29.42 mL LA Vol A2C A-L 70.27 mL LA Vol Biplane A-L 47.8 mL LA Vol/BSA A4C A-L LA Vol/BSA A2C A-L LA Vol/BSA BP A-L 22.6 mL/m2 LA Vol A4C MOD 29.0 mL LA Vol A2C MOD 68.0 mL LA Vol BP MOD 46.2 mL RA Volume RA Area A4C 9.7 cm2 RA ESV A4C (A-L) 17.5mL RA Vol/BSA A4C A-L RA Length A4C 4.6 cm RA ESV A4C (MOD) 16.5mL LV Diastology MV E' medial 0.042 (>0.07 m/s) MV E Vmax 0.95 (0.4-1.3 m/s) MV E/E' MED 22.86 (<14) MV A Vmax 1.30 (0.4-1.3 m/s) MV E' lateral 0.051 (>0.1 m/s) E/A Ratio 0.7 MV E/E' LAT 18.56 (<14) MV E' Average 0.046 m/s MV E/E'(average) 20.48 Aortic Valve AoV Vmax 1.65 m/s LVOT Vmax 0.97 m/s AoV Peak Grad 10.9 mmHg LVOT Peak Grad 3.7 mmHg AoV Area (Vmax) 2.05 cm2 LVOT VTI 0.260 m AoV VTI 0.422 m LVOT Mean Grad 2.2 mmHg AoV Mean Davin. 1.17 m/s LVOT SV 90.92 mL AoV Mean Grad 6.2 mmHg LVOT Diam s 2.10 cm AoV Area (VTI) 2.15 cm2 AV Regurg Peak Gr. 10.90 mmHg Velocity Ratio 0.59 Mitral Valve MV DT 311 (160-240 msec) Pulmonary Valve PV Vmax 0.96 (0.5-1.5 m/s) RVOT Vmax 0.80 m/s PV Peak Grad 3.7 mmHg RVOT Peak Gr. 2.6 mmHg PV Mean Davin 0.76 m/s RVOT VTI 0.216 m PV Mean Grad 2.5 mmHg RVOT Mean Gr. 1.5 mmHg
== END 2025-02-07 11:46 ==
LOC: DI 11:26
PROVIDERS: PCP Nurse Practitioner Family; Visit Provider Internal Medicine Cardiovascular Disease
DX: R06.00 Dyspnea, unspecified (principal); R00.2 Palpitations
CPT/HCPCS: 93306

== ENCOUNTER 2025-02-19 16:32 | Outpatient (REF) | payer MEDICARE, OTHER, SELFPAY ==
[2025-02-19 17:30] LABS: TSH (W/Ref FT4) 1.71 uIU/mL (0.36-3.74)
== END 2025-02-19 16:33 | disposition home or self-care (01) ==
LOC: NCHCN 16:32
PROVIDERS: PCP Nurse Practitioner Family; Visit Provider Nurse Practitioner Family
DX: R00.2 Palpitations (principal)
CPT/HCPCS: 84443

== ENCOUNTER → 2025-02-27 09:24 | Outpatient (BNVA) | payer MEDICARE, OTHER, SELFPAY | PROVIDERS: PCP Nurse Practitioner Family; Referring Provider Nurse Practitioner Family; Visit Provider Registered Nurse | DX: R07.9 Chest pain, unspecified (principal); R00.2 Palpitations; I10 Essential (primary) hypertension; R60.0 Localized edema; Z79.811 Long term (current) use of aromatase inhibitors; Z79.02 Long term (current) use of antithrombotics/antiplatelets | CPT/HCPCS: 99214 ==

== ENCOUNTER → 2025-04-19 10:08 | Outpatient (BNVA) | payer MEDICARE, OTHER, SELFPAY | PROVIDERS: PCP Nurse Practitioner Family; Referring Provider Nurse Practitioner Family; Visit Provider Physician Assistant | DX: M17.12 Unilateral primary osteoarthritis, left knee (principal) | CPT/HCPCS: 20610; J1010 ==

== ENCOUNTER → 2025-06-04 10:59 | Outpatient (BNVA) | payer MEDICARE, OTHER, SELFPAY | PROVIDERS: PCP Nurse Practitioner Family; Referring Provider Nurse Practitioner Family; Visit Provider Physician Assistant Surgical | DX: J47.9 Bronchiectasis, uncomplicated (principal); R91.1 Solitary pulmonary nodule | CPT/HCPCS: 99214 ==

== ENCOUNTER 2025-06-24 19:29 | Outpatient (REF) | payer MEDICARE, OTHER, SELFPAY ==
[2025-06-24 19:23] LABS: HCT 41.7 % (36.0-46.0); HGB 13.0 g/dL (11.2-15.7); MCH 28.7 pg (27.0-33.0); MCHC 31.2 % (32.0-36.0); MCV 92 fL (80-95); MPV 10.4 fL (8.0-11.0); Platelet Count 244 10^3/uL (130-400); RBC 4.53 10^6/uL (3.93-5.22); RDW 13.7 % (11.7-14.6); RDW-SD 46.6 fL; WBC 7.62 10^3/uL (4.4-10.8)
[2025-06-24 19:41] LABS: ALT 27 U/L (14-59); AST 24 U/L (15-37); Albumin 4.3 g/dL (3.4-5.0); Alkaline Phosphatase 98 U/L (46-116); Anion Gap 9.8 mmol/L (3-11); BUN 23 mg/dL (7-18); Bilirubin, Total 0.4 mg/dL (0.2-1.0); CO2 28.2 mmol/L (21.0-32.0); Calcium 10.2 mg/dL (8.5-10.1); Chloride 104 mmol/L (98-107); Estimated GFR 86.83 (mL/min/1.73m2); Glucose 186 mg/dL (74-106); Potassium 4.0 mmol/L (3.5-5.1); Sodium 142 mmol/L (136-145); Total Protein 6.9 g/dL (6.4-8.2)
[2025-06-24 21:21] LABS: Folate > 20.0 ng/mL (8.6-20.0)
[2025-06-25 03:41] LABS: Vitamin B12 553 pg/mL (193-986)
[2025-06-25 15:49] LABS: COMMENT (LAB VIEW ONLY) 129.77 mg/dL; Microalb ug/mg Crea 12.3 ug/mg Cr
== END 2025-06-24 19:30 | disposition home or self-care (01) ==
LOC: NCHCN 19:29
PROVIDERS: PCP Nurse Practitioner Family; Visit Provider Nurse Practitioner Family
DX: E11.9 Type 2 diabetes mellitus without complications (principal); Z29.9 Encounter for prophylactic measures, unspecified; R79.89 Other specified abnormal findings of blood chemistry
CPT/HCPCS: 80053; 85027; 82043; 82570; 82607; 82746

== ENCOUNTER 2025-08-08 14:49 | Outpatient (CLI) | payer MEDICARE, OTHER, SELFPAY ==
--- NOTE | 2025-08-08 13:45 | DI.RAD_ITS ---
Exam(s) XR ANKLE LT COMPLETE EXAM: XR ANKLE LT COMPLETE CLINICAL HISTORY: L ankle pain. TECHNIQUE: 2D digital imaging was performed. COMPARISON: CR XR ANKLE RT COMPLETE from 12/05/2023 FINDINGS: 3 views There is abundant soft tissue swelling around the ankle and visualized lower calf. There is no evidence of fracture or widening the ankle mortise. Talar dome appears unremarkable. No obvious degenerative changes in the tibiotalar and subtalar joints. No osseous tarsal coalition. Bone density is age- appropriate. No osseous lesions. No evidence of osteomyelitis. IMPRESSION: Soft tissue swelling around the ankle and partially visualized thigh. No acute osseous findings in the ankle. DATA REPOSITORY: RADIATION DOSE DELIVERED:
== END 2025-08-08 14:50 | disposition home or self-care (01) ==
LOC: DIORS 14:50
PROVIDERS: PCP Nurse Practitioner Family; Referring Provider Nurse Practitioner Family; Visit Provider Physician Assistant
DX: M25.572 Pain in left ankle and joints of left foot (principal); M17.12 Unilateral primary osteoarthritis, left knee; M65.342 Trigger finger, left ring finger
CPT/HCPCS: 99214; 20605; J1010; 73610

== ENCOUNTER 2025-09-03 12:26 | Day surgery (SDC) | payer MEDICARE, OTHER, SELFPAY ==
--- NOTE | 2025-09-03 07:39 | PDOC.DSDIS_ITS ---
Date of service: 09/03/25 Discharge Plan Disposition Patient Disposition: Home Condition: Good Discharge Details Reason For Visit: Left ring trigger finger Attending Provider: Kevin Dubose Primary Care Provider: Ximena Graham Home Meds and New Rx's Prescriptions: Continued dapagliflozin propanediol [Farxiga] 10 mg tablet 10 mg PO DAILY Fiasp FlexTouch U-100 Insulin 100 unit/mL (3 mL) insulin pen 1 sliding scale dose subcut USEASDIRECTD labetalol 200 mg tablet 200 mg PO BID Rx Instructions: Per PCp notes 01/17/25 pt takes 200 mg in AM and 100 mg in HS. RH ondansetron 4 mg tablet,disintegrating 4 mg PO QD-BID PRN (DME) Oxygen Tank See Rx Instructions .Route Patient Comments: 01/29/25 per PCP notes 01/17/25. RH Rx Instructions: As directed pantoprazole 20 mg tablet,delayed release (DR/EC) 40 mg PO DAILY multivitamin tablet 1 tab PO DAILY lisinopril 20 mg tablet 20 mg PO BID famotidine 40 mg tablet 40 mg PO DAILY clopidogrel [Plavix] 75 mg tablet 75 mg PO DAILY amlodipine [Norvasc] 10 mg tablet 10 mg PO DAILY levalbuterol HCl 0.63 mg/3 mL solution for nebulization 0.63 mg inhalation TID Qty: 72 12RF rosuvastatin 10 mg tablet 10 mg PO DAILY cholecalciferol (vitamin D3) [Vitamin D3] 50 mcg (2,000 unit) Capsule 50 mcg PO DAILY gabapentin 300 mg capsule 300 mg PO TID PRN Rx Instructions: sig: one tab qAM, and one tab HS.; third time is prn acetaminophen 500 mg tablet 1,000 mg PO TID Qty: 90 0RF Discharge Instructions Stand Alone Forms: Gracy Carrillo Finger Release, Portal Information Referrals: Kevin Dubose MD [ [facility] STAFF PHYSICIAN, Orthopaedic Surgical] Activity:: Elevate Remove Dressings/Wound Care:: 48 hours Shower/Bathe:: 48 hours Diet:: As Tolerated Discharge Orders Discharge Orders: Discharge Order (Routine); Ordered 09/03/25 Ordered By: Bella Chase
[2025-09-03 13:00] VITALS: BP 159/67; PULSE 72; RESP 18; TEMP 36.3; O2SAT 96
[2025-09-03] MEDS: Lidocaine 1% Multi-Dose W/EPI 1/100,000 50 ML VIAL (14:05)
[2025-09-03] MEDS: Sodium Bicarbonate 50 MEQ/50 ML VIAL (14:06)
[2025-09-03 14:20] VITALS: BP 154/82; PULSE 71; RESP 16; TEMP 36.3; O2SAT 98
--- NOTE | 2025-09-03 16:11 | ROE_ITS ---
Operative Note Operative Note PRE-OP DIAGNOSIS: Left Ring Finger Trigger Finger POST-OP DIAGNOSIS: same PROCEDURE: Trigger Finger Release - Left Ring Finger SURGEON: Kevin Dubose ANESTHESIA TYPE: Local By Surgeon Refer to Anesthesia Record ESTIMATED BLOOD LOSS: 0 PATHOLOGY: none sent COMPLICATIONS: None Patient was transported to: same day Patient's condition: stable Indications: I have seen Ally in clinic for symptoms of a trigger finger. The catching, clicking, locking, and pain limited function. The diagnosis of trigger finger was evident. The symptoms had not responded to conservative measures. I disc ussed trigger finger release with the patient. I reviewed the risks of the procedure to include, but not limited to, bleeding, infection, pain, stiffness, incomplete release, damage to nerves or vessels, continued catching, recurrence. Despite these risks, the patient elected to proceed. Findings: There was a tightened A1 zohaib which was released. The flexor tendons were inspected and the patient was able to move the finger without any catching, clicking, or locking. Procedure Description: Ally was greeted in the preoperative holding area where the correct side was identified and marked. The consent was reviewed with the patient and signed. All questions were answered. She was taken back to the operating room. The patient was placed into the supine position on the operating room table with the left arm on an arm board. All bony prominences were well padded. No prophylactic antibiotics were administered since this was a clean, elective hand surgical case. The left arm was then prepped with Chloraprep and draped in a standard fashion with stockinette and extremity drape. A timeout to confirm correct identity, side and site, procedure, allergies, anesthesia, and medical concerns was performed. The surgical site was marked as a longitudinal incision directly over the A1 p ulley of the involved digit. This was confirmed with palpation during finger flexion. This area, overlying the metacarpal head, was then anesthetized with 1% Lidocaine. The patient tolerated this well and once the anesthetic had setup, the procedure began. A longitudinal incision was made through skin only, approximately 1cm. The deep tissues were dissected bluntly. Once the A1 zohaib and flexor tendons were identified the soft tissue including neurovascular structures were retracted medially and laterally. There were no crossing structures over the A1 zohaib. The proximal edge of the zohaib was identified and the zohaib was incised with tenotomy scissors. There was a release of the tendons once this was fully released. The tendons were then removed from the wound and inspected. Excess synovium was resected. The tendons were then returned and the patient was asked to move the finger into deep flexion and back to extension. There was no recreation of the pre-operative symptoms. The hand was then once more inspected for any A0 zohaib or area of possible constriction. The wound was then irrigated and the skin was closed with a 4-0 Nylon. This was dressed with gauze and a Conform dressing. The patient tolerated the procedure well and was returned to the Same Day Surgery area in a stable condition suffering no known complication. Date of Procedure: 09/03/25
== END 2025-09-03 14:31 | disposition home or self-care (01) ==
LOC: SUR 12:27
PROVIDERS: PCP Nurse Practitioner Family; Visit Provider Student in an Organized Health Care Education/Training Program
PROC: (CPT 26055; principal; 2025-09-03 15:30)
DX: M65.342 Trigger finger, left ring finger (principal)
CPT/HCPCS: 26055; J2004

== ENCOUNTER → 2025-09-16 15:25 | Outpatient (BNVA) | payer MEDICARE, OTHER, SELFPAY | PROVIDERS: PCP Nurse Practitioner Family; Referring Provider Nurse Practitioner Family; Visit Provider Physician Assistant | DX: Z47.89 Encounter for other orthopedic aftercare (principal); M65.342 Trigger finger, left ring finger | CPT/HCPCS: 99024 ==